=== PATIENT | male | born 1965 | race Caucasian/White ===

== ENCOUNTER 2023-01-31 15:10 | Emergency (ER) | payer OTHER ==
[2023-01-31 15:24] VITALS: BP 117/74; PULSE 98; RESP 20; TEMP 98.8
--- NOTE | 2023-01-31 15:45 | ED ---
General Adult HPI - General Chief complaint: Skin/Abscess/Foreign Body Stated complaint: R toe infection Time Seen by Provider: 01/31/23 15:31 Source: patient, RN notes reviewed, old records reviewed Mode of arrival: ambulatory - History of Present Illness Initial comments: 57-year-old male with history of diabetes presenting for evaluation of right second toe swelling and drainage. Patient reports this is been ongoing for approximately one month. He has had no fever, no chills. He does not check his blood glucose regularly. He states he still has feeling in the foot and has not had significant pain. His primary care provider had prescribed a topical or oral antibiotics but the patient states he did not start this. - Related Data Previous Rx's Medication Instructions Recorded Clindamycin [Cleocin] 450 mg PO TID 10 Days #90 cap 01/31/23 Allergies Allergy/AdvReac Type Severity Reaction Status Date / Time Penicillins Allergy Rash/Hives Verified 01/31/23 15:17 Sulfa (Sulfonamide Allergy Rash/Hives Verified 01/31/23 15:17 Antibiotics) Review of Systems ROS Statement: Those systems with pertinent positive or pertinent negative responses have been documented in the HPI. ROS Other: All systems not noted in ROS Statement are negative. Past Medical History Past Medical History: Diabetes Mellitus Additional Past Medical History / Comment(s): cataracts History of Any Multi-Drug Resistant Organisms: None Reported Past Surgical History: Adenoidectomy Past Psychological History: Depression Smoking Status: Vaper Past Alcohol Use History: Occasional Past Drug Use History: Marijuana General Exam General appearance: alert, in no apparent distress Head exam: Present: atraumatic, normocephalic Eye exam: Present: normal appearance ENT exam: Present: normal exam Respiratory exam: Absent: respiratory distress Cardiovascular Exam: Present: regular rate, normal rhythm GI/Abdominal exam: Absent: distended Extremities exam: Present: other (Erythema and drainage, swelling to the right second digit with minimal cellulitis at the base of the digit. There is normal cap refill, and 2+ pedal pulse.) Neurological exam: Present: alert, oriented X3, CN II-XII intact. Absent: motor sensory deficit Psychiatric exam: Present: normal affect, normal mood Course Vital Signs 01/31/23 15:10 Temperature 98.8 F Pulse Rate 98 Respiratory 20 Rate Blood Pressure 117/74 O2 Sat by Pulse 100 Oximetry Medical Decision Making - Medical Decision Making Was pt. sent in by a medical professional or institution (CHARANJIT Medina, CLINICAL PHARMACIST, urgent care, hospital, or longterm...) When possible be specific @ -No Did you speak to anyone other than the patient for history (EMS, parent, family, police, friend...)? What history was obtained from this source @ -No Did you review nursing and triage notes (agree or disagree)? Why? @ -I reviewed and agree with nursing and triage notes Were old charts reviewed (outside hosp., previous admission, EMS record, old EKG, old radiological studies, urgent care reports/EKG's, longterm records)? Report findings @ -No old charts were reviewed Differential Diagnosis (chest pain, altered mental status, abdominal pain women, abdominal pain men, vaginal bleeding, weakness, fever, dyspnea, syncope, headache, dizziness, GI bleed, back pain, seizure, CVA, palpatations, mental health, musculoskeletal)? @Cellulitis, diabetic foot ulcer, sepsis EKG interpreted by me (3pts min.). @ -As above X-rays interpreted by me (1pt min.). @ -None done CT interpreted by me (1pt min.). @ -None done U/S interpreted by me (1pt. min.). @ -None done What testing was considered but not performed or refused? (CT, X-rays, U/S, labs)? Why? @ -None What meds were considered but not given or refused? Why? @ -None Did you discuss the management of the patient with other professionals (professionals i.e. CHARANJIT Medina, CLINICAL PHARMACIST, lab, RT, psych nurse, social sciences department chair, director compensation, teacher, information assurance officer, case monitor)? Give summary @ -No Was smoking cessation discussed for >3mins.? @ -No Was critical care preformed (if so, how long)? @ -No Were there social determinants of health that impacted care today? How? (Homelessness, low income, unemployed, alcoholism, drug addiction, transportation, low edu. Level, literacy, decrease access to med. care, prison, rehab)? @ -No Was there de-escalation of care discussed even if they declined (Discuss DNR or withdrawal of care, Hospice)? DNR status @ -No What co-morbidities impacted this encounter? (DM, HTN, Smoking, COPD, CAD, Cancer, CVA, ARF, Chemo, Hep., AIDS, mental health diagnosis, sleep apnea, morbid obesity)? @ -[Diabetes Was patient admitted / discharged? Hospital course, mention meds given and route, prescriptions, significant lab abnormalities, going to OR and other pertinent info. @ 57-year-old male with diabetic foot ulcers to the right second toe with associated cellulitis. He has no systemic symptoms. This is been an ongoing issue for approximately one month. We'll trial oral antibiotics and follow-up with the wound center. He is given strict return parameters and instructed to return the emergency department with any systemic symptoms or worsening erythema despite being on oral antibiotics. He has a penicillin and sulfa ALLERGY and therefore he is started on clindamycin. He should also follow-up with his primary care provider. Undiagnosed new problem with uncertain prognosis? @ -No Drug Therapy requiring intensive monitoring for toxicity (Heparin, Nitro, Insulin, Cardizem)? @ -No Were any procedures done? @ -No Diagnosis/symptom? @ -Diabetic foot ulcer, cellulitis Acute, or Chronic, or Acute on Chronic? @ -Acute Uncomplicated (without systemic symptoms) or Complicated (systemic symptoms)? @ -default Side effects of treatment? @ -No Exacerbation, Progression, or Severe Exacerbation? @ -No Poses a threat to life or bodily function? How? (Chest pain, [place], [place], pneumonia, PE, COPD, DKA, ARF, appy, cholecystitis, CVA, Diverticulitis, Homicidal, Suicidal, threat to staff... and all critical care pts) @ -[Moderate risk, worsening infection, sepsis Disposition Clinical Impression: Diabetic toe ulcer, Cellulitis Disposition: HOME SELF-CARE Condition: Fair Instructions (If sedation given, give patient instructions): Cellulitis (ED), Diabetic Foot Ulcers (ED) Prescriptions: Clindamycin [Cleocin] 450 mg PO TID 10 Days #90 cap Is patient prescribed a controlled substance at d/c from ED?: No Referrals: Patricio Banuelos DO [Primary Care Provider] - 1-2 days [facility] [NON-STAFF] - 1-2 days Time of Disposition: 15:44
== END 2023-01-31 15:54 | disposition home or self-care (01) ==
LOC: EC 15:10
DX: L03.031 Cellulitis of right toe (principal); F12.90 Cannabis use, unspecified, uncomplicated; F17.290 Nicotine dependence, other tobacco product, uncomplicated; Z88.0 Allergy status to penicillin; Z88.2 Allergy status to sulfonamides; Z86.59 Personal history of other mental and behavioral disorders
CPT/HCPCS: 99283

== ENCOUNTER 2023-02-19 14:11 | Inpatient (IN) | payer OTHER ==
--- NOTE | 2023-02-19 15:22 | ED ---
Skin/Abscess/FB HPI - General Source: patient, RN notes reviewed Mode of arrival: ambulatory Limitations: no limitations <Li Lindsey - Last Filed: 02/19/23 15:21> <Cuong Enciso - Last Filed: 02/19/23 17:44> - General Chief complaint: Skin/Abscess/Foreign Body Stated complaint: Foot/Toe Infection Rt Time Seen by Provider: 02/19/23 15:20 - History of Present Illness Initial comments: This is a 57-year-old male who presents to the emergency department for concerns of a worsening diabetic foot infection. Patient was evaluated here on 01/31 and started on clindamycin. States that he feels like the wound is continuing to get worse. Denies any fevers or chills. I performed the QuickNote portion of this chart. Signed Li Lindsey PA-C. (Li Lindsey) 57-year-old diabetic male presenting to the ED with a chief complaint of right foot wound. Patient initially seen here on 01/31/23 and was discharged home with a prescription of clindamycin. He admits that due to his cataracts, is unsure if he is been taking his medications correctly. Rates that recently, wound has worsened. Patient states that it is spreading and has been draining purulent fluid. Denies fever. No other complaints. (Cuong Enciso) - Related Data Previous Rx's Medication Instructions Recorded Clindamycin [Cleocin] 450 mg PO TID 10 Days #90 cap 01/31/23 Allergies Allergy/AdvReac Type Severity Reaction Status Date / Time Penicillins Allergy Rash/Hives Verified 02/19/23 14:37 Sulfa (Sulfonamide Allergy Rash/Hives Verified 02/19/23 14:37 Antibiotics) Review of Systems ROS Other: All systems not noted in ROS Statement are negative. <Li Lindsey - Last Filed: 02/19/23 15:21> ROS Other: All systems not noted in ROS Statement are negative. <Cuong Enciso - Last Filed: 02/19/23 17:44> ROS Statement: Those systems with pertinent positive or pertinent negative responses have been documented in the HPI. Past Medical History Past Medical History: Diabetes Mellitus Additional Past Medical History / Comment(s): cataracts History of Any Multi-Drug Resistant Organisms: None Reported Past Surgical History: Adenoidectomy Past Psychological History: Depression Smoking Status: Vaper Past Alcohol Use History: Occasional Past Drug Use History: Marijuana <Li Lindsey - Last Filed: 02/19/23 15:21> General Exam Limitations: no limitations <Li Lindsey - Last Filed: 02/19/23 15:21> Limitations: no limitations General appearance: alert, in no apparent distress Respiratory exam: Present: normal lung sounds bilaterally Cardiovascular Exam: Present: regular rate, normal rhythm GI/Abdominal exam: Present: soft Extremities exam: Present: other (Right second toe at MTP approximately 2 x 2 cm of ulceration. At distal phalanx approximately 3 x 3 cm ulceration with surrounding warmth and erythema) Neurological exam: Present: alert, oriented X3 Psychiatric exam: Present: normal affect, normal mood <Cuong Enciso - Last Filed: 02/19/23 17:44> - General Exam Comments Initial Comments: Visual Physical Exam Vital signs reviewed General: Well-appearing, nontoxic, no acute distress. Head: Normocephalic, atraumatic Eyes: PERRLA, EOMI ENT: Airway patent Chest: Nonlabored breathing Skin: No visual rash, normal skin tone Neuro: Alert and oriented 3 Musculoskeletal: No gross abnormalities (Li Lindsey) Course Vital Signs 02/19/23 02/19/23 02/19/23 14:32 16:15 17:17 Temperature 98.6 F 99.4 F 98.6 F Pulse Rate 83 100 100 Respiratory 18 20 20 Rate Blood Pressure 88/56 104/65 104/65 O2 Sat by Pulse 99 99 97 Oximetry Medical Decision Making - Lab Data Result diagrams: 02/19/23 16:33 02/19/23 16:33 <Cuong Enciso - Last Filed: 02/19/23 17:44> - Medical Decision Making Was pt. sent in by a medical professional or institution (, PA, [facility], urgent care, hospital, or halfway...) When possible be specific @ -No Did you speak to anyone other than the patient for history (EMS, parent, family, police, friend...)? What history was obtained from this source @ -No Did you review nursing and triage notes (agree or disagree)? Why? @ -I reviewed and agree with nursing and triage notes Were old charts reviewed (outside hosp., previous admission, EMS record, old EKG, old radiological studies, urgent care reports/EKG's, halfway records)? Report findings @ -Prior chart reviewed on 01/31/23 showing prior visit here with prescription for clindamycin. Differential Diagnosis (chest pain, altered mental status, abdominal pain women, abdominal pain men, vaginal bleeding, weakness, fever, dyspnea, syncope, headache, dizziness, GI bleed, back pain, seizure, CVA, palpatations, mental health, musculoskeletal)? @ -MRSA, sepsis, osteomyelitis. This is not meant to be an all-inclusive list. EKG interpreted by me (3pts min.). @ -None X-rays interpreted by me (1pt min.). @ -X-ray shows bony destruction of the second phalanx consistent with osteomyelitis. CT interpreted by me (1pt min.). @ -None done U/S interpreted by me (1pt. min.). @ -None done What testing was considered but not performed or refused? (CT, X-rays, U/S, labs)? Why? @ -None What meds were considered but not given or refused? Why? @ -None Did you discuss the management of the patient with other professionals (professionals i.e. , CHARANJIT, [employer], lab, RT, psych nurse, social and political studies professor, photographic editor, teacher, staff mine warfare officer, onsite case manager)? Give summary @ -Spoke with Yajaira Umanzor NP, who accepted admission to [facility] Was smoking cessation discussed for >3mins.? @ -No Was critical care preformed (if so, how long)? @ -No Were there social determinants of health that impacted care today? How? (Homelessness, low income, unemployed, alcoholism, drug addiction, trans portation, low edu. Level, literacy, decrease access to med. care, intermediate, rehab)? @ -No Was there de-escalation of care discussed even if they declined (Discuss DNR or withdrawal of care, Hospice)? DNR status @ -No What co-morbidities impacted this encounter? (DM, HTN, Smoking, COPD, CAD, Cancer, CVA, ARF, Chemo, Hep., AIDS, mental health diagnosis, sleep apnea, morbid obesity)? @ -Diabetes Was patient admitted / discharged? Hospital course, mention meds given and route, prescriptions, significant lab abnormalities, going to OR and other pertinent info. @ -Admitted. Delia studies significant for a white count of 12.9, kidney injury with BUNs 25 and creatinine at 1.58, glucose 473, lactic acid 2.4, CRP 17.1. X-ray consistent with osteomyelitis. Patient will be admitted due to osteomyelitis, sepsis. Cultures and wound cultures obtained prior to starting IV antibiotics. Patient fluid resuscitation initiated here in the ED with 2 L bolus. Patient initially hypotensive with systolics 80s. Patient's systolic now 100s. Urgent tachycardic in the 100. Discussed plan of care with patient who is agreement. Undiagnosed new problem with uncertain prognosis? @ -No Drug Therapy requiring intensive monitoring for toxicity (Heparin, Nitro, Insulin, Cardizem)? @ -No Were any procedures done? @ -No Diagnosis/symptom? @ -Sepsis, osteomyelitis Acute, or Chronic, or Acute on Chronic? @ -Acute Uncomplicated (without systemic symptoms) or Complicated (systemic symptoms)? @ -Complicated, hypotension, tachycardia with acute kidney injury. Side effects of treatment? @ -No Exacerbation, Progression, or Severe Exacerbation? @ -No Poses a threat to life or bodily function? How? (Chest pain, [place], [place], pneumonia, PE, COPD, DKA, ARF, appy, cholecystitis, CVA, Diverticulitis, Homicidal, Suicidal, threat to staff... and all critical care pts) @ -Yes, Sepsis. (Cuong Enciso) - Lab Data Lab Results 02/19/23 02/19/23 02/19/23 Range/Units 16:33 16:33 16:33 WBC 12.9 H (3.8-10.6) k/uL RBC 3.97 L (4.30-5.90) m/uL Hgb 10.4 L (13.0-17.5) gm/dL Hct 33.6 L (39.0-53.0) % MCV 84.7 (80.0-100.0) fL MCH 26.2 (25.0-35.0) pg MCHC 30.9 L (31.0-37.0) g/dL RDW 12.8 (11.5-15.5) % Plt Count 356 (150-450) k/uL MPV 7.8 Neutrophils % 81 % Lymphocytes % 12 % Monocytes % 4 % Eosinophils % 1 % Basophils % 0 % Neutrophils # 10.4 H (1.3-7.7) k/uL Lymphocytes # 1.5 (1.0-4.8) k/uL Monocytes # 0.6 (0-1.0) k/uL Eosinophils # 0.1 (0-0.7) k/uL Basophils # 0.0 (0-0.2) k/uL Sodium 127 L (137-145) mmol/L Potassium 5.0 (3.5-5.1) mmol/L Chloride 96 L (98-107) mmol/L Carbon Dioxide 19 L (22-30) mmol/L Anion Gap 12 mmol/L BUN 25 H (9-20) mg/dL Creatinine 1.58 H (0.66-1.25) mg/dL Est GFR (CKD-EPI)AfAm 56 (>60 ml/min/1.73 sqM) Est GFR (CKD-EPI)NonAf 48 (>60 ml/min/1.73 sqM) Glucose 473 H (74-99) mg/dL Plasma Lactic Acid Kem 2.4 H* (0.7-2.0) mmol/L Calcium 9.0 (8.4-10.2) mg/dL Total Bilirubin 0.9 (0.2-1.3) mg/dL AST 35 (17-59) U/L ALT 26 (4-49) U/L Alkaline Phosphatase 124 (38-126) U/L C-Reactive Protein 17.1 H (<1.0) mg/dL Total Protein 7.1 (6.3-8.2) g/dL Albumin 3.4 L (3.5-5.0) g/dL Disposition <Li Lindsey - Last Filed: 02/19/23 15:21> Time of Disposition: 17:25 <Cuong Enciso - Last Filed: 02/19/23 17:44> Clinical Impression: Osteomyelitis Disposition: ADMITTED IP TO THIS HOSP Referrals: Patricio Banuelos DO [Primary Care Provider] - 1-2 days
--- NOTE | 2023-02-19 16:40 | XR ---
EXAMINATION TYPE: XR foot complete RT DATE OF EXAM: 02/19/2023 COMPARISON: NONE HISTORY: 57-year-old male diabetic ulcer right foot, infection, pain TECHNIQUE: 3 views FINDINGS: Soft tissue swelling of the second toe. There is osseous destruction of the second distal phalanx as well as the head and distal shaft of the middle phalanx. Some residual minimal bony debris remains di stally. There appears to be possible subacute fracture involving the base of the second proximal phal anx versus second site of infection. No soft tissue air. Tiny plantar spur. IMPRESSION: 1. Soft tissue swelling of the second toe with osseous destruction of the second distal phalanx and h jhonny of the middle phalanx. Findings in keeping with osteomyelitis. 2. A second area of lucency across the second proximal phalangeal base could represent a subacute fra cture or second site of infection.
[2023-02-19 16:44] LABS: Basophils % (A) 0 %; Eosinophils # (A) 0.1 k/uL (0-0.7); Eosinophils % (A) 1 %; HCT 33.6 % (39.0-53.0); HGB 10.4 gm/dL (13.0-17.5); Lymphocytes # (A) 1.5 k/uL (1.0-4.8); Lymphocytes % (A) 12 %; MCH 26.2 pg (25.0-35.0); MCHC 30.9 g/dL (31.0-37.0); MCV 84.7 fL (80.0-100.0); Mean Platelet Volume 7.8; Monocytes # (A) 0.6 k/uL (0-1.0); Monocytes % (A) 4 %; Neutrophils # (A) 10.4 k/uL (1.3-7.7); Neutrophils % (A) 81 %; Platelet Count 356 k/uL (150-450); RBC 3.97 m/uL (4.30-5.90); RDW 12.8 % (11.5-15.5); WBC 12.9 k/uL (3.8-10.6)
[2023-02-19 16:59] LABS: ALT 26 U/L (4-49); AST 35 U/L (17-59); African American GFR (CKD) 56 (>60 ml/min/1.73 sqM); Albumin 3.4 g/dL (3.5-5.0); Alkaline Phosphatase 124 U/L (38-126); Anion Gap 12 mmol/L; Blood Urea Nitrogen 25 mg/dL (9-20); Carbon Dioxide 19 mmol/L (22-30); Chloride 96 mmol/L (98-107); Glucose 473 mg/dL (74-99); Non-African American GFR(CKD) 48 (>60 ml/min/1.73 sqM); Sodium 127 mmol/L (137-145); Total Bilirubin 0.9 mg/dL (0.2-1.3); Total Protein 7.1 g/dL (6.3-8.2)
[2023-02-19] MEDS ORDERED: SODIUM CHLORIDE 0.9% 1,000 ML IV STA (17:04)
[2023-02-19 17:11] LABS: C Reactive Protein 17.1 mg/dL (<1.0)
[2023-02-19] MEDS ORDERED: SODIUM CHLORIDE 0.9% 2,000 ML IV STA (17:13)
[2023-02-19] MEDS ORDERED: VANCOMYCIN IV PER PHARMACY 1 EACH MISC MISCELLANE PRN (17:45)
[2023-02-19] MEDS ORDERED: ACETAMINOPHEN TAB 325 MG TAB PO PRN (17:49)
[2023-02-19] MEDS ORDERED: IBUPROFEN 400 MG TAB PO PRN (17:49)
[2023-02-19] MEDS ORDERED: NALOXONE 0.4 MG/ML 1 ML VIAL IV PRN (17:49)
[2023-02-19] MEDS ORDERED: VANCOMYCIN 1,500 MG in SODIUM CHLORIDE 0.9% 500 ML 500 ML IVPB ONE (18:00)
[2023-02-19] MEDS: SODIUM CHLORIDE 0.9% 1,000 ML IV SCH ×2 (18:28→23:37)
[2023-02-19 20:04] LABS: Glucose,Whole Blood 291 mg/dL (70-110)
[2023-02-19] MEDS: INSULIN ASPART (NovoLOG) 100 UNIT/ML VIAL SQ SCH (23:36)
[2023-02-20 06:00] LABS: Glucose,Whole Blood 122 mg/dL (70-110)
[2023-02-20] MEDS: INSULIN ASPART (NovoLOG) 100 UNIT/ML VIAL SQ SCH ×4 (06:24→23:05)
[2023-02-20 08:15] LABS: African American GFR (CKD) 79 (>60 ml/min/1.73 sqM); Anion Gap 7 mmol/L; Blood Urea Nitrogen 19 mg/dL (9-20); Calcium 8.4 mg/dL (8.4-10.2); Carbon Dioxide 23 mmol/L (22-30); Chloride 103 mmol/L (98-107); Glucose 115 mg/dL (74-99); Non-African American GFR(CKD) 69 (>60 ml/min/1.73 sqM); Potassium 4.6 mmol/L (3.5-5.1); Sodium 133 mmol/L (137-145)
[2023-02-20] MEDS: ATORVASTATIN 10 MG TAB PO SCH (08:17)
[2023-02-20] MEDS ORDERED: VANCOMYCIN 1,500 MG in SODIUM CHLORIDE 0.9% 500 ML 500 ML IVPB SCH (11:00)
[2023-02-20 11:31] LABS: Glucose,Whole Blood 159 mg/dL (70-110)
[2023-02-20] MEDS: SODIUM CHLORIDE 0.9% 1,000 ML IV SCH ×2 (11:55→18:15)
[2023-02-20 13:25] LABS: Basophils # (A) 0.07 X 10*3/uL (0.00-0.10); Basophils % (A) 0.6 %; Eosinophils # (A) 0.15 X 10*3/uL (0.04-0.35); Eosinophils % (A) 1.3 %; HCT 28.4 % (39.6-50.0); Lymphocytes % (A) 19.4 %; MCH 26.8 pg (27.0-32.0); MCHC 31.7 d/dL (32.0-37.0); MCV 84.5 FL (80.0-97.0); Mean Platelet Volume 9.4 FL (9.5-12.2); Monocytes # (A) 0.69 X 10*3/uL (0.20-1.00); Monocytes % (A) 5.8 %; NRBC Per 100 WBC 0 X 10*3/uL (0.00-0.01); Neutrophils # (A) 8.57 X 10*3/uL (1.80-7.70); Neutrophils % (A) 72.1 %; Platelet Count 290 X 10*3/uL (140-440); RBC 3.36 X 10*6/uL (4.40-5.60); RDW 12.7 % (11.5-14.5); WBC 11.87 X 10*3/uL (4.50-10.00)
[2023-02-20] MEDS ORDERED: INDOMETHACIN 25 MG CAP PO PRN (15:15)
--- NOTE | 2023-02-20 15:48 | P.GSCN ---
History of Present Illness History of present illness: 57-year-old white male patient has history of diabetes patient came on 23 history of right foot second toe swelling and some drainage and this was going on for approximately 1 month patient had no fever or chills and he does not check his blood sugar regularly. Patient was sent home on clindamycin didn't keep his follow-up in the wound clinic patient came today with marked drainage o f the right foot second toe and big toe there is a open wound of the second toe with some drainage of pus and also scab formation noted on the right foot is also or redness spreading to the Doppler dorsal aspect of the foot patient had a x-ray the right foot showed soft tissue swelling and dislocation of the mid and distal phalanx of the right foot second toe Medical history history of diabetes and also patient has history of depression Chest is clear good air air entry both lungs first and second sound normal Abdomen soft nontender vascular femorals are palpable bilateral dorsal pedis is palpable right foot second and big toe has a infected gangrene Plan is patient is an IV antibiotic under care of infectious disease we'll keep the patient and he'll midnight and patient will be scheduled tomorrow for ray amputation of the right foot big toe and second toe this can complication discu ssed patient understands Past Medical History Past Medical History: Diabetes Mellitus Additional Past Medical History / Comment(s): cataracts History of Any Multi-Drug Resistant Organisms: None Reported Past Surgical History: Adenoidectomy Past Psychological History: Depression Smoking Status: Vaper Past Alcohol Use History: Occasional Past Drug Use History: Marijuana Medications and Allergies Home Medications Medication Instructions Recorded Confirmed Type Clindamycin [Cleocin] 450 mg PO TID 10 Days #90 cap 01/31/23 02/19/23 Rx DULoxetine HCL [Cymbalta] 120 mg PO DAILY 02/19/23 02/19/23 History Dulaglutide [Trulicity] 1.5 mg SQ WE 02/19/23 02/19/23 History Indomethacin [Indocin] 50 mg PO Q8H PRN 02/19/23 02/19/23 History Simvastatin [Zocor] 20 mg PO DAILY 02/19/23 02/19/23 History lisinopriL [Zestril] 5 mg PO DAILY 02/19/23 02/19/23 History Allergies Allergy/AdvReac Type Severity Reaction Status Date / Time Penicillins Allergy Rash/Hives Verified 02/19/23 18:19 Sulfa (Sulfonamide Allergy Rash/Hives Verified 02/19/23 18:19 Antibiotics) Surgical - Exam Vital Signs Temp Pulse Resp BP Pulse Ox 98.6 F 83 18 88/56 99 02/19/23 14:32 02/19/23 14:32 02/19/23 14:32 02/19/23 14:32 02/19/23 14:32 Results - Labs 02/20/23 07:26 02/20/23 07:26 Abnormal Lab Results - Last 24 Hours (Table) 02/19/23 02/19/23 02/19/23 Range/Units 16:33 16:33 16:33 WBC 12.9 H (3.8-10.6) k/uL RBC 3.97 L (4.30-5.90) m/uL Hgb 10.4 L (13.0-17.5) gm/dL Hct 33.6 L (39.0-53.0) % MCH (27.0-32.0) pg MCHC 30.9 L (31.0-37.0) g/dL MPV (9.5-12.2) FL Neutrophils # 10.4 H (1.3-7.7) k/uL Sodium 127 L (137-145) mmol/L Chloride 96 L (98-107) mmol/L Carbon Dioxide 19 L (22-30) mmol/L BUN 25 H (9-20) mg/dL Creatinine 1.58 H (0.66-1.25) mg/dL Glucose 473 H (74-99) mg/dL POC Glucose (mg/dL) (70-110) mg/dL Plasma Lactic Acid Kem 2.4 H* (0.7-2.0) mmol/L C-Reactive Protein 17.1 H (<1.0) mg/dL Albumin 3.4 L (3.5-5.0) g/dL 02/19/23 02/20/23 02/20/23 Range/Units 20:03 05:59 07:26 WBC (3.8-10.6) k/uL RBC (4.30-5.90) m/uL Hgb (13.0-17.5) gm/dL Hct (39.0-53.0) % MCH (27.0-32.0) pg MCHC (31.0-37.0) g/dL MPV (9.5-12.2) FL Neutrophils # (1.3-7.7) k/uL Sodium 133 L (137-145) mmol/L Chloride (98-107) mmol/L Carbon Dioxide (22-30) mmol/L BUN (9-20) mg/dL Creatinine (0.66-1.25) mg/dL Glucose 115 H (74-99) mg/dL POC Glucose (mg/dL) 291 H 122 H (70-110) mg/dL Plasma Lactic Acid Kem (0.7-2.0) mmol/L C-Reactive Protein (<1.0) mg/dL Albumin (3.5-5.0) g/dL 02/20/23 02/20/23 Range/Units 07:26 11:30 WBC 11.87 H (3.8-10.6) k/uL RBC 3.36 L (4.30-5.90) m/uL Hgb 9.0 L (13.0-17.5) gm/dL Hct 28.4 L (39.0-53.0) % MCH 26.8 L (27.0-32.0) pg MCHC 31.7 L (31.0-37.0) g/dL MPV 9.4 L (9.5-12.2) FL Neutrophils # 8.57 H (1.3-7.7) k/uL Sodium (137-145) mmol/L Chloride (98-107) mmol/L Carbon Dioxide (22-30) mmol/L BUN (9-20) mg/dL Creatinine (0.66-1.25) mg/dL Glucose (74-99) mg/dL POC Glucose (mg/dL) 159 H (70-110) mg/dL Plasma Lactic Acid Kem (0.7-2.0) mmol/L C-Reactive Protein (<1.0) mg/dL Albumin (3.5-5.0) g/dL Diabetes panel 02/19/23 02/20/23 Range/Units 16:33 07:26 Sodium 127 L 133 L (137-145) mmol/L Potassium 5.0 4.6 (3.5-5.1) mmol/L Chloride 96 L 103 (98-107) mmol/L Carbon Dioxide 19 L 23 (22-30) mmol/L BUN 25 H 19 (9-20) mg/dL Creatinine 1.58 H 1.18 (0.66-1.25) mg/dL Glucose 473 H 115 H (74-99) mg/dL Calcium 9.0 8.4 (8.4-10.2) mg/dL AST 35 (17-59) U/L ALT 26 (4-49) U/L Alkaline Phosphatase 124 (38-126) U/L Total Protein 7.1 (6.3-8.2) g/dL Albumin 3.4 L (3.5-5.0) g/dL Calcium panel 02/19/23 02/20/23 Range/Units 16:33 07:26 Calcium 9.0 8.4 (8.4-10.2) mg/dL Albumin 3.4 L (3.5-5.0) g/dL Pituitary panel 02/19/23 02/20/23 Range/Units 16:33 07:26 Sodium 127 L 133 L (137-145) mmol/L Potassium 5.0 4.6 (3.5-5.1) mmol/L Chloride 96 L 103 (98-107) mmol/L Carbon Dioxide 19 L 23 (22-30) mmol/L BUN 25 H 19 (9-20) mg/dL Creatinine 1.58 H 1.18 (0.66-1.25) mg/dL Glucose 473 H 115 H (74-99) mg/dL Calcium 9.0 8.4 (8.4-10.2) mg/dL Adrenal panel 02/19/23 02/20/23 Range/Units 16:33 07:26 Sodium 127 L 133 L (137-145) mmol/L Potassium 5.0 4.6 (3.5-5.1) mmol/L Chloride 96 L 103 (98-107) mmol/L Carbon Dioxide 19 L 23 (22-30) mmol/L BUN 25 H 19 (9-20) mg/dL Creatinine 1.58 H 1.18 (0.66-1.25) mg/dL Glucose 473 H 115 H (74-99) mg/dL Calcium 9.0 8.4 (8.4-10.2) mg/dL Total Bilirubin 0.9 (0.2-1.3) mg/dL AST 35 (17-59) U/L ALT 26 (4-49) U/L Alkaline Phosphatase 124 (38-126) U/L Total Protein 7.1 (6.3-8.2) g/dL Albumin 3.4 L (3.5-5.0) g/dL
[2023-02-20] MEDS: DULoxetine HCL 60 MG CAPSULE.DR PO SCH (15:53)
[2023-02-20] MEDS: CEFEPIME 2 GM in SODIUM CHLORIDE 0.9% 100 ML IVPB SCH ×2 (15:54→23:52)
[2023-02-20] MEDS: lisinopriL 5 MG TAB PO SCH (15:54)
[2023-02-20] MEDS: metroNIDAZOLE 500 MG TAB PO SCH ×2 (15:54→23:52)
[2023-02-20 17:00] LABS: Glucose,Whole Blood 166 mg/dL (70-110)
--- NOTE | 2023-02-20 19:37 | P.CONS ---
History of Present Illness - Reason for Consult Consult date: 02/20/23 - History of Present Illness Patient is a 57-year-old male with a past medical history significant for diabetes mellitus recently started having a problem with the right second toe with a wound on the dorsal aspect for the patient was evaluated at [facility] on 01/31/2023 patient was discharged home on oral clindamycin and was advised to follow-up at the wound care center with the patient did not make any appointment he was discharged on clindamycin 150 mg 3 p.o. 3 times daily however he was just taking only 1 pill 3 times a day patient subsequently noticed to having increasing swelling redness and foul-smelling drainage especially from the right second toe and also involving the dorsum aspect of the right big toe with worsening swelling redness and foul-smelling drainage patient presented to hospital patient to have diabetic neuropathy denies significant pain he did have some pressure associated with it patient did have some chills denies high-grade fever on presentation to hospital he did have low-grade fever of 99.8 F patient did have white count of 12.9 with a left shift kidney func tion has been normal liver exams are normal lactic acid was elevated patient did have a x-ray of the foot soft tissue swelling of the second toe with a bony destruction of the second distal phalanx and half of the middle phalanx concerning for osteomyelitis patient was started on vancomycin infectious disease was consulted for further management of antibiotic therapy Past Medical History Past Medical History: Diabetes Mellitus Additional Past Medical History / Comment(s): cataracts History of Any Multi-Drug Resistant Organisms: None Reported Past Surgical History: Adenoidectomy Past Psychological History: Depression Smoking Status: Vaper Past Alcohol Use History: Occasional Past Drug Use History: Marijuana Medications and Allergies Home Medications Medication Instructions Recorded Confirmed Type Clindamycin [Cleocin] 450 mg PO TID 10 Days #90 cap 01/31/23 02/19/23 Rx DULoxetine HCL [Cymbalta] 120 mg PO DAILY 02/19/23 02/19/23 History Dulaglutide [Trulicity] 1.5 mg SQ WE 02/19/23 02/19/23 History Indomethacin [Indocin] 50 mg PO Q8H PRN 02/19/23 02/19/23 History Simvastatin [Zocor] 20 mg PO DAILY 02/19/23 02/19/23 History lisinopriL [Zestril] 5 mg PO DAILY 02/19/23 02/19/23 History Allergies Allergy/AdvReac Type Severity Reaction Status Date / Time Penicillins Allergy Rash/Hives Verified 02/19/23 18:19 Sulfa (Sulfonamide Allergy Rash/Hives Verified 02/19/23 18:19 Antibiotics) Physical Exam Vitals: Vital Signs Temp Pulse Pulse Resp BP BP Pulse Ox 02/20/23 06:56 98.7 F 87 18 92/53 99 02/20/23 01:15 96.7 F L 93 18 122/56 96 02/19/23 19:10 98.8 F 67 18 100/64 100 02/19/23 18:31 99.3 F 89 17 98/83 99 02/19/23 18:12 99.8 F H 71 20 100/79 94 L 02/19/23 17:17 98.6 F 100 20 104/65 97 02/19/23 16:15 99.4 F 100 20 104/65 99 02/19/23 14:32 98.6 F 83 18 88/56 99 Intake and Output 02/19/23 02/20/23 02/20/23 22:59 06:59 14:59 Other: # Voids 1 Weight 90.718 kg Results CBC & Chem 7: 02/20/23 07:26 02/20/23 07:26 Labs: Abnormal Lab Results - Last 24 Hours (Table) 02/19/23 02/19/23 02/19/23 Range/Units 16:33 16:33 16:33 WBC 12.9 H (3.8-10.6) k/uL RBC 3.97 L (4.30-5.90) m/uL Hgb 10.4 L (13.0-17.5) gm/dL Hct 33.6 L (39.0-53.0) % MCHC 30.9 L (31.0-37.0) g/dL Neutrophils # 10.4 H (1.3-7.7) k/uL Sodium 127 L (137-145) mmol/L Chloride 96 L (98-107) mmol/L Carbon Dioxide 19 L (22-30) mmol/L BUN 25 H (9-20) mg/dL Creatinine 1.58 H (0.66-1.25) mg/dL Glucose 473 H (74-99) mg/dL POC Glucose (mg/dL) (70-110) mg/dL Plasma Lactic Acid Kem 2.4 H* (0.7-2.0) mmol/L C-Reactive Protein 17.1 H (<1.0) mg/dL Albumin 3.4 L (3.5-5.0) g/dL 02/19/23 02/20/23 02/20/23 Range/Units 20:03 05:59 07:26 WBC (3.8-10.6) k/uL RBC (4.30-5.90) m/uL Hgb (13.0-17.5) gm/dL Hct (39.0-53.0) % MCHC (31.0-37.0) g/dL Neutrophils # (1.3-7.7) k/uL Sodium 133 L (137-145) mmol/L Chloride (98-107) mmol/L Carbon Dioxide (22-30) mmol/L BUN (9-20) mg/dL Creatinine (0.66-1.25) mg/dL Glucose 115 H (74-99) mg/dL POC Glucose (mg/dL) 291 H 122 H (70-110) mg/dL Plasma Lactic Acid Kem (0.7-2.0) mmol/L C-Reactive Protein (<1.0) mg/dL Albumin (3.5-5.0) g/dL 02/20/23 Range/Units 11:30 WBC (3.8-10.6) k/uL RBC (4.30-5.90) m/uL Hgb (13.0-17.5) gm/dL Hct (39.0-53.0) % MCHC (31.0-37.0) g/dL Neutrophils # (1.3-7.7) k/uL Sodium (137-145) mmol/L Chloride (98-107) mmol/L Carbon Dioxide (22-30) mmol/L BUN (9-20) mg/dL Creatinine (0.66-1.25) mg/dL Glucose (74-99) mg/dL POC Glucose (mg/dL) 159 H (70-110) mg/dL Plasma Lactic Acid Kem (0.7-2.0) mmol/L C-Reactive Protein (<1.0) mg/dL Albumin (3.5-5.0) g/dL Assessment and Plan Plan: 1patient was in the hospital with extensive right second and first toe diabetic foot infection concerning for wet gangrene and did have bony destruction on the x-ray concerning for osteomyelitis failing outpatient oral clindamycin therapy. 2patient with multiple antibiotic allergies that would limit the number of antibiotics safe to use. 3we will continue patient on vancomycin watching his kidney function closely however and cefepime and Flagyl to cover for the gram-negative and anaerobes 4we will consult vascular surgery for possible debridement versus amputation of the toe and deep culture We will follow on clinical condition and cultures to further adjust medication if needed Thank you for this consultation we will follow the patient along with you Dictation was produced using [employer] dictation software. please excuse any grammatical, word or spelling errors. Time with Patient: Greater than 30
[2023-02-20 20:18] LABS: Glucose,Whole Blood 150 mg/dL (70-110)
[2023-02-20] MEDS: VANCOMYCIN 1,500 MG in SODIUM CHLORIDE 0.9% 500 ML 500 ML IVPB SCH (23:52)
[2023-02-21] MEDS: SODIUM CHLORIDE 0.9% 1,000 ML IV SCH ×3 (00:11→16:27)
--- NOTE | 2023-02-21 01:49 | P.HPIM ---
History of Present Illness H&P Date: 02/20/23 Chief Complaint: foot infection Patient 57-year-old male with a known history of diabetes type 2 [id number], depression and history of vaping and marijuana use pres ents to ER with complaints of worsening right foot infection. Patient was seen in the ER on 01/31/2023 Menostar antibiotics clindamycin. Patient did take his medications with infectious getting worse which made him come to the ER. Patient is unsure he has been taking his medications correctly and states that he does have cataracts. Wound is draining purulent discharge. Otherwise denies any fever or chills. No cough or sputum problem. No chest pain. No leg swelling. X-ray of the foot showed soft tissue swelling of the second toe with osseous destruction of the second distal phalanx and half of the middle phalanx. Findings in keeping with osteomyelitis. A second area of lucency requesting second proximal phalangeal base could represent a subacute fracture second site of infection. Laboratory data WBC 12.9 hemoglobin 10.4 and platelets 356. Sodium 127 potassium 5.0 chloride 96 bicarb is 19 BUN 25 and creatinine 1.58 and blood sugar is 473. Lactic acid 2.4 CRP 17.1. Liver enzymes are not elevated. Review of Systems Constitutional: Patient denies any fever or chills . no Generalized weakness. Abdomen: Patient denied any nausea or vomiting or abd. pain Cardiovascular: Patient denies any chest pain or short of breath no palpitations. Respiratory: patient denied any cough . no sputum production. No shortness of breath Neurologic: Patient denied any numbness or tingling headache. Musculoskeletal: Patient denies any complaints of joint swelling or deformity. rt foot infection Skin: Negative Psychiatric: Negative Endocrine: No heat or cold intolerance. No recent weight gain. Genitourinary: No dysuria or hematuria. All other 14 point ROS negative except the above Past Medical History Past Medical History: Diabetes Mellitus Additional Past Medical History / Comment(s): cataracts History of Any Multi-Drug Resistant Organisms: None Reported Past Surgical History: Adenoidectomy Past Psychological History: Depression Smoking Status: Vaper Past Alcohol Use History: Occasional Past Drug Use History: Marijuana Medications and Allergies Home Medications Medication Instructions Recorded Confirmed Type Clindamycin [Cleocin] 450 mg PO TID 10 Days #90 cap 01/31/23 02/19/23 Rx DULoxetine HCL [Cymbalta] 120 mg PO DAILY 02/19/23 02/19/23 History Dulaglutide [Trulicity] 1.5 mg SQ WE 02/19/23 02/19/23 History Indomethacin [Indocin] 50 mg PO Q8H PRN 02/19/23 02/19/23 History Simvastatin [Zocor] 20 mg PO DAILY 02/19/23 02/19/23 History lisinopriL [Zestril] 5 mg PO DAILY 02/19/23 02/19/23 History Allergies Allergy/AdvReac Type Severity Reaction Status Date / Time Penicillins Allergy Rash/Hives Verified 02/19/23 18:19 Sulfa (Sulfonamide Allergy Rash/Hives Verified 02/19/23 18:19 Antibiotics) Physical Exam Vitals: Vital Signs Temp Pulse Pulse Resp BP BP Pulse Ox 02/20/23 06:56 98.7 F 87 18 92/53 99 02/20/23 01:15 96.7 F L 93 18 122/56 96 02/19/23 19:10 98.8 F 67 18 100/64 100 02/19/23 18:31 99.3 F 89 17 98/83 99 02/19/23 18:12 99.8 F H 71 20 100/79 94 L 02/19/23 17:17 98.6 F 100 20 104/65 97 02/19/23 16:15 99.4 F 100 20 104/65 99 02/19/23 14:32 98.6 F 83 18 88/56 99 Intake and Output 02/19/23 02/20/23 02/20/23 22:59 06:59 14:59 Other: # Voids 1 Weight 90.718 kg PHYSICAL EXAMINATION: Patient is lying in the bed comfortably, no acute distress, awake alert and oriented.. HEENT: Normocephalic. Neck is supple. Pupils reactive. Nostrils clear. Oral cavity is moist. Neck reveals no JVD, carotid bruits, or thyromegaly. CHEST EXAMINATION: Trachea is central. Symmetrical expansion. Lung meza clear to auscultation and percussion. CARDIAC: Normal S1, S2 with no gallops. No murmurs ABDOMEN: Soft. Bowel sounds present. Nontender. No organomegaly. No abdominal bruits. Extremities: reveal no edema. Right second toe with gangrene with serosanguineous and purulent drainage. No clubbing or cyanosis Neurologically awake, alert, oriented x3 with well-coordinated movements. No focal deficits noted Skin: No rash or skin lesions. Psychiatric: Coperative. Nonsuicidal, Musculoskeletal: No joint swelling or deformity. Normal range of motion. Results CBC & Chem 7: 02/20/23 07:26 02/20/23 07:26 Labs: Abnormal Lab Results - Last 24 Hours (Table) 02/19/23 02/19/23 02/19/23 Range/Units 16:33 16:33 16:33 WBC 12.9 H (3.8-10.6) k/uL RBC 3.97 L (4.30-5.90) m/uL Hgb 10.4 L (13.0-17.5) gm/dL Hct 33.6 L (39.0-53.0) % MCH (27.0-32.0) pg MCHC 30.9 L (31.0-37.0) g/dL MPV (9.5-12.2) FL Neutrophils # 10.4 H (1.3-7.7) k/uL Sodium 127 L (137-145) mmol/L Chloride 96 L (98-107) mmol/L Carbon Dioxide 19 L (22-30) mmol/L BUN 25 H (9-20) mg/dL Creatinine 1.58 H (0.66-1.25) mg/dL Glucose 473 H (74-99) mg/dL POC Glucose (mg/dL) (70-110) mg/dL Plasma Lactic Acid Kem 2.4 H* (0.7-2.0) mmol/L C-Reactive Protein 17.1 H (<1.0) mg/dL Albumin 3.4 L (3.5-5.0) g/dL 02/19/23 02/20/23 02/20/23 Range/Units 20:03 05:59 07:26 WBC (3.8-10.6) k/uL RBC (4.30-5.90) m/uL Hgb (13.0-17.5) gm/dL Hct (39.0-53.0) % MCH (27.0-32.0) pg MCHC (31.0-37.0) g/dL MPV (9.5-12.2) FL Neutrophils # (1.3-7.7) k/uL Sodium 133 L (137-145) mmol/L Chloride (98-107) mmol/L Carbon Dioxide (22-30) mmol/L BUN (9-20) mg/dL Creatinine (0.66-1.25) mg/dL Glucose 115 H (74-99) mg/dL POC Glucose (mg/dL) 291 H 122 H (70-110) mg/dL Plasma Lactic Acid Kem (0.7-2.0) mmol/L C-Reactive Protein (<1.0) mg/dL Albumin (3.5-5.0) g/dL 02/20/23 02/20/23 Range/Units 07:26 11:30 WBC 11.87 H (3.8-10.6) k/uL RBC 3.36 L (4.30-5.90) m/uL Hgb 9.0 L (13.0-17.5) gm/dL Hct 28.4 L (39.0-53.0) % MCH 26.8 L (27.0-32.0) pg MCHC 31.7 L (31.0-37.0) g/dL MPV 9.4 L (9.5-12.2) FL Neutrophils # 8.57 H (1.3-7.7) k/uL Sodium (137-145) mmol/L Chloride (98-107) mmol/L Carbon Dioxide (22-30) mmol/L BUN (9-20) mg/dL Creatinine (0.66-1.25) mg/dL Glucose (74-99) mg/dL POC Glucose (mg/dL) 159 H (70-110) mg/dL Plasma Lactic Acid Kem (0.7-2.0) mmol/L C-Reactive Protein (<1.0) mg/dL Albumin (3.5-5.0) g/dL Thrombosis Risk Factor Assmnt - DVT/VTE Prophylaxis DVT/VTE Prophylaxis: Pharmacologic Prophylaxis ordered - Choose All That Apply Each Factor Represents 1 point: Age 41-60 years Thrombosis Risk Factor Assessment Total Risk Factor Score: 1 Thrombosis Risk Factor Assessment Level: Low Risk Assessment and Plan Assessment: Acute right diabetic foot infection with second toe gangrenous changes and osteomyelitis.Failed outpatient antibiotic therapy. Sepsis secondary to above Hyperglycemia with uncontrolled diabetes type 2 Acute kidney injury likely prerenal Lactic acidosis Cataracts Depression History of vaping and marijuana use DVT prophylaxis with heparin subcu Plan: Patient will be continued on antibiotics in the form of vancomycin and cefepime. ID and vascular surgery was consulted. Continue with IV hydration and monitor renal function. DVT prophylaxis and GI prophylaxis. Follow-up blood cultures and wound cultures. Prognosis guarded at this point. Time with Patient: Greater than 30
[2023-02-21] MEDS: CEFEPIME 2 GM in SODIUM CHLORIDE 0.9% 100 ML IVPB SCH ×3 (04:12→21:24)
[2023-02-21 06:19] LABS: Glucose,Whole Blood 157 mg/dL (70-110)
[2023-02-21] MEDS: INSULIN ASPART (NovoLOG) 100 UNIT/ML VIAL SQ SCH ×4 (06:45→21:25)
[2023-02-21 06:48] LABS: African American GFR (CKD) 82 (>60 ml/min/1.73 sqM); Anion Gap 7 mmol/L; Blood Urea Nitrogen 20 mg/dL (9-20); Calcium 8.4 mg/dL (8.4-10.2); Carbon Dioxide 21 mmol/L (22-30); Chloride 105 mmol/L (98-107); Glucose 145 mg/dL (74-99); Non-African American GFR(CKD) 71 (>60 ml/min/1.73 sqM); Potassium 4.6 mmol/L (3.5-5.1); Sodium 133 mmol/L (137-145)
[2023-02-21] MEDS: ATORVASTATIN 10 MG TAB PO SCH (07:29)
[2023-02-21] MEDS: FAMOTIDINE 20 MG TAB PO SCH (07:29)
[2023-02-21] MEDS: HEPARIN SODIUM,PORCINE/PF 5,000 UNIT/0.5 ML SYRINGE SQ SCH ×2 (07:29→16:27)
[2023-02-21] MEDS: lisinopriL 5 MG TAB PO SCH (07:30)
[2023-02-21] MEDS: metroNIDAZOLE 500 MG TAB PO SCH ×3 (07:34→21:25)
[2023-02-21] MEDS: DULoxetine HCL 60 MG CAPSULE.DR PO SCH (07:34)
[2023-02-21 08:18] LABS: Basophils # (A) 0.05 X 10*3/uL (0.00-0.10); Basophils % (A) 0.5 %; Eosinophils # (A) 0.31 X 10*3/uL (0.04-0.35); Eosinophils % (A) 3.1 %; HCT 26.9 % (39.6-50.0); HGB 8.9 d/dL (12.0-15.0); Lymphocytes # (A) 1.84 X 10*3/uL (0.90-5.00); Lymphocytes % (A) 18.5 %; MCH 27.5 pg (27.0-32.0); MCHC 33.1 d/dL (32.0-37.0); Mean Platelet Volume 9.2 FL (9.5-12.2); Monocytes # (A) 0.57 X 10*3/uL (0.20-1.00); Monocytes % (A) 5.7 %; NRBC Per 100 WBC 0 X 10*3/uL (0.00-0.01); Neutrophils # (A) 7.13 X 10*3/uL (1.80-7.70); Neutrophils % (A) 71.6 %; Platelet Count 280 X 10*3/uL (140-440); RBC 3.24 X 10*6/uL (4.40-5.60); RDW 12.7 % (11.5-14.5); WBC 9.96 X 10*3/uL (4.50-10.00)
[2023-02-21] MEDS: VANCOMYCIN 1,500 MG in SODIUM CHLORIDE 0.9% 500 ML 500 ML IVPB SCH (11:40)
[2023-02-21 11:51] LABS: Glucose,Whole Blood 134 mg/dL (70-110)
--- NOTE | 2023-02-21 13:27 | P.PN ---
Subjective Patient 57-year-old male with a known history of diabetes type 2 [id number], depression and history of vaping and marijuana use presents to ER with complaints of worsening right foot infection. Patient was seen in the ER on 01/31/2023 Menostar antibiotics clindamycin. Patient did take his medications with infectious getting worse which made him come to the ER. Patient is unsure he has been taking his medications correctly and states that he does have cataracts. Wound is draining purulent discharge. Otherwise denies any fever or chills. No cough or sputum problem. No chest pain. No leg swelling. X-ray of the foot showed soft tissue swelling of the second toe with osseous destruction of the second distal phalanx and half of the middle phalanx. Findings in keeping with osteomyelitis. A second area of lucency requesting second proximal phalangeal base could represent a subacute fracture second site of infection. Laboratory data WBC 12.9 hemoglobin 10.4 and platelets 356. Sodium 127 potassium 5.0 chloride 96 bicarb is 19 BUN 25 and creatinine 1.58 and blood sugar is 473. Lactic acid 2.4 CRP 17.1. Liver enzymes are not elevated. 02/21/2023 patient with right foot infection with some gangrenous changes that failed outpatient therapy Patient planned to undergo debridement with vascular surgery to him, I talked to the patient this morning and he AGREEABLE to this plan and he is willing to undergo debridement. Remains on broad-spectrum antibiotics, IV vancomycin, cefepime and Flagyl and normal saline 75 mL/h Objective - Vital Signs Vital signs: Vital Signs Temp 97.5 F L 02/21/23 07:29 Pulse 89 02/21/23 07:29 Resp 20 02/21/23 07:29 BP 103/65 02/21/23 07:29 Pulse Ox 98 02/21/23 07:29 FiO2 Intake & Output 02/20/23 02/21/23 02/21/23 18:59 06:59 18:59 Other: Voiding Method Toilet # Voids 2 2 - Exam GENERAL: The patient is alert and oriented x3, not in any acute distress. Well developed, well nourished. HEENT: Pupils are round and equally reacting to light. EOMI. No scleral icterus. No conjunctival pallor. Normocephalic, atraumatic. No pharyngeal erythema. No thyromegaly. CARDIOVASCULAR: S1 and S2 present. No murmurs, rubs, or gallops. PULMONARY: Chest is clear to auscultation, no wheezing , no crackles. ABDOMEN: Soft, nontender, nondistended, normoactive bowel sounds. No palpable organomegaly. MUSCULOSKELETAL: No joint swelling or deformity. -EXTREMITIES: No cyanosis, clubbing, or pedal edema. Right diabetic foot infe ction of the big toe with dressing in place NEUROLOGICAL: Gross neurological examination did not reveal any focal deficits. SKIN: No rashes. no petechiae. - Labs CBC & Chem 7: 02/21/23 06:05 02/21/23 06:05 Labs: Abnormal Lab Results - Last 24 Hours (Table) 02/20/23 02/20/23 02/20/23 Range/Units 07:26 16:59 20:17 WBC 11.87 H (4.50-10.00) X 10*3/uL RBC 3.36 L (4.40-5.60) X 10*6/uL Hgb 9.0 L (12.0-15.0) d/dL Hct 28.4 L (39.6-50.0) % MCH 26.8 L (27.0-32.0) pg MCHC 31.7 L (32.0-37.0) d/dL MPV 9.4 L (9.5-12.2) FL Neutrophils # 8.57 H (1.80-7.70) X 10*3/uL Sodium (137-145) mmol/L Carbon Dioxide (22-30) mmol/L Glucose (74-99) mg/dL POC Glucose (mg/dL) 166 H 150 H (70-110) mg/dL Hemoglobin A1c (<=6.0) % 02/21/23 02/21/23 02/21/23 Range/Units 06:05 06:05 06:05 WBC (4.50-10.00) X 10*3/uL RBC 3.24 L (4.40-5.60) X 10*6/uL Hgb 8.9 L (12.0-15.0) d/dL Hct 26.9 L (39.6-50.0) % MCH (27.0-32.0) pg MCHC (32.0-37.0) d/dL MPV 9.2 L (9.5-12.2) FL Neutrophils # (1.80-7.70) X 10*3/uL Sodium 133 L (137-145) mmol/L Carbon Dioxide 21 L (22-30) mmol/L Glucose 145 H (74-99) mg/dL POC Glucose (mg/dL) (70-110) mg/dL Hemoglobin A1c 9.0 H (<=6.0) % 02/21/23 02/21/23 Range/Units 06:18 11:49 WBC (4.50-10.00) X 10*3/uL RBC (4.40-5.60) X 10*6/uL Hgb (12.0-15.0) d/dL Hct (39.6-50.0) % MCH (27.0-32.0) pg MCHC (32.0-37.0) d/dL MPV (9.5-12.2) FL Neutrophils # (1.80-7.70) X 10*3/uL Sodium (137-145) mmol/L Carbon Dioxide (22-30) mmol/L Glucose (74-99) mg/dL POC Glucose (mg/dL) 157 H 134 H (70-110) mg/dL Hemoglobin A1c (<=6.0) % Microbiology - Last 24 Hours (Table) 02/19/23 17:41 Gram Stain - Preliminary Toe - Right Second Wound Culture - Preliminary Gram Neg Bacilli Assessment and Plan Assessment: Acute right diabetic foot infection with second toe gangrenous changes and osteomyelitis.Failed outpatient antibiotic therapy. Sepsis secondary to above Hyperglycemia with uncontrolled diabetes type 2 Acute kidney injury likely prerenal Lactic acidosis Cataracts Depression History of vaping and marijuana use Plan: Continue with broad-spectrum antibiotic as per ID team Vascular surgery team on the case and planned for surgical debridement Labs and medication were reviewed.. Continue same treatment. Continue with symptomatic treatment. Resume home medication. Monitor labs and vitals. DVT and GI prophylaxis. Further recommendations as per clinical course of the patient DVT prophylaxis: Subcutaneous heparin GI Prophylaxis: Pepcid PT/OT: Pending Prognosis is guarded
[2023-02-21] MEDS: ONDANSETRON 4 MG/2 ML VIAL IVP PRN (15:17)
[2023-02-21 15:21] LABS: Glucose,Whole Blood 106 mg/dL (70-110)
[2023-02-21] MEDS ORDERED: IV FLUID CONTINUATION 1,000 ML IV ONE ×2 (15:21)
[2023-02-21] MEDS ORDERED: LACTATED RINGERS 1,000 ML IV ONE (15:59)
[2023-02-21] MEDS ORDERED: MIDAZOLAM 2 MG/2 ML VIAL ONE (16:07)
[2023-02-21] MEDS ORDERED: ePHEDrine 50 MG/ML 1 ML VIAL ONE (16:07)
[2023-02-21] MEDS ORDERED: LIDOCAINE 2% INJ 20 MG/ML (2 ML VIAL) ONE (16:07)
[2023-02-21] MEDS ORDERED: PROPOFOL 10 MG/ML 20 ML VIAL IV ONE (16:07)
[2023-02-21] MEDS ORDERED: fentaNYL (PF) 50 MCG/ML 2 ML AMP ONE (16:07)
--- NOTE | 2023-02-21 16:13 | P.PN ---
Subjective Progress Note Date: 02/21/23 Principal diagnosis: Diabetic foot infection Patient is a 57 year old male with a past medical history significant for diabetes mellitus, presented to hospital with worsening swelling redness drainage to the right second toe and also involvement of the right big toe has been diagnosed with possible Osteomyelitis with abnormal x-ray on admission to the hospital. On today's evaluation that is 02/21/2023, the patient denies having any fever or any chills, the patient is breathing comfortably, patient pain to the right foot is currently controlled no chest pain or shortness of breath or cough no abdominal pain or diarrhea Objective - Vital Signs Vital signs: Vital Signs Temp 97.5 F L 02/21/23 07:29 Pulse 89 02/21/23 07:29 Resp 20 02/21/23 07:29 BP 103/65 02/21/23 07:29 Pulse Ox 98 02/21/23 07:29 FiO2 Intake & Output 02/20/23 02/21/23 02/21/23 18:59 06:59 18:59 Other: Voiding Method Toilet # Voids 2 2 - Exam GENERAL DESCRIPTION: A middle-age male lying in bed in no distress RESPIRATORY SYSTEM: Unlabored breathing , decreased breath sounds at bases HEART: S1 S2 regular rate and rhythm , ABDOMEN: Soft , no tenderness EXTREMITIES: Right big toe necrotic dorsum with extensive swelling of the right second toe - Labs CBC & Chem 7: 02/21/23 06:05 02/21/23 06:05 Labs: Abnormal Lab Results - Last 24 Hours (Table) 02/20/23 02/20/23 02/20/23 Range/Units 07:26 16:59 20:17 WBC 11.87 H (4.50-10.00) X 10*3/uL RBC 3.36 L (4.40-5.60) X 10*6/uL Hgb 9.0 L (12.0-15.0) d/dL Hct 28.4 L (39.6-50.0) % MCH 26.8 L (27.0-32.0) pg MCHC 31.7 L (32.0-37.0) d/dL MPV 9.4 L (9.5-12.2) FL Neutrophils # 8.57 H (1.80-7.70) X 10*3/uL Sodium (137-145) mmol/L Carbon Dioxide (22-30) mmol/L Glucose (74-99) mg/dL POC Glucose (mg/dL) 166 H 150 H (70-110) mg/dL Hemoglobin A1c (<=6.0) % 02/21/23 02/21/23 02/21/23 Range/Units 06:05 06:05 06:05 WBC (4.50-10.00) X 10*3/uL RBC 3.24 L (4.40-5.60) X 10*6/uL Hgb 8.9 L (12.0-15.0) d/dL Hct 26.9 L (39.6-50.0) % MCH (27.0-32.0) pg MCHC (32.0-37.0) d/dL MPV 9.2 L (9.5-12.2) FL Neutrophils # (1.80-7.70) X 10*3/uL Sodium 133 L (137-145) mmol/L Carbon Dioxide 21 L (22-30) mmol/L Glucose 145 H (74-99) mg/dL POC Glucose (mg/dL) (70-110) mg/dL Hemoglobin A1c 9.0 H (<=6.0) % 02/21/23 02/21/23 Range/Units 06:18 11:49 WBC (4.50-10.00) X 10*3/uL RBC (4.40-5.60) X 10*6/uL Hgb (12.0-15.0) d/dL Hct (39.6-50.0) % MCH (27.0-32.0) pg MCHC (32.0-37.0) d/dL MPV (9.5-12.2) FL Neutrophils # (1.80-7.70) X 10*3/uL Sodium (137-145) mmol/L Carbon Dioxide (22-30) mmol/L Glucose (74-99) mg/dL POC Glucose (mg/dL) 157 H 134 H (70-110) mg/dL Hemoglobin A1c (<=6.0) % Microbiology - Last 24 Hours (Table) 02/19/23 17:41 Gram Stain - Preliminary Toe - Right Second Wound Culture - Preliminary Gram Neg Bacilli Assessment and Plan (1) Osteomyelitis Current Visit: Yes Status: Acute Code(s): M86.9 - OSTEOMYELITIS, UNSPECIFIED SNOMED Code(s): 37822116 (2) Cellulitis Current Visit: No Status: Acute Code(s): L03.90 - CELLULITIS, UNSPECIFIED SNOMED Code(s): 789233232 (3) Diabetic toe ulcer Current Visit: No Status: Acute Code(s): E11.621 - TYPE 2 DIABETES MELLITUS WITH FOOT ULCER; L97.509 - NON-PRESSURE CHRONIC ULCER OTH PRT UNSP FOOT W UNSP SEVERITY SNOMED Code(s): 538671229 Plan: 1patient was in the hospital with extensive right second and first toe diabetic foot infection concerning for wet gangrene and did have bony destruction on the x-ray concerning for osteomyelitis failing outpatient oral clindamycin therapy. 2patient with multiple antibiotic allergies that would limit the number of antibiotics safe to use. 3 patient to continue patient on vancomycin along with cefepime and Flagyl to cover for the gram-negative and anaerobes 4patient has been evaluated by vascular surgery and planning for amputation of the toe and deep culture Dictation was produced using [employer] dictation software. please excuse any grammatical, word or spelling errors. Time with Patient: Less than 30
[2023-02-21] MEDS: COLLAGENASE 250 UNIT/GM OINTMENT 30 GM TUBE TOPICAL SCH (16:27)
[2023-02-21 17:20] LABS: Glucose,Whole Blood 113 mg/dL (70-110)
--- NOTE | 2023-02-21 18:00 | OP ---
OPERATIVE REPORT DATE OF SERVICE : PREOPERATIVE DIAGNOSIS: Wet gangrene of the right foot involving the big toe and second toe with marked cellulitis in the dorsal aspect of the foot. POSTOPERATIVE DIAGNOSIS: Wet gangrene of the right foot involving the big toe and second toe with marked cellulitis in the dorsal aspect of the foot. PROCEDURE PERFORMED: Ray amputation of the right foot at metatarsophalangeal joint of the big toe and second toe. DESCRIPTION OF PROCEDURE: This patient was brought to the operating room. Under general anesthesia, right foot was prepped, and drapes were applied in a sterile manner. A transverse incision was made at the metatarsophalangeal joint on the dorsal aspect, deepened through skin and fat, and tendons were divided until we reached the fascia. The fascia was all necrotic, and a pocket of pus was drained. Then, the incision was extended up on the dorsal aspect of the foot, deepened through skin and fat, and tendons on the dorsal aspect of the big toe and second toe were divided until we reached the metatarsophalangeal joint. There was all necrotic tissue present at the metatarsophalangeal joint involving the fascia and the subcutaneous tissue. All was excised with a sharp knife. Big toe and second toe were removed, which were sent for deep culture. Hemostasis was well controlled using a hand electrocautery and suture ligated the digital vessels. Wound was copiously irrigated with hydrogen peroxide, saline, and Betadine. Santyl cream was used for the wound, and a pressure dressing was applied. Blood loss was about 40 mL. The patient was transferred to recovery room in satisfactory condition. The patient will be nonweightbearing. MMODL / IJN: [id number] /
[2023-02-21 20:55] LABS: Glucose,Whole Blood 183 mg/dL (70-110)
[2023-02-21] MEDS ORDERED: VANCOMYCIN TROUGH DUE 1 EACH MISC MISCELLANE ONE (22:00)
[2023-02-22] MEDS: HYDROmorphone 1 MG/ML 1 ML SYRINGE IVP PRN (00:50)
[2023-02-22] MEDS: HEPARIN SODIUM,PORCINE/PF 5,000 UNIT/0.5 ML SYRINGE SQ SCH ×4 (00:51→23:51)
[2023-02-22] MEDS: VANCOMYCIN 1,500 MG in SODIUM CHLORIDE 0.9% 500 ML 500 ML IVPB SCH ×2 (01:38→11:17)
[2023-02-22] MEDS: CEFEPIME 2 GM in SODIUM CHLORIDE 0.9% 100 ML IVPB SCH ×3 (05:28→21:29)
[2023-02-22] MEDS: SODIUM CHLORIDE 0.9% 1,000 ML IV SCH (05:33)
[2023-02-22 05:55] LABS: Glucose,Whole Blood 152 mg/dL (70-110)
[2023-02-22 06:40] LABS: African American GFR (CKD) 86 (>60 ml/min/1.73 sqM); Non-African American GFR(CKD) 75 (>60 ml/min/1.73 sqM)
[2023-02-22] MEDS: INSULIN ASPART (NovoLOG) 100 UNIT/ML VIAL SQ SCH ×4 (06:51→21:25)
[2023-02-22 07:13] LABS: Glucose,Whole Blood 138 mg/dL (70-110)
[2023-02-22] MEDS: DULoxetine HCL 60 MG CAPSULE.DR PO SCH (07:55)
[2023-02-22] MEDS: metroNIDAZOLE 500 MG TAB PO SCH ×3 (07:55→21:29)
[2023-02-22] MEDS: ATORVASTATIN 10 MG TAB PO SCH (07:55)
[2023-02-22] MEDS: FAMOTIDINE 20 MG TAB PO SCH (07:55)
[2023-02-22] MEDS: lisinopriL 5 MG TAB PO SCH (07:57)
[2023-02-22] MEDS: HYDROmorphone 0.5 MG/0.5 ML SYRINGE IVP PRN ×2 (09:14→21:30)
[2023-02-22] MEDS: ONDANSETRON 4 MG/2 ML VIAL IVP PRN (09:18)
--- NOTE | 2023-02-22 09:33 | PN ---
PROGRESS NOTE This is a 57-year-old diabetic male patient came with wet gangrene of the big toe and second toe. Yesterday, ray amputation of the right foot big toe and second toe. Base of the wound is clean. No discharge noted. We changed the dressing with Santyl cream. Next dressing will be changed on Friday nonweightbearing. The patient is under care of Infectious Disease IV antibiotic. MMODL / IJN: [id number] /
[2023-02-22 11:02] LABS: Glucose,Whole Blood 148 mg/dL (70-110)
[2023-02-22] MEDS: COLLAGENASE 250 UNIT/GM OINTMENT 30 GM TUBE TOPICAL SCH (11:18)
[2023-02-22 16:32] LABS: Glucose,Whole Blood 167 mg/dL (70-110)
--- NOTE | 2023-02-22 17:59 | P.PN ---
Subjective Patient 57-year-old male with a known history of diabetes type 2 [id number], depression and history of vaping and marijuana use presents to ER with complaints of worsening right foot infection. Patient was seen in the ER on 01/31/2023 Menostar antibiotics clindamycin. Patient did take his medications with infectious getting worse which made him come to the ER. Patient is unsure he has been taking his medications correctly and states that he does have cataracts. Wound is draining purulent discharge. Otherwise denies any fever or chills. No cough or sputum problem. No chest pain. No leg swelling. X-ray of the foot showed soft tissue swelling of the second toe with osseous destruction of the second distal phalanx and half of the middle phalanx. Findings in keeping with osteomyelitis. A second area of lucency requesting second proximal phalangeal base could represent a subacute fracture second site of infection. Laboratory data WBC 12.9 hemoglobin 10.4 and platelets 356. Sodium 127 potassium 5.0 chloride 96 bicarb is 19 BUN 25 and creatinine 1.58 and blood sugar is 473. Lactic acid 2.4 CRP 17.1. Liver enzymes are not elevated. 02/21/2023 patient with right foot infection with some gangrenous changes that failed outpatient therapy Patient planned to undergo debridement with vascular surgery to him, I talked to the patient this morning and he AGREEABLE to this plan and he is willing to undergo debridement. Remains on broad-spectrum antibiotics, IV vancomycin, cefepime and Flagyl and normal saline 75 mL/h 02/22/2023 Patient is status post amputation of his diabetic foot ulcer. Culture is growing Klebsiella oxytoca, this could not be covered with broad- spectrum antibiotic with IV vancomycin, cefepime and Flagyl ID team on the case. Continue with normal saline at 75 mL/h, he has stable borderline blood pressure with systolic 90s to 100 but patient was asymptomatic. Objective - Vital Signs Vital signs: Vital Signs Temp 98.3 F 02/22/23 13:20 Pulse 78 02/22/23 15:36 Resp 15 02/22/23 13:20 BP 95/60 02/22/23 15:36 Pulse Ox 97 02/22/23 15:36 FiO2 Intake & Output 02/21/23 02/22/23 02/22/23 18:59 06:59 18:59 Intake Total 800 Output Total 40 500 Balance 760 -500 Weight 90.718 kg Intake: IV 800 Output: Urine 500 Estimated Blood Loss 40 Other: Voiding Method Urinal # Voids 3 1 - Exam GENERAL: The patient is alert and oriented x3, not in any acute distress. Well developed, well nourished. HEENT: Pupils are round and equally reacting to light. EOMI. No scleral icterus. No conjunctival pallor. Normocephalic, atraumatic. No pharyngeal erythema. No thyromegaly. CARDIOVASCULAR: S1 and S2 present. No murmurs, rubs, or gallops. PULMONARY: Chest is clear to auscultation, no wheezing , no crackles. ABDOMEN: Soft, nontender, nondistended, normoactive bowel sounds. No palpable organomegaly. MUSCULOSKELETAL: No joint swelling or deformity. -EXTREMITIES: No cyanosis, clubbing, or pedal edema. Right diabetic foot infection of the big toe with dressing in place NEUROLOGICAL: Gross neurological examination did not reveal any focal deficits. SKIN: No rashes. no petechiae. - Labs CBC & Chem 7: 02/21/23 06:05 02/22/23 05:50 Labs: Abnormal Lab Results - Last 24 Hours (Table) 02/21/23 02/22/23 02/22/23 Range/Units 20:49 05:54 07:12 POC Glucose (mg/dL) 183 H 152 H 138 H (70-110) mg/dL 02/22/23 02/22/23 Range/Units 11:00 16:30 POC Glucose (mg/dL) 148 H 167 H (70-110) mg/dL Microbiology - Last 24 Hours (Table) 02/19/23 17:41 Gram Stain - Final Toe - Right Second Wound Culture - Final Klebsiella oxytoca 02/19/23 17:41 Blood Culture - Preliminary Blood 02/19/23 17:41 Blood Culture - Preliminary Blood Assessment and Plan Assessment: Acute right diabetic foot infection with second toe gangrenous changes and osteomyelitis.Failed outpatient antibiotic therapy. Sepsis secondary to above Hyperglycemia with uncontrolled diabetes type 2 Acute kidney injury likely prerenal Lactic acidosis Cataracts Depression History of vaping and marijuana use Plan: Continue with broad-spectrum antibiotic as per ID team Vascular surgery team on the case and planned for surgical debridement Labs and medication were reviewed.. Continue same treatment. Continue with symptomatic treatment. Resume home medication. Monitor labs and vitals. DVT and GI prophylaxis. Further recommendations as per clinical course of the patient DVT prophylaxis: Subcutaneous heparin GI Prophylaxis: Pepcid PT/OT: Pending Prognosis is guarded
[2023-02-22 20:03] LABS: Glucose,Whole Blood 151 mg/dL (70-110)
[2023-02-23] MEDS: SODIUM CHLORIDE 0.9% 1,000 ML IV SCH ×3 (00:31→21:45)
[2023-02-23] MEDS: VANCOMYCIN 1,500 MG in SODIUM CHLORIDE 0.9% 500 ML 500 ML IVPB SCH (00:31)
[2023-02-23] MEDS: CEFEPIME 2 GM in SODIUM CHLORIDE 0.9% 100 ML IVPB SCH ×3 (04:01→21:36)
[2023-02-23 06:17] LABS: Glucose,Whole Blood 163 mg/dL (70-110)
[2023-02-23] MEDS: INSULIN ASPART (NovoLOG) 100 UNIT/ML VIAL SQ SCH ×4 (06:53→21:39)
--- NOTE | 2023-02-23 08:16 | P.PN ---
Subjective Progress Note Date: 02/22/23 Principal diagnosis: Diabetic foot infection Patient is a 57 year old male with a past medical history significant for diabetes mellitus, presented to hospital with worsening swelling redness drainage to the right second toe and also involvement of the right big toe has been diagnosed with possible Osteomyelitis with abnormal x-ray on admission to the hospital.Patient is status post amputation of the right foot at metatarsophalangeal joint of the right big toe and second toe completed on 02/21/2023. On today's evaluation that is 02/22/2023 patient denies having any fever or any chills pain to the right foot is currently controlled patient denies having any chest pain or shortness of breath or cough no nausea vomiting no abdominal pain or diarrhea Objective - Vital Signs Vital signs: Vital Signs Temp 98.3 F 02/22/23 13:20 Pulse 78 02/22/23 13:20 Resp 15 02/22/23 13:20 BP 84/58 02/22/23 13:20 Pulse Ox 98 02/22/23 13:20 FiO2 Intake & Output 02/21/23 02/22/23 02/22/23 18:59 06:59 18:59 Intake Total 800 Output Total 40 500 Balance 760 -500 Weight 90.718 kg Intake: IV 800 Output: Urine 500 Estimated Blood Loss 40 Other: Voiding Method Urinal # Voids 3 1 - Exam GENERAL DESCRIPTION: A middle-age male lying in bed in no distress RESPIRATORY SYSTEM: Unlabored breathing , decreased breath sounds at bases HEART: S1 S2 regular rate and rhythm , ABDOMEN: Soft , no tenderness EXTREMITIES: Right big and second toe amputation site wound is currently dressed no drainage on the dressing - Labs CBC & Chem 7: 02/21/23 06:05 02/22/23 05:50 Labs: Abnormal Lab Results - Last 24 Hours (Table) 02/21/23 02/21/23 02/22/23 Range/Units 17:17 20:49 05:54 POC Glucose (mg/dL) 113 H 183 H 152 H (70-110) mg/dL 02/22/23 02/22/23 Range/Units 07:12 11:00 POC Glucose (mg/dL) 138 H 148 H (70-110) mg/dL Microbiology - Last 24 Hours (Table) 02/19/23 17:41 Gram Stain - Final Toe - Right Second Wound Culture - Final Klebsiella oxytoca 02/19/23 17:41 Blood Culture - Preliminary Blood 02/19/23 17:41 Blood Culture - Preliminary Blood Assessment and Plan (1) Osteomyelitis Current Visit: Yes Status: Acute Code(s): M86.9 - OSTEOMYELITIS, UNSPECIFIED SNOMED Code(s): 44665022 (2) Cellulitis Current Visit: No Status: Acute Code(s): L03.90 - CELLULITIS, UNSPECIFIED SNOMED Code(s): 288893991 (3) Diabetic toe ulcer Current Visit: No Status: Acute Code(s): E11.621 - TYPE 2 DIABETES MELLITUS WITH FOOT ULCER; L97.509 - NON-PRESSURE CHRONIC ULCER OTH PRT UNSP FOOT W UNSP SEVERITY SNOMED Code(s): 999501119 Plan: 1patient was in the hospital with extensive right second and first toe diabetic foot infection concerning for wet gangrene and did have bony destruction on the x-ray concerning for osteomyelitis failing outpatient oral clindamycin therapy. 2patient with multiple antibiotic allergies that would limit the number of antibiotics safe to use. 3 patient is status post amputation of the right first and second toe and deep culture which are currently pending 4- patient to continue patient on vancomycin along with cefepime and Flagyl while waiting for the cultures to finalize Dictation was produced using [employer] dictation software. please excuse any grammatical, word or spelling errors. Time with Patient: Less than 30
[2023-02-23] MEDS: lisinopriL 5 MG TAB PO SCH (08:46)
[2023-02-23] MEDS: metroNIDAZOLE 500 MG TAB PO SCH ×3 (08:49→21:38)
[2023-02-23] MEDS: HEPARIN SODIUM,PORCINE/PF 5,000 UNIT/0.5 ML SYRINGE SQ SCH ×2 (08:49→17:48)
[2023-02-23] MEDS: FAMOTIDINE 20 MG TAB PO SCH (08:49)
[2023-02-23] MEDS: DULoxetine HCL 60 MG CAPSULE.DR PO SCH (08:49)
[2023-02-23] MEDS: ATORVASTATIN 10 MG TAB PO SCH (08:49)
[2023-02-23] MEDS: COLLAGENASE 250 UNIT/GM OINTMENT 30 GM TUBE TOPICAL SCH (09:16)
[2023-02-23 10:09] LABS: African American GFR (CKD) 82 (>60 ml/min/1.73 sqM); Anion Gap 5 mmol/L; Blood Urea Nitrogen 17 mg/dL (9-20); Calcium 8.1 mg/dL (8.4-10.2); Carbon Dioxide 22 mmol/L (22-30); Chloride 105 mmol/L (98-107); Glucose 163 mg/dL (74-99); Non-African American GFR(CKD) 71 (>60 ml/min/1.73 sqM); Potassium 4.6 mmol/L (3.5-5.1); Sodium 132 mmol/L (137-145)
[2023-02-23 10:33] LABS: Basophils % (A) 0 %; Eosinophils # (A) 0.3 k/uL (0-0.7); Eosinophils % (A) 5 %; HCT 27.6 % (39.0-53.0); HGB 9.1 gm/dL (13.0-17.5); Hypochromasia Slight; Lymphocytes # (A) 1.4 k/uL (1.0-4.8); Lymphocytes % (A) 21 %; MCH 28.2 pg (25.0-35.0); MCHC 32.8 g/dL (31.0-37.0); Mean Platelet Volume 7.4; Monocytes # (A) 0.3 k/uL (0-1.0); Monocytes % (A) 5 %; Neutrophils # (A) 4.4 k/uL (1.3-7.7); Neutrophils % (A) 66 %; Platelet Count 265 k/uL (150-450); RBC 3.21 m/uL (4.30-5.90); RDW 12.9 % (11.5-15.5); WBC 6.7 k/uL (3.8-10.6)
[2023-02-23] MEDS ORDERED: LORazepam 2 MG/ML INJ ONE (11:57)
[2023-02-23] MEDS ORDERED: LORazepam 2 MG/ML INJ IV STA (11:57)
[2023-02-23] MEDS ORDERED: LORazepam 2 MG/ML INJ IV PRN (15:14)
--- NOTE | 2023-02-23 15:18 | P.PN ---
Subjective Patient 57-year-old male with a known history of diabetes type 2 [id number], depression and history of vaping and marijuana use presents to ER with complaints of worsening right foot infection. Patient was seen in the ER on 01/31/2023 Menostar antibiotics clindamycin. Patient did take his medications with infectious getting worse which made him come to the ER. Patient is unsure he has been taking his medications correctly and states that he does have cataracts. Wound is draining purulent discharge. Otherwise denies any fever or chills. No cough or sputum problem. No chest pain. No leg swelling. X-ray of the foot showed soft tissue swelling of the second toe with osseous destruction of the second distal phalanx and half of the middle phalanx. Findings in keeping with osteomyelitis. A second area of lucency requesting second proximal phalangeal base could represent a subacute fracture second site of infection. Laboratory data WBC 12.9 hemoglobin 10.4 and platelets 356. Sodium 127 potassium 5.0 chloride 96 bicarb is 19 BUN 25 and creatinine 1.58 and blood sugar is 473. Lactic acid 2.4 CRP 17.1. Liver enzymes are not elevated. 02/21/2023 patient with right foot infection with some gangrenous changes that failed outpatient therapy Patient planned to undergo debridement with vascular surgery to him, I talked to the patient this morning and he AGREEABLE to this plan and he is willing to undergo debridement. Remains on broad-spectrum antibiotics, IV vancomycin, cefepime and Flagyl and normal saline 75 mL/h 02/22/2023 Patient is status post amputation of his diabetic foot ulcer. Culture is growing Klebsiella oxytoca, this could not be covered with broad- spectrum antibiotic with IV vancomycin, cefepime and Flagyl ID team on the case. Continue with normal saline at 75 mL/h, he has stable borderline blood pressure with systolic 90s to 100 but patient was asymptomatic. 02/23/2023 Patient status post debridement of his right foot cellulitis and wound culture growing Klebsiella which is covered with antibiotic per ID team, currently on vancomycin and cefepime and Flagyl. Patient today got agitated with the staff and he was very aggressive maintenance risks to self and staff there for acute event 1 time dose of 1 mg help to come down, after that he told the staff he feels very depressed and he wants to commit suicide. Sitter was placed at bedside and suicidal precautions was initiated and with psych consult. Discussed with the staff and bedside as patient cannot leave AMA otherwise needs to be petitioned and she verbalized understanding and acceptance. Objective - Vital Signs Vital signs: Vital Signs Temp 97.8 F 02/23/23 06:49 Pulse 87 02/23/23 06:49 Resp 16 02/23/23 10:15 BP 100/67 02/23/23 06:49 Pulse Ox 98 02/23/23 06:49 FiO2 Intake & Output 02/22/23 02/23/23 02/23/23 18:59 06:59 18:59 Intake Total 200 Output Total 1300 400 Balance -1300 -200 Intake: Oral 200 Output: Urine 1300 400 Other: Voiding Method Urinal # Voids 3 - Exam GENERAL: The patient is alert and oriented x3, not in any acute distress. Well developed, well nourished. HEENT: Pupils are round and equally reacting to light. EOMI. No scleral icterus. No conjunctival pallor. Normocephalic, atraumatic. No pharyngeal erythema. No thyromegaly. CARDIOVASCULAR: S1 and S2 present. No murmurs, rubs, or gallops. PULMONARY: Chest is clear to auscultation, no wheezing , no crackles. ABDOMEN: Soft, nontender, nondistended, normoactive bowel sounds. No palpable organomegaly. MUSCULOSKELETAL: No joint swelling or deformity. -EXTREMITIES: No cyanosis, clubbing, or pedal edema. Right diabetic foot infection of the big toe with dressing in place NEUROLOGICAL: Gross neurological examination did not reveal any focal deficits. SKIN: No rashes. no petechiae. - Labs CBC & Chem 7: 02/23/23 09:30 02/23/23 09:30 Labs: Abnormal Lab Results - Last 24 Hours (Table) 02/22/23 02/22/23 02/23/23 Range/Units 16:30 19:56 06:15 RBC (4.30-5.90) m/uL Hgb (13.0-17.5) gm/dL Hct (39.0-53.0) % Sodium (137-145) mmol/L Glucose (74-99) mg/dL POC Glucose (mg/dL) 167 H 151 H 163 H (70-110) mg/dL Calcium (8.4-10.2) mg/dL 02/23/23 02/23/23 Range/Units 09:30 09:30 RBC 3.21 L (4.30-5.90) m/uL Hgb 9.1 L (13.0-17.5) gm/dL Hct 27.6 L (39.0-53.0) % Sodium 132 L (137-145) mmol/L Glucose 163 H (74-99) mg/dL POC Glucose (mg/dL) (70-110) mg/dL Calcium 8.1 L (8.4-10.2) mg/dL Microbiology - Last 24 Hours (Table) 02/19/23 17:41 Anaerobic Culture - Final Foot - Right 02/21/23 16:30 Tissue Culture - Preliminary Toe - Right First 02/19/23 17:41 Blood Culture - Preliminary Blood 02/19/23 17:41 Blood Culture - Preliminary Blood Assessment and Plan Assessment: Acute right diabetic foot infection with second toe gangrenous changes and osteomyelitis.Failed outpatient antibiotic therapy. Sepsis secondary to above Depression with suicidal ideation Hyperglycemia with uncontrolled diabetes type 2 Acute kidney injury likely prerenal Lactic acidosis Cataracts Depression History of vaping and marijuana use Plan: Continue with broad-spectrum antibiotic as per ID team Vascular surgery team on the case and planned for surgical debridement Suicidal precautions with psych consult Labs and medication were reviewed.. Continue same treatment. Continue with symptomatic treatment. Resume home medication. Monitor labs and vitals. DVT and GI prophylaxis. Further recommendations as per clinical course of the patient DVT prophylaxis: Subcutaneous heparin GI Prophylaxis: Pepcid PT/OT: Pending Prognosis is guarded
--- NOTE | 2023-02-23 16:35 | P.PN ---
Subjective Progress Note Date: 02/23/23 Principal diagnosis: Diabetic foot infection Patient is a 57 year old male with a past medical history significant for diabetes mellitus, presented to hospital with worsening swelling redness drainage to the right second toe and also involvement of the right big toe has been diagnosed with possible Osteomyelitis with abnormal x-ray on admission to the hospital.Patient is status post amputation of the right foot at metatarsophalangeal joint of the right big toe and second toe completed on 02/21/2023. On today's evaluation that is 02/23/2023 patient remains to be afebrile, the patient pain to the right foot is currently controlled, patient denies chest pain or shortness of breath or cough no nausea vomiting no abdominal pain or diarrhea Objective - Vital Signs Vital signs: Vital Signs Temp 97.8 F 02/23/23 06:49 Pulse 87 02/23/23 06:49 Resp 16 02/23/23 10:15 BP 100/67 02/23/23 06:49 Pulse Ox 98 02/23/23 06:49 FiO2 Intake & Output 02/22/23 02/23/23 02/23/23 18:59 06:59 18:59 Intake Total 200 Output Total 1300 400 Balance -1300 -200 Intake: Oral 200 Output: Urine 1300 400 Other: Voiding Method Urinal # Voids 3 - Exam GENERAL DESCRIPTION: A middle-age male lying in bed in no distress RESPIRATORY SYSTEM: Unlabored breathing , decreased breath sounds at bases HEART: S1 S2 regular rate and rhythm , ABDOMEN: Soft , no tenderness EXTREMITIES: Right big and second toe amputation site wound is currently dressed no drainage on the dressing - Labs CBC & Chem 7: 02/23/23 09:30 02/23/23 09:30 Labs: Abnormal Lab Results - Last 24 Hours (Table) 02/22/23 02/22/23 02/23/23 Range/Units 16:30 19:56 06:15 RBC (4.30-5.90) m/uL Hgb (13.0-17.5) gm/dL Hct (39.0-53.0) % Sodium (137-145) mmol/L Glucose (74-99) mg/dL POC Glucose (mg/dL) 167 H 151 H 163 H (70-110) mg/dL Calcium (8.4-10.2) mg/dL 02/23/23 02/23/23 Range/Units 09:30 09:30 RBC 3.21 L (4.30-5.90) m/uL Hgb 9.1 L (13.0-17.5) gm/dL Hct 27.6 L (39.0-53.0) % Sodium 132 L (137-145) mmol/L Glucose 163 H (74-99) mg/dL POC Glucose (mg/dL) (70-110) mg/dL Calcium 8.1 L (8.4-10.2) mg/dL Microbiology - Last 24 Hours (Table) 02/19/23 17:41 Anaerobic Culture - Final Foot - Right 02/21/23 16:30 Tissue Culture - Preliminary Toe - Right First 02/19/23 17:41 Blood Culture - Preliminary Blood 02/19/23 17:41 Blood Culture - Preliminary Blood Assessment and Plan (1) Osteomyelitis Current Visit: Yes Status: Acute Code(s): M86.9 - OSTEOMYELITIS, UNSPECIFIED SNOMED Code(s): 51855260 (2) Cellulitis Current Visit: No Status: Acute Code(s): L03.90 - CELLULITIS, UNSPECIFIED SNOMED Code(s): 895530991 (3) Diabetic toe ulcer Current Visit: No Status: Acute Code(s): E11.621 - TYPE 2 DIABETES MELLITUS WITH FOOT ULCER; L97.509 - NON-PRESSURE CHRONIC ULCER OTH PRT UNSP FOOT W UNSP SEVERITY SNOMED Code(s): 040491736 Plan: 1patient was in the hospital with extensive right second and first toe diabetic foot infection concerning for wet gangrene and did have bony destruction on the x-ray concerning for osteomyelitis failing outpatient oral clindamycin therapy. 2patient with multiple antibiotic allergies that would limit the number of antibiotics safe to use. 3 patient is status post amputation of the right first and second toe and deep culture which are currently pending, superficial culture did grew Klebsiella that is a sensitive pathogen 4- patient to continue with cefepime and Flagyl however vancomycin has been discontinued Dictation was produced using [employer] software. please excuse any grammatical, word or spelling errors. Time with Patient: Less than 30
[2023-02-23 16:41] LABS: Glucose,Whole Blood 164 mg/dL (70-110)
--- NOTE | 2023-02-23 16:50 | P.PN ---
Progress Note - Text Patient was seen today this patient came with the wet gangrene of the right foot big toe and second toe patient went for ray amputation today we have changed the dressing we been using Santyl cream base of the wound is clean no discharge noted we will continue with Santyl cream and patient is under care of infectious disease for IV antibiotic
[2023-02-23] MEDS: HYDROmorphone 1 MG/ML 1 ML SYRINGE IVP PRN ×2 (18:10→21:37)
[2023-02-23 20:19] LABS: Glucose,Whole Blood 115 mg/dL (70-110)
[2023-02-24] MEDS: CEFEPIME 2 GM in SODIUM CHLORIDE 0.9% 100 ML IVPB SCH (04:12)
[2023-02-24] MEDS: HEPARIN SODIUM,PORCINE/PF 5,000 UNIT/0.5 ML SYRINGE SQ SCH ×3 (04:15→15:19)
[2023-02-24 06:12] LABS: Glucose,Whole Blood 177 mg/dL (70-110)
[2023-02-24] MEDS: INSULIN ASPART (NovoLOG) 100 UNIT/ML VIAL SQ SCH ×4 (06:48→21:21)
[2023-02-24 07:02] LABS: African American GFR (CKD) >90 (>60 ml/min/1.73 sqM); Non-African American GFR(CKD) 78 (>60 ml/min/1.73 sqM)
[2023-02-24] MEDS: FAMOTIDINE 20 MG TAB PO SCH (08:04)
[2023-02-24] MEDS: DULoxetine HCL 60 MG CAPSULE.DR PO SCH (08:04)
[2023-02-24] MEDS: metroNIDAZOLE 500 MG TAB PO SCH ×3 (08:05→21:21)
[2023-02-24] MEDS: ATORVASTATIN 10 MG TAB PO SCH (08:05)
[2023-02-24] MEDS: lisinopriL 5 MG TAB PO SCH (08:05)
[2023-02-24] MEDS: COLLAGENASE 250 UNIT/GM OINTMENT 30 GM TUBE TOPICAL SCH (08:10)
[2023-02-24] MEDS: ONDANSETRON 4 MG/2 ML VIAL IVP PRN (10:58)
[2023-02-24 11:40] LABS: Glucose,Whole Blood 309 mg/dL (70-110)
[2023-02-24] MEDS ORDERED: VANCOMYCIN IV PER PHARMACY 1 EACH MISC MISCELLANE PRN (13:12)
--- NOTE | 2023-02-24 13:57 | P.PN ---
Subjective Patient 57-year-old male with a known history of diabetes type 2 [id number], depression and history of vaping and marijuana use presents to ER with complaints of worsening right foot infection. Patient was seen in the ER on 01/31/2023 Menostar antibiotics clindamycin. Patient did take his medications with infectious getting worse which made him come to the ER. Patient is unsure he has been taking his medications correctly and states that he does have cataracts. Wound is draining purulent discharge. Otherwise denies any fever or chills. No cough or sputum problem. No chest pain. No leg swelling. X-ray of the foot showed soft tissue swelling of the second toe with osseous destruction of the second distal phalanx and half of the middle phalanx. Findings in keeping with osteomyelitis. A second area of lucency requesting second proximal phalangeal base could represent a subacute fracture second site of infection. Laboratory data WBC 12.9 hemoglobin 10.4 and platelets 356. Sodium 127 potassium 5.0 chloride 96 bicarb is 19 BUN 25 and creatinine 1.58 and blood sugar is 473. Lactic acid 2.4 CRP 17.1. Liver enzymes are not elevated. 02/21/2023 patient with right foot infection with some gangrenous changes that failed outpatient therapy Patient planned to undergo debridement with vascular surgery to him, I talked to the patient this morning and he AGREEABLE to this plan and he is willing to undergo debridement. Remains on broad-spectrum antibiotics, IV vancomycin, cefepime and Flagyl and normal saline 75 mL/h 02/22/2023 Patient is status post amputation of his diabetic foot ulcer. Culture is growing Klebsiella oxytoca, this could not be covered with broad- spectrum antibiotic with IV vancomycin, cefepime and Flagyl ID team on the case. Continue with normal saline at 75 mL/h, he has stable borderline blood pressure with systolic 90s to 100 but patient was asymptomatic. 02/23/2023 Patient status post debridement of his right foot cellulitis and wound culture growing Klebsiella which is covered with antibiotic per ID team, currently on vancomycin and cefepime and Flagyl. Patient today got agitated with the staff and he was very aggressive maintenance risks to self and staff there for acute event 1 time dose of 1 mg help to come down, after that he told the staff he feels very depressed and he wants to commit suicide. Sitter was placed at bedside and suicidal precautions was initiated and with psych consult. Discussed with the staff and bedside as patient cannot leave AMA otherwise needs to be petitioned and she verbalized understanding and acceptance. 02/24/2023 Patient with diabetic foot ulcer and osteomyelitis, and culture is growing many bacteria, see report. Patient currently is covered with vancomycin and ceftriaxone and Flagyl. Also is getting gentle hydration Creatinine stabilizing within the reference range at 1.0. Less than patient got agitated and he was sent some placental comments therefore sitter was placed at bedside and suicidal precautions was placed and I discussed this with psychiatric team, and evaluated the patient This morning his wound looks better and he looks more calm descent he does not have active plantar cath himself but if it happens passively he will not resisted. He think that his best friend is his mom antecubitum his heart and that he has seen in THIS LIFE. Active Medications Generic Name Dose Route Start Last Admin Trade Name Freq PRN Reason Stop Dose Admin Acetaminophen 650 mg 02/19/23 17:49 Acetaminophen Tab 325 Mg Tab PO Q6HR PRN Mild Pain or Fever > 100.5 Atorvastatin Calcium 10 mg 02/20/23 09:00 02/24/23 08:05 Atorvastatin 10 Mg Tab PO 10 mg DAILY ROSE Administration Collagenase 1 applic 02/21/23 14:15 02/24/23 08:10 Collagenase 250 Unit/Gm Ointment 30 Gm Tube TOPICAL 1 applic DAILY ROSE Administration Protocol Duloxetine HCl 120 mg 02/20/23 15:30 02/24/23 08:04 Duloxetine Hcl 60 Mg Capsule.Dr PO 120 mg DAILY ROSE Administration Famotidine 20 mg 02/21/23 09:00 02/24/23 08:04 Famotidine 20 Mg Tab PO 20 mg DAILY ROSE Administration Heparin Sodium (Porcine) 5,000 unit 02/21/23 08:00 02/24/23 08:05 Heparin Sodium,Porcine/Pf 5,000 Unit/0.5 Ml Syringe SQ 5,000 unit Q8HR ROSE Administration Hydromorphone HCl 1 mg 02/19/23 17:49 02/23/23 21:37 Hydromorphone 1 Mg/Ml 1 Ml Syringe IVP 1 mg Q3HR PRN Administration Severe Pain (Scale 7 to 10) Hydromorphone HCl 0.5 mg 02/19/23 17:49 02/22/23 21:30 Hydromorphone 0.5 Mg/0.5 Ml Syringe IVP 0.5 mg Q3HR PRN Administration Moderate Pain (Scale 4 to 6) Sodium Chloride 1,000 mls @ 75 mls/hr 02/21/23 01:45 02/23/23 21:45 Saline 0.9% IV Not Given .[id number] [facility] Ceftriaxone Sodium 2 gm/ 50 mls @ 100 mls/hr 02/24/23 13:30 Sodium Chloride IVPB Q24HR [facility] Protocol Vancomycin HCl 1,500 mg/ 500 mls @ 167 mls/hr 02/24/23 13:30 Sodium Chloride IVPB Q12HR@0000,1200 [facility] Ibuprofen 400 mg 02/19/23 17:49 02/20/23 08:17 Ibuprofen 400 Mg Tab PO 400 mg Q6HR PRN Administration Mild Pain or Fever > 100.5 Indomethacin 50 mg 02/20/23 15:15 Indomethacin 25 Mg Cap PO Q8H PRN Pain Insulin Aspart 0 unit 02/19/23 22:37 02/24/23 11:45 Insulin Aspart (Novolog) 100 Unit/Ml Vial SQ 8 unit ACHS [facility] Administration Protocol Lisinopril 5 mg 02/20/23 15:30 02/24/23 08:05 Lisinopril 5 Mg Tab PO 5 mg DAILY [facility] Administration Lorazepam 1 mg 02/23/23 15:14 Lorazepam 2 Mg/Ml Inj IV BID PRN Agitation or Acute Anxiety Metronidazole 500 mg 02/20/23 16:00 02/24/23 08:05 Metronidazole 500 Mg Tab PO 500 mg TID [facility] Administration Protocol Naloxone HCl 0.2 mg 02/19/23 17:49 Naloxone 0.4 Mg/Ml 1 Ml Vial IV Q2M PRN Opioid Reversal Ondansetron HCl 4 mg 02/19/23 17:49 02/24/23 10:58 Ondansetron 4 Mg/2 Ml Vial IVP 4 mg Q8HR PRN Administration Nausea And Vomiting Objective - Vital Signs Vital signs: Vital Signs Temp 97.7 F 02/24/23 07:49 Pulse 78 02/24/23 08:00 Resp 18 02/24/23 08:00 BP 112/74 02/24/23 07:49 Pulse Ox 99 02/24/23 07:49 FiO2 Intake & Output 02/23/23 02/24/23 02/24/23 18:59 06:59 18:59 Intake Total 500 Output Total 1999 Balance -1500 -710 Intake: Oral 500 Output: Urine 1999 Other: Voiding Method Urinal Urinal # Voids 2 - Exam GENERAL: The patient is alert and oriented x3, not in any acute distress. Well developed, well nourished. HEENT: Pupils are round and equally reacting to light. EOMI. No scleral icterus. No conjunctival pallor. Normocephalic, atraumatic. No pharyngeal erythema. No thyromegaly. CARDIOVASCULAR: S1 and S2 present. No murmurs, rubs, or gallops. PULMONARY: Chest is clear to auscultation, no wheezing , no crackles. ABDOMEN: Soft, nontender, nondistended, normoactive bowel sounds. No palpable organomegaly. MUSCULOSKELETAL: No joint swelling or deformity. -EXTREMITIES: No cyanosis, clubbing, or pedal edema. Right diabetic foot infection of the big toe with dressing in place NEUROLOGICAL: Gross neurological examination did not reveal any focal deficits. SKIN: No rashes. no petechiae. - Labs CBC & Chem 7: 02/23/23 09:30 02/24/23 06:29 Labs: Abnormal Lab Results - Last 24 Hours (Table) 02/23/23 02/23/23 02/24/23 Range/Units 16:40 20:14 06:10 POC Glucose (mg/dL) 164 H 115 H 177 H (70-110) mg/dL 02/24/23 Range/Units 11:36 POC Glucose (mg/dL) 309 H (70-110) mg/dL Microbiology - Last 24 Hours (Table) 02/19/23 17:41 Blood Culture - Preliminary Blood 02/19/23 17:41 Blood Culture - Preliminary Blood 02/21/23 16:30 Gram Stain - Preliminary Toe - Right First Tissue Culture - Preliminary Klebsiella oxytoca Enterobacter cloacae Alpha Hemolytic Streptococcus Group D Enterococcus 02/19/23 17:41 Anaerobic Culture - Final Foot - Right Assessment and Plan Assessment: Acute right diabetic foot infection with second toe gangrenous changes and osteomyelitis.Failed outpatient antibiotic therapy. Sepsis secondary to above Depression with suicidal ideation Hyperglycemia with uncontrolled diabetes type 2 Acute kidney injury likely prerenal Lactic acidosis Cataracts Depression History of vaping and marijuana use Plan: Continue with broad-spectrum antibiotic as per ID team Vascular surgery consult to evaluate for possible debridement Vascular surgery team on the case and planned for surgical debridement Suicidal precautions with psych consult Labs and medication were reviewed.. Continue same treatment. Continue with symptomatic treatment. Resume home medication. Monitor labs and vitals. DVT and GI prophylaxis. Further recommendations as per clinical course of the p atient DVT prophylaxis: Subcutaneous heparin GI Prophylaxis: Pepcid PT/OT: Pending Prognosis is guarded
--- NOTE | 2023-02-24 14:09 | P.CN ---
Psychiatric Consult - . Consult date: 02/24/23 Consult:: 02/24/23 14:09 IDENTIFYING DATA: This patient is a single, unemployed, 57-year-old male significant history of diabetes type 2, depression, and cannabis use who presented to our hospital on 02/20/2023 for worsening foot infection. HISTORY OF PRESENT ILLNESS: The patient presented to the hospital on 02/20/2023 with a chief complaint of worsening infection on his right foot. The patient was also seen in the emergency Department on 01/31/2023 and started on antibiotics. Since then, the patient has been having worsening infection and was subsequently admitted to the medical floor. On 02/23/2023, the patient had an episode of agitation and endorsed suicidal ideation. Psychiatry was consulted for evaluation of the patient's agitation and suicidal ideation. Upon evaluation by this provider, the patient reports that he is remorseful for his actions. He is apologetic for saying vile comments toward staff. He does report significant symptoms of depression has been ongoing even prior to admission to this hospital. He reports symptoms of anhedonia, low mood, low motivation, and crying episodes. Furthermore, the patient does report that he has been "always suicidal." Despite this, the patient denies any prior attempts at suicide. He is currently not reporting any intention or plan. He reports no homicidal ideation, intention, and/or plan. Regresses general stressors, the patient identifies financial stressors as he expresses one of his biggest problems is his inability to maintain employment. The patient does not provide any significant history of bipolar disorder. He denies any previous manic episodes and reports no grandiosity, increased goal- directed activity, or periods of excessive energy. The patient reports that he has had a difficult operating. He reports that being dominguez he is always felt that he has been on misunderstood. The patient provides a significant history of cluster B personality traits including low self-esteem, trust issues, and episodic episodes of dysphoria. The patient reports no significant history of psychosis. He denies any auditory or visual hallucinations. He reports no paranoia or other delusions. PAST PSYCHIATRIC HISTORY: Patient has a history of depression. The patient recalls being previously prescribed Lexapro and is currently on a regimen of Cymbalta. Patient denies any previous psychiatric hospitalizations. Patient denies any psychiatric outpatient follow-up. Patient denies any history of suicide attempts in the past. PAST MEDICAL HISTORY: Past Medical History: Diabetes Mellitus Additional Past Medical History / Comment(s): cataracts History of Any Multi-Drug Resistant Organisms: None Reported Past Surgical History: Adenoidectomy Past Psychological History: Depression Smoking Status: Vaper Past Alcohol Use History: Occasional Past Drug Use History: Marijuana ALLERGIES: Allergies Allergy/AdvReac Type Severity Reaction Status Date / Time Penicillins Allergy Rash/Hives Verified 02/19/23 18:19 Sulfa (Sulfonamide Allergy Rash/Hives Verified 02/19/23 18:19 Antibiotics) CHEMICAL DEPENDENCY HISTORY: The patient does admit to daily and heavy marijuana use. He reports occasional alcohol use. He also uses a vape daily. No illicit drug use reported. FAMILY PSYCHIATRIC/SUBSTANCE USE HISTORY: Patient reports maternal grandmother had mental health issues. SOCIAL HISTORY: Patient was born and raised in [place], [place]. He is currently unemployed. He is single, never , and has no children. MENTAL STATUS EXAM: General Appearance: Patient appears to be stated age is alert, pleasant, and cooperative. Patient appears to have fair hygiene and grooming wearing hospital gown with fair eye contact. Behavior: Patient is calmly lying in bed without any agitated behavior. Speech: Patient's speech is fluent and nonpressured. Mood/Affect: Patient reports their mood is "depressed", affect is congruent and at times tearful. Suicidality/Homicidality: Patient reports chronic suicidal ideation however no intention or plan. Denies any current homicidal or suicidal ideation, intention,/. Perceptions: Patient denies any visual hallucinations and denies any auditory hallucinations Though content/process: There is no evidence of any delusional thought content and thought process is linear and goal-directed. Memory and concentration: AOX3, grossly intact for the purposes of this session. Can spell "WORLD" backwards Judgment and insight: Fair IMPRESSIONS: Major depressive disorder Cluster B personality disorder Cannabis use disorder Acute right diabetic foot infection with second toe gangrenous changes and osteomyelitis.Failed outpatient antibiotic therapy. Sepsis secondary to above Depression with suicidal ideation Hyperglycemia with uncontrolled diabetes type 2 Acute kidney injury likely prerenal Lactic acidosis Cataracts PLAN: -At this time patient DOES NOT meet criteria for inpatient psychiatric admission. The patient is not presenting with imminent risk of harm to self or others. -Approximately 25 minutes were spent providing the patient with reflective listening and supportive psychotherapy. -Patient was counseled at length on abstaining from marijuana -Would recommend the following medication changes/additions: We will decrease Cymbalta to 90 mg by mouth daily. Concerns for activation contributing to irritability. -Discontinue one-to-one sitter -Recommend patient is provided resources for outpatient psychotherapy/psychiatry appointments -Patient is cleared psychiatrically for discharge. We will loosely follow-up at this time. Please call us reconsult us if there are any questions or concerns. 02/24/23 14:09
[2023-02-24] MEDS: VANCOMYCIN 1,500 MG in SODIUM CHLORIDE 0.9% 500 ML 500 ML IVPB SCH (15:19)
[2023-02-24] MEDS ORDERED: CEFEPIME 2 GM in SODIUM CHLORIDE 0.9% 100 ML IVPB SCH (16:00)
[2023-02-24 16:46] LABS: Glucose,Whole Blood 161 mg/dL (70-110)
[2023-02-24 20:25] LABS: Glucose,Whole Blood 207 mg/dL (70-110)
--- NOTE | 2023-02-24 21:50 | PN ---
PROGRESS NOTE Mr. Rodríguez has history of wet gangrene of the right foot big toe and second toe. The patient with ray amputation. The patient is on IV antibiotic, under the care of Infectious Disease. Changed dressing with Santyl cream, which should be continued on a daily basis. MMODL / IJN: [id number] /
[2023-02-25] MEDS: VANCOMYCIN 1,500 MG in SODIUM CHLORIDE 0.9% 500 ML 500 ML IVPB SCH ×3 (00:51→23:30)
[2023-02-25] MEDS: HEPARIN SODIUM,PORCINE/PF 5,000 UNIT/0.5 ML SYRINGE SQ SCH ×4 (00:51→23:30)
[2023-02-25] MEDS: HYDROmorphone 1 MG/ML 1 ML SYRINGE IVP PRN (01:09)
[2023-02-25] MEDS: SODIUM CHLORIDE 0.9% 1,000 ML IV SCH ×3 (04:29→21:03)
[2023-02-25 05:19] LABS: Glucose,Whole Blood 173 mg/dL (70-110)
[2023-02-25 06:10] LABS: African American GFR (CKD) 86 (>60 ml/min/1.73 sqM); Non-African American GFR(CKD) 74 (>60 ml/min/1.73 sqM)
[2023-02-25] MEDS: INSULIN ASPART (NovoLOG) 100 UNIT/ML VIAL SQ SCH ×4 (06:42→21:10)
--- NOTE | 2023-02-25 08:25 | P.PN ---
Subjective Progress Note Date: 02/24/23 Principal diagnosis: Diabetic foot infection Patient is a 57 year old male with a past medical history significant for diabetes mellitus, presented to hospital with worsening swelling redness drainage to the right second toe and also involvement of the right big toe has been diagnosed with possible Osteomyelitis with abnormal x-ray on admission to the hospital.Patient is status post amputation of the right foot at metatarsophalangeal joint of the right big toe and second toe completed on 02/21/2023. On today's evaluation that is 02/24/2023 patient continues to be afebrile, the patient pain to the right foot is currently controlled, patient denies chest pain or shortness of breath or cough no nausea vomiting no abdominal pain or diarrhea Objective - Vital Signs Vital signs: Vital Signs Temp 97.7 F 02/24/23 07:49 Pulse 78 02/24/23 08:00 Resp 18 02/24/23 08:00 BP 112/74 02/24/23 07:49 Pulse Ox 99 02/24/23 07:49 FiO2 Intake & Output 02/23/23 02/24/23 02/24/23 18:59 06:59 18:59 Intake Total 500 Output Total 1999 710 Balance -1500 -710 Intake: Oral 500 Output: Urine 1999 710 Other: Voiding Method Urinal Urinal # Voids 2 - Exam GENERAL DESCRIPTION: A middle-age male lying in bed in no distress RESPIRATORY SYSTEM: Unlabored breathing , decreased breath sounds at bases HEART: S1 S2 regular rate and rhythm , ABDOMEN: Soft , no tenderness EXTREMITIES: Right big and second toe amputation site wound is currently dressed no drainage on the dressing - Labs CBC & Chem 7: 02/23/23 09:30 02/25/23 05:22 Labs: Abnormal Lab Results - Last 24 Hours (Table) 02/23/23 02/23/23 02/24/23 Range/Units 16:40 20:14 06:10 POC Glucose (mg/dL) 164 H 115 H 177 H (70-110) mg/dL 02/24/23 Range/Units 11:36 POC Glucose (mg/dL) 309 H (70-110) mg/dL Microbiology - Last 24 Hours (Table) 02/19/23 17:41 Blood Culture - Preliminary Blood 02/19/23 17:41 Blood Culture - Preliminary Blood 02/21/23 16:30 Gram Stain - Preliminary Toe - Right First Tissue Culture - Preliminary Klebsiella oxytoca Enterobacter cloacae Alpha Hemolytic Streptococcus Group D Enterococcus 02/19/23 17:41 Anaerobic Culture - Final Foot - Right Assessment and Plan (1) Osteomyelitis Current Visit: Yes Status: Acute Code(s): M86.9 - OSTEOMYELITIS, UNSPECIFIED SNOMED Code(s): 18811441 (2) Cellulitis Current Visit: No Status: Acute Code(s): L03.90 - CELLULITIS, UNSPECIFIED SNOMED Code(s): 424776888 (3) Diabetic toe ulcer Current Visit: No Status: Acute Code(s): E11.621 - TYPE 2 DIABETES MELLITUS WITH FOOT ULCER; L97.509 - NON-PRESSURE CHRONIC ULCER OTH PRT UNSP FOOT W UNSP SEVERITY SNOMED Code(s): 304915441 Plan: 1patient was in the hospital with extensive right second and first toe diabetic foot infection concerning for wet gangrene and did have bony destruction on the x-ray concerning for osteomyelitis failing outpatient oral clindamycin therapy. 2patient with multiple antibiotic allergies that would limit the number of antibiotics safe to use. 3 patient is status post amputation of the right first and second toe and deep culture did grew Klebsiella Enterobacter and enterococcus faecalis 4-we will discontinue cefepime start the patient on Rocephin and vancomycin to cover for enterococcus and continue the Flagyl Dictation was produced using [employer] dictation software. please excuse any grammatical, word or spelling errors.
[2023-02-25] MEDS: DULoxetine HCL 30 MG CAPSULE.DR PO SCH (09:38)
[2023-02-25] MEDS: lisinopriL 5 MG TAB PO SCH (09:38)
[2023-02-25] MEDS: FAMOTIDINE 20 MG TAB PO SCH (09:38)
[2023-02-25] MEDS: ATORVASTATIN 10 MG TAB PO SCH (09:38)
[2023-02-25] MEDS: metroNIDAZOLE 500 MG TAB PO SCH ×3 (09:39→21:50)
[2023-02-25] MEDS: COLLAGENASE 250 UNIT/GM OINTMENT 30 GM TUBE TOPICAL SCH (09:39)
[2023-02-25 11:21] LABS: Glucose,Whole Blood 149 mg/dL (70-110)
--- NOTE | 2023-02-25 14:38 | P.PN ---
Subjective Progress Note Date: 02/25/23 Principal diagnosis: Diabetic foot infection Patient is a 57 year old male with a past medical history significant for diabetes mellitus, presented to hospital with worsening swelling redness drainage to the right second toe and also involvement of the right big toe has been diagnosed with possible Osteomyelitis with abnormal x-ray on admission to the hospital.Patient is status post amputation of the right foot at metatarsophalangeal joint of the right big toe and second toe completed on 02/21/2023. On today's evaluation that is 02/25/2023 patient remains to be afebrile, the patient pain to the right foot has decreased in intensity, patient denies chest pain or shortness of breath or cough no nausea vomiting no abdominal pain or diarrhea Objective - Vital Signs Vital signs: Vital Signs Temp 98.2 F 02/25/23 07:40 Pulse 82 02/25/23 07:40 Resp 17 02/25/23 07:40 BP 108/66 02/25/23 07:40 Pulse Ox 100 02/25/23 07:40 FiO2 Intake & Output 02/24/23 02/25/23 02/25/23 18:59 06:59 18:59 Intake Total 1080 Output Total 600 300 Balance 480 -300 Intake: Oral 1080 Output: Urine 600 300 Other: Voiding Method Urinal Urinal - Exam GENERAL DESCRIPTION: A middle-age male lying in bed in no distress RESPIRATORY SYSTEM: Unlabored breathing , decreased breath sounds at bases HEART: S1 S2 regular rate and rhythm , ABDOMEN: Soft , no tenderness EXTREMITIES: Right big and second toe amputation site wound is deep surrounding swelling redness has decreased - Labs CBC & Chem 7: 02/23/23 09:30 02/25/23 05:22 Labs: Abnormal Lab Results - Last 24 Hours (Table) 02/24/23 02/24/23 02/25/23 Range/Units 16:45 20:24 05:17 POC Glucose (mg/dL) 161 H 207 H 173 H (70-110) mg/dL 02/25/23 Range/Units 11:20 POC Glucose (mg/dL) 149 H (70-110) mg/dL Microbiology - Last 24 Hours (Table) 02/21/23 16:30 Gram Stain - Final Toe - Right First Tissue Culture - Final Klebsiella oxytoca Enterobacter cloacae Alpha Hemolytic Streptococcus Enterococcus faecalis 02/21/23 16:30 Anaerobic Culture - Final Toe - Right First Anaerobic Gm Negative Bacilli Assessment and Plan (1) Osteomyelitis Current Visit: Yes Status: Acute Code(s): M86.9 - OSTEOMYELITIS, UNSPECIFIED SNOMED Code(s): 40585732 (2) Cellulitis Current Visit: No Status: Acute Code(s): L03.90 - CELLULITIS, UNSPECIFIED SNOMED Code(s): 220285880 (3) Diabetic toe ulcer Current Visit: No Status: Acute Code(s): E11.621 - TYPE 2 DIABETES MELLITUS WITH FOOT ULCER; L97.509 - NON-PRESSURE CHRONIC ULCER OTH PRT UNSP FOOT W UNSP SEVERITY SNOMED Code(s): 627999765 Plan: 1patient was in the hospital with extensive right second and first toe diabetic foot infection concerning for wet gangrene and did have bony destruction on the x-ray concerning for osteomyelitis failing outpatient oral clindamycin therapy. 2patient with multiple antibiotic allergies that would limit the number of antibiotics safe to use. 3 patient is status post amputation of the right first and second toe and deep culture did grew Klebsiella Enterobacter and enterococcus faecalis 4-patient is currently being treated Rocephin and vancomycin along with Flagyl, patient with a PICC line for outpatient IV antibiotic therapy which has been ordered Dictation was produced using [employer] dictation software. please excuse any grammatical, word or spelling errors. Time with Patient: Less than 30
[2023-02-25] MEDS ORDERED: LIDOCAINE 1% INJ 10MG/ML (5 ML VIAL-PF) SQ ONE (15:24)
[2023-02-25 16:20] LABS: Glucose,Whole Blood 194 mg/dL (70-110)
[2023-02-25] MEDS: HYDROmorphone 0.5 MG/0.5 ML SYRINGE IVP PRN (16:55)
--- NOTE | 2023-02-25 17:01 | P.PN ---
Progress Note - Text 57 old gentleman patient came with right foot big toe second toe wet gangrene patient went for ray amputation culture came back as a gram-negative bacilli capsular and enterococcus faecalis patient and care of infectious disease for long-term antibiotic patient had a PICC line placed today change the dressing base of the wound risk is clean. Using Santyl cream which will be continued
--- NOTE | 2023-02-25 17:53 | P.PN ---
Subjective Patient 57-year-old male with a known history of diabetes type 2 [id number], depression and history of vaping and marijuana use presents to ER with complaints of worsening right foot infection. Patient was seen in the ER on 01/31/2023 Menostar antibiotics clindamycin. Patient did take his medications with infectious getting worse which made him come to the ER. Patient is unsure he has been taking his medications correctly and states that he does have cataracts. Wound is draining purulent discharge. Otherwise denies any fever or chills. No cough or sputum problem. No chest pain. No leg swelling. X-ray of the foot showed soft tissue swelling of the second toe with osseous destruction of the second distal phalanx and half of the middle phalanx. Findings in keeping with osteomyelitis. A second area of lucency requesting second proximal phalangeal base could represent a subacute fracture second site of infection. Laboratory data WBC 12.9 hemoglobin 10.4 and platelets 356. Sodium 127 potassium 5.0 chloride 96 bicarb is 19 BUN 25 and creatinine 1.58 and blood sugar is 473. Lactic acid 2.4 CRP 17.1. Liver enzymes are not elevated. 02/21/2023 patient with right foot infection with some gangrenous changes that failed outpatient therapy Patient planned to undergo debridement with vascular surgery to him, I talked to the patient this morning and he AGREEABLE to this plan and he is willing to undergo debridement. Remains on broad-spectrum antibiotics, IV vancomycin, cefepime and Flagyl and normal saline 75 mL/h 02/22/2023 Patient is status post amputation of his diabetic foot ulcer. Culture is growing Klebsiella oxytoca, this could not be covered with broad- spectrum antibiotic with IV vancomycin, cefepime and Flagyl ID team on the case. Continue with normal saline at 75 mL/h, he has stable borderline blood pressure with systolic 90s to 100 but patient was asymptomatic. 02/23/2023 Patient status post debridement of his right foot cellulitis and wound culture growing Klebsiella which is covered with antibiotic per ID team, currently on vancomycin and cefepime and Flagyl. Patient today got agitated with the staff and he was very aggressive maintenance risks to self and staff there for acute event 1 time dose of 1 mg help to come down, after that he told the staff he feels very depressed and he wants to commit suicide. Sitter was placed at bedside and suicidal precautions was initiated and with psych consult. Discussed with the staff and bedside as patient cannot leave AMA otherwise needs to be petitioned and she verbalized understanding and acceptance. 02/24/2023 Patient with diabetic foot ulcer and osteomyelitis, and culture is growing many bacteria, see report. Patient currently is covered with vancomycin and ceftriaxone and Flagyl. Also is getting gentle hydration Creatinine stabilizing within the reference range at 1.0. Less than patient got agitated and he was sent some placental comments therefore sitter was placed at bedside and suicidal precautions was placed and I discussed this with psychiatric team, and evaluated the patient This morning his wound looks better and he looks more calm descent he does not have active plantar cath himself but if it happens passively he will not resisted. He think that his best friend is his mom antecubitum his heart and that he has seen in [facility]. 02/25/2023 Patient clinically is doing well clinically, he is relaxed calm and pleasant his right foot infection is improving slowly and gradually His wound culture is finalized showing multiple bacteria Patient remains on IV vancomycin and Flagyl with the plan is to continue with IV antibiotics upon discharge Later on today he will get a PICC line within the day with a plan for possible discharge in 24-48 hours if he keeps improving at The patient was cleared by psychiatry team, sitter discontinued. Objective - Vital Signs Vital signs: Vital Signs Temp 98.2 F 02/25/23 07:40 Pulse 82 02/25/23 07:40 Resp 17 02/25/23 07:40 BP 108/66 02/25/23 07:40 Pulse Ox 100 02/25/23 07:40 FiO2 Intake & Output 02/24/23 02/25/23 02/25/23 18:59 06:59 18:59 Intake Total 1080 Output Total 600 300 Balance 480 -300 Intake: Oral 1080 Output: Urine 600 300 Other: Voiding Method Urinal Urinal - Exam GENERAL: The patient is alert and oriented x3, not in any acute distress. Well developed, well nourished. HEENT: Pupils are round and equally reacting to light. EOMI. No scleral icterus. No conjunctival pallor. Normocephalic, atraumatic. No pharyngeal erythema. No thyromegaly. CARDIOVASCULAR: S1 and S2 present. No murmurs, rubs, or gallops. PULMONARY: Chest is clear to auscultation, no wheezing , no crackles. ABDOMEN: Soft, nontender, nondistended, normoactive bowel sounds. No palpable organomegaly. MUSCULOSKELETAL: No joint swelling or deformity. -EXTREMITIES: No cyanosis, clubbing, or pedal edema. Right diabetic foot infection of the big toe with dressing in place NEUROLOGICAL: Gross neurological examination did not reveal any focal deficits. SKIN: No rashes. no petechiae. - Labs CBC & Chem 7: 02/23/23 09:30 02/25/23 05:22 Labs: Abnormal Lab Results - Last 24 Hours (Table) 02/24/23 02/24/23 02/25/23 Range/Units 16:45 20:24 05:17 POC Glucose (mg/dL) 161 H 207 H 173 H (70-110) mg/dL 02/25/23 Range/Units 11:20 POC Glucose (mg/dL) 149 H (70-110) mg/dL Microbiology - Last 24 Hours (Table) 02/21/23 16:30 Gram Stain - Final Toe - Right First Tissue Culture - Final Klebsiella oxytoca Enterobacter cloacae Alpha Hemolytic Streptococcus Enterococcus faecalis 02/21/23 16:30 Anaerobic Culture - Final Toe - Right First Anaerobic Gm Negative Bacilli Assessment and Plan Assessment: Acute right diabetic foot infection with second toe gangrenous changes and osteomyelitis.Failed outpatient antibiotic therapy. Sepsis secondary to above Depression with suicidal ideation Hyperglycemia with uncontrolled diabetes type 2 Acute kidney injury likely prerenal Lactic acidosis Cataracts Depression History of vaping and marijuana use Plan: Continue with broad-spectrum antibiotic as per ID team Vascular surgery consult to evaluate for possible debridement Vascular surgery team on the case and planned for surgical debridement Suicidal precautions with psych consult Labs and medication were reviewed.. Continue same treatment. Continue with symptomatic treatment. Resume home medication. Monitor labs and vitals. DVT and GI prophylaxis. Further recommendations as per clinical course of the patient DVT prophylaxis: Subcutaneous heparin GI Prophylaxis: Pepcid PT/OT: Pending Prognosis is guarded
[2023-02-25 20:11] LABS: Glucose,Whole Blood 144 mg/dL (70-110)
[2023-02-25] MEDS: ONDANSETRON 4 MG/2 ML VIAL IVP PRN (21:50)
[2023-02-26] MEDS: SODIUM CHLORIDE 0.9% 1,000 ML IV SCH ×2 (01:11→15:52)
[2023-02-26] MEDS: INSULIN ASPART (NovoLOG) 100 UNIT/ML VIAL SQ SCH ×4 (06:25→21:01)
[2023-02-26] MEDS: ATORVASTATIN 10 MG TAB PO SCH (08:32)
[2023-02-26] MEDS: lisinopriL 5 MG TAB PO SCH (08:33)
[2023-02-26] MEDS: DULoxetine HCL 30 MG CAPSULE.DR PO SCH (08:33)
[2023-02-26] MEDS: FAMOTIDINE 20 MG TAB PO SCH (08:33)
[2023-02-26] MEDS: HEPARIN SODIUM,PORCINE/PF 5,000 UNIT/0.5 ML SYRINGE SQ SCH ×3 (08:34→21:02)
[2023-02-26] MEDS: metroNIDAZOLE 500 MG TAB PO SCH ×3 (08:34→21:02)
[2023-02-26] MEDS: COLLAGENASE 250 UNIT/GM OINTMENT 30 GM TUBE TOPICAL SCH (08:49)
[2023-02-26] MEDS ORDERED: VANCOMYCIN TROUGH DUE 1 EACH MISC MISCELLANE ONE (11:00)
[2023-02-26 11:05] LABS: Glucose,Whole Blood 126 mg/dL (70-110)
[2023-02-26 12:18] VITALS: BMI 30.4
[2023-02-26] MEDS: VANCOMYCIN 1,500 MG in SODIUM CHLORIDE 0.9% 500 ML 500 ML IVPB SCH (13:17)
[2023-02-26] MEDS ORDERED: NON FORMULARY DRUG (Dulaglutide [Trulicity] 1.5 MG/0.5 ML Each) SQ SCH (15:15)
[2023-02-26 16:04] LABS: Glucose,Whole Blood 143 mg/dL (70-110)
[2023-02-26] MEDS: HYDROmorphone 0.5 MG/0.5 ML SYRINGE IVP PRN (20:25)
[2023-02-26 20:45] LABS: Glucose,Whole Blood 167 mg/dL (70-110)
[2023-02-27 01:58] VITALS: TEMP 97.8
[2023-02-27] MEDS: SODIUM CHLORIDE 0.9% 1,000 ML IV SCH (04:07)
[2023-02-27] MEDS ORDERED: VANCOMYCIN 1,500 MG in SODIUM CHLORIDE 0.9% 500 ML 500 ML IVPB SCH (06:00)
[2023-02-27 06:07] LABS: Glucose,Whole Blood 178 mg/dL (70-110)
[2023-02-27] MEDS: INSULIN ASPART (NovoLOG) 100 UNIT/ML VIAL SQ SCH ×2 (06:45→11:51)
[2023-02-27 07:57] VITALS: BP 109/63; PULSE 80; RESP 17
[2023-02-27 08:37] LABS: African American GFR (CKD) 88 (>60 ml/min/1.73 sqM); Non-African American GFR(CKD) 76 (>60 ml/min/1.73 sqM)
[2023-02-27] MEDS: FAMOTIDINE 20 MG TAB PO SCH (08:44)
[2023-02-27] MEDS: ATORVASTATIN 10 MG TAB PO SCH (08:44)
[2023-02-27] MEDS: lisinopriL 5 MG TAB PO SCH (08:44)
[2023-02-27] MEDS: metroNIDAZOLE 500 MG TAB PO SCH (08:45)
[2023-02-27] MEDS: HEPARIN SODIUM,PORCINE/PF 5,000 UNIT/0.5 ML SYRINGE SQ SCH (08:45)
[2023-02-27] MEDS: DULoxetine HCL 30 MG CAPSULE.DR PO SCH (08:46)
[2023-02-27] MEDS: COLLAGENASE 250 UNIT/GM OINTMENT 30 GM TUBE TOPICAL SCH (08:47)
--- NOTE | 2023-02-27 10:34 | P.PN ---
Subjective Patient 57-year-old male with a known history of diabetes type 2 [id number], depression and history of vaping and marijuana use presents to ER with complaints of worsening right foot infection. Patient was seen in the ER on 01/31/2023 Menostar antibiotics clindamycin. Patient did take his medications with infectious getting worse which made him come to the ER. Patient is unsure he has been taking his medications correctly and states that he does have cataracts. Wound is draining purulent discharge. Otherwise denies any fever or chills. No cough or sputum problem. No chest pain. No leg swelling. X-ray of the foot showed soft tissue swelling of the second toe with osseous destruction of the second distal phalanx and half of the middle phalanx. Findings in keeping with osteomyelitis. A second area of lucency requesting second proximal phalangeal base could represent a subacute fracture second site of infection. Laboratory data WBC 12.9 hemoglobin 10.4 and platelets 356. Sodium 127 potassium 5.0 chloride 96 bicarb is 19 BUN 25 and creatinine 1.58 and blood sugar is 473. Lactic acid 2.4 CRP 17.1. Liver enzymes are not elevated. 02/21/2023 patient with right foot infection with some gangrenous changes that failed outpatient therapy Patient planned to undergo debridement with vascular surgery to him, I talked to the patient this morning and he AGREEABLE to this plan and he is willing to undergo debridement. Remains on broad-spectrum antibiotics, IV vancomycin, cefepime and Flagyl and normal saline 75 mL/h 02/22/2023 Patient is status post amputation of his diabetic foot ulcer. Culture is growing Klebsiella oxytoca, this could not be covered with broad- spectrum antibiotic with IV vancomycin, cefepime and Flagyl ID team on the case. Continue with normal saline at 75 mL/h, he has stable borderline blood pressure with systolic 90s to 100 but patient was asymptomatic. 02/23/2023 Patient status post debridement of his right foot cellulitis and wound culture growing Klebsiella which is covered with antibiotic per ID team, currently on vancomycin and cefepime and Flagyl. Patient today got agitated with the staff and he was very aggressive maintenance risks to self and staff there for acute event 1 time dose of 1 mg help to come down, after that he told the staff he feels very depressed and he wants to commit suicide. Sitter was placed at bedside and suicidal precautions was initiated and with psych consult. Discussed with the staff and bedside as patient cannot leave AMA otherwise needs to be petitioned and she verbalized understanding and acceptance. 02/24/2023 Patient with diabetic foot ulcer and osteomyelitis, and culture is growing many bacteria, see report. Patient currently is covered with vancomycin and ceftriaxone and Flagyl. Also is getting gentle hydration Creatinine stabilizing within the reference range at 1.0. Less than patient got agitated and he was sent some placental comments therefore sitter was placed at bedside and suicidal precautions was placed and I discussed this with psychiatric team, and evaluated the patient This morning his wound looks better and he looks more calm descent he does not have active plantar cath himself but if it happens passively he will not resisted. He think that his best friend is his mom antecubitum his heart and that he has seen in [facility]. 02/25/2023 Patient clinically is doing well clinically, he is relaxed calm and pleasant his right foot infection is improving slowly and gradually His wound culture is finalized showing multiple bacteria Patient remains on IV vancomycin and Flagyl with the plan is to continue with IV antibiotics upon discharge Later on today he will get a PICC line within the day with a plan for possible discharge in 24-48 hours if he keeps improving at The patient was cleared by psychiatry team, sitter discontinued. 02/26/2023 Patient clinically doing well and healing. He remains on broad-spectrum antibiotics and his wound is healing PICC line was placed for outpatient IV antibiotics psychiatrically he is stable Patient medically stable for discharge pending insurance authorization Objective - Vital Signs Vital signs: Vital Signs Temp 97.7 F 02/26/23 19:58 Pulse 81 02/26/23 19:58 Resp 17 02/26/23 19:58 BP 118/75 02/26/23 19:58 Pulse Ox 99 02/26/23 19:58 FiO2 Intake & Output 02/26/23 02/26/23 02/27/23 06:59 18:59 06:59 Weight 90.718 kg Other: # Voids 2 - Exam GENERAL: The patient is alert and oriented x3, not in any acute distress. Well developed, well nourished. HEENT: Pupils are round and equally reacting to light. EOMI. No scleral icterus. No conjunctival pallor. Normocephalic, atraumatic. No pharyngeal erythema. No thyromegaly. CARDIOVASCULAR: S1 and S2 present. No murmurs, rubs, or gallops. PULMONARY: Chest is clear to auscultation, no wheezing , no crackles. ABDOMEN: Soft, nontender, nondistended, normoactive bowel sounds. No palpable organomegaly. MUSCULOSKELETAL: No joint swelling or deformity. -EXTREMITIES: No cyanosis, clubbing, or pedal edema. Right diabetic foot infection of the big toe with dressing in place NEUROLOGICAL: Gross neurological examination did not reveal any focal deficits. SKIN: No rashes. no petechiae. - Labs CBC & Chem 7: 02/23/23 09:30 02/27/23 07:53 Labs: Abnormal Lab Results - Last 24 Hours (Table) 02/26/23 02/26/23 02/26/23 Range/Units 11:04 16:02 20:44 POC Glucose (mg/dL) 126 H 143 H 167 H (70-110) mg/dL Microbiology - Last 24 Hours (Table) 02/19/23 17:41 Blood Culture - Final Blood 02/19/23 17:41 Blood Culture - Final Blood Assessment and Plan Assessment: Acute right diabetic foot infection with second toe gangrenous changes and osteomyelitis.Failed outpatient antibiotic therapy. Sepsis secondary to above Depression with suicidal ideation Hyperglycemia with uncontrolled diabetes type 2 Acute kidney injury likely prerenal Lactic acidosis Cataracts Depression History of vaping and marijuana use Plan: Continue with broad-spectrum antibiotic as per ID team Vascular surgery consult to evaluate for possible debridement Vascular surgery team on the case and planned for surgical debridement Suicidal precautions with psych consult Labs and medication were reviewed.. Continue same treatment. Continue with symptomatic treatment. Resume home medication. Monitor labs and vitals. DVT and GI prophylaxis. Further recommendations as per clinical course of the patient DVT prophylaxis: Subcutaneous heparin GI Prophylaxis: Pepcid PT/OT: Pending Prognosis is guarded
[2023-02-27 11:50] LABS: Glucose,Whole Blood 147 mg/dL (70-110)
--- NOTE | 2023-02-27 12:42 | P.DS ---
Providers Date of admission: 02/19/23 17:08 Expected date of discharge: 02/27/23 Attending physician: Valencia Cook Consults: 02/19/23 17:49 Consult Physician Urgent Consulting Provider: Victoria Booth Consult Reason/Comments: Osteomyelitis Do you want consulting provider notified?: Yes 02/20/23 13:10 Consult Physician Routine Consulting Provider: Kennedy Oviedo Consult Reason/Comments: wet gangrene right 2nd toe Do you want consulting provider notified?: Yes 02/23/23 15:16 Consult Physician Routine Consulting Provider: Roberto Johnston Consult Reason/Comments: Depression with suicidal ideation Do you want consulting provider notified?: Yes Primary care physician: Patricio Banuelos [place] [facility] Course: Final diagnosis Acute right diabetic foot infection with second toe gangrenous changes and osteomyelitis. status post amputation of the right great and first toe, Failed outpatient antibiotic therapy. Sepsis secondary to above Depression with suicidal ideation Hyperglycemia with uncontrolled diabetes type 2 Acute kidney injury likely prerenal, improving Lactic acidosis Cataracts Depression History of vaping and marijuana use GI prophylaxis DVT prophylaxis Full code Discharge disposition Patient is being discharged in a stable condition with guarded prognosis to [facility] . Patient will follow-up with Dr. Banuelos in the outpatient setting upon discharge. Patient is to continue with IV and oral antibiotics per ID recommendations as mentioned below as scheduled. Patient to follow-up with infectious disease along with vascular surgery outpatient. Total time taken is greater than 35 minutes. Hospital course This is a 57-year-old male who was recently admitted with worsening right foot pain and infection being closely monitored. Patient with significant history of diabetes and was found to have some gangrenous changes and initially underwent debridement with culture showing Klebsiella and also suggestive of osteomyelitis. Patient was seen and evaluated by vascular surgery and has had right foot great and second toe wet gangrene with enterococcus growing in the finalized cultures. Patient had amputation of those toes with vascular surgery. Patient will continue with local wound care using Santyl and dressing changes as directed. Patient has received a PICC line and will continue on antibiotics minimum 6 weeks and close outpatient follow-up. Patient has been cleared by consultations for discharge. Please refer to other consultation notes for further HPI. Patient was seen and evaluated by psychiatry as patient made comments of increased depression with suicidal ideation. Patient was cleared by psychiatry to continue with outpatient CM. Patient denies any suicidal ideation or thoughts of wanting to harm himself or others. Currently no reports of chest pain, shortness of breath, or palpitations. Patient is afebrile. No reports of nausea or vomiting and patient is tolerating diet. Patient will be going to [facility] [place] today. Guarded prognosis. Physical exam: Gen: This is a 57-year-old male who is awake, alert and oriented 3, well- developed, well-nourished, obese HEENT: Head is atraumatic, normocephalic. Pupils equal, round. Sclerae is anicteric. NECK: Supple. No JVD. No lymphadenopathy. No thyromegaly. LUNGS: Clear to auscultation. No wheezes or rhonchi. No intercostal retraction s. HEART: Regular rate and rhythm. No murmur. ABDOMEN: Soft. Bowel sounds are present. No masses. No tenderness. EXTREMITIES: No pedal edema. No calf tenderness. Right lower extremity with dressing currently dry and intact NEUROLOGICAL: Patient is awake, alert and oriented x3. Cranial nerves 2 through 12 are grossly intact. Diffusely weak Please refer to medication reconciliation sheet for a list of medications. The impression and plan of care has been dictated by Yandy Martínez, Nurse Practitioner as directed. Dr. Demarco MD I have performed a history and examination and MDM of this patient, discussed the same with the dictator, and agree with the dictator's assessment and plan as written ,documented as a scribe. Based on total visit time, I have performed more than 50% of the visit. Patient Condition at Discharge: Stable Plan - Discharge Summary Discharge Rx Participant: No New Discharge Prescriptions: New metroNIDAZOLE [Flagyl] 500 mg PO TID #90 tab Vancomycin HCl in 5 % Dextrose [Vancomycin 1 Gram/250 ml-D5w] 1.5 gm IV Q12HR #84 dose INSULIN ASPART (NovoLOG) [NovoLOG (formulary)] 0 unit SQ ACHS each Famotidine [Pepcid] 20 mg PO DAILY tab cefTRIAXone [Rocephin] 2,000 mg IVP Q24HR #42 each Heparin Sodium,Porcine [Heparin Sodium] 5,000 unit SQ Q12HR #60 each Ibuprofen [Motrin] 400 mg PO Q6HR PRN tab PRN Reason: Mild Pain Or Fever > 100.5 Collagenase [Santyl Ointment] 1 applic TOPICAL DAILY each Acetaminophen Tab [Tylenol] 650 mg PO Q6HR PRN tab PRN Reason: Mild Pain Or Fever > 100.5 Continue Simvastatin [Zocor] 20 mg PO DAILY Indomethacin [Indocin] 50 mg PO Q8H PRN PRN Reason: Pain DULoxetine HCL [Cymbalta] 120 mg PO DAILY Dulaglutide [Trulicity] 1.5 mg SQ WE lisinopriL [Zestril] 5 mg PO DAILY Discontinued Clindamycin [Cleocin] 450 mg PO TID 10 Days #90 cap Discharge Medication List DULoxetine HCL [Cymbalta] 120 mg PO DAILY 02/19/23 [History] Dulaglutide [Trulicity] 1.5 mg SQ WE 02/19/23 [History] Indomethacin [Indocin] 50 mg PO Q8H PRN 02/19/23 [History] Simvastatin [Zocor] 20 mg PO DAILY 02/19/23 [History] lisinopriL [Zestril] 5 mg PO DAILY 02/19/23 [History] Vancomycin HCl in 5 % Dextrose [Vancomycin 1 Gram/250 ml-D5w] 1.5 gm IV Q12HR #84 dose 02/26/23 [Rx] cefTRIAXone [Rocephin] 2,000 mg IVP Q24HR #42 each 02/26/23 [Rx] metroNIDAZOLE [Flagyl] 500 mg PO TID #90 tab 02/26/23 [Rx] Acetaminophen Tab [Tylenol] 650 mg PO Q6HR PRN tab 02/27/23 [Rx] Collagenase [Santyl Ointment] 1 applic TOPICAL DAILY each 02/27/23 [Rx] Famotidine [Pepcid] 20 mg PO DAILY tab 02/27/23 [Rx] Heparin Sodium,Porcine [Heparin Sodium] 5,000 unit SQ Q12HR #60 each 02/27/23 [Rx] INSULIN ASPART (NovoLOG) [NovoLOG (formulary)] 0 unit SQ ACHS each 02/27/23 [Rx] Ibuprofen [Motrin] 400 mg PO Q6HR PRN tab 02/27/23 [Rx] Follow up Appointment(s)/Referral(s): Patricio Banuelos DO [Primary Care Provider] - 1-2 days [place], [NON-STAFF] - As Needed Victoria Booth MD [STAFF PHYSICIAN] - 2 Weeks Activity/Diet/Wound Care/Special Instructions: Patient is going to [facility] [place] Activity as tolerated Continue antibiotic therapy per ID recommendations Recommend follow-up with vascular surgery in 1-2 weeks Follow-up with infectious disease outpatient in 1-2 weeks Continue monitoring Accu-Cheks before meals and at bedtime and continue with diabetic diet NovoLog sliding scale 0-150 equals 0 units 151-200 equals 2 units 201-250 equals 4 units 251-300 equals 6 units 301-350 equals 8 units 351-400 equals 10 units Please notify provider if blood sugar is 400 or above Continue local wound care Discharge Disposition: TRANSFER TO SNF/ECF
[2023-02-28] MEDS ORDERED: VANCOMYCIN TROUGH DUE 1 EACH MISC MISCELLANE ONE (13:00)
--- NOTE | 2023-03-01 09:17 | IR ---
EXAMINATION TYPE: IR cvc insert >=5 years DATE OF EXAM: 02/25/2023 COMPARISON: NONE HISTORY: Antibiotics, 48 cm left basilic, fluoroscopy time 0.2 minutes, DAP 0.289 Gycm2 Fluoroscopy was provided to the referring clinician.
== END 2023-02-27 14:50 | DRG 710 ==
LOC: EC 14:11 → 4SSUR 17:07 → OBSVTOIN 17:08 → 4SSUR 18:18
PROVIDERS: ADMIT Internal Medicine; ATTEND Internal Medicine
PROC: 0Y6R0Z0 Detachment at Right 2nd Toe, Complete, Open Approach (ICD-10-PCS; 2023-02-21)
PROC: 0Y6P0Z0 Detachment at Right 1st Toe, Complete, Open Approach (ICD-10-PCS; principal; 2023-02-21 07:30)
PROC: 02HV33Z Insertion of Infusion Device into Superior Vena Cava, Percutaneous Approach (ICD-10-PCS; 2023-02-25)
PROC: B5181ZA Fluoroscopy of Superior Vena Cava using Low Osmolar Contrast, Guidance (ICD-10-PCS; 2023-02-25)
PROC: B548ZZA Ultrasonography of Superior Vena Cava, Guidance (ICD-10-PCS; 2023-02-25)
DX: A41.89 Other specified sepsis (principal); E11.36 Type 2 diabetes mellitus with diabetic cataract; E11.52 Type 2 diabetes mellitus with diabetic peripheral angiopathy with gangrene; E11.621 Type 2 diabetes mellitus with foot ulcer; F60.89 Other specific personality disorders; I96 Gangrene, not elsewhere classified; E11.628 Type 2 diabetes mellitus with other skin complications; M86.8X7 Other osteomyelitis, ankle and foot; L97.518 Non-pressure chronic ulcer of other part of right foot with other specified severity; E11.42 Type 2 diabetes mellitus with diabetic polyneuropathy; L03.031 Cellulitis of right toe; B95.2 Enterococcus as the cause of diseases classified elsewhere; R45.851 Suicidal ideations; E11.69 Type 2 diabetes mellitus with other specified complication; I10 Essential (primary) hypertension; F32.A Depression, unspecified; N17.9 Acute kidney failure, unspecified; F41.9 Anxiety disorder, unspecified; F32.9 Major depressive disorder, single episode, unspecified; Z88.2 Allergy status to sulfonamides; Z88.0 Allergy status to penicillin
CPT/HCPCS: 36415; 36573; 80048; 80053; 80202; 82565; 83036; 83605; 85025; 86140; 87040; 87070; 87075; 87077; 87186; 87205; 96361; 96365; 96367; 99285

== ENCOUNTER 2023-08-11 19:27 | Inpatient (IN) | payer OTHER ==
[2023-08-11 19:47] LABS: Glucose,Whole Blood 134 mg/dL (70-110)
--- NOTE | 2023-08-11 20:05 | ED ---
General Adult HPI - General Chief complaint: Urogenital Stated complaint: Scrotal swelling Time Seen by Provider: 08/11/23 19:37 Source: patient, EMS, RN notes reviewed Mode of arrival: EMS Limitations: no limitations - History of Present Illness Initial comments: Patient is a 57-year-old male presenting to the emergency department with several concerns. Patient states he has been smoking a lot of marijuana and drugs lately. Patient states the marijuana was confused with additional THC. Patient feels this was probably a bad idea looking back at it. Patient states he has been sleeping quite a bit. Patient does have some scrotal edema. Patient denies any scrotal pain. No trauma. No fever. No redness. Patient has not been taking his insulin lately because he forgot. Patient believes his blood sugar could be high. Patient has not been urinating or having bowel movements as much is normal. - Related Data Home Medications Medication Instructions Recorded Confirmed DULoxetine HCL [Cymbalta] 120 mg PO DAILY 02/19/23 02/19/23 Dulaglutide [Trulicity] 1.5 mg SQ WE 02/19/23 02/19/23 Indomethacin [Indocin] 50 mg PO Q8H PRN 02/19/23 02/19/23 Simvastatin [Zocor] 20 mg PO DAILY 02/19/23 02/19/23 lisinopriL [Zestril] 5 mg PO DAILY 02/19/23 02/19/23 Previous Rx's Medication Instructions Recorded Vancomycin HCl in 5 % Dextrose 1.5 gm IV Q12HR #84 dose 02/26/23 [Vancomycin 1 Gram/250 ml-D5w] cefTRIAXone [Rocephin] 2,000 mg IVP Q24HR #42 each 02/26/23 metroNIDAZOLE [Flagyl] 500 mg PO TID #90 tab 02/26/23 Acetaminophen Tab [Tylenol] 650 mg PO Q6HR PRN tab 02/27/23 Collagenase [Santyl Ointment] 1 applic TOPICAL DAILY each 02/27/23 Famotidine [Pepcid] 20 mg PO DAILY tab 02/27/23 Heparin Sodium,Porcine (1 ml) 5,000 unit SQ Q12HR #60 each 02/27/23 [Heparin Sodium] INSULIN ASPART (NovoLOG) [NovoLOG 0 unit SQ ACHS each 02/27/23 (formulary)] Ibuprofen [Motrin] 400 mg PO Q6HR PRN tab 02/27/23 Allergies Allergy/AdvReac Type Severity Reaction Status Date / Time Penicillins Allergy Rash/Hives Verified 08/11/23 19:40 Sulfa (Sulfonamide Allergy Rash/Hives Verified 08/11/23 19:40 Antibiotics) Review of Systems ROS Statement: Those systems with pertinent positive or pertinent negative responses have been documented in the HPI. ROS Other: All systems not noted in ROS Statement are negative. Constitutional: Denies: fever, chills Eyes: Denies: eye pain ENT: Denies: ear pain Respiratory: Denies: cough Cardiovascular: Denies: chest pain Endocrine: Denies: fatigue Gastrointestinal: Denies: abdominal pain Genitourinary: Reports: as per HPI Musculoskeletal: Denies: back pain Skin: Denies: rash Past Medical History Past Medical History: Diabetes Mellitus Additional Past Medical History / Comment(s): cataracts History of Any Multi-Drug Resistant Organisms: None Reported Past Surgical History: Adenoidectomy Past Psychological History: Depression Smoking Status: Vaper Past Alcohol Use History: Occasional Past Drug Use History: Marijuana General Exam Limitations: no limitations General appearance: alert, in no apparent distress Head exam: Present: normocephalic Eye exam: Present: normal appearance Neck exam: Present: normal inspection Respiratory exam: Present: normal lung sounds bilaterally Cardiovascular Exam: Present: regular rate, normal rhythm GI/Abdominal exam: Present: soft. Absent: tenderness exam: Present: other (Mild to moderate diffuse penile and scrotal swelling without erythema or warmth or tenderness) Extremities exam: Present: pedal edema (+1 bilateral). Absent: calf tenderness Neurological exam: Present: alert. Absent: motor sensory deficit Psychiatric exam: Present: normal affect, normal mood Skin exam: Present: normal color. Absent: erythema Course Vital Signs 08/11/23 08/11/23 19:34 20:44 Temperature 97.9 F Pulse Rate 94 98 Respiratory 18 18 Rate Blood Pressure 97/84 125/73 O2 Sat by Pulse 97 97 Oximetry EKG Findings - EKG Results: EKG: interpreted by ERMD (Left axis. Poor line. Q waves.), sinus rhythm, normal ST/T Medical Decision Making - Medical Decision Making Was pt. sent in by a medical professional or institution (, PA, BURRER MACHINE, urgent care, hospital, or halfway...) When possible be specific @ -No Did you speak to anyone other than the patient for history (EMS, parent, family, police, friend...)? What history was obtained from this source @ -No Did you review nursing and triage notes (agree or disagree)? Why? @ -I reviewed and agree with nursing and triage notes Were old charts reviewed (outside hosp., previous admission, EMS record, old EKG, old radiological studies, urgent care reports/EKG's, halfway records)? Report findings @ -Previous chest x-ray reviewed Differential Diagnosis (chest pain, altered mental status, abdominal pain women, abdominal pain men, vaginal bleeding, weakness, fever, dyspnea, syncope, headache, dizziness, GI bleed, back pain, seizure, CVA, palpatations, mental health, musculoskeletal)? @ -Differential Dyspnea: Coronary syndrome, arrhythmia, tamponade, asthma, COPD, pulmonary embolism, pneumonia, pneumothorax, pulmonary effusion, anaphylaxis, diabetic ketoacidosis, flailed chest, pulmonary contusion, diaphragmatic rupture, anemia, neuromuscular, this is not meant to be an all-inclusive list. EKG interpreted by me (3pts min.). @ -As above X-rays interpreted by me (1pt min.). @ -Chest x-ray shows on shaped opacity right mid lung CT interpreted by me (1pt min.). @ -None done U/S interpreted by me (1pt. min.). @ - What testing was considered but not performed or refused? (CT, X-rays, U/S, labs)? Why? @ -None What meds were considered but not given or refused? Why? @ -None Did you discuss the management of the patient with other professionals (professionals i.e. , PA, BURRER MACHINE, lab, RT, psych nurse, social service agency director, [place] di[place] physical therapist, teacher, surveillance sensor officer, case work aide)? Give summary @ -Case discussed with practitioner Yajaira who will admit covering Dr. Banuelos. Was smoking cessation discussed for >3mins.? @ -No Was critical care preformed (if so, how long)? @ -No Were there social determinants of health that impacted care today? How? (Homelessness, low income, unemployed, alcoholism, drug addiction, transportation, low edu. Level, literacy, decrease access to med. care, alf, rehab)? @ -No Was there de-escalation of care discussed even if they declined (Discuss DNR or withdrawal of care, Hospice)? DNR status @ -No What co-morbidities impacted this encounter? (DM, HTN, Smoking, COPD, CAD, Cancer, CVA, ARF, Chemo, Hep., AIDS, mental health diagnosis, sleep apnea, morbid obesity)? @ -None Was patient admitted / discharged? Hospital course, mention meds given and route, prescriptions, significant lab abnormalities, going to OR and other pertinent info. @ -Patient presents with lower body edema and urinary retention and acute kidney injury. Symptoms hopefully will improve with Reed catheter. Patient will be admitted and reevaluated. Patient also has probable pneumonia and will be treated Undiagnosed new problem with uncertain prognosis? @ -No Drug Therapy requiring intensive monitoring for toxicity (Heparin, Nitro, Insulin, Cardizem)? @ -No Were any procedures done? @ -No Diagnosis/symptom? @ -Urinary retention, acute kidney injury, pneumonia Acute, or Chronic, or Acute on Chronic? @ -Acute, acute, acute Uncomplicated (without systemic symptoms) or Complicated (systemic symptoms)? @ -Urinary retention is Acute with acute kidney injury Side effects of treatment? @ -No Exacerbation, Progression, or Severe Exacerbation? @ -No Poses a threat to life or bodily function? How? (Chest pain, [place], [place], pneumonia, PE, COPD, DKA, ARF, appy, cholecystitis, CVA, Diverticulitis, Homicidal, Suicidal, threat to staff... and all critical care pts) @ -No - Lab Data Result diagrams: 08/11/23 19:55 08/11/23 19:55 Lab Results 08/11/23 08/11/23 08/11/23 Range/Units 19:45 19:55 19:55 WBC 5.2 (3.8-10.6) k/uL RBC 4.19 L (4.30-5.90) m/uL Hgb 11.3 L (13.0-17.5) gm/dL Hct 36.2 L (39.0-53.0) % MCV 86.3 (80.0-100.0) fL MCH 26.9 (25.0-35.0) pg MCHC 31.2 (31.0-37.0) g/dL RDW 15.7 H (11.5-15.5) % Plt Count 162 (150-450) k/uL MPV 8.0 Neutrophils % 67 % Lymphocytes % 21 % Monocytes % 6 % Eosinophils % 2 % Basophils % 1 % Neutrophils # 3.5 (1.3-7.7) k/uL Lymphocytes # 1.1 (1.0-4.8) k/uL Monocytes # 0.3 (0-1.0) k/uL Eosinophils # 0.1 (0-0.7) k/uL Basophils # 0.0 (0-0.2) k/uL Hypochromasia Moderate PT 12.0 (10.0-12.5) sec INR 1.1 (<1.2) APTT 23.2 (22.0-30.0) sec Sodium (137-145) mmol/L Potassium (3.5-5.1) mmol/L Chloride (98-107) mmol/L Carbon Dioxide (22-30) mmol/L Anion Gap mmol/L BUN (9-20) mg/dL Creatinine (0.66-1.25) mg/dL Est GFR (CKD-EPI)AfAm (>60 ml/min/1.73 sqM) Est GFR (CKD-EPI)NonAf (>60 ml/min/1.73 sqM) Glucose (74-99) mg/dL POC Glucose (mg/dL) 134 H (70-110) mg/dL POC Glu Senior Design Engineering Specialist ID Yanique Floyd Plasma Lactic Acid Kem (0.7-2.0) mmol/L Calcium (8.4-10.2) mg/dL Magnesium (1.6-2.3) mg/dL Total Bilirubin (0.2-1.3) mg/dL AST (17-59) U/L ALT (4-49) U/L Alkaline Phosphatase (38-126) U/L Total Protein (6.3-8.2) g/dL Albumin (3.5-5.0) g/dL Urine Color Urine Appearance (Clear) Urine pH (5.0-8.0) Ur Specific [place] (1.001-1.035) Urine Protein (Negative) Urine Glucose (UA) (Negative) Urine Ketones (Negative) Urine Blood (Negative) Urine Nitrite (Negative) Urine Bilirubin (Negative) Urine Urobilinogen (<2.0) mg/dL Ur Leukocyte Esterase (Negative) Urine RBC (0-5) /hpf Urine WBC (0-5) /hpf Ur Squamous Epith Cells (0-4) /hpf Urine Bacteria (None) /hpf Hyaline Casts (0-2) /lpf Urine Mucus (None) /hpf Acetone, Qual (Negative) 08/11/23 08/11/23 08/11/23 Range/Units 19:55 19:55 19:55 WBC (3.8-10.6) k/uL RBC (4.30-5.90) m/uL Hgb (13.0-17.5) gm/dL Hct (39.0-53.0) % MCV (80.0-100.0) fL MCH (25.0-35.0) pg MCHC (31.0-37.0) g/dL RDW (11.5-15.5) % Plt Count (150-450) k/uL MPV Neutrophils % % Lymphocytes % % Monocytes % % Eosinophils % % Basophils % % Neutrophils # (1.3-7.7) k/uL Lymphocytes # (1.0-4.8) k/uL Monocytes # (0-1.0) k/uL Eosinophils # (0-0.7) k/uL Basophils # (0-0.2) k/uL Hypochromasia PT (10.0-12.5) sec INR (<1.2) APTT (22.0-30.0) sec Sodium 134 L (137-145) mmol/L Potassium 4.6 (3.5-5.1) mmol/L Chloride 102 (98-107) mmol/L Carbon Dioxide 17 L (22-30) mmol/L Anion Gap 15 mmol/L BUN 45 H (9-20) mg/dL Creatinine 2.48 H (0.66-1.25) mg/dL Est GFR (CKD-EPI)AfAm 32 (>60 ml/min/1.73 sqM) Est GFR (CKD-EPI)NonAf 28 (>60 ml/min/1.73 sqM) Glucose 124 H (74-99) mg/dL POC Glucose (mg/dL) (70-110) mg/dL POC Glu Senior Design Engineering Specialist ID Plasma Lactic Acid Kem 1.3 (0.7-2.0) mmol/L Calcium 9.2 (8.4-10.2) mg/dL Magnesium 2.1 (1.6-2.3) mg/dL Total Bilirubin 1.1 (0.2-1.3) mg/dL AST 29 (17-59) U/L ALT 17 (4-49) U/L Alkaline Phosphatase 85 (38-126) U/L Total Protein 7.2 (6.3-8.2) g/dL Albumin 4.0 (3.5-5.0) g/dL Urine Color Yellow Urine Appearance Clear (Clear) Urine pH 5.0 (5.0-8.0) Ur Specific [place] 1.024 (1.001-1.035) Urine Protein 1+ H (Negative) Urine Glucose (UA) Negative (Negative) Urine Ketones Negative (Negative) Urine Blood Negative (Negative) Urine Nitrite Negative (Negative) Urine Bilirubin Negative (Negative) Urine Urobilinogen 2.0 (<2.0) mg/dL Ur Leukocyte Esterase Negative (Negative) Urine RBC 3 (0-5) /hpf Urine WBC 8 H (0-5) /hpf Ur Squamous Epith Cells <1 (0-4) /hpf Urine Bacteria Rare H (None) /hpf Hyaline Casts 50 H (0-2) /lpf Urine Mucus Rare H (None) /hpf Acetone, Qual Negative (Negative) Disposition Clinical Impression: Urinary retention, Acute kidney injury, Pneumonia Disposition: ADMITTED IP TO THIS HOSP Is patient prescribed a controlled substance at d/c from ED?: No Referrals: Patricio Banuelos DO [Primary Care Provider] - 1-2 days Time of Disposition: 21:30
[2023-08-11 20:17] LABS: Basophils % (A) 1 %; Eosinophils # (A) 0.1 k/uL (0-0.7); Eosinophils % (A) 2 %; HCT 36.2 % (39.0-53.0); HGB 11.3 gm/dL (13.0-17.5); Hypochromasia Moderate; Lymphocytes # (A) 1.1 k/uL (1.0-4.8); Lymphocytes % (A) 21 %; MCH 26.9 pg (25.0-35.0); MCHC 31.2 g/dL (31.0-37.0); MCV 86.3 fL (80.0-100.0); Monocytes # (A) 0.3 k/uL (0-1.0); Monocytes % (A) 6 %; Neutrophils # (A) 3.5 k/uL (1.3-7.7); Neutrophils % (A) 67 %; Platelet Count 162 k/uL (150-450); RBC 4.19 m/uL (4.30-5.90); RDW 15.7 % (11.5-15.5); WBC 5.2 k/uL (3.8-10.6)
[2023-08-11 20:33] LABS: INR 1.1 (<1.2); Partial Thromboplastin Time 23.2 sec (22.0-30.0)
[2023-08-11 20:37] LABS: ALT 17 U/L (4-49); AST 29 U/L (17-59); African American GFR (CKD) 32 (>60 ml/min/1.73 sqM); Alkaline Phosphatase 85 U/L (38-126); Anion Gap 15 mmol/L; Blood Urea Nitrogen 45 mg/dL (9-20); Calcium 9.2 mg/dL (8.4-10.2); Carbon Dioxide 17 mmol/L (22-30); Chloride 102 mmol/L (98-107); Glucose 124 mg/dL (74-99); Magnesium 2.1 mg/dL (1.6-2.3); Non-African American GFR(CKD) 28 (>60 ml/min/1.73 sqM); Potassium 4.6 mmol/L (3.5-5.1); Sodium 134 mmol/L (137-145); Total Bilirubin 1.1 mg/dL (0.2-1.3); Total Protein 7.2 g/dL (6.3-8.2)
[2023-08-11 21:09] LABS: Appearance,Urine Clear (Clear); Bacteria,Urine Rare /hpf; Bilirubin,Urine Negative (Negative); Blood,Urine Negative (Negative); Color,Urine Yellow; Glucose,Urine (UA) Negative (Negative); Hyaline Casts,Urine 50 /lpf (0-2); Ketones,Urine Negative (Negative); Leukocyte Esterase,Urine Negative (Negative); Mucus,Urine Rare /hpf; Nitrite,Urine Negative (Negative); Protein,Urine 1+ (Negative); RBC,Urine 3 /hpf (0-5); Specific Gravity,Urine 1.024 (1.001-1.035); Squamous Epithelial Cell,Urine <1 /hpf (0-4); WBC,Urine 8 /hpf (0-5)
--- NOTE | 2023-08-11 21:19 | US ---
EXAMINATION TYPE: US scrotum with doppler. Grayscale and color Doppler Duplex imaging performed of latasha lanza scrotum. DATE OF EXAM: 08/11/2023 COMPARISON: NONE CLINICAL INDICATION: Male, 57 years old with history of swelling; Penile infection and swelling to sc rotum EXAM MEASUREMENTS: TESTICLES: Right Testicle: 3.5 x 2.5 x 2.7 cm Left Testicle: 3.3 x 2.4 x 2.3 cm EPIDIDYMIS HEAD: Right Epididymis: 0.9 cm Left Epididymis: 0.7 cm Doppler performed to assess for testicular vascularity; good bilateral color flow and waveforms are s een. There is no evidence of testicular torsion. Presence of hydroceles: No Presence of varicoceles: No Edema noted. No other discrete abnormality IMPRESSION: 1. No acute testicular abnormality by ultrasound. 2. Superficial edema and swelling is evident.
--- NOTE | 2023-08-11 21:20 | XR ---
EXAMINATION TYPE: XR chest 2V DATE OF EXAM: 08/11/2023 COMPARISON: None INDICATION: Weakness TECHNIQUE: Frontal and lateral views of the chest are obtained. FINDINGS: The heart size is normal. The pulmonary vasculature is normal. Right perihilar infiltrate is present. Small right pleural effusion may be present.. IMPRESSION: 1. Clinical correlation recommended for right mid lung pneumonia. Small right pleural effusion is lik pam present.
--- NOTE | 2023-08-11 21:21 | XR ---
EXAMINATION TYPE: XR abdomen 1V DATE OF EXAM: 08/11/2023 COMPARISON: None INDICATION: Constipation TECHNIQUE: Single view abdomen upright view FINDINGS: Colonic bowel gas is present. Multiple small air collections are within the colon. No suspicious air- fluid levels are evident. No dilated small bowel loops are identified. No mass effect is evident. Psoas margins are normal. No organomegaly is present. No calcifications are evident. IMPRESSION: 1. Nonspecific colonic bowel gas. Significant fecal retention is not identified. Consider gastroenter itis.
[2023-08-11] MEDS ORDERED: NALOXONE 0.4 MG/ML 1 ML VIAL IV PRN (21:33)
[2023-08-11] MEDS ORDERED: AZITHROMYCIN 500 MG in SODIUM CHLORIDE 0.9% 250 ML IVPB STA (21:33)
[2023-08-11] MEDS ORDERED: PNEUMONIA PROTOCOL UTILIZED 1 EACH MISC PO PRN (21:33)
[2023-08-11] MEDS ORDERED: SODIUM CHLORIDE 0.9% 1,000 ML IV SCH (21:45)
[2023-08-12 09:41] LABS: Basophils % (A) 1 %; Eosinophils # (A) 0.1 k/uL (0-0.7); Eosinophils % (A) 1 %; HCT 35.7 % (39.0-53.0); Hypochromasia Moderate; Lymphocytes # (A) 0.9 k/uL (1.0-4.8); Lymphocytes % (A) 16 %; MCH 26.6 pg (25.0-35.0); MCHC 30.8 g/dL (31.0-37.0); MCV 86.2 fL (80.0-100.0); Mean Platelet Volume 8.1; Monocytes # (A) 0.3 k/uL (0-1.0); Monocytes % (A) 5 %; Neutrophils # (A) 4.1 k/uL (1.3-7.7); Neutrophils % (A) 74 %; Platelet Count 146 k/uL (150-450); RBC 4.14 m/uL (4.30-5.90); RDW 15.6 % (11.5-15.5); WBC 5.6 k/uL (3.8-10.6)
[2023-08-12 09:57] LABS: ALT 17 U/L (4-49); AST 26 U/L (17-59); African American GFR (CKD) 34 (>60 ml/min/1.73 sqM); Albumin 3.7 g/dL (3.5-5.0); Alkaline Phosphatase 84 U/L (38-126); Anion Gap 12 mmol/L; Blood Urea Nitrogen 46 mg/dL (9-20); Carbon Dioxide 18 mmol/L (22-30); Chloride 105 mmol/L (98-107); Glucose 112 mg/dL (74-99); Non-African American GFR(CKD) 30 (>60 ml/min/1.73 sqM); Sodium 135 mmol/L (137-145); Total Bilirubin 1.2 mg/dL (0.2-1.3); Total Protein 6.9 g/dL (6.3-8.2)
--- NOTE | 2023-08-12 10:26 | US ---
EXAMINATION TYPE: US renals and bladder DATE OF EXAM: 08/11/2023 COMPARISON: NONE CLINICAL INDICATION: Male, 57 years old with history of DONELL; DONELL EXAM MEASUREMENTS: Right Kidney: 10.4 x 5.0 x 5.4 cm Left Kidney: 11.6 x 5.2 x 5.7 cm Right Kidney: No hydronephrosis or masses seen Left Kidney: No hydronephrosis or masses seen Bladder: Not seen due to guzman Pleural effusion seen on right side. Ascites seen in RLQ and LLQ There is no evidence for hydronephrosis at this point in time. No nephrolithiasis is seen. No emiliano s are identified. The urinary bladder is anechoic. Bilateral ureteral jets are seen. IMPRESSION: 1. Right pleural effusion. 2. Ascites. 3. Renal ultrasound appears unremarkable.
--- NOTE | 2023-08-12 10:28 | XR ---
EXAMINATION TYPE: XR chest 2V DATE OF EXAM: 08/12/2023 COMPARISON: 08/11/2023 INDICATION: Pneumonia TECHNIQUE: Frontal and lateral views of the chest are obtained. FINDINGS: The heart size is normal. The pulmonary vasculature is normal. Right mid lung infiltrate remains present. Posterior pleural effusion is present likely at the right base. IMPRESSION: 1. Right midlung pneumonia. 2. Small right pleural effusion
--- NOTE | 2023-08-12 12:01 | P.CNPUL ---
History of Present Illness Consult date: 08/12/23 Requesting physician: Zay Pal Reason for consult: other Chief complaint: Lower extremity edema, scrotal edema. History of present illness: Pulmonary consult dated 08/12/2023. 57-year-old male who presents to the emergency department, on August 11. He was brought in by EMS. The patient essentially presented with lower extremity edema, and scrotal edema. The patient denied any respiratory issues including shortness of breath, cough, wheezing, chest tightness, or phlegm production. Th e patient apparently is been smoking a lot of marijuana recently, and has not been taking his insulin recently. He seems rather strange to me, and that his history was a bit disoriented. Nonetheless, he did have scrotal edema, and lower extremity edema. He apparently has a history of asthma, which is mild, diabetes, hyperlipidemia, hypertension, and BPH. White count 5.6, hemoglobin 11, hematocrit 35.7, and platelet count 146,000. Coagulation studies were normal. Sodium 135, potassium 5, chlorides 105, CO2 18, anion gap 12, BUN 46, creatinine 2.36. Glucose 112. BNP was 7080. Pro-calcitonin level was 0.07. The patient will need an echocardiogram. The patient's renal ultrasound appea red normal. In our opinion, the chest x-ray was most consistent with fluid overload, and not pneumonia. The normal pro-calcitonin level and elevated N- terminal proBNP, supports that notion. Review of Systems REVIEW OF SYSTEMS: CONSTITUTIONAL: [Negative.] NEUROLOGIC: [ Negative.] HEENT: [ Negative.] CARDIAC: Lower extremity edema. PULMONARY: [Negative.] GI: [Negative.] : Scrotal edema. RHEUMATOLOGIC: [ Negative.] IMMUNOLOGIC: [ Negative.] ENDOCRINE: [Negative. ] DERMATOLOGIC: [Negative.] Past Medical History Past Medical History: Diabetes Mellitus Additional Past Medical History / Comment(s): cataracts History of Any Multi-Drug Resistant Organisms: None Reported Past Surgical History: Adenoidectomy Past Psychological History: Depression Smoking Status: Vaper Past Alcohol Use History: Occasional Past Drug Use History: Marijuana Medications and Allergies Home Medications Medication Instructions Recorded Confirmed Type Dulaglutide [Trulicity] 1.5 mg SQ FR 02/19/23 08/11/23 History Simvastatin [Zocor] 20 mg PO DAILY 02/19/23 08/11/23 History Albuterol Sulfate [Albuterol 2 puff PO RT-Q6H PRN 08/11/23 08/11/23 History Sulfate Hfa] Insulin Lispro [Admelog Solostar] 5 units SQ TID-W/MEALS 08/11/23 08/11/23 History Lamictal Starter Pack 1 dose PO DIRECTED 08/11/23 08/11/23 History Tamsulosin HCl [Flomax] 0.4 mg PO DAILY 08/11/23 08/11/23 History lamoTRIgine [LaMICtal] 100 mg PO DIRECTED 08/11/23 08/11/23 History Allergies Allergy/AdvReac Type Severity Reaction Status Date / Time Penicillins Allergy Rash/Hives Verified 08/11/23 21:38 Sulfa (Sulfonamide Allergy Rash/Hives Verified 08/11/23 21:38 Antibiotics) Physical Exam Osteopathic Statement: *. No significant issues noted on an osteopathic structural exam other than those noted in the History and Physical/Consult. Vitals: Vital Signs Temp Pulse Resp BP Pulse Ox 08/12/23 10:59 97.5 F L 92 18 94/65 98 08/12/23 08:56 97.6 F 91 16 104/66 98 08/12/23 01:43 84 16 95/79 97 08/11/23 23:35 89 16 111/79 97 08/11/23 21:29 92 16 116/88 97 08/11/23 20:44 98 18 125/73 97 08/11/23 19:34 97.9 F 94 18 97/84 97 Intake and Output 08/11/23 08/12/23 08/12/23 22:59 06:59 14:59 Output Total 800 150 Balance -800 -150 Output: Urine 800 150 Uretheral (Reed) 800 150 Other: Weight 108.862 kg No acute distress, oriented 3. Currently on room air. HEENT examination is grossly unremarkable. Neck supple. Full range of motion. No adenopathy thyromegaly or neck vein distention. Cardiovascular examination reveals regular rhythm rate. S1-S2 normal. No S3 or S4. No discernible murmur noted. Heart sounds are distant. Heart rate 92 bpm. Lungs reveal minimal basilar crackles. Breath sounds equal. No rhonchi or wheezes. Saturations are excellent on room air. Abdomen soft, with bowel sounds. No masses or tenderness. There is scrotal edema. Extremities are intact. No cyanosis or clubbing. 1+ to 2+ pitting edema noted. Skin is without rash or lesion. Neurologic examination is brief but nonfocal. Results - Laboratory Findings CBC and BMP: 08/12/23 09:01 08/12/23 09:01 PT/INR, D-dimer PT 12.0 sec (10.0-12.5) 08/11/23 19:55 INR 1.1 (<1.2) 08/11/23 19:55 Abnormal lab findings: Abnormal Labs 08/11/23 08/11/23 08/11/23 19:45 19:55 19:55 RBC 4.19 L Hgb 11.3 L Hct 36.2 L MCHC RDW 15.7 H Plt Count Lymphocytes # Sodium 134 L Carbon Dioxide 17 L BUN 45 H Creatinine 2.48 H Glucose 124 H POC Glucose (mg/dL) 134 H Urine Protein Urine WBC Urine Bacteria Hyaline Casts Urine Mucus 08/11/23 08/12/23 08/12/23 19:55 09:01 09:01 RBC 4.14 L Hgb 11.0 L Hct 35.7 L MCHC 30.8 L RDW 15.6 H Plt Count 146 L Lymphocytes # 0.9 L Sodium 135 L Carbon Dioxide 18 L BUN 46 H Creatinine 2.36 H Glucose 112 H POC Glucose (mg/dL) Urine Protein 1+ H Urine WBC 8 H Urine Bacteria Rare H Hyaline Casts 50 H Urine Mucus Rare H - Diagnostic Findings Chest x-ray: image reviewed Assessment and Plan Assessment: Fluid overload state, with scrotal edema, lower extremity edema, and CHF on chest x-ray. Doubt pneumonia. Probable acute kidney injury. History of diabetes mellitus. History of hyperlipidemia. History of hypertension. History of BPH. History of mild chronic bronchial asthma. Plan: Plan dated 08/12/2023. The patient's antibiotics will be discontinued. I don't believe the patient has pneumonia. He's not having any symptoms of pneumonia. He looks to have acute kidney injury, and a fluid overload state. He has scrotal edema, and significant lower extremity edema. The patient will need an echocardiogram to evaluate cardiac function. Additional recommendations and suggestions are forthcoming. Prognosis is guarded. Time with Patient: Greater than 30
[2023-08-12] MEDS ORDERED: ALBUTEROL NEBULIZED 2.5 MG/3 ML INHALATION PRN (12:14)
[2023-08-12] MEDS ORDERED: DEXTROSE 50% SYRINGE 50 ML IVP PRN ×2 (12:15)
[2023-08-12 13:35] LABS: Glucose,Whole Blood 134 mg/dL (70-110)
[2023-08-12] MEDS: INSULIN ASPART (NovoLOG) 100 UNIT/ML VIAL SQ SCH ×4 (13:38→21:19)
[2023-08-12] MEDS: HEPARIN SODIUM,PORCINE 5,000 UNIT/ML 1 ML VIAL SQ SCH ×2 (13:41→20:44)
[2023-08-12] MEDS: TAMSULOSIN 0.4 MG CAP.ER.24H PO SCH (13:42)
[2023-08-12] MEDS: FUROSEMIDE 10 MG/ML 2 ML VIAL IV SCH (13:42)
--- NOTE | 2023-08-12 16:33 | CA ---
Transthoracic Echo Report Name: Isiah Rodríguez Age: 57 Gender: M : 1965 Exam Date: 08/12/2023 13:21 Exam Location: [facility] Ht (in): 68 Wt (lb): 240 Ordering Physician: Shira Feliz Attending/Referring Phys: Supervisor [employer] Lucas Zepeda Procedure CPT: Indications: chf Cardiac Hx: Technical Quality: Fair Contrast 1: Total Dose (mL): Contrast 2: Total Dose (mL): MEASUREMENTS (Male / Female) Normal Values 2D ECHO LV Diastolic Diameter PLAX 5.5 cm 4.2 - 5.9 / 3.9 - 5.3 cm LV Systolic Diameter PLAX 5.2 cm IVS Diastolic Thickness 1.2 cm 0.6 - 1.0 / 0.6 - 0.9 cm LVPW Diastolic Thickness 1.2 cm 0.6 - 1.0 / 0.6 - 0.9 cm LV Relative Wall Thickness 0.4 RV Internal Dim ED PLAX 4.2 cm LVOT Diameter 2.0 cm Aortic Root Diameter 3.4 cm LA Systolic Diameter LX 3.1 cm 3.0 - 4.0 / 2.7 - 3.8 cm LV Diastolic Volume MOD BP 104.9 cm??? 67 - 155 / 56 - 104 cm??? LV Systolic Volume MOD BP 84.9 cm??? 22 - 58 / 19 - 49 cm??? LV Ejection Fraction MOD BP 19.1 % >= 55 % LV Cardiac Index MOD BP 790.1 cm???/min???m??? LV Diastolic Volume MOD 4C 108.5 cm??? LV Systolic Volume MOD 4C 79.7 cm??? LV Ejection Fraction MOD 4C 26.5 % LV Cardiac Index MOD 4C 1135.4 cm???/min???m??? LV Diastolic Length 4C 7.9 cm LV Systolic Length 4C 7.5 cm LV Diastolic Volume MOD 2C 89.1 cm??? LV Systolic Volume MOD 2C 97.0 cm??? LV Ejection Fraction MOD 2C -8.8 % LV Cardiac Index MOD 2C -311.2 cm???/min???m??? LV Diastolic Length 2C 6.5 cm LV Systolic Length 2C 7.1 cm Ascending Aorta Diameter 3.1 cm DOPPLER AV Peak Velocity 76.7 cm/s AV Peak Gradient 2.4 mmHg LVOT Peak Velocity 72.4 cm/s LVOT Peak Gradient 2.1 mmHg LVOT Velocity Time Integral 11.2 cm LVOT Stroke Volume 35.2 cm??? LVOT Stroke Volume Index 16.0 ml/m??? LVOT Cardiac Index 1391.7 cm???/min???m??? AV Area Cont Eq pk 3.0 cm??? MV Peak Velocity 130.4 cm/s MV Peak Gradient 6.8 mmHg MV Mean Velocity 61.8 cm/s MV Mean Gradient 1.9 mmHg MV Velocity Time Integral 36.3 cm MR Peak Velocity 342.9 cm/s MR Peak Gradient 47.0 mmHg TR Peak Velocity 188.1 cm/s TR Peak Gradient 14.2 mmHg PV Peak Velocity 48.2 cm/s PV Peak Gradient 0.9 mmHg FINDINGS Left Ventricle Normal LV size and wall thickness. Left ventricular ejection fraction is estimated at 15-20 %. Right Ventricle Severe right ventricular dilatation. Tapse= 1.1cm. RVSP= 33mmHg. Right Atrium Normal right atrial size. Left Atrium Mild left atrial dilatation. Mitral Valve Structurally normal mitral valve. Moderate MR. Aortic Valve Trileaflet aortic valve. Mild AV sclerosis. No aortic stenosis. No aortic regurgitation. Tricuspid Valve Structurally normal tricuspid valve. Moderate TR. Pulmonic Valve Structurally normal pulmonic valve. No pulmonic regurgitation. Pericardium Normal pericardium. Aorta Normal size aortic root. CONCLUSIONS Diffuse global hypokinesis with severe LV systolic dysfunction Moderate mitral regurgitation Moderate tricuspid regurgitation Previewed by: Dr. Darinel Cheung MD (Electronically Signed) Final Date: 12 August 2023 16:32
[2023-08-12 18:02] LABS: Glucose,Whole Blood 217 mg/dL (70-110)
[2023-08-12] MEDS ORDERED: AZITHROMYCIN 500 MG TAB PO SCH (21:00)
[2023-08-12 21:13] LABS: Glucose,Whole Blood 100 mg/dL (70-110)
[2023-08-12] MEDS ORDERED: ACETAMINOPHEN TAB 325 MG TAB PO PRN (21:23)
--- NOTE | 2023-08-12 23:14 | HP ---
HISTORY AND PHYSICAL CHIEF COMPLAINT: Scrotal swelling, generalized edema, pneumonia. HISTORY OF PRESENT ILLNESS: This is a 57-year-old gentleman with a past medical history of multiple medical problems, suspected to be noncompliant. The patient presented to [facility] with bilateral leg edema, generalized edema and as well as scrotal edema. Evaluation showed some fluid overload and renal failure, some CHF. The possibility of right-sided pneumonia is also elicited and the patient is admitted for further evaluation and treatment. The creatinine is found to be 2.3 and this is definitely showing a recent worsening and hemoglobin is found to be 11. There is no history of any fever, rigors, or chills at this time. PAST MEDICAL HISTORY: Reviewed include history of diabetes mellitus type 2, history of cataracts, depression, vaping. HOME MEDICATIONS: Reviewed include Trulicity. Dose and rest of medications reviewed. ALLERGIES: Penicillin. FAMILY HISTORY: No history of heart disease or strokes in the family. SOCIAL HISTORY: Vaping, THC. REVIEW OF SYSTEMS: A 14-point review of systems negative except as mentioned earlier. PHYSICAL EXAMINATION: VITAL SIGNS: Pulse 92, blood pressure 94/62, respirations 18. HEENT: Conjunctivae normal. NECK: No jugular venous distention. CARDIOVASCULAR: S1, S2. RESPIRATIONS: Breath sounds diminished at the bases. A few scattered rhonchi and crackles. ABDOMEN: Soft. LEGS: Bilateral leg edema. Scrotal edema present. NERVOUS SYSTEM: Diffusely weak. SKIN: No ulcer, rash, bleeding. JOINTS: No active deforming arthropathy. LABORATORY DATA: Hemoglobin 11. Otherwise, labs are as detailed above, reviewed completely. Chest x- ray reviewed personally. Repeat chest x-ray as well. Renal ultrasound noted. Scrotum ultrasound noted. ASSESSMENT: 1. Generalized edema as well as scrotal edema and ascites with possible fluid overload. 2. Acute renal failure, multifactorial, possibly. 3. Congestive heart failure acute exacerbation possibly. 4. Right pleural effusion. 5. Ascites. 6. Possible pneumonia. 7. Diabetes mellitus, type 2. 8. History of cataracts. 9. Depression. 10.Multiple medical issues. RECOMMENDATIONS AND DISCUSSION: This 57-year-old gentleman presented with multiple complex medical issues, we will monitor the patient closely. I would recommend gentle diuresis. Monitor creatinine closely. Closely follow with multiple consultants including Pulmonary, Cardiology, and as well as Nephrology. 2D echo with Doppler and check serum procalcitonin and I would also recommend empiric antibiotics as well if the ProCal is positive. Prognosis guarded. Further recommendations to follow. See orders for further details. MMODL / IJN: [id number] /
[2023-08-13] MEDS: FUROSEMIDE 10 MG/ML 2 ML VIAL IV SCH ×2 (00:17→08:44)
[2023-08-13 06:29] LABS: Glucose,Whole Blood 150 mg/dL (70-110)
[2023-08-13] MEDS: INSULIN ASPART (NovoLOG) 100 UNIT/ML VIAL SQ SCH ×7 (06:31→21:35)
[2023-08-13] MEDS: ATORVASTATIN 10 MG TAB PO SCH (08:43)
[2023-08-13] MEDS: TAMSULOSIN 0.4 MG CAP.ER.24H PO SCH (08:44)
[2023-08-13] MEDS: lamoTRIgine 100 MG TAB PO SCH (08:44)
[2023-08-13] MEDS: HEPARIN SODIUM,PORCINE 5,000 UNIT/ML 1 ML VIAL SQ SCH ×2 (08:44→21:37)
[2023-08-13 08:48] LABS: Basophils # (A) 0.03 X 10*3/uL (0.00-0.10); Basophils % (A) 0.6 %; Eosinophils # (A) 0.11 X 10*3/uL (0.04-0.35); Eosinophils % (A) 2.2 %; HCT 32.9 % (39.6-50.0); HGB 10.2 g/dL (13.0-17.0); Lymphocytes # (A) 0.75 X 10*3/uL (0.90-5.00); Lymphocytes % (A) 15.2 %; MCH 26.1 pg (27.0-32.0); MCV 84.1 FL (80.0-97.0); Mean Platelet Volume 9.9 FL (9.5-12.2); Monocytes # (A) 0.41 X 10*3/uL (0.20-1.00); Monocytes % (A) 8.3 %; NRBC Per 100 WBC 0 X 10*3/uL (0.00-0.01); Neutrophils # (A) 3.63 X 10*3/uL (1.80-7.70); Neutrophils % (A) 73.3 %; Platelet Count 125 X 10*3/uL (140-440); RBC 3.91 X 10*6/uL (4.40-5.60); RDW 16.7 % (11.5-14.5); WBC 4.95 X 10*3/uL (4.50-10.00)
[2023-08-13 08:49] LABS: BUN/Creat Ratio 17.85 Ratio (12.00-20.00); Blood Urea Nitrogen 48.2 mg/dL (9.0-27.0); Calcium 9.1 mg/dL (8.7-10.3); Carbon Dioxide 19.4 mmol/L (21.6-31.8); Chloride 104 mmol/L (96-109); Glucose 134 mg/dL (70-110); Potassium 4.7 mmol/L (3.5-5.5); Sodium 135 mmol/L (135-145)
--- NOTE | 2023-08-13 08:51 | P.CONS ---
History of Present Illness - Reason for Consult Consult date: 08/12/23 Pneumonia Requesting physician: Yandy Martínez - Chief Complaint Increasing swelling to the scrotal and lower extremity x days - History of Present Illness Patient is a 57-year-old male with a past medical history significant for diabetes mellitus depression, apparently the patient has been smoking a lot of marijuana lately, presenting to the hospital for confusion and sleeping a lot at the patient developed increasing swelling to the lower extremity and scrotal area and mention has not been taking his insulin as advised patient denies having any fever or any chills and no fever was recorded on presentation to the hospital patient denies having any URI symptoms no chest pain no shortness of breath occasional dry cough no nausea no vomiting no abdominal pain or any diarrhea, patient on presentation to the hospital was afebrile he was not tachycardic hypotensive or hypoxic patient did have white count of 5.2 did have elevated BUN and creatinine liver enzymes are normal procalcitonin normal urine has been negative serum acetone was negative blood culture negative patient did have a scrotal ultrasound no acute testicular abnormality per ultrasound chest x-ray concerning for right midlung pneumonia as reported by the radiologist patient was started on Rocephin and Zithromax subsequent discontinued by pulmonary infectious disease was consulted for further management of antibiotic therapy Review of Systems Positive point and negatives has been mentioned in the HPI, complete review of systems was performed and all other systems are negative Past Medical History Past Medical History: Diabetes Mellitus Additional Past Medical History / Comment(s): cataracts History of Any Multi-Drug Resistant Organisms: None Reported Past Surgical History: Adenoidectomy Past Psychological History: Depression Smoking Status: Vaper Past Alcohol Use History: Occasional Past Drug Use History: Marijuana Medications and Allergies Home Medications Medication Instructions Recorded Confirmed Type Dulaglutide [Trulicity] 1.5 mg SQ FR 02/19/23 08/11/23 History Simvastatin [Zocor] 20 mg PO DAILY 02/19/23 08/11/23 History Albuterol Sulfate [Albuterol 2 puff PO RT-Q6H PRN 08/11/23 08/11/23 History Sulfate Hfa] Insulin Lispro [Admelog Solostar] 5 units SQ TID-W/MEALS 08/11/23 08/11/23 History Lamictal Starter Pack 1 dose PO DIRECTED 08/11/23 08/11/23 History Tamsulosin HCl [Flomax] 0.4 mg PO DAILY 08/11/23 08/11/23 History ALPRAZolam [Xanax] 0.25 mg PO TID PRN #6 tab 08/21/23 Rx Acetaminophen Tab [Tylenol] 650 mg PO Q6HR PRN tab 08/21/23 Rx Bumetanide [BUMEX] 1 mg PO BID@0900,1600 #60 tab 08/21/23 Rx Midodrine [ProAmatine] 5 mg PO AC-TID PRN #60 tab 08/21/23 Rx Nystatin 100,000 Unit/gm Powd 1 applic TOPICAL BID #1 each 08/21/23 Rx [Mycostatin Powder] Potassium Chloride [K-Tab ER] 20 meq PO DAILY 30 Days #30 tab 08/21/23 Rx carvediloL [Coreg] 3.125 mg PO BID-W/MEALS 30 Days 08/21/23 Rx #60 tab lamoTRIgine [LaMICtal] 100 mg PO DAILY 30 Days #30 each 08/21/23 08/11/23 Rx polyethylene glycoL 3350 [Miralax] 17 gm PO DAILY PRN packet 08/21/23 Rx Allergies Allergy/AdvReac Type Severity Reaction Status Date / Time Penicillins Allergy Rash/Hives Verified 08/11/23 21:38 Sulfa (Sulfonamide Allergy Rash/Hives Verified 08/11/23 21:38 Antibiotics) Physical Exam Vitals: Vital Signs Temp Pulse Resp BP Pulse Ox 08/12/23 10:59 97.5 F L 92 18 94/65 98 08/12/23 08:56 97.6 F 91 16 104/66 98 08/12/23 01:43 84 16 95/79 97 08/11/23 23:35 89 16 111/79 97 08/11/23 21:29 92 16 116/88 97 08/11/23 20:44 98 18 125/73 97 08/11/23 19:34 97.9 F 94 18 97/84 97 Intake and Output 08/11/23 08/12/23 08/12/23 22:59 06:59 14:59 Output Total 800 150 Balance -800 -150 Output: Urine 800 150 Uretheral (Reed) 800 150 Other: Weight 108.862 kg GENERAL DESCRIPTION: Middle-aged male lying in bed, no distress. No tachypnea or accessory muscle of respiration use. HEENT: Shows Pallor , no scleral icterus. Oral mucous membrane is dry. No pharyngeal erythema or thrush NECK: Trachea central, no thyromegaly. LUNGS: Unlabored breathing. Decreased breath sound the base HEART: S1, S2, regular rate and rhythm. No loud murmur ABDOMEN: Soft, no tenderness , guarding or rigidity, no organomegaly EXTREMITIES: Diffuse swelling to bilateral lower extremity SKIN: No rash, no masses palpable. NEUROLOGICAL: The patient is awake, alert, oriented x3, mood and affect normal. Results CBC & Chem 7: 08/19/23 08:39 08/21/23 07:50 Labs: Abnormal Lab Results - Last 24 Hours (Table) 08/11/23 08/11/23 08/11/23 Range/Units 19:45 19:55 19:55 RBC 4.19 L (4.30-5.90) m/uL Hgb 11.3 L (13.0-17.5) gm/dL Hct 36.2 L (39.0-53.0) % MCHC (31.0-37.0) g/dL RDW 15.7 H (11.5-15.5) % Plt Count (150-450) k/uL Lymphocytes # (1.0-4.8) k/uL Sodium 134 L (137-145) mmol/L Carbon Dioxide 17 L (22-30) mmol/L BUN 45 H (9-20) mg/dL Creatinine 2.48 H (0.66-1.25) mg/dL Glucose 124 H (74-99) mg/dL POC Glucose (mg/dL) 134 H (70-110) mg/dL Urine Protein (Negative) Urine WBC (0-5) /hpf Urine Bacteria (None) /hpf Hyaline Casts (0-2) /lpf Urine Mucus (None) /hpf 08/11/23 08/12/23 08/12/23 Range/Units 19:55 09:01 09:01 RBC 4.14 L (4.30-5.90) m/uL Hgb 11.0 L (13.0-17.5) gm/dL Hct 35.7 L (39.0-53.0) % MCHC 30.8 L (31.0-37.0) g/dL RDW 15.6 H (11.5-15.5) % Plt Count 146 L (150-450) k/uL Lymphocytes # 0.9 L (1.0-4.8) k/uL Sodium 135 L (137-145) mmol/L Carbon Dioxide 18 L (22-30) mmol/L BUN 46 H (9-20) mg/dL Creatinine 2.36 H (0.66-1.25) mg/dL Glucose 112 H (74-99) mg/dL POC Glucose (mg/dL) (70-110) mg/dL Urine Protein 1+ H (Negative) Urine WBC 8 H (0-5) /hpf Urine Bacteria Rare H (None) /hpf Hyaline Casts 50 H (0-2) /lpf Urine Mucus Rare H (None) /hpf Assessment and Plan (1) Abnormal chest x-ray Status: Acute Code(s): R93.89 - ABNORMAL FINDINGS ON DX IMAGING OF OTH BODY STRUCTURES SNOMED Code(s): 263147479 Plan: 1patient presented to hospital with confusion weakness sleeping a lot and apparently has been smoking a lot of marijuana recently patient also having increasing swelling to the scrotum and the lower extremity possibly component of fluid overload and did have abnormal chest x-ray concerning for pneumonia more likely fluid overload as the patient is clinically not behaving as pneumonia with no fever elevated white count and did have normal procalcitonin 2patient with multiple antibiotic ALLERGIES that would limit the number of antibiotic safe to use 3agree with discontinuation of antibiotic and the patient will be monitored closely off antibiotic therapy We will follow on clinical condition and cultures to further adjust medication if needed Thank you for this consultation we will follow the patient along with you Dictation was produced using [employer] dictation software. please excuse any grammatical, word or spelling errors. Time with Patient: Greater than 30
--- NOTE | 2023-08-13 12:15 | P.NPCON ---
History of Present Illness - Reason for Consult acute renal failure - History of Present Illness Patient is a 57-year-old male with history of type 2 diabetes, CHF, cardiomyopathy with EF of 15-20%. Admitted to the hospital with complaints of increased shortness of breath. Patient has also noticed decreased urine output and increased lower extremity swelling for the past 1 month or so. Serum creatinine was 2.4 on admission and increased to 2.7 today. Previous creatinine 1.59 on 04/07/2023 and 1.3 on 03/31/2023. Blood pressure is low with systolic in the 90s Chest x-ray shows right mid lung infiltrate with right pleural effusion. No history of fever or cough. Reed catheter was placed yesterday. It is unclear as to how much urine was obtained on initial Reed catheter placement.\ No obstruction noted on renal ultrasound. Review of Systems As per HPI 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 Past Anesthesia/Blood Transfusion Reactions: No Reported Reaction Past Psychological History: Depression Smoking Status: Vaper Past Alcohol Use History: Occasional Past Drug Use History: Marijuana Medications and Allergies Home Medications Medication Instructions Recorded Confirmed Type Dulaglutide [Trulicity] 1.5 mg SQ FR 02/19/23 08/11/23 History Simvastatin [Zocor] 20 mg PO DAILY 02/19/23 08/11/23 History Albuterol Sulfate [Albuterol 2 puff PO RT-Q6H PRN 08/11/23 08/11/23 History Sulfate Hfa] Insulin Lispro [Admelog Solostar] 5 units SQ TID-W/MEALS 08/11/23 08/11/23 History Lamictal Starter Pack 1 dose PO DIRECTED 08/11/23 08/11/23 History Tamsulosin HCl [Flomax] 0.4 mg PO DAILY 08/11/23 08/11/23 History lamoTRIgine [LaMICtal] 100 mg PO DIRECTED 08/11/23 08/11/23 History Allergies Allergy/AdvReac Type Severity Reaction Status Date / Time Penicillins Allergy Rash/Hives Verified 08/11/23 21:38 Sulfa (Sulfonamide Allergy Rash/Hives Verified 08/11/23 21:38 Antibiotics) Physical Exam Vitals: Vital Signs Temp Pulse Pulse Resp BP BP Pulse Ox 08/13/23 08:00 96 16 08/13/23 07:00 97.8 F 96 16 112/77 97 08/13/23 02:00 97.5 F L 94 16 101/66 97 08/12/23 23:15 99/75 08/12/23 19:12 97.7 F 92 18 94/68 99 08/12/23 15:08 97.9 F 93 16 101/69 99 08/12/23 13:40 97 18 104/75 99 Intake and Output 08/12/23 08/13/23 08/13/23 22:59 06:59 14:59 Output Total 480 500 Balance -480 -500 Output: Urine 480 500 Other: Voiding Method Indwelling Catheter Indwelling Catheter Indwelling Catheter # Bowel Movements 1 Weight 108.862 kg Patient is awake, comfortable, no acute distress Examination of the heart S1 and S2 Examination of the lungs decreased breath sounds at the bases Abdomen is soft distended nontender, obese Examination lower extremities shows edema 2+ bilaterally [employer] exam grossly intact Results - Lab Results Most recent lab results Calcium 9.1 mg/dL (8.7-10.3) 08/13/23 06:09 Magnesium 2.1 mg/dL (1.6-2.3) 08/11/23 19:55 08/13/23 06:09 08/13/23 06:09 Assessment and Plan Assessment: 1. Acute kidney injury ATN, nonoliguric and component of cardiorenal syndrome. Blood pressure remains low with worsening renal function. Patient will benefit from inotropic agent given his low ejection fraction. No evidence of obstruction on ultrasound. UA is quite benign with 1+ protein. 2. Previous episodes of acute kidney injury in March 2023. 3. Volume overload with severe scrotal edema 4. Acute on chronic systolic CHF with EF of 15-20%. Plan: Increase dose of Lasix I will discuss with cardiology regarding adding dobutamine. Repeat labs in a.m. Continue with Reed catheter Accurate I's and O's Thank you for the consultation. We will continue to follow the patient with you during his hospitalization.
--- NOTE | 2023-08-13 12:30 | PN ---
PROGRESS NOTE DATE OF SERVICE: 08/13/2023 SUBJECTIVE: This is a 57-year-old gentleman, who was admitted with generalized edema as well as ascites and possible fluid overload, also acute renal failure, multifactorial. The patient also had history of CHF also. Creatinine is 2.7 today. The patient is on low dose of diuretics. Multiple consultants including Nephrology and Cardiology are following the patient closely. No chest pain. No palpitation. Infectious Disease had seen the patient, recommended discontinue the antibiotic and continued monitoring. 2D echo with Doppler showed diffuse global hypokinesia. No chest pain. No palpitation. PAST MEDICAL HISTORY: Reviewed. REVIEW OF SYSTEMS: 14-point review is negative except as mentioned earlier. CURRENT MEDICATIONS: Reviewed include IV Lasix, rest of the medications noted. PHYSICAL EXAMINATION: VITAL SIGNS: Pulse is 94, blood pressure 101/66, respirations 16. HEENT: Conjunctivae normal. NECK: No jugular venous distention. CARDIOVASCULAR: S1, S2. RESPIRATIONS: Breath sounds diminished at the bases. A few scattered rhonchi. ABDOMEN: Soft. LEGS: Bilateral leg edema. NERVOUS SYSTEM: Diffusely weak. LABORATORY DATA: Reviewed. ASSESSMENT: 1. Generalized edema as well as scrotal edema and ascites with possible fluid overload. 2. Congestive heart failure acute exacerbation, acute on chronic systolic dysfunction. 3. Acute renal failure, multifactorial, possibly. 4. Possible cardiomyopathy. 5. Right pleural effusion. 6. Ascites. 7. Pneumonia, unlikely per ID. 8. Diabetes mellitus, type 2. 9. History of cataracts. 10.Depression. 11.Multiple medical issues. RECOMMENDATIONS: Recommended to continue current medications. Continue symptomatic treatment, otherwise we will continue to monitor. The patient's overall prognosis extremely guarded because of the combination of CHF as well as renal failure also. I would also recommend a chest x-ray and continue to monitor. Further recommendations to follow. MMODL / IJN: [id number] /
[2023-08-13 12:32] LABS: Glucose,Whole Blood 271 mg/dL (70-110)
[2023-08-13] MEDS: carvediloL 3.125 MG TAB PO SCH ×2 (12:57→17:49)
--- NOTE | 2023-08-13 13:58 | P.PN ---
Subjective Progress Note Date: 08/13/23 57-year-old male who presents to the emergency department, on August 11. He was brought in by EMS. The patient essentially presented with lower extremity edema, and scrotal edema. The patient denied any respiratory issues including shortness of breath, cough, wheezing, chest tightness, or phlegm production. The patient apparently is been smoking a lot of marijuana recently, and has not been taking his insulin recently. He seems rather strange to me, and that his history was a bit disoriented. Nonetheless, he did have scrotal edema, and lower extremity edema. He apparently has a history of asthma, which is mild, diabetes, hyperlipidemia, hypertension, and BPH. White count 5.6, hemoglobin 11 , hematocrit 35.7, and platelet count 146,000. Coagulation studies were normal. Sodium 135, potassium 5, chlorides 105, CO2 18, anion gap 12, BUN 46, creatinine 2.36. Glucose 112. BNP was 7080. Pro-calcitonin level was 0.07. The patient will need an echocardiogram. The patient's renal ultrasound appeared normal. In our opinion, the chest x-ray was most consistent with fluid overload, and not pneumonia. The normal pro-calcitonin level and elevated N- terminal proBNP, supports that notion. The patient is seen today 08/13/2023 in follow-up on the regular medical floor. He is currently resting comfortably in bed. Awake and alert in no acute distress. He is maintaining good O2 saturations in the mid 90s on room air. He is afebrile. Hemodynamically stable. Continues with scrotal, abdominal and lower extremity edema. Echocardiogram revealed diffuse global hypokinesis with severe left ventricular systolic function and an ejection fraction of 15-20%. Blood cultures revealed no growth. White count 4.9. Hemoccult and 10.2. Platelets 125. Sodium 135. Potassium 4.7. Bicarb 19. BUN 48. Creatinine 2.7. Glucose 134. Hemoglobin A1c 6.8. Procalcitonin was negative at 0.08. Antibiotics will be discontinued. He is continued on IV diuretics. Objective - Vital Signs Vital signs: Vital Signs Temp 97.8 F 08/13/23 07:00 Pulse 96 08/13/23 08:00 Resp 16 08/13/23 08:00 BP 112/77 08/13/23 07:00 Pulse Ox 97 08/13/23 12:31 FiO2 21 08/13/23 12:31 Intake & Output 08/12/23 08/13/23 08/13/23 18:59 06:59 18:59 Output Total 480 500 Balance -480 -500 Weight 108.862 kg Output: Urine 480 500 Other: Voiding Method Indwelling Catheter Indwelling Catheter Indwelling Catheter # Bowel Movements 1 - Exam GENERAL EXAM: Alert, pleasant 57-year-old male, on room air, fairly comfortable in no apparent distress. HEAD: Normocephalic. EYES: Normal reaction of pupils, equal size. NOSE: Clear with pink turbinates. THROAT: No erythema or exudates. NECK: No masses, no JVD. CHEST: No chest wall deformity. LUNGS: Equal air entry with basilar crackles right greater than left. CVS: S1 and S2 normal with no audible murmur, regular rhythm. ABDOMEN: No hepatosplenomegaly, normal bowel sounds, no guarding or rigidity. SPINE: No scoliosis or deformity SKIN: No rashes CENTRAL NERVOUS SYSTEM: No focal deficits, tone is normal in all 4 extremities. EXTREMITIES: There is scrotal, lower extremity edema. No clubbing, no cyanosis. Peripheral pulses are intact. - Labs CBC & Chem 7: 08/13/23 06:09 08/13/23 06:09 Labs: Abnormal Lab Results - Last 24 Hours (Table) 08/12/23 08/13/23 08/13/23 Range/Units 17:46 06:09 06:09 RBC 3.91 L (4.40-5.60) X 10*6/uL Hgb 10.2 L (13.0-17.0) g/dL Hct 32.9 L (39.6-50.0) % MCH 26.1 L (27.0-32.0) pg MCHC 31.0 L (32.0-37.0) g/dL RDW 16.7 H (11.5-14.5) % Plt Count 125 L (140-440) X 10*3/uL Lymphocytes # 0.75 L (0.90-5.00) X 10*3/uL Carbon Dioxide (21.6-31.8) mmol/L BUN (9.0-27.0) mg/dL Creatinine (0.6-1.5) mg/dL Est GFR (CKD-EPI) (>=60) Glucose (70-110) mg/dL POC Glucose (mg/dL) 217 H (70-110) mg/dL Hemoglobin A1c 6.8 H (<=6.0) % 08/13/23 08/13/23 08/13/23 Range/Units 06:09 06:25 12:31 RBC (4.40-5.60) X 10*6/uL Hgb (13.0-17.0) g/dL Hct (39.6-50.0) % MCH (27.0-32.0) pg MCHC (32.0-37.0) g/dL RDW (11.5-14.5) % Plt Count (140-440) X 10*3/uL Lymphocytes # (0.90-5.00) X 10*3/uL Carbon Dioxide 19.4 L (21.6-31.8) mmol/L BUN 48.2 H (9.0-27.0) mg/dL Creatinine 2.7 H (0.6-1.5) mg/dL Est GFR (CKD-EPI) 27 L (>=60) Glucose 134 H (70-110) mg/dL POC Glucose (mg/dL) 150 H 271 H (70-110) mg/dL Hemoglobin A1c (<=6.0) % Microbiology - Last 24 Hours (Table) 08/11/23 21:41 Blood Culture - Preliminary Blood 08/11/23 21:33 Blood Culture - Preliminary Blood Assessment and Plan Assessment: Acute exacerbation of systolic congestive heart failure in a patient found to have an ejection fraction of 15-20% with severe global hypokinesia Fluid overload state, with scrotal edema, lower extremity edema, and CHF s econdary to above Doubt pneumonia. Pro-calcitonin negative. Antibiotics discontinued Acute kidney injury History of diabetes mellitus History of hyperlipidemia History of hypertension History of BPH History of mild chronic bronchial asthma History of vaping and marijuana use Plan: The patient was seen and evaluated Echocardiogram, labs and medications reviewed Nephrology consult Nephrology following Discontinue antibiotics Currently stable and on room air This patient was seen independently by the pulmonary nurse practitioner addressing pulmonary issues I have personally seen and examined the patient, performed the documentation and the assessment and plan as written. Number of minutes spent on the visit: 24.
--- NOTE | 2023-08-13 14:34 | P.CRDCN ---
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 He has a past medical history of smoking marijuana, diabetes. We have been asked to evaluate the patient for cardiomyopathy. Patient's main concern is that he states he has been vaping Reema a lot lately. He has developed shortness of breath for at least the last month. He is not sure when his breathing was normal but maybe a couple months ago. He states he has filed for disability. Regarding alcohol, he states he stopped drinking 6 months ago. Patient is not clear how much he was drinking at home other than a couple 12 cans a couple times a week. Patient was admitted to the hospital for lower extremity edema, scrotal edema, acute kidney injury and seen by pulmonary medicine and nephrology. He has been started on IV Lasix by nephrology of 40 mg every 12 hours. EKG sinus rhythm, incomplete right bundle branch block Chest x-ray: 08/12 right midlung pneumonia, small right pleural effusion. WBC 4.9, hemoglobin 10.2, platelet count 125. Sodium 135, potassium 4.7, BUN 40 creatinine 2.7. Magnesium 2.1. Hemoglobin A1c 6.8. Liver function tests are normal. ProBNP 7080. Pro-calcitonin 0.08. Home cardiac medications: Zocor 20 mg daily. Echocardiogram performed 08/12/2023 reveals severe LV systolic dysfunction with EF of 15-20%, moderate mitral regurgitation, moderate tricuspid regurgitation. Review Of Systems: At the time of my exam: CONSTITUTIONAL: Denies fever or chills. CARDIOVASCULAR: Denies chest pain, Denies shortness of breath, no orthopnea, PND or palpitations. RESPIRATORY: Denies cough. GASTROINTESTINAL: Denies abdominal pain, diarrhea, constipation, nausea or vomiting. MUSCULOSKELETAL: Denies myalgias. NEUROLOGIC: Denies numbness, tingling or weakness. ENDOCRINE: Denies fatigue, weight change, polydipsia or polyurina. GENITOURINARY: Denies burning, hematuria or urgency with micturation. HEMATOLOGIC: Denies history of anemia or bleeding. Physical examination: Gen: This is a 57-year-old male in no acute distress. VS: reviewed HEENT: Head is atraumatic, normocephalic. Pupils equal, round. Sclerae is anicteric. NECK: Supple. No JVD. LUNGS: Few basilar crackles. No intercostal retractions. HEART: Regular rate and rhythm. No murmur. ABDOMEN: Soft No tenderness. EXTREMITIES: + pedal edema. No calf tenderness. NEUROLOGICAL: Patient is awake, alert and oriented x3. Assessment: Acute systolic heart failure Cardiomyopathy of unclear etiology Bicytopenia with anemia and thrombocytopenia Acute kidney injury Hyperlipidemia Hypertension Diabetes Vaping/marijuana Plan: Continue patient's home cardiac medication Start patient on Coreg 3.125 mg twice daily May start nitroglycerin tomorrow if blood pressure is stable Lasix per nephrology currently at 40 mg every 12 hours Once kidney function is improved, patient will need to undergo cardiac catheterization or stress testing Patient may require AICD Plan for LifeVest prior to discharge. Further recommendations to follow based upon clinical course Thank you kindly for this consultation. Nurse practitioner note has been reviewed, I agree with documented findings and plan of care. Patient was seen and examined. 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 Past Anesthesia/Blood Transfusion Reactions: No Reported Reaction Past Psychological History: Depression Smoking Status: Vaper Past Alcohol Use History: Occasional Past Drug Use History: Marijuana Medications and Allergies Home Medications Medication Instructions Recorded Confirmed Type Dulaglutide [Trulicity] 1.5 mg SQ FR 02/19/23 08/11/23 History Simvastatin [Zocor] 20 mg PO DAILY 02/19/23 08/11/23 History Albuterol Sulfate [Albuterol 2 puff PO RT-Q6H PRN 08/11/23 08/11/23 History Sulfate Hfa] Insulin Lispro [Admelog Solostar] 5 units SQ TID-W/MEALS 08/11/23 08/11/23 History Lamictal Starter Pack 1 dose PO DIRECTED 08/11/23 08/11/23 History Tamsulosin HCl [Flomax] 0.4 mg PO DAILY 08/11/23 08/11/23 History lamoTRIgine [LaMICtal] 100 mg PO DIRECTED 08/11/23 08/11/23 History Allergies Allergy/AdvReac Type Severity Reaction Status Date / Time Penicillins Allergy Rash/Hives Verified 08/11/23 21:38 Sulfa (Sulfonamide Allergy Rash/Hives Verified 08/11/23 21:38 Antibiotics) Physical Exam Vitals: Vital Signs Temp Pulse Pulse Resp BP BP Pulse Ox 08/13/23 07:00 97.8 F 96 16 112/77 97 08/13/23 02:00 97.5 F L 94 16 101/66 97 08/12/23 23:15 99/75 08/12/23 19:12 97.7 F 92 18 94/68 99 08/12/23 15:08 97.9 F 93 16 101/69 99 08/12/23 13:40 97 18 104/75 99 Intake and Output 08/12/23 08/13/23 08/13/23 22:59 06:59 14:59 Output Total 480 500 Balance -480 -500 Output: Urine 480 500 Other: Voiding Method Indwelling Catheter Indwelling Catheter # Bowel Movements 1 Weight 108.862 kg Results 08/13/23 06:09 08/13/23 06:09 CBC 08/13/23 Range/Units 06:09 WBC 4.95 (4.50-10.00) X 10*3/uL RBC 3.91 L (4.40-5.60) X 10*6/uL Hgb 10.2 L (13.0-17.0) g/dL Hct 32.9 L (39.6-50.0) % Plt Count 125 L (140-440) X 10*3/uL Comprehensive Metabolic Panel 08/13/23 Range/Units 06:09 Sodium 135 (135-145) mmol/L Potassium 4.7 (3.5-5.5) mmol/L Chloride 104 (96-109) mmol/L Carbon Dioxide 19.4 L (21.6-31.8) mmol/L BUN 48.2 H (9.0-27.0) mg/dL Creatinine 2.7 H (0.6-1.5) mg/dL Glucose 134 H (70-110) mg/dL Calcium 9.1 (8.7-10.3) mg/dL Current Medications Generic Name Dose Route Start Last Admin Trade Name Freq PRN Reason Stop Dose Admin Acetaminophen 650 mg 08/12/23 21:23 08/12/23 21:41 Acetaminophen Tab 325 Mg Tab PO 650 mg Q6HR PRN Administration Fever and/ or Pain Albuterol Sulfate 2.5 mg 08/12/23 12:14 Albuterol Nebulized 2.5 Mg/3 Ml INHALATION RT-Q6H PRN Shortness Of Breath Atorvastatin Calcium 10 mg 08/13/23 09:00 08/13/23 08:43 Atorvastatin 10 Mg Tab PO 10 mg DAILY ROSE Administration Dextrose/Water 25 ml 08/12/23 12:15 Dextrose 50% Syringe 50 Ml IVP PER PROTOCOL PRN Hypoglycemia Protocol Dextrose/Water 50 ml 08/12/23 12:15 Dextrose 50% Syringe 50 Ml IVP PER PROTOCOL PRN Hypoglycemia Protocol Furosemide 20 mg 08/12/23 12:15 08/13/23 08:44 Furosemide 10 Mg/Ml 2 Ml Vial IV 20 mg Q12HR ROSE Administration Heparin Sodium (Porcine) 5,000 unit 08/12/23 13:15 08/13/23 08:44 Heparin Sodium,Porcine 5,000 Unit/Ml 1 Ml Vial SQ 5,000 unit Q12HR ROSE Administration Insulin Aspart 0 unit 08/12/23 12:30 08/13/23 06:31 Insulin Aspart (Novolog) 100 Unit/Ml Vial SQ Not Given ACHS ROSE Protocol Insulin Aspart 5 unit 08/12/23 17:30 08/12/23 20:44 Insulin Aspart (Novolog) 100 Unit/Ml Vial SQ Not Given TID-W/MEALS [facility] Lamotrigine 100 mg 08/13/23 09:00 08/13/23 08:44 Lamotrigine 100 Mg Tab PO 100 mg DAILY ROSE Administration Miscellaneous Information 1 each 08/11/23 21:33 Pneumonia Protocol Utilized 1 Each Misc PO ONCE PRN Per Protocol Naloxone HCl 0.2 mg 08/11/23 21:33 Naloxone 0.4 Mg/Ml 1 Ml Vial IV Q2M PRN Opioid Reversal Non-Formulary Medication 1.5 mg 08/15/23 09:00 Dulaglutide [Trulicity] SQ FR ROSE Tamsulosin HCl 0.4 mg 08/12/23 12:45 08/13/23 08:44 Tamsulosin 0.4 Mg Cap.Er.24h PO 0.4 mg DAILY ROSE Administration Intake and Output 08/12/23 08/13/23 08/13/23 22:59 06:59 14:59 Output Total 480 500 Balance -480 -500 Output: Urine 480 500 Other: Voiding Method Indwelling Catheter Indwelling Catheter # Bowel Movements 1 Weight 108.862 kg 08/13/23 06:09 08/13/23 06:09
[2023-08-13 17:32] LABS: Glucose,Whole Blood 95 mg/dL (70-110)
[2023-08-13] MEDS ORDERED: polyethylene glycoL 3350 17 GM POWD.PACK PO PRN (17:53)
--- NOTE | 2023-08-13 17:57 | P.PN ---
Subjective Progress Note Date: 08/13/23 Principal diagnosis: Reason for follow-up is abnormal chest x-ray and question of pneumonia Patient is a 57-year-old male with a past medical history significant for diabetes mellitus depression, apparently the patient has been smoking a lot of marijuana lately, presenting to the hospital for confusion and sleeping a lot, patient noticed to have increasing swelling to the scrotal area and lower extremity and also have a chest x-ray concerning for possible right midlung pneumonia patient did have a normal white count and normal procalcitonin. On today's evaluation that is 08/13/2023, the patient denies having any fever or any chills, the patient is breathing comfortably on room air without need for supplemental oxygen denies any chest pain or shortness of breath no cough no nausea vomiting no abdominal pain no diarrhea still complaining of swelling to the scrotal and lower extremity . Patient did have white count of 4.95, creatinine is 2.7 procalcitonin was 0.08 blood cultures so far pending Objective - Vital Signs Vital signs: Vital Signs Temp 97.8 F 08/13/23 07:00 Pulse 96 08/13/23 08:00 Resp 16 08/13/23 08:00 BP 112/77 08/13/23 07:00 Pulse Ox 97 08/13/23 12:31 FiO2 21 08/13/23 12:31 Intake & Output 08/12/23 08/13/23 08/13/23 18:59 06:59 18:59 Output Total 480 500 Balance -480 -500 Weight 108.862 kg Output: Urine 480 500 Other: Voiding Method Indwelling Catheter Indwelling Catheter Indwelling Catheter # Bowel Movements 1 - Exam GENERAL DESCRIPTION: Middle-age male lying in bed in no distress RESPIRATORY SYSTEM: Unlabored breathing , decreased breath sounds at bases HEART: S1 S2 regular rate and rhythm , ABDOMEN: Soft , no tenderness EXTREMITIES: 2+ edema feet - Labs CBC & Chem 7: 08/13/23 06:09 08/13/23 06:09 Labs: Abnormal Lab Results - Last 24 Hours (Table) 08/12/23 08/12/23 08/13/23 Range/Units 13:34 17:46 06:09 RBC (4.40-5.60) X 10*6/uL Hgb (13.0-17.0) g/dL Hct (39.6-50.0) % MCH (27.0-32.0) pg MCHC (32.0-37.0) g/dL RDW (11.5-14.5) % Plt Count (140-440) X 10*3/uL Lymphocytes # (0.90-5.00) X 10*3/uL Carbon Dioxide (21.6-31.8) mmol/L BUN (9.0-27.0) mg/dL Creatinine (0.6-1.5) mg/dL Est GFR (CKD-EPI) (>=60) Glucose (70-110) mg/dL POC Glucose (mg/dL) 134 H 217 H (70-110) mg/dL Hemoglobin A1c 6.8 H (<=6.0) % 08/13/23 08/13/23 08/13/23 Range/Units 06:09 06:09 06:25 RBC 3.91 L (4.40-5.60) X 10*6/uL Hgb 10.2 L (13.0-17.0) g/dL Hct 32.9 L (39.6-50.0) % MCH 26.1 L (27.0-32.0) pg MCHC 31.0 L (32.0-37.0) g/dL RDW 16.7 H (11.5-14.5) % Plt Count 125 L (140-440) X 10*3/uL Lymphocytes # 0.75 L (0.90-5.00) X 10*3/uL Carbon Dioxide 19.4 L (21.6-31.8) mmol/L BUN 48.2 H (9.0-27.0) mg/dL Creatinine 2.7 H (0.6-1.5) mg/dL Est GFR (CKD-EPI) 27 L (>=60) Glucose 134 H (70-110) mg/dL POC Glucose (mg/dL) 150 H (70-110) mg/dL Hemoglobin A1c (<=6.0) % 08/13/23 Range/Units 12:31 RBC (4.40-5.60) X 10*6/uL Hgb (13.0-17.0) g/dL Hct (39.6-50.0) % MCH (27.0-32.0) pg MCHC (32.0-37.0) g/dL RDW (11.5-14.5) % Plt Count (140-440) X 10*3/uL Lymphocytes # (0.90-5.00) X 10*3/uL Carbon Dioxide (21.6-31.8) mmol/L BUN (9.0-27.0) mg/dL Creatinine (0.6-1.5) mg/dL Est GFR (CKD-EPI) (>=60) Glucose (70-110) mg/dL POC Glucose (mg/dL) 271 H (70-110) mg/dL Hemoglobin A1c (<=6.0) % Microbiology - Last 24 Hours (Table) 08/11/23 21:41 Blood Culture - Preliminary Blood 08/11/23 21:33 Blood Culture - Preliminary Blood Assessment and Plan (1) Abnormal chest x-ray Current Visit: Yes Status: Acute Code(s): R93.89 - ABNORMAL FINDINGS ON DX IMAGING OF OTH BODY STRUCTURES SNOMED Code(s): 319310987 Plan: 1patient presented to hospital with confusion weakness sleeping a lot and apparently has been smoking a lot of marijuana recently patient also having increasing swelling to the scrotum and the lower extremity possibly component of fluid overload and did have abnormal chest x-ray concerning for pneumonia more likely fluid overload as the patient is clinically not behaving as pneumonia with no fever elevated white count and did have normal procalcitonin 2patient with multiple antibiotic ALLERGIES that would limit the number of antibiotic safe to use 3patient seem to be doing better today and will monitor the patient closely off antibiotic at this point Dictation was produced using [employer] dictation software. please excuse any grammatical, word or spelling errors. Time with Patient: Less than 30
[2023-08-13 20:12] LABS: Glucose,Whole Blood 90 mg/dL (70-110)
[2023-08-13] MEDS: FUROSEMIDE 10 MG/ML 4 ML VIAL IV SCH (21:37)
[2023-08-14] MEDS: INSULIN ASPART (NovoLOG) 100 UNIT/ML VIAL SQ SCH ×8 (05:32→20:00)
[2023-08-14 05:33] LABS: Glucose,Whole Blood 118 mg/dL (70-110)
[2023-08-14] MEDS: carvediloL 3.125 MG TAB PO SCH ×2 (05:53→18:33)
[2023-08-14] MEDS: HEPARIN SODIUM,PORCINE 5,000 UNIT/ML 1 ML VIAL SQ SCH ×2 (08:57→20:05)
[2023-08-14] MEDS: TAMSULOSIN 0.4 MG CAP.ER.24H PO SCH (08:57)
[2023-08-14] MEDS: ATORVASTATIN 10 MG TAB PO SCH (08:57)
[2023-08-14] MEDS: lamoTRIgine 100 MG TAB PO SCH (08:57)
[2023-08-14 11:42] LABS: African American GFR (CKD) 30 (>60 ml/min/1.73 sqM); Anion Gap 13 mmol/L; Blood Urea Nitrogen 59 mg/dL (9-20); Calcium 8.8 mg/dL (8.4-10.2); Carbon Dioxide 20 mmol/L (22-30); Chloride 103 mmol/L (98-107); Glucose 138 mg/dL (74-99); Non-African American GFR(CKD) 26 (>60 ml/min/1.73 sqM); Potassium 4.7 mmol/L (3.5-5.1); Sodium 136 mmol/L (137-145)
[2023-08-14] MEDS: FUROSEMIDE 10 MG/ML 4 ML VIAL IV SCH ×2 (11:44→20:05)
[2023-08-14] MEDS ORDERED: MIDODRINE 5 MG TAB PO SCH (12:30)
[2023-08-14 12:31] LABS: Glucose,Whole Blood 146 mg/dL (70-110)
--- NOTE | 2023-08-14 13:03 | P.PN ---
Subjective Progress Note Date: 08/14/23 57-year-old male who presents to the emergency department, on August 11. He was brought in by EMS. The patient essentially presented with lower extremity edema, and scrotal edema. The patient denied any respiratory issues including shortness of breath, cough, wheezing, chest tightness, or phlegm production. The patient apparently is been smoking a lot of marijuana recently, and has not been taking his insulin recently. He seems rather strange to me, and that his history was a bit disoriented. Nonetheless, he did have scrotal edema, and lower extremity edema. He apparently has a history of asthma, which is mild, diabetes, hyperlipidemia, hypertension, and BPH. White count 5.6, hemoglobin 11 , hematocrit 35.7, and platelet count 146,000. Coagulation studies were normal. Sodium 135, potassium 5, chlorides 105, CO2 18, anion gap 12, BUN 46, creatinine 2.36. Glucose 112. BNP was 7080. Pro-calcitonin level was 0.07. The patient will need an echocardiogram. The patient's renal ultrasound appeared normal. In our opinion, the chest x-ray was most consistent with fluid overload, and not pneumonia. The normal pro-calcitonin level and elevated N- terminal proBNP, supports that notion. The patient is seen today 08/13/2023 in follow-up on the regular medical floor. He is currently resting comfortably in bed. Awake and alert in no acute distress. He is maintaining good O2 saturations in the mid 90s on room air. He is afebrile. Hemodynamically stable. Continues with scrotal, abdominal and lower extremity edema. Echocardiogram revealed diffuse global hypokinesis with severe left ventricular systolic function and an ejection fraction of 15-20%. Blood cultures revealed no growth. White count 4.9. Hemoccult and 10.2. Platelets 125. Sodium 135. Potassium 4.7. Bicarb 19. BUN 48. Creatinine 2.7. Glucose 134. Hemoglobin A1c 6.8. Procalcitonin was negative at 0.08. Antibiotics will be discontinued. He is continued on IV diuretics. The patient is seen today 08/14/2023 in follow-up on the regular medical floor. He is awake and alert in no acute distress. Resting comfortably in bed. He is maintaining O2 saturations in the 90s on room air. He's been afebrile. Hemodynamically stable. Sodium 136. Potassium 4.7. Bicarb 20. BUN 59. Creatinine 2.63. Glucose 138. He is continued on bronchodilators. Heparin for DVT prophylaxis. Remains on IV diuretics. -1.2 L balance. Objective - Vital Signs Vital signs: Vital Signs Temp 98.6 F 08/14/23 07:00 Pulse 92 08/14/23 07:00 Resp 16 08/14/23 09:00 BP 95/66 08/14/23 07:00 Pulse Ox 97 08/14/23 07:00 FiO2 21 08/13/23 12:31 Intake & Output 08/13/23 08/14/23 08/14/23 18:59 06:59 18:59 Intake Total 480 236 Output Total 600 1100 Balance -120 -1100 236 Intake: Oral 480 236 Output: Urine 600 1100 Other: Voiding Method Indwelling Catheter Indwelling Catheter Indwelling Catheter # Bowel Movements 0 - Exam GENERAL EXAM: Alert, pleasant 57-year-old male, on room air, in no apparent distress. HEAD: Normocephalic. EYES: Normal reaction of pupils, equal size. NOSE: Clear with pink turbinates. THROAT: No erythema or exudates. NECK: No masses, no JVD. CHEST: No chest wall deformity. LUNGS: Equal air entry with basilar crackles right greater than left. CVS: S1 and S2 normal with no audible murmur, regular rhythm. ABDOMEN: No hepatosplenomegaly, normal bowel sounds, no guarding or rigidity. SPINE: No scoliosis or deformity SKIN: No rashes CENTRAL NERVOUS SYSTEM: No focal deficits, tone is normal in all 4 extremities. EXTREMITIES: There is scrotal, lower extremity edema. No clubbing, no cyanosis. Peripheral pulses are intact. - Labs CBC & Chem 7: 08/13/23 06:09 08/14/23 11:14 Labs: Abnormal Lab Results - Last 24 Hours (Table) 08/14/23 08/14/23 08/14/23 Range/Units 05:31 11:14 12:26 Sodium 136 L (137-145) mmol/L Carbon Dioxide 20 L (22-30) mmol/L BUN 59 H (9-20) mg/dL Creatinine 2.67 H (0.66-1.25) mg/dL Glucose 138 H (74-99) mg/dL POC Glucose (mg/dL) 118 H 146 H (70-110) mg/dL Microbiology - Last 24 Hours (Table) 08/11/23 21:41 Blood Culture - Preliminary Blood 08/11/23 21:33 Blood Culture - Preliminary Blood Assessment and Plan Assessment: Acute exacerbation of systolic congestive heart failure in a patient found to have an ejection fraction of 15-20% with severe global hypokinesia Fluid overload state, with scrotal edema, lower extremity edema, and CHF secondary to above Doubt pneumonia. Pro-calcitonin negative. Antibiotics discontinued Acute kidney injury SPECT secondary to cardiorenal syndrome History of diabetes mellitus History of hyperlipidemia History of hypertension History of BPH History of mild chronic bronchial asthma History of vaping and marijuana use Plan: The patient was seen and evaluated Labs and medications reviewed Nephrology and cardiology following Plan is for a LifeVest and eventual AICD Currently stable and on room air This patient was seen independently by the pulmonary nurse practitioner addressing pulmonary issues I have personally seen and examined the patient, performed the documentation and the assessment and plan as written. Number of minutes spent on the visit: 22.
--- NOTE | 2023-08-14 13:13 | P.PN ---
Subjective Patient is seen for follow-up for acute kidney injury and volume overload. Blood pressure has been low. Started on midodrine. Currently being diuresed. Lasix is at 40 mg every 12 hours. Serum creatinine staying at 2.7-2.6 mg/dL. Previous creatinine 1.3-1.5 mg/dL on 04/07/2023 24 hour urine output at 1.7 L Objective - Vital Signs Vital signs: Vital Signs Temp 98.6 F 08/14/23 07:00 Pulse 92 08/14/23 07:00 Resp 16 08/14/23 09:00 BP 95/66 08/14/23 07:00 Pulse Ox 97 08/14/23 07:00 FiO2 21 08/13/23 12:31 Intake & Output 08/13/23 08/14/23 08/14/23 18:59 06:59 18:59 Intake Total 480 236 Output Total 600 1100 Balance -120 -1100 236 Intake: Oral 480 236 Output: Urine 600 1100 Other: Voiding Method Indwelling Catheter Indwelling Catheter Indwelling Catheter # Bowel Movements 0 - Exam Patient is awake, comfortable, no acute distress Examination of the heart S1 and S2 Examination of the lungs decreased breath sounds at the bases Abdomen is soft distended nontender, obese Examination lower extremities shows edema 2+ bilaterally TOBACCO DIPPER exam grossly intact - Labs CBC & Chem 7: 08/13/23 06:09 08/14/23 11:14 Labs: Abnormal Lab Results - Last 24 Hours (Table) 08/14/23 08/14/23 08/14/23 Range/Units 05:31 11:14 12:26 Sodium 136 L (137-145) mmol/L Carbon Dioxide 20 L (22-30) mmol/L BUN 59 H (9-20) mg/dL Creatinine 2.67 H (0.66-1.25) mg/dL Glucose 138 H (74-99) mg/dL POC Glucose (mg/dL) 118 H 146 H (70-110) mg/dL Microbiology - Last 24 Hours (Table) 08/11/23 21:41 Blood Culture - Preliminary Blood 08/11/23 21:33 Blood Culture - Preliminary Blood Assessment and Plan Assessment: 1. Acute kidney injury ATN, nonoliguric and component of cardiorenal syndrome. Blood pressure remains low with worsening renal function. Patient will benefit from inotropic agent given his low ejection fraction. No evidence of obstruction on ultrasound. UA is quite benign with 1+ protein. 2. Previous episodes of acute kidney injury in March 2023. 3. Volume overload with severe scrotal edema 4. Acute on chronic systolic CHF with EF of 15-20%. Plan: Continue with Lasix Increase midodrine I will discuss with cardiology regarding adding dobutamine. Repeat labs in a.m. Continue with Reed catheter Accurate I's and O's
--- NOTE | 2023-08-14 13:32 | P.PN ---
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 He has a past medical history of smoking marijuana, diabetes. We have been asked to evaluate the patient for cardiomyopathy. Patient's main concern is that he states he has been vaping Reema a lot lately. He has developed shortness of breath for at least the last month. He is not sure when his breathing was normal but maybe a couple months ago. He states he has filed for disability. Regarding alcohol, he states he stopped drinking 6 months ago. Patient is not clear how much he was drinking at home other than a couple 12 cans a couple times a week. Patient was admitted to the hospital for lower extremity edema, scrotal edema, acute kidney injury and seen by pulmonary medicine and nephrology. He has been started on IV Lasix by nephrology of 40 mg every 12 hours. EKG sinus rhythm, incomplete right bundle branch block Chest x-ray: 08/12 right midlung pneumonia, small right pleural effusion. WBC 4.9, hemoglobin 10.2, platelet count 125. Sodium 135, potassium 4.7, BUN 40 creatinine 2.7. Magnesium 2.1. Hemoglobin A1c 6.8. Liver function tests are normal. ProBNP 7080. Pro-calcitonin 0.08. Home cardiac medications: Zocor 20 mg daily. Echocardiogram performed 08/12/2023 reveals severe LV systolic dysfunction with EF of 15-20%, moderate mitral regurgitation, moderate tricuspid regurgitation. 08/14 Patient had episode of chest pain this morning. He feels that it was related to a panic attack. He states that shortness of breath is improving he is able to lay flat. Lower extremity edema is improving but he states he still has scrotal edema. Blood pressure is lower today 90/60. Physical examination: Gen: This is a 57-year-old male in no acute distress. VS: reviewed HEENT: Head is atraumatic, normocephalic. Pupils equal, round. Sclerae is anicteric. NECK: Supple. No JVD. LUNGS: Few basilar crackles. No intercostal retractions. HEART: Regular rate and rhythm. No murmur. ABDOMEN: Soft No tenderness. EXTREMITIES: + pedal edema. No calf tenderness. NEUROLOGICAL: Patient is awake, alert and oriented x3. Assessment: Acute systolic heart failure Cardiomyopathy of unclear etiology Bicytopenia with anemia and thrombocytopenia Acute kidney injury Hyperlipidemia Hypertension Diabetes Vaping/marijuana Plan: Continue patient's home cardiac medication Continue patient on Coreg 3.125 mg twice daily Start patient on midodrine 2.5 mg 3 times daily Lasix per nephrology currently at 40 mg every 12 hours Once kidney function is improved, patient will need to undergo cardiac catheterization or stress testing as an outpatient Patient may require AICD Plan for LifeVest prior to discharge. Further recommendations to follow based upon clinical course Nurse practitioner note has been reviewed, I agree with documented findings and plan of care. Patient was seen and examined. Objective - Vital Signs Vital signs: Vital Signs Temp 98.6 F 08/14/23 07:00 Pulse 92 08/14/23 07:00 Resp 16 08/14/23 09:00 BP 95/66 08/14/23 07:00 Pulse Ox 97 08/14/23 07:00 FiO2 21 08/13/23 12:31 Intake & Output 08/13/23 08/14/23 08/14/23 18:59 06:59 18:59 Intake Total 480 Output Total 600 1100 Balance -120 -1100 Intake: Oral 480 Output: Urine 600 1100 Other: Voiding Method Indwelling Catheter Indwelling Catheter Indwelling Catheter # Bowel Movements 0 - Labs CBC & Chem 7: 08/13/23 06:09 08/14/23 11:14 Labs: Abnormal Lab Results - Last 24 Hours (Table) 08/13/23 08/14/23 Range/Units 12:31 05:31 POC Glucose (mg/dL) 271 H 118 H (70-110) mg/dL Microbiology - Last 24 Hours (Table) 08/11/23 21:41 Blood Culture - Preliminary Blood 08/11/23 21:33 Blood Culture - Preliminary Blood
[2023-08-14] MEDS: IOPAMIDOL CONTRAST (ORAL USE) VIAL PO PRN ×2 (14:05→15:26)
--- NOTE | 2023-08-14 16:06 | XR ---
EXAMINATION TYPE: XR chest 1V portable DATE OF EXAM: 08/14/2023 COMPARISON: 08/12/2023 INDICATION: CHF TECHNIQUE: Single frontal view of the chest is obtained. FINDINGS: The heart size is normal. The pulmonary vasculature is normal. Right lower lobe infiltrate is present. Small right pleural effusion is likely present. Findings are worse interval IMPRESSION: 1. Worsening right lower lobe infiltrate and pleural effusion.
[2023-08-14 16:10] LABS: Glucose,Whole Blood 140 mg/dL (70-110)
[2023-08-14] MEDS: MIDODRINE 5 MG TAB PO SCH (18:33)
--- NOTE | 2023-08-14 19:07 | CT ---
EXAMINATION TYPE: CT abdomen pelvis wo con CT DLP: 1698.4 mGycm, Automated exposure control for dose reduction was used. DATE OF EXAM: 08/14/2023 3:56 PM COMPARISON: Same day chest x-ray CLINICAL INDICATION:Male, 57 years old with history of ascites??; Possible ascites, swollen scrotum. Oral contrast only. TECHNIQUE: Axial CT of the abdomen and pelvis. Sagittal and coronal reformats were created on a [employer] workstation. Contrast used: mL of , (none if empty) Oral contrast used: with Oral Contrast (none if empty) FINDINGS: Exam is limited without contrast. LOWER CHEST: Large right and moderate left pleural effusion. Bibasilar atelectasis, greater on the ri ght. Heart is mildly enlarged with partially seen moderate coronary artery calcifications. Trace dale cardial fluid. Small nodular density likely lymph node in the right anterior pericardial fat. ABDOMEN LIVER: Cirrhotic morphology. GALLBLADDER AND BILE DUCTS: Gallbladder appears present and most contracted. No biliary dilatation se en. PANCREAS: Unremarkable. SPLEEN: Unremarkable. ADRENAL GLANDS: Mildly thickened, may be seen with hyperplasia.. KIDNEYS AND URETERS: Punctate bilateral renal calculi appear present. No evidence of larger renal deyanira culi or contour deformity. No hydronephrosis. Kidneys appear mildly atrophic. PELVIS BLADDER: Nondistended with Reed catheter in place. Small amount gas the bladder lumen likely from th e catheter. REPRODUCTIVE: Unremarkable. ABDOMEN & PELVIS STOMACH AND BOWEL: Contrast traverses the stomach and duodenum, scattered in the distal duodenum and some jejunal loops, with contrast seen in multiple more distal loops without significant distention s een. Little if any contrast has reached the colon. There is nonvisualization of the appendix but no p ericecal inflammatory changes suggested. Moderate stool is present throughout the colon with several diverticula but no focal inflammation seen. PERITONEUM/RETROPERITONEUM: No evidence of pneumoperitoneum. Moderate amount of abdominal pelvic as cites. Stranding throughout the mesentery likely reflects mesenteric edema. No intraperitoneal mass i s appreciated. VASCULATURE: Aorta and major branches are grossly unremarkable. No AAA. LYMPH NODES: There are numerous retroperitoneal lymph nodes seen, which are not individually enlarged but conspicuous in number. These are most likely reactive. Similarly, there are multiple mildly prom inent pelvic nodes. No bulky inguinal adenopathy. SOFT TISSUE/ABDOMINAL WALL: There is moderately severe diffuse scrotal wall edema as well has moderat e diffuse edema throughout the body wall consistent with anasarca. Subcutaneous small foci of gas in the anterior abdominal wall compatible with medication injections. MUSCULOSKELETAL: No acute osseous abnormalities. Mild/moderate disc degeneration changes are present throughout the thoracolumbar spine. IMPRESSION: 1. Cirrhotic hepatic morphology. 2. Moderate abdominal pelvic ascites. Diffuse mesenteric edema. 3. Moderate diffuse body wall edema and moderately severe scrotal wall edema, suggestive of anasarca . 4. Punctate nonobstructing renal calculi. 5. Large right and moderate left pleural effusions with adjacent opacities, likely atelectasis. 6. Mild cardiomegaly. Moderate coronary artery calcifications.
[2023-08-14 19:56] LABS: Glucose,Whole Blood 126 mg/dL (70-110)
--- NOTE | 2023-08-14 22:36 | PN ---
PROGRESS NOTE DATE OF SERVICE: 08/14/2023 SUBJECTIVE: This is a 57-year-old gentleman who was admitted with multiple medical issues, having significant edema. The patient had renal failure, creatinine is around 2.7. Nephrology following the patient closely. The patient also had a low ejection fraction with possible cardiomyopathy also. Cardiology has seen the patient, recommended Coreg, LifeVest is also being planned. PAST MEDICAL HISTORY: Reviewed. REVIEW OF SYSTEMS: A 14-point review is negative except as mentioned earlier. CURRENT MEDICATIONS: Reviewed include Lipitor. PHYSICAL EXAMINATION: VITAL SIGNS: Pulse is 92, blood pressure 91/57, respirations 15. HEENT: Conjunctivae normal. NECK: No jugular venous distention. CARDIOVASCULAR: S1, S2. RESPIRATIONS: Breath sounds diminished at the bases. ABDOMEN: Soft. LEGS: No edema, no swelling. NERVOUS SYSTEM: Nonfocal. LABORATORY DATA: Creatinine 2.67, rest of the labs are noted. ASSESSMENT: 1. Generalized edema as well as scrotal edema and ascites with possible CHF acute exacerbation and acute on chronic systolic dysfunction. 2. Possible cardiomyopathy. 3. Acute renal failure, multifactorial. 4. Ascites and scrotal edema. 5. Possible cardiomyopathy. 6. Right pleural effusion. 7. Pneumonia unlikely per ID. 8. Diabetes mellitus type 2. 9. History of cataracts. 10.Depression. 11.Multiple medical issues. 12.Bicytopenia. RECOMMENDATIONS: Recommended to continue current management, continue symptomatic treatment. Continue with cautious diuresis. Continue with rest of medications per Cardiology and possible inotropes and transfer to telemetry. The patient also has mild bicytopenia. The exact etiology of cardiac abnormalities are unknown at this time. Overall prognosis extremely guarded. Further recommendations to follow. MMODL / IJN: [id number] /
[2023-08-15 06:16] LABS: Glucose,Whole Blood 106 mg/dL (70-110)
[2023-08-15] MEDS: INSULIN ASPART (NovoLOG) 100 UNIT/ML VIAL SQ SCH ×7 (06:18→21:50)
[2023-08-15] MEDS: carvediloL 3.125 MG TAB PO SCH ×2 (06:25→17:04)
[2023-08-15] MEDS: MIDODRINE 5 MG TAB PO SCH ×3 (06:25→17:04)
[2023-08-15] MEDS: DOBUTamine DRIP 500 MG in DEXTROSE/WATER 1 250ML.BAG IV SCH (07:52)
[2023-08-15] MEDS: ATORVASTATIN 10 MG TAB PO SCH (07:53)
[2023-08-15] MEDS: FUROSEMIDE 10 MG/ML 4 ML VIAL IV SCH ×2 (07:53→15:19)
[2023-08-15] MEDS: TAMSULOSIN 0.4 MG CAP.ER.24H PO SCH (07:53)
[2023-08-15] MEDS: lamoTRIgine 100 MG TAB PO SCH (07:53)
[2023-08-15] MEDS: HEPARIN SODIUM,PORCINE 5,000 UNIT/ML 1 ML VIAL SQ SCH ×2 (07:53→21:50)
--- NOTE | 2023-08-15 08:19 | US ---
EXAMINATION TYPE: US abdomen limited DATE OF EXAM: 08/15/2023 COMPARISON: CT CLINICAL INDICATION: Male, 57 years old with history of abdominal ascites for poss paracentesis; ABD distention Mild amount of ascites only visualized right flank/RLQ IMPRESSION: 1. Small amount of right flank ascites present.
[2023-08-15] MEDS ORDERED: NON FORMULARY DRUG (Dulaglutide [Trulicity] 1.5 MG/0.5 ML Each) SQ SCH (09:00)
[2023-08-15 09:43] LABS: ALT 19 U/L (4-49); AST 33 U/L (17-59); African American GFR (CKD) 32 (>60 ml/min/1.73 sqM); Albumin 3.5 g/dL (3.5-5.0); Alkaline Phosphatase 102 U/L (38-126); Anion Gap 14 mmol/L; Blood Urea Nitrogen 60 mg/dL (9-20); Calcium 8.8 mg/dL (8.4-10.2); Carbon Dioxide 19 mmol/L (22-30); Chloride 100 mmol/L (98-107); Glucose 201 mg/dL (74-99); Non-African American GFR(CKD) 28 (>60 ml/min/1.73 sqM); Potassium 4.2 mmol/L (3.5-5.1); Sodium 133 mmol/L (137-145); Total Protein 6.6 g/dL (6.3-8.2)
[2023-08-15 09:50] LABS: Basophils # (A) 0.1 k/uL (0-0.2); Basophils % (A) 1 %; Eosinophils # (A) 0.2 k/uL (0-0.7); Eosinophils % (A) 4 %; HCT 35.9 % (39.0-53.0); Hypochromasia Moderate; Lymphocytes # (A) 0.8 k/uL (1.0-4.8); Lymphocytes % (A) 19 %; MCH 26.7 pg (25.0-35.0); MCHC 30.8 g/dL (31.0-37.0); MCV 86.6 fL (80.0-100.0); Mean Platelet Volume 8.2; Monocytes # (A) 0.2 k/uL (0-1.0); Monocytes % (A) 5 %; Neutrophils # (A) 2.9 k/uL (1.3-7.7); Neutrophils % (A) 68 %; Platelet Count 128 k/uL (150-450); RBC 4.14 m/uL (4.30-5.90); RDW 15.7 % (11.5-15.5); WBC 4.4 k/uL (3.8-10.6)
[2023-08-15 11:36] LABS: Glucose,Whole Blood 125 mg/dL (70-110)
[2023-08-15] MEDS: ALPRAZolam 0.25 MG TAB PO PRN (12:07)
--- NOTE | 2023-08-15 12:19 | P.PN ---
Subjective Patient is seen for follow-up for acute kidney injury and volume overload. EF 15-20% Blood pressure has been low. Started on midodrine. Patient was moved to telemetry floor to start dobutamine. Serum creatinine at 2.4 today. Maintained on Lasix 40 mg IV every 12 hours Objective - Vital Signs Vital signs: Vital Signs Temp 97.5 F L 08/15/23 07:45 Pulse 88 08/15/23 11:39 Resp 20 08/15/23 11:39 BP 92/54 08/15/23 11:39 Pulse Ox 100 08/15/23 11:39 FiO2 21 08/13/23 12:31 Intake & Output 08/14/23 08/15/23 08/15/23 18:59 06:59 18:59 Intake Total 336 358 Output Total 600 800 Balance -264 -800 358 Intake: Oral 336 358 Output: Urine 600 800 Other: Voiding Method Indwelling Catheter Indwelling Catheter Indwelling Catheter # Voids 2 # Bowel Movements 1 - Exam Patient is awake, comfortable, no acute distress Examination of the heart S1 and S2 Examination of the lungs decreased breath sounds at the bases Abdomen is soft distended nontender, obese, scrotal edema Examination lower extremities shows edema 2+ bilaterally [employer] exam grossly intact - Labs CBC & Chem 7: 08/15/23 08:36 08/15/23 08:36 Labs: Abnormal Lab Results - Last 24 Hours (Table) 08/14/23 08/14/23 08/14/23 Range/Units 12:26 16:09 19:55 RBC (4.30-5.90) m/uL Hgb (13.0-17.5) gm/dL Hct (39.0-53.0) % MCHC (31.0-37.0) g/dL RDW (11.5-15.5) % Plt Count (150-450) k/uL Lymphocytes # (1.0-4.8) k/uL Sodium (137-145) mmol/L Carbon Dioxide (22-30) mmol/L BUN (9-20) mg/dL Creatinine (0.66-1.25) mg/dL Glucose (74-99) mg/dL POC Glucose (mg/dL) 146 H 140 H 126 H (70-110) mg/dL 08/15/23 08/15/23 08/15/23 Range/Units 08:36 08:36 11:29 RBC 4.14 L (4.30-5.90) m/uL Hgb 11.0 L (13.0-17.5) gm/dL Hct 35.9 L (39.0-53.0) % MCHC 30.8 L (31.0-37.0) g/dL RDW 15.7 H (11.5-15.5) % Plt Count 128 L (150-450) k/uL Lymphocytes # 0.8 L (1.0-4.8) k/uL Sodium 133 L (137-145) mmol/L Carbon Dioxide 19 L (22-30) mmol/L BUN 60 H (9-20) mg/dL Creatinine 2.49 H (0.66-1.25) mg/dL Glucose 201 H (74-99) mg/dL POC Glucose (mg/dL) 125 H (70-110) mg/dL Microbiology - Last 24 Hours (Table) 08/11/23 21:41 Blood Culture - Preliminary Blood 08/11/23 21:33 Blood Culture - Preliminary Blood Assessment and Plan Assessment: 1. Acute kidney injury ATN, nonoliguric and component of cardiorenal syndrome. Blood pressure remains low with worsening renal function. Started on dobutamine.. No evidence of obstruction on ultrasound. UA is quite benign with 1+ protein. 2. Previous episodes of acute kidney injury in March 2023. 3. Volume overload with severe scrotal edema 4. Acute on chronic systolic CHF with EF of 15-20%. Plan: Increase Lasix to 40 mg every 8 hours Increase dose of midodrine Continue dobutamine Repeat labs in a.m.
--- NOTE | 2023-08-15 13:16 | P.PN ---
Subjective Progress Note Date: 08/14/23 Principal diagnosis: Reason for follow-up is abnormal chest x-ray and question of pneumonia Patient is a 57-year-old male with a past medical history significant for diabetes mellitus depression, apparently the patient has been smoking a lot of marijuana lately, presenting to the hospital for confusion and sleeping a lot, patient noticed to have increasing swelling to the scrotal area and lower extremity and also have a chest x-ray concerning for possible right midlung pneumonia patient did have a normal white count and normal procalcitonin. On today's evaluation that is 08/14/2023, the patient remains to be afebrile, the patient is breathing comfortably on room air, the patient denies any chest pain or shortness of breath no cough no nausea vomiting no abdominal pain no diarrhea still complaining of swelling to the scrotal and lower extremity . Patient did have white count of 4.95 as of yesterday, creatinine is 2.67 procalcitonin was 0.08 blood cultures so far pending Objective - Vital Signs Vital signs: Vital Signs Temp 98.2 F 08/14/23 15:00 Pulse 91 08/14/23 15:00 Resp 16 08/14/23 15:00 BP 106/77 08/14/23 15:00 Pulse Ox 100 08/14/23 15:00 FiO2 21 08/13/23 12:31 Intake & Output 08/13/23 08/14/23 08/14/23 18:59 06:59 18:59 Intake Total 480 336 Output Total 600 1100 600 Balance -120 -1100 -264 Intake: Oral 480 336 Output: Urine 600 1100 600 Other: Voiding Method Indwelling Catheter Indwelling Catheter Indwelling Catheter # Bowel Movements 0 - Exam GENERAL DESCRIPTION: Middle-age male lying in bed in no distress RESPIRATORY SYSTEM: Unlabored breathing , decreased breath sounds at bases HEART: S1 S2 regular rate and rhythm , ABDOMEN: Soft , no tenderness EXTREMITIES: 2+ edema feet - Labs CBC & Chem 7: 08/15/23 08:36 08/15/23 08:36 Labs: Abnormal Lab Results - Last 24 Hours (Table) 08/14/23 08/14/23 08/14/23 Range/Units 05:31 11:14 12:26 Sodium 136 L (137-145) mmol/L Carbon Dioxide 20 L (22-30) mmol/L BUN 59 H (9-20) mg/dL Creatinine 2.67 H (0.66-1.25) mg/dL Glucose 138 H (74-99) mg/dL POC Glucose (mg/dL) 118 H 146 H (70-110) mg/dL 08/14/23 Range/Units 16:09 Sodium (137-145) mmol/L Carbon Dioxide (22-30) mmol/L BUN (9-20) mg/dL Creatinine (0.66-1.25) mg/dL Glucose (74-99) mg/dL POC Glucose (mg/dL) 140 H (70-110) mg/dL Microbiology - Last 24 Hours (Table) 08/11/23 21:41 Blood Culture - Preliminary Blood 08/11/23 21:33 Blood Culture - Preliminary Blood Assessment and Plan (1) Abnormal chest x-ray Current Visit: Yes Status: Acute Code(s): R93.89 - ABNORMAL FINDINGS ON DX IMAGING OF OTH BODY STRUCTURES SNOMED Code(s): 189331153 Plan: 1patient presented to hospital with confusion weakness sleeping a lot and apparently has been smoking a lot of marijuana recently patient also having increasing swelling to the scrotum and the lower extremity possibly component of fluid overload and did have abnormal chest x-ray concerning for pneumonia more likely fluid overload as the patient is clinically not behaving as pneumonia with no fever elevated white count and did have normal procalcitonin 2patient with multiple antibiotic ALLERGIES that would limit the number of antibiotic safe to use 3patient seem to be doing better without antibiotic therapy and will monitor closely, waiting for the blood culture to finalize Dictation was produced using [employer] dictation software. please excuse any grammatical, word or spelling errors. Time with Patient: Less than 30
--- NOTE | 2023-08-15 13:17 | P.PN ---
Subjective Progress Note Date: 08/15/23 Principal diagnosis: Reason for follow-up is abnormal chest x-ray and question of pneumonia Patient is a 57-year-old male with a past medical history significant for diabetes mellitus depression, apparently the patient has been smoking a lot of marijuana lately, presenting to the hospital for confusion and sleeping a lot, patient noticed to have increasing swelling to the scrotal area and lower extremity and also have a chest x-ray concerning for possible right midlung pneumonia patient did have a normal white count and normal procalcitonin. On today's evaluation that is 08/15/2023, the patient continues to be afebrile, the patient is breathing comfortably on room air, the patient denies any chest pain or shortness of breath, did have occasional dry cough, the patient denies nausea vomiting no abdominal pain no diarrhea still complaining of swelling to the scrotal and lower extremity no new symptoms . Patient did have white count of 4.4, creatinine is 2.49 procalcitonin was 0.08 blood cultures so far negative Objective - Vital Signs Vital signs: Vital Signs Temp 97.5 F L 08/15/23 07:45 Pulse 88 08/15/23 13:10 Resp 20 08/15/23 11:39 BP 92/54 08/15/23 11:39 Pulse Ox 100 08/15/23 11:39 FiO2 21 08/13/23 12:31 Intake & Output 08/14/23 08/15/23 08/15/23 18:59 06:59 18:59 Intake Total 336 358 Output Total 600 800 700 Balance -264 -800 -342 Intake: Oral 336 358 Output: Urine 600 800 700 Other: Voiding Method Indwelling Catheter Indwelling Catheter Indwelling Catheter # Voids 2 # Bowel Movements 1 - Exam GENERAL DESCRIPTION: Middle-age male lying in bed in no distress RESPIRATORY SYSTEM: Unlabored breathing , decreased breath sounds at bases HEART: S1 S2 regular rate and rhythm , ABDOMEN: Soft , no tenderness EXTREMITIES: 2+ edema feet - Labs CBC & Chem 7: 08/15/23 08:36 08/15/23 08:36 Labs: Abnormal Lab Results - Last 24 Hours (Table) 08/14/23 08/14/23 08/15/23 Range/Units 16:09 19:55 08:36 RBC 4.14 L (4.30-5.90) m/uL Hgb 11.0 L (13.0-17.5) gm/dL Hct 35.9 L (39.0-53.0) % MCHC 30.8 L (31.0-37.0) g/dL RDW 15.7 H (11.5-15.5) % Plt Count 128 L (150-450) k/uL Lymphocytes # 0.8 L (1.0-4.8) k/uL Sodium (137-145) mmol/L Carbon Dioxide (22-30) mmol/L BUN (9-20) mg/dL Creatinine (0.66-1.25) mg/dL Glucose (74-99) mg/dL POC Glucose (mg/dL) 140 H 126 H (70-110) mg/dL 08/15/23 08/15/23 Range/Units 08:36 11:29 RBC (4.30-5.90) m/uL Hgb (13.0-17.5) gm/dL Hct (39.0-53.0) % MCHC (31.0-37.0) g/dL RDW (11.5-15.5) % Plt Count (150-450) k/uL Lymphocytes # (1.0-4.8) k/uL Sodium 133 L (137-145) mmol/L Carbon Dioxide 19 L (22-30) mmol/L BUN 60 H (9-20) mg/dL Creatinine 2.49 H (0.66-1.25) mg/dL Glucose 201 H (74-99) mg/dL POC Glucose (mg/dL) 125 H (70-110) mg/dL Microbiology - Last 24 Hours (Table) 08/11/23 21:41 Blood Culture - Preliminary Blood 08/11/23 21:33 Blood Culture - Preliminary Blood Assessment and Plan (1) Abnormal chest x-ray Current Visit: Yes Status: Acute Code(s): R93.89 - ABNORMAL FINDINGS ON DX IMAGING OF OTH BODY STRUCTURES SNOMED Code(s): 996241819 Plan: 1patient presented to hospital with confusion weakness sleeping a lot and apparently has been smoking a lot of marijuana recently patient also having increasing swelling to the scrotum and the lower extremity possibly component of fluid overload and did have abnormal chest x-ray concerning for pneumonia more likely fluid overload as the patient is clinically not behaving as pneumonia with no fever elevated white count and did have normal procalcitonin 2patient with multiple antibiotic ALLERGIES that would limit the number of antibiotic safe to use 3patient remains to be afebrile patient white count is normal culture has been negative currently off antibiotics ID will sign off please call back if any question regarding his infectious disease care Dictation was produced using [employer] dictation software. please excuse any grammatical, word or spelling errors. Time with Patient: Less than 30
--- NOTE | 2023-08-15 13:47 | P.PN ---
Subjective Progress Note Date: 08/15/23 Principal diagnosis: Shortness of breath, scrotal edema, lower extremity edema. 57-year-old male who presents to the emergency department, on August 11. He was brought in by EMS. The patient essentially presented with lower extremity edema, and scrotal edema. The patient denied any respiratory issues including shortness of breath, cough, wheezing, chest tightness, or phlegm production. The patient apparently is been smoking a lot of marijuana recently, and has not been taking his insulin recently. He seems rather strange to me, and that his history was a bit disoriented. Nonetheless, he did have scrotal edema, and lower extremity edema. He apparently has a history of asthma, which is mild, diabetes, hyperlipidemia, hypertension, and BPH. White count 5.6, hemoglobin 11, hematocrit 35.7, and platelet count 146,000. Coagulation studies were normal. Sodium 135, potassium 5, chlorides 105, CO2 18, anion gap 12, BUN 46, creatinine 2.36. Glucose 112. BNP was 7080. Pro-calcitonin level was 0.07. The patient will need an echocardiogram. The patient's renal ultrasound appeared normal. In our opinion, the chest x-ray was most consistent with fluid overload, and not pneumonia. The normal pro-calcitonin level and elevated N- terminal proBNP, supports that notion. The patient is seen today 08/13/2023 in follow-up on the regular medical floor. He is currently resting comfortably in bed. Awake and alert in no acute distress. He is maintaining good O2 saturations in the mid 90s on room air. He is afebrile. Hemodynamically stable. Continues with scrotal, abdominal and lower extremity edema. Echocardiogram revealed diffuse global hypokinesis with severe left ventricular systolic function and an ejection fraction of 15-20%. Blood cultures revealed no growth. White count 4.9. Hemoccult and 10.2. Platelets 125. Sodium 135. Potassium 4.7. Bicarb 19. BUN 48. Creatinine 2.7. Glucose 134. Hemoglobin A1c 6.8. Procalcitonin was negative at 0.08. Antibiotics will be discontinued. He is continued on IV diuretics. The patient is seen today 08/14/2023 in follow-up on the regular medical floor. He is awake and alert in no acute distress. Resting comfortably in bed. He is maintaining O2 saturations in the 90s on room air. He's been afebrile. Hemodynamically stable. Sodium 136. Potassium 4.7. Bicarb 20. BUN 59. Creatinine 2.63. Glucose 138. He is continued on bronchodilators. Heparin for DVT prophylaxis. Remains on IV diuretics. -1.2 L balance. Progress note dated 08/15/2023. The patient is seen today in room 368. He's currently on room air. He's on dobutamine at 2.5 mcg/kg/m, ordered by nephrology. Patient has bilateral effusions, right greater than left. An ultrasound was ordered. White count 4.4, hemoglobin 11, hematocrit 35.9, platelet count 128,000. Sodium 133, potassium 4.2, chlorides 100, CO2 19, anion gap 14, BUN 60, creatinine 2.49. Objective - Vital Signs Vital signs: Vital Signs Temp 97.5 F L 08/15/23 07:45 Pulse 88 08/15/23 13:10 Resp 20 08/15/23 11:39 BP 92/54 08/15/23 11:39 Pulse Ox 100 08/15/23 11:39 FiO2 21 08/13/23 12:31 Intake & Output 08/14/23 08/15/23 08/15/23 18:59 06:59 18:59 Intake Total 336 358 Output Total 600 800 700 Balance -688 -800 -342 Intake: Oral 336 358 Output: Urine 600 800 700 Other: Voiding Method Indwelling Catheter Indwelling Catheter Indwelling Catheter # Voids 2 # Bowel Movements 1 - Exam No acute distress, oriented 3. Currently on room air. HEENT examination is grossly unremarkable. Mucous membranes are moist. No oral lesions. Neck supple. Full range of motion. No adenopathy thyromegaly or neck vein distention. Cardiovascular examination reveals regular rhythm rate. S1-S2 normal. No S3 or S4. No discernible murmur noted. Heart sounds are distant. Heart rate 80 bpm. Lungs reveal basilar crackles. No wheezes or rhonchi. Saturations are excellent on room air. Abdomen soft bowel sounds are heard. No masses or tenderness. Scrotal edema present. Extremities are intact. No cyanosis or clubbing. 1+ pitting edema. Skin is without rash or lesion. Neurologic examination is brief but nonfocal. - Labs CBC & Chem 7: 08/15/23 08:36 08/15/23 08:36 Labs: Abnormal Lab Results - Last 24 Hours (Table) 08/14/23 08/14/23 08/15/23 Range/Units 16:09 19:55 08:36 RBC 4.14 L (4.30-5.90) m/uL Hgb 11.0 L (13.0-17.5) gm/dL Hct 35.9 L (39.0-53.0) % MCHC 30.8 L (31.0-37.0) g/dL RDW 15.7 H (11.5-15.5) % Plt Count 128 L (150-450) k/uL Lymphocytes # 0.8 L (1.0-4.8) k/uL Sodium (137-145) mmol/L Carbon Dioxide (22-30) mmol/L BUN (9-20) mg/dL Creatinine (0.66-1.25) mg/dL Glucose (74-99) mg/dL POC Glucose (mg/dL) 140 H 126 H (70-110) mg/dL 08/15/23 08/15/23 Range/Units 08:36 11:29 RBC (4.30-5.90) m/uL Hgb (13.0-17.5) gm/dL Hct (39.0-53.0) % MCHC (31.0-37.0) g/dL RDW (11.5-15.5) % Plt Count (150-450) k/uL Lymphocytes # (1.0-4.8) k/uL Sodium 133 L (137-145) mmol/L Carbon Dioxide 19 L (22-30) mmol/L BUN 60 H (9-20) mg/dL Creatinine 2.49 H (0.66-1.25) mg/dL Glucose 201 H (74-99) mg/dL POC Glucose (mg/dL) 125 H (70-110) mg/dL Microbiology - Last 24 Hours (Table) 08/11/23 21:41 Blood Culture - Preliminary Blood 08/11/23 21:33 Blood Culture - Preliminary Blood Assessment and Plan Assessment: Fluid overload state, with scrotal edema, lower extremity edema, and CHF on chest x-ray. Severe cardiomyopathy, of unclear etiology. Probable acute kidney injury. History of diabetes mellitus. History of hyperlipidemia. History of hypertension. History of BPH. History of mild chronic bronchial asthma. Plan: Plan dated 08/12/2023. The patient's antibiotics will be discontinued. I don't believe the patient has pneumonia. He's not having any symptoms of pneumonia. He looks to have acute kidney injury, and a fluid overload state. He has scrotal edema, and significant lower extremity edema. The patient will need an echocardiogram to evaluate cardiac function. Additional recommendations and suggestions are forthcoming. Prognosis is guarded. Plan dated 08/15/2023. The patient is evaluated. He seen today in room 368. Cardiology has been consulted. The patient was started on dobutamine, at 2.5 mcg/kg/m by nephrology. Labs, x-rays, medications are reviewed. The patient is receiving Lasix 40 mg every 8 hours, as per nephrology. His respiratory status seems recently stable. We did order an ultrasound of the chest, to see if he would benefit from thoracentesis. He has a history of bilateral pleural effusions, right greater than left. Additional recommendations and suggestions are forthcoming. Time with Patient: Less than 30
--- NOTE | 2023-08-15 14:07 | P.PN ---
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 He has a past medical history of smoking marijuana, diabetes. We have been asked to evaluate the patient for cardiomyopathy. Patient's main concern is that he states he has been vaping Reema a lot lately. He has developed shortness of breath for at least the last month. He is not sure when his breathing was normal but maybe a couple months ago. He states he has filed for disability. Regarding alcohol, he states he stopped drinking 6 months ago. Patient is not clear how much he was drinking at home other than a couple 12 cans a couple times a week. Patient was admitted to the hospital for lower extremity edema, scrotal edema, acute kidney injury and seen by pulmonary medicine and nephrology. He has been started on IV Lasix by nephrology of 40 mg every 12 hours. EKG sinus rhythm, incomplete right bundle branch block Chest x-ray: 08/12 right midlung pneumonia, small right pleural effusion. WBC 4.9, hemoglobin 10.2, platelet count 125. Sodium 135, potassium 4.7, BUN 40 creatinine 2.7. Magnesium 2.1. Hemoglobin A1c 6.8. Liver function tests are normal. ProBNP 7080. Pro-calcitonin 0.08. Home cardiac medications: Zocor 20 mg daily. Echocardiogram performed 08/12/2023 reveals severe LV systolic dysfunction with EF of 15-20%, moderate mitral regurgitation, moderate tricuspid regurgitation. 08/14 Patient had episode of chest pain this morning. He feels that it was related to a panic attack. He states that shortness of breath is improving he is able to lay flat. Lower extremity edema is improving but he states he still has scrotal edema. Blood pressure is lower today 90/60. 08/15/2023 Patient examined this morning at the bedside. Patient denies chest pain or pressure. He reports shortness of breath. He continues on IV Lasix 40 mg every 8 hours. Patient is also on a dobutamine infusion at the time of examination. Vital signs are stable. Blood pressure stable with a systolic in the 90s. Creatinine today 2.49. PHYSICAL EXAM: VITAL SIGNS: Reviewed. GENERAL: Well-developed in no acute distress. NECK: Supple. No JVD or thyromegaly LUNGS: Respirations even and unlabored. Lungs diminished with bibasilar crackles HEART: Regular rate and rhythm. S1 and S2 heard. EXTREMITIES: Normal range of motion. No clubbing or cyanosis. Peripheral pulses intact. 1+ bilateral lower extremity edema ASSESSMENT: Acute systolic heart failure Cardiomyopathy of unclear etiology Bicytopenia with anemia and thrombocytopenia Acute kidney injury Hyperlipidemia Hypertension Diabetes Vaping/marijuana PLAN: Continue current cardiac medications Continue IV Lasix per nephrology Continue IV dobutamine Continue to monitor kidney function Patient has been fitted with a LifeVest When patient's kidney function normalizes, he will require cardiac catheterization due to cardiomyopathy Further recommendations pending patient's course Nurse practitioner note has been reviewed by physician. Signing provider agrees with the documented findings, assessment, and plan of care. Objective - Vital Signs Vital signs: Vital Signs Temp 97.5 F L 08/15/23 07:45 Pulse 88 08/15/23 13:10 Resp 20 08/15/23 11:39 BP 92/54 08/15/23 11:39 Pulse Ox 100 08/15/23 11:39 FiO2 21 08/13/23 12:31 Intake & Output 08/14/23 08/15/23 08/15/23 18:59 06:59 18:59 Intake Total 336 358 Output Total 600 800 700 Balance -264 -800 -342 Intake: Oral 336 358 Output: Urine 600 800 700 Other: Voiding Method Indwelling Catheter Indwelling Catheter Indwelling Catheter # Voids 2 # Bowel Movements 1 - Labs CBC & Chem 7: 08/15/23 08:36 08/15/23 08:36 Labs: Abnormal Lab Results - Last 24 Hours (Table) 08/14/23 08/14/23 08/15/23 Range/Units 16:09 19:55 08:36 RBC 4.14 L (4.30-5.90) m/uL Hgb 11.0 L (13.0-17.5) gm/dL Hct 35.9 L (39.0-53.0) % MCHC 30.8 L (31.0-37.0) g/dL RDW 15.7 H (11.5-15.5) % Plt Count 128 L (150-450) k/uL Lymphocytes # 0.8 L (1.0-4.8) k/uL Sodium (137-145) mmol/L Carbon Dioxide (22-30) mmol/L BUN (9-20) mg/dL Creatinine (0.66-1.25) mg/dL Glucose (74-99) mg/dL POC Glucose (mg/dL) 140 H 126 H (70-110) mg/dL 08/15/23 08/15/23 Range/Units 08:36 11:29 RBC (4.30-5.90) m/uL Hgb (13.0-17.5) gm/dL Hct (39.0-53.0) % MCHC (31.0-37.0) g/dL RDW (11.5-15.5) % Plt Count (150-450) k/uL Lymphocytes # (1.0-4.8) k/uL Sodium 133 L (137-145) mmol/L Carbon Dioxide 19 L (22-30) mmol/L BUN 60 H (9-20) mg/dL Creatinine 2.49 H (0.66-1.25) mg/dL Glucose 201 H (74-99) mg/dL POC Glucose (mg/dL) 125 H (70-110) mg/dL Microbiology - Last 24 Hours (Table) 08/11/23 21:41 Blood Culture - Preliminary Blood 08/11/23 21:33 Blood Culture - Preliminary Blood
[2023-08-15 16:56] LABS: Glucose,Whole Blood 196 mg/dL (70-110)
--- NOTE | 2023-08-15 17:23 | US ---
EXAMINATION TYPE: US chest DATE OF EXAM: 08/15/2023 COMPARISON: NONE CLINICAL INDICATION: Male, 57 years old with history of Bilateral effusions; TECHNIQUE: Targeted ultrasound of the posterior lower bilateral hemithoraces EXAM MEASUREMENTS: Right Pleural Effusion pocket size: 6.8 cm Right skin surface to fluid distance: 1.6 cm Left Pleural Effusion pocket size: 2.3 cm Left skin surface to fluid distance: 4.0 cm Right side marked for possible thoracentesis outside the dept. Appendage seen posterior to the skin surface within the left pleural space Pulmonologists are able to review the images in the patient?s EMR. IMPRESSIONS: 1. Bilateral pleural effusions
[2023-08-15 19:26] LABS: Glucose,Whole Blood 184 mg/dL (70-110)
[2023-08-16] MEDS: FUROSEMIDE 10 MG/ML 4 ML VIAL IV SCH ×4 (00:39→23:35)
--- NOTE | 2023-08-16 01:28 | PN ---
PROGRESS NOTE DATE OF SERVICE: 08/15/2023 SUBJECTIVE: This is a 57-year-old gentleman who was admitted with generalized edema and also CHF acute exacerbation, has possible cardiomyopathy. The patient also had renal failure also. The patient is being closely monitored. The patient is transferred to telemetry for dobutamine drip at this time. Cardiology and Nephrology following the patient closely. A CT scan showed possibly hepatic cirrhosis and ascites also, large pleural effusions also noted. PAST MEDICAL HISTORY: Reviewed. REVIEW OF SYSTEMS: A 14-point review is negative except as mentioned earlier. CURRENT MEDICATIONS: Reviewed include Tylenol, Ventolin, Xanax, dose and rest of medications noted. PHYSICAL EXAMINATION: VITAL SIGNS: Pulse is 88, blood pressure 92/52, respirations 20. HEENT: Conjunctivae normal. NECK: No jugular venous distention. CARDIOVASCULAR: S1, S2 muffled. RESPIRATIONS: Breath sounds diminished at the bases. ABDOMEN: Soft, ascites. LEGS: Bilateral leg edema. NERVOUS SYSTEM: No focal deficits. : Scrotal edema present. LABORATORY DATA: Creatinine 2.5, rest of the labs and x-rays, CAT scan reviewed personally. ASSESSMENT: 1. Generalized edema as well as scrotal edema and ascites, possibly CHF acute exacerbation with acute on chronic systolic dysfunction with possible cardiomyopathy. 2. Possible cirrhosis of liver with ascites. 3. Acute renal failure, multifactorial. 4. Right pleural effusion. 5. Pneumonia, unlikely per ID. 6. Diabetes mellitus, type 2. 7. History of cataracts. 8. Depression. 9. Multiple medical issues. 10.Bicytopenia. RECOMMENDATIONS: Recommended to continue current medications, continue symptomatic treatment. Continue with dobutamine drip. Otherwise, repeat labs. Also recommended Intervention Radiology consultation, possible ascitic aspiration also. Closely follow with multiple consultants. Prognosis guarded. Further recommendations to follow. MMODL / IJN: [id number] /
[2023-08-16 06:15] LABS: Glucose,Whole Blood 113 mg/dL (70-110)
[2023-08-16] MEDS: INSULIN ASPART (NovoLOG) 100 UNIT/ML VIAL SQ SCH ×7 (06:18→21:01)
[2023-08-16] MEDS: carvediloL 3.125 MG TAB PO SCH ×2 (06:51→17:02)
[2023-08-16] MEDS: MIDODRINE 5 MG TAB PO SCH ×3 (06:51→17:02)
[2023-08-16] MEDS: ATORVASTATIN 10 MG TAB PO SCH (07:38)
[2023-08-16] MEDS: lamoTRIgine 100 MG TAB PO SCH (07:38)
[2023-08-16] MEDS: HEPARIN SODIUM,PORCINE 5,000 UNIT/ML 1 ML VIAL SQ SCH ×2 (07:39→21:59)
[2023-08-16] MEDS: TAMSULOSIN 0.4 MG CAP.ER.24H PO SCH (07:39)
[2023-08-16] MEDS: DOBUTamine DRIP 500 MG in DEXTROSE/WATER 1 250ML.BAG IV SCH (08:07)
--- NOTE | 2023-08-16 09:27 | XR ---
EXAMINATION TYPE: XR chest 1V portable DATE OF EXAM: 08/16/2023 COMPARISON: 1124 INDICATION: CHF TECHNIQUE: Single frontal view of the chest is obtained. FINDINGS: The heart size is borderline prominent. The pulmonary vasculature is normal. Minimal left moderate right pleural effusions are present. Right lower lobe infiltrate appears stable. IMPRESSION: 1. Stable appearing bilateral pleural effusions. 2. Right lower lobe infiltrate appears stable.
[2023-08-16 11:35] LABS: Glucose,Whole Blood 173 mg/dL (70-110)
--- NOTE | 2023-08-16 11:52 | P.PN ---
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 He has a past medical history of smoking marijuana, diabetes. We have been asked to evaluate the patient for cardiomyopathy. Patient's main concern is that he states he has been vaping Reema a lot lately. He has developed shortness of breath for at least the last month. He is not sure when his breathing was normal but maybe a couple months ago. He states he has filed for disability. Regarding alcohol, he states he stopped drinking 6 months ago. Patient is not clear how much he was drinking at home other than a couple 12 cans a couple times a week. Patient was admitted to the hospital for lower extremity edema, scrotal edema, acute kidney injury and seen by pulmonary medicine and nephrology. He has been started on IV Lasix by nephrology of 40 mg every 12 hours. EKG sinus rhythm, incomplete right bundle branch block Chest x-ray: 08/12 right midlung pneumonia, small right pleural effusion. WBC 4.9, hemoglobin 10.2, platelet count 125. Sodium 135, potassium 4.7, BUN 40 creatinine 2.7. Magnesium 2.1. Hemoglobin A1c 6.8. Liver function tests are normal. ProBNP 7080. Pro-calcitonin 0.08. Home cardiac medications: Zocor 20 mg daily. Echocardiogram performed 08/12/2023 reveals severe LV systolic dysfunction with EF of 15-20%, moderate mitral regurgitation, moderate tricuspid regurgitation. 08/14 Patient had episode of chest pain this morning. He feels that it was related to a panic attack. He states that shortness of breath is improving he is able to lay flat. Lower extremity edema is improving but he states he still has scrotal edema. Blood pressure is lower today 90/60. 08/15/2023 Patient examined this morning at the bedside. Patient denies chest pain or pressure. He reports shortness of breath. He continues on IV Lasix 40 mg every 8 hours. Patient is also on a dobutamine infusion at the time of examination. Vital signs are stable. Blood pressure stable with a systolic in the 90s. Creatinine today 2.49. 08/16/2023 Patient examined this morning at the bedside. Patient denies chest pain or pressure. He currently denies shortness of breath but reports mild shortness of breath overnight. He continues on IV Lasix 40 mg every 8 hours. Patient is also on a dobutamine infusion at the time of examination. Kidney function from this morning is currently pending. Vital signs are stable. PHYSICAL EXAM: VITAL SIGNS: Reviewed. GENERAL: Well-developed in no acute distress. NECK: Supple. No JVD or thyromegaly LUNGS: Respirations even and unlabored. Lungs diminished with bibasilar crackles HEART: Regular rate and rhythm. S1 and S2 heard. EXTREMITIES: Normal range of motion. No clubbing or cyanosis. Peripheral pulses intact. 1+ bilateral lower extremity edema ASSESSMENT: Acute systolic heart failure Cardiomyopathy of unclear etiology Bicytopenia with anemia and thrombocytopenia Acute kidney injury Hyperlipidemia Hypertension Diabetes Vaping/marijuana PLAN: Continue current cardiac medications Continue IV Lasix per nephrology Continue IV dobutamine Continue to monitor kidney function. Awaiting labs from this morning. Patient has been fitted with a LifeVest When patient's kidney function normalizes, he will require cardiac catheteri zation due to cardiomyopathy Further recommendations pending patient's course Nurse practitioner note has been reviewed by physician. Signing provider agrees with the documented findings, assessment, and plan of care. Objective - Vital Signs Vital signs: Vital Signs Temp 97.8 F 08/16/23 07:35 Pulse 72 08/16/23 11:09 Resp 20 08/16/23 11:09 BP 100/71 08/16/23 11:09 Pulse Ox 98 08/16/23 11:09 FiO2 21 08/13/23 12:31 Intake & Output 08/15/23 08/16/23 08/16/23 18:59 06:59 18:59 Intake Total 1196 198.001 Output Total 700 1600 600 Balance 496 -1600 -401.999 Weight 110 kg Intake: Intake, IV Titration 198.001 Amount DOBUTamine DRIP 500 mg In 198.001 Dextrose/Water 1 250ml. bag @ 2.5 MCG/KG/MIN 8. 165 mls/hr IV .Q24H [facility] Rx#:[id number] Oral 1196 Output: Urine 700 1600 600 Other: Voiding Method Indwelling Catheter Indwelling Catheter Indwelling Catheter # Bowel Movements 1 - Labs CBC & Chem 7: 08/15/23 08:36 08/15/23 08:36 Labs: Abnormal Lab Results - Last 24 Hours (Table) 08/15/23 08/15/23 08/16/23 Range/Units 16:48 19:22 06:11 POC Glucose (mg/dL) 196 H 184 H 113 H (70-110) mg/dL 08/16/23 Range/Units 11:34 POC Glucose (mg/dL) 173 H (70-110) mg/dL
--- NOTE | 2023-08-16 13:05 | P.PN ---
Subjective Progress Note Date: 08/16/23 Principal diagnosis: Shortness of breath, scrotal edema, lower extremity edema. 57-year-old male who presents to the emergency department, on August 11. He was brought in by EMS. The patient essentially presented with lower extremity edema, and scrotal edema. The patient denied any respiratory issues including shortness of breath, cough, wheezing, chest tightness, or phlegm production. The patient apparently is been smoking a lot of marijuana recently, and has not been taking his insulin recently. He seems rather strange to me, and that his history was a bit disoriented. Nonetheless, he did have scrotal edema, and lower extremity edema. He apparently has a history of asthma, which is mild, diabetes, hyperlipidemia, hypertension, and BPH. White count 5.6, hemoglobin 11, hematocrit 35.7, and platelet count 146,000. Coagulation studies were normal. Sodium 135, potassium 5, chlorides 105, CO2 18, anion gap 12, BUN 46, creatinine 2.36. Glucose 112. BNP was 7080. Pro-calcitonin level was 0.07. The patient will need an echocardiogram. The patient's renal ultrasound appeared normal. In our opinion, the chest x-ray was most consistent with fluid overload, and not pneumonia. The normal pro-calcitonin level and elevated N- terminal proBNP, supports that notion. The patient is seen today 08/13/2023 in follow-up on the regular medical floor. He is currently resting comfortably in bed. Awake and alert in no acute distress. He is maintaining good O2 saturations in the mid 90s on room air. He is afebrile. Hemodynamically stable. Continues with scrotal, abdominal and lower extremity edema. Echocardiogram revealed diffuse global hypokinesis with severe left ventricular systolic function and an ejection fraction of 15-20%. Blood cultures revealed no growth. White count 4.9. Hemoccult and 10.2. Platelets 125. Sodium 135. Potassium 4.7. Bicarb 19. BUN 48. Creatinine 2.7. Glucose 134. Hemoglobin A1c 6.8. Procalcitonin was negative at 0.08. Antibiotics will be discontinued. He is continued on IV diuretics. The patient is seen today 08/14/2023 in follow-up on the regular medical floor. He is awake and alert in no acute distress. Resting comfortably in bed. He is maintaining O2 saturations in the 90s on room air. He's been afebrile. Hemodynamically stable. Sodium 136. Potassium 4.7. Bicarb 20. BUN 59. Creatinine 2.63. Glucose 138. He is continued on bronchodilators. Heparin for DVT prophylaxis. Remains on IV diuretics. -1.2 L balance. Progress note dated 08/15/2023. The patient is seen today in room 368. He's currently on room air. He's on dobutamine at 2.5 mcg/kg/m, ordered by nephrology. Patient has bilateral effusions, right greater than left. An ultrasound was ordered. White count 4.4, hemoglobin 11, hematocrit 35.9, platelet count 128,000. Sodium 133, potassium 4.2, chlorides 100, CO2 19, anion gap 14, BUN 60, creatinine 2.49. Progress note dated 08/16/2023. 57-year-old male, seen today in room 368. Currently, the patient's on room air. Is not receiving any IV fluids. The patient continues on dobutamine, at 2.5 mcg/kg/m. He has been fitted for a life vest. The patient was shown to have small bilateral effusions, 6.8 cm on the right, 2.3 cm on the left. Thoracentesis is not currently necessary as the patient is not having any distress, and is currently on room air. No current labs from August 16. All the labs from August 15 are reviewed. Blood cultures are negative. Chest x- ray from August 16, as compared to the prior x-ray, and is, unchanged. Objective - Vital Signs Vital signs: Vital Signs Temp 97.8 F 08/16/23 07:35 Pulse 72 08/16/23 11:09 Resp 20 08/16/23 11:09 BP 100/71 08/16/23 11:09 Pulse Ox 98 08/16/23 11:09 FiO2 21 08/13/23 12:31 Intake & Output 08/15/23 08/16/23 08/16/23 18:59 06:59 18:59 Intake Total 1196 198.001 Output Total 700 1600 600 Balance 496 -1600 -401.999 Weight 110 kg Intake: Intake, IV Titration 198.001 Amount DOBUTamine DRIP 500 mg In 198.001 Dextrose/Water 1 250ml. bag @ 2.5 MCG/KG/MIN 8. 165 mls/hr IV .Q24H [facility] Rx#:[id number] Oral 1196 Output: Urine 700 1600 600 Other: Voiding Method Indwelling Catheter Indwelling Catheter Indwelling Catheter # Bowel Movements 1 - Exam No acute distress, oriented 3. Currently on room air. HEENT examination is grossly unremarkable. Mucous membranes are moist. No oral lesions. Neck supple. Full range of motion. No adenopathy thyromegaly or neck vein distention. Cardiovascular examination reveals regular rhythm rate. S1-S2 normal. No S3 or S4. No discernible murmur noted. Heart sounds are distant. Heart rate 72 bpm. Lungs reveal basilar crackles. No wheezes or rhonchi. Saturations are excellent on room air. Room air saturation is 98%. Abdomen soft bowel sounds are heard. No masses or tenderness. Scrotal edema present. Extremities are intact. No cyanosis or clubbing. 1+ pitting edema. Skin is without rash or lesion. Neurologic examination is brief but nonfocal. - Labs CBC & Chem 7: 08/15/23 08:36 08/15/23 08:36 Labs: Abnormal Lab Results - Last 24 Hours (Table) 08/15/23 08/15/23 08/16/23 Range/Units 16:48 19:22 06:11 POC Glucose (mg/dL) 196 H 184 H 113 H (70-110) mg/dL 08/16/23 Range/Units 11:34 POC Glucose (mg/dL) 173 H (70-110) mg/dL Assessment and Plan Assessment: Fluid overload state, with scrotal edema, lower extremity edema, and CHF on chest x-ray. Severe cardiomyopathy, of unclear etiology. Probable acute kidney injury. History of diabetes mellitus. History of hyperlipidemia. History of hypertension. History of BPH. History of mild chronic bronchial asthma. Plan: Plan dated 08/12/2023. The patient's antibiotics will be discontinued. I don't believe the patient has pneumonia. He's not having any symptoms of pneumonia. He looks to have acute kidney injury, and a fluid overload state. He has scrotal edema, and significant lower extremity edema. The patient will need an echocardiogram to evaluate cardiac function. Additional recommendations and suggestions are forthcoming. Prognosis is guarded. Plan dated 08/15/2023. The patient is evaluated. He seen today in room 368. Cardiology has been consulted. The patient was started on dobutamine, at 2.5 mcg/kg/m by nephrolo gy. Labs, x-rays, medications are reviewed. The patient is receiving Lasix 40 mg every 8 hours, as per nephrology. His respiratory status seems recently stable. We did order an ultrasound of the chest, to see if he would benefit from thoracentesis. He has a history of bilateral pleural effusions, right greater than left. Additional recommendations and suggestions are forthcoming. Plan dated 08/16/2023. The patient is seen today in room 368. The patient continues on the dobutamine drip at 2.5 mcg/kg/m. The patient's on room air. Effusions are rather small. The patient is not receiving any IV fluids. Labs, x-rays, and medications are reviewed. The patient has been fitted for Lifevest. We will continue to follow the patient, make recommendations along the way. The patient's overall prognosis remains very guarded. The patient has a severe cardiomyopathy. Time with Patient: Less than 30
[2023-08-16 14:15] LABS: HCT 34.4 % (39.0-53.0); HGB 10.8 gm/dL (13.0-17.5); Hypochromasia Slight; MCH 26.7 pg (25.0-35.0); MCHC 31.5 g/dL (31.0-37.0); MCV 84.9 fL (80.0-100.0); Mean Platelet Volume 8.5; Platelet Count 124 k/uL (150-450); RBC 4.05 m/uL (4.30-5.90); RDW 15.7 % (11.5-15.5); WBC 3.3 k/uL (3.8-10.6)
[2023-08-16 14:24] LABS: African American GFR (CKD) 36 (>60 ml/min/1.73 sqM); Anion Gap 14 mmol/L; Blood Urea Nitrogen 63 mg/dL (9-20); Calcium 8.9 mg/dL (8.4-10.2); Carbon Dioxide 21 mmol/L (22-30); Chloride 101 mmol/L (98-107); Glucose 137 mg/dL (74-99); Non-African American GFR(CKD) 31 (>60 ml/min/1.73 sqM); Potassium 3.6 mmol/L (3.5-5.1); Sodium 136 mmol/L (137-145)
[2023-08-16 14:25] LABS: African American GFR (CKD) 36 (>60 ml/min/1.73 sqM); Anion Gap 14 mmol/L; Blood Urea Nitrogen 61 mg/dL (9-20); Calcium 8.9 mg/dL (8.4-10.2); Carbon Dioxide 20 mmol/L (22-30); Chloride 101 mmol/L (98-107); Glucose 139 mg/dL (74-99); Non-African American GFR(CKD) 31 (>60 ml/min/1.73 sqM); Potassium 3.6 mmol/L (3.5-5.1); Sodium 135 mmol/L (137-145)
[2023-08-16 14:38] LABS: Lymphocytes # (M) 0.79 k/uL (1.0-4.8); Monocytes # (M) 0.23 k/uL (0-1.0); Neutrophils # (M) 2.08 k/uL (1.3-7.7); Neutrophils % (M) 63 %; Nucleated Red Blood Cells 0 /100 WBC (0-0); Total Cells Counted 100
[2023-08-16 16:24] LABS: Glucose,Whole Blood 146 mg/dL (70-110)
[2023-08-16 20:48] LABS: Glucose,Whole Blood 92 mg/dL (70-110)
--- NOTE | 2023-08-16 22:31 | PN ---
PROGRESS NOTE DATE OF SERVICE: 08/16/2023 SUBJECTIVE: This is a 57-year-old gentleman, who was admitted with generalized edema and also CHF acute exacerbation, has possibly cardiomyopathy. The patient is on dobutamine drip at this time. The patient still has some swelling, but ascites is not much, but significant right pleural effusion has been noted, which is being followed by Pulmonary, which might require thoracocentesis. PAST MEDICAL HISTORY: Reviewed. REVIEW OF SYSTEMS: A 14-point review is negative except as mentioned earlier. CURRENT MEDICATIONS: Reviewed include Ventolin and dose and rest of medications noted. PHYSICAL EXAMINATION: VITAL SIGNS: Pulse 72, blood pressure 100/70, respirations 20. HEENT: Conjunctivae normal. NECK: No jugular venous distention. CARDIOVASCULAR: S1, S2. RESPIRATIONS: Breath sounds diminished at the bases. Scattered rhonchi. ABDOMEN: Soft. NERVOUS SYSTEM: Nonfocal. LABORATORY DATA: Hemoglobin 11. Otherwise, sodium 133, creatinine is 2.49. ASSESSMENT: 1. Generalized edema as well as scrotal edema and ascites, possibly congestive heart failure acute exacerbation and acute on chronic systolic dysfunction with possible cardiomyopathy. 2. Possible cirrhosis of liver with ascites. 3. Right pleural effusion. 4. Acute renal failure, multifactorial. 5. Pneumonia unlikely per ID. 6. Diabetes mellitus, type 2. 7. History of cataracts. 8. Depression. 9. Multiple medical issues. 10.History of bicytopenia. RECOMMENDATIONS: Recommended to continue current management, continue symptomatic treatment. Continue with dobutamine drip and continue with Lasix. The patient appears to be diuresing, but we will continue to monitor. Further recommendations to follow. MMODL / IJN: [id number] /
[2023-08-17 06:05] LABS: Glucose,Whole Blood 195 mg/dL (70-110)
[2023-08-17] MEDS: MIDODRINE 5 MG TAB PO SCH ×3 (06:12→16:52)
[2023-08-17] MEDS: ALPRAZolam 0.25 MG TAB PO PRN ×2 (06:12→20:09)
[2023-08-17] MEDS: carvediloL 3.125 MG TAB PO SCH ×2 (06:12→16:53)
[2023-08-17] MEDS: INSULIN ASPART (NovoLOG) 100 UNIT/ML VIAL SQ SCH ×7 (06:45→20:16)
[2023-08-17] MEDS: FUROSEMIDE 10 MG/ML 4 ML VIAL IV SCH ×3 (07:34→22:37)
[2023-08-17] MEDS: HEPARIN SODIUM,PORCINE 5,000 UNIT/ML 1 ML VIAL SQ SCH ×2 (07:34→20:09)
[2023-08-17] MEDS: TAMSULOSIN 0.4 MG CAP.ER.24H PO SCH (07:34)
[2023-08-17] MEDS: lamoTRIgine 100 MG TAB PO SCH (07:34)
[2023-08-17] MEDS: ATORVASTATIN 10 MG TAB PO SCH (07:34)
[2023-08-17] MEDS: DOBUTamine DRIP 500 MG in DEXTROSE/WATER 1 250ML.BAG IV SCH (08:46)
[2023-08-17] MEDS: NYSTATIN 100,000 UNIT/GM POWD 15 GM TOPICAL SCH ×2 (08:46→20:16)
--- NOTE | 2023-08-17 09:25 | P.PN ---
Subjective Progress Note Date: 08/17/23 Principal diagnosis: Cardiomyopathy The patient is a pleasant 57-year-old gentleman with history of alcohol use before and history of marijuana use as well as multiple comorbid conditions was admitted to the hospital with heart failure was diagnosed with severe cardiomyopathy. Also he was in renal failure. He was seen and evaluated this morning. He is feeling better. He continues to have bilateral lower extremity edema. Creatinine remains elevated. Nephrology is on the case. I informed the patient that heart catheterization at certain point need to be done but with conduit in the light of the renal failure at this point. No pain in the chest. The pressure remains soft. The examination is remarkable for severe bilateral lower extremity edema otherwise he has a regular rhythm was. Breathing sounds bilaterally. Assessment Severe cardiomyopathy Heart failure secondary to systolic dysfunction Renal failure History of smoking History of drug abuse Plan Continue the current medical regimen Continue beta lee Consider maximize medical treatment for cardiomyopathy once the pressure permits and the kidney function improved Consider ruling out severe CAD down the line Objective - Vital Signs Vital signs: Vital Signs Temp 98.1 F 08/17/23 07:25 Pulse 81 08/17/23 07:25 Resp 16 08/17/23 07:25 BP 99/67 08/17/23 07:25 Pulse Ox 98 08/17/23 08:20 FiO2 21 08/13/23 12:31 Intake & Output 08/16/23 08/17/23 08/17/23 18:59 06:59 18:59 Intake Total 438.001 329.267 Output Total 9865 285 7086 Balance -736.999 -850 -970.733 Intake: IV 10 Invasive Line 3 10 Intake, IV Titration 198.001 201.267 Amount DOBUTamine DRIP 500 mg In 198.001 201.267 Dextrose/Water 1 250ml. bag @ 2.5 MCG/KG/MIN 8. 165 mls/hr IV .Q24H [facility] Rx#:[id number] Oral 240 118 Output: Urine [id number] [id number] Other: Voiding Method Indwelling Catheter Indwelling Catheter Indwelling Catheter - Labs CBC & Chem 7: 08/16/23 13:04 08/16/23 13:04 Labs: Abnormal Lab Results - Last 24 Hours (Table) 08/16/23 08/16/23 08/16/23 Range/Units 11:34 13:04 13:04 WBC 3.3 L (3.8-10.6) k/uL RBC 4.05 L (4.30-5.90) m/uL Hgb 10.8 L (13.0-17.5) gm/dL Hct 34.4 L (39.0-53.0) % RDW 15.7 H (11.5-15.5) % Plt Count 124 L (150-450) k/uL Lymphocytes # (Manual) 0.79 L (1.0-4.8) k/uL Sodium 135 L (137-145) mmol/L Carbon Dioxide 20 L (22-30) mmol/L BUN 61 H (9-20) mg/dL Creatinine 2.25 H (0.66-1.25) mg/dL Glucose 139 H (74-99) mg/dL POC Glucose (mg/dL) 173 H (70-110) mg/dL 08/16/23 08/16/23 08/17/23 Range/Units 13:04 16:18 06:04 WBC (3.8-10.6) k/uL RBC (4.30-5.90) m/uL Hgb (13.0-17.5) gm/dL Hct (39.0-53.0) % RDW (11.5-15.5) % Plt Count (150-450) k/uL Lymphocytes # (Manual) (1.0-4.8) k/uL Sodium 136 L (137-145) mmol/L Carbon Dioxide 21 L (22-30) mmol/L BUN 63 H (9-20) mg/dL Creatinine 2.25 H (0.66-1.25) mg/dL Glucose 137 H (74-99) mg/dL POC Glucose (mg/dL) 146 H 195 H (70-110) mg/dL Microbiology - Last 24 Hours (Table) 08/11/23 21:41 Blood Culture - Final Blood 08/11/23 21:33 Blood Culture - Final Blood
--- NOTE | 2023-08-17 11:11 | P.PN ---
Subjective Patient is seen for follow-up for acute kidney injury and volume overload. EF 15-20% Blood pressure has been low. Started on midodrine. Maintained on dobutamine at 2.5 mcg/kg Urine output at 2 L for 24 hours. Serum creatinine slightly lower at 2.2 yesterday.. Maintained on Lasix 40 mg IV every 12 hours Scrotal swelling slightly improved. Objective - Vital Signs Vital signs: Vital Signs Temp 98.1 F 08/17/23 07:25 Pulse 81 08/17/23 07:25 Resp 16 08/17/23 07:25 BP 99/67 08/17/23 07:25 Pulse Ox 98 08/17/23 08:20 FiO2 21 08/13/23 12:31 Intake & Output 08/16/23 08/17/23 08/17/23 18:59 06:59 18:59 Intake Total 438.001 329.267 Output Total 9778 553 8486 Balance -736.999 -850 -970.733 Intake: IV 10 Invasive Line 3 10 Intake, IV Titration 198.001 201.267 Amount DOBUTamine DRIP 500 mg In 198.001 201.267 Dextrose/Water 1 250ml. bag @ 2.5 MCG/KG/MIN 8. 165 mls/hr IV .Q24H [facility] Rx#:[id number] Oral 240 118 Output: Urine 0556 [id number] Other: Voiding Method Indwelling Catheter Indwelling Catheter Indwelling Catheter - Exam Patient is awake, comfortable, no acute distress Examination of the heart S1 and S2 Examination of the lungs decreased breath sounds at the bases Abdomen is soft distended nontender, obese, scrotal edema Examination lower extremities shows edema 2+ bilaterally [employer]PING[employer]RECEIVING [employer] exam grossly intact - Labs CBC & Chem 7: 08/16/23 13:04 08/16/23 13:04 Labs: Abnormal Lab Results - Last 24 Hours (Table) 08/16/23 08/16/23 08/16/23 Range/Units 11:34 13:04 13:04 WBC 3.3 L (3.8-10.6) k/uL RBC 4.05 L (4.30-5.90) m/uL Hgb 10.8 L (13.0-17.5) gm/dL Hct 34.4 L (39.0-53.0) % RDW 15.7 H (11.5-15.5) % Plt Count 124 L (150-450) k/uL Lymphocytes # (Manual) 0.79 L (1.0-4.8) k/uL Sodium 135 L (137-145) mmol/L Carbon Dioxide 20 L (22-30) mmol/L BUN 61 H (9-20) mg/dL Creatinine 2.25 H (0.66-1.25) mg/dL Glucose 139 H (74-99) mg/dL POC Glucose (mg/dL) 173 H (70-110) mg/dL 08/16/23 08/16/23 08/17/23 Range/Units 13:04 16:18 06:04 WBC (3.8-10.6) k/uL RBC (4.30-5.90) m/uL Hgb (13.0-17.5) gm/dL Hct (39.0-53.0) % RDW (11.5-15.5) % Plt Count (150-450) k/uL Lymphocytes # (Manual) (1.0-4.8) k/uL Sodium 136 L (137-145) mmol/L Carbon Dioxide 21 L (22-30) mmol/L BUN 63 H (9-20) mg/dL Creatinine 2.25 H (0.66-1.25) mg/dL Glucose 137 H (74-99) mg/dL POC Glucose (mg/dL) 146 H 195 H (70-110) mg/dL Microbiology - Last 24 Hours (Table) 08/11/23 21:41 Blood Culture - Final Blood 08/11/23 21:33 Blood Culture - Final Blood Assessment and Plan Assessment: 1. Acute kidney injury ATN, nonoliguric and component of cardiorenal syndrome. Blood pressure remains low with worsening renal function. Started on dobutamine.. No evidence of obstruction on ultrasound. UA is quite benign with 1+ protein. 2. Previous episodes of acute kidney injury in March 2023. 3. Volume overload with severe scrotal edema 4. Acute on chronic systolic CHF with EF of 15-20%. Plan: Increase dobutamine to 5 mcg/kg Repeat labs in a.m. Accurate I's and O's Continue current dose of IV Lasix
[2023-08-17 11:46] LABS: Glucose,Whole Blood 98 mg/dL (70-110)
--- NOTE | 2023-08-17 14:38 | P.PN ---
Subjective Progress Note Date: 08/17/23 Principal diagnosis: Shortness of breath, scrotal edema, lower extremity edema. 57-year-old male who presents to the emergency department, on August 11. He was brought in by EMS. The patient essentially presented with lower extremity edema, and scrotal edema. The patient denied any respiratory issues including shortness of breath, cough, wheezing, chest tightness, or phlegm production. The patient apparently is been smoking a lot of marijuana recently, and has not been taking his insulin recently. He seems rather strange to me, and that his history was a bit disoriented. Nonetheless, he did have scrotal edema, and lower extremity edema. He apparently has a history of asthma, which is mild, diabetes, hyperlipidemia, hypertension, and BPH. White count 5.6, hemoglobin 11, hematocrit 35.7, and platelet count 146,000. Coagulation studies were normal. Sodium 135, potassium 5, chlorides 105, CO2 18, anion gap 12, BUN 46, creatinine 2.36. Glucose 112. BNP was 7080. Pro-calcitonin level was 0.07. The patient will need an echocardiogram. The patient's renal ultrasound appeared normal. In our opinion, the chest x-ray was most consistent with fluid overload, and not pneumonia. The normal pro-calcitonin level and elevated N- terminal proBNP, supports that notion. The patient is seen today 08/13/2023 in follow-up on the regular medical floor. He is currently resting comfortably in bed. Awake and alert in no acute distress. He is maintaining good O2 saturations in the mid 90s on room air. He is afebrile. Hemodynamically stable. Continues with scrotal, abdominal and lower extremity edema. Echocardiogram revealed diffuse global hypokinesis with severe left ventricular systolic function and an ejection fraction of 15-20%. Blood cultures revealed no growth. White count 4.9. Hemoccult and 10.2. Platelets 125. Sodium 135. Potassium 4.7. Bicarb 19. BUN 48. Creatinine 2.7. Glucose 134. Hemoglobin A1c 6.8. Procalcitonin was negative at 0.08. Antibiotics will be discontinued. He is continued on IV diuretics. The patient is seen today 08/14/2023 in follow-up on the regular medical floor. He is awake and alert in no acute distress. Resting comfortably in bed. He is maintaining O2 saturations in the 90s on room air. He's been afebrile. Hemodynamically stable. Sodium 136. Potassium 4.7. Bicarb 20. BUN 59. Creatinine 2.63. Glucose 138. He is continued on bronchodilators. Heparin for DVT prophylaxis. Remains on IV diuretics. -1.2 L balance. Progress note dated 08/15/2023. The patient is seen today in room 368. He's currently on room air. He's on dobutamine at 2.5 mcg/kg/m, ordered by nephrology. Patient has bilateral effusions, right greater than left. An ultrasound was ordered. White count 4.4, hemoglobin 11, hematocrit 35.9, platelet count 128,000. Sodium 133, potassium 4.2, chlorides 100, CO2 19, anion gap 14, BUN 60, creatinine 2.49. Progress note dated 08/16/2023. 57-year-old male, seen today in room 368. Currently, the patient's on room air. Is not receiving any IV fluids. The patient continues on dobutamine, at 2.5 mcg/kg/m. He has been fitted for a life vest. The patient was shown to have small bilateral effusions, 6.8 cm on the right, 2.3 cm on the left. Thoracentesis is not currently necessary as the patient is not having any distress, and is currently on room air. No current labs from August 16. All the labs from August 15 are reviewed. Blood cultures are negative. Chest x- ray from August 16, as compared to the prior x-ray, and is, unchanged. Progress note dated 08/17/2023. 57-year-old male, seen today in room 368. The patient's currently on room air. He is not receiving any IV fluids. He does continue on dobutamine, ordered by nephrology, at 2.5 mcg/kg/m. The patient was found to have a very poor ejection fraction on echocardiogram. He has been fitted for a Lifevest. No current labs today other than a glucose of 98. Chest x-rays have remained relatively stable. Objective - Vital Signs Vital signs: Vital Signs Temp 97.1 F L 08/17/23 11:55 Pulse 86 08/17/23 11:55 Resp 20 08/17/23 11:55 BP 90/66 08/17/23 11:55 Pulse Ox 98 08/17/23 11:55 FiO2 21 08/13/23 12:31 Intake & Output 08/16/23 08/17/23 08/17/23 18:59 06:59 18:59 Intake Total 438.001 329.267 Output Total 9610 319 8053 Balance -736.999 -850 -1470.733 Intake: IV 10 Invasive Line 3 10 Intake, IV Titration 198.001 201.267 Amount DOBUTamine DRIP 500 mg In 198.001 201.267 Dextrose/Water 1 250ml. bag @ 5 MCG/KG/MIN 16.329 mls/hr IV .[id number] [facility] Rx#:[id number] Oral 240 118 Output: Urine [id number] [id number] Other: Voiding Method Indwelling Catheter Indwelling Catheter Indwelling Catheter - Exam No acute distress, oriented 3. Currently on room air. HEENT examination is grossly unremarkable. Mucous membranes are moist. No oral lesions. Neck supple. Full range of motion. No adenopathy thyromegaly or neck vein distention. Cardiovascular examination reveals regular rhythm rate. S1-S2 normal. No S3 or S4. No discernible murmur noted. Heart sounds are distant. Heart rate 66 bpm. Lungs reveal basilar crackles. No wheezes or rhonchi. Saturations are excellent on room air. Room air saturation is 97 %. Abdomen soft bowel sounds are heard. No masses or tenderness. Scrotal edema present. Extremities are intact. No cyanosis or clubbing. 1+ pitting edema. Skin is without rash or lesion. Neurologic examination is brief but nonfocal. - Labs CBC & Chem 7: 08/16/23 13:04 08/16/23 13:04 Labs: Abnormal Lab Results - Last 24 Hours (Table) 08/16/23 08/16/23 08/17/23 Range/Units 13:04 16:18 06:04 Lymphocytes # (Manual) 0.79 L (1.0-4.8) k/uL POC Glucose (mg/dL) 146 H 195 H (70-110) mg/dL Microbiology - Last 24 Hours (Table) 08/11/23 21:41 Blood Culture - Final Blood 08/11/23 21:33 Blood Culture - Final Blood Assessment and Plan Assessment: Fluid overload state, with scrotal edema, lower extremity edema, and CHF on chest x-ray. Severe cardiomyopathy, of unclear etiology. Probable acute kidney injury. History of diabetes mellitus. History of hyperlipidemia. History of hypertension. History of BPH. History of mild chronic bronchial asthma. Plan: Plan dated 08/12/2023. The patient's antibiotics will be discontinued. I don't believe the patient has pneumonia. He's not having any symptoms of pneumonia. He looks to have acute kidney injury, and a fluid overload state. He has scrotal edema, and significant lower extremity edema. The patient will need an echocardiogram to evaluate cardiac function. Additional recommendations and suggestions are forthcoming. Prognosis is guarded. Plan dated 08/15/2023. The patient is evaluated. He seen today in room 368. Cardiology has been consulted. The patient was started on dobutamine, at 2.5 mcg/kg/m by nephrology. Labs, x-rays, medications are reviewed. The patient is receiving Lasix 40 mg every 8 hours, as per nephrology. His respiratory status seems recently stable. We did order an ultrasound of the chest, to see if he would benefit from thoracentesis. He has a history of bilateral pleural effusions, right greater than left. Additional recommendations and suggestions are forthcoming. Plan dated 08/16/2023. The patient is seen today in room 368. The patient continues on the dobutamine drip at 2.5 mcg/kg/m. The patient's on room air. Effusions are rather small. The patient is not receiving any IV fluids. Labs, x-rays, and medications are reviewed. The patient has been fitted for Lifevest. We will continue to follow the patient, make recommendations along the way. The patient's overall prognos is remains very guarded. The patient has a severe cardiomyopathy. Plan dated 08/17/2023. The patient continues on dobutamine at 2.5 mcg/kg/m. Clinically, the patient is stable to slightly improved. He still has lower extremity edema, and some scrotal edema. Labs, x-rays, and medications are reviewed. He is on room air. Saturations are 98%. We will continue to follow make recommendations along the way. The patient's overall prognosis remains guarded. The patient does need to get out of bed a bit more, sit up in chair, and do some exercise in the room. Time with Patient: Less than 30
[2023-08-17 16:39] LABS: Glucose,Whole Blood 156 mg/dL (70-110)
[2023-08-17 20:01] LABS: Glucose,Whole Blood 108 mg/dL (70-110)
[2023-08-18] MEDS: DOBUTamine DRIP 500 MG in DEXTROSE/WATER 1 250ML.BAG IV SCH ×2 (00:39→15:11)
--- NOTE | 2023-08-18 05:40 | PN ---
PROGRESS NOTE DATE OF SERVICE: 08/17/2023 SUBJECTIVE: This 57-year-old gentleman was admitted with generalized edema and CHF, also had cardiomyopathy, renal failure, also the patient is on dobutamine drip at this time. The patient appears to be diuresing well. The patient is also on diuretics. Multiple consultants are following the patient closely. The creatinine is 2.25. The most recent chest x-ray, which was done yesterday and reviewed personally by me showed significant pleural effusion on the left side. Ascites is minimal according to the investigations. PAST MEDICAL HISTORY: Reviewed. REVIEW OF SYSTEMS: 14-point review is negative except as mentioned above. CURRENT MEDICATIONS: Reviewed include dobutamine drip and rest of medication doses reviewed. PHYSICAL EXAMINATION: VITAL SIGNS: Pulse 86, blood pressure 90/62, respirations 20. HEENT: Conjunctivae normal. NECK: No jugular venous distention. CARDIOVASCULAR: S1, S2. RESPIRATIONS: Breath sounds diminished at the bases. ABDOMEN: Soft. Obese. Ascites. LEGS: Minimal bilateral leg edema. NERVOUS SYSTEM: Nonfocal. LABS: Platelets are 124 and WBC 3.3 and creatinine is 2.25. ASSESSMENT: 1. Generalized edema as well as scrotal edema, ascites, possible CHF acute exacerbation with acute on chronic systolic dysfunction, possible cardiomyopathy. 2. Mild pancytopenia of undetermined etiology. 3. Possible cirrhosis of liver with ascites. 4. Right pleural effusion. 5. Acute renal failure, multifactorial. 6. Pneumonia, unlikely per ID. 7. Diabetes mellitus, type 2. 8. History of cataracts. 9. Depression. 10.History of bicytopenia. 11.Multiple medical issues. RECOMMENDATIONS: Recommended to continue current management, continue symptomatic treatment, otherwise, continue with dopamine. Monitor fluid electrolyte balance closely. Repeat chest x- ray. Continue with Lasix. Follow closely with multiple consultants. Monitor blood sugars closely. DVT prophylaxis. Guarded prognosis. Further recommendations to follow. See orders for details. MMODL / IJN: [id number] /
[2023-08-18 06:20] LABS: Glucose,Whole Blood 111 mg/dL (70-110)
[2023-08-18] MEDS: INSULIN ASPART (NovoLOG) 100 UNIT/ML VIAL SQ SCH ×7 (06:21→21:40)
[2023-08-18] MEDS: MIDODRINE 5 MG TAB PO SCH ×3 (06:26→16:52)
[2023-08-18] MEDS: carvediloL 3.125 MG TAB PO SCH ×2 (06:26→16:52)
[2023-08-18 07:55] LABS: Basophils % (A) 1 %; Eosinophils # (A) 0.1 k/uL (0-0.7); Eosinophils % (A) 3 %; HCT 32.1 % (39.0-53.0); HGB 10.2 gm/dL (13.0-17.5); Hypochromasia Slight; Lymphocytes % (A) 23 %; MCH 26.9 pg (25.0-35.0); MCHC 31.9 g/dL (31.0-37.0); MCV 84.5 fL (80.0-100.0); Monocytes # (A) 0.3 k/uL (0-1.0); Monocytes % (A) 6 %; Neutrophils # (A) 2.6 k/uL (1.3-7.7); Neutrophils % (A) 63 %; Platelet Count 137 k/uL (150-450); RDW 15.7 % (11.5-15.5); WBC 4.2 k/uL (3.8-10.6)
[2023-08-18 08:24] VITALS: BMI 38.8
[2023-08-18] MEDS: TAMSULOSIN 0.4 MG CAP.ER.24H PO SCH (09:04)
[2023-08-18] MEDS: ATORVASTATIN 10 MG TAB PO SCH (09:04)
[2023-08-18] MEDS: FUROSEMIDE 10 MG/ML 4 ML VIAL IV SCH ×3 (09:04→23:39)
[2023-08-18] MEDS: lamoTRIgine 100 MG TAB PO SCH (09:06)
[2023-08-18] MEDS: NYSTATIN 100,000 UNIT/GM POWD 15 GM TOPICAL SCH ×2 (09:06→21:42)
[2023-08-18] MEDS: HEPARIN SODIUM,PORCINE 5,000 UNIT/ML 1 ML VIAL SQ SCH ×2 (09:06→21:41)
[2023-08-18 09:26] LABS: ALT 21 U/L (4-49); AST 32 U/L (17-59); African American GFR (CKD) 39 (>60 ml/min/1.73 sqM); Albumin 3.4 g/dL (3.5-5.0); Alkaline Phosphatase 107 U/L (38-126); Anion Gap 9 mmol/L; Blood Urea Nitrogen 58 mg/dL (9-20); Calcium 8.7 mg/dL (8.4-10.2); Carbon Dioxide 24 mmol/L (22-30); Chloride 102 mmol/L (98-107); Glucose 96 mg/dL (74-99); Non-African American GFR(CKD) 34 (>60 ml/min/1.73 sqM); Potassium 3.5 mmol/L (3.5-5.1); Sodium 135 mmol/L (137-145); Total Bilirubin 0.9 mg/dL (0.2-1.3); Total Protein 6.4 g/dL (6.3-8.2)
[2023-08-18 11:31] LABS: Glucose,Whole Blood 115 mg/dL (70-110)
--- NOTE | 2023-08-18 13:05 | PN ---
PROGRESS NOTE DATE OF SERVICE: 08/18/2023 SUBJECTIVE: This is a 57-year-old gentleman who was admitted with generalized edema and scrotal edema as well as CHF exacerbation and closely monitored. The patient is on dobutamine drip. The patient is diuresing. OBJECTIVE: VITAL SIGNS: Pulse 83, blood pressure 98/60, respirations 16. CHEST: Few scattered rhonchi. ABDOMEN: Soft, ascites, hydroceles present. LABORATORY DATA: Creatinine 2.14. ASSESSMENT: 1. Generalized edema as well as scrotal edema, ascites, pleural effusion, possibly CHF acute exacerbation, acute on chronic systolic dysfunction, possible cardiomyopathy. 2. Mild pancytopenia of undetermined etiology. 3. Possible cirrhosis of the liver with ascites. 4. Right pleural effusion. 5. Acute renal failure, multifactorial. 6. Pneumonia, unlikely per ID. 7. Diabetes mellitus, type 2. 8. History of cataracts. 9. History of depression. 10.History of bicytopenia. 11.Multiple medical issues. RECOMMENDATIONS: Recommended to continue current management, continue symptomatic treatment, otherwise at this time I would recommend continue to monitor. Repeat chest x-ray. Continue with dobutamine. Prognosis is guarded because of multiple complex medical issues. Further recommendations to follow. See orders for details. MMODL / IJN: [id number] /
[2023-08-18] MEDS ORDERED: POTASSIUM CHLORIDE ER 20 MEQ TAB.ER PO STA (13:08)
--- NOTE | 2023-08-18 13:09 | P.PN ---
Subjective Patient is seen in follow-up for acute kidney injury on chronic kidney disease. Patient's on dobutamine and IV Lasix. Nonoliguric. Denies chest pain or shortness of breath. On room air. Vital signs are stable. General: No acute distress. HEENT: Head exam is unremarkable. LUNGS: Notable rhonchi or wheezes. HEART: Rate and Rhythm are regular. ABDOMEN: Nontender, obese. EXTREMITITES: 2+ edema. Objective - Vital Signs Vital signs: Vital Signs Temp 97.8 F 08/18/23 09:03 Pulse 86 08/18/23 12:02 Resp 16 08/18/23 12:02 BP 92/64 08/18/23 12:02 Pulse Ox 98 08/18/23 12:02 FiO2 21 08/13/23 12:31 Intake & Output 08/17/23 08/18/23 08/18/23 18:59 06:59 18:59 Intake Total 329.267 369.687 180 Output Total 1975 1550 600 Balance -1645.733 -1180.313 -420 Weight 115.8 kg 115.8 kg Intake: IV 10 Invasive Line 3 10 Intake, IV Titration 201.267 129.687 Amount DOBUTamine DRIP 500 mg In 201.267 129.687 Dextrose/Water 1 250ml. bag @ 5 MCG/KG/MIN 16.329 mls/hr IV .[id number] [facility] Rx#:[id number] Oral 118 240 180 Output: Urine 1974 1550 600 Other: Voiding Method Indwelling Catheter Indwelling Catheter Indwelling Catheter # Bowel Movements 1 - Labs CBC & Chem 7: 08/18/23 07:40 08/18/23 07:40 Labs: Abnormal Lab Results - Last 24 Hours (Table) 08/17/23 08/18/23 08/18/23 Range/Units 16:37 06:19 07:40 RBC 3.80 L (4.30-5.90) m/uL Hgb 10.2 L (13.0-17.5) gm/dL Hct 32.1 L (39.0-53.0) % RDW 15.7 H (11.5-15.5) % Plt Count 137 L (150-450) k/uL Sodium (137-145) mmol/L BUN (9-20) mg/dL Creatinine (0.66-1.25) mg/dL POC Glucose (mg/dL) 156 H 111 H (70-110) mg/dL Albumin (3.5-5.0) g/dL 08/18/23 08/18/23 Range/Units 07:40 11:18 RBC (4.30-5.90) m/uL Hgb (13.0-17.5) gm/dL Hct (39.0-53.0) % RDW (11.5-15.5) % Plt Count (150-450) k/uL Sodium 135 L (137-145) mmol/L BUN 58 H (9-20) mg/dL Creatinine 2.14 H (0.66-1.25) mg/dL POC Glucose (mg/dL) 115 H (70-110) mg/dL Albumin 3.4 L (3.5-5.0) g/dL Assessment and Plan Plan: Assessment: 1. Acute kidney injury secondary to ATN secondary to cardiorenal syndrome. Renal function stable. Creatinine 2.14 today. No hydronephrosis noted on CT. 2. Chronic kidney disease stage III with baseline creatinine 1.3-1.5 in March 2023. Suspect diabetic kidney disease. 3. Acute on chronic systolic CHF with ejection fraction of 15-20% with moderate mitral and tricuspid regurgitation. 4. Volume overload. 5. Anemia of chronic kidney disease. Rule out iron deficiency. 6. Mild hypokalemia from diuresis. Plan: Maintain dobutamine and IV Lasix. Low-salt diet and 1500 mL fluid restriction. Replace potassium. Continue to monitor renal function and urine output. Maintain midodrine.
--- NOTE | 2023-08-18 14:20 | P.PN ---
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 He has a past medical history of smoking marijuana, diabetes. We have been asked to evaluate the patient for cardiomyopathy. Patient's main concern is that he states he has been vaping Reema a lot lately. He has developed shortness of breath for at least the last month. He is not sure when his breathing was normal but maybe a couple months ago. He states he has filed for disability. Regarding alcohol, he states he stopped drinking 6 months ago. Patient is not clear how much he was drinking at home other than a couple 12 cans a couple times a week. Patient was admitted to the hospital for lower extremity edema, scrotal edema, acute kidney injury and seen by pulmonary medicine and nephrology. He has been started on IV Lasix by nephrology of 40 mg every 12 hours. EKG sinus rhythm, incomplete right bundle branch block Chest x-ray: 08/12 right midlung pneumonia, small right pleural effusion. WBC 4.9, hemoglobin 10.2, platelet count 125. Sodium 135, potassium 4.7, BUN 40 creatinine 2.7. Magnesium 2.1. Hemoglobin A1c 6.8. Liver function tests are normal. ProBNP 7080. Pro-calcitonin 0.08. Home cardiac medications: Zocor 20 mg daily. Echocardiogram performed 08/12/2023 reveals severe LV systolic dysfunction with EF of 15-20%, moderate mitral regurgitation, moderate tricuspid regurgitation. 08/14 Patient had episode of chest pain this morning. He feels that it was related to a panic attack. He states that shortness of breath is improving he is able to lay flat. Lower extremity edema is improving but he states he still has scrotal edema. Blood pressure is lower today 90/60. 08/18 Patient denies having any chest pain or shortness of breath. He is not requiring oxygen. Patient remains on dobutamine drip per nephrology and also on IV Lasix 40 mg every 8 hours per nephrology. Blood pressure 98/66, heart rate in the 80s. Creatinine 2.14 and BUN 58, potassium 3.5. Hemoglobin 10.2. Patient have a LifeVest in place. Physical examination: Gen: This is a 57-year-old male in no acute distress. VS: reviewed HEENT: Head is atraumatic, normocephalic. Pupils equal, round. Sclerae is anicteric. LUNGS: Few basilar crackles. No intercostal retractions. HEART: Regular rate and rhythm. No murmur. EXTREMITIES: +2 pedal edema. No calf tenderness. NEUROLOGICAL: Patient is awake, alert and oriented x3. Assessment: Acute systolic heart failure Cardiomyopathy of unclear etiology Bicytopenia with anemia and thrombocytopenia Acute kidney injury Hyperlipidemia Hypertension Diabetes Vaping/marijuana Plan: Continue patient's home cardiac medication Continue patient on Coreg 3.125 mg twice daily Continue patient on dobutamine, IV Lasix and midodrine per nephrology Once kidney function is improved, patient will need to undergo cardiac catheterization or stress testing as an outpatient Patient may require AICD Patient has LifeVest Further recommendations to follow based upon clinical course Nurse practitioner note has been reviewed, I agree with documented findings and plan of care. Patient was seen and examined. Objective - Vital Signs Vital signs: Vital Signs Temp 97.8 F 08/18/23 09:03 Pulse 86 08/18/23 12:02 Resp 16 08/18/23 12:02 BP 92/64 08/18/23 12:02 Pulse Ox 98 08/18/23 12:02 FiO2 21 08/13/23 12:31 Intake & Output 08/17/23 08/18/23 08/18/23 18:59 06:59 18:59 Intake Total 329.267 369.687 180 Output Total 1974 1550 600 Balance -1645.733 -1180.313 -420 Weight 115.8 kg 115.8 kg Intake: IV 10 Invasive Line 3 10 Intake, IV Titration 201.267 129.687 Amount DOBUTamine DRIP 500 mg In 201.267 129.687 Dextrose/Water 1 250ml. bag @ 5 MCG/KG/MIN 16.329 mls/hr IV .[id number] [facility] Rx#:[id number] Oral 118 240 180 Output: Urine 1974 1550 600 Other: Voiding Method Indwelling Catheter Indwelling Catheter Indwelling Catheter # Bowel Movements 1 - Labs CBC & Chem 7: 08/18/23 07:40 08/18/23 07:40 Labs: Abnormal Lab Results - Last 24 Hours (Table) 08/17/23 08/18/23 08/18/23 Range/Units 16:37 06:19 07:40 RBC 3.80 L (4.30-5.90) m/uL Hgb 10.2 L (13.0-17.5) gm/dL Hct 32.1 L (39.0-53.0) % RDW 15.7 H (11.5-15.5) % Plt Count 137 L (150-450) k/uL Sodium (137-145) mmol/L BUN (9-20) mg/dL Creatinine (0.66-1.25) mg/dL POC Glucose (mg/dL) 156 H 111 H (70-110) mg/dL Albumin (3.5-5.0) g/dL 08/18/23 08/18/23 Range/Units 07:40 11:18 RBC (4.30-5.90) m/uL Hgb (13.0-17.5) gm/dL Hct (39.0-53.0) % RDW (11.5-15.5) % Plt Count (150-450) k/uL Sodium 135 L (137-145) mmol/L BUN 58 H (9-20) mg/dL Creatinine 2.14 H (0.66-1.25) mg/dL POC Glucose (mg/dL) 115 H (70-110) mg/dL Albumin 3.4 L (3.5-5.0) g/dL
[2023-08-18 16:08] LABS: Glucose,Whole Blood 163 mg/dL (70-110)
[2023-08-18 16:45] LABS: % Iron Saturation 6.52 (15.00-50.00)
--- NOTE | 2023-08-18 16:50 | P.PN ---
Subjective Progress Note Date: 08/18/23 on 08/18/2023, I am seeing the patient for a follow-up regarding CHF and volume overload. The patient was hospitalized for worsening shortness of breath. He is established to have a severe cardiomyopathy of unknown cause and his ejection fraction is around 50 to 20% and the patient presented with scrotal edema and lower extremity edema and he was also experiencing shortness of breath cough chest tightness and wheezing. proBNP level was elevated. The patient also had developed an acute kidney injury secondary to acute cardiorenal factors. Unable to do cardiac catheterization because of his renal failure at this point. Does not have an AICD. The patient is currently on dobutamine running at 5 mcg/kg/min. He is also on IV Lasix. He is nonoliguric. His acute kidney injury is attributed to acute cardiorenal factors. Nephrology on the case. Cardiology on the case. The patient is currently on dobutamine running at 5 mcg/kg/min. Chest x-ray findings have remained stable and the patient is currently on room air oxygen with a pulse ox of 98%. Objective - Vital Signs Vital signs: Vital Signs Temp 97.8 F 08/18/23 09:03 Pulse 89 08/18/23 15:10 Resp 16 08/18/23 15:10 BP 99/62 08/18/23 15:10 Pulse Ox 97 08/18/23 15:10 FiO2 21 08/13/23 12:31 Intake & Output 08/17/23 08/18/23 08/18/23 18:59 06:59 18:59 Intake Total 329.267 369.687 298.665 Output Total 1974 1550 1200 Balance -1645.733 -1180.313 -901.335 Weight 115.8 kg 115.8 kg Intake: IV 10 Invasive Line 3 10 Intake, IV Titration 201.267 129.687 118.665 Amount DOBUTamine DRIP 500 mg In 201.267 129.687 118.665 Dextrose/Water 1 250ml. bag @ 5 MCG/KG/MIN 16.329 mls/hr IV .[id number] [facility] Rx#:[id number] Oral 118 240 180 Output: Urine 1974 1550 1200 Other: Voiding Method Indwelling Catheter Indwelling Catheter Indwelling Catheter # Bowel Movements 1 - Exam No acute distress, oriented 3. Currently on room air. HEENT examination is grossly unremarkable. Mucous membranes are moist. No oral lesions. Neck supple. Full range of motion. No adenopathy thyromegaly or neck vein distention. Cardiovascular examination reveals regular rhythm rate. S1-S2 normal. No S3 or S4. No discernible murmur noted. Heart sounds are distant. Heart rate 66 bpm. Lungs reveal basilar crackles. No wheezes or rhonchi. Saturations are excellent on room air. Room air saturation is 97 %. Abdomen soft bowel sounds are heard. No masses or tenderness. Scrotal edema present. Extremities are intact. No cyanosis or clubbing. 1+ pitting edema. Skin is without rash or lesion. Neurologic examination is brief but nonfocal. - Labs CBC & Chem 7: 08/18/23 07:40 08/18/23 07:40 Labs: Abnormal Lab Results - Last 24 Hours (Table) 08/18/23 08/18/23 08/18/23 Range/Units 06:19 07:40 07:40 RBC 3.80 L (4.30-5.90) m/uL Hgb 10.2 L (13.0-17.5) gm/dL Hct 32.1 L (39.0-53.0) % RDW 15.7 H (11.5-15.5) % Plt Count 137 L (150-450) k/uL Sodium 135 L (137-145) mmol/L BUN 58 H (9-20) mg/dL Creatinine 2.14 H (0.66-1.25) mg/dL POC Glucose (mg/dL) 111 H (70-110) mg/dL Iron (65-175) UG/DL % Saturation (15.00-50.00) Transferrin (204.0-354.0) mg/dL Albumin 3.4 L (3.5-5.0) g/dL 08/18/23 08/18/23 08/18/23 Range/Units 07:40 11:18 16:06 RBC (4.30-5.90) m/uL Hgb (13.0-17.5) gm/dL Hct (39.0-53.0) % RDW (11.5-15.5) % Plt Count (150-450) k/uL Sodium (137-145) mmol/L BUN (9-20) mg/dL Creatinine (0.66-1.25) mg/dL POC Glucose (mg/dL) 115 H 163 H (70-110) mg/dL Iron 18 L (65-175) UG/DL % Saturation 6.52 L (15.00-50.00) Transferrin 197.0 L (204.0-354.0) mg/dL Albumin (3.5-5.0) g/dL Assessment and Plan Plan: Acute decompensated heart failure with ejection fraction of systolic heart failure 15 to 20%. The patient has systolic heart failure. Exact cause is not clear. Cardiac catheterization is not possible due to his underlying renal dysfunction Shortness of breath secondary to above, improving and the patient is currently on room air oxygen Acute kidney injury/ATN secondary to cardiorenal factors, nonoliguric and nephrology on the case, Creatinine improved compared to yesterday Diabetes mellitus type 2 Hypertension Hyperlipidemia Mild intermittent bronchial asthma Obesity with a BMI of 36.9 Volume overload and scrotal/lower extremity edema. Plan Continue Coreg Continue dobutamine Continue Lasix Monitor fluid balance Monitor urine output The patient will be further optimized and the patient will need an AICD versus LifeVest at the time of discharge.
[2023-08-18 20:15] LABS: Glucose,Whole Blood 96 mg/dL (70-110)
[2023-08-18] MEDS: ALPRAZolam 0.25 MG TAB PO PRN (21:44)
[2023-08-19 05:50] LABS: Glucose,Whole Blood 99 mg/dL (70-110)
[2023-08-19] MEDS: INSULIN ASPART (NovoLOG) 100 UNIT/ML VIAL SQ SCH ×7 (05:54→20:28)
[2023-08-19] MEDS: MIDODRINE 5 MG TAB PO SCH ×3 (06:31→17:23)
[2023-08-19] MEDS: carvediloL 3.125 MG TAB PO SCH ×2 (06:32→17:23)
[2023-08-19] MEDS: DOBUTamine DRIP 500 MG in DEXTROSE/WATER 1 250ML.BAG IV SCH ×2 (06:33→20:27)
[2023-08-19] MEDS: ALPRAZolam 0.25 MG TAB PO PRN ×2 (08:13→23:31)
[2023-08-19] MEDS: FUROSEMIDE 10 MG/ML 4 ML VIAL IV SCH ×3 (08:13→23:31)
[2023-08-19] MEDS: TAMSULOSIN 0.4 MG CAP.ER.24H PO SCH (08:13)
[2023-08-19] MEDS: ATORVASTATIN 10 MG TAB PO SCH (08:13)
[2023-08-19] MEDS: HEPARIN SODIUM,PORCINE 5,000 UNIT/ML 1 ML VIAL SQ SCH ×2 (08:13→20:27)
[2023-08-19] MEDS: NYSTATIN 100,000 UNIT/GM POWD 15 GM TOPICAL SCH ×2 (08:13→20:28)
[2023-08-19] MEDS: lamoTRIgine 100 MG TAB PO SCH (08:13)
--- NOTE | 2023-08-19 08:27 | XR ---
EXAMINATION TYPE: XR chest 1V portable DATE OF EXAM: 08/19/2023 6:57 AM CLINICAL INDICATION:Male, 57 years old with history of rt pleural effusion; [facility] COMPARISON: Chest radiographs from 08/16/2023. TECHNIQUE: XR chest 1V portable Frontal view of the chest. FINDINGS: Lungs/Pleura: small right pleural effusion. No left pleural effusion There is no evidence of focal c onsolidation, or pneumothorax. Pulmonary vascularity: Unremarkable. Heart/mediastinum: Cardiomediastinal silhouette is unremarkable. Musculoskeletal: No acute osseous pathology. Other findings: Multiple electronic devices project over the heart. IMPRESSION: No acute cardiopulmonary disease/process.
[2023-08-19 09:52] LABS: African American GFR (CKD) 39 (>60 ml/min/1.73 sqM); Anion Gap 9 mmol/L; Blood Urea Nitrogen 57 mg/dL (9-20); Calcium 8.9 mg/dL (8.4-10.2); Carbon Dioxide 24 mmol/L (22-30); Chloride 103 mmol/L (98-107); Glucose 120 mg/dL (74-99); Non-African American GFR(CKD) 34 (>60 ml/min/1.73 sqM); Potassium 3.8 mmol/L (3.5-5.1); Sodium 136 mmol/L (137-145)
[2023-08-19 09:53] LABS: Basophils % (A) 1 %; Eosinophils # (A) 0.1 k/uL (0-0.7); Eosinophils % (A) 3 %; HCT 32.6 % (39.0-53.0); HGB 10.4 gm/dL (13.0-17.5); Hypochromasia Slight; Lymphocytes # (A) 0.9 k/uL (1.0-4.8); Lymphocytes % (A) 24 %; MCH 27.1 pg (25.0-35.0); MCHC 31.9 g/dL (31.0-37.0); Mean Platelet Volume 8.4; Monocytes # (A) 0.2 k/uL (0-1.0); Monocytes % (A) 6 %; Neutrophils # (A) 2.3 k/uL (1.3-7.7); Neutrophils % (A) 63 %; Platelet Count 119 k/uL (150-450); RBC 3.83 m/uL (4.30-5.90); RDW 15.8 % (11.5-15.5); WBC 3.7 k/uL (3.8-10.6)
[2023-08-19 11:32] LABS: Glucose,Whole Blood 121 mg/dL (70-110)
[2023-08-19] MEDS ORDERED: POTASSIUM CHLORIDE ER 20 MEQ TAB.ER PO STA (11:45)
--- NOTE | 2023-08-19 11:46 | P.PN ---
Subjective Patient is seen in follow-up for acute kidney injury on chronic kidney disease. Patient's on dobutamine and IV Lasix. Nonoliguric. Denies chest pain or shortness of breath. On room air. Renal function stable. Vital signs are stable. General: No acute distress. HEENT: Head exam is unremarkable. LUNGS: Notable rhonchi or wheezes. HEART: Rate and Rhythm are regular. ABDOMEN: Nontender, obese. EXTREMITITES: 2+ edema. Objective - Vital Signs Vital signs: Vital Signs Temp 97.9 F 08/19/23 08:10 Pulse 81 08/19/23 08:10 Resp 16 08/19/23 08:10 BP 98/55 08/19/23 08:10 Pulse Ox 98 08/19/23 08:10 FiO2 21 08/13/23 12:31 Intake & Output 08/18/23 08/19/23 08/19/23 18:59 06:59 18:59 Intake Total 408.665 125.469 236 Output Total 1600 1000 Balance -1191.335 -874.531 236 Weight 115.8 kg 114.7 kg Intake: Intake, IV Titration 118.665 125.469 Amount DOBUTamine DRIP 500 mg In 118.665 125.469 Dextrose/Water 1 250ml. bag @ 5 MCG/KG/MIN 16.329 mls/hr IV .[id number] [facility] Rx#:[id number] Oral 290 236 Output: Urine 1600 1000 Other: Voiding Method Indwelling Catheter Indwelling Catheter Indwelling Catheter # Bowel Movements 1 1 - Labs CBC & Chem 7: 08/19/23 08:39 08/19/23 08:39 Labs: Abnormal Lab Results - Last 24 Hours (Table) 08/18/23 08/18/23 08/19/23 Range/Units 07:40 16:06 08:39 WBC 3.7 L (3.8-10.6) k/uL RBC 3.83 L (4.30-5.90) m/uL Hgb 10.4 L (13.0-17.5) gm/dL Hct 32.6 L (39.0-53.0) % RDW 15.8 H (11.5-15.5) % Plt Count 119 L (150-450) k/uL Lymphocytes # 0.9 L (1.0-4.8) k/uL Sodium (137-145) mmol/L BUN (9-20) mg/dL Creatinine (0.66-1.25) mg/dL Glucose (74-99) mg/dL POC Glucose (mg/dL) 163 H (70-110) mg/dL Iron 18 L (65-175) UG/DL % Saturation 6.52 L (15.00-50.00) Transferrin 197.0 L (204.0-354.0) mg/dL 08/19/23 08/19/23 Range/Units 08:39 11:30 WBC (3.8-10.6) k/uL RBC (4.30-5.90) m/uL Hgb (13.0-17.5) gm/dL Hct (39.0-53.0) % RDW (11.5-15.5) % Plt Count (150-450) k/uL Lymphocytes # (1.0-4.8) k/uL Sodium 136 L (137-145) mmol/L BUN 57 H (9-20) mg/dL Creatinine 2.14 H (0.66-1.25) mg/dL Glucose 120 H (74-99) mg/dL POC Glucose (mg/dL) 121 H (70-110) mg/dL Iron (65-175) UG/DL % Saturation (15.00-50.00) Transferrin (204.0-354.0) mg/dL Assessment and Plan Plan: Assessment: 1. Acute kidney injury secondary to ATN secondary to cardiorenal syndrome. Renal function stable. Creatinine 2.14 today. No hydronephrosis noted on CT. 2. Chronic kidney disease stage III with baseline creatinine 1.3-1.5 in March 2023. Suspect diabetic kidney disease. 3. Acute on chronic systolic CHF with ejection fraction of 15-20% with moderate mitral and tricuspid regurgitation. 4. Volume overload. 5. Anemia of chronic kidney disease. Iron deficiency noted. 6. Mild hypokalemia from diuresis. Better. Plan: Maintain IV Lasix. Ok to decrease dobutamine dose - defer to cardiology. Low-salt diet and 1500 mL fluid restriction. Continue to monitor renal function and urine output. Maintain midodrine. Add IV iron.
--- NOTE | 2023-08-19 12:25 | P.PN ---
Subjective Progress Note Date: 08/19/23 on 08/18/2023, I am seeing the patient for a follow-up regarding CHF and volume overload. The patient was hospitalized for worsening shortness of breath. He is established to have a severe cardiomyopathy of unknown cause and his ejection fraction is around 50 to 20% and the patient presented with scrotal edema and lower extremity edema and he was also experiencing shortness of breath cough chest tightness and wheezing. proBNP level was elevated. The patient also had developed an acute kidney injury secondary to acute cardiorenal factors. Unable to do cardiac catheterization because of his renal failure at this point. Does not have an AICD. The patient is currently on dobutamine running at 5 mcg/kg/min. He is also on IV Lasix. He is nonoliguric. His acute kidney injury is attributed to acute cardiorenal factors. Nephrology on the case. Cardiology on the case. The patient is currently on dobutamine running at 5 mcg/kg/min. Chest x-ray findings have remained stable and the patient is currently on room air oxygen with a pulse ox of 98%. On today's evaluation 08/19/2023, the patient is being seen for a follow-up. Patient is doing well on dobutamine and the patient is producing excellent urine output. Patient is also on Lasix 40 mg every 8 hours. No significant tachycardia. No hypotension. His fluid balance is negative and the patient is established in -2 L over the past 24 hours. He reports improvement in his lower extremity edema. Is also being monitored in terms of his blood work and electrolytes and the patient's renal function remains stable with a creatinine of 2.1 and a BUN of 57. Sodium level is at 136. The viscosity 0.7 with a hemoglobin of 10.4. The chest x-ray is still showing no acute abnormalities. Patient is currently on room air oxygen. Objective - Vital Signs Vital signs: Vital Signs Temp 97.9 F 08/19/23 08:10 Pulse 81 08/19/23 08:10 Resp 16 08/19/23 08:10 BP 98/55 08/19/23 08:10 Pulse Ox 98 08/19/23 08:10 FiO2 21 08/13/23 12:31 Intake & Output 08/18/23 08/19/23 08/19/23 18:59 06:59 18:59 Intake Total 408.665 125.469 236 Output Total 1600 1000 Balance -1191.335 -874.531 236 Weight 115.8 kg 114.7 kg Intake: Intake, IV Titration 118.665 125.469 Amount DOBUTamine DRIP 500 mg In 118.665 125.469 Dextrose/Water 1 250ml. bag @ 5 MCG/KG/MIN 16.329 mls/hr IV .[id number] [facility] Rx#:[id number] Oral 290 236 Output: Urine 1600 1000 Other: Voiding Method Indwelling Catheter Indwelling Catheter Indwelling Catheter # Bowel Movements 1 1 - Exam No acute distress, oriented 3. Currently on room air. HEENT examination is grossly unremarkable. Mucous membranes are moist. No oral lesions. Neck supple. Full range of motion. No adenopathy thyromegaly or neck vein distention. Cardiovascular examination reveals regular rhythm rate. S1-S2 normal. No S3 or S4. No discernible murmur noted. Heart sounds are distant. Lungs reveal basilar crackles. No wheezes or rhonchi. Abdomen soft bowel sounds are heard. No masses or tenderness. Scrotal edema present. Extremities are intact. No cyanosis or clubbing. 1+ pitting edema. Skin is without rash or lesion. Neurologic examination is brief but nonfocal. - Labs CBC & Chem 7: 08/19/23 08:39 08/19/23 08:39 Labs: Abnormal Lab Results - Last 24 Hours (Table) 08/18/23 08/18/23 08/18/23 Range/Units 07:40 11:18 16:06 WBC (3.8-10.6) k/uL RBC (4.30-5.90) m/uL Hgb (13.0-17.5) gm/dL Hct (39.0-53.0) % RDW (11.5-15.5) % Plt Count (150-450) k/uL Lymphocytes # (1.0-4.8) k/uL Sodium (137-145) mmol/L BUN (9-20) mg/dL Creatinine (0.66-1.25) mg/dL Glucose (74-99) mg/dL POC Glucose (mg/dL) 115 H 163 H (70-110) mg/dL Iron 18 L (65-175) UG/DL % Saturation 6.52 L (15.00-50.00) Transferrin 197.0 L (204.0-354.0) mg/dL 08/19/23 08/19/23 Range/Units 08:39 08:39 WBC 3.7 L (3.8-10.6) k/uL RBC 3.83 L (4.30-5.90) m/uL Hgb 10.4 L (13.0-17.5) gm/dL Hct 32.6 L (39.0-53.0) % RDW 15.8 H (11.5-15.5) % Plt Count 119 L (150-450) k/uL Lymphocytes # 0.9 L (1.0-4.8) k/uL Sodium 136 L (137-145) mmol/L BUN 57 H (9-20) mg/dL Creatinine 2.14 H (0.66-1.25) mg/dL Glucose 120 H (74-99) mg/dL POC Glucose (mg/dL) (70-110) mg/dL Iron (65-175) UG/DL % Saturation (15.00-50.00) Transferrin (204.0-354.0) mg/dL Assessment and Plan Plan: Acute decompensated heart failure with ejection fraction of systolic heart failure 15 to 20%. The patient has systolic heart failure. Exact cause is not clear. Cardiac catheterization is not possible due to his underlying renal dysfunction. The patient is responding to dobutamine and diuretics and the pat ient is mobilizing excess fluid and the patient is producing excellent urine output. Shortness of breath secondary to above, improving and the patient is currently on room air oxygen Acute kidney injury/ATN secondary to cardiorenal factors, nonoliguric and nephrology on the case, Creatinine improved compared to yesterday Diabetes mellitus type 2 Hypertension Hyperlipidemia Mild intermittent bronchial asthma Obesity with a BMI of 36.9 Volume overload and scrotal/lower extremity edema. Plan Continue Coreg Continue dobutamine at 5 microvascular kilogram per minute Continue Lasix at 40 mg IV every 8 hours Monitor fluid balance, produced a total of 2 L negative fluid balance over the past 24 hours Monitor urine output Chest x-ray shows no acute cardiac pulmonary abnormalities Patient is on room air oxygen The patient will be further optimized and the patient will need an AICD versus LifeVest at the time of discharge.
[2023-08-19] MEDS: SODIUM FERRIC GLUCONAT-SUCROSE 125 MG in SODIUM CHLORIDE 0.9% 100 ML IVPB SCH (12:33)
--- NOTE | 2023-08-19 15:09 | P.PN ---
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 He has a past medical history of smoking marijuana, diabetes. We have been asked to evaluate the patient for cardiomyopathy. Patient's main concern is that he states he has been vaping Reema a lot lately. He has developed shortness of breath for at least the last month. He is not sure when his breathing was normal but maybe a couple months ago. He states he has filed for disability. Regarding alcohol, he states he stopped drinking 6 months ago. Patient is not clear how much he was drinking at home other than a couple 12 cans a couple times a week. Patient was admitted to the hospital for lower extremity edema, scrotal edema, acute kidney injury and seen by pulmonary medicine and nephrology. He has been started on IV Lasix by nephrology of 40 mg every 12 hours. EKG sinus rhythm, incomplete right bundle branch block Chest x-ray: 08/12 right midlung pneumonia, small right pleural effusion. WBC 4.9, hemoglobin 10.2, platelet count 125. Sodium 135, potassium 4.7, BUN 40 creatinine 2.7. Magnesium 2.1. Hemoglobin A1c 6.8. Liver function tests are normal. ProBNP 7080. Pro-calcitonin 0.08. Home cardiac medications: Zocor 20 mg daily. Echocardiogram performed 08/12/2023 reveals severe LV systolic dysfunction with EF of 15-20%, moderate mitral regurgitation, moderate tricuspid regurgitation. 08/14 Patient had episode of chest pain this morning. He feels that it was related to a panic attack. He states that shortness of breath is improving he is able to lay flat. Lower extremity edema is improving but he states he still has scrotal edema. Blood pressure is lower today 90/60. 08/18 Patient denies having any chest pain or shortness of breath. He is not requiring oxygen. Patient remains on dobutamine drip per nephrology and also on IV Lasix 40 mg every 8 hours per nephrology. Blood pressure 98/66, heart rate in the 80s. Creatinine 2.14 and BUN 58, potassium 3.5. Hemoglobin 10.2. Patient have a LifeVest in place. 08/19 Patient denies having chest pain or shortness of breath. He has LifeVest in place and not requiring oxygen. He remains on dobutamine drip and IV Lasix per nephrology. Chest x-ray shows no acute cardiopulmonary process. Repeat blood work reveals hemoglobin 10.4, BUN 57 and creatinine 2.14. Blood pressure 105/70, heart rate in the 80s. Telemetry sinus rhythm. Case discussed with nephrology regarding weaning patient off dobutamine and preparing for discharge. Physical examination: Gen: This is a 57-year-old male in no acute distress. VS: reviewed HEENT: Head is atraumatic, normocephalic. Pupils equal, round. Sclerae is anicteric. LUNGS: Few basilar crackles. No intercostal retractions. HEART: Regular rate and rhythm. No murmur. EXTREMITIES: +2 pedal edema. No calf tenderness. NEUROLOGICAL: Patient is awake, alert and oriented x3. Assessment: Acute systolic heart failure Cardiomyopathy of unclear etiology Bicytopenia with anemia and thrombocytopenia Acute kidney injury Hyperlipidemia Hypertension Diabetes Vaping/marijuana Plan: Continue patient's home cardiac medication Continue patient on Coreg 3.125 mg twice daily Continue patient on dobutamine, IV Lasix and midodrine per nephrology Once kidney function is improved, patient will need to undergo cardiac catheterization or stress testing as an outpatient Patient may require AICD Patient has LifeVest Further recommendations to follow based upon clinical course Nurse practitioner note has been reviewed, I agree with documented findings and plan of care. Patient was seen and examined. Objective - Vital Signs Vital signs: Vital Signs Temp 97.9 F 08/19/23 08:10 Pulse 81 08/19/23 08:10 Resp 16 08/19/23 08:10 BP 98/55 08/19/23 08:10 Pulse Ox 98 08/19/23 08:10 FiO2 21 08/13/23 12:31 Intake & Output 08/18/23 08/19/23 08/19/23 18:59 06:59 18:59 Intake Total 408.665 125.469 236 Output Total 1600 1000 Balance -1191.335 -874.531 236 Weight 115.8 kg 114.7 kg Intake: Intake, IV Titration 118.665 125.469 Amount DOBUTamine DRIP 500 mg In 118.665 125.469 Dextrose/Water 1 250ml. bag @ 5 MCG/KG/MIN 16.329 mls/hr IV .[id number] [facility] Rx#:[id number] Oral 290 236 Output: Urine 1600 1000 Other: Voiding Method Indwelling Catheter Indwelling Catheter Indwelling Catheter # Bowel Movements 1 1 - Labs CBC & Chem 7: 08/19/23 08:39 08/19/23 08:39 Labs: Abnormal Lab Results - Last 24 Hours (Table) 08/18/23 08/18/23 08/18/23 Range/Units 07:40 11:18 16:06 WBC (3.8-10.6) k/uL RBC (4.30-5.90) m/uL Hgb (13.0-17.5) gm/dL Hct (39.0-53.0) % RDW (11.5-15.5) % Plt Count (150-450) k/uL Lymphocytes # (1.0-4.8) k/uL Sodium (137-145) mmol/L BUN (9-20) mg/dL Creatinine (0.66-1.25) mg/dL Glucose (74-99) mg/dL POC Glucose (mg/dL) 115 H 163 H (70-110) mg/dL Iron 18 L (65-175) UG/DL % Saturation 6.52 L (15.00-50.00) Transferrin 197.0 L (204.0-354.0) mg/dL 08/19/23 08/19/23 Range/Units 08:39 08:39 WBC 3.7 L (3.8-10.6) k/uL RBC 3.83 L (4.30-5.90) m/uL Hgb 10.4 L (13.0-17.5) gm/dL Hct 32.6 L (39.0-53.0) % RDW 15.8 H (11.5-15.5) % Plt Count 119 L (150-450) k/uL Lymphocytes # 0.9 L (1.0-4.8) k/uL Sodium 136 L (137-145) mmol/L BUN 57 H (9-20) mg/dL Creatinine 2.14 H (0.66-1.25) mg/dL Glucose 120 H (74-99) mg/dL POC Glucose (mg/dL) (70-110) mg/dL Iron (65-175) UG/DL % Saturation (15.00-50.00) Transferrin (204.0-354.0) mg/dL
[2023-08-19 16:47] LABS: Glucose,Whole Blood 107 mg/dL (70-110)
[2023-08-19 20:00] LABS: Glucose,Whole Blood 124 mg/dL (70-110)
--- NOTE | 2023-08-19 20:55 | P.PN ---
Subjective Progress Note Date: 08/19/23 This is a 57-year-old male who was recently admitted with increased shortness of breath and generalized weakness with significant swelling noted to the lower extremities as well as scrotum. Patient was admitted for CHF exacerbation with multiple medical consultations including nephrology and cardiology following. Patient is continued on IV Lasix along with IV dobutamine drip. Patient has received a LifeVest and reports will be returning home on discharge. Patient with significant weakness reports has been getting up and working with physical therapy and refusing to go to any form of rehab. Patient is currently afebrile with no reported chest pain or shortness of breath. Patient is maintained on room air and diuresing well. Kidney functions are improving and will follow-up on repeat labs. Encouraged increased activity as tolerated. Continue fluid restrictions and renal diet. Review of systems: Constitutional: No reports of fatigue, fever, or chills Cardiovascular: No reports of chest pain or palpitations Respiratory: No reports of shortness of breath or cough GI: No reports of nausea, no reports of vomiting, no diarrhea : No reports of dysuria or retention Neurovascular: reports of generalized weakness, and continued lower extremity and scrotal swelling All medications have been reviewed PHYSICAL EXAMINATION: GENERAL: The patient is alert and oriented x4, Well developed, well nourished. Obese HEENT: Pupils are round and equally reacting to light. EOMI. no scleral icterus. No conjunctival pallor. Normocephalic, atraumatic. No pharyngeal erythema. No thyromegaly. CARDIOVASCULAR: S1 and S2 muffled PULMONARY: diminished breath sounds bilaterally otherwise clear to auscultation with no wheezing or rhonchi noted. ABDOMEN: soft. Nontender on exam. obese. non-distended, normoactive bowel sounds. No palpable organomegaly. MUSCULOSKELETAL: No joint swelling or deformity. EXTREMITIES: No cyanosis, clubbing, or pedal edema. Generalized edema noted of bilateral lower extremities as well as scrotal swelling noted NEUROLOGICAL: Gross neurological examination did not reveal any focal deficits. Diffuse weakness SKIN: No rashes. Pale Assessment: Generalized edema as well as scrotal edema with ascites, pleural effusion with CHF exacerbation and volume overload Congestive heart failure acute on chronic with systolic dysfunction with cardiomyopathy of unknown etiology, EF is 15-20% status post LifeVest Mild pancytopenia of undetermined etiology Possible cirrhosis of liver with ascites Right pleural effusion acute renal failure secondary to acute tubular necrosis due to cardiorenal syndrome History of chronic kidney disease stage III likely secondary to diabetic kidney disease Anemia of chronic disease, iron deficiency anemia Diabetes mellitus, type II History of cataracts History of depression History of bicytopenia Obesity with a BMI of 38.4 GI prophylaxis DVT prophylaxis Full code Plan: Recommend to continue with current medications and management with pulmonary/cardiology/nephrology following. Patient is maintained on dobutamine drip along with IV Lasix and diuresing well. Patient continues to have lower extremity edema and scrotal swelling noted and has been encouraged to elevate lower extremity swelling rest as well as e levating scrotum Patient with significant weakness not really getting up out of the bed per nursing staff and patient has been instructed to increase activity as tolerated and sit up in the chair more often as patient reports he plans on returning home on discharge. Cardiology following and patient has received a LifeVest Repeat labs ordered and pending for a.m. Continue fluid restrictions of 1500 mL's as well as low-salt diet Will discuss further with consultations in discharge planning once patients dobutamine drip has been discontinued The impression and plan of care has been dictated by Yandy Martínez, nurse practitioner as directed. Dr. Tl MD I have performed a history and examination and MDM of this patient, discussed the same with the dictator, and agree with the dictator's assessment and plan as written ,documented as a scribe. Based on total visit time, I have performed more than 50% of the visit. Any additional findings or plans will be noted. Objective - Vital Signs Vital signs: Vital Signs Temp 98.0 F 08/19/23 19:45 Pulse 89 08/19/23 19:45 Resp 18 08/19/23 19:45 BP 105/78 08/19/23 19:45 Pulse Ox 96 08/19/23 19:45 FiO2 21 08/13/23 12:31 Intake & Output 08/19/23 08/19/23 08/20/23 06:59 18:59 06:59 Intake Total 426.152 1066 113.494 Output Total 1000 1000 Balance -874.531 20 113.494 Weight 114.7 kg Intake: Intake, IV Titration 125.469 100 113.494 Amount DOBUTamine DRIP 500 mg In 125.469 113.494 Dextrose/Water 1 250ml. bag @ 5 MCG/KG/MIN 16.329 mls/hr IV .[id number] [facility] Rx#:[id number] Sodium Ferric Gluconat- 100 Sucrose 125 mg In Sodium Chloride 0.9% 100 ml @ 100 mls/hr IVPB DAILY [facility] Rx#:[id number] Oral 920 Output: Urine 1000 1000 Other: Voiding Method Indwelling Catheter Indwelling Catheter # Bowel Movements 1 - Labs CBC & Chem 7: 08/19/23 08:39 08/19/23 08:39 Labs: Abnormal Lab Results - Last 24 Hours (Table) 08/19/23 08/19/23 08/19/23 Range/Units 08:39 08:39 11:30 WBC 3.7 L (3.8-10.6) k/uL RBC 3.83 L (4.30-5.90) m/uL Hgb 10.4 L (13.0-17.5) gm/dL Hct 32.6 L (39.0-53.0) % RDW 15.8 H (11.5-15.5) % Plt Count 119 L (150-450) k/uL Lymphocytes # 0.9 L (1.0-4.8) k/uL Sodium 136 L (137-145) mmol/L BUN 57 H (9-20) mg/dL Creatinine 2.14 H (0.66-1.25) mg/dL Glucose 120 H (74-99) mg/dL POC Glucose (mg/dL) 121 H (70-110) mg/dL 08/19/23 Range/Units 19:59 WBC (3.8-10.6) k/uL RBC (4.30-5.90) m/uL Hgb (13.0-17.5) gm/dL Hct (39.0-53.0) % RDW (11.5-15.5) % Plt Count (150-450) k/uL Lymphocytes # (1.0-4.8) k/uL Sodium (137-145) mmol/L BUN (9-20) mg/dL Creatinine (0.66-1.25) mg/dL Glucose (74-99) mg/dL POC Glucose (mg/dL) 124 H (70-110) mg/dL
[2023-08-20 05:56] LABS: Glucose,Whole Blood 89 mg/dL (70-110)
[2023-08-20] MEDS: INSULIN ASPART (NovoLOG) 100 UNIT/ML VIAL SQ SCH ×7 (05:58→21:07)
[2023-08-20] MEDS: MIDODRINE 5 MG TAB PO SCH (06:34)
[2023-08-20] MEDS: carvediloL 3.125 MG TAB PO SCH ×2 (06:34→17:11)
[2023-08-20 09:44] LABS: African American GFR (CKD) 39 (>60 ml/min/1.73 sqM); Anion Gap 10 mmol/L; Blood Urea Nitrogen 57 mg/dL (9-20); Calcium 8.8 mg/dL (8.4-10.2); Carbon Dioxide 26 mmol/L (22-30); Chloride 101 mmol/L (98-107); Glucose 127 mg/dL (74-99); Magnesium 2.1 mg/dL (1.6-2.3); Non-African American GFR(CKD) 34 (>60 ml/min/1.73 sqM); Potassium 3.4 mmol/L (3.5-5.1); Sodium 137 mmol/L (137-145)
[2023-08-20] MEDS: NYSTATIN 100,000 UNIT/GM POWD 15 GM TOPICAL SCH ×2 (10:33→21:11)
[2023-08-20] MEDS: FUROSEMIDE 10 MG/ML 4 ML VIAL IV SCH ×2 (10:33→17:11)
[2023-08-20] MEDS: lamoTRIgine 100 MG TAB PO SCH (10:33)
[2023-08-20] MEDS: TAMSULOSIN 0.4 MG CAP.ER.24H PO SCH (10:33)
[2023-08-20] MEDS: HEPARIN SODIUM,PORCINE 5,000 UNIT/ML 1 ML VIAL SQ SCH ×2 (10:33→21:11)
[2023-08-20] MEDS: ATORVASTATIN 10 MG TAB PO SCH (10:33)
[2023-08-20] MEDS ORDERED: POTASSIUM CHLORIDE ER 20 MEQ TAB.ER PO STA (11:12)
--- NOTE | 2023-08-20 11:13 | P.PN ---
Subjective Patient is seen in follow-up for acute kidney injury on chronic kidney disease. Patient's on dobutamine and IV Lasix. Nonoliguric. Denies chest pain or shortness of breath. On room air. Renal function stable. Vital signs are stable. General: No acute distress. HEENT: Head exam is unremarkable. LUNGS: Notable rhonchi or wheezes. HEART: Rate and Rhythm are regular. ABDOMEN: Nontender, obese. EXTREMITITES: 1+ edema. Objective - Vital Signs Vital signs: Vital Signs Temp 97.4 F L 08/20/23 04:22 Pulse 85 08/20/23 04:22 Resp 18 08/20/23 04:22 BP 111/70 08/20/23 04:22 Pulse Ox 97 08/20/23 08:51 FiO2 21 08/13/23 12:31 Intake & Output 08/19/23 08/20/23 08/20/23 18:59 06:59 18:59 Intake Total 1020 334.494 240 Output Total 1000 1050 Balance 20 -715.506 240 Weight 115.7 kg Intake: Intake, IV Titration 100 113.494 Amount DOBUTamine DRIP 500 mg In 113.494 Dextrose/Water 1 250ml. bag @ 5 MCG/KG/MIN 16.329 mls/hr IV .[id number] [facility] Rx#:[id number] Sodium Ferric Gluconat- 100 Sucrose 125 mg In Sodium Chloride 0.9% 100 ml @ 100 mls/hr IVPB DAILY [facility] Rx#:[id number] Oral 920 221 240 Output: Urine 1000 1050 Other: Voiding Method Indwelling Catheter Indwelling Catheter # Bowel Movements 1 - Labs CBC & Chem 7: 08/19/23 08:39 08/20/23 08:06 Labs: Abnormal Lab Results - Last 24 Hours (Table) 08/19/23 08/19/23 08/20/23 Range/Units 11:30 19:59 08:06 Potassium 3.4 L (3.5-5.1) mmol/L BUN 57 H (9-20) mg/dL Creatinine 2.11 H (0.66-1.25) mg/dL Glucose 127 H (74-99) mg/dL POC Glucose (mg/dL) 121 H 124 H (70-110) mg/dL Assessment and Plan Plan: Assessment: 1. Acute kidney injury secondary to ATN secondary to cardiorenal syndrome. Renal function stable. Creatinine 2.11 today. No hydronephrosis noted on CT. 2. Chronic kidney disease stage III with baseline creatinine 1.3-1.5 in March 2023. Suspect diabetic kidney disease. 3. Acute on chronic systolic CHF with ejection fraction of 15-20% with moderate mitral and tricuspid regurgitation. 4. Volume overload. 5. Anemia of chronic kidney disease. Iron deficiency noted. 6. Hypokalemia from diuresis. Plan: Maintain IV Lasix for now. Transition to torsemide 40 mg once today upon disch arge. Deferred dobutamine management to cardiology. Low-salt diet and 1500 mL fluid restriction. Continue to monitor renal function and urine output. Maintain midodrine. Maintain IV iron. Replace potassium.
[2023-08-20] MEDS ORDERED: MIDODRINE 5 MG TAB PO PRN ×2 (11:44→11:46)
[2023-08-20 11:53] LABS: Glucose,Whole Blood 128 mg/dL (70-110)
--- NOTE | 2023-08-20 12:08 | P.PN ---
Subjective Progress Note Date: 08/20/23 on 08/18/2023, I am seeing the patient for a follow-up regarding CHF and volume overload. The patient was hospitalized for worsening shortness of breath. He is established to have a severe cardiomyopathy of unknown cause and his ejection fraction is around 50 to 20% and the patient presented with scrotal edema and lower extremity edema and he was also experiencing shortness of breath cough chest tightness and wheezing. proBNP level was elevated. The patient also had developed an acute kidney injury secondary to acute cardiorenal factors. Unable to do cardiac catheterization because of his renal failure at this point. Does not have an AICD. The patient is currently on dobutamine running at 5 mcg/kg/min. He is also on IV Lasix. He is nonoliguric. His acute kidney injury is attributed to acute cardiorenal factors. Nephrology on the case. Cardiology on the case. The patient is currently on dobutamine running at 5 mcg/kg/min. Chest x-ray findings have remained stable and the patient is currently on room air oxygen with a pulse ox of 98%. On today's evaluation 08/19/2023, the patient is being seen for a follow-up. Patient is doing well on dobutamine and the patient is producing excellent urine output. Patient is also on Lasix 40 mg every 8 hours. No significant tachycardia. No hypotension. His fluid balance is negative and the patient is established in -2 L over the past 24 hours. He reports improvement in his lower extremity edema. Is also being monitored in terms of his blood work and electrolytes and the patient's renal function remains stable with a creatinine of 2.1 and a BUN of 57. Sodium level is at 136. The viscosity 0.7 with a hemoglobin of 10.4. The chest x-ray is still showing no acute abnormalities. Patient is currently on room air oxygen. 08/20/2023, patient is being seen for a follow-up. Patient remains on dobutamine. The patient remains on Lasix 40 mg IV every 8 hours. Fluid balance is negative. No specific complaints. Rest of the cardiac medications are essentially unchanged. Remains on Coreg 3.125 mg twice a day. The BUN is at 57 with a creatinine of 2.11 which is essentially stable compared to yesterday. Sodium levels is 137 and a potassium levels at 3.4. He is currently on room air oxygen with a pulse ox of 97%. No exertional dyspnea. No cough. No sputum production. No chest tightness. No wheezing. He does have an underlying iron deficiency anemia and the patient is receiving IV iron replacement. Objective - Vital Signs Vital signs: Vital Signs Temp 97.4 F L 08/20/23 04:22 Pulse 85 08/20/23 04:22 Resp 18 08/20/23 04:22 BP 111/70 08/20/23 04:22 Pulse Ox 97 08/20/23 08:51 FiO2 21 08/13/23 12:31 Intake & Output 08/19/23 08/20/23 08/20/23 18:59 06:59 18:59 Intake Total 1020 334.494 240 Output Total 1000 1050 Balance 20 -715.506 240 Weight 115.7 kg Intake: Intake, IV Titration 100 113.494 Amount DOBUTamine DRIP 500 mg In 113.494 Dextrose/Water 1 250ml. bag @ 5 MCG/KG/MIN 16.329 mls/hr IV .[id number] [facility] Rx#:[id number] Sodium Ferric Gluconat- 100 Sucrose 125 mg In Sodium Chloride 0.9% 100 ml @ 100 mls/hr IVPB DAILY [facility] Rx#:[id number] Oral 920 221 240 Output: Urine 1000 1050 Other: Voiding Method Indwelling Catheter Indwelling Catheter # Bowel Movements 1 - Exam No acute distress, oriented 3. Currently on room air. HEENT examination is grossly unremarkable. Mucous membranes are moist. No oral lesions. Neck supple. Full range of motion. No adenopathy thyromegaly or neck vein distention. Cardiovascular examination reveals regular rhythm rate. S1-S2 normal. No S3 or S4. No discernible murmur noted. Heart sounds are distant. Lungs reveal basilar crackles. No wheezes or rhonchi. Abdomen soft bowel sounds are heard. No masses or tenderness. Scrotal edema present. Extremities are intact. No cyanosis or clubbing. 1+ pitting edema. Skin is without rash or lesion. Neurologic examination is brief but nonfocal. - Labs CBC & Chem 7: 08/19/23 08:39 08/20/23 08:06 Labs: Abnormal Lab Results - Last 24 Hours (Table) 08/19/23 08/19/23 08/20/23 Range/Units 11:30 19:59 08:06 Potassium 3.4 L (3.5-5.1) mmol/L BUN 57 H (9-20) mg/dL Creatinine 2.11 H (0.66-1.25) mg/dL Glucose 127 H (74-99) mg/dL POC Glucose (mg/dL) 121 H 124 H (70-110) mg/dL Assessment and Plan Plan: Acute decompensated heart failure with ejection fraction of systolic heart failure 15 to 20%. The patient has systolic heart failure. Exact cause is not clear. Cardiac catheterization is not possible due to his underlying renal dysfunction. The patient is responding to dobutamine and diuretics and the patient is mobilizing excess fluid and the patient is producing excellent urine output. Shortness of breath secondary to above, improving and the patient is currently on room air oxygen Acute kidney injury/ATN secondary to cardiorenal factors, nonoliguric and nephro logy on the case, Creatinine is stable compared to yesterday Diabetes mellitus type 2 Hypertension Hyperlipidemia Mild intermittent bronchial asthma Obesity with a BMI of 36.9 Volume overload and scrotal/lower extremity edema. Plan We'll continue optimizing the patient's CHF. The patient is currently on dobutamine and diuretics with IV Lasix. Continue Coreg Continue dobutamine at 5 microvascular kilogram per minute Continue Lasix at 40 mg IV every 8 hours Monitor fluid balance, produced a total of 600 mL negative fluid balance over the past 24 hours Monitor urine output Chest x-ray shows no acute cardiac pulmonary abnormalities Patient is on room air oxygen The patient will be further optimized and the patient will need an AICD versus LifeVest at the time of discharge.
[2023-08-20] MEDS: SODIUM FERRIC GLUCONAT-SUCROSE 125 MG in SODIUM CHLORIDE 0.9% 100 ML IVPB SCH (12:16)
--- NOTE | 2023-08-20 13:49 | P.PN ---
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 He has a past medical history of smoking marijuana, diabetes. We have been asked to evaluate the patient for cardiomyopathy. Patient's main concern is that he states he has been vaping Reema a lot lately. He has developed shortness of breath for at least the last month. He is not sure when his breathing was normal but maybe a couple months ago. He states he has filed for disability. Regarding alcohol, he states he stopped drinking 6 months ago. Patient is not clear how much he was drinking at home other than a couple 12 cans a couple times a week. Patient was admitted to the hospital for lower extremity edema, scrotal edema, acute kidney injury and seen by pulmonary medicine and nephrology. He has been started on IV Lasix by nephrology of 40 mg every 12 hours. EKG sinus rhythm, incomplete right bundle branch block Chest x-ray: 08/12 right midlung pneumonia, small right pleural effusion. WBC 4.9, hemoglobin 10.2, platelet count 125. Sodium 135, potassium 4.7, BUN 40 creatinine 2.7. Magnesium 2.1. Hemoglobin A1c 6.8. Liver function tests are normal. ProBNP 7080. Pro-calcitonin 0.08. Home cardiac medications: Zocor 20 mg daily. Echocardiogram performed 08/12/2023 reveals severe LV systolic dysfunction with EF of 15-20%, moderate mitral regurgitation, moderate tricuspid regurgitation. 08/14 Patient had episode of chest pain this morning. He feels that it was related to a panic attack. He states that shortness of breath is improving he is able to lay flat. Lower extremity edema is improving but he states he still has scrotal edema. Blood pressure is lower today 90/60. 08/18 Patient denies having any chest pain or shortness of breath. He is not requiring oxygen. Patient remains on dobutamine drip per nephrology and also on IV Lasix 40 mg every 8 hours per nephrology. Blood pressure 98/66, heart rate in the 80s. Creatinine 2.14 and BUN 58, potassium 3.5. Hemoglobin 10.2. Patient have a LifeVest in place. 08/19 Patient denies having chest pain or shortness of breath. He has LifeVest in place and not requiring oxygen. He remains on dobutamine drip and IV Lasix per nephrology. Chest x-ray shows no acute cardiopulmonary process. Repeat blood work reveals hemoglobin 10.4, BUN 57 and creatinine 2.14. Blood pressure 105/70, heart rate in the 80s. Telemetry sinus rhythm. Case discussed with nephrology regarding weaning patient off dobutamine and preparing for discharge. 08/20 Patient remains on dobutamine drip, creatinine stable and slightly improved. Repeat blood work today reveals BUN 57 creatinine 2.11, potassium 3.4. Patient has had good urine output. Physical examination: Gen: This is Patient denies having any shortness of breath, no chest pain. a 57-year-old male in no acute distress. VS: reviewed HEENT: Head is atraumatic, normocephalic. Pupils equal, round. Sclerae is anicteric. LUNGS: Few basilar crackles. No intercostal retractions. HEART: Regular rate and rhythm. No murmur. EXTREMITIES: +2 pedal edema. No calf tenderness. NEUROLOGICAL: Patient is awake, alert and oriented x3. Assessment: Acute systolic heart failure Cardiomyopathy of unclear etiology Bicytopenia with anemia and thrombocytopenia Acute kidney injury Hyperlipidemia Hypertension Diabetes Vaping/marijuana Plan: Continue patient's home cardiac medication Continue patient on Coreg 3.125 mg twice daily Discontinue dobutamine drip Change midodrine to as needed for systolic blood pressure less than 90 Once kidney function is improved, patient will need to undergo cardiac catheterization or stress testing as an outpatient Patient may require AICD Patient has LifeVest Discontinue Reed catheter Nurse practitioner note has been reviewed, I agree with documented findings and plan of care. Patient was seen and examined. Objective - Vital Signs Vital signs: Vital Signs Temp 97.4 F L 08/20/23 04:22 Pulse 85 08/20/23 04:22 Resp 18 08/20/23 04:22 BP 111/70 08/20/23 04:22 Pulse Ox 97 08/20/23 08:51 FiO2 21 08/13/23 12:31 Intake & Output 08/19/23 08/20/23 08/20/23 18:59 06:59 18:59 Intake Total 1020 334.494 240 Output Total 1000 1050 Balance 20 -715.506 240 Weight 115.7 kg Intake: Intake, IV Titration 100 113.494 Amount DOBUTamine DRIP 500 mg In 113.494 Dextrose/Water 1 250ml. bag @ 5 MCG/KG/MIN 16.329 mls/hr IV .[id number] [facility] Rx#:[id number] Sodium Ferric Gluconat- 100 Sucrose 125 mg In Sodium Chloride 0.9% 100 ml @ 100 mls/hr IVPB DAILY [facility] Rx#:[id number] Oral 920 221 240 Output: Urine 1000 1050 Other: Voiding Method Indwelling Catheter Indwelling Catheter # Bowel Movements 1 - Labs CBC & Chem 7: 08/19/23 08:39 08/20/23 08:06 Labs: Abnormal Lab Results - Last 24 Hours (Table) 08/19/23 08/20/23 Range/Units 19:59 08:06 Potassium 3.4 L (3.5-5.1) mmol/L BUN 57 H (9-20) mg/dL Creatinine 2.11 H (0.66-1.25) mg/dL Glucose 127 H (74-99) mg/dL POC Glucose (mg/dL) 124 H (70-110) mg/dL
[2023-08-20 16:32] LABS: Glucose,Whole Blood 112 mg/dL (70-110)
[2023-08-20 20:09] LABS: Glucose,Whole Blood 119 mg/dL (70-110)
[2023-08-21] MEDS: FUROSEMIDE 10 MG/ML 4 ML VIAL IV SCH ×2 (00:35→09:47)
[2023-08-21] MEDS: ALPRAZolam 0.25 MG TAB PO PRN (01:48)
[2023-08-21 06:02] LABS: Glucose,Whole Blood 113 mg/dL (70-110)
[2023-08-21] MEDS: INSULIN ASPART (NovoLOG) 100 UNIT/ML VIAL SQ SCH ×4 (06:04→13:41)
[2023-08-21] MEDS: carvediloL 3.125 MG TAB PO SCH (07:01)
--- NOTE | 2023-08-21 07:10 | P.PN ---
Subjective Progress Note Date: 08/20/23 This is a 57-year-old male who was recently admitted with increased shortness of breath and generalized weakness with significant swelling noted to the lower extremities as well as scrotum. Patient was admitted for CHF exacerbation with multiple medical consultations including nephrology and cardiology following. Patient is continued on IV Lasix along with IV dobutamine drip. Patient has received a LifeVest and reports will be returning home on discharge. Patient with significant weakness reports has been getting up and working with physical therapy and refusing to go to any form of rehab. Patient is currently afebrile with no reported chest pain or shortness of breath. Patient is maintained on room air and diuresing well. Kidney functions are improving and will follow-up on repeat labs. Encouraged increased activity as tolerated. Continue fluid restrictions and renal diet. 08/20/2023 Patient is seen in follow-up this morning currently sitting up in the bed. Patient continues to report significant swelling of the scrotum and lower extremities and is attempting to elevate while at rest. Patient was on dobutamine all this is being discontinued today and continues on Lasix with nephrology and cardiology following. Patient has received a LifeVest and is currently wearing an denies any chest pain or shortness of breath. Patient with generalized weakness recommend working with physical therapy daily per strength and mobility as patient plans on returning home on discharge. Discussed with consultations and will consider discharge planning in the next 24 hours. Review of systems: Constitutional: No reports of fatigue, fever, or chills Cardiovascular: No reports of chest pain or palpitations Respiratory: No reports of shortness of breath or cough GI: No reports of nausea, no reports of vomiting, no diarrhea : No reports of dysuria or retention Neurovascular: reports of generalized weakness, and continued lower extremity and scrotal swelling All medications have been reviewed PHYSICAL EXAMINATION: GENERAL: The patient is alert and oriented x4, Well developed, well nourished. Obese HEENT: Pupils are round and equally reacting to light. EOMI. no scleral icterus. No conjunctival pallor. Normocephalic, atraumatic. No pharyngeal erythema. No thyromegaly. CARDIOVASCULAR: S1 and S2 muffled PULMONARY: diminished breath sounds bilaterally otherwise clear to auscultation with no wheezing or rhonchi noted. ABDOMEN: soft. Nontender on exam. obese. non-distended, normoactive bowel sounds. No palpable organomegaly. MUSCULOSKELETAL: No joint swelling or deformity. EXTREMITIES: No cyanosis, clubbing, or pedal edema. Generalized edema noted of bilateral lower extremities as well as scrotal swelling noted NEUROLOGICAL: Gross neurological examination did not reveal any focal deficits. Diffuse weakness SKIN: No rashes. Pale Assessment: Generalized edema as well as scrotal edema with ascites, pleural effusion with CHF exacerbation and volume overload Congestive heart failure acute on chronic with systolic dysfunction with cardiomyopathy of unknown etiology, EF is 15-20% status post LifeVest Mild pancytopenia of undetermined etiology Possible cirrhosis of liver with ascites Right pleural effusion acute renal failure secondary to acute tubular necrosis due to cardiorenal syndrome History of chronic kidney disease stage III likely secondary to diabetic kidney disease Anemia of chronic disease, iron deficiency anemia Diabetes mellitus, type II History of cataracts History of depression History of bicytopenia Obesity with a BMI of 38.4 GI prophylaxis DVT prophylaxis Full code Plan: Recommend to continue with current medications and management with pulmonary/cardiology/nephrology following. Patient is maintained on dobutamine drip along with IV Lasix and diuresing well. Dobutamine being discontinued and we'll transition to oral Lasix on discharge Patient continues to have lower extremity edema and scrotal swelling noted and has been encouraged to elevate lower extremity swelling rest as well as elevating scrotum Patient with significant weakness not really getting up out of the bed per nursing staff and patient has been instructed to increase activity as tolerated and sit up in the chair more often as patient reports he plans on returning home on discharge. Cardiology following and patient has received a LifeVest Repeat labs ordered for a.m. Replace electrolytes per protocol Continue fluid restrictions of 1500 mL's as well as low-salt diet Case management/social work following and will discuss further about arranging for discharge planning needs with possible discharge in the next 24-48 hours The impression and plan of care has been dictated by Yandy Martínez, nurse practitioner as directed. Dr. Tl MD I have performed a history and examination and MDM of this patient, discussed the same with the dictator, and agree with the dictator's assessment and plan as written ,documented as a scribe. Based on total visit time, I have performed more than 50% of the visit. Any additional findings or plans will be noted. Objective - Vital Signs Vital signs: Vital Signs Temp 97.6 F 08/20/23 20:00 Pulse 90 08/21/23 04:00 Resp 20 08/21/23 04:00 BP 109/70 08/21/23 04:00 Pulse Ox 96 08/21/23 04:00 FiO2 21 08/13/23 12:31 Intake & Output 08/20/23 08/21/23 08/21/23 18:59 06:59 18:59 Intake Total 722 540 Output Total 950 750 Balance -228 -210 Weight 111.5 kg Intake: Oral 722 540 Output: Urine 950 750 Other: Voiding Method Indwelling Catheter Urinal - Labs CBC & Chem 7: 08/19/23 08:39 08/20/23 08:06 Labs: Abnormal Lab Results - Last 24 Hours (Table) 08/20/23 08/20/23 08/20/23 Range/Units 08:06 11:49 16:30 Potassium 3.4 L (3.5-5.1) mmol/L BUN 57 H (9-20) mg/dL Creatinine 2.11 H (0.66-1.25) mg/dL Glucose 127 H (74-99) mg/dL POC Glucose (mg/dL) 128 H 112 H (70-110) mg/dL 08/20/23 08/21/23 Range/Units 20:07 06:01 Potassium (3.5-5.1) mmol/L BUN (9-20) mg/dL Creatinine (0.66-1.25) mg/dL Glucose (74-99) mg/dL POC Glucose (mg/dL) 119 H 113 H (70-110) mg/dL
[2023-08-21 08:27] LABS: African American GFR (CKD) 38 (>60 ml/min/1.73 sqM); Anion Gap 9 mmol/L; Blood Urea Nitrogen 60 mg/dL (9-20); Carbon Dioxide 23 mmol/L (22-30); Chloride 103 mmol/L (98-107); Glucose 110 mg/dL (74-99); Magnesium 2.1 mg/dL (1.6-2.3); Non-African American GFR(CKD) 33 (>60 ml/min/1.73 sqM); Potassium 4.1 mmol/L (3.5-5.1); Sodium 135 mmol/L (137-145)
[2023-08-21] MEDS: ATORVASTATIN 10 MG TAB PO SCH (09:47)
[2023-08-21] MEDS: SODIUM FERRIC GLUCONAT-SUCROSE 125 MG in SODIUM CHLORIDE 0.9% 100 ML IVPB SCH (09:47)
[2023-08-21] MEDS: HEPARIN SODIUM,PORCINE 5,000 UNIT/ML 1 ML VIAL SQ SCH (09:47)
[2023-08-21] MEDS: lamoTRIgine 100 MG TAB PO SCH (09:47)
[2023-08-21] MEDS: TAMSULOSIN 0.4 MG CAP.ER.24H PO SCH (09:47)
[2023-08-21] MEDS: NYSTATIN 100,000 UNIT/GM POWD 15 GM TOPICAL SCH (09:48)
[2023-08-21 10:58] VITALS: RESP 16; TEMP 97.9
[2023-08-21 11:36] LABS: Glucose,Whole Blood 119 mg/dL (70-110)
--- NOTE | 2023-08-21 12:29 | P.PN ---
Subjective Patient is seen in follow-up for acute kidney injury on chronic kidney disease. Patient's on IV Lasix. Off dobutamine. Nonoliguric. Denies chest pain or shortness of breath. On room air. Renal function stable. Vital signs are stable. General: No acute distress. HEENT: Head exam is unremarkable. LUNGS: Notable rhonchi or wheezes. HEART: Rate and Rhythm are regular. ABDOMEN: Nontender, obese. EXTREMITITES: 1+ edema. Objective - Vital Signs Vital signs: Vital Signs Temp 97.9 F 08/21/23 08:35 Pulse 82 08/21/23 08:35 Resp 16 08/21/23 08:35 BP 92/66 08/21/23 08:35 Pulse Ox 98 08/21/23 08:35 FiO2 21 08/13/23 12:31 Intake & Output 08/20/23 08/21/23 08/21/23 18:59 06:59 18:59 Intake Total 722 540 0 Output Total 950 750 Balance -228 -210 0 Weight 111.5 kg Intake: Oral 722 540 0 Output: Urine 950 750 Other: Voiding Method Indwelling Catheter Urinal Urinal - Labs CBC & Chem 7: 08/19/23 08:39 08/21/23 07:50 Labs: Abnormal Lab Results - Last 24 Hours (Table) 08/20/23 08/20/23 08/21/23 Range/Units 16:30 20:07 06:01 Sodium (137-145) mmol/L BUN (9-20) mg/dL Creatinine (0.66-1.25) mg/dL Glucose (74-99) mg/dL POC Glucose (mg/dL) 112 H 119 H 113 H (70-110) mg/dL 08/21/23 08/21/23 Range/Units 07:50 11:34 Sodium 135 L (137-145) mmol/L BUN 60 H (9-20) mg/dL Creatinine 2.16 H (0.66-1.25) mg/dL Glucose 110 H (74-99) mg/dL POC Glucose (mg/dL) 119 H (70-110) mg/dL Assessment and Plan Plan: Assessment: 1. Acute kidney injury secondary to ATN secondary to cardiorenal syndrome. Renal function stable. Creatinine 2.16 today. No hydronephrosis noted on CT. 2. Chronic kidney disease stage III with baseline creatinine 1.3-1.5 in March 2023. Suspect diabetic kidney disease. 3. Acute on chronic systolic CHF with ejection fraction of 15-20% with moderate mitral and tricuspid regurgitation. 4. Volume overload. Improved with diuresis. 5. Anemia of chronic kidney disease. Iron deficiency noted. 6. Hypokalemia from diuresis. Replaced. Better. Plan: Maintain IV Lasix for now. Will be transitioned to oral Bumex upon discharge. Low-salt diet and 1500 mL fluid restriction. Continue to monitor renal function and urine output. Maintain midodrine. Maintain IV iron. Add maintenance potassium supplementation. Advised patient to monitor his weight closely at home and to notify physician if develops edema or gains more than 3 pounds in 1 week duration. Repeat BMP and magnesium level to 3 days postdischarge. Follow up outpatient in 1 week.
[2023-08-21 14:39] VITALS: BP 115/63; PULSE 84
--- NOTE | 2023-08-21 14:42 | P.PN ---
Subjective Progress Note Date: 08/21/23 on 08/18/2023, I am seeing the patient for a follow-up regarding CHF and volume overload. The patient was hospitalized for worsening shortness of breath. He is established to have a severe cardiomyopathy of unknown cause and his ejection fraction is around 50 to 20% and the patient presented with scrotal edema and lower extremity edema and he was also experiencing shortness of breath cough chest tightness and wheezing. proBNP level was elevated. The patient also had developed an acute kidney injury secondary to acute cardiorenal factors. Unable to do cardiac catheterization because of his renal failure at this point. Does not have an AICD. The patient is currently on dobutamine running at 5 mcg/kg/min. He is also on IV Lasix. He is nonoliguric. His acute kidney injury is attributed to acute cardiorenal factors. Nephrology on the case. Cardiology on the case. The patient is currently on dobutamine running at 5 mcg/kg/min. Chest x-ray findings have remained stable and the patient is currently on room air oxygen with a pulse ox of 98%. On today's evaluation 08/19/2023, the patient is being seen for a follow-up. Patient is doing well on dobutamine and the patient is producing excellent urine output. Patient is also on Lasix 40 mg every 8 hours. No significant tachycardia. No hypotension. His fluid balance is negative and the patient is established in -2 L over the past 24 hours. He reports improvement in his lower extremity edema. Is also being monitored in terms of his blood work and electrolytes and the patient's renal function remains stable with a creatinine of 2.1 and a BUN of 57. Sodium level is at 136. The viscosity 0.7 with a hemoglobin of 10.4. The chest x-ray is still showing no acute abnormalities. Patient is currently on room air oxygen. 08/20/2023, patient is being seen for a follow-up. Patient remains on dobutamine. The patient remains on Lasix 40 mg IV every 8 hours. Fluid balance is negative. No specific complaints. Rest of the cardiac medications are essentially unchanged. Remains on Coreg 3.125 mg twice a day. The BUN is at 57 with a creatinine of 2.11 which is essentially stable compared to yesterday. Sodium levels is 137 and a potassium levels at 3.4. He is currently on room air oxygen with a pulse ox of 97%. No exertional dyspnea. No cough. No sputum production. No chest tightness. No wheezing. He does have an underlying iron deficiency anemia and the patient is receiving IV iron replacement. On 08/21/2023, the patient is stable. The patient is on diuretics and the patient is currently on Bumex 1 mg by mouth twice daily. IV Lasix has been discontinued. Dobutamine has also been discontinued. His blood pressure is stable and is also on midodrine. No chest pain. No significant shortness of breath. His creatinine remained stable at 2.4 with a BUN of 60 and a sodium level is at 135. The fluid balance has been persistently negative although the patient is less negative over the past 24 hours. The patient remains on room air oxygen. Is being considered to ECF discharge. Objective - Vital Signs Vital signs: Vital Signs Temp 97.9 F 08/21/23 08:35 Pulse 82 08/21/23 08:35 Resp 16 08/21/23 08:35 BP 92/66 08/21/23 08:35 Pulse Ox 98 08/21/23 08:35 FiO2 21 08/13/23 12:31 Intake & Output 08/20/23 08/21/23 08/21/23 18:59 06:59 18:59 Intake Total 722 540 0 Output Total 950 750 Balance -228 -210 0 Weight 111.5 kg Intake: Oral 722 540 0 Output: Urine 950 750 Other: Voiding Method Indwelling Catheter Urinal Urinal - Exam No acute distress, oriented 3. Currently on room air. HEENT examination is grossly unremarkable. Mucous membranes are moist. No oral lesions. Neck supple. Full range of motion. No adenopathy thyromegaly or neck vein distention. Cardiovascular examination reveals regular rhythm rate. S1-S2 normal. No S3 or S4. No discernible murmur noted. Heart sounds are distant. Lungs reveal basilar crackles. No wheezes or rhonchi. Abdomen soft bowel sounds are heard. No masses or tenderness. Scrotal edema present. Extremities are intact. No cyanosis or clubbing. 1+ pitting edema. Skin is without rash or lesion. Neurologic examination is brief but nonfocal. - Labs CBC & Chem 7: 08/19/23 08:39 08/21/23 07:50 Labs: Abnormal Lab Results - Last 24 Hours (Table) 08/20/23 08/20/23 08/20/23 Range/Units 11:49 16:30 20:07 Sodium (137-145) mmol/L BUN (9-20) mg/dL Creatinine (0.66-1.25) mg/dL Glucose (74-99) mg/dL POC Glucose (mg/dL) 128 H 112 H 119 H (70-110) mg/dL 08/21/23 08/21/23 Range/Units 06:01 07:50 Sodium 135 L (137-145) mmol/L BUN 60 H (9-20) mg/dL Creatinine 2.16 H (0.66-1.25) mg/dL Glucose 110 H (74-99) mg/dL POC Glucose (mg/dL) 113 H (70-110) mg/dL Assessment and Plan Plan: Acute decompensated heart failure with ejection fraction of systolic heart failure 15 to 20%. The patient has systolic heart failure. Exact cause is not clear. Cardiac catheterization is not possible due to his underlying renal dysfunction. The patient is responded to dobutamine and diuretics and the patient is currently on oral Bumex 1 mg twice a day. Negative fluid balance. Shortness of breath secondary to above, improving and the patient is currently on room air oxygen Acute kidney injury/ATN secondary to cardiorenal factors, nonoliguric and nephrology on the case, Creatinine is stable compared to yesterday Diabetes mellitus type 2 Hypertension Hyperlipidemia Mild intermittent bronchial asthma Obesity with a BMI of 36.9 Volume overload and scrotal/lower extremity edema. Plan We'll continue optimizing the patient's CHF. The patient is on Bumex 4 mg twice a day Continue Coreg Dobutamine has been discontinued Continue rest or status is stable and the patient is currently on room air oxygen Monitor fluid balance, produced a total of 600 mL negative fluid balance over the past 24 hours Monitor urine output Chest x-ray shows no acute cardiac pulmonary abnormalities Patient is on room air oxygen The patient will be further optimized and the patient will need an AICD versus LifeVest at the time of discharge. Considering ECF discharge
--- NOTE | 2023-08-21 15:24 | P.PN ---
Subjective Progress Note Date: 08/21/23 Cardiomyopathy History of present illness: History of present illness: This is a 57 year old man does not follow with a performance improvement director and has not had any previous cardiac workup. He has a past medical history of smoking marijuana, diabetes. We have been asked to evaluate the patient for cardiomyopathy. Patient's main concern is that he states he has been vaping Reema a lot lately. He has developed shortness of breath for at least the last month. He is not sure when his breathing was normal but maybe a couple months ago. He states he has filed for disability. Regarding alcohol, he states he stopped drinking 6 months ago. Patient is not clear how much he was drinking at home other than a couple 12 cans a couple times a week. Patient was admitted to the hospital for lower extremity edema, scrotal edema, acute kidney injury and seen by pulmonary medicine and nephrology. He has been started on IV Lasix by nephrology of 40 mg every 12 hours. EKG sinus rhythm, incomplete right bundle branch block Chest x-ray: 08/12 right midlung pneumonia, small right pleural effusion. WBC 4.9, hemoglobin 10.2, platelet count 125. Sodium 135, potassium 4.7, BUN 40 creatinine 2.7. Magnesium 2.1. Hemoglobin A1c 6.8. Liver function tests are normal. ProBNP 7080. Pro-calcitonin 0.08. Home cardiac medications: Zocor 20 mg daily. Echocardiogram performed 08/12/2023 reveals severe LV systolic dysfunction with EF of 15-20%, moderate mitral regurgitation, moderate tricuspid regurgitation. 08/14 Patient had episode of chest pain this morning. He feels that it was related to a panic attack. He states that shortness of breath is improving he is able to lay flat. Lower extremity edema is improving but he states he still has scrotal edema. Blood pressure is lower today 90/60. 08/18 Patient denies having any chest pain or shortness of breath. He is not requiring oxygen. Patient remains on dobutamine drip per nephrology and also on IV Lasix 40 mg every 8 hours per nephrology. Blood pressure 98/66, heart rate in the 80s. Creatinine 2.14 and BUN 58, potassium 3.5. Hemoglobin 10.2. Patient have a LifeVest in place. 08/19 Patient denies having chest pain or shortness of breath. He has LifeVest in place and not requiring oxygen. He remains on dobutamine drip and IV Lasix per nephrology. Chest x-ray shows no acute cardiopulmonary process. Repeat blood work reveals hemoglobin 10.4, BUN 57 and creatinine 2.14. Blood pressure 105/70, heart rate in the 80s. Telemetry sinus rhythm. Case discussed with nephrology regarding weaning patient off dobutamine and preparing for discharge. 08/20 Patient remains on dobutamine drip, creatinine stable and slightly improved. Repeat blood work today reveals BUN 57 creatinine 2.11, potassium 3.4. Patient has had good urine output. 08/21 Patient denies any chest pain, no shortness of breath. He has LifeVest in p lace. He has been continued on IV Lasix 40 mg twice daily. Dobutamine drip was discontinued yesterday. Blood pressure 115/63, heart rate is in the 80s. Repeat blood work reveals sodium 135, potassium 4.1, BUN 60 creatinine 2.16. Physical examination: Gen: This is Patient denies having any shortness of breath, no chest pain. a 57-year-old male in no acute distress. VS: reviewed HEENT: Head is atraumatic, normocephalic. Pupils equal, round. Sclerae is anicteric. LUNGS: Few basilar crackles. No intercostal retractions. HEART: Regular rate and rhythm. No murmur. EXTREMITIES: +2 pedal edema. No calf tenderness. NEUROLOGICAL: Patient is awake, alert and oriented x3. Assessment: Acute systolic heart failure Cardiomyopathy of unclear etiology Bicytopenia with anemia and thrombocytopenia Acute kidney injury Hyperlipidemia Hypertension Diabetes Vaping/marijuana Plan: Transition IV Lasix to Bumex 1 mg oral daily Continue patient on current cardiac medications Patient may require AICD Patient has LifeVest Patient is cleared from cardiology for discharge and may follow-up in the office with Dr. Pardeep Cheung in 1 to 2 weeks. Nurse practitioner note has been reviewed, I agree with documented findings and plan of care. Patient was seen and examined. Objective - Vital Signs Vital signs: Vital Signs Temp 97.9 F 08/21/23 08:35 Pulse 84 08/21/23 11:30 Resp 16 08/21/23 11:30 BP 115/63 08/21/23 11:30 Pulse Ox 98 08/21/23 11:30 FiO2 21 08/13/23 12:31 Intake & Output 08/20/23 08/21/23 08/21/23 18:59 06:59 18:59 Intake Total 722 540 0 Output Total 950 750 Balance -228 -210 0 Weight 111.5 kg Intake: Oral 722 540 0 Output: Urine 950 750 Other: Voiding Method Indwelling Catheter Urinal Urinal # Voids 1 # Bowel Movements 1 - Labs CBC & Chem 7: 08/19/23 08:39 08/21/23 07:50 Labs: Abnormal Lab Results - Last 24 Hours (Table) 08/20/23 08/20/23 08/21/23 Range/Units 16:30 20:07 06:01 Sodium (137-145) mmol/L BUN (9-20) mg/dL Creatinine (0.66-1.25) mg/dL Glucose (74-99) mg/dL POC Glucose (mg/dL) 112 H 119 H 113 H (70-110) mg/dL 08/21/23 08/21/23 Range/Units 07:50 11:34 Sodium 135 L (137-145) mmol/L BUN 60 H (9-20) mg/dL Creatinine 2.16 H (0.66-1.25) mg/dL Glucose 110 H (74-99) mg/dL POC Glucose (mg/dL) 119 H (70-110) mg/dL
[2023-08-21] MEDS ORDERED: BUMETANIDE 1 MG TAB PO SCH (16:00)
[2023-08-22] MEDS ORDERED: POTASSIUM CHLORIDE ER 20 MEQ TAB.ER PO SCH (09:00)
--- NOTE | 2023-08-24 14:30 | P.DS ---
Providers Date of admission: 08/11/23 21:36 Expected date of discharge: 08/21/23 Attending physician: Zay Pal Consults: 08/11/23 21:33 Consult Physician Routine Consulting Provider: Adrianna Mera Consult Reason/Comments: pneumonia, review cxr Do you want consulting provider notified?: Yes 08/12/23 10:21 Consult Physician Routine Consulting Provider: Victoria Booth Consult Reason/Comments: pna Do you want consulting provider notified?: Yes Consult Physician Urgent Consulting Provider: María Gomez Consult Reason/Comments: john Do you want consulting provider notified?: Yes 08/13/23 08:09 Consult Physician Routine Consulting Provider: Suresh Warren Consult Reason/Comments: Cardiomyopathy Do you want consulting provider notified?: Yes Primary care physician: Patricio Banuelos Hospital Course: Final diagnosis Generalized edema as well as scrotal edema with ascites, pleural effusion with CHF exacerbation and volume overload Congestive heart failure acute on chronic with systolic dysfunction with cardiomyopathy of unknown etiology, EF is 15-20% status post LifeVest Mild pancytopenia of undetermined etiology Possible cirrhosis of liver with ascites Right pleural effusion acute renal failure secondary to acute tubular necrosis due to cardiorenal syndrome History of chronic kidney disease stage III likely secondary to diabetic kidney disease Anemia of chronic disease, iron deficiency anemia Diabetes mellitus, type II uncontrolled with hyperglycemia History of cataracts History of depression History of bicytopenia Obesity with a BMI of 38.4 GI prophylaxis DVT prophylaxis Full code Discharge disposition Patient is being discharged in a stable condition with guarded prognosis to home . Patient will follow-up with Dr. Banuelos in the outpatient setting upon discharge. Patient is to continue with current medications and outpatient follow-up with nephrology and cardiology as scheduled. Repeat labs ordered and patient also to follow-up with primary care provider on discharge. Total time taken is greater than 35 minutes. Hospital course This is a 58-year-old male who was recently admitted with significant volume overload with significant scrotal edema concerns of CHF exacerbation. Multiple medical consultations following and patient was maintained on dobutamine drip along Lasix. Nephrology following along with cardiology for continued acute renal failure most likely secondary to cardiorenal syndrome. EF was found to be 15-20% and is status post LifeVest. Patient having continued scrotal swelling have instructed to elevate and continue diuretics and increased activity as tolerated. Patient with weakness although refusing to go to rehab. Please refer to consultation notes for further HPI. Patient has been cleared by cons ultations for discharge home today. Currently no reports of chest pain, shortness of breath, or palpitations. Patient is afebrile. No reports of nausea or vomiting and patient is tolerating diet. Patient will be discharged home today. High risk for readmissions given patient's significant noncompliance as well as significant comorbidities. Physical exam: Gen: This is a 58-year-old male who is awake, alert and oriented 3, well- developed, well-nourished obese HEENT: Head is atraumatic, normocephalic. Pupils equal, round. Sclerae is anicteric. NECK: Supple. No JVD. No lymphadenopathy. No thyromegaly. LUNGS: Clear to auscultation. No wheezes or rhonchi. No intercostal retractions. HEART: Regular rate and rhythm. No murmur. ABDOMEN: Soft. Obese. Bowel sounds are present. No masses. No tenderness. Continued scrotal swelling but no redness noted EXTREMITIES: No pedal edema. No calf tenderness. Mild lower extremity edema, nonpitting NEUROLOGICAL: Patient is awake, alert and oriented x3. Cranial nerves 2 through 12 are grossly intact. diffusely weak Please refer to medication reconciliation sheet for a list of medications. The impression and plan of care has been dictated by Yandy Martínez, Nurse Practitioner as directed. Dr. Tl MD I have performed a history and examination and MDM of this patient, discussed the same with the dictator, and agree with the dictator's assessment and plan as written ,documented as a scribe. Based on total visit time, I have performed more than 50% of the visit. Patient Condition at Discharge: Fair Plan - Discharge Summary New Discharge Prescriptions: New Bumetanide [BUMEX] 1 mg PO BID@0900,1600 #60 tab Potassium Chloride [K-Tab ER] 20 meq PO DAILY 30 Days #30 tab Midodrine [ProAmatine] 5 mg PO AC-TID PRN #60 tab PRN Reason: SBP < 90 Acetaminophen Tab [Tylenol] 650 mg PO Q6HR PRN tab PRN Reason: Fever And/ Or Pain carvediloL [Coreg] 3.125 mg PO BID-W/MEALS 30 Days #60 tab polyethylene glycoL 3350 [Miralax] 17 gm PO DAILY PRN packet PRN Reason: Constipation Nystatin 100,000 Unit/gm Powd [Mycostatin Powder] 1 applic TOPICAL BID #1 each ALPRAZolam [Xanax] 0.25 mg PO TID PRN #6 tab PRN Reason: Anxiety Continue Simvastatin [Zocor] 20 mg PO DAILY Dulaglutide [Trulicity] 1.5 mg SQ FR Tamsulosin HCl [Flomax] 0.4 mg PO DAILY Lamictal Starter Pack 1 dose PO DIRECTED Albuterol Sulfate [Albuterol Sulfate Hfa] 2 puff PO RT-Q6H PRN PRN Reason: Shortness Of Breath Insulin Lispro [Admelog Solostar] 5 units SQ TID-W/MEALS Changed lamoTRIgine [LaMICtal] 100 mg PO DAILY 30 Days #30 each Discharge Medication List Dulaglutide [Trulicity] 1.5 mg SQ FR 02/19/23 [History] Simvastatin [Zocor] 20 mg PO DAILY 02/19/23 [History] Albuterol Sulfate [Albuterol Sulfate Hfa] 2 puff PO RT-Q6H PRN 08/11/23 [History] Insulin Lispro [Admelog Solostar] 5 units SQ TID-W/MEALS 08/11/23 [History] Lamictal Starter Pack 1 dose PO DIRECTED 08/11/23 [History] Tamsulosin HCl [Flomax] 0.4 mg PO DAILY 08/11/23 [History] ALPRAZolam [Xanax] 0.25 mg PO TID PRN #6 tab 08/21/23 [Rx] Acetaminophen Tab [Tylenol] 650 mg PO Q6HR PRN tab 08/21/23 [Rx] Bumetanide [BUMEX] 1 mg PO BID@0900,1600 #60 tab 08/21/23 [Rx] Midodrine [ProAmatine] 5 mg PO AC-TID PRN #60 tab 08/21/23 [Rx] Nystatin 100,000 Unit/gm Powd [Mycostatin Powder] 1 applic TOPICAL BID #1 each 08/21/23 [Rx] Potassium Chloride [K-Tab ER] 20 meq PO DAILY 30 Days #30 tab 08/21/23 [Rx] carvediloL [Coreg] 3.125 mg PO BID-W/MEALS 30 Days #60 tab 08/21/23 [Rx] lamoTRIgine [LaMICtal] 100 mg PO DAILY 30 Days #30 each 08/21/23 [Rx] polyethylene glycoL 3350 [Miralax] 17 gm PO DAILY PRN packet 08/21/23 [Rx] Follow up Appointment(s)/Referral(s): [facility], [NON-STAFF] - 1 Week (Home care will call you to schedule visit. ) Patricio Banuelos DO [Primary Care Provider] - 1-2 days (Please call to schedule follow up. ) Sami Coleman DO [STAFF PHYSICIAN] - 1 Week (Please call to schedule follow up. ) Darinel Cheung MD [STAFF PHYSICIAN] - 1 Week (Please call to schedule follow up. ) Ambulatory/Diagnostic Orders: Basic Metabolic Panel [LAB.AMB] Time Frame: 3 Days, Location: None Selected Activity/Diet/Wound Care/Special Instructions: [facility] Cleaning your home can be quite the task, especially if you have a large family or many social and work obligations youre trying to juggle to fit your hectic schedule. [employer] can help ease your stress by providing dependable residential cleaning services in [facility]. From rug and carpet cleaning to leather upholstery cleaning, exterior pressure washing, window washing and tile and grout cleaning and resealing, we can clean your home inside and out, so you can focus your time and attention on what really matters. Address [address] [place] [address] Hours of Operation Friday: 8:00 AM 4:00 PM Friday: 8:00 AM 4:00 PM Friday: 8:00 AM 4:00 PM : 8:00 AM 4:00 PM Friday: 8:00 AM 4:00 PM [employer] Standard residential cleaning services offered for all rooms! We do not expect you to clean your home, thats what we do. All we ask is that you please remove clutter so we can clean all surfaces. If you have animals please find a good spot to keep them comfortable while we are cleaning. [employer] give us a call at [phone] [facility] Open ? Closes 5?PM [email or web address] Services: Cleaning Experience, Cleaning Request, Commercial Event Lighting Specialist, Commercial Office Cleaning, Commercial Window Cleaning, Disinfection Services, Floor Scrubbing, Hard Floor Care, Office Cleaning, Post Construction Cleaning, Residential Window Cleaning Services, Stripping And Waxing, Tile And Grout Cleaning, Window Event Lighting Specialist, Window Cleaning, [employer] Cleaning Company, Window Washing Serves [facility] and nearby areas Activity Limited until follow-up follow-up with primary care provider on discharge follow-up with nephrology outpatient in 1-2 weeks follow-up with cardiology in one week Continue with LifeVest and contact [facility] with any questions or concerns Continue monitoring blood sugars Continue with consistent carb heart healthy diet and fluid restrictions of 40 ounces throughout the whole day including all fluid intake Elevate lower extremities and scrotum while at rest labs in 2-3 days Discharge/Stand Alone Forms: Who Do I Call?, Community Resources, Help In The Home Discharge Disposition: HOME SELF-CARE
== END 2023-08-21 16:18 | disposition home or self-care (01) | DRG 194 ==
LOC: EC 19:27 → 6NMEDSUR 21:35 → OBSVTOIN 21:36 → 6NMEDSUR 08-12 06:34 → 3SCARD 08-14 15:06
PROVIDERS: ADMIT Hospitalist; ATTEND Hospitalist
PROC: 05HF33Z Insertion of Infusion Device into Left Cephalic Vein, Percutaneous Approach (ICD-10-PCS; principal; 2023-08-15 11:15)
DX: I13.0 Hypertensive heart and chronic kidney disease with heart failure and stage 1 through stage 4 chronic kidney disease, or unspecified chronic kidney disease (principal); I42.9 Cardiomyopathy, unspecified; I45.10 Unspecified right bundle-branch block; I50.23 Acute on chronic systolic (congestive) heart failure; J44.0 Chronic obstructive pulmonary disease with (acute) lower respiratory infection; J18.9 Pneumonia, unspecified organism; N17.0 Acute kidney failure with tubular necrosis; N18.30 Chronic kidney disease, stage 3 unspecified; N40.1 Benign prostatic hyperplasia with lower urinary tract symptoms; E11.22 Type 2 diabetes mellitus with diabetic chronic kidney disease; D61.818 Other pancytopenia; N50.89 Other specified disorders of the male genital organs; K74.69 Other cirrhosis of liver; R33.8 Other retention of urine; D50.9 Iron deficiency anemia, unspecified; D63.1 Anemia in chronic kidney disease; E11.65 Type 2 diabetes mellitus with hyperglycemia; F32.A Depression, unspecified; E66.9 Obesity, unspecified; R18.8 Other ascites; I08.1 Rheumatic disorders of both mitral and tricuspid valves; Z79.4 Long term (current) use of insulin; Z91.199 Patient's noncompliance with other medical treatment and regimen due to unspecified reason; Z68.38 Body mass index [BMI] 38.0-38.9, adult; Z79.899 Other long term (current) drug therapy; Z28.21 Immunization not carried out because of patient refusal; Z89.411 Acquired absence of right great toe; Z89.421 Acquired absence of other right toe(s); E87.6 Hypokalemia; T50.2X5A Adverse effect of carbonic-anhydrase inhibitors, benzothiadiazides and other diuretics, initial encounter; E78.5 Hyperlipidemia, unspecified; F41.0 Panic disorder [episodic paroxysmal anxiety]; Z88.0 Allergy status to penicillin; Z88.2 Allergy status to sulfonamides
CPT/HCPCS: 36410; 36415; 71045; 71046; 74018; 74176; 76604; 76705; 76770; 76870; 76937; 80048; 80053; 81001; 82009; 82550; 82728; 83036; 83540; 83550; 83605; 83735; 83880; 84145; 85025; 85610; 85730; 87040; 87449; 93005; 93306; 93975; 94760; 96361; 96365; 96366; 96367; 96372; 96375; 99285

== ENCOUNTER 2023-09-05 16:33 | Inpatient (IN) | payer OTHER ==
--- NOTE | 2023-09-05 17:57 | ED ---
Recheck HPI - General Chief Complaint: Recheck/Abnormal Lab/Rx Stated Complaint: infection Time Seen by Provider: 09/05/23 17:56 Source: patient, EMS, RN notes reviewed Mode of arrival: EMS Limitations: no limitations - History of Present Illness Initial Comments: This is a 58-year-old male who presents to the emergency department for scrotal swelling. Patient was discharged from this facility on 08/21 for scrotal edema secondary to CHF. He is on Bumex for management of this. He has minor discomfort to this area. - Related Data Home Medications Medication Instructions Recorded Confirmed Dulaglutide [Trulicity] 1.5 mg SQ FR 02/19/23 09/06/23 Simvastatin [Zocor] 20 mg PO DAILY 02/19/23 09/06/23 Albuterol Sulfate [Albuterol 2 puff PO RT-Q6H PRN 08/11/23 09/06/23 Sulfate Hfa] Tamsulosin HCl [Flomax] 0.4 mg PO DAILY 08/11/23 09/06/23 Previous Rx's Medication Instructions Recorded ALPRAZolam [Xanax] 0.25 mg PO TID PRN #6 tab 08/21/23 Midodrine [ProAmatine] 5 mg PO AC-TID PRN #60 tab 08/21/23 Nystatin 100,000 Unit/gm Powd 1 applic TOPICAL BID #1 each 08/21/23 [Mycostatin Powder] carvediloL [Coreg] 3.125 mg PO BID-W/MEALS 30 Days 08/21/23 #60 tab polyethylene glycoL 3350 [Miralax] 17 gm PO DAILY PRN packet 08/21/23 Aspirin 81 mg PO DAILY 30 Days #30 tab 09/18/23 DULoxetine HCL [Cymbalta] 60 mg PO DAILY 30 Days #30 cap 09/18/23 Dapagliflozin Propanediol [Farxiga] 5 mg PO DAILY 30 Days #30 tab 09/18/23 Potassium Chloride ER [K-Dur 20] 20 meq PO DAILY 30 Days #30 tab 09/18/23 Furosemide [Lasix] 40 mg PO BID #60 tablet 09/19/23 Allergies Allergy/AdvReac Type Severity Reaction Status Date / Time Penicillins Allergy Rash/Hives Verified 09/06/23 12:51 Sulfa (Sulfonamide Allergy Rash/Hives Verified 09/06/23 12:51 Antibiotics) indomethacin AdvReac Unknown Verified 09/06/23 12:51 potassium chloride AdvReac Unknown Verified 09/06/23 12:51 Review of Systems ROS Statement: Those systems with pertinent positive or pertinent negative responses have been documented in the HPI. ROS Other: All systems not noted in ROS Statement are negative. 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 Head: Normocephalic, atraumatic Eyes: PERRLA, EOMI ENT: Airway patent Chest: Nonlabored breathing Skin: No visual rash, normal skin tone Neuro: Alert and oriented 3 Musculoskeletal: No gross abnormalities Limitations: no limitations Course Vital Signs 09/05/23 09/06/23 09/06/23 17:07 01:47 03:35 Temperature 98.7 F Pulse Rate 100 90 88 Pulse Rate [ Bilateral] Respiratory 18 18 16 Rate Blood Pressure 110/76 148/59 109/87 Blood Pressure [Left Arm] O2 Sat by Pulse 99 95 99 Oximetry 09/06/23 09/06/23 09/06/23 05:09 06:32 07:00 Temperature 96.6 F L Pulse Rate 87 90 Pulse Rate [ 83 Bilateral] Respiratory 16 16 16 Rate Blood Pressure 112/75 117/79 Blood Pressure 116/75 [Left Arm] O2 Sat by Pulse 96 98 98 Oximetry 09/06/23 09/06/23 14:00 17:25 Temperature 98.2 F Pulse Rate Pulse Rate [ 83 95 Bilateral] Respiratory 16 18 Rate Blood Pressure Blood Pressure 107/51 [Left Arm] O2 Sat by Pulse 99 Oximetry Medical Decision Making - Medical Decision Making I performed the QuickNote portion of this chart. Signed Li Lindsey PA-C. - Lab Data Result diagrams: 09/16/23 08:31 09/18/23 09:14 Lab Results 09/05/23 09/05/23 09/05/23 Range/Units 18:19 18:19 18:19 WBC 3.3 L (3.8-10.6) k/uL RBC 4.15 L (4.30-5.90) m/uL Hgb 11.3 L (13.0-17.5) gm/dL Hct 35.4 L (39.0-53.0) % MCV 85.3 (80.0-100.0) fL MCH 27.2 (25.0-35.0) pg MCHC 31.9 (31.0-37.0) g/dL RDW 16.7 H (11.5-15.5) % Plt Count 145 L (150-450) k/uL MPV 8.0 Neutrophils % (Manual) 61 % Band Neuts % (Manual) 12 % Lymphocytes % (Manual) 17 % Monocytes % (Manual) 9 % Eosinophils % (Manual) 1 % Neutrophils # (Manual) 2.40 (1.3-7.7) k/uL Lymphocytes # (Manual) 0.56 L (1.0-4.8) k/uL Monocytes # (Manual) 0.30 (0-1.0) k/uL Eosinophils # (Manual) 0.03 (0-0.7) k/uL Nucleated RBCs 0 (0-0) /100 WBC Manual Slide Review Performed Hypochromasia Moderate Poikilocytosis (manual Present Anisocytosis Slight Anisocytosis (manual) Present Ovalocytes Present Sodium 138 (137-145) mmol/L Potassium 4.4 (3.5-5.1) mmol/L Chloride 107 (98-107) mmol/L Carbon Dioxide 24 (22-30) mmol/L Anion Gap 7 mmol/L BUN 34 H (9-20) mg/dL Creatinine 2.26 H (0.66-1.25) mg/dL Est GFR (CKD-EPI)AfAm 36 (>60 ml/min/1.73 sqM) Est GFR (CKD-EPI)NonAf 31 (>60 ml/min/1.73 sqM) Glucose 85 (74-99) mg/dL Calcium 9.0 (8.4-10.2) mg/dL Phosphorus 4.0 (2.5-4.5) mg/dL Magnesium 2.0 (1.6-2.3) mg/dL Total Bilirubin 1.1 (0.2-1.3) mg/dL AST 30 (17-59) U/L ALT 16 (4-49) U/L Alkaline Phosphatase 101 (38-126) U/L NT-Pro-B Natriuret Pep 93597 pg/mL Total Protein 6.9 (6.3-8.2) g/dL Albumin 3.7 (3.5-5.0) g/dL Urine Color Yellow Urine Appearance Clear (Clear) Urine pH 5.0 (5.0-8.0) Ur Specific [place] 1.021 (1.001-1.035) Urine Protein 1+ H (Negative) Urine Glucose (UA) Negative (Negative) Urine Ketones Negative (Negative) Urine Blood Negative (Negative) Urine Nitrite Negative (Negative) Urine Bilirubin Negative (Negative) Urine Urobilinogen <2.0 (<2.0) mg/dL Ur Leukocyte Esterase Negative (Negative) Urine RBC 1 (0-5) /hpf Urine WBC 3 (0-5) /hpf Urine Mucus Rare H (None) /hpf Disposition Clinical Impression: CHF exacerbation Disposition: ADMITTED IP TO THIS HOSP Condition: Fair
[2023-09-05 18:36] LABS: Appearance,Urine Clear (Clear); Bilirubin,Urine Negative (Negative); Blood,Urine Negative (Negative); Color,Urine Yellow; Glucose,Urine (UA) Negative (Negative); Ketones,Urine Negative (Negative); Leukocyte Esterase,Urine Negative (Negative); Mucus,Urine Rare /hpf; Nitrite,Urine Negative (Negative); Protein,Urine 1+ (Negative); RBC,Urine 1 /hpf (0-5); Specific Gravity,Urine 1.021 (1.001-1.035); Urobilinogen,Urine <2.0 mg/dL (<2.0); WBC,Urine 3 /hpf (0-5)
[2023-09-05] MEDS: FUROSEMIDE 10 MG/ML 10 ML VIAL IV STA (19:48)
[2023-09-05 20:05] LABS: Anisocytosis Slight; HCT 35.4 % (39.0-53.0); HGB 11.3 gm/dL (13.0-17.5); Hypochromasia Moderate; MCH 27.2 pg (25.0-35.0); MCHC 31.9 g/dL (31.0-37.0); MCV 85.3 fL (80.0-100.0); Platelet Count 145 k/uL (150-450); RBC 4.15 m/uL (4.30-5.90); RDW 16.7 % (11.5-15.5); WBC 3.3 k/uL (3.8-10.6)
[2023-09-05 20:20] LABS: ALT 16 U/L (4-49); AST 30 U/L (17-59); African American GFR (CKD) 36 (>60 ml/min/1.73 sqM); Albumin 3.7 g/dL (3.5-5.0); Alkaline Phosphatase 101 U/L (38-126); Anion Gap 7 mmol/L; Blood Urea Nitrogen 34 mg/dL (9-20); Carbon Dioxide 24 mmol/L (22-30); Chloride 107 mmol/L (98-107); Glucose 85 mg/dL (74-99); Non-African American GFR(CKD) 31 (>60 ml/min/1.73 sqM); Potassium 4.4 mmol/L (3.5-5.1); Sodium 138 mmol/L (137-145); Total Bilirubin 1.1 mg/dL (0.2-1.3); Total Protein 6.9 g/dL (6.3-8.2)
[2023-09-05 20:28] LABS: NT-Pro-B-Type Natriuretic Pept 12700 pg/mL
--- NOTE | 2023-09-05 21:05 | XR ---
EXAM: XR chest 1V portable CLINICAL INDICATION:Male, 58 years old with history of sob; [facility] COMPARISON: 08/19/2023 TECHNIQUE: Chest single view. FINDINGS: EKG leads and other extrinsic structures overlie the chest. No indwelling lines are seen. Cardiomediastinal silhouette appears grossly unchanged but partially obscured. At least mild cardiome stanislav is suggested. Mild pulmonary vascular congestion. Mildly increased interstitial markings bilater ally could reflect edema and/or chronic changes. Mild left basilar opacity likely atelectasis or infiltrate with possible trace pleural effusion. Righ t basilar opacity likely moderate right pleural effusion with associated infiltrate or atelectasis; t his appears increased from prior. No visualized pneumothorax. Osseous structures appear grossly unchanged. IMPRESSION: Overall findings suggest most likely mild/moderate CHF, with enlarging moderate-sized right pleural e ffusion relative to the prior study.
[2023-09-05 21:51] LABS: Band Neutrophils % 12 %; Eosinophils # (M) 0.03 k/uL (0-0.7); Lymphocytes # (M) 0.56 k/uL (1.0-4.8); Neutrophils % (M) 61 %; Nucleated Red Blood Cells 0 /100 WBC (0-0); Total Cells Counted 100
[2023-09-05 21:52] LABS: Anisocytosis (M) Present; Ovalocytes Present; Poikilocytosis (M) Present
[2023-09-06] MEDS: FUROSEMIDE 10 MG/ML 4 ML VIAL IV SCH (03:59)
--- NOTE | 2023-09-06 14:23 | P.CRDCN ---
History of Present Illness Consult date: 09/06/23 Consult reason: congestive heart failure, shortness of breath Chief complaint: swelling in scrotum History of present illness: History of present illness: Patient is a pleasant 58-year-old male with significant past medical history diabetes type 2 since age 45, asthma, hypertension, hyperlipidemia and more recently acute systolic heart failure who presents for worsening edema and shortness of breath. He has previously seen Dr. Mccartney. He was recently admitted a few weeks ago and found to have severe LV systolic dysfunction with EF of 15- 20%. Denies any prior history of heart failure. He reports that he has been having issues with swelling in his lower extremities for the past couple months. He does currently have his LifeVest on. He does report having a significant family history of heart disease however is unable to recall who had what. He is trying to cut back on smoking marijuana. His main complaint is scrotal swelling and constipation. This is very uncomfortable and is he is unable to perform his normal activities at home. Chest x-ray shows mild/moderate CHF, with enlarging moderate sized right pleural effusion. Labs reviewed: Hemoglobin 11.3, creatinine 2.26, potassium 4.4, BNP 29331. Echocardiogram 08/12/2023 with a EF 15-20%, moderate mitral regurgitation and tricuspid regurgitation. REVIEW OF SYSTEMS: No fever or chills. No cough or expectoration. No diaphoresis. Patient denies headache, dizziness, blurred vision, double vision. Patient denies any stomach discomfort. No nausea, vomiting. No hematochezia. No hematemesis. Denies any black stools or blood in his stools. Denies dysuria or hematuria. No muscle weakness or numbness. No chest pain or pressure. Reports scrotal swelling and shortness of breath. PHYSICAL EXAMINATION: This is a 58-year-old male in no apparent distress at the time of my examination. HEENT: Head is atraumatic, normocephalic. Pupils are equal, round. Sclerae anicteric. Conjunctivae are clear. Mucous membranes of the mouth are moist. Neck is supple. There is no jugular venous distention. No carotid bruit is heard. CHEST EXAMINATION: Lungs are clear to auscultation. No chest wall tenderness is noted on palpation or with deep breathing. HEART EXAMINATION: Heart regular rate and rhythm. S1, S2 heard. No murmurs, gallops or rub. ABDOMEN: Soft, nontender. Bowel sounds are heard. EXTREMITIES: 2+ peripheral pulses with +1 BLE edema and no calf tenderness noted. NEUROLOGIC EXAMINATION: Patient is awake, alert and oriented x3. IMPRESSION AND PLAN: Acute systolic heart failure Cardiomyopathy of unclear etiology Acute kidney injury Diabetes type 2 Hyperlipidemia Hypertension Marijuana use Moderate right pleural effusion Moderate mitral regurgitation PLAN: We will increase Lasix to 80 mg 3 times daily. Continue with LifeVest. Will check lambda and kappa light chains. Will check limited echo to reevaluate EF. Will consider right heart cath on Friday to measure pressures. We will follow. I am dictating on behalf of Dr. Gerson Gates's history/physical and assessment/plan. 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 Past Anesthesia/Blood Transfusion Reactions: No Reported Reaction Past Psychological History: Depression Smoking Status: Vaper Past Alcohol Use History: None Reported, Occasional Past Drug Use History: Marijuana Medications and Allergies Home Medications Medication Instructions Recorded Confirmed Type Dulaglutide [Trulicity] 1.5 mg SQ FR 02/19/23 09/06/23 History Simvastatin [Zocor] 20 mg PO DAILY 02/19/23 09/06/23 History Albuterol Sulfate [Albuterol 2 puff PO RT-Q6H PRN 08/11/23 09/06/23 History Sulfate Hfa] Tamsulosin HCl [Flomax] 0.4 mg PO DAILY 08/11/23 09/06/23 History ALPRAZolam [Xanax] 0.25 mg PO TID PRN #6 tab 08/21/23 09/06/23 Rx Midodrine [ProAmatine] 5 mg PO AC-TID PRN #60 tab 08/21/23 09/06/23 Rx Nystatin 100,000 Unit/gm Powd 1 applic TOPICAL BID #1 each 08/21/23 09/06/23 Rx [Mycostatin Powder] carvediloL [Coreg] 3.125 mg PO BID-W/MEALS 30 Days 08/21/23 09/06/23 Rx #60 tab polyethylene glycoL 3350 [Miralax] 17 gm PO DAILY PRN packet 08/21/23 09/06/23 Rx Bumetanide [BUMEX] 1 mg PO DIRECTED 09/06/23 09/06/23 History Allergies Allergy/AdvReac Type Severity Reaction Status Date / Time Penicillins Allergy Rash/Hives Verified 09/06/23 12:51 Sulfa (Sulfonamide Allergy Rash/Hives Verified 09/06/23 12:51 Antibiotics) indomethacin AdvReac Unknown Verified 09/06/23 12:51 potassium chloride AdvReac Unknown Verified 09/06/23 12:51 Physical Exam Vitals: Vital Signs Temp Pulse Pulse Resp BP BP Pulse Ox 09/06/23 07:00 96.6 F L 83 16 116/75 98 09/06/23 06:32 90 16 117/79 98 09/06/23 05:09 87 16 112/75 96 09/06/23 03:35 88 16 109/87 99 09/06/23 01:47 90 18 148/59 95 09/05/23 17:07 98.7 F 100 18 110/76 99 Intake and Output 09/05/23 09/06/23 09/06/23 22:59 06:59 14:59 Intake Total 240 Output Total 900 Balance -900 240 Intake: Oral 240 Output: Gastric Drainage 0 Urine 900 Stool 0 Urine/Stool Mix 0 Emesis 0 Oral Regurgitation 0 Other 0 Other: Voiding Method Urinal # Voids 0 2 # Bowel Movements 0 Weight 113.398 kg Results 09/05/23 18:19 09/05/23 18:19 Cardiac Enzymes 09/05/23 Range/Units 18:19 AST 30 (17-59) U/L CBC 09/05/23 Range/Units 18:19 WBC 3.3 L (3.8-10.6) k/uL RBC 4.15 L (4.30-5.90) m/uL Hgb 11.3 L (13.0-17.5) gm/dL Hct 35.4 L (39.0-53.0) % Plt Count 145 L (150-450) k/uL Comprehensive Metabolic Panel 09/05/23 Range/Units 18:19 Sodium 138 (137-145) mmol/L Potassium 4.4 (3.5-5.1) mmol/L Chloride 107 (98-107) mmol/L Carbon Dioxide 24 (22-30) mmol/L BUN 34 H (9-20) mg/dL Creatinine 2.26 H (0.66-1.25) mg/dL Glucose 85 (74-99) mg/dL Calcium 9.0 (8.4-10.2) mg/dL AST 30 (17-59) U/L ALT 16 (4-49) U/L Alkaline Phosphatase 101 (38-126) U/L Total Protein 6.9 (6.3-8.2) g/dL Albumin 3.7 (3.5-5.0) g/dL Current Medications Generic Name Dose Route Start Last Admin Trade Name Freq PRN Reason Stop Dose Admin Furosemide 40 mg 09/06/23 04:00 09/06/23 11:56 Furosemide 10 Mg/Ml 4 Ml Vial IV 40 mg Q8H ROSE Administration Intake and Output 09/05/23 09/06/23 09/06/23 22:59 06:59 14:59 Intake Total 240 Output Total 900 Balance -900 240 Intake: Oral 240 Output: Gastric Drainage 0 Urine 900 Stool 0 Urine/Stool Mix 0 Emesis 0 Oral Regurgitation 0 Other 0 Other: Voiding Method Urinal # Voids 0 2 # Bowel Movements 0 Weight 113.398 kg 09/05/23 18:19 09/05/23 18:19
[2023-09-06] MEDS ORDERED: MIDODRINE 5 MG TAB PO PRN (15:14)
[2023-09-06] MEDS: FUROSEMIDE 10 MG/ML 10 ML VIAL IV SCH (16:29)
[2023-09-06] MEDS: ATORVASTATIN 10 MG TAB PO SCH (16:29)
[2023-09-06] MEDS: TAMSULOSIN 0.4 MG CAP.ER.24H PO SCH (16:29)
[2023-09-06] MEDS: carvediloL 3.125 MG TAB PO SCH (16:29)
[2023-09-07] MEDS: ALBUTEROL NEBULIZED 2.5 MG/3 ML INHALATION PRN (00:48)
[2023-09-07 07:58] LABS: Glucose,Whole Blood 89 mg/dL (70-110)
[2023-09-07 08:18] LABS: Anisocytosis Slight; HCT 35.4 % (39.0-53.0); HGB 11.1 gm/dL (13.0-17.5); Hypochromasia Marked; MCH 27.2 pg (25.0-35.0); MCHC 31.4 g/dL (31.0-37.0); MCV 86.6 fL (80.0-100.0); Mean Platelet Volume 8.6; Platelet Count 127 k/uL (150-450); RBC 4.08 m/uL (4.30-5.90); RDW 16.7 % (11.5-15.5); WBC 3.1 k/uL (3.8-10.6)
[2023-09-07 08:35] LABS: African American GFR (CKD) 36 (>60 ml/min/1.73 sqM); Anion Gap 10 mmol/L; Blood Urea Nitrogen 36 mg/dL (9-20); Calcium 9.1 mg/dL (8.4-10.2); Carbon Dioxide 24 mmol/L (22-30); Chloride 104 mmol/L (98-107); Glucose 90 mg/dL (74-99); Non-African American GFR(CKD) 31 (>60 ml/min/1.73 sqM); Sodium 138 mmol/L (137-145)
--- NOTE | 2023-09-07 08:50 | CA ---
Transthoracic Echo Report Name: Isiah Rodríguez Age: 58 Gender: M : 1965 Exam Date: 09/06/2023 15:37 Exam Location: [facility] Ht (in): 68 Wt (lb): 250 Ordering Physician: Yoselyn Banegas Attending/Referring Phys: Orthopedic Specialist Jasmin Laird RDCS Procedure CPT: Indications: chf Cardiac Hx: Technical Quality: Fair Contrast 1: Total Dose (mL): Contrast 2: Total Dose (mL): MEASUREMENTS (Male / Female) Normal Values 2D ECHO LV Diastolic Diameter PLAX 6.4 cm 4.2 - 5.9 / 3.9 - 5.3 cm LV Systolic Diameter PLAX 6.0 cm IVS Diastolic Thickness 1.0 cm 0.6 - 1.0 / 0.6 - 0.9 cm LVPW Diastolic Thickness 1.0 cm 0.6 - 1.0 / 0.6 - 0.9 cm LV Relative Wall Thickness 0.3 FINDINGS Left Ventricle Left ventricular wall thickness normal. Left ventricular dilatation. Severely reduced global left ventricular systolic function. Left ventricular ejection fraction is estimated at 20-25 %. Right Ventricle Right Atrium Left Atrium Mitral Valve [id number] mitral regurgitation. Aortic Valve Tricuspid Valve Pulmonic Valve Pericardium No pericardial effusion. Pleural effusion. Aorta CONCLUSIONS Left ventricular ejection fraction 20-25% Moderate to severe mitral regurgitation Previewed by: Dr. Gerson Gates DO (Electronically Signed) Final Date: 07 September 2023 08:49
[2023-09-07 09:01] LABS: Anisocytosis (M) Present; Band Neutrophils % 2 %; Eosinophils # (M) 0.16 k/uL (0-0.7); Hypochromasia (M) Present; Lymphocytes # (M) 0.74 k/uL (1.0-4.8); Monocytes # (M) 0.34 k/uL (0-1.0); Neutrophils % (M) 58 %; Nucleated Red Blood Cells 0 /100 WBC (0-0); Total Cells Counted 100
[2023-09-07 12:30] LABS: Glucose,Whole Blood 137 mg/dL (70-110)
[2023-09-07] MEDS: ALPRAZolam 0.25 MG TAB PO PRN (12:43)
--- NOTE | 2023-09-07 13:18 | P.HPIM ---
History of Present Illness H&P Date: 09/06/23 Chief Complaint: Shortness of breath 58-year-old male with significant past medical history diabetes type 2 since age 45, asthma, hypertension, hyperlipidemia and more recently acute systolic heart failure who presents for worsening edema and shortness of breath. He has pre viously seen Dr. Mccartney. He was recently admitted a few weeks ago and found to have severe LV systolic dysfunction with EF of 15-20%. Denies any prior history of heart failure. He reports that he has been having issues with swelling in his lower extremities for the past couple months. He does currently have his LifeVest on. He does report having a significant family history of heart disease however is unable to recall who had what. He is trying to cut back on smoking marijuana. His main complaint is scrotal swelling and constipation. This is very uncomfortable and is he is unable to perform his normal activities at home. --Chest x-ray shows mild/moderate CHF, with enlarging moderate sized right pleural effusion. --Labs reviewed: WBC of 3.3, hemoglobin 11.3, platelet count of 145, sodium 138, potassium 4.4, BUN of 34, creatinine 2.26, BNP 36063. -- Last echocardiogram 08/12/2023 with a EF 15-20%, moderate mitral regurgitation and tricuspid regurgitation. Review of Systems REVIEW OF SYSTEMS: CONSTITUTIONAL: No fever, no malaise, no fatigue. HEENT: No recent visual problems or hearing problems. Denied any sore throat. CARDIOVASCULAR: No chest pain, orthopnea, PND, no palpitations, no syncope. PULMONARY: No shortness of breath, no cough, no hemoptysis. GASTROINTESTINAL: No diarrhea, no nausea, no vomiting, no abdominal pain. NEUROLOGICAL: No headaches, no weakness, no numbness. HEMATOLOGICAL: Denies any bleeding or petechiae. GENITOURINARY: Denies any burning micturition, frequency, or urgency. MUSCULOSKELETAL/RHEUMATOLOGICAL: Denies any joint pain, swelling, or any muscle pain. ENDOCRINE: Denies any polyuria or polydipsia. The rest of the 14-point review of systems is negative. 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 Past Anesthesia/Blood Transfusion Reactions: No Reported Reaction Past Psychological History: Depression Smoking Status: Vaper Past Alcohol Use History: None Reported, Occasional Past Drug Use History: Marijuana Medications and Allergies Home Medications Medication Instructions Recorded Confirmed Type Dulaglutide [Trulicity] 1.5 mg SQ FR 02/19/23 09/06/23 History Simvastatin [Zocor] 20 mg PO DAILY 02/19/23 09/06/23 History Albuterol Sulfate [Albuterol 2 puff PO RT-Q6H PRN 08/11/23 09/06/23 History Sulfate Hfa] Tamsulosin HCl [Flomax] 0.4 mg PO DAILY 08/11/23 09/06/23 History ALPRAZolam [Xanax] 0.25 mg PO TID PRN #6 tab 08/21/23 09/06/23 Rx Midodrine [ProAmatine] 5 mg PO AC-TID PRN #60 tab 08/21/23 09/06/23 Rx Nystatin 100,000 Unit/gm Powd 1 applic TOPICAL BID #1 each 08/21/23 09/06/23 Rx [Mycostatin Powder] carvediloL [Coreg] 3.125 mg PO BID-W/MEALS 30 Days 08/21/23 09/06/23 Rx #60 tab polyethylene glycoL 3350 [Miralax] 17 gm PO DAILY PRN packet 08/21/23 09/06/23 Rx Bumetanide [BUMEX] 1 mg PO DIRECTED 09/06/23 09/06/23 History Allergies Allergy/AdvReac Type Severity Reaction Status Date / Time Penicillins Allergy Rash/Hives Verified 09/06/23 12:51 Sulfa (Sulfonamide Allergy Rash/Hives Verified 09/06/23 12:51 Antibiotics) indomethacin AdvReac Unknown Verified 09/06/23 12:51 potassium chloride AdvReac Unknown Verified 09/06/23 12:51 Physical Exam Vitals: Vital Signs Temp Pulse Pulse Resp BP BP Pulse Ox 09/06/23 07:00 96.6 F L 83 16 116/75 98 09/06/23 06:32 90 16 117/79 98 09/06/23 05:09 87 16 112/75 96 09/06/23 03:35 88 16 109/87 99 02/03/24 01:47 90 18 148/59 95 09/05/23 17:07 98.7 F 100 18 110/76 99 Intake and Output 09/05/23 09/06/23 09/06/23 22:59 06:59 14:59 Intake Total 240 Output Total 900 Balance -900 240 Intake: Oral 240 Output: Gastric Drainage 0 Urine 900 Stool 0 Urine/Stool Mix 0 Emesis 0 Oral Regurgitation 0 Other 0 Other: Voiding Method Urinal # Voids 0 2 # Bowel Movements 0 Weight 113.398 kg General: Well-appearing, nontoxic, no acute distress. Head: Normocephalic, atraumatic Eyes: PERRLA, EOMI ENT: Airway patent Chest: Nonlabored breathing Skin: No visual rash, normal skin tone Neuro: Alert and oriented 3 Musculoskeletal: No gross abnormalities Results CBC & Chem 7: 09/07/23 07:37 09/07/23 07:37 Labs: Abnormal Lab Results - Last 24 Hours (Table) 09/05/23 09/05/23 09/05/23 Range/Units 18:19 18:19 18:19 WBC 3.3 L (3.8-10.6) k/uL RBC 4.15 L (4.30-5.90) m/uL Hgb 11.3 L (13.0-17.5) gm/dL Hct 35.4 L (39.0-53.0) % RDW 16.7 H (11.5-15.5) % Plt Count 145 L (150-450) k/uL Lymphocytes # (Manual) 0.56 L (1.0-4.8) k/uL BUN 34 H (9-20) mg/dL Creatinine 2.26 H (0.66-1.25) mg/dL Urine Protein 1+ H (Negative) Urine Mucus Rare H (None) /hpf Assessment and Plan Assessment: 1. Acute exacerbation [place] [address] Patient received IV Lasix in ED; patient has been evaluated by cardiology and recommending to increase his Lasix to 80 mg 3 times daily -We will monitor strict SHARRON's, daily weights, low-salt and fluid restricted diet -- Further recommendations pending clinical course 2. Severe cardiomyopathy; etiology unclear; patient has LifeVest on 3. Acute renal injury; patient has history of CKD with baseline creatinine of 1.3-1.5 -- Creatinine up to 2.26 upon admission -We will consult nephrology; appreciate recommendations -- Monitor strict SHARRON's, daily weights, renal function and electrolytes; avoid nephrotoxins and hypotension 4. Hypertension; Coreg 3.125 mg twice daily 5. Hyperlipidemia; Zocor 20 mg daily 6. Diabetes mellitus type 2; currently managed on Trulicity; we will monitor Accu-Cheks before every meal and at bedtime with insulin sliding scale 7. BPH; Flomax 0.4 mg daily DVT prophylaxis; SCDs/subcu heparin CODE STATUS; full code
--- NOTE | 2023-09-07 17:18 | P.PN ---
Subjective Progress Note Date: 09/07/23 History of present illness: Patient is a pleasant 58-year-old male with significant past medical history diabetes type 2 since age 45, asthma, hypertension, hyperlipidemia and more recently acute systolic heart failure who presents for worsening edema and shortness of breath. He has previously seen Dr. Mccartney. He was recently admitted a few weeks ago and found to have severe LV systolic dysfunction with EF of 15- 20%. Denies any prior history of heart failure. He reports that he has been having issues with swelling in his lower extremities for the past couple months. He does currently have his LifeVest on. He does report having a significant family history of heart disease however is unable to recall who had what. He is trying to cut back on smoking marijuana. His main complaint is scrotal swelling and constipation. This is very uncomfortable and is he is unable to perform his normal activities at home. Chest x-ray shows mild/moderate CHF, with enlarging moderate sized right pleural effusion. Labs reviewed: Hemoglobin 11.3, creatinine 2.26, potassium 4.4, BNP 86741. Echocardiogram 08/12/2023 with a EF 15-20%, moderate mitral regurgitation and tricuspid regurgitation. 09/07/23 ECHO with slight improvement of EF to 20-25%, moderate to severe mitral regurgitation. Creat stable at 2.27. He reports having increased stress from family issues and needed a xanax today. Otherwise he is doing ok. No chest pain. Shortness of breath stable. Slight improvement in edema. PHYSICAL EXAMINATION: This is a 58-year-old male in no apparent distress at the time of my examination. HEENT: Head is atraumatic, normocephalic. Pupils are equal, round. Sclerae anicteric. Conjunctivae are clear. Mucous membranes of the mouth are moist. Neck is supple. There is no jugular venous distention. No carotid bruit is heard. CHEST EXAMINATION: Lungs are clear to auscultation. No chest wall tenderness is noted on palpation or with deep breathing. HEART EXAMINATION: Heart regular rate and rhythm. S1, S2 heard. No murmurs, gallops or rub. ABDOMEN: Soft, nontender. Bowel sounds are heard. EXTREMITIES: 2+ peripheral pulses with +1 BLE edema and no calf tenderness noted. NEUROLOGIC EXAMINATION: Patient is awake, alert and oriented x3. IMPRESSION AND PLAN: Acute systolic heart failure Cardiomyopathy of unclear etiology Acute kidney injury Diabetes type 2 Hyperlipidemia Hypertension Marijuana use Moderate right pleural effusion Moderate mitral regurgitation PLAN: Continue Lasix to 80 mg 3 times daily. Monitor kidney function. Continue with LifeVest. Lambda and kappa light chains- PENDING. Will consider right heart cath on Friday to measure pressures, concern for possible end stage heart failure. We will follow. NPO after midnight. I am dictating on behalf of Dr. Gerson Gates's history/physical and assessment/plan. Objective - Vital Signs Vital signs: Vital Signs Temp 97.8 F 09/07/23 12:22 Pulse 89 09/07/23 12:22 Resp 19 09/07/23 12:22 BP 112/81 09/07/23 12:22 Pulse Ox 100 09/07/23 12:22 FiO2 Intake & Output 09/06/23 09/07/23 09/07/23 18:59 06:59 18:59 Intake Total 240 Output Total 0 800 Balance 240 -800 Weight 113.398 kg 118 kg Intake: Oral 240 Output: Urine 800 Stool 0 Other: Voiding Method Urinal Urinal Urinal # Voids 2 1 - Labs CBC & Chem 7: 09/07/23 07:37 09/07/23 07:37 Labs: Abnormal Lab Results - Last 24 Hours (Table) 09/07/23 09/07/23 09/07/23 Range/Units 07:37 07:37 12:29 WBC 3.1 L (3.8-10.6) k/uL RBC 4.08 L (4.30-5.90) m/uL Hgb 11.1 L (13.0-17.5) gm/dL Hct 35.4 L (39.0-53.0) % RDW 16.7 H (11.5-15.5) % Plt Count 127 L (150-450) k/uL Lymphocytes # (Manual) 0.74 L (1.0-4.8) k/uL BUN 36 H (9-20) mg/dL Creatinine 2.27 H (0.66-1.25) mg/dL POC Glucose (mg/dL) 137 H (70-110) mg/dL
[2023-09-07 17:48] LABS: Glucose,Whole Blood 100 mg/dL (70-110)
--- NOTE | 2023-09-07 18:50 | P.PN ---
Subjective Progress Note Date: 09/07/23 58-year-old male with significant past medical history diabetes type 2 since age 45, asthma, hypertension, hyperlipidemia and more recently acute systolic heart failure who presents for worsening edema and shortness of breath. He has previously seen Dr. Mccartney. He was recently admitted a few weeks ago and found to have severe LV systolic dysfunction with EF of 15-20%. Denies any prior history of heart failure. He reports that he has been having issues with swelling in his lower extremities for the past couple months. He does currently have his LifeVest on. He does report having a significant family history of heart disease however is unable to recall who had what. He is trying to cut back on smoking marijuana. His main complaint is scrotal swelling and constipation. This is very uncomfortable and is he is unable to perform his normal activities at home. --Chest x-ray shows mild/moderate CHF, with enlarging moderate sized right pleural effusion. --Labs reviewed: WBC of 3.3, hemoglobin 11.3, platelet count of 145, sodium 138, potassium 4.4, BUN of 34, creatinine 2.26, BNP 95384. -- Last echocardiogram 08/12/2023 with a EF 15-20%, moderate mitral regurgitation and tricuspid regurgitation. -- Cardiology recommending to continue Lasix to 80 mg 3 times daily. Monitor kidney function. Continue with LifeVest. Lambda and kappa light chains- PENDING. Will consider right heart cath on Friday to measure pressures, concern for possible end stage heart failure. We will follow. NPO after midnight. Objective - Vital Signs Vital signs: Vital Signs Temp 97.5 F L 09/07/23 07:48 Pulse 68 09/07/23 09:17 Resp 18 09/07/23 07:48 BP 108/74 09/07/23 07:48 Pulse Ox 99 09/07/23 07:48 FiO2 Intake & Output 09/06/23 09/07/23 09/07/23 18:59 06:59 18:59 Intake Total 240 Output Total 0 800 Balance 240 -800 Weight 113.398 kg 118 kg Intake: Oral 240 Output: Urine 800 Stool 0 Other: Voiding Method Urinal Urinal Urinal # Voids 2 1 - Exam General: Well-appearing, nontoxic, no acute distress. Head: Normocephalic, atraumatic Eyes: PERRLA, EOMI ENT: Airway patent Chest: Nonlabored breathing Skin: No visual rash, normal skin tone Neuro: Alert and oriented 3 Musculoskeletal: No gross abnormalities - Labs CBC & Chem 7: 09/07/23 07:37 09/07/23 07:37 Labs: Abnormal Lab Results - Last 24 Hours (Table) 09/07/23 09/07/23 09/07/23 Range/Units 07:37 07:37 12:29 WBC 3.1 L (3.8-10.6) k/uL RBC 4.08 L (4.30-5.90) m/uL Hgb 11.1 L (13.0-17.5) gm/dL Hct 35.4 L (39.0-53.0) % RDW 16.7 H (11.5-15.5) % Plt Count 127 L (150-450) k/uL Lymphocytes # (Manual) 0.74 L (1.0-4.8) k/uL BUN 36 H (9-20) mg/dL Creatinine 2.27 H (0.66-1.25) mg/dL POC Glucose (mg/dL) 137 H (70-110) mg/dL Assessment and Plan Assessment: 1. Acute exacerbation [place] [address] Patient received IV Lasix in ED; patient has been evaluated by cardiology and recommending to increase his Lasix to 80 mg 3 times daily -We will monitor strict SHARRON's, daily weights, low-salt and fluid restricted diet -- Further recommendations pending clinical course 2. Severe cardiomyopathy; etiology unclear; patient has LifeVest on 3. Acute renal injury; patient has history of CKD with baseline creatinine of 1.3-1.5 -- Creatinine up to 2.26 upon admission -We will consult nephrology; appreciate recommendations -- Monitor strict SHARRON's, daily weights, renal function and electrolytes; avoid nephrotoxins and hypotension 4. Hypertension; Coreg 3.125 mg twice daily 5. Hyperlipidemia; Zocor 20 mg daily 6. Diabetes mellitus type 2; currently managed on Trulicity; we will monitor Accu-Cheks before every meal and at bedtime with insulin sliding scale 7. BPH; Flomax 0.4 mg daily DVT prophylaxis; SCDs/subcu heparin CODE STATUS; full code
[2023-09-08] MEDS: FAMOTIDINE 20 MG/2 ML VIAL IV SCH (09:17)
[2023-09-08] MEDS: HEPARIN SODIUM,PORCINE 5,000 UNIT/ML 1 ML VIAL SQ SCH (09:18)
[2023-09-08] MEDS ORDERED: NITROGLYCERIN SL TABS 0.4 MG TAB SUBLINGUAL PRN (09:40)
--- NOTE | 2023-09-08 09:44 | P.PN ---
Subjective Progress Note Date: 09/08/23 History of present illness: Patient is a pleasant 58-year-old male with significant past medical history diabetes type 2 since age 45, asthma, hypertension, hyperlipidemia and more recently acute systolic heart failure who presents for worsening edema and shortness of breath. He has previously seen Dr. Mccartney. He was recently admitted a few weeks ago and found to have severe LV systolic dysfunction with EF of 15- 20%. Denies any prior history of heart failure. He reports that he has been having issues with swelling in his lower extremities for the past couple months. He does currently have his LifeVest on. He does report having a significant family history of heart disease however is unable to recall who had what. He is trying to cut back on smoking marijuana. His main complaint is scrotal swelling and constipation. This is very uncomfortable and is he is unable to perform his normal activities at home. Chest x-ray shows mild/moderate CHF, with enlarging moderate sized right pleural effusion. Labs reviewed: Hemoglobin 11.3, creatinine 2.26, potassium 4.4, BNP 10332. Echocardiogram 08/12/2023 with a EF 15-20%, moderate mitral regurgitation and tricuspid regurgitation. 09/07/23 ECHO with slight improvement of EF to 20-25%, moderate to severe mitral regurgitation. Creat stable at 2.27. He reports having increased stress from family issues and needed a xanax today. Otherwise he is doing ok. No chest pain. Shortness of breath stable. Slight improvement in edema. 09/08 No complaints of chest pain, shortness of breath is stable. Blood pressure 100/66, heart rate in the 80s, pulse ox 90% on room air. Patient is maintained on IV Lasix 80 mg every 8 hours. Weights do not appear to be accurate. Patient had a negative fluid balance yesterday of 560 mL. No repeat blood work for today. BMP ordered for tomorrow PHYSICAL EXAMINATION: This is a 58-year-old male in no apparent distress at the time of my examination. HEENT: Head is atraumatic, normocephalic. Pupils are equal, round. Sclerae anicteric. Conjunctivae are clear. Mucous membranes of the mouth are moist. Neck is supple. There is no jugular venous distention. No carotid bruit is heard. CHEST EXAMINATION: Lungs are clear to auscultation. No chest wall tenderness is noted on palpation or with deep breathing. HEART EXAMINATION: Heart regular rate and rhythm. S1, S2 heard. No murmurs, gallops or rub. ABDOMEN: Soft, nontender. Bowel sounds are heard. EXTREMITIES: 2+ peripheral pulses with +1 BLE edema and no calf tenderness noted. NEUROLOGIC EXAMINATION: Patient is awake, alert and oriented x3. IMPRESSION AND PLAN: Acute systolic heart failure Cardiomyopathy of unclear etiology Acute kidney injury Diabetes type 2 Hyperlipidemia Hypertension Marijuana use Moderate right pleural effusion Moderate mitral regurgitation PLAN: Continue IV Lasix 80 mg and decrease frequency to twice daily Monitor SHARRON, daily weights, electrolytes and renal function Patient will be scheduled for left heart cath and right heart cath tomorrow with Dr. Pardeep Cheung N.p.oAbdirahman after midnight BMP in the morning to be run stat prior to heart cath Further recommendations as patient progresses Nurse practitioner note has been reviewed, I agree with documented findings and plan of care. Patient was seen and examined. Objective - Vital Signs Vital signs: Vital Signs Temp 97.4 F L 09/08/23 01:47 Pulse 82 09/08/23 09:25 Resp 17 09/08/23 01:47 BP 100/66 09/08/23 01:47 Pulse Ox 98 09/08/23 01:47 FiO2 Intake & Output 09/07/23 09/08/23 09/08/23 18:59 06:59 18:59 Intake Total 1200 Output Total 600 Balance 1200 -600 Weight 74 kg Intake: Oral 1200 Output: Urine 600 Other: Voiding Method Urinal Urinal # Voids 2 - Labs CBC & Chem 7: 09/07/23 07:37 09/07/23 07:37 Labs: Abnormal Lab Results - Last 24 Hours (Table) 09/07/23 Range/Units 12:29 POC Glucose (mg/dL) 137 H (70-110) mg/dL
[2023-09-08 11:39] LABS: BUN/Creat Ratio 14.43 Ratio (12.00-20.00); Blood Urea Nitrogen 33.2 mg/dL (9.0-27.0); Calcium 9.1 mg/dL (8.7-10.3); Carbon Dioxide 26.1 mmol/L (21.6-31.8); Chloride 101 mmol/L (96-109); Glucose 89 mg/dL (70-110); Potassium 4.1 mmol/L (3.5-5.5); Sodium 139 mmol/L (135-145)
--- NOTE | 2023-09-08 12:10 | P.NPCON ---
History of Present Illness - Reason for Consult acute renal failure - History of Present Illness Patient is a 58-year-old male with history of type 2 diabetes, hypertension, CHF with ejection fraction of 15 to 20%. Patient is admitted to the hospital with complaints of increased lower extremity swelling and scrotal swelling. He has also been short of breath. Currently maintained on IV diuretics. Patient was seen in consultation during his hospitalization in August 2023. Mostly cardiorenal syndrome with serum creatinine peaked at 2.6 and subsequently stable around 2.1 to 2.2 mg/dL since 08/16/2023. Shortness of breath has improved. Patient is voiding. Serum creatinine at 2.3 mg/dL. Blood pressure is on the lower side. Maintained on midodrine Review of Systems As per HPI 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 Past Anesthesia/Blood Transfusion Reactions: No Reported Reaction Past Psychological History: Depression Smoking Status: Vaper Past Alcohol Use History: None Reported, Occasional Past Drug Use History: Marijuana Medications and Allergies Home Medications Medication Instructions Recorded Confirmed Type Dulaglutide [Trulicity] 1.5 mg SQ FR 02/19/23 09/06/23 History Simvastatin [Zocor] 20 mg PO DAILY 02/19/23 09/06/23 History Albuterol Sulfate [Albuterol 2 puff PO RT-Q6H PRN 08/11/23 09/06/23 History Sulfate Hfa] Tamsulosin HCl [Flomax] 0.4 mg PO DAILY 08/11/23 09/06/23 History ALPRAZolam [Xanax] 0.25 mg PO TID PRN #6 tab 08/21/23 09/06/23 Rx Midodrine [ProAmatine] 5 mg PO AC-TID PRN #60 tab 08/21/23 09/06/23 Rx Nystatin 100,000 Unit/gm Powd 1 applic TOPICAL BID #1 each 08/21/23 09/06/23 Rx [Mycostatin Powder] carvediloL [Coreg] 3.125 mg PO BID-W/MEALS 30 Days 08/21/23 09/06/23 Rx #60 tab polyethylene glycoL 3350 [Miralax] 17 gm PO DAILY PRN packet 08/21/23 09/06/23 Rx Bumetanide [BUMEX] 1 mg PO DIRECTED 09/06/23 09/06/23 History Allergies Allergy/AdvReac Type Severity Reaction Status Date / Time Penicillins Allergy Rash/Hives Verified 09/06/23 12:51 Sulfa (Sulfonamide Allergy Rash/Hives Verified 09/06/23 12:51 Antibiotics) indomethacin AdvReac Unknown Verified 09/06/23 12:51 potassium chloride AdvReac Unknown Verified 09/06/23 12:51 Physical Exam Vitals: Vital Signs Temp Pulse Pulse Resp BP BP Pulse Ox 09/08/23 09:35 82 09/08/23 09:25 82 09/08/23 08:12 97.4 F L 85 16 100/67 100 09/08/23 01:47 97.4 F L 83 17 100/66 98 09/07/23 20:26 84 09/07/23 20:19 84 09/07/23 19:19 97.7 F 80 16 106/77 97 09/07/23 12:22 97.8 F 89 19 112/81 100 Intake and Output 09/07/23 09/08/23 09/08/23 22:59 06:59 14:59 Output Total 300 300 475 Balance -300 -300 -475 Output: Urine 300 300 475 Other: Voiding Method Urinal Weight 74 kg Patient is awake, comfortable, no acute distress Alert oriented x 3 Examination of the heart S1 and S2 Examination of the lungs bilateral breath sounds are heard Abdomen is soft distended nontender obese Examination of lower extremities shows edema 3+ bilaterally with significant scrotal edema CMV DRIVER exam grossly intact Results - Lab Results Most recent lab results Calcium 9.1 mg/dL (8.7-10.3) 09/08/23 06:52 Phosphorus 4.0 mg/dL (2.5-4.5) 09/05/23 18:19 Magnesium 2.0 mg/dL (1.6-2.3) 09/05/23 18:19 09/07/23 07:37 09/08/23 06:52 Assessment and Plan Assessment: 1. Acute kidney injury, cardiorenal syndrome with stable renal function with serum creatinine staying around 2.2 mg/dL. No evidence of obstruction on ultrasound on 08/15/2023. UA shows 1+ protein otherwise benign 2. Volume overload 3. Acute on chronic systolic CHF 4. Cardiomyopathy with a EF of 15 to 20% 5. Type 2 diabetes maintained on Trulicity 6. BPH maintained on Flomax. 7. Chronic kidney disease stage 2 to 3 AM with serum creatinine fluctuating between 1.3 and 1.5 mg/dL since fall 2022. Multiple episodes of acute kidney injury noted Plan: Accurate I's and O's Continue with current dose of Lasix Repeat labs in a.m. Continue midodrine Continue Flomax Discussed salt restriction. Thank you for the consultation. We will continue to follow the patient with you during his hospitalization.
[2023-09-08 13:12] VITALS: BMI 24.7
[2023-09-08 16:06] LABS: Glucose,Whole Blood 128 mg/dL (70-110)
[2023-09-08] MEDS: FUROSEMIDE 10 MG/ML 10 ML VIAL IV SCH (20:26)
--- NOTE | 2023-09-08 23:44 | P.PN ---
Subjective 58-year-old male with significant past medical history diabetes type 2 since age 45, asthma, hypertension, hyperlipidemia and more recently acute systolic heart failure who presents for worsening edema and shortness of breath. He has previously seen Dr. Mccartney. He was recently admitted a few weeks ago and found to have severe LV systolic dysfunction with EF of 15-20%. Denies any prior history of heart failure. He reports that he has been having issues with swelling in his lower extremities for the past couple months. He does currently have his LifeVest on. He does report having a significant family history of heart disease however is unable to recall who had what. He is trying to cut back on smoking marijuana. His main complaint is scrotal swelling and constipation. This is very uncomfortable and is he is unable to perform his normal activities at home. --Chest x-ray shows mild/moderate CHF, with enlarging moderate sized right pleural effusion. --Labs reviewed: WBC of 3.3, hemoglobin 11.3, platelet count of 145, sodium 138, potassium 4.4, BUN of 34, creatinine 2.26, BNP 35942. -- Last echocardiogram 08/12/2023 with a EF 15-20%, moderate mitral regurgitation and tricuspid regurgitation. -- Cardiology recommending to continue Lasix to 80 mg 3 times daily. Monitor kidney function. Continue with LifeVest. Lambda and kappa light chains- PENDING. Will consider right heart cath on Friday to measure pressures, concern for possible end stage heart failure. We will follow. NPO after midnight. 09/08/2023 Patient sitting up in bed. Awake and oriented and breathing quietly on room air He has 2+ bilateral patellar like edema Compression from exertional dyspnea Remains on IV Solu-Medrol 80 mg twice daily today. Ejection fraction 20-25% with moderate to severe mitral regurgitation Plan for cardiac cath tomorrow morning. Creatinine is stable about 2.3 He has mild pancytopenia with B12 and folate level acceptable Objective - Vital Signs Vital signs: Vital Signs Temp 97.4 F L 09/08/23 08:12 Pulse 82 09/08/23 09:35 Resp 16 09/08/23 08:12 BP 100/67 09/08/23 08:12 Pulse Ox 100 09/08/23 08:12 FiO2 Intake & Output 02/04/24 02/05/24 02/05/24 18:59 06:59 18:59 Intake Total 1200 Output Total 600 475 Balance 1200 -600 -475 Weight 74 kg 74 kg Intake: Oral 1200 Output: Urine 600 475 Other: Voiding Method Urinal Urinal # Voids 2 - Exam GENERAL: The patient is alert and oriented x3, not in any acute distress. Well developed, well nourished. HEENT: Pupils are round and equally reacting to light. EOMI. No scleral icterus. No conjunctival pallor. Normocephalic, atraumatic. No pharyngeal erythema. No thyromegaly. CARDIOVASCULAR: S1 and S2 present. No murmurs, rubs, or gallops. PULMONARY: Chest is clear to auscultation, no wheezing , no crackles. ABDOMEN: Soft, nontender, nondistended, normoactive bowel sounds. No palpable organomegaly. MUSCULOSKELETAL: No joint swelling or deformity. -EXTREMITIES: No cyanosis, clubbing, bilateral pitting leg ma. NEUROLOGICAL: Gross neurological examination did not reveal any focal deficits. SKIN: No rashes. no petechiae. - Labs CBC & Chem 7: 09/07/23 07:37 09/08/23 06:52 Labs: Abnormal Lab Results - Last 24 Hours (Table) 09/08/23 Range/Units 06:52 BUN 33.2 H (9.0-27.0) mg/dL Creatinine 2.3 H (0.6-1.5) mg/dL Est GFR (CKD-EPI) 32 L (>=60) Assessment and Plan Assessment: Acute and chronic systolic congestive heart failure with ejection fraction 20- 25%, status post LifeVest Chronic kidney disease stage III with acute kidney injury secondary to cardiorenal syndrome Mild pancytopenia Hypertension Hyperlipidemia Diabetes mellitus BPH Plan: Continue with IV Lasix Director Of Marketing Analytics plan for cardiac cath Approach team consult Labs and medication were reviewed.. Continue same treatment. Continue with symptomatic treatment. Resume home medication. Monitor labs and vitals. DVT and GI prophylaxis. Further recommendations as per clinical course of the patient DVT prophylaxis: Subcutaneous heparin GI Prophylaxis: Pepcid PT/OT: Pending Prognosis is guarded
[2023-09-09] MEDS: ATORVASTATIN 80 MG TAB PO ONE (06:18)
[2023-09-09] MEDS: ASPIRIN 325 MG TAB PO ONE (06:18)
[2023-09-09] MEDS ORDERED: HEPARIN SODIUM,PORCINE (1 ML) 2,500 UNIT in SODIUM CHLORIDE 0.9% 250 ML IRRIGATION PRN (07:00)
[2023-09-09] MEDS ORDERED: HEPARIN SODIUM,PORCINE 10,000 UNIT in SODIUM CHLORIDE 0.9% 1,000 ML IRRIGATION PRN (07:00)
[2023-09-09 08:32] LABS: African American GFR (CKD) 36 (>60 ml/min/1.73 sqM); Anion Gap 11 mmol/L; Blood Urea Nitrogen 39 mg/dL (9-20); Calcium 8.9 mg/dL (8.4-10.2); Carbon Dioxide 25 mmol/L (22-30); Chloride 102 mmol/L (98-107); Glucose 111 mg/dL (74-99); Non-African American GFR(CKD) 31 (>60 ml/min/1.73 sqM); Potassium 3.9 mmol/L (3.5-5.1); Sodium 138 mmol/L (137-145)
[2023-09-09] MEDS: SODIUM CHLORIDE 0.9% 1,000 ML IV SCH (08:59)
--- NOTE | 2023-09-09 10:19 | P.PN ---
Subjective Progress Note Date: 09/09/23 History of present illness: Patient is a pleasant 58-year-old male with significant past medical history diabetes type 2 since age 45, asthma, hypertension, hyperlipidemia and more recently acute systolic heart failure who presents for worsening edema and shortness of breath. He has previously seen Dr. Mccartney. He was recently admitted a few weeks ago and found to have severe LV systolic dysfunction with EF of 15- 20%. Denies any prior history of heart failure. He reports that he has been having issues with swelling in his lower extremities for the past couple months. He does currently have his LifeVest on. He does report having a significant family history of heart disease however is unable to recall who had what. He is trying to cut back on smoking marijuana. His main complaint is scrotal swelling and constipation. This is very uncomfortable and is he is unable to perform his normal activities at home. Chest x-ray shows mild/moderate CHF, with enlarging moderate sized right pleural effusion. Labs reviewed: Hemoglobin 11.3, creatinine 2.26, potassium 4.4, BNP 37501. Echocardiogram 08/12/2023 with a EF 15-20%, moderate mitral regurgitation and tricuspid regurgitation. 09/07/23 ECHO with slight improvement of EF to 20-25%, moderate to severe mitral regurgitation. Creat stable at 2.27. He reports having increased stress from family issues and needed a xanax today. Otherwise he is doing ok. No chest pain. Shortness of breath stable. Slight improvement in edema. 09/08 No complaints of chest pain, shortness of breath is stable. Blood pressure 100/66, heart rate in the 80s, pulse ox 90% on room air. Patient is maintained on IV Lasix 80 mg every 8 hours. Weights do not appear to be accurate. Patient had a negative fluid balance yesterday of 560 mL. No repeat blood work for today. BMP ordered for tomorrow 09/09 Patient denies having any chest pain. No shortness of breath. Patient was tentatively scheduled for cardiac catheterization. Lab work this morning reveals BUN 39 creatinine 2.26 which appears to be patient's baseline, potassium 3.9. Heart rate 82, blood pressure 93/52, pulse ox 99% on room air. Yesterday, IV Lasix frequency was decreased to twice daily. PHYSICAL EXAMINATION: This is a 58-year-old male in no apparent distress at the time of my examination. HEENT: Head is atraumatic, normocephalic. Pupils are equal, round. Sclerae anicteric. Conjunctivae are clear. Mucous membranes of the mouth are moist. Neck is supple. There is no jugular venous distention. No carotid bruit is heard. CHEST EXAMINATION: Lungs are clear to auscultation. No chest wall tenderness is noted on palpation or with deep breathing. HEART EXAMINATION: Heart regular rate and rhythm. S1, S2 heard. No murmurs, gallops or rub. ABDOMEN: Soft, nontender. Bowel sounds are heard. EXTREMITIES: 2+ peripheral pulses with +1 BLE edema and no calf tenderness noted. NEUROLOGIC EXAMINATION: Patient is awake, alert and oriented x3. IMPRESSION AND PLAN: Acute systolic heart failure Cardiomyopathy of unclear etiology Acute kidney injury Diabetes type 2 Hyperlipidemia Hypertension Marijuana use Moderate right pleural effusion Moderate mitral regurgitation PLAN: Continue IV Lasix 80 mg twice daily Monitor SHARRON, daily weights, electrolytes and renal function Patient will be scheduled for left heart cath and right heart cath today with Dr. Pardeep Cheung N.p.o. Further recommendations as patient progresses Nurse practitioner note has been reviewed, I agree with documented findings and plan of care. Patient was seen and examined. Objective - Vital Signs Vital signs: Vital Signs Temp 98.5 F 09/09/23 07:50 Pulse 82 09/09/23 07:50 Resp 14 09/09/23 07:50 BP 93/52 09/09/23 07:50 Pulse Ox 99 09/09/23 07:50 FiO2 Intake & Output 09/08/23 09/09/23 09/09/23 18:59 06:59 18:59 Intake Total 60 Output Total 850 450 Balance -850 -390 Weight 74 kg 68 kg Intake: Oral 60 Output: Urine 850 450 Other: Voiding Method Urinal - Labs CBC & Chem 7: 09/07/23 07:37 09/09/23 06:12 Labs: Abnormal Lab Results - Last 24 Hours (Table) 09/08/23 09/08/23 09/09/23 Range/Units 06:52 16:04 06:12 BUN 33.2 H 39 H (9.0-27.0) mg/dL Creatinine 2.3 H 2.26 H (0.6-1.5) mg/dL Est GFR (CKD-EPI) 32 L (>=60) Glucose 111 H (74-99) mg/dL POC Glucose (mg/dL) 128 H (70-110) mg/dL
--- NOTE | 2023-09-09 11:48 | P.PN ---
Subjective 58-year-old male with significant past medical history diabetes type 2 since age 45, asthma, hypertension, hyperlipidemia and more recently acute systolic heart failure who presents for worsening edema and shortness of breath. He has previously seen Dr. Mccartney. He was recently admitted a few weeks ago and found to have severe LV systolic dysfunction with EF of 15-20%. Denies any prior history of heart failure. He reports that he has been having issues with swelling in his lower extremities for the past couple months. He does currently have his LifeVest on. He does report having a significant family history of heart disease however is unable to recall who had what. He is trying to cut back on smoking marijuana. His main complaint is scrotal swelling and constipation. This is very uncomfortable and is he is unable to perform his normal activities at home. --Chest x-ray shows mild/moderate CHF, with enlarging moderate sized right pleural effusion. --Labs reviewed: WBC of 3.3, hemoglobin 11.3, platelet count of 145, sodium 138, potassium 4.4, BUN of 34, creatinine 2.26, BNP 88123. -- Last echocardiogram 08/12/2023 with a EF 15-20%, moderate mitral regurgitation and tricuspid regurgitation. -- Cardiology recommending to continue Lasix to 80 mg 3 times daily. Monitor kidney function. Continue with LifeVest. Lambda and kappa light chains- PENDING. Will consider right heart cath on Friday to measure pressures, concern for possible end stage heart failure. We will follow. NPO after midnight. 09/08/2023 Patient sitting up in bed. Awake and oriented and breathing quietly on room air He has 2+ bilateral patellar like edema Compression from exertional dyspnea Remains on IV Solu-Medrol 80 mg twice daily today. Ejection fraction 20-25% with moderate to severe mitral regurgitation Plan for cardiac cath tomorrow morning. Creatinine is stable about 2.3 He has mild pancytopenia with B12 and folate level acceptable 09/09/2023 Patient breathing is stable. He is on room air. His with no shortness of breath at rest, no orthopnea Has minimal leg edema and minimal basilar crepitation He is on IV Lasix 80 mg twice daily with good urine output He is getting normal saline 50 mL/h per day because he is going for cardiac cath with cartilage team. This mild pancytopenia is stable Objective - Vital Signs Vital signs: Vital Signs Temp 98.5 F 09/09/23 07:50 Pulse 82 09/09/23 08:30 Resp 14 09/09/23 08:30 BP 93/52 09/09/23 07:50 Pulse Ox 99 09/09/23 07:50 FiO2 Intake & Output 09/08/23 09/09/23 09/09/23 18:59 06:59 18:59 Intake Total 60 Output Total 850 450 0 Balance -850 -390 0 Weight 74 kg 68 kg Intake: Oral 60 Output: Urine 850 450 Stool 0 Other: Voiding Method Urinal Urinal - Exam GENERAL: The patient is alert and oriented x3, not in any acute distress. Well developed, well nourished. HEENT: Pupils are round and equally reacting to light. EOMI. No scleral icterus. No conjunctival pallor. Normocephalic, atraumatic. No pharyngeal erythema. No thyromegaly. CARDIOVASCULAR: S1 and S2 present. No murmurs, rubs, or gallops. PULMONARY: Chest is clear to auscultation, no wheezing , no crackles. ABDOMEN: Soft, nontender, nondistended, normoactive bowel sounds. No palpable organomegaly. MUSCULOSKELETAL: No joint swelling or deformity. -EXTREMITIES: No cyanosis, clubbing, bilateral pitting leg ma. NEUROLOGICAL: Gross neurological examination did not reveal any focal deficits. SKIN: No rashes. no petechiae. - Labs CBC & Chem 7: 09/07/23 07:37 09/09/23 06:12 Labs: Abnormal Lab Results - Last 24 Hours (Table) 09/08/23 09/09/23 Range/Units 16:04 06:12 BUN 39 H (9-20) mg/dL Creatinine 2.26 H (0.66-1.25) mg/dL Glucose 111 H (74-99) mg/dL POC Glucose (mg/dL) 128 H (70-110) mg/dL Assessment and Plan Assessment: Acute and chronic systolic congestive heart failure with ejection fraction 20- 25%, status post LifeVest Chronic kidney disease stage III with acute kidney injury secondary to cardiorenal syndrome Mild pancytopenia Hypertension Hyperlipidemia Diabetes mellitus BPH Plan: Continue with IV Lasix Hvac Service Technician plan for cardiac cath Cardiology and nephrology team consult Labs and medication were reviewed.. Continue same treatment. Continue with symptomatic treatment. Resume home medication. Monitor labs and vitals. DVT and GI prophylaxis. Further recommendations as per clinical course of the pa tient DVT prophylaxis: Subcutaneous heparin GI Prophylaxis: Pepcid PT/OT: Pending Prognosis is guarded
--- NOTE | 2023-09-09 11:52 | P.PN ---
Subjective Patient is seen for follow-up for acute kidney injury. Admitted for fluid overload and CHF exacerbation. Ejection fraction 15 to 20%. Currently maintained on IV Lasix 80 mg every 12 hours. Patient remains short of breath. Urine output charted at 1300 mL for 24 hours. Weight is significantly lower than on admission. Renal function stable with serum creatinine staying at about 2.2 mg/dL. Objective - Vital Signs Vital signs: Vital Signs Temp 98.5 F 09/09/23 07:50 Pulse 82 09/09/23 08:30 Resp 14 09/09/23 08:30 BP 93/52 09/09/23 07:50 Pulse Ox 99 09/09/23 07:50 FiO2 Intake & Output 09/08/23 09/09/23 09/09/23 18:59 06:59 18:59 Intake Total 60 Output Total 850 450 0 Balance -850 -390 0 Weight 74 kg 68 kg Intake: Oral 60 Output: Urine 850 450 Stool 0 Other: Voiding Method Urinal Urinal - Exam Patient is awake, comfortable, no acute distress Alert oriented x 3 Examination of the heart S1 and S2 Examination of the lungs bilateral breath sounds are heard Abdomen is soft distended nontender obese Examination of lower extremities shows edema 3+ bilaterally with significant scrotal edema 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 Acute kidney injury, cardiorenal syndrome with stable renal function with serum creatinine staying around 2.2 mg/dL. No evidence of obstruction on ultrasound on 08/15/2023. UA shows 1+ protein otherwise benign. Scheduled for cardiac catheterization today. 2. Volume overload 3. Acute on chronic systolic CHF 4. Cardiomyopathy with a EF of 15 to 20% 5. Type 2 diabetes maintained on Trulicity 6. BPH maintained on Flomax. 7. Chronic kidney disease stage 2 to 3 AM with serum creatinine fluctuating between 1.3 and 1.5 mg/dL since fall 2022. Multiple episodes of acute kidney inj ury noted Plan: Accurate I's and O's Monitor for ATN post cardiac catheterization. At this time renal function is stable therefore we can proceed with catheterization. Continue with current dose of Lasix Repeat labs in a.m. Continue midodrine Continue Flomax Discussed salt restriction.
[2023-09-09 15:02] LABS: Free Kappa Lt Chain Qnt, Serum 5.86 mg/dL (0.33-1.94); Free Lambda Lt Chain Qnt, Seru 1.51 mg/dL (0.57-2.63)
[2023-09-10 07:49] LABS: African American GFR (CKD) 38 (>60 ml/min/1.73 sqM); Anion Gap 9 mmol/L; Blood Urea Nitrogen 41 mg/dL (9-20); Carbon Dioxide 25 mmol/L (22-30); Chloride 104 mmol/L (98-107); Glucose 116 mg/dL (74-99); Non-African American GFR(CKD) 33 (>60 ml/min/1.73 sqM); Potassium 4.1 mmol/L (3.5-5.1); Sodium 138 mmol/L (137-145)
--- NOTE | 2023-09-10 11:40 | P.PN ---
Subjective Patient is seen for follow-up for acute kidney injury. Admitted for fluid overload and CHF exacerbation. Ejection fraction 15 to 20%. Currently maintained on IV Lasix 80 mg every 12 hours. Patient remains short of breath. Urine output charted at 500 mL for 24 hours. Scheduled for cardiac cath today. Objective - Vital Signs Vital signs: Vital Signs Temp 98.1 F 09/10/23 07:55 Pulse 52 L 09/10/23 07:55 Resp 16 09/10/23 08:00 BP 113/77 09/10/23 07:55 Pulse Ox 99 09/10/23 07:55 FiO2 Intake & Output 09/09/23 09/10/23 09/10/23 18:59 06:59 18:59 Intake Total 100 Output Total 100 400 250 Balance -100 -300 -250 Weight 113.4 kg Intake: Oral 100 Output: Urine 100 400 250 Stool 0 Other: Voiding Method Urinal Toilet Toilet Urinal # Voids 1 - Exam Patient is awake, comfortable, no acute distress Alert oriented x 3 Examination of the heart S1 and S2 Examination of the lungs bilateral breath sounds are heard Abdomen is soft distended nontender obese Examination of lower extremities shows edema 3+ bilaterally with significant scrotal edema 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 Acute kidney injury, cardiorenal syndrome with stable renal function with serum creatinine staying around 2.2 mg/dL. No evidence of obstruction on ultrasound on 08/15/2023. UA shows 1+ protein otherwise benign. Scheduled for cardiac catheterization today. 2. Volume overload 3. Acute on chronic systolic CHF 4. Cardiomyopathy with a EF of 15 to 20% 5. Type 2 diabetes maintained on Trulicity 6. BPH maintained on Flomax. 7. Chronic kidney disease stage 2 to 3 A with serum creatinine fluctuating between 1.3 and 1.5 mg/dL since fall 2022. Multiple episodes of acute kidney injury noted Plan: DC IV fluids Resume Lasix Repeat labs in a.m. May need to consider Lasix drip.
[2023-09-10] MEDS: SODIUM CHLORIDE 0.9% 1,000 ML IV ONE (12:11)
[2023-09-10] MEDS: MIDAZOLAM 2 MG/2 ML VIAL IVP ONE ×2 (12:28)
[2023-09-10] MEDS: LIDOCAINE 1% INJ 10MG/ML (20 ML MDV) SQ ONE (12:30)
[2023-09-10] MEDS: VERAPAMIL SYRINGE (5 MG/10 ML) INTRAARTER ONE (12:34)
--- NOTE | 2023-09-10 12:39 | P.PN ---
Subjective Progress Note Date: 09/10/23 History of present illness: Patient is a pleasant 58-year-old male with significant past medical history diabetes type 2 since age 45, asthma, hypertension, hyperlipidemia and more recently acute systolic heart failure who presents for worsening edema and shortness of breath. He has previously seen Dr. Mccartney. He was recently admitted a few weeks ago and found to have severe LV systolic dysfunction with EF of 15- 20%. Denies any prior history of heart failure. He reports that he has been having issues with swelling in his lower extremities for the past couple months. He does currently have his LifeVest on. He does report having a significant family history of heart disease however is unable to recall who had what. He is trying to cut back on smoking marijuana. His main complaint is scrotal swelling and constipation. This is very uncomfortable and is he is unable to perform his normal activities at home. Chest x-ray shows mild/moderate CHF, with enlarging moderate sized right pleural effusion. Labs reviewed: Hemoglobin 11.3, creatinine 2.26, potassium 4.4, BNP 52301. Echocardiogram 08/12/2023 with a EF 15-20%, moderate mitral regurgitation and tricuspid regurgitation. 09/07/23 ECHO with slight improvement of EF to 20-25%, moderate to severe mitral regurgitation. Creat stable at 2.27. He reports having increased stress from family issues and needed a xanax today. Otherwise he is doing ok. No chest pain. Shortness of breath stable. Slight improvement in edema. 09/08 No complaints of chest pain, shortness of breath is stable. Blood pressure 100/66, heart rate in the 80s, pulse ox 90% on room air. Patient is maintained on IV Lasix 80 mg every 8 hours. Weights do not appear to be accurate. Patient had a negative fluid balance yesterday of 560 mL. No repeat blood work for today. BMP ordered for tomorrow 09/09 Patient denies having any chest pain. No shortness of breath. Patient was tentatively scheduled for cardiac catheterization. Lab work this morning reveals BUN 39 creatinine 2.26 which appears to be patient's baseline, potassium 3.9. Heart rate 82, blood pressure 93/52, pulse ox 99% on room air. Yesterday, IV Lasix frequency was decreased to twice daily. 09/10 Patient's cardiac catheterization was delayed until today. Repeat lab work reveals BUN 41 creatinine 2.16. Patient denies any chest pain or short of breath. He has been continued on IV Lasix and the morning dose was held. PHYSICAL EXAMINATION: This is a 58-year-old male in no apparent distress at the time of my examination. HEENT: Head is atraumatic, normocephalic. Pupils are equal, round. Sclerae anicteric. Conjunctivae are clear. Mucous membranes of the mouth are moist. Neck is supple. There is no jugular venous distention. No carotid bruit is heard. CHEST EXAMINATION: Lungs are clear to auscultation. No chest wall tenderness is noted on palpation or with deep breathing. HEART EXAMINATION: Heart regular rate and rhythm. S1, S2 heard. No murmurs, gallops or rub. ABDOMEN: Soft, nontender. Bowel sounds are heard. EXTREMITIES: 2+ peripheral pulses with +1 BLE edema and no calf tenderness noted. NEUROLOGIC EXAMINATION: Patient is awake, alert and oriented x3. IMPRESSION AND PLAN: Acute systolic heart failure Cardiomyopathy of unclear etiology Acute kidney injury Diabetes type 2 Hyperlipidemia Hypertension Marijuana use Moderate right pleural effusion Moderate mitral regurgitation PLAN: Continue IV Lasix 80 mg twice daily to be resumed this evening Monitor SHARRON, daily weights, electrolytes and renal function Patient is scheduled for left heart cath and right heart cath today with Dr. Pardeep Cheung N.p.o. Further recommendations as patient progresses Nurse practitioner note has been reviewed, I agree with documented findings and plan of care. Patient was seen and examined. Objective - Vital Signs Vital signs: Vital Signs Temp 98.1 F 09/10/23 07:55 Pulse 52 L 09/10/23 07:55 Resp 15 09/10/23 07:55 BP 113/77 09/10/23 07:55 Pulse Ox 99 09/10/23 07:55 FiO2 Intake & Output 09/09/23 09/10/23 09/10/23 18:59 06:59 18:59 Intake Total 100 Output Total 100 400 250 Balance -100 -300 -250 Weight 113.4 kg Intake: Oral 100 Output: Urine 100 400 250 Stool 0 Other: Voiding Method Urinal Toilet Urinal # Voids 1 - Labs CBC & Chem 7: 09/07/23 07:37 09/10/23 07:08 Labs: Abnormal Lab Results - Last 24 Hours (Table) 09/07/23 09/10/23 Range/Units 07:37 07:08 BUN 41 H (9-20) mg/dL Creatinine 2.16 H (0.66-1.25) mg/dL Glucose 116 H (74-99) mg/dL Free [place] LC, Quant 5.86 H (0.33-1.94) mg/dL
[2023-09-10] MEDS: HEPARIN SODIUM 1,000 UN/ML (10ML VL) IV ONE (12:40)
[2023-09-10] MEDS: IOPAMIDOL-370 100ML BTL INJ ONE (13:02)
[2023-09-10] MEDS ORDERED: RX INFO: IV CONTRAST WAS GIVEN 1 EACH MISC MISCELLANE PRN (13:19)
[2023-09-10] MEDS: ISOSORBIDE MONONITRATE ER 30 MG TAB.ER.24H PO SCH (16:25)
[2023-09-10] MEDS: FUROSEMIDE 10 MG/ML 4 ML VIAL IV STA (16:25)
[2023-09-10] MEDS: SODIUM CHLORIDE 0.9% 500 ML 500 ML IV SCH (16:26)
[2023-09-10 16:30] LABS: Glucose,Whole Blood 126 mg/dL (70-110)
--- NOTE | 2023-09-10 18:50 | P.PN ---
Subjective 58-year-old male with significant past medical history diabetes type 2 since age 45, asthma, hypertension, hyperlipidemia and more recently acute systolic heart failure who presents for worsening edema and shortness of breath. He has previously seen Dr. Mccartney. He was recently admitted a few weeks ago and found to have severe LV systolic dysfunction with EF of 15-20%. Denies any prior history of heart failure. He reports that he has been having issues with swelling in his lower extremities for the past couple months. He does currently have his LifeVest on. He does report having a significant family history of heart disease however is unable to recall who had what. He is trying to cut back on smoking marijuana. His main complaint is scrotal swelling and constipation. This is very uncomfortable and is he is unable to perform his normal activities at home. --Chest x-ray shows mild/moderate CHF, with enlarging moderate sized right pleural effusion. --Labs reviewed: WBC of 3.3, hemoglobin 11.3, platelet count of 145, sodium 138, potassium 4.4, BUN of 34, creatinine 2.26, BNP 14987. -- Last echocardiogram 08/12/2023 with a EF 15-20%, moderate mitral regurgitation and tricuspid regurgitation. -- Cardiology recommending to continue Lasix to 80 mg 3 times daily. Monitor kidney function. Continue with LifeVest. Lambda and kappa light chains- PENDING. Will consider right heart cath on Friday to measure pressures, concern for possible end stage heart failure. We will follow. NPO after midnight. 09/08/2023 Patient sitting up in bed. Awake and oriented and breathing quietly on room air He has 2+ bilateral patellar like edema Compression from exertional dyspnea Remains on IV Solu-Medrol 80 mg twice daily today. Ejection fraction 20-25% with moderate to severe mitral regurgitation Plan for cardiac cath tomorrow morning. Creatinine is stable about 2.3 He has mild pancytopenia with B12 and folate level acceptable 09/09/2023 Patient breathing is stable. He is on room air. His with no shortness of breath at rest, no orthopnea Has minimal leg edema and minimal basilar crepitation He is on IV Lasix 80 mg twice daily with good urine output He is getting normal saline 50 mL/h per day because he is going for cardiac cath with cartilage team. This mild pancytopenia is stable 09/10/2023 Patient awake at baseline, no dyspnea Has significant bilateral leg swelling and anasarca Blood pressure is borderline but patient is as symptomatic as average urine output Normal saline 50 mL was used up today and resume his IV Lasix 80 mg twice daily Creatinine 2.1 Patient also underwent cardiac cath today He is placed on Coreg 3.125, Imdur 30 mg, aspirin 81 mg Also patient has mildly elevated I light chain with level more than 4 times the reference range before going to consult hematology team Objective - Vital Signs Vital signs: Vital Signs Temp 98.1 F 09/10/23 07:55 Pulse 88 09/10/23 11:54 Resp 16 09/10/23 08:00 BP 113/77 09/10/23 07:55 Pulse Ox 99 09/10/23 07:55 FiO2 Intake & Output 09/09/23 09/10/23 09/10/23 18:59 06:59 18:59 Intake Total 100 Output Total 100 400 500 Balance -100 -300 -500 Weight 113.4 kg Intake: Oral 100 Output: Urine 100 400 500 Uretheral (Reed) 250 Stool 0 Other: Voiding Method Urinal Toilet Toilet Urinal # Voids 1 - Exam GENERAL: The patient is alert and oriented x3, not in any acute distress. Well developed, well nourished. HEENT: Pupils are round and equally reacting to light. EOMI. No scleral icterus. No conjunctival pallor. Normocephalic, atraumatic. No pharyngeal erythema. No thyromegaly. CARDIOVASCULAR: S1 and S2 present. No murmurs, rubs, or gallops. PULMONARY: Chest is clear to auscultation, no wheezing , no crackles. ABDOMEN: Soft, nontender, nondistended, normoactive bowel sounds. No palpable organomegaly. MUSCULOSKELETAL: No joint swelling or deformity. -EXTREMITIES: No cyanosis, clubbing, bilateral pitting leg ma. NEUROLOGICAL: Gross neurological examination did not reveal any focal deficits. SKIN: No rashes. no petechiae. - Labs CBC & Chem 7: 09/07/23 07:37 09/10/23 07:08 Labs: Abnormal Lab Results - Last 24 Hours (Table) 09/07/23 09/10/23 Range/Units 07:37 07:08 BUN 41 H (9-20) mg/dL Creatinine 2.16 H (0.66-1.25) mg/dL Glucose 116 H (74-99) mg/dL Free [place] LC, Quant 5.86 H (0.33-1.94) mg/dL Assessment and Plan Assessment: Acute and chronic systolic congestive heart failure with ejection fraction 20- 25%, status post LifeVest Chronic kidney disease stage III with acute kidney injury secondary to cardiorenal syndrome Mild pancytopenia Elevated light kappa chain Hypertension Hyperlipidemia Diabetes mellitus BPH Plan: Continue with IV Lasix [place] plan for cardiac cath Cardiology and nephrology team consult consult hematology service for abnormal FO, high Labs and medication were reviewed.. Continue same treatment. Continue with symptomatic treatment. Resume home medication. Monitor labs and vitals. DVT and GI prophylaxis. Further recommendations as per clinical course of the patient DVT prophylaxis: Subcutaneous heparin GI Prophylaxis: Pepcid PT/OT: Pending Prognosis is guarded
[2023-09-10 20:07] LABS: Glucose,Whole Blood 96 mg/dL (70-110)
--- NOTE | 2023-09-10 23:43 | CC ---
CARDIAC CATHETERIZATION REPORT PROCEDURE: Right and left heart catheterization. INDICATIONS: Cardiomyopathy with systolic heart failure. PROCEDURE NOTE: After obtaining informed consent, left heart catheterization, coronary angiogram, and right heart catheterization were performed using right radial artery and right femoral vein. The patient tolerated the procedure well without any obvious immediate complications. He received moderate conscious sedation. Total sedation time was 40 minutes. The right radial artery access was obtained using Seldinger technique, 6- [place] sheath was placed. Catheters and wires were floated into the ascending aorta under fluoroscopic guidance. The patient received verapamil and heparin per protocol. Femoral venous access was obtained using modified Seldinger technique. A 6-[place] sheath was placed and right heart catheter was floated into the right ventricle under fluoroscopic guidance. The patient tolerated the procedure well without any obvious immediate complications. FINDINGS: 1. Hemodynamics: Left ventricular end-diastolic pressure is 25 mm, there is no gradient across the aortic valve. 2. Left Ventriculogram: Left ventriculogram is not performed. 3. Angiographic Data: a.Right Coronary Artery: Right coronary artery is totally occluded in the proximal portion with extensive collaterals from the left to the distal right. Left main coronary artery is calcified, but is free of significant stenosis. Divides into left anterior descending coronary artery and circumflex coronary artery. Circumflex coronary artery is diffusely diseased, shows a 70% to 80% stenosis involving the OM branch. There are collaterals to the distal RCA. LAD is diffusely diseased in the proximal mid and distal portions. CONCLUSIONS: Three-vessel coronary artery disease as described above with chronic total occlusion of the right coronary artery and 80% to 90% stenosis involving the circumflex coronary artery and diffuse disease involving LAD. PLAN: I am going to consider a Lexiscan on him down the road and has ischemia in the circumflex coronary artery distribution, consider angioplasty. Right heart catheterization. We could not bridge the catheter and could not obtain pulmonary capillary wedge pressure, however, the mean right atrial pressure is elevated at 28 mm, mean RV pressure is 34 mm with an RV systolic pressure of 56, end-diastolic pressure of 24 mm. CONCLUSIONS: 1. Three-vessel coronary artery disease with chronic occlusion of the right coronary artery and significant disease involving circumflex coronary artery and diffuse disease involving the LAD. 2. Evidence of elevated filling pressures with mean right atrial pressure of 28 mm and evidence of elevated RV systolic pressure. PLAN: Aggressive medical therapy for underlying CAD. Once the patient is clinically stable, a Lexiscan and if he has ischemia in the circumflex coronary artery, consider revascularization and continued diuretic therapy and INR draws if hemodynamically tolerated. The patient has chronic renal failure and understands the risk of contrast- induced nephropathy. MMODL / IJN: [id number] /
[2023-09-11 06:03] LABS: Glucose,Whole Blood 137 mg/dL (70-110)
[2023-09-11 09:56] LABS: African American GFR (CKD) 39 (>60 ml/min/1.73 sqM); Anion Gap 9 mmol/L; Blood Urea Nitrogen 41 mg/dL (9-20); Calcium 8.9 mg/dL (8.4-10.2); Carbon Dioxide 26 mmol/L (22-30); Chloride 102 mmol/L (98-107); Glucose 120 mg/dL (74-99); Non-African American GFR(CKD) 34 (>60 ml/min/1.73 sqM); Potassium 4.1 mmol/L (3.5-5.1); Sodium 137 mmol/L (137-145)
[2023-09-11] MEDS: ATORVASTATIN 40 MG TAB PO SCH (09:56)
[2023-09-11] MEDS: ASPIRIN 81 MG PO SCH (09:56)
[2023-09-11] MEDS: FUROSEMIDE 10 MG/ML 10 ML VIAL IV SCH (09:56)
--- NOTE | 2023-09-11 10:51 | P.PN ---
Subjective Patient is seen for follow-up for acute kidney injury. Admitted for fluid overload and CHF exacerbation. Ejection fraction 15 to 20%. Currently maintained on IV Lasix 80 mg every 12 hours. Status postcardiac catheterization on 09/10/2023 which showed three-vessel coronary artery disease with chronic occlusion and diffuse disease. Urine output charted at 1500 mL for 24 hours. Objective - Vital Signs Vital signs: Vital Signs Temp 97.5 F L 09/11/23 08:24 Pulse 85 09/11/23 09:42 Resp 18 09/11/23 09:42 BP 104/63 09/11/23 08:24 Pulse Ox 97 09/11/23 08:24 FiO2 Intake & Output 09/10/23 09/11/23 09/11/23 18:59 06:59 18:59 Intake Total 340 240 240 Output Total 950 500 Balance -610 -260 240 Weight 113 kg Intake: IV 100 Oral 240 240 240 Output: Urine 950 500 Uretheral (Reed) 250 Other: Voiding Method Toilet Indwelling Catheter Indwelling Catheter # Voids 1 - Exam Patient is awake, comfortable, no acute distress Alert oriented x 3 Examination of the heart S1 and S2 Examination of the lungs bilateral breath sounds are heard Abdomen is soft distended nontender obese Examination of lower extremities shows edema 3+ bilaterally with significant s crotal edema ELECTRICIAN YARD exam grossly intact - Labs CBC & Chem 7: 09/07/23 07:37 09/11/23 09:03 Labs: Abnormal Lab Results - Last 24 Hours (Table) 09/10/23 09/11/23 09/11/23 Range/Units 16:27 06:01 09:03 BUN 41 H (9-20) mg/dL Creatinine 2.11 H (0.66-1.25) mg/dL Glucose 120 H (74-99) mg/dL POC Glucose (mg/dL) 126 H 137 H (70-110) mg/dL Assessment and Plan Assessment: 1. Acute kidney injury, cardiorenal syndrome with stable renal function with serum creatinine staying around 2.2 mg/dL. No evidence of obstruction on ultrasound on 08/15/2023. UA shows 1+ protein otherwise benign. Status post cardiac catheterization on 09/10/2023 2. Volume overload 3. Acute on chronic systolic CHF 4. Cardiomyopathy with a EF of 15 to 20% 5. Type 2 diabetes maintained on Trulicity 6. BPH maintained on Flomax. 7. Chronic kidney disease stage 2 to 3 A with serum creatinine fluctuating between 1.3 and 1.5 mg/dL since fall 2022. Multiple episodes of acute kidney injury noted 8. Mildly elevated free kappa light chains, being followed by hematology Plan: Continue current dose of Lasix Add dobutamine. Discussed with cardiology. Repeat labs in a.m.
[2023-09-11 11:42] LABS: Glucose,Whole Blood 109 mg/dL (70-110)
--- NOTE | 2023-09-11 12:46 | P.PN ---
Subjective HISTORY OF PRESENT ILLNESS: Patient is a pleasant 58-year-old male with significant past medical history diabetes type 2 since age 45, asthma, hypertension, hyperlipidemia and more recently acute systolic heart failure who presents for worsening edema and shortness of breath. He has previously seen Dr. Mccartney. He was recently admitted a few weeks ago and found to have severe LV systolic dysfunction with EF of 15- 20%. Denies any prior history of heart failure. He reports that he has been having issues with swelling in his lower extremities for the past couple months. He does currently have his LifeVest on. He does report having a significant family history of heart disease however is unable to recall who had what. He is trying to cut back on smoking marijuana. His main complaint is scrotal swelling and constipation. This is very uncomfortable and is he is unable to perform his normal activities at home. Chest x-ray shows mild/moderate CHF, with enlarging moderate sized right pleural effusion. Labs reviewed: Hemoglobin 11.3, creatinine 2.26, potassium 4.4, BNP 01216. Echocardiogram 08/12/2023 with a EF 15-20%, moderate mitral regurgitation and tricuspid regurgitation. 09/07/23 ECHO with slight improvement of EF to 20-25%, moderate to severe mitral regurgitation. Creat stable at 2.27. He reports having increased stress from family issues and needed a xanax today. Otherwise he is doing ok. No chest pain. Shortness of breath stable. Slight improvement in edema. 09/08 No complaints of chest pain, shortness of breath is stable. Blood pressure 100/66, heart rate in the 80s, pulse ox 90% on room air. Patient is maintained on IV Lasix 80 mg every 8 hours. Weights do not appear to be accurate. Patient had a negative fluid balance yesterday of 560 mL. No repeat blood work for today. BMP ordered for tomorrow 09/09 Patient denies having any chest pain. No shortness of breath. Patient was tentatively scheduled for cardiac catheterization. Lab work this morning reveals BUN 39 creatinine 2.26 which appears to be patient's baseline, potassium 3.9. Heart rate 82, blood pressure 93/52, pulse ox 99% on room air. Yesterday, IV Lasix frequency was decreased to twice daily. 09/10 Patient's cardiac catheterization was delayed until today. Repeat lab work reveals BUN 41 creatinine 2.16. Patient denies any chest pain or short of breath. He has been continued on IV Lasix and the morning dose was held. 09/11/2023 Patient is s/p cardiac catherization with Dr. Cheung. Cath revealed three-vessel coronary artery disease with chronic occlusion of the right coronary artery and significant disease involving circumflex coronary arteries and diffuse disease involving the LAD. Patient denies chest pain or pressure. He reports mild SOB. He remains on IV lasix. Vital signs stable. PHYSICAL EXAM: VITAL SIGNS: Reviewed. GENERAL: Well-developed in no acute distress. NECK: Supple. No JVD or thyromegaly LUNGS: Respirations even and unlabored. Lungs diminished bilaterally. HEART: Regular rate and rhythm. S1 and S2 heard. + systolic murmur EXTREMITIES: Normal range of motion. No clubbing or cyanosis. Peripheral p ulses intact. 2+ bilateral lower extremity edema ASSESSMENT: Acute on chronic heart failure with reduced EF, 15-20% Ischemic cardiomyopathy Triple vessel coronary artery disease Chronic occlusion of RCA Acute kidney injury Diabetes type 2 Hyperlipidemia Hypertension Marijuana use Moderate right pleural effusion Moderate mitral regurgitation PLAN: Continue current cardiac medications Continue IV lasix 80mg q12 hours Add Dobutamine infusion at 5mcg/kg/min Daily weights, accurate I&O, and daily weights Will consider Lexiscan in the future when patient is clinically stable. If ischemia in circumflex region, would consider revascularization Further recommendations pending patient course Nurse practitioner note has been reviewed by physician. Signing provider agrees with the documented findings, assessment, and plan of care documented by [employer] as a scribe. Objective - Vital Signs Vital signs: Vital Signs Temp 97.5 F L 09/11/23 12:07 Pulse 87 09/11/23 12:07 Resp 18 09/11/23 12:07 BP 106/67 09/11/23 12:07 Pulse Ox 100 09/11/23 12:07 FiO2 Intake & Output 09/10/23 09/11/23 09/11/23 18:59 06:59 18:59 Intake Total 340 240 240 Output Total 950 500 Balance -610 -260 240 Weight 113 kg Intake: IV 100 Oral 240 240 240 Output: Urine 950 500 Uretheral (Reed) 250 Other: Voiding Method Toilet Indwelling Catheter Indwelling Catheter # Voids 1 - Labs CBC & Chem 7: 09/07/23 07:37 09/11/23 09:03 Labs: Abnormal Lab Results - Last 24 Hours (Table) 09/10/23 09/11/23 09/11/23 Range/Units 16:27 06:01 09:03 BUN 41 H (9-20) mg/dL Creatinine 2.11 H (0.66-1.25) mg/dL Glucose 120 H (74-99) mg/dL POC Glucose (mg/dL) 126 H 137 H (70-110) mg/dL
--- NOTE | 2023-09-11 13:40 | P.PN ---
Subjective 58-year-old male with significant past medical history diabetes type 2 since age 45, asthma, hypertension, hyperlipidemia and more recently acute systolic heart failure who presents for worsening edema and shortness of breath. He has previously seen Dr. Mccartney. He was recently admitted a few weeks ago and found to have severe LV systolic dysfunction with EF of 15-20%. Denies any prior history of heart failure. He reports that he has been having issues with swelling in his lower extremities for the past couple months. He does currently have his LifeVest on. He does report having a significant family history of heart disease however is unable to recall who had what. He is trying to cut back on smoking marijuana. His main complaint is scrotal swelling and constipation. This is very uncomfortable and is he is unable to perform his normal activities at home. --Chest x-ray shows mild/moderate CHF, with enlarging moderate sized right pleural effusion. --Labs reviewed: WBC of 3.3, hemoglobin 11.3, platelet count of 145, sodium 138, potassium 4.4, BUN of 34, creatinine 2.26, BNP 07372. -- Last echocardiogram 08/12/2023 with a EF 15-20%, moderate mitral regurgitation and tricuspid regurgitation. -- Cardiology recommending to continue Lasix to 80 mg 3 times daily. Monitor kidney function. Continue with LifeVest. Lambda and kappa light chains- PENDING. Will consider right heart cath on Friday to measure pressures, concern for possible end stage heart failure. We will follow. NPO after midnight. 09/08/2023 Patient sitting up in bed. Awake and oriented and breathing quietly on room air He has 2+ bilateral patellar like edema Compression from exertional dyspnea Remains on IV Solu-Medrol 80 mg twice daily today. Ejection fraction 20-25% with moderate to severe mitral regurgitation Plan for cardiac cath tomorrow morning. Creatinine is stable about 2.3 He has mild pancytopenia with B12 and folate level acceptable 09/09/2023 Patient breathing is stable. He is on room air. His with no shortness of breath at rest, no orthopnea Has minimal leg edema and minimal basilar crepitation He is on IV Lasix 80 mg twice daily with good urine output He is getting normal saline 50 mL/h per day because he is going for cardiac cath with cartilage team. This mild pancytopenia is stable 09/10/2023 Patient awake at baseline, no dyspnea Has significant bilateral leg swelling and anasarca Blood pressure is borderline but patient is as symptomatic as average urine output Normal saline 50 mL was used up today and resume his IV Lasix 80 mg twice daily Creatinine 2.1 Patient also underwent cardiac cath today He is placed on Coreg 3.125, Imdur 30 mg, aspirin 81 mg Also patient has mildly elevated I light chain with level more than 4 times the reference range before going to consult hematology team 09/11/2023 Patient awake alert, still with significant anasarca with no specific complaints He status post cardiac cath yesterday showing severe triple vessel coronary artery disease with chronically occluded right coronary arteries and significant disease involving the left circumflex and extensive disease of the LAD. Patient placed on aspirin 81 mg and Lipitor by cattle knocker and was started on dobutamine drip while he remains on IV Lasix 80 mg twice daily, creatinine 2.1 which is stable. Plan to repeat a Lexiscan stress test to see if he will require stents to left circumflex artery. Motility team also following the patient closely for mild pancytopenia and elevated light chain, bone survey and serology workup is ordered by hematology were R following closely Patient feels a little depressed and he says he was on Cymbalta 60 mg daily and he wanted back. No suicidal ideation Review of systems CONSTITUTIONAL: No fever, no malaise, no fatigue. HEENT: No recent visual problems or hearing problems. Denied any sore throat. CARDIOVASCULAR: No orthopnea, PND, no palpitations, no syncope. PULMONARY: No shortness of breath, no cough, no hemoptysis. GASTROINTESTINAL: No diarrhea, no nausea, no vomiting, no abdominal pain. Normoactive bowel sounds. Active Medications Generic Name Dose Route Start Last Admin Trade Name Freq PRN Reason Stop Dose Admin Albuterol Sulfate 2.5 mg 09/06/23 15:14 09/10/23 11:35 Albuterol Nebulized 2.5 Mg/3 Ml INHALATION 2.5 mg RT-Q6H PRN Administration Shortness Of Breath Alprazolam 0.25 mg 09/06/23 15:14 09/09/23 12:27 Alprazolam 0.25 Mg Tab PO 0.25 mg TID PRN Administration Anxiety Aspirin 81 mg 09/11/23 09:00 02/08/24 09:56 Aspirin 81 Mg PO 81 mg DAILY ROSE Administration Atorvastatin Calcium 40 mg 09/11/23 09:00 09/11/23 09:56 Atorvastatin 40 Mg Tab PO 40 mg DAILY ROSE Administration Carvedilol 3.125 mg 09/06/23 17:30 09/11/23 06:27 Carvedilol 3.125 Mg Tab PO 3.125 mg BID-W/MEALS ROSE Administration Duloxetine HCl 60 mg 09/11/23 13:45 Duloxetine Hcl 60 Mg Capsule.Dr PO DAILY ROSE Famotidine 20 mg 09/08/23 09:00 09/11/23 09:56 Famotidine 20 Mg/2 Ml Vial IV 20 mg DAILY ROSE Administration Furosemide 80 mg 09/11/23 08:00 09/11/23 09:56 Furosemide 10 Mg/Ml 10 Ml Vial IV 80 mg Q12H ROSE Administration Heparin Sodium (Porcine) 5,000 unit 09/08/23 09:00 09/11/23 09:56 Heparin Sodium,Porcine 5,000 Unit/Ml 1 Ml Vial SQ 5,000 unit Q12HR ROSE Administration Dobutamine HCl/Dextrose 500 mg 250 mls @ 16.95 mls/hr 09/11/23 11:15 / IV Solution IV .[id number] ROSE 5 MCG/KG/MIN Isosorbide Mononitrate 30 mg 09/10/23 13:30 09/11/23 09:56 Isosorbide Mononitrate Er 30 Mg Tab.Er.24h PO 30 mg DAILY ROSE Administration Midodrine 5 mg 09/06/23 15:14 Midodrine 5 Mg Tab PO AC-TID PRN SBP < 90 Miscellaneous Information 1 each 09/10/23 13:19 Rx Info: Iv Contrast Was Given 1 Each Misc MISCELLANE 09/12/23 13:20 DAILY PRN Per Protocol Nitroglycerin 0.4 mg 09/08/23 09:40 Nitroglycerin Sl Tabs 0.4 Mg Tab SUBLINGUAL Q5M PRN Chest Pain Polyethylene Glycol 17 gm 09/06/23 15:14 Polyethylene Glycol 3350 17 Gm Powd.Pack PO DAILY PRN Constipation Tamsulosin HCl 0.4 mg 09/06/23 15:15 09/11/23 09:56 Tamsulosin 0.4 Mg Cap.Er.24h PO 0.4 mg DAILY ROSE Administration Objective - Vital Signs Vital signs: Vital Signs Temp 97.5 F L 09/11/23 12:07 Pulse 87 09/11/23 12:07 Resp 18 09/11/23 12:07 BP 106/67 09/11/23 12:07 Pulse Ox 100 09/11/23 12:07 FiO2 Intake & Output 09/10/23 09/11/23 09/11/23 18:59 06:59 18:59 Intake Total 340 240 240 Output Total 950 500 Balance -610 -260 240 Weight 113 kg Intake: IV 100 Oral 240 240 240 Output: Urine 950 500 Uretheral (Reed) 250 Other: Voiding Method Toilet Indwelling Catheter Indwelling Catheter # Voids 1 - Exam GENERAL: The patient is alert and oriented x3, not in any acute distress. Well developed, well nourished. HEENT: Pupils are round and equally reacting to light. EOMI. No scleral icterus. No conjunctival pallor. Normocephalic, atraumatic. No pharyngeal erythema. No thyromegaly. CARDIOVASCULAR: S1 and S2 present. No murmurs, rubs, or gallops. PULMONARY: Chest is clear to auscultation, no wheezing , no crackles. ABDOMEN: Soft, nontender, nondistended, normoactive bowel sounds. No palpable organomegaly. MUSCULOSKELETAL: No joint swelling or deformity. -EXTREMITIES: No cyanosis, clubbing, bilateral pitting leg ma. NEUROLOGICAL: Gross neurological examination did not reveal any focal deficits. SKIN: No rashes. no petechiae. - Labs CBC & Chem 7: 09/07/23 07:37 09/11/23 09:03 Labs: Abnormal Lab Results - Last 24 Hours (Table) 09/10/23 09/11/23 09/11/23 Range/Units 16:27 06:01 09:03 BUN 41 H (9-20) mg/dL Creatinine 2.11 H (0.66-1.25) mg/dL Glucose 120 H (74-99) mg/dL POC Glucose (mg/dL) 126 H 137 H (70-110) mg/dL Assessment and Plan Assessment: Acute and chronic systolic congestive heart failure with ejection fraction 20- 25%, status post LifeVest ischemic cardiomyopathy with cardiac cath showed severe triple-vessel coronary artery disease Chronic kidney disease stage III with acute kidney injury secondary to cardiorenal syndrome Mild pancytopenia, Elevated light kappa chain Hypertension Hyperlipidemia Diabetes mellitus BPH Plan: Continue with IV Lasix 80 mg twice daily Started on dobutamine drip by cattle knocker with plan for Lexiscan stress test in the future to assess for need for PCI to left circumflex artery Cardiology and nephrology team consult Monitor creatinine consult hematology service for abnormal kappa chain Labs and medication were reviewed.. Continue same treatment. Continue with symptomatic treatment. Resume home medication. Monitor labs and vitals. DVT and GI prophylaxis. Further recommendations as per clinical course of the patient DVT prophylaxis: Subcutaneous heparin GI Prophylaxis: Pepcid PT/OT: Pending Prognosis is guarded
[2023-09-11] MEDS: DOBUTamine DRIP 500 MG in DEXTROSE/WATER 1 250ML.BAG IV SCH (14:02)
[2023-09-11 16:51] LABS: Albumin 3.7 g/dL (3.8-4.9); Protein, Total 6.4 g/dL (6.2-8.2)
[2023-09-11 16:53] LABS: Glucose,Whole Blood 120 mg/dL (70-110)
[2023-09-11 17:18] LABS: Immunoglobulin A <65.0 mg/dL (60.0-350.0)
[2023-09-11] MEDS: DULoxetine HCL 60 MG CAPSULE.DR PO SCH (17:38)
[2023-09-11 21:01] LABS: Glucose,Whole Blood 108 mg/dL (70-110)
[2023-09-11] MEDS: ONDANSETRON 4 MG/2 ML VIAL IVP PRN (21:43)
[2023-09-12 06:12] LABS: Glucose,Whole Blood 92 mg/dL (70-110)
--- NOTE | 2023-09-12 07:53 | P.PN ---
Subjective 58-year-old male with significant past medical history diabetes type 2 since age 45, asthma, hypertension, hyperlipidemia and more recently acute systolic heart failure who presents for worsening edema and shortness of breath. He has previously seen Dr. Mccartney. He was recently admitted a few weeks ago and found to have severe LV systolic dysfunction with EF of 15-20%. Denies any prior history of heart failure. He reports that he has been having issues with swelling in his lower extremities for the past couple months. He does currently have his LifeVest on. He does report having a significant family history of heart disease however is unable to recall who had what. He is trying to cut back on smoking marijuana. His main complaint is scrotal swelling and constipation. This is very uncomfortable and is he is unable to perform his normal activities at home. --Chest x-ray shows mild/moderate CHF, with enlarging moderate sized right pleural effusion. --Labs reviewed: WBC of 3.3, hemoglobin 11.3, platelet count of 145, sodium 138, potassium 4.4, BUN of 34, creatinine 2.26, BNP 99524. -- Last echocardiogram 08/12/2023 with a EF 15-20%, moderate mitral regurgitation and tricuspid regurgitation. -- Cardiology recommending to continue Lasix to 80 mg 3 times daily. Monitor kidney function. Continue with LifeVest. Lambda and kappa light chains- PENDING. Will consider right heart cath on Friday to measure pressures, concern for possible end stage heart failure. We will follow. NPO after midnight. 09/08/2023 Patient sitting up in bed. Awake and oriented and breathing quietly on room air He has 2+ bilateral patellar like edema Compression from exertional dyspnea Remains on IV Solu-Medrol 80 mg twice daily today. Ejection fraction 20-25% with moderate to severe mitral regurgitation Plan for cardiac cath tomorrow morning. Creatinine is stable about 2.3 He has mild pancytopenia with B12 and folate level acceptable 09/09/2023 Patient breathing is stable. He is on room air. His with no shortness of breath at rest, no orthopnea Has minimal leg edema and minimal basilar crepitation He is on IV Lasix 80 mg twice daily with good urine output He is getting normal saline 50 mL/h per day because he is going for cardiac cath with cartilage team. This mild pancytopenia is stable 09/10/2023 Patient awake at baseline, no dyspnea Has significant bilateral leg swelling and anasarca Blood pressure is borderline but patient is as symptomatic as average urine output Normal saline 50 mL was used up today and resume his IV Lasix 80 mg twice daily Creatinine 2.1 Patient also underwent cardiac cath today He is placed on Coreg 3.125, Imdur 30 mg, aspirin 81 mg Also patient has mildly elevated I light chain with level more than 4 times the reference range before going to consult hematology team 09/11/2023 Patient awake alert, still with significant anasarca with no specific complaints He status post cardiac cath yesterday showing severe triple vessel coronary artery disease with chronically occluded right coronary arteries and significant disease involving the left circumflex and extensive disease of the LAD. Patient placed on aspirin 81 mg and Lipitor by optical coating technician and was started on dobutamine drip while he remains on IV Lasix 80 mg twice daily, creatinine 2.1 which is stable. Plan to repeat a Lexiscan stress test to see if he will require stents to left circumflex artery. Motility team also following the patient closely for mild pancytopenia and elevated light chain, bone survey and serology workup is ordered by hematology were R following closely Patient feels a little depressed and he says he was on Cymbalta 60 mg daily and he wanted back. No suicidal ideation 09/12/2023 No chest pain, no dyspnea Awake and alert at baseline Reed catheter and the place. Currently he is receiving dobutamine drip at 5 g per KG per minutes Also has an IV Lasix 80 mg twice daily He is on aspirin 81 mg Lipitor and Coreg Cardiac cath done yesterday showing severe triple vessel coronary artery disease and he might require Lexiscan stress test to check for reversible ischemia and need for stents or no. [employer] team on the case with workup undergoing for hyperproteinemia with elevated I light chain. X-ray bone survey is pending as well as serologic workup Objective - Vital Signs Vital signs: Vital Signs Temp 97.5 F L 09/12/23 07:27 Pulse 81 09/12/23 07:27 Resp 19 09/12/23 07:27 BP 96/65 09/12/23 07:27 Pulse Ox 97 09/12/23 07:27 FiO2 Intake & Output 09/11/23 09/12/23 09/12/23 18:59 06:59 18:59 Intake Total 240 222.328 Output Total 800 1125 Balance -535 -976.789 Weight 70 kg 113 kg Intake: Intake, IV Titration 222.328 Amount DOBUTamine DRIP 500 mg In 222.328 Dextrose/Water 1 250ml. bag @ 5 MCG/KG/MIN 16.95 mls/hr IV .[id number] ROSE Rx #:[id number] Oral 240 Output: Urine 800 1125 Other: Voiding Method Indwelling Catheter Indwelling Catheter - Exam GENERAL: The patient is alert and oriented x3, not in any acute distress. Well developed, well nourished. HEENT: Pupils are round and equally reacting to light. EOMI. No scleral icterus. No conjunctival pallor. Normocephalic, atraumatic. No pharyngeal erythema. No thyromegaly. CARDIOVASCULAR: S1 and S2 present. No murmurs, rubs, or gallops. PULMONARY: Chest is clear to auscultation, no wheezing , no crackles. ABDOMEN: Soft, nontender, nondistended, normoactive bowel sounds. No palpable organomegaly. MUSCULOSKELETAL: No joint swelling or deformity. -EXTREMITIES: No cyanosis, clubbing, bilateral pitting leg ma. NEUROLOGICAL: Gross neurological examination did not reveal any focal deficits. SKIN: No rashes. no petechiae. - Labs CBC & Chem 7: 09/07/23 07:37 09/11/23 09:03 Labs: Abnormal Lab Results - Last 24 Hours (Table) 09/11/23 09/11/23 09/11/23 Range/Units 09:03 09:03 16:51 BUN 41 H (9-20) mg/dL Creatinine 2.11 H (0.66-1.25) mg/dL Glucose 120 H (74-99) mg/dL POC Glucose (mg/dL) 120 H (70-110) mg/dL Albumin (PEP) 3.7 L (3.8-4.9) g/dL [id number] 7.00 H (0.61-2.37) mg/L IgA <65.0 L (60.0-350.0) mg/dL Assessment and Plan Assessment: Acute and chronic systolic congestive heart failure with ejection fraction 20- 25%, status post LifeVest ischemic cardiomyopathy with cardiac cath showed severe triple-vessel coronary artery disease Chronic kidney disease stage III with acute kidney injury secondary to cardiorenal syndrome Mild pancytopenia, Elevated light kappa chain Hypertension Hyperlipidemia Diabetes mellitus BPH Plan: Continue with IV Lasix 80 mg twice daily Started on dobutamine drip by optical coating technician with plan for Lexiscan stress test in the future to assess for need for PCI to left circumflex artery Cardiology and nephrology team consult Monitor creatinine consult hematology service for abnormal kappa chain, pending further workup Labs and medication were reviewed.. Continue same treatment. Continue with symptomatic treatment. Resume home medication. Monitor labs and vitals. DVT and GI prophylaxis. Further recommendations as per clinical course of the patient DVT prophylaxis: Subcutaneous heparin GI Prophylaxis: Pepcid PT/OT: Pending Prognosis is guarded
[2023-09-12 08:48] LABS: African American GFR (CKD) 39 (>60 ml/min/1.73 sqM); Anion Gap 7 mmol/L; Blood Urea Nitrogen 40 mg/dL (9-20); Calcium 8.7 mg/dL (8.4-10.2); Carbon Dioxide 27 mmol/L (22-30); Chloride 102 mmol/L (98-107); Glucose 84 mg/dL (74-99); Non-African American GFR(CKD) 34 (>60 ml/min/1.73 sqM); Potassium 3.8 mmol/L (3.5-5.1); Sodium 136 mmol/L (137-145)
--- NOTE | 2023-09-12 09:00 | P.CONS ---
History of Present Illness - Reason for Consult Consult date: 09/11/23 elevated kappa LC Requesting physician: Jovani E Sheet - Chief Complaint SOB - History of Present Illness Patient is a 58-year-old male with significant medical history of diabetes, asthma, hypertension, hyperlipidemia, and heart failure. Consult was placed for evaluation of elevated lyndsay light chain. He presented to the hospital for worsening edema and shortness of breath. He was recently admitted and found to have severe LV systolic dysfunction with EF of 15-20%. Denies any known bloods disorders. Denies rectal bleeding and melena. Reports last colonoscopy was gr eater than 5 years ago. Upon trending labs there has been anemia noted since 02/2023, but no prior labs for comparison. CBC reviewed, with mild pancytopenia present, hemoglobin 11.1, WBC 3.1, and plts 127,000, differential showing only midl lymphopenia. Creatinine 2.26, GFR 33. BNP 60272. [place] LC 5.86, lambda LC 1.51, with ratio at 3.88. Iron studies from 08/18/22 showed, iron saturation 6.5%, ferritin 91. Vitamin b12 760, folate 9.0. 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 Past Anesthesia/Blood Transfusion Reactions: No Reported Reaction Past Psychological History: Depression Smoking Status: Vaper Past Alcohol Use History: None Reported, Occasional Past Drug Use History: Marijuana Medications and Allergies Home Medications Medication Instructions Recorded Confirmed Type Dulaglutide [Trulicity] 1.5 mg SQ FR 02/19/23 09/06/23 History Simvastatin [Zocor] 20 mg PO DAILY 02/19/23 09/06/23 History Albuterol Sulfate [Albuterol 2 puff PO RT-Q6H PRN 08/11/23 09/06/23 History Sulfate Hfa] Tamsulosin HCl [Flomax] 0.4 mg PO DAILY 08/11/23 09/06/23 History ALPRAZolam [Xanax] 0.25 mg PO TID PRN #6 tab 08/21/23 09/06/23 Rx Midodrine [ProAmatine] 5 mg PO AC-TID PRN #60 tab 08/21/23 09/06/23 Rx Nystatin 100,000 Unit/gm Powd 1 applic TOPICAL BID #1 each 08/21/23 09/06/23 Rx [Mycostatin Powder] carvediloL [Coreg] 3.125 mg PO BID-W/MEALS 30 Days 08/21/23 09/06/23 Rx #60 tab polyethylene glycoL 3350 [Miralax] 17 gm PO DAILY PRN packet 08/21/23 09/06/23 Rx Bumetanide [BUMEX] 1 mg PO DIRECTED 09/06/23 09/06/23 History Allergies Allergy/AdvReac Type Severity Reaction Status Date / Time Penicillins Allergy Rash/Hives Verified 09/06/23 12:51 Sulfa (Sulfonamide Allergy Rash/Hives Verified 09/06/23 12:51 Antibiotics) indomethacin AdvReac Unknown Verified 09/06/23 12:51 potassium chloride AdvReac Unknown Verified 09/06/23 12:51 Physical Exam Vitals: Vital Signs Temp Pulse Resp BP BP Pulse Ox 09/11/23 09:42 85 18 09/11/23 08:24 97.5 F L 85 18 104/63 97 09/11/23 04:00 92 18 111/80 96 09/11/23 00:00 85 18 96/67 99 09/10/23 20:17 98.0 F 85 18 104/69 99 09/10/23 19:00 83 09/10/23 17:05 85 17 101/71 97 09/10/23 16:30 97.9 F 83 16 98/69 09/10/23 16:05 88 17 102/65 98 09/10/23 15:05 98.2 F 85 17 99/63 09/10/23 14:35 67 16 113/78 97 09/10/23 14:05 81 16 111/72 98 09/10/23 13:50 83 16 113/78 98 09/10/23 13:35 86 16 117/58 98 09/10/23 13:31 81 16 119/56 98 Intake and Output 09/10/23 09/11/23 09/11/23 22:59 06:59 14:59 Intake Total 240 240 Output Total 200 500 Balance 40 -500 240 Intake: Oral 240 240 Output: Urine 200 500 Other: Voiding Method Indwelling Catheter Indwelling Catheter Indwelling Catheter Weight 113 kg - Constitutional General appearance: average body habitus, no acute distress - EENT Eyes: anicteric sclerae, EOMI ENT: hearing grossly normal - Neck Neck: no lymphadenopathy - Respiratory Respiratory: bilateral: CTA - Cardiovascular Rhythm: regular Heart sounds: normal: S1, S2 - Gastrointestinal General gastrointestinal: no soft, no tenderness - Integumentary Integumentary: no cyanotic, no jaundiced - Neurologic grossly intact - Musculoskeletal Musculoskeletal: strength equal bilaterally - Psychiatric Psychiatric: A&O x's 3 Results CBC & Chem 7: 09/07/23 07:37 09/12/23 07:23 Labs: Abnormal Lab Results - Last 24 Hours (Table) 09/10/23 09/11/23 09/11/23 Range/Units 16:27 06:01 09:03 BUN 41 H (9-20) mg/dL Creatinine 2.11 H (0.66-1.25) mg/dL Glucose 120 H (74-99) mg/dL POC Glucose (mg/dL) 126 H 137 H (70-110) mg/dL Chest x-ray: report reviewed Assessment and Plan (1) Pancytopenia Current Visit: Yes Status: Acute Priority: Medium Code(s): D61.818 - OTHER PANCYTOPENIA SNOMED Code(s): 406867952 (2) CHF (congestive heart failure) Current Visit: Yes Status: Acute Priority: High Code(s): I50.9 - HEART FAILURE, UNSPECIFIED SNOMED Code(s): 76522655 (3) Acute kidney injury Current Visit: Yes Status: Acute Priority: High Code(s): N17.9 - ACUTE KID KRISTIN FAILURE, UNSPECIFIED SNOMED Code(s): 05825751 Plan: CHF: -Recently diagnosed heart failur. CXR showing vascular congestion, BNP 40394 -Defer to cardiology for management DONELL: -Creatinine 2.26, GFR 33. -Thought to be r/t cardiorenal syndrome. Nephrology following Pancytopenia, elevated [place] LC: - Upon trending labs there has been anemia noted since 02/2023, but no prior labs for comparison. CBC reviewed, with mild pancytopenia present, hemoglobin 11.1, WBC 3.1, and plts 127,000, differential showing only mild lymphopenia. [place] LC 5.86, lambda LC 1.51, with ratio at 3.88. Iron studies from 08/18/22 showed, iron saturation 6.5%, ferritin 91. Vitamin b12 760, folate 9.0. Denies rectal bleeding and melena. Reports last colonoscopy was greater than 5 years ago. -Panctopenia likely reactive and r/t liver and splenic congestion r/t CHF. Likely, incidental finding of elevated kappa LC, will order pancytopenia workup to r/o underlying bone marrow etiology. Will also obtain beta 2 microglobulin, ESR, and bone survey -Recommend outpt GI f/u for endoscopic evaluation -Will provide further recommendations pending workup attests: I have seen and examined patient, performed H&P, developed impression and plan of care. Discussed with dictator. Agree with documentation, dictated as a scrib
--- NOTE | 2023-09-12 10:56 | P.PN ---
Subjective Patient is seen for follow-up for acute kidney injury. Admitted for fluid overload and CHF exacerbation. Ejection fraction 15 to 20%. Currently maintained on IV Lasix 80 mg every 12 hours. Status postcardiac catheterization on 09/10/2023 which showed three-vessel coronary artery disease with chronic occlusion and diffuse disease. Urine output charted at 1925 mL for 24 hours. Started on dobutamine yesterday. Objective - Vital Signs Vital signs: Vital Signs Temp 97.5 F L 09/12/23 07:27 Pulse 81 09/12/23 09:53 Resp 19 09/12/23 09:53 BP 96/65 09/12/23 07:27 Pulse Ox 97 09/12/23 07:27 FiO2 Intake & Output 09/11/23 09/12/23 09/12/23 18:59 06:59 18:59 Intake Total 240 222.328 Output Total 800 1125 0 Balance -560 -902.672 0 Weight 70 kg 113 kg Intake: Intake, IV Titration 222.328 Amount DOBUTamine DRIP 500 mg In 222.328 Dextrose/Water 1 250ml. 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 Acute kidney injury, cardiorenal syndrome with stable renal function with serum creatinine staying around 2.2 mg/dL. No evidence of obstruction on ultrasound on 08/15/2023. UA shows 1+ protein otherwise benign. Status post cardiac catheterization on 09/10/2023. Started dobutamine on 09/11/2023 2. Volume overload, slowly improving 3. Acute on chronic systolic CHF 4. Cardiomyopathy with a EF of 15 to 20% 5. Type 2 diabetes maintained on Trulicity 6. BPH maintained on Flomax. 7. Chronic kidney disease stage 2 to 3 A with serum creatinine fluctuating between 1.3 and 1.5 mg/dL since fall 2022. Multiple episodes of acute kidney injury noted 8. Mildly elevated free kappa light chains, being followed by hematology Plan: Continue current dose of Lasix Continue dobutamine Add Zaroxolyn Repeat labs in a.m.
[2023-09-12 11:35] LABS: Glucose,Whole Blood 90 mg/dL (70-110)
[2023-09-12] MEDS: metOLazone 5 MG TAB PO SCH (11:43)
--- NOTE | 2023-09-12 12:16 | P.PN ---
Subjective HISTORY OF PRESENT ILLNESS: Patient is a pleasant 58-year-old male with significant past medical history diabetes type 2 since age 45, asthma, hypertension, hyperlipidemia and more recently acute systolic heart failure who presents for worsening edema and shortness of breath. He has previously seen Dr. Mccartney. He was recently admitted a few weeks ago and found to have severe LV systolic dysfunction with EF of 15- 20%. Denies any prior history of heart failure. He reports that he has been having issues with swelling in his lower extremities for the past couple months. He does currently have his LifeVest on. He does report having a significant family history of heart disease however is unable to recall who had what. He is trying to cut back on smoking marijuana. His main complaint is scrotal swelling and constipation. This is very uncomfortable and is he is unable to perform his normal activities at home. Chest x-ray shows mild/moderate CHF, with enlarging moderate sized right pleural effusion. Labs reviewed: Hemoglobin 11.3, creatinine 2.26, potassium 4.4, BNP 67863. Echocardiogram 08/12/2023 with a EF 15-20%, moderate mitral regurgitation and tricuspid regurgitation. 09/07/23 ECHO with slight improvement of EF to 20-25%, moderate to severe mitral regurgitation. Creat stable at 2.27. He reports having increased stress from family issues and needed a xanax today. Otherwise he is doing ok. No chest pain. Shortness of breath stable. Slight improvement in edema. 09/08 No complaints of chest pain, shortness of breath is stable. Blood pressure 100/66, heart rate in the 80s, pulse ox 90% on room air. Patient is maintained on IV Lasix 80 mg every 8 hours. Weights do not appear to be accurate. Patient had a negative fluid balance yesterday of 560 mL. No repeat blood work for today. BMP ordered for tomorrow 09/09 Patient denies having any chest pain. No shortness of breath. Patient was tentatively scheduled for cardiac catheterization. Lab work this morning reveals BUN 39 creatinine 2.26 which appears to be patient's baseline, potassium 3.9. Heart rate 82, blood pressure 93/52, pulse ox 99% on room air. Yesterday, IV Lasix frequency was decreased to twice daily. 09/10 Patient's cardiac catheterization was delayed until today. Repeat lab work reveals BUN 41 creatinine 2.16. Patient denies any chest pain or short of breath. He has been continued on IV Lasix and the morning dose was held. 09/11/2023 Patient is s/p cardiac catherization with Dr. Cheung. Cath revealed three-vessel coronary artery disease with chronic occlusion of the right coronary artery and significant disease involving circumflex coronary arteries and diffuse disease involving the LAD. Patient denies chest pain or pressure. He reports mild SOB. He remains on IV lasix. Vital signs stable. 09/12/2023 Patient examined this morning at the bedside. Patient denies chest pain or pressure. He currently denies shortness of breath. He is laying flat in bed and appears comfortable. He remains on IV diuresis. Patient was also started on dobutamine yesterday. Urine output for the last 24 hours is 1925 cc. PHYSICAL EXAM: VITAL SIGNS: Reviewed. GENERAL: Well-developed in no acute distress. NECK: Supple. No JVD or thyromegaly LUNGS: Respirations even and unlabored. Lungs diminished bilaterally. HEART: Regular rate and rhythm. S1 and S2 heard. + systolic murmur EXTREMITIES: Normal range of motion. No clubbing or cyanosis. Peripheral pulses intact. 2+ bilateral lower extremity edema ASSESSMENT: Acute on chronic heart failure with reduced EF, 15-20% Ischemic cardiomyopathy Triple vessel coronary artery disease Chronic occlusion of RCA Acute kidney injury Diabetes type 2 Hyperlipidemia Hypertension Marijuana use Moderate right pleural effusion Moderate mitral regurgitation PLAN: Continue current cardiac medications Continue IV lasix 80mg q12 hours Add Dobutamine infusion at 5mcg/kg/min Daily weights, accurate I&O, and daily weights Will consider Lexiscan in the future when patient is clinically stable. If ischemia in circumflex region, would consider revascularization Further recommendations pending patient course Nurse practitioner note has been reviewed by physician. Signing provider agrees with the documented findings, assessment, and plan of care documented by HI LIFT OPERATOR as a scribe. Objective - Vital Signs Vital signs: Vital Signs Temp 96.8 F L 09/12/23 11:23 Pulse 78 09/12/23 11:23 Resp 16 09/12/23 11:23 BP 98/55 09/12/23 11:23 Pulse Ox 100 09/12/23 11:23 FiO2 Intake & Output 09/11/23 09/12/23 09/12/23 18:59 06:59 18:59 Intake Total 240 222.328 Output Total 800 1125 0 Balance -560 -902.672 0 Weight 70 kg 113 kg Intake: Intake, IV Titration 222.328 Amount DOBUTamine DRIP 500 mg In 222.328 Dextrose/Water 1 250ml. bag @ 5 MCG/KG/MIN 16.95 mls/hr IV .[id number] [facility] Rx #:[id number] Oral 240 Output: Urine 800 1125 Stool 0 Other: Voiding Method Indwelling Catheter Indwelling Catheter Indwelling Catheter - Labs CBC & Chem 7: 09/07/23 07:37 09/12/23 07:23 Labs: Abnormal Lab Results - Last 24 Hours (Table) 09/11/23 09/11/23 09/12/23 Range/Units 09:03 16:51 07:23 Sodium 136 L (137-145) mmol/L BUN 40 H (9-20) mg/dL Creatinine 2.10 H (0.66-1.25) mg/dL POC Glucose (mg/dL) 120 H (70-110) mg/dL Albumin (PEP) 3.7 L (3.8-4.9) g/dL Lhqq-0-Qzhofsxatgeir 7.00 H (0.61-2.37) mg/L IgA <65.0 L (60.0-350.0) mg/dL
[2023-09-12 16:38] LABS: Glucose,Whole Blood 83 mg/dL (70-110)
[2023-09-12] MEDS: POTASSIUM CHLORIDE ER 20 MEQ TAB.ER PO STA (17:28)
[2023-09-12 20:15] LABS: Glucose,Whole Blood 102 mg/dL (70-110)
[2023-09-12 20:48] LABS: Gamma Globulin 1.29 g/dL (0.70-1.50)
[2023-09-13 06:25] LABS: Glucose,Whole Blood 113 mg/dL (70-110)
--- NOTE | 2023-09-13 11:00 | P.PN ---
Subjective Patient is seen for follow-up for acute kidney injury. Admitted for fluid overload and CHF exacerbation. Ejection fraction 15 to 20%. Currently maintained on IV Lasix 80 mg every 12 hours. Status postcardiac catheterization on 09/10/2023 which showed three-vessel coronary artery disease with chronic occlusion and diffuse disease. Urine output charted at 1925 mL for 24 hours. 24 hour urine output only at 2.1 L. Weight has decreased by about 2 kg Started on dobutamine on 09/11/2023 Objective - Vital Signs Vital signs: Vital Signs Temp 98.1 F 09/13/23 08:32 Pulse 87 09/13/23 08:32 Resp 18 09/13/23 08:32 BP 90/58 09/13/23 08:32 Pulse Ox 95 09/13/23 08:32 FiO2 Intake & Output 09/12/23 09/13/23 09/13/23 18:59 06:59 18:59 Intake Total 242.668 227.695 130 Output Total 800 1350 Balance -557.332 -1122.305 130 Weight 111.1 kg Intake: IV 10 Invasive Line 2 10 Intake, IV Titration 242.668 227.695 Amount DOBUTamine DRIP 500 mg In 242.668 227.695 Dextrose/Water 1 250ml. 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 Acute kidney injury, cardiorenal syndrome with stable renal function with serum creatinine staying around 2.2 mg/dL. No evidence of obstruction on ultrasound on 08/15/2023. UA shows 1+ protein otherwise benign. Status post cardiac catheterization on 09/10/2023. Started dobutamine on 09/11/2023 2. Volume overload, slowly improving 3. Acute on chronic systolic CHF 4. Cardiomyopathy with a EF of 15 to 20% 5. Type 2 diabetes maintained on Trulicity 6. BPH maintained on Flomax. 7. Chronic kidney disease stage 2 to 3 A with serum creatinine fluctuating between 1.3 and 1.5 mg/dL since fall 2022. Multiple episodes of acute kidney injury noted 8. Mildly elevated free kappa light chains, being followed by hematology Plan: Continue current dose of Lasix Continue dobutamine Continue Zaroxolyn Change midodrine to scheduled dose Repeat labs in a.m.
[2023-09-13 11:09] LABS: African American GFR (CKD) 39 (>60 ml/min/1.73 sqM); Anion Gap 5 mmol/L; Blood Urea Nitrogen 39 mg/dL (9-20); Calcium 8.8 mg/dL (8.4-10.2); Carbon Dioxide 32 mmol/L (22-30); Chloride 98 mmol/L (98-107); Glucose 122 mg/dL (74-99); Non-African American GFR(CKD) 34 (>60 ml/min/1.73 sqM); Potassium 3.3 mmol/L (3.5-5.1); Sodium 135 mmol/L (137-145)
[2023-09-13 11:11] LABS: Anisocytosis Slight; Basophils % (A) 0 %; Eosinophils # (A) 0.1 k/uL (0-0.7); Eosinophils % (A) 3 %; HCT 32.2 % (39.0-53.0); HGB 10.1 gm/dL (13.0-17.5); Hypochromasia Slight; Lymphocytes # (A) 0.5 k/uL (1.0-4.8); Lymphocytes % (A) 17 %; MCH 26.7 pg (25.0-35.0); MCHC 31.3 g/dL (31.0-37.0); MCV 85.3 fL (80.0-100.0); Mean Platelet Volume 8.1; Monocytes # (A) 0.2 k/uL (0-1.0); Monocytes % (A) 6 %; Neutrophils # (A) 2.2 k/uL (1.3-7.7); Neutrophils % (A) 70 %; Platelet Count 104 k/uL (150-450); RBC 3.78 m/uL (4.30-5.90); RDW 16.3 % (11.5-15.5); WBC 3.1 k/uL (3.8-10.6)
[2023-09-13] MEDS ORDERED: Potassium Replacement Protocol 1 EACH MISC MISCELLANE PRN (11:32)
[2023-09-13 11:52] LABS: Glucose,Whole Blood 108 mg/dL (70-110)
[2023-09-13] MEDS: POTASSIUM CHLORIDE ER 20 MEQ TAB.ER PO SCH (12:03)
[2023-09-13] MEDS: MIDODRINE 5 MG TAB PO SCH (12:03)
[2023-09-13] MEDS: polyethylene glycoL 3350 17 GM POWD.PACK PO PRN (12:04)
--- NOTE | 2023-09-13 14:33 | P.PN ---
Subjective HISTORY OF PRESENT ILLNESS: Patient is a pleasant 58-year-old male with significant past medical history diabetes type 2 since age 45, asthma, hypertension, hyperlipidemia and more recently acute systolic heart failure who presents for worsening edema and shortness of breath. He has previously seen Dr. Mccartney. He was recently admitted a few weeks ago and found to have severe LV systolic dysfunction with EF of 15- 20%. Denies any prior history of heart failure. He reports that he has been having issues with swelling in his lower extremities for the past couple months. He does currently have his LifeVest on. He does report having a significant family history of heart disease however is unable to recall who had what. He is trying to cut back on smoking marijuana. His main complaint is scrotal swelling and constipation. This is very uncomfortable and is he is unable to perform his normal activities at home. Chest x-ray shows mild/moderate CHF, with enlarging moderate sized right pleural effusion. Labs reviewed: Hemoglobin 11.3, creatinine 2.26, potassium 4.4, BNP 92276. Echocardiogram 08/12/2023 with a EF 15-20%, moderate mitral regurgitation and tricuspid regurgitation. 09/07/23 ECHO with slight improvement of EF to 20-25%, moderate to severe mitral regurgitation. Creat stable at 2.27. He reports having increased stress from family issues and needed a xanax today. Otherwise he is doing ok. No chest pain. Shortness of breath stable. Slight improvement in edema. 09/08 No complaints of chest pain, shortness of breath is stable. Blood pressure 100/66, heart rate in the 80s, pulse ox 90% on room air. Patient is maintained on IV Lasix 80 mg every 8 hours. Weights do not appear to be accurate. Patient had a negative fluid balance yesterday of 560 mL. No repeat blood work for today. BMP ordered for tomorrow 09/09 Patient denies having any chest pain. No shortness of breath. Patient was tentatively scheduled for cardiac catheterization. Lab work this morning reveals BUN 39 creatinine 2.26 which appears to be patient's baseline, potassium 3.9. Heart rate 82, blood pressure 93/52, pulse ox 99% on room air. Yesterday, IV Lasix frequency was decreased to twice daily. 09/10 Patient's cardiac catheterization was delayed until today. Repeat lab work reveals BUN 41 creatinine 2.16. Patient denies any chest pain or short of breath. He has been continued on IV Lasix and the morning dose was held. 09/11/2023 Patient is s/p cardiac catherization with Dr. Cheung. Cath revealed three-vessel coronary artery disease with chronic occlusion of the right coronary artery and significant disease involving circumflex coronary arteries and diffuse disease involving the LAD. Patient denies chest pain or pressure. He reports mild SOB. He remains on IV lasix. Vital signs stable. 09/12/2023 Patient examined this morning at the bedside. Patient denies chest pain or pressure. He currently denies shortness of breath. He is laying flat in bed and appears comfortable. He remains on IV diuresis. Patient was also started on dobutamine yesterday. Urine output for the last 24 hours is 1925 cc. 09/13/2023 Patient seen and examined sitting up in bed. Maintained on dobutamine infusion and IV Lasix. Laboratory data reviewed, hemoglobin 10.1, platelets 104, potassium 3.3, creatinine 2.1 and magnesium 1.8. He is maintaining a negative fluid balance for the previous 24 hours and weight is down 2 kg. Blood pressure 108/70 heart rate 85. PHYSICAL EXAM: VITAL SIGNS: Reviewed. GENERAL: Well-developed in no acute distress. NECK: Supple. No JVD or thyromegaly LUNGS: Respirations even and unlabored. Lungs diminished bilaterally. HEART: Regular rate and rhythm. S1 and S2 heard. + systolic murmur EXTREMITIES: Normal range of motion. No clubbing or cyanosis. Peripheral pulses intact. 2+ bilateral lower extremity edema ASSESSMENT: Acute on chronic heart failure with reduced EF, 15-20% Ischemic cardiomyopathy Triple vessel coronary artery disease Chronic occlusion of RCA Acute kidney injury Diabetes type 2 Hyperlipidemia Hypertension Marijuana use Moderate right pleural effusion Moderate mitral regurgitation PLAN: Continue current cardiac medications BMP in the morning. Daily weights, accurate I&O, and daily weights Will consider Lexiscan in the future when patient is clinically stable. If isch emia in circumflex region, would consider revascularization. May benefit from evaluation at a tertiary care center, can be initiated as an outpatient Further recommendations pending patient course Nurse practitioner note has been reviewed by physician. Signing provider agrees with the documented findings, assessment, and plan of care documented by LEGAL BILLING COORDINATOR as a scribe. Objective - Vital Signs Vital signs: Vital Signs Temp 98.1 F 09/13/23 08:32 Pulse 87 09/13/23 08:32 Resp 18 09/13/23 08:32 BP 90/58 09/13/23 08:32 Pulse Ox 95 09/13/23 08:32 FiO2 Intake & Output 09/12/23 09/13/23 09/13/23 18:59 06:59 18:59 Intake Total 242.668 227.695 130 Output Total 800 1350 Balance -557.332 -1122.305 130 Weight 111.1 kg Intake: IV 10 Invasive Line 2 10 Intake, IV Titration 242.668 227.695 Amount DOBUTamine DRIP 500 mg In 242.668 227.695 Dextrose/Water 1 250ml. bag @ 5 MCG/KG/MIN 16.95 mls/hr IV .[id number] [facility] Rx #:[id number] Oral 120 Output: Urine 800 1350 Stool 0 Other: Voiding Method Indwelling Catheter Indwelling Catheter - Labs CBC & Chem 7: 09/13/23 10:14 09/13/23 10:14 Labs: Abnormal Lab Results - Last 24 Hours (Table) 09/11/23 09/13/23 Range/Units 09:03 06:24 POC Glucose (mg/dL) 113 H (70-110) mg/dL Yaadl-7-Whilltpuf 0.42 H (0.10-0.40) g/dL Beta Globulins 0.46 L (0.60-1.30) g/dL
[2023-09-13 16:43] LABS: Glucose,Whole Blood 99 mg/dL (70-110)
--- NOTE | 2023-09-13 17:46 | P.PN ---
Subjective 58-year-old male with significant past medical history diabetes type 2 since age 45, asthma, hypertension, hyperlipidemia and more recently acute systolic heart failure who presents for worsening edema and shortness of breath. He has previously seen Dr. Mccartney. He was recently admitted a few weeks ago and found to have severe LV systolic dysfunction with EF of 15-20%. Denies any prior history of heart failure. He reports that he has been having issues with swelling in his lower extremities for the past couple months. He does currently have his LifeVest on. He does report having a significant family history of heart disease however is unable to recall who had what. He is trying to cut back on smoking marijuana. His main complaint is scrotal swelling and constipation. This is very uncomfortable and is he is unable to perform his normal activities at home. --Chest x-ray shows mild/moderate CHF, with enlarging moderate sized right pleural effusion. --Labs reviewed: WBC of 3.3, hemoglobin 11.3, platelet count of 145, sodium 138, potassium 4.4, BUN of 34, creatinine 2.26, BNP 83469. -- Last echocardiogram 08/12/2023 with a EF 15-20%, moderate mitral regurgitation and tricuspid regurgitation. -- Cardiology recommending to continue Lasix to 80 mg 3 times daily. Monitor kidney function. Continue with LifeVest. Lambda and kappa light chains- PENDING. Will consider right heart cath on Friday to measure pressures, concern for possible end stage heart failure. We will follow. NPO after midnight. 09/08/2023 Patient sitting up in bed. Awake and oriented and breathing quietly on room air He has 2+ bilateral patellar like edema Compression from exertional dyspnea Remains on IV Solu-Medrol 80 mg twice daily today. Ejection fraction 20-25% with moderate to severe mitral regurgitation Plan for cardiac cath tomorrow morning. Creatinine is stable about 2.3 He has mild pancytopenia with B12 and folate level acceptable 09/09/2023 Patient breathing is stable. He is on room air. His with no shortness of breath at rest, no orthopnea Has minimal leg edema and minimal basilar crepitation He is on IV Lasix 80 mg twice daily with good urine output He is getting normal saline 50 mL/h per day because he is going for cardiac cath with cartilage team. This mild pancytopenia is stable 09/10/2023 Patient awake at baseline, no dyspnea Has significant bilateral leg swelling and anasarca Blood pressure is borderline but patient is as symptomatic as average urine output Normal saline 50 mL was used up today and resume his IV Lasix 80 mg twice daily Creatinine 2.1 Patient also underwent cardiac cath today He is placed on Coreg 3.125, Imdur 30 mg, aspirin 81 mg Also patient has mildly elevated I light chain with level more than 4 times the reference range before going to consult hematology team 09/11/2023 Patient awake alert, still with significant anasarca with no specific complaints He status post cardiac cath yesterday showing severe triple vessel coronary artery disease with chronically occluded right coronary arteries and significant disease involving the left circumflex and extensive disease of the LAD. Patient placed on aspirin 81 mg and Lipitor by elementary principal and was started on dobutamine drip while he remains on IV Lasix 80 mg twice daily, creatinine 2.1 which is stable. Plan to repeat a Lexiscan stress test to see if he will require stents to left circumflex artery. Motility team also following the patient closely for mild pancytopenia and elevated light chain, bone survey and serology workup is ordered by hematology were R following closely Patient feels a little depressed and he says he was on Cymbalta 60 mg daily and he wanted back. No suicidal ideation 09/12/2023 No chest pain, no dyspnea Awake and alert at baseline Reed catheter and the place. Currently he is receiving dobutamine drip at 5 g per KG per minutes Also has an IV Lasix 80 mg twice daily He is on aspirin 81 mg Lipitor and Coreg Cardiac cath done yesterday showing severe triple vessel coronary artery disease and he might require Lexiscan stress test to check for reversible ischemia and need for stents or no. [employer] team on the case with workup undergoing for hyperproteinemia with elevated I light chain. X-ray bone survey is pending as well as serologic workup 09/13/2023 Patient is a stain in bed, mild tachypnea but severe anasarca He remains on dobutamine drip, IV diuretics Lasix and metolazone Also he is on midodrine scheduled dose starting today Low potassium replaced. Creatinine stable at 2.1 Objective - Vital Signs Vital signs: Vital Signs Temp 98.0 F 09/13/23 11:49 Pulse 85 02/10/24 11:49 Resp 18 09/13/23 11:49 BP 108/70 09/13/23 11:49 Pulse Ox 96 09/13/23 11:49 FiO2 Intake & Output 09/12/23 09/13/23 09/13/23 18:59 06:59 18:59 Intake Total 242.668 227.695 130 Output Total 800 1350 Balance -557.332 -1122.305 130 Weight 111.1 kg Intake: IV 10 Invasive Line 2 10 Intake, IV Titration 242.668 227.695 Amount DOBUTamine DRIP 500 mg In 242.668 227.695 Dextrose/Water 1 250ml. bag @ 5 MCG/KG/MIN 16.95 mls/hr IV .[id number] [facility] Rx #:[id number] Oral 120 Output: Urine 800 1350 Stool 0 Other: Voiding Method Indwelling Catheter Indwelling Catheter Indwelling Catheter - Exam GENERAL: The patient is alert and oriented x3, not in any acute distress. Well developed, well nourished. HEENT: Pupils are round and equally reacting to light. EOMI. No scleral icterus. No conjunctival pallor. Normocephalic, atraumatic. No pharyngeal erythema. No thyromegaly. CARDIOVASCULAR: S1 and S2 present. No murmurs, rubs, or gallops. PULMONARY: Chest is clear to auscultation, no wheezing , no crackles. ABDOMEN: Soft, nontender, nondistended, normoactive bowel sounds. No palpable organomegaly. MUSCULOSKELETAL: No joint swelling or deformity. -EXTREMITIES: No cyanosis, clubbing, bilateral pitting leg ma. NEUROLOGICAL: Gross neurological examination did not reveal any focal deficits. SKIN: No rashes. no petechiae. - Labs CBC & Chem 7: 09/13/23 10:14 09/13/23 10:14 Labs: Abnormal Lab Results - Last 24 Hours (Table) 09/11/23 09/13/23 09/13/23 Range/Units 09:03 06:24 10:14 WBC 3.1 L (3.8-10.6) k/uL RBC 3.78 L (4.30-5.90) m/uL Hgb 10.1 L (13.0-17.5) gm/dL Hct 32.2 L (39.0-53.0) % RDW 16.3 H (11.5-15.5) % Plt Count 104 L (150-450) k/uL Lymphocytes # 0.5 L (1.0-4.8) k/uL Sodium (137-145) mmol/L Potassium (3.5-5.1) mmol/L Carbon Dioxide (22-30) mmol/L BUN (9-20) mg/dL Creatinine (0.66-1.25) mg/dL Glucose (74-99) mg/dL POC Glucose (mg/dL) 113 H (70-110) mg/dL Iotce-6-Cnxagqglm 0.42 H (0.10-0.40) g/dL Beta Globulins 0.46 L (0.60-1.30) g/dL 09/13/23 Range/Units 10:14 WBC (3.8-10.6) k/uL RBC (4.30-5.90) m/uL Hgb (13.0-17.5) gm/dL Hct (39.0-53.0) % RDW (11.5-15.5) % Plt Count (150-450) k/uL Lymphocytes # (1.0-4.8) k/uL Sodium 135 L (137-145) mmol/L Potassium 3.3 L (3.5-5.1) mmol/L Carbon Dioxide 32 H (22-30) mmol/L BUN 39 H (9-20) mg/dL Creatinine 2.12 H (0.66-1.25) mg/dL Glucose 122 H (74-99) mg/dL POC Glucose (mg/dL) (70-110) mg/dL Umuvl-6-Xsyzbrbsv (0.10-0.40) g/dL Beta Globulins (0.60-1.30) g/dL Assessment and Plan Assessment: Acute and chronic systolic congestive heart failure with ejection fraction 20- 25%, status post LifeVest ischemic cardiomyopathy with cardiac cath showed severe triple-vessel coronary artery disease Chronic kidney disease stage III with acute kidney injury secondary to cardiorenal syndrome Mild pancytopenia, Elevated light kappa chain Hypertension Hyperlipidemia Diabetes mellitus BPH Plan: Continue with IV Lasix 80 mg twice daily Started on dobutamine drip by elementary principal with plan for Lexiscan stress test in the future to assess for need for PCI to left circumflex artery Cardiology and nephrology team consult Monitor creatinine consult hematology service for abnormal kappa chain, pending further workup Labs and medication were reviewed.. Continue same treatment. Continue with symptomatic treatment. Resume home medication. Monitor labs and vitals. DVT and GI prophylaxis. Further recommendations as per clinical course of the patient DVT prophylaxis: Subcutaneous heparin GI Prophylaxis: Pepcid PT/OT: Pending Prognosis is guarded
[2023-09-13 20:11] LABS: Glucose,Whole Blood 117 mg/dL (70-110)
[2023-09-14 06:08] LABS: Glucose,Whole Blood 106 mg/dL (70-110)
[2023-09-14 09:31] LABS: African American GFR (CKD) 41 (>60 ml/min/1.73 sqM); Anion Gap 7 mmol/L; Blood Urea Nitrogen 41 mg/dL (9-20); Calcium 9.1 mg/dL (8.4-10.2); Carbon Dioxide 31 mmol/L (22-30); Chloride 96 mmol/L (98-107); Glucose 92 mg/dL (74-99); Non-African American GFR(CKD) 35 (>60 ml/min/1.73 sqM); Potassium 3.3 mmol/L (3.5-5.1); Sodium 134 mmol/L (137-145)
[2023-09-14] MEDS: POTASSIUM CHLORIDE ER 20 MEQ TAB.ER PO STA (11:21)
--- NOTE | 2023-09-14 11:31 | P.PN ---
Subjective Patient is seen for follow-up for acute kidney injury. Admitted for fluid overload and CHF exacerbation. Ejection fraction 15 to 20%. Currently maintained on IV Lasix 80 mg every 12 hours. Status postcardiac catheterization on 09/10/2023 which showed three-vessel coronary artery disease with chronic occlusion and diffuse disease. Urine output increased to 3.2 L for 24 hours. Started on dobutamine on 09/11/2023. Added Zaroxolyn on 09/13/2023 Objective - Vital Signs Vital signs: Vital Signs Temp 97.8 F 09/14/23 11:25 Pulse 82 09/14/23 11:25 Resp 18 09/14/23 11:25 BP 104/68 09/14/23 11:25 Pulse Ox 96 09/14/23 11:25 FiO2 Intake & Output 09/13/23 09/14/23 09/14/23 18:59 06:59 18:59 Intake Total 488 241.82 358.407 Output Total 1300 1900 Balance -812 -1658.18 358.407 Weight 108.9 kg Intake: IV 10 Invasive Line 2 10 Intake, IV Titration 241.82 240.407 Amount DOBUTamine DRIP 500 mg In 241.82 240.407 Dextrose/Water 1 250ml. bag @ 5 MCG/KG/MIN 16.95 mls/hr IV .[id number] [facility] Rx #:[id number] Oral 478 118 Output: Urine 1300 1900 Other: Voiding Method Indwelling Catheter Indwelling Catheter Indwelling Catheter - Exam Patient is awake, comfortable, no acute distress Alert oriented x 3 Examination of the heart S1 and S2 Examination of the lungs bilateral breath sounds are heard Abdomen is soft distended nontender obese Examination of lower extremities shows edema 3+ bilaterally with significant s crotal edema [employer] exam grossly intact - Labs CBC & Chem 7: 09/13/23 10:14 09/14/23 08:46 Labs: Abnormal Lab Results - Last 24 Hours (Table) 09/13/23 09/14/23 Range/Units 20:09 08:46 Sodium 134 L (137-145) mmol/L Potassium 3.3 L (3.5-5.1) mmol/L Chloride 96 L (98-107) mmol/L Carbon Dioxide 31 H (22-30) mmol/L BUN 41 H (9-20) mg/dL Creatinine 2.04 H (0.66-1.25) mg/dL POC Glucose (mg/dL) 117 H (70-110) mg/dL Assessment and Plan Assessment: 1. Acute kidney injury, cardiorenal syndrome with stable renal function with serum creatinine staying around 2.2 mg/dL. No evidence of obstruction on ultrasound on 08/15/2023. UA shows 1+ protein otherwise benign. Status post cardiac catheterization on 09/10/2023. Started dobutamine on 09/11/2023 2. Volume overload, slowly improving 3. Acute on chronic systolic CHF 4. Cardiomyopathy with a EF of 15 to 20% 5. Type 2 diabetes maintained on Trulicity 6. BPH maintained on Flomax. 7. Chronic kidney disease stage 2 to 3 A with serum creatinine fluctuating between 1.3 and 1.5 mg/dL since fall 2022. Multiple episodes of acute kidney injury noted 8. Mildly elevated free kappa light chains, being followed by hematology 9. Hypokalemia secondary to diuresis Plan: Increase Lasix to every 8 hours Replace potassium Continue dobutamine Continue Zaroxolyn Change midodrine to scheduled dose Repeat labs in a.m.
[2023-09-14 11:50] LABS: Glucose,Whole Blood 94 mg/dL (70-110)
--- NOTE | 2023-09-14 13:10 | P.PN ---
Subjective HISTORY OF PRESENT ILLNESS: Patient is a pleasant 58-year-old male with significant past medical history diabetes type 2 since age 45, asthma, hypertension, hyperlipidemia and more recently acute systolic heart failure who presents for worsening edema and shortness of breath. He has previously seen Dr. Mccartney. He was recently admitted a few weeks ago and found to have severe LV systolic dysfunction with EF of 15- 20%. Denies any prior history of heart failure. He reports that he has been having issues with swelling in his lower extremities for the past couple months. He does currently have his LifeVest on. He does report having a significant family history of heart disease however is unable to recall who had what. He is trying to cut back on smoking marijuana. His main complaint is scrotal swelling and constipation. This is very uncomfortable and is he is unable to perform his normal activities at home. Chest x-ray shows mild/moderate CHF, with enlarging moderate sized right pleural effusion. Labs reviewed: Hemoglobin 11.3, creatinine 2.26, potassium 4.4, BNP 88972. Echocardiogram 08/12/2023 with a EF 15-20%, moderate mitral regurgitation and tricuspid regurgitation. 09/07/23 ECHO with slight improvement of EF to 20-25%, moderate to severe mitral regurgitation. Creat stable at 2.27. He reports having increased stress from family issues and needed a xanax today. Otherwise he is doing ok. No chest pain. Shortness of breath stable. Slight improvement in edema. 09/08 No complaints of chest pain, shortness of breath is stable. Blood pressure 100/66, heart rate in the 80s, pulse ox 90% on room air. Patient is maintained on IV Lasix 80 mg every 8 hours. Weights do not appear to be accurate. Patient had a negative fluid balance yesterday of 560 mL. No repeat blood work for today. BMP ordered for tomorrow 09/09 Patient denies having any chest pain. No shortness of breath. Patient was tentatively scheduled for cardiac catheterization. Lab work this morning reveals BUN 39 creatinine 2.26 which appears to be patient's baseline, potassium 3.9. Heart rate 82, blood pressure 93/52, pulse ox 99% on room air. Yesterday, IV Lasix frequency was decreased to twice daily. 09/10 Patient's cardiac catheterization was delayed until today. Repeat lab work reveals BUN 41 creatinine 2.16. Patient denies any chest pain or short of breath. He has been continued on IV Lasix and the morning dose was held. 09/11/2023 Patient is s/p cardiac catherization with Dr. Cheung. Cath revealed three-vessel coronary artery disease with chronic occlusion of the right coronary artery and significant disease involving circumflex coronary arteries and diffuse disease involving the LAD. Patient denies chest pain or pressure. He reports mild SOB. He remains on IV lasix. Vital signs stable. 09/12/2023 Patient examined this morning at the bedside. Patient denies chest pain or pressure. He currently denies shortness of breath. He is laying flat in bed and appears comfortable. He remains on IV diuresis. Patient was also started on dobutamine yesterday. Urine output for the last 24 hours is 1925 cc. 09/13/2023 Patient seen and examined sitting up in bed. Maintained on dobutamine infusion and IV Lasix. Laboratory data reviewed, hemoglobin 10.1, platelets 104, potassium 3.3, creatinine 2.1 and magnesium 1.8. He is maintaining a negative fluid balance for the previous 24 hours and weight is down 2 kg. Blood pressure 108/70 heart rate 85. 09/14/2023 Seen laying flat in bed. He ate breakfast. He is diuresing well on current regimen with 3.2 L out in 24 hours and weight down 3 kg. Blood pressure stable. Potassium low today, will replace and creatinine stable at 2.04. PHYSICAL EXAM: VITAL SIGNS: Reviewed. GENERAL: Well-developed in no acute distress. NECK: Supple. No JVD or thyromegaly LUNGS: Respirations even and unlabored. Lungs diminished bilaterally. HEART: Regular rate and rhythm. S1 and S2 heard. + systolic murmur EXTREMITIES: Normal range of motion. No clubbing or cyanosis. Peripheral pulse s intact. 2+ bilateral lower extremity edema ASSESSMENT: Acute on chronic heart failure with reduced EF, 15-20% Ischemic cardiomyopathy Triple vessel coronary artery disease Chronic occlusion of RCA Acute kidney injury Diabetes type 2 Hyperlipidemia Hypertension Marijuana use Moderate right pleural effusion Moderate mitral regurgitation PLAN: Continue current cardiac medications BMP in the morning. Daily weights, accurate I&O, and daily weights Will consider Lexiscan in the future when patient is clinically stable. If ischemia in circumflex region, would consider revascularization. May benefit from evaluation at a tertiary care center, can be initiated as an outpatient Further recommendations pending patient course Nurse practitioner note has been reviewed by physician. Signing provider agrees with the documented findings, assessment, and plan of care documented by [employer] as a scribe. Objective - Vital Signs Vital signs: Vital Signs Temp 97.8 F 09/14/23 09:34 Pulse 87 09/14/23 09:34 Resp 18 09/14/23 09:34 BP 115/75 09/14/23 09:34 Pulse Ox 97 09/14/23 09:34 FiO2 Intake & Output 09/13/23 09/14/23 09/14/23 18:59 06:59 18:59 Intake Total 488 241.82 118 Output Total 1300 1900 Balance -812 -1658.18 118 Weight 108.9 kg Intake: IV 10 Invasive Line 2 10 Intake, IV Titration 241.82 Amount DOBUTamine DRIP 500 mg In 241.82 Dextrose/Water 1 250ml. bag @ 5 MCG/KG/MIN 16.95 mls/hr IV .[id number] [facility] Rx #:[id number] Oral 478 118 Output: Urine 1300 1900 Other: Voiding Method Indwelling Catheter Indwelling Catheter Indwelling Catheter - Labs CBC & Chem 7: 09/13/23 10:14 09/14/23 08:46 Labs: Abnormal Lab Results - Last 24 Hours (Table) 09/13/23 09/13/23 09/13/23 Range/Units 10:14 10:14 20:09 WBC 3.1 L (3.8-10.6) k/uL RBC 3.78 L (4.30-5.90) m/uL Hgb 10.1 L (13.0-17.5) gm/dL Hct 32.2 L (39.0-53.0) % RDW 16.3 H (11.5-15.5) % Plt Count 104 L (150-450) k/uL Lymphocytes # 0.5 L (1.0-4.8) k/uL Sodium 135 L (137-145) mmol/L Potassium 3.3 L (3.5-5.1) mmol/L Chloride (98-107) mmol/L Carbon Dioxide 32 H (22-30) mmol/L BUN 39 H (9-20) mg/dL Creatinine 2.12 H (0.66-1.25) mg/dL Glucose 122 H (74-99) mg/dL POC Glucose (mg/dL) 117 H (70-110) mg/dL 09/14/23 Range/Units 08:46 WBC (3.8-10.6) k/uL RBC (4.30-5.90) m/uL Hgb (13.0-17.5) gm/dL Hct (39.0-53.0) % RDW (11.5-15.5) % Plt Count (150-450) k/uL Lymphocytes # (1.0-4.8) k/uL Sodium 134 L (137-145) mmol/L Potassium 3.3 L (3.5-5.1) mmol/L Chloride 96 L (98-107) mmol/L Carbon Dioxide 31 H (22-30) mmol/L BUN 41 H (9-20) mg/dL Creatinine 2.04 H (0.66-1.25) mg/dL Glucose (74-99) mg/dL POC Glucose (mg/dL) (70-110) mg/dL
--- NOTE | 2023-09-14 15:11 | P.PN ---
Subjective 58-year-old male with significant past medical history diabetes type 2 since age 45, asthma, hypertension, hyperlipidemia and more recently acute systolic heart failure who presents for worsening edema and shortness of breath. He has previously seen Dr. Mccartney. He was recently admitted a few weeks ago and found to have severe LV systolic dysfunction with EF of 15-20%. Denies any prior history of heart failure. He reports that he has been having issues with swelling in his lower extremities for the past couple months. He does currently have his LifeVest on. He does report having a significant family history of heart disease however is unable to recall who had what. He is trying to cut back on smoking marijuana. His main complaint is scrotal swelling and constipation. This is very uncomfortable and is he is unable to perform his normal activities at home. --Chest x-ray shows mild/moderate CHF, with enlarging moderate sized right pleural effusion. --Labs reviewed: WBC of 3.3, hemoglobin 11.3, platelet count of 145, sodium 138, potassium 4.4, BUN of 34, creatinine 2.26, BNP 96812. -- Last echocardiogram 08/12/2023 with a EF 15-20%, moderate mitral regurgitation and tricuspid regurgitation. -- Cardiology recommending to continue Lasix to 80 mg 3 times daily. Monitor kidney function. Continue with LifeVest. Lambda and kappa light chains- PENDING. Will consider right heart cath on Friday to measure pressures, concern for possible end stage heart failure. We will follow. NPO after midnight. 09/08/2023 Patient sitting up in bed. Awake and oriented and breathing quietly on room air He has 2+ bilateral patellar like edema Compression from exertional dyspnea Remains on IV Solu-Medrol 80 mg twice daily today. Ejection fraction 20-25% with moderate to severe mitral regurgitation Plan for cardiac cath tomorrow morning. Creatinine is stable about 2.3 He has mild pancytopenia with B12 and folate level acceptable 09/09/2023 Patient breathing is stable. He is on room air. His with no shortness of breath at rest, no orthopnea Has minimal leg edema and minimal basilar crepitation He is on IV Lasix 80 mg twice daily with good urine output He is getting normal saline 50 mL/h per day because he is going for cardiac cath with cartilage team. This mild pancytopenia is stable 09/10/2023 Patient awake at baseline, no dyspnea Has significant bilateral leg swelling and anasarca Blood pressure is borderline but patient is as symptomatic as average urine output Normal saline 50 mL was used up today and resume his IV Lasix 80 mg twice daily Creatinine 2.1 Patient also underwent cardiac cath today He is placed on Coreg 3.125, Imdur 30 mg, aspirin 81 mg Also patient has mildly elevated I light chain with level more than 4 times the reference range before going to consult hematology team 09/11/2023 Patient awake alert, still with significant anasarca with no specific complaints He status post cardiac cath yesterday showing severe triple vessel coronary artery disease with chronically occluded right coronary arteries and significant disease involving the left circumflex and extensive disease of the LAD. Patient placed on aspirin 81 mg and Lipitor by restaurant hourly manager and was started on dobutamine drip while he remains on IV Lasix 80 mg twice daily, creatinine 2.1 which is stable. Plan to repeat a Lexiscan stress test to see if he will require stents to left circumflex artery. Motility team also following the patient closely for mild pancytopenia and elevated light chain, bone survey and serology workup is ordered by hematology were R following closely Patient feels a little depressed and he says he was on Cymbalta 60 mg daily and he wanted back. No suicidal ideation 09/12/2023 No chest pain, no dyspnea Awake and alert at baseline Reed catheter and the place. Currently he is receiving dobutamine drip at 5 g per KG per minutes Also has an IV Lasix 80 mg twice daily He is on aspirin 81 mg Lipitor and Coreg Cardiac cath done yesterday showing severe triple vessel coronary artery disease and he might require Lexiscan stress test to check for reversible ischemia and need for stents or no. Professor [employer] team on the case with workup undergoing for hyperproteinemia with elevated I light chain. X-ray bone survey is pending as well as serologic workup 09/13/2023 Patient is a stain in bed, mild tachypnea but severe anasarca He remains on dobutamine drip, IV diuretics Lasix and metolazone Also he is on midodrine scheduled dose starting today Low potassium replaced. Creatinine stable at 2.1 09/14/2023 Patient is making good urine outpatient and he looks like he lost some weight Patient continued on IV Lasix and dose increased to 80 mg 3 times a day He remains on dobutamine Patient was counseled about fluid restriction and he agrees He still has constipation and lactulose 30 mg twice daily was added today Objective - Vital Signs Vital signs: Vital Signs Temp 97.8 F 09/14/23 11:25 Pulse 82 09/14/23 11:25 Resp 18 09/14/23 11:25 BP 104/68 09/14/23 11:25 Pulse Ox 96 09/14/23 11:25 FiO2 Intake & Output 09/13/23 09/14/23 09/14/23 18:59 06:59 18:59 Intake Total 488 241.82 358.407 Output Total 1300 1900 1250 Balance -812 -1658.18 -891.593 Weight 108.9 kg Intake: IV 10 Invasive Line 2 10 Intake, IV Titration 241.82 240.407 Amount DOBUTamine DRIP 500 mg In 241.82 240.407 Dextrose/Water 1 250ml. bag @ 5 MCG/KG/MIN 16.95 mls/hr IV .[id number] [facility] Rx #:[id number] Oral 478 118 Output: Urine 1300 1900 1250 Other: Voiding Method Indwelling Catheter Indwelling Catheter Indwelling Catheter - Exam GENERAL: The patient is alert and oriented x3, not in any acute distress. Well developed, well nourished. HEENT: Pupils are round and equally reacting to light. EOMI. No scleral icterus. No conjunctival pallor. Normocephalic, atraumatic. No pharyngeal erythema. No thyromegaly. CARDIOVASCULAR: S1 and S2 present. No murmurs, rubs, or gallops. PULMONARY: Chest is clear to auscultation, no wheezing , no crackles. ABDOMEN: Soft, nontender, nondistended, normoactive bowel sounds. No palpable organomegaly. MUSCULOSKELETAL: No joint swelling or deformity. -EXTREMITIES: No cyanosis, clubbing, bilateral pitting leg ma. NEUROLOGICAL: Gross neurological examination did not reveal any focal deficits. SKIN: No rashes. no petechiae. - Labs CBC & Chem 7: 09/13/23 10:14 09/14/23 08:46 Labs: Abnormal Lab Results - Last 24 Hours (Table) 09/13/23 09/14/23 Range/Units 20:09 08:46 Sodium 134 L (137-145) mmol/L Potassium 3.3 L (3.5-5.1) mmol/L Chloride 96 L (98-107) mmol/L Carbon Dioxide 31 H (22-30) mmol/L BUN 41 H (9-20) mg/dL Creatinine 2.04 H (0.66-1.25) mg/dL POC Glucose (mg/dL) 117 H (70-110) mg/dL Assessment and Plan Assessment: Acute and chronic systolic congestive heart failure with ejection fraction 20- 25%, status post LifeVest ischemic cardiomyopathy with cardiac cath showed severe triple-vessel coronary artery disease Chronic kidney disease stage III with acute kidney injury secondary to cardiorenal syndrome Mild pancytopenia, Elevated light kappa chain Hypertension Hyperlipidemia Diabetes mellitus BPH Plan: Continue with IV Lasix 80 mg twice daily Started on dobutamine drip by restaurant hourly manager with plan for Lexiscan stress test in the future to assess for need for PCI to left circumflex artery Cardiology and nephrology team consult Monitor creatinine consult hematology service for abnormal kappa chain, pending further workup Labs and medication were reviewed.. Continue same treatment. Continue with symptomatic treatment. Resume home medication. Monitor labs and vitals. DVT and GI prophylaxis. Further recommendations as per clinical course of the patient DVT prophylaxis: Subcutaneous heparin GI Prophylaxis: Pepcid PT/OT: Pending Prognosis is guarded
[2023-09-14] MEDS: FUROSEMIDE 10 MG/ML 10 ML VIAL IV SCH (16:11)
[2023-09-14 16:28] LABS: Glucose,Whole Blood 127 mg/dL (70-110)
[2023-09-14 20:43] LABS: Glucose,Whole Blood 122 mg/dL (70-110)
[2023-09-14] MEDS: LACTULOSE 20 GM/30 ML CUP PO SCH (20:50)
[2023-09-15 06:39] LABS: Glucose,Whole Blood 97 mg/dL (70-110)
[2023-09-15 07:17] LABS: Anisocytosis Slight; Basophils % (A) 0 %; Eosinophils # (A) 0.1 k/uL (0-0.7); Eosinophils % (A) 3 %; HCT 32.2 % (39.0-53.0); HGB 9.9 gm/dL (13.0-17.5); Lymphocytes # (A) 0.7 k/uL (1.0-4.8); Lymphocytes % (A) 19 %; MCH 25.7 pg (25.0-35.0); MCHC 30.7 g/dL (31.0-37.0); MCV 83.7 fL (80.0-100.0); Mean Platelet Volume 7.8; Monocytes # (A) 0.3 k/uL (0-1.0); Monocytes % (A) 8 %; Neutrophils # (A) 2.3 k/uL (1.3-7.7); Neutrophils % (A) 66 %; Platelet Count 126 k/uL (150-450); RBC 3.84 m/uL (4.30-5.90); RDW 16.3 % (11.5-15.5); WBC 3.5 k/uL (3.8-10.6)
[2023-09-15 07:45] LABS: African American GFR (CKD) 41 (>60 ml/min/1.73 sqM); Anion Gap 8 mmol/L; Blood Urea Nitrogen 39 mg/dL (9-20); Calcium 9.3 mg/dL (8.4-10.2); Carbon Dioxide 34 mmol/L (22-30); Chloride 92 mmol/L (98-107); Glucose 88 mg/dL (74-99); Non-African American GFR(CKD) 36 (>60 ml/min/1.73 sqM); Potassium 3.5 mmol/L (3.5-5.1); Sodium 134 mmol/L (137-145)
[2023-09-15] MEDS: FAMOTIDINE 20 MG TAB PO SCH (09:40)
--- NOTE | 2023-09-15 10:45 | P.PN ---
Subjective Patient is seen in follow-up for acute kidney injury on chronic kidney disease. Renal function stable. Currently on dobutamine and IV Lasix. Non-oliguric. Weight trending down. Denies chest pain or shortness of breath. Vital signs are stable. General: No acute distress. HEENT: Head exam is unremarkable. LUNGS: No audible rhonchi or wheezes. HEART: Rate and Rhythm are regular. ABDOMEN: Nontender. EXTREMITITES: 2+ edema. Objective - Vital Signs Vital signs: Vital Signs Temp 97.9 F 09/14/23 20:00 Pulse 85 09/15/23 08:00 Resp 16 09/15/23 08:00 BP 104/62 09/15/23 08:00 Pulse Ox 95 09/15/23 08:00 FiO2 Intake & Output 09/14/23 09/15/23 09/15/23 18:59 06:59 18:59 Intake Total 608.407 211.875 Output Total 3200 2580 Balance -2591.593 -2368.125 Weight 103.6 kg Intake: IV 10 Invasive Line 3 10 Intake, IV Titration 240.407 211.875 Amount DOBUTamine DRIP 500 mg In 240.407 211.875 Dextrose/Water 1 250ml. bag @ 5 MCG/KG/MIN 16.95 mls/hr IV .[id number] [facility] Rx #:[id number] Oral 358 Output: Urine 3200 2580 Other: Voiding Method Indwelling Catheter Indwelling Catheter # Bowel Movements 1 - Labs CBC & Chem 7: 09/15/23 06:40 09/15/23 06:40 Labs: Abnormal Lab Results - Last 24 Hours (Table) 09/14/23 09/14/23 09/15/23 Range/Units 16:25 20:40 06:40 WBC (3.8-10.6) k/uL RBC (4.30-5.90) m/uL Hgb (13.0-17.5) gm/dL Hct (39.0-53.0) % MCHC (31.0-37.0) g/dL RDW (11.5-15.5) % Plt Count (150-450) k/uL Lymphocytes # (1.0-4.8) k/uL Sodium 134 L (137-145) mmol/L Chloride 92 L (98-107) mmol/L Carbon Dioxide 34 H (22-30) mmol/L BUN 39 H (9-20) mg/dL Creatinine 2.01 H (0.66-1.25) mg/dL POC Glucose (mg/dL) 127 H 122 H (70-110) mg/dL 09/15/23 Range/Units 06:40 WBC 3.5 L (3.8-10.6) k/uL RBC 3.84 L (4.30-5.90) m/uL Hgb 9.9 L (13.0-17.5) gm/dL Hct 32.2 L (39.0-53.0) % MCHC 30.7 L (31.0-37.0) g/dL RDW 16.3 H (11.5-15.5) % Plt Count 126 L (150-450) k/uL Lymphocytes # 0.7 L (1.0-4.8) k/uL Sodium (137-145) mmol/L Chloride (98-107) mmol/L Carbon Dioxide (22-30) mmol/L BUN (9-20) mg/dL Creatinine (0.66-1.25) mg/dL POC Glucose (mg/dL) (70-110) mg/dL Assessment and Plan Plan: Assessment: 1. Acute kidney injury secondary to ATN secondary to cardiorenal syndrome. Creatinine stable at 2.01 today. 2. Acute on chronic systolic CHF with ejection fraction of 15 to 20%. 3. Volume overload. 4. Hypokalemia from diuresis. 5. Chronic kidney disease stage IIIa with baseline creatinine 1.3-1.5. 6. Elevated free kappa light chains being followed by hematology. 7. Diabetes mellitus. Plan: Maintain IV Lasix and dobutamine. Stop metolazone. Add Farxiga. Replace potassium. Maintain low-salt diet. Add 1500 cc fluid restriction.
--- NOTE | 2023-09-15 10:53 | P.PN ---
Subjective Progress Note Date: 09/15/23 HISTORY OF PRESENT ILLNESS: Patient is a pleasant 58-year-old male with significant past medical history diabetes type 2 since age 45, asthma, hypertension, hyperlipidemia and more recently acute systolic heart failure who presents for worsening edema and shortness of breath. He has previously seen Dr. Mccartney. He was recently admitted a few weeks ago and found to have severe LV systolic dysfunction with EF of 15- 20%. Denies any prior history of heart failure. He reports that he has been having issues with swelling in his lower extremities for the past couple months. He does currently have his LifeVest on. He does report having a significant family history of heart disease however is unable to recall who had what. He is trying to cut back on smoking marijuana. His main complaint is scrotal swelling and constipation. This is very uncomfortable and is he is unable to perform his normal activities at home. Chest x-ray shows mild/moderate CHF, with enlarging moderate sized right pleural effusion. Labs reviewed: Hemoglobin 11.3, creatinine 2.26, potassium 4.4, BNP 25651. Echocardiogram 08/12/2023 with a EF 15-20%, moderate mitral regurgitation and tricuspid regurgitation. 09/07/23 ECHO with slight improvement of EF to 20-25%, moderate to severe mitral regurgitation. Creat stable at 2.27. He reports having increased stress from family issues and needed a xanax today. Otherwise he is doing ok. No chest pain. Shortness of breath stable. Slight improvement in edema. 09/08 No complaints of chest pain, shortness of breath is stable. Blood pressure 100/66, heart rate in the 80s, pulse ox 90% on room air. Patient is maintained on IV Lasix 80 mg every 8 hours. Weights do not appear to be accurate. Patient had a negative fluid balance yesterday of 560 mL. No repeat blood work for today. BMP ordered for tomorrow 09/09 Patient denies having any chest pain. No shortness of breath. Patient was tentatively scheduled for cardiac catheterization. Lab work this morning reveals BUN 39 creatinine 2.26 which appears to be patient's baseline, potassium 3.9. Heart rate 82, blood pressure 93/52, pulse ox 99% on room air. Yesterday, IV Lasix frequency was decreased to twice daily. 09/10 Patient's cardiac catheterization was delayed until today. Repeat lab work reveals BUN 41 creatinine 2.16. Patient denies any chest pain or short of breath. He has been continued on IV Lasix and the morning dose was held. 09/11/2023 Patient is s/p cardiac catherization with Dr. Cheung. Cath revealed three-vessel coronary artery disease with chronic occlusion of the right coronary artery and significant disease involving circumflex coronary arteries and diffuse disease involving the LAD. Patient denies chest pain or pressure. He reports mild SOB. He remains on IV lasix. Vital signs stable. 09/12/2023 Patient examined this morning at the bedside. Patient denies chest pain or pressure. He currently denies shortness of breath. He is laying flat in bed and appears comfortable. He remains on IV diuresis. Patient was also started on dobutamine yesterday. Urine output for the last 24 hours is 1925 cc. 09/13/2023 Patient seen and examined sitting up in bed. Maintained on dobutamine infusion and IV Lasix. Laboratory data reviewed, hemoglobin 10.1, platelets 104, potassium 3.3, creatinine 2.1 and magnesium 1.8. He is maintaining a negative fluid balance for the previous 24 hours and weight is down 2 kg. Blood pressure 108/70 heart rate 85. 09/14/2023 Seen laying flat in bed. He ate breakfast. He is diuresing well on current regimen with 3.2 L out in 24 hours and weight down 3 kg. Blood pressure stable. Potassium low today, will replace and creatinine stable at 2.04. 09/15 Patient has been up to the bathroom and complains of shortness of breath with minimal ambulation. He is however able to lay flat in bed. Patient denies having any chest pain. He is on dobutamine at 5 mics. He is also on Lasix 80 mg IV every 8 hours, metolazone 5 mg daily and midodrine as needed. Repeat blood work reveals BUN of 39 creatinine 2.01. Patient continues to have good urine output with yesterday at a -2470. Weight appears to be down 5 kg from yesterday. Nephrology has continue patient on IV Lasix and dobutamine and stop metolazone, added Farxiga. PHYSICAL EXAM: VITAL SIGNS: Reviewed. GENERAL: Well-developed in no acute distress. NECK: Supple. No JVD or thyromegaly LUNGS: Respirations even and unlabored. Lungs diminished bilaterally. HEART: Regular rate and rhythm. S1 and S2 heard. + systolic murmur EXTREMITIES: No clubbing or cyanosis. Peripheral pulses intact. 2+ bilateral lower extremity edema ASSESSMENT: Acute on chronic heart failure with reduced EF, 15-20% Ischemic cardiomyopathy Triple vessel coronary artery disease with chronic occlusion of the right coronary artery and significant disease involving the circumflex and diffuse disease involving the LAD status post cardiac catheterization 2/ Chronic occlusion of RCA Acute kidney injury Diabetes type 2 Hyperlipidemia Hypertension Marijuana use Moderate right pleural effusion Moderate mitral regurgitation PLAN: Continue current cardiac medications BMP in the morning. Daily weights, accurate I&O, and daily weights Will consider Lexiscan in the future when patient is clinically stable. If ischemia in circumflex region, would consider revascularization. May benefit from evaluation at a tertiary care center, can be initiated as an outpatient Further recommendations pending patient course Nurse practitioner note has been reviewed by physician. Signing provider agrees with the documented findings, assessment, and plan of care documented by CHIEF WRITER as a scribe. Objective - Vital Signs Vital signs: Vital Signs Temp 97.9 F 09/14/23 20:00 Pulse 71 09/15/23 04:00 Resp 18 09/15/23 04:00 BP 109/68 09/15/23 04:00 Pulse Ox 94 L 09/15/23 04:00 FiO2 Intake & Output 09/14/23 09/15/23 09/15/23 18:59 06:59 18:59 Intake Total 608.407 211.875 Output Total 3200 2580 Balance -2591.593 -2368.125 Weight 103.6 kg Intake: IV 10 Invasive Line 3 10 Intake, IV Titration 240.407 211.875 Amount DOBUTamine DRIP 500 mg In 240.407 211.875 Dextrose/Water 1 250ml. bag @ 5 MCG/KG/MIN 16.95 mls/hr IV .[id number] [facility] Rx #:[id number] Oral 358 Output: Urine 3200 2580 Other: Voiding Method Indwelling Catheter Indwelling Catheter # Bowel Movements 1 - Labs CBC & Chem 7: 09/15/23 06:40 09/15/23 06:40 Labs: Abnormal Lab Results - Last 24 Hours (Table) 09/14/23 09/14/23 09/14/23 Range/Units 08:46 16:25 20:40 WBC (3.8-10.6) k/uL RBC (4.30-5.90) m/uL Hgb (13.0-17.5) gm/dL Hct (39.0-53.0) % MCHC (31.0-37.0) g/dL RDW (11.5-15.5) % Plt Count (150-450) k/uL Lymphocytes # (1.0-4.8) k/uL Sodium 134 L (137-145) mmol/L Potassium 3.3 L (3.5-5.1) mmol/L Chloride 96 L (98-107) mmol/L Carbon Dioxide 31 H (22-30) mmol/L BUN 41 H (9-20) mg/dL Creatinine 2.04 H (0.66-1.25) mg/dL POC Glucose (mg/dL) 127 H 122 H (70-110) mg/dL 09/15/23 09/15/23 Range/Units 06:40 06:40 WBC 3.5 L (3.8-10.6) k/uL RBC 3.84 L (4.30-5.90) m/uL Hgb 9.9 L (13.0-17.5) gm/dL Hct 32.2 L (39.0-53.0) % MCHC 30.7 L (31.0-37.0) g/dL RDW 16.3 H (11.5-15.5) % Plt Count 126 L (150-450) k/uL Lymphocytes # 0.7 L (1.0-4.8) k/uL Sodium 134 L (137-145) mmol/L Potassium (3.5-5.1) mmol/L Chloride 92 L (98-107) mmol/L Carbon Dioxide 34 H (22-30) mmol/L BUN 39 H (9-20) mg/dL Creatinine 2.01 H (0.66-1.25) mg/dL POC Glucose (mg/dL) (70-110) mg/dL
--- NOTE | 2023-09-15 11:34 | P.PN ---
Subjective Progress Note Date: 09/15/23 58-year-old male with significant past medical history diabetes type 2 since age 45, asthma, hypertension, hyperlipidemia and more recently acute systolic heart failure who presents for worsening edema and shortness of breath. He has previously seen Dr. Mccartney. He was recently admitted a few weeks ago and found to have severe LV systolic dysfunction with EF of 15-20%. Denies any prior history of heart failure. He reports that he has been having issues with swelling in his lower extremities for the past couple months. He does currently have his LifeVest on. He does report having a significant family history of heart disease however is unable to recall who had what. He is trying to cut back on smoking marijuana. His main complaint is scrotal swelling and constipation. This is very uncomfortable and is he is unable to perform his normal activities at home. Chest x-ray shows mild/moderate CHF, with enlarging moderate sized right pleural effusion. Labs reviewed: WBC of 3.3, hemoglobin 11.3, platelet count of 145, sodium 138, potassium 4.4, BUN of 34, creatinine 2.26, BNP 37318. Last echocardiogram 08/12/2023 with a EF 15-20%, moderate mitral regurgitation and tricuspid regurgitation.Cardiology recommending to continue Lasix to 80 mg 3 times daily. Monitor kidney function. Continue with LifeVest. Lambda and kappa light chains- PENDING. Will consider right heart cath on Friday to measure pressures, concern for possible end stage heart failure. We will follow. NPO after midnight. 09/08/2023 Patient sitting up in bed. Awake and oriented and breathing quietly on room air He has 2+ bilateral patellar like edema Compression from exertional dyspnea Remains on IV Solu-Medrol 80 mg twice daily today. Ejection fraction 20-25% with moderate to severe mitral regurgitation Plan for cardiac cath tomorrow morning. Creatinine is stable about 2.3 He has mild pancytopenia with B12 and folate level acceptable 09/09/2023 Patient breathing is stable. He is on room air. His with no shortness of breath at rest, no orthopnea Has minimal leg edema and minimal basilar crepitation He is on IV Lasix 80 mg twice daily with good urine output He is getting normal saline 50 mL/h per day because he is going for cardiac cath with cartilage team. This mild pancytopenia is stable 09/10/2023 Patient awake at baseline, no dyspnea Has significant bilateral leg swelling and anasarca Blood pressure is borderline but patient is as symptomatic as average urine output Normal saline 50 mL was used up today and resume his IV Lasix 80 mg twice daily Creatinine 2.1 Patient also underwent cardiac cath today He is placed on Coreg 3.125, Imdur 30 mg, aspirin 81 mg Also patient has mildly elevated I light chain with level more than 4 times the reference range before going to consult hematology team 09/11/2023 Patient awake alert, still with significant anasarca with no specific complaints He status post cardiac cath yesterday showing severe triple vessel coronary artery disease with chronically occluded right coronary arteries and significant disease involving the left circumflex and extensive disease of the LAD. Patient placed on aspirin 81 mg and Lipitor by agile project manager and was started on dobutamine drip while he remains on IV Lasix 80 mg twice daily, creatinine 2.1 which is stable. Plan to repeat a Lexiscan stress test to see if he will require stents to left circumflex artery. Motility team also following the patient closely for mild pancytopenia and elevated light chain, bone survey and serology workup is ordered by hematology were R following closely Patient feels a little depressed and he says he was on Cymbalta 60 mg daily and he wanted back. No suicidal ideation 09/12/2023 No chest pain, no dyspnea Awake and alert at baseline Reed catheter and the place. Currently he is receiving dobutamine drip at 5 g per KG per minutes Also has an IV Lasix 80 mg twice daily He is on aspirin 81 mg Lipitor and Coreg Cardiac cath done yesterday showing severe triple vessel coronary artery disease and he might require Lexiscan stress test to check for reversible ischemia and need for stents or no. Inventory Control Coordinator team on the case with workup undergoing for hyperproteinemia with elevated I light chain. X-ray bone survey is pending as well as serologic workup 09/13/2023 Patient is a stain in bed, mild tachypnea but severe anasarca He remains on dobutamine drip, IV diuretics Lasix and metolazone Also he is on midodrine scheduled dose starting today Low potassium replaced. Creatinine stable at 2.1 09/14/2023 Patient is making good urine outpatient and he looks like he lost some weight Patient continued on IV Lasix and dose increased to 80 mg 3 times a day He remains on dobutamine Patient was counseled about fluid restriction and he agrees He still has constipation and lactulose 30 mg twice daily was added today 09/15/23: Dr Erickson resumed care And seen and evaluated bedside, patient complaining of loose stool, encourage use of yogurt, patient had bowel movement was initially constipated and was given lactulose, will discontinue lactulose Blood work reviewed WBC 3.5 hemoglobin 9.9 platelet count 126. Serum chemistry sodium 134 potassium 3.5 carbon dioxide 34 BUN 39 creatinine 2.01 GENERAL: The patient is alert and oriented x3, ill appearance, pale appearance HEENT: Pupils are round and equally reacting to light. EOMI. CARDIOVASCULAR: S1 and S2 present. No murmurs, rubs, or gallops. PULMONARY: Chest is clear to auscultation, no wheezing , no crackles. ABDOMEN: Soft, nontender, nondistended, normoactive bowel sounds. MUSCULOSKELETAL: No joint swelling or deformity. EXTREMITIES: No cyanosis, clubbing, bilateral pitting leg NEUROLOGICAL: Gross neurological examination did not reveal any focal deficits. SKIN: No rashes. no petechiae. Objective - Vital Signs Vital signs: Vital Signs Temp 97.9 F 09/14/23 20:00 Pulse 85 09/15/23 08:00 Resp 16 09/15/23 08:00 BP 104/62 09/15/23 08:00 Pulse Ox 95 09/15/23 08:00 FiO2 Intake & Output 09/14/23 09/15/23 09/15/23 18:59 06:59 18:59 Intake Total 608.407 211.875 Output Total 3200 2580 Balance -2591.593 -2368.125 Weight 103.6 kg Intake: IV 10 Invasive Line 3 10 Intake, IV Titration 240.407 211.875 Amount DOBUTamine DRIP 500 mg In 240.407 211.875 Dextrose/Water 1 250ml. bag @ 5 MCG/KG/MIN 16.95 mls/hr IV .[id number] [facility] Rx #:[id number] Oral 358 Output: Urine 3200 2580 Other: Voiding Method Indwelling Catheter Indwelling Catheter # Bowel Movements 1 - Labs CBC & Chem 7: 09/15/23 06:40 09/15/23 06:40 Labs: Abnormal Lab Results - Last 24 Hours (Table) 09/14/23 09/14/23 09/15/23 Range/Units 16:25 20:40 06:40 WBC (3.8-10.6) k/uL RBC (4.30-5.90) m/uL Hgb (13.0-17.5) gm/dL Hct (39.0-53.0) % MCHC (31.0-37.0) g/dL RDW (11.5-15.5) % Plt Count (150-450) k/uL Lymphocytes # (1.0-4.8) k/uL Sodium 134 L (137-145) mmol/L Chloride 92 L (98-107) mmol/L Carbon Dioxide 34 H (22-30) mmol/L BUN 39 H (9-20) mg/dL Creatinine 2.01 H (0.66-1.25) mg/dL POC Glucose (mg/dL) 127 H 122 H (70-110) mg/dL 09/15/23 Range/Units 06:40 WBC 3.5 L (3.8-10.6) k/uL RBC 3.84 L (4.30-5.90) m/uL Hgb 9.9 L (13.0-17.5) gm/dL Hct 32.2 L (39.0-53.0) % MCHC 30.7 L (31.0-37.0) g/dL RDW 16.3 H (11.5-15.5) % Plt Count 126 L (150-450) k/uL Lymphocytes # 0.7 L (1.0-4.8) k/uL Sodium (137-145) mmol/L Chloride (98-107) mmol/L Carbon Dioxide (22-30) mmol/L BUN (9-20) mg/dL Creatinine (0.66-1.25) mg/dL POC Glucose (mg/dL) (70-110) mg/dL Assessment and Plan Assessment: Assessment and plan * Acute and chronic systolic congestive heart failure with ejection fraction 20- 25%, status post LifeVest * ischemic cardiomyopathy with cardiac cath showed severe triple-vessel coronary artery disease * Chronic kidney disease stage III with acute kidney injury secondary to cardiorenal syndrome * Mild pancytopenia, Elevated light kappa chain * Hypertension * Hyperlipidemia * Diabetes mellitus * BPH * Pancytopenia * In regards to congestive heart failure, continue patient on diuresis, receiving dobutamine, Lasix daily, continue to monitor intake and output * In regards to cardiomyopathy, continue patient on dobutamine, continue Lasix, continue blood pressure support with midodrine continue Imdur * Guards to multivessel coronary artery disease continue aspirin, Lipitor, Coreg * In regards to hypertension continue patient on Coreg * In regards to pancytopenia, patient seen by hematology oncology, recommend outpatient follow-up continue to follow-up on CBC likely secondary to underlying medical comorbidities Time with Patient: Greater than 30
[2023-09-15 11:46] LABS: Glucose,Whole Blood 121 mg/dL (70-110)
[2023-09-15 12:33] LABS: Free Kappa Lt Chain Qnt, Urine 0.36 mg/dL (0.00-3.29)
[2023-09-15] MEDS: POTASSIUM CHLORIDE ER 20 MEQ TAB.ER PO STA (13:05)
[2023-09-15 14:29] LABS: Free Lambda Lt Chain Qt, Urine <0.08 mg/dL (0.00-0.38)
[2023-09-15 16:52] LABS: Glucose,Whole Blood 101 mg/dL (70-110)
--- NOTE | 2023-09-15 20:10 | P.PN ---
Subjective Progress Note Date: 09/15/23 Principal diagnosis: Increased KLC In follow-up today patient has no specific complaints. The swelling in his legs is improved, he is not as short of breath. Denies fevers, nausea, vomiting, acute changes in bowel or bladder, no new pain to report. Objective - Vital Signs Vital signs: Vital Signs Temp 97.9 F 09/14/23 20:00 Pulse 85 09/15/23 12:00 Resp 16 09/15/23 12:00 BP 102/65 09/15/23 12:00 Pulse Ox 93 L 09/15/23 12:00 FiO2 Intake & Output 09/14/23 09/15/23 09/15/23 18:59 06:59 18:59 Intake Total 608.407 211.875 480 Output Total 3200 2580 0 Balance -2591.593 -2368.125 480 Weight 103.6 kg Intake: IV 10 Invasive Line 3 10 Intake, IV Titration 240.407 211.875 Amount DOBUTamine DRIP 500 mg In 240.407 211.875 Dextrose/Water 1 250ml. bag @ 5 MCG/KG/MIN 16.95 mls/hr IV .[id number] [facility] Rx #:[id number] Oral 358 480 Output: Urine 3200 2580 Stool 0 Other: Voiding Method Indwelling Catheter Indwelling Catheter Indwelling Catheter # Bowel Movements 1 - Constitutional General appearance: Present: average body habitus, cooperative, no acute distress - EENT Eyes: Present: anicteric sclerae, EOMI ENT: Present: hearing grossly normal, normal oropharynx - Respiratory Respiratory: bilateral: CTA - Cardiovascular Rhythm: regular Heart sounds: normal: S1, S2 Abnormal Heart Sounds: Absent: systolic murmur, diastolic murmur, rub, S3 Gallop, S4 Gallop, click, other - Peripheral edema leg Peripheral Edema: bilateral: Trace - Gastrointestinal General gastrointestinal: Present: normal bowel sounds, soft. Absent: absent bowel sounds, decreased bowel sounds, distended, hepatomegaly, hyperactive bowel sounds, organomegaly, rigid, scaphoid, splenomegaly, tenderness, umbilical hernia, ventral hernia - Neurologic Neurologic: Present: CNII-XII intact - Musculoskeletal Musculoskeletal: Present: strength equal bilaterally - Psychiatric Psychiatric: Present: A&O x's 3, appropriate affect - Labs CBC & Chem 7: 09/15/23 06:40 09/15/23 06:40 Labs: Abnormal Lab Results - Last 24 Hours (Table) 09/14/23 09/14/23 09/15/23 Range/Units 16:25 20:40 06:40 WBC (3.8-10.6) k/uL RBC (4.30-5.90) m/uL Hgb (13.0-17.5) gm/dL Hct (39.0-53.0) % MCHC (31.0-37.0) g/dL RDW (11.5-15.5) % Plt Count (150-450) k/uL Lymphocytes # (1.0-4.8) k/uL Sodium 134 L (137-145) mmol/L Chloride 92 L (98-107) mmol/L Carbon Dioxide 34 H (22-30) mmol/L BUN 39 H (9-20) mg/dL Creatinine 2.01 H (0.66-1.25) mg/dL POC Glucose (mg/dL) 127 H 122 H (70-110) mg/dL 09/15/23 09/15/23 Range/Units 06:40 11:45 WBC 3.5 L (3.8-10.6) k/uL RBC 3.84 L (4.30-5.90) m/uL Hgb 9.9 L (13.0-17.5) gm/dL Hct 32.2 L (39.0-53.0) % MCHC 30.7 L (31.0-37.0) g/dL RDW 16.3 H (11.5-15.5) % Plt Count 126 L (150-450) k/uL Lymphocytes # 0.7 L (1.0-4.8) k/uL Sodium (137-145) mmol/L Chloride (98-107) mmol/L Carbon Dioxide (22-30) mmol/L BUN (9-20) mg/dL Creatinine (0.66-1.25) mg/dL POC Glucose (mg/dL) 121 H (70-110) mg/dL Assessment and Plan (1) Pancytopenia Current Visit: Yes Status: Acute Priority: Medium Code(s): D61.818 - OTHER PANCYTOPENIA SNOMED Code(s): 104744725 Plan: Pancytopenia, elevated Mullen light chain -Pancytopenia stable. No need for transfusions or G-CSF at this time. Possibly secondary to liver and splenic congestion from CHF -Immunofixation and protein electrophoresis are both negative. IgA is low, normal IgG. Beta-2 microglobulin elevated at 7. So far nonspecific findings. -Bone survey pending. -Iron studies from August 2023 showed iron saturation 6.5%, ferritin 91, most consistent with iron deficiency. Will plan for parenteral iron. -Recommendation for follow-up with GI for iron deficient anemia as last colonoscopy was greater than 5 years ago. -Panctopenia likely 2/2 liver and splenic congestion from CHF. -Will continue to follow up, few tests and labs still pending.
[2023-09-15 20:43] LABS: Glucose,Whole Blood 118 mg/dL (70-110)
[2023-09-16 05:29] LABS: Glucose,Whole Blood 97 mg/dL (70-110)
[2023-09-16 08:58] LABS: Anisocytosis Slight; HCT 33.2 % (39.0-53.0); HGB 10.7 gm/dL (13.0-17.5); Hypochromasia Slight; MCH 26.7 pg (25.0-35.0); MCHC 32.1 g/dL (31.0-37.0); MCV 83.2 fL (80.0-100.0); Mean Platelet Volume 7.5; Platelet Count 131 k/uL (150-450); RBC 3.99 m/uL (4.30-5.90); RDW 16.1 % (11.5-15.5); WBC 4.2 k/uL (3.8-10.6)
[2023-09-16] MEDS: DAPAGLIFLOZIN PROPANEDIOL 5 MG TABLET PO SCH (09:09)
[2023-09-16 09:53] LABS: African American GFR (CKD) 42 (>60 ml/min/1.73 sqM); Anion Gap 9 mmol/L; Blood Urea Nitrogen 39 mg/dL (9-20); Calcium 9.7 mg/dL (8.4-10.2); Carbon Dioxide 39 mmol/L (22-30); Chloride 87 mmol/L (98-107); Glucose 99 mg/dL (74-99); Non-African American GFR(CKD) 36 (>60 ml/min/1.73 sqM); Potassium 3.2 mmol/L (3.5-5.1); Sodium 135 mmol/L (137-145)
--- NOTE | 2023-09-16 11:04 | P.PN ---
Subjective Patient is seen in follow-up for acute kidney injury on chronic kidney disease. Renal function stable. Currently on dobutamine and IV Lasix. Non-oliguric. Weight trending down. Denies chest pain or shortness of breath. Vital signs are stable. General: No acute distress. HEENT: Head exam is unremarkable. LUNGS: No audible rhonchi or wheezes. HEART: Rate and Rhythm are regular. ABDOMEN: Nontender. EXTREMITITES: Trace edema. Objective - Vital Signs Vital signs: Vital Signs Temp 96.7 F L 09/16/23 08:07 Pulse 88 09/16/23 08:07 Resp 16 09/16/23 08:07 BP 124/90 09/16/23 08:07 Pulse Ox 96 09/16/23 08:07 FiO2 Intake & Output 09/15/23 09/16/23 09/16/23 18:59 06:59 18:59 Intake Total 730 233.063 Output Total 1750 3400 Balance -1020 -3166.937 Weight 97.6 kg Intake: Intake, IV Titration 250 233.063 Amount DOBUTamine DRIP 500 mg In 250 233.063 Dextrose/Water 1 250ml. bag @ 5 MCG/KG/MIN 16.95 mls/hr IV .[id number] [facility] Rx #:[id number] Oral 480 Output: Urine 1750 3400 Stool 0 Other: Voiding Method Indwelling Catheter Indwelling Catheter Indwelling Catheter - Labs CBC & Chem 7: 09/16/23 08:31 09/16/23 08:31 Labs: Abnormal Lab Results - Last 24 Hours (Table) 09/15/23 09/15/23 09/16/23 Range/Units 11:45 20:42 08:31 RBC 3.99 L (4.30-5.90) m/uL Hgb 10.7 L (13.0-17.5) gm/dL Hct 33.2 L (39.0-53.0) % RDW 16.1 H (11.5-15.5) % Plt Count 131 L (150-450) k/uL Sodium (137-145) mmol/L Potassium (3.5-5.1) mmol/L Chloride (98-107) mmol/L Carbon Dioxide (22-30) mmol/L BUN (9-20) mg/dL Creatinine (0.66-1.25) mg/dL POC Glucose (mg/dL) 121 H 118 H (70-110) mg/dL 09/16/23 Range/Units 08:31 RBC (4.30-5.90) m/uL Hgb (13.0-17.5) gm/dL Hct (39.0-53.0) % RDW (11.5-15.5) % Plt Count (150-450) k/uL Sodium 135 L (137-145) mmol/L Potassium 3.2 L (3.5-5.1) mmol/L Chloride 87 L (98-107) mmol/L Carbon Dioxide 39 H (22-30) mmol/L BUN 39 H (9-20) mg/dL Creatinine 2.00 H (0.66-1.25) mg/dL POC Glucose (mg/dL) (70-110) mg/dL Assessment and Plan Plan: Assessment: 1. Acute kidney injury secondary to ATN secondary to cardiorenal syndrome. Creatinine stable at 2.0 today. 2. Acute on chronic systolic CHF with ejection fraction of 15 to 20%. 3. Volume overload. Improved with diuresis. 4. Hypokalemia from diuresis. 5. Chronic kidney disease stage IIIa with baseline creatinine 1.3-1.5. 6. Elevated free kappa light chains being followed by hematology. 7. Diabetes mellitus. Plan: Dobutamine per cardiology. Stop IV Lasix. Add oral Bumex 2 mg twice daily. Maintain Farxiga. Replace potassium. Maintain low-salt diet. Maintain 1500 cc fluid restriction. Advised patient to maintain low-salt diet and fluid restriction of less than 50 ounces per day upon discharge. He was also advised to monitor his weight closely at home and to notify physician if develops edema or gains more than 3 pounds in 1 week duration. Follow-up outpatient 1 week postdischarge.
--- NOTE | 2023-09-16 11:46 | P.PN ---
Subjective Progress Note Date: 09/16/23 58-year-old male with significant past medical history diabetes type 2 since age 45, asthma, hypertension, hyperlipidemia and more recently acute systolic heart failure who presents for worsening edema and shortness of breath. He has previously seen Dr. Mccartney. He was recently admitted a few weeks ago and found to have severe LV systolic dysfunction with EF of 15-20%. Denies any prior history of heart failure. He reports that he has been having issues with swelling in his lower extremities for the past couple months. He does currently have his LifeVest on. He does report having a significant family history of heart disease however is unable to recall who had what. He is trying to cut back on smoking marijuana. His main complaint is scrotal swelling and constipation. This is very uncomfortable and is he is unable to perform his normal activities at home. Chest x-ray shows mild/moderate CHF, with enlarging moderate sized right pleural effusion. Labs reviewed: WBC of 3.3, hemoglobin 11.3, platelet count of 145, sodium 138, potassium 4.4, BUN of 34, creatinine 2.26, BNP 34769. Last echocardiogram 08/12/2023 with a EF 15-20%, moderate mitral regurgitation and tricuspid regurgitation.Cardiology recommending to continue Lasix to 80 mg 3 times daily. Monitor kidney function. Continue with LifeVest. Lambda and kappa light chains- PENDING. Will consider right heart cath on Friday to measure pressures, concern for possible end stage heart failure. We will follow. NPO after midnight. 09/08/2023 Patient sitting up in bed. Awake and oriented and breathing quietly on room air He has 2+ bilateral patellar like edema Compression from exertional dyspnea Remains on IV Solu-Medrol 80 mg twice daily today. Ejection fraction 20-25% with moderate to severe mitral regurgitation Plan for cardiac cath tomorrow morning. Creatinine is stable about 2.3 He has mild pancytopenia with B12 and folate level acceptable 09/09/2023 Patient breathing is stable. He is on room air. His with no shortness of breath at rest, no orthopnea Has minimal leg edema and minimal basilar crepitation He is on IV Lasix 80 mg twice daily with good urine output He is getting normal saline 50 mL/h per day because he is going for cardiac cath with cartilage team. This mild pancytopenia is stable 09/10/2023 Patient awake at baseline, no dyspnea Has significant bilateral leg swelling and anasarca Blood pressure is borderline but patient is as symptomatic as average urine output Normal saline 50 mL was used up today and resume his IV Lasix 80 mg twice daily Creatinine 2.1 Patient also underwent cardiac cath today He is placed on Coreg 3.125, Imdur 30 mg, aspirin 81 mg Also patient has mildly elevated I light chain with level more than 4 times the reference range before going to consult hematology team 09/11/2023 Patient awake alert, still with significant anasarca with no specific complaints He status post cardiac cath yesterday showing severe triple vessel coronary artery disease with chronically occluded right coronary arteries and significant disease involving the left circumflex and extensive disease of the LAD. Patient placed on aspirin 81 mg and Lipitor by metal spray operator and was started on dobutamine drip while he remains on IV Lasix 80 mg twice daily, creatinine 2.1 which is stable. Plan to repeat a Lexiscan stress test to see if he will require stents to left circumflex artery. Motility team also following the patient closely for mild pancytopenia and elevated light chain, bone survey and serology workup is ordered by hematology were R following closely Patient feels a little depressed and he says he was on Cymbalta 60 mg daily and he wanted back. No suicidal ideation 09/12/2023 No chest pain, no dyspnea Awake and alert at baseline Reed catheter and the place. Currently he is receiving dobutamine drip at 5 g per KG per minutes Also has an IV Lasix 80 mg twice daily He is on aspirin 81 mg Lipitor and Coreg Cardiac cath done yesterday showing severe triple vessel coronary artery disease and he might require Lexiscan stress test to check for reversible ischemia and need for stents or no. Qualified Craft Worker Electrician team on the case with workup undergoing for hyperproteinemia with elevated I light chain. X-ray bone survey is pending as well as serologic workup 09/13/2023 Patient is a stain in bed, mild tachypnea but severe anasarca He remains on dobutamine drip, IV diuretics Lasix and metolazone Also he is on midodrine scheduled dose starting today Low potassium replaced. Creatinine stable at 2.1 09/14/2023 Patient is making good urine outpatient and he looks like he lost some weight Patient continued on IV Lasix and dose increased to 80 mg 3 times a day He remains on dobutamine Patient was counseled about fluid restriction and he agrees He still has constipation and lactulose 30 mg twice daily was added today 09/15/23: Dr Erickson resumed care And seen and evaluated bedside, patient complaining of loose stool, encourage use of yogurt, patient had bowel movement was initially constipated and was given lactulose, will discontinue lactulose Blood work reviewed WBC 3.5 hemoglobin 9.9 platelet count 126. Serum chemistry sodium 134 potassium 3.5 carbon dioxide 34 BUN 39 creatinine 2.01 09/16/2023: Patient seen and evaluated bedside, potassium replaced, renal function noted, creatinine trending down around 2 now, potassium 3.2. Appreciate input from hematology. Etiology for pancytopenia likely secondary to underlying comorbidities. [place] and lambda proteins reviewed. Nephrology following continue patient on dobutamine drip GENERAL: The patient is alert and oriented x3, ill appearance, pale appearance HEENT: Pupils are round and equally reacting to light. EOMI. CARDIOVASCULAR: S1 and S2 present. No murmurs, rubs, or gallops. PULMONARY: Chest is clear to auscultation, no wheezing , no crackles. ABDOMEN: Soft, nontender, nondistended, normoactive bowel sounds. MUSCULOSKELETAL: No joint swelling or deformity. EXTREMITIES: No cyanosis, clubbing, bilateral pitting leg NEUROLOGICAL: Gross neurological examination did not reveal any focal deficits. SKIN: No rashes. no petechiae. Objective - Vital Signs Vital signs: Vital Signs Temp 96.2 F L 09/16/23 11:31 Pulse 87 09/16/23 11:31 Resp 18 09/16/23 11:31 BP 103/65 09/16/23 11:31 Pulse Ox 97 09/16/23 11:31 FiO2 Intake & Output 09/15/23 09/16/23 09/16/23 18:59 06:59 18:59 Intake Total 730 233.063 Output Total 1750 3400 Balance -1020 -3166.937 Weight 97.6 kg Intake: Intake, IV Titration 250 233.063 Amount DOBUTamine DRIP 500 mg In 250 233.063 Dextrose/Water 1 250ml. bag @ 5 MCG/KG/MIN 16.95 mls/hr IV .[id number] [facility] Rx #:[id number] Oral 480 Output: Urine 1750 3400 Stool 0 Other: Voiding Method Indwelling Catheter Indwelling Catheter Indwelling Catheter - Labs CBC & Chem 7: 09/16/23 08:31 09/16/23 08:31 Labs: Abnormal Lab Results - Last 24 Hours (Table) 09/15/23 09/15/23 09/16/23 Range/Units 11:45 20:42 08:31 RBC 3.99 L (4.30-5.90) m/uL Hgb 10.7 L (13.0-17.5) gm/dL Hct 33.2 L (39.0-53.0) % RDW 16.1 H (11.5-15.5) % Plt Count 131 L (150-450) k/uL Sodium (137-145) mmol/L Potassium (3.5-5.1) mmol/L Chloride (98-107) mmol/L Carbon Dioxide (22-30) mmol/L BUN (9-20) mg/dL Creatinine (0.66-1.25) mg/dL POC Glucose (mg/dL) 121 H 118 H (70-110) mg/dL 09/16/23 Range/Units 08:31 RBC (4.30-5.90) m/uL Hgb (13.0-17.5) gm/dL Hct (39.0-53.0) % RDW (11.5-15.5) % Plt Count (150-450) k/uL Sodium 135 L (137-145) mmol/L Potassium 3.2 L (3.5-5.1) mmol/L Chloride 87 L (98-107) mmol/L Carbon Dioxide 39 H (22-30) mmol/L BUN 39 H (9-20) mg/dL Creatinine 2.00 H (0.66-1.25) mg/dL POC Glucose (mg/dL) (70-110) mg/dL Assessment and Plan Assessment: Assessment and plan * Acute and chronic systolic congestive heart failure with ejection fraction 20- 25%, status post LifeVest * ischemic cardiomyopathy with cardiac cath showed severe triple-vessel coronary artery disease * Chronic kidney disease stage III with acute kidney injury secondary to cardiorenal syndrome * Mild pancytopenia, Elevated light kappa chain * Hypertension * Hyperlipidemia * Diabetes mellitus * BPH * Pancytopenia * In regards to congestive heart failure, continue patient on diuresis, receiving dobutamine, Lasix daily, continue to monitor intake and output * In regards to cardiomyopathy, continue patient on dobutamine, continue Lasix, continue blood pressure support with midodrine continue Imdur * Guards to multivessel coronary artery disease continue aspirin, Lipitor, Coreg * In regards to hypertension continue patient on Coreg * In regards to pancytopenia, patient seen by hematology oncology, recommend outpatient follow-up continue to follow-up on CBC likely secondary to underlying medical comorbidities
[2023-09-16 11:58] LABS: Glucose,Whole Blood 107 mg/dL (70-110)
[2023-09-16] MEDS: POTASSIUM CHLORIDE ER 20 MEQ TAB.ER PO STA (12:05)
--- NOTE | 2023-09-16 14:43 | P.PN ---
Subjective Progress Note Date: 09/16/23 HISTORY OF PRESENT ILLNESS: Patient is a pleasant 58-year-old male with significant past medical history diabetes type 2 since age 45, asthma, hypertension, hyperlipidemia and more recently acute systolic heart failure who presents for worsening edema and shortness of breath. He has previously seen Dr. Mccartney. He was recently admitted a few weeks ago and found to have severe LV systolic dysfunction with EF of 15- 20%. Denies any prior history of heart failure. He reports that he has been having issues with swelling in his lower extremities for the past couple months. He does currently have his LifeVest on. He does report having a significant family history of heart disease however is unable to recall who had what. He is trying to cut back on smoking marijuana. His main complaint is scrotal swelling and constipation. This is very uncomfortable and is he is unable to perform his normal activities at home. Chest x-ray shows mild/moderate CHF, with enlarging moderate sized right pleural effusion. Labs reviewed: Hemoglobin 11.3, creatinine 2.26, potassium 4.4, BNP 13394. Echocardiogram 08/12/2023 with a EF 15-20%, moderate mitral regurgitation and tricuspid regurgitation. 09/07/23 ECHO with slight improvement of EF to 20-25%, moderate to severe mitral regurgitation. Creat stable at 2.27. He reports having increased stress from family issues and needed a xanax today. Otherwise he is doing ok. No chest pain. Shortness of breath stable. Slight improvement in edema. 09/08 No complaints of chest pain, shortness of breath is stable. Blood pressure 100/66, heart rate in the 80s, pulse ox 90% on room air. Patient is maintained on IV Lasix 80 mg every 8 hours. Weights do not appear to be accurate. Patient had a negative fluid balance yesterday of 560 mL. No repeat blood work for today. BMP ordered for tomorrow 09/09 Patient denies having any chest pain. No shortness of breath. Patient was tentatively scheduled for cardiac catheterization. Lab work this morning reveals BUN 39 creatinine 2.26 which appears to be patient's baseline, potassium 3.9. Heart rate 82, blood pressure 93/52, pulse ox 99% on room air. Yesterday, IV Lasix frequency was decreased to twice daily. 09/10 Patient's cardiac catheterization was delayed until today. Repeat lab work reveals BUN 41 creatinine 2.16. Patient denies any chest pain or short of breath. He has been continued on IV Lasix and the morning dose was held. 09/11/2023 Patient is s/p cardiac catherization with Dr. Cheung. Cath revealed three-vessel coronary artery disease with chronic occlusion of the right coronary artery and significant disease involving circumflex coronary arteries and diffuse disease involving the LAD. Patient denies chest pain or pressure. He reports mild SOB. He remains on IV lasix. Vital signs stable. 09/12/2023 Patient examined this morning at the bedside. Patient denies chest pain or pressure. He currently denies shortness of breath. He is laying flat in bed and appears comfortable. He remains on IV diuresis. Patient was also started on dobutamine yesterday. Urine output for the last 24 hours is 1925 cc. 09/13/2023 Patient seen and examined sitting up in bed. Maintained on dobutamine infusion and IV Lasix. Laboratory data reviewed, hemoglobin 10.1, platelets 104, potassium 3.3, creatinine 2.1 and magnesium 1.8. He is maintaining a negative fluid balance for the previous 24 hours and weight is down 2 kg. Blood pressure 108/70 heart rate 85. 09/14/2023 Seen laying flat in bed. He ate breakfast. He is diuresing well on current regimen with 3.2 L out in 24 hours and weight down 3 kg. Blood pressure stable. Potassium low today, will replace and creatinine stable at 2.04. 09/15 Patient has been up to the bathroom and complains of shortness of breath with minimal ambulation. He is however able to lay flat in bed. Patient denies having any chest pain. He is on dobutamine at 5 mics. He is also on Lasix 80 mg IV every 8 hours, metolazone 5 mg daily and midodrine as needed. Repeat blood work reveals BUN of 39 creatinine 2.01. Patient continues to have good urine output with yesterday at a -2470. Weight appears to be down 5 kg from yesterday. Nephrology has continue patient on IV Lasix and dobutamine and stop metolazone, added Farxiga. 09/16 Patient remains on dobutamine drip at 5 mics. He is also on Lasix 80 mg IV every 8 hours. Patient denies having any chest pain, lightheadedness or dizziness. He states he did fine getting up to the bathroom today. Note the metolazone was discontinued by nephrology yesterday. Repeat blood work reveals hemoglobin 10.7, sodium 135, potassium 3.2, BUN 39 creatinine 2. Heart rate is in the 80s, blood pressure 103/65. Pulse ox 97% on room air. Patient has a negative fluid balance yesterday of 4959. Weight is trending down. Patient is continued on a 1500 cc fluid restriction PHYSICAL EXAM: VITAL SIGNS: Reviewed. GENERAL: Well-developed in no acute distress. NECK: Supple. No JVD or thyromegaly LUNGS: Respirations even and unlabored. Lungs diminished bilaterally. HEART: Regular rate and rhythm. S1 and S2 heard. + systolic murmur EXTREMITIES: No clubbing or cyanosis. Peripheral pulses intact. 2+ bilateral lower extremity edema ASSESSMENT: Acute on chronic heart failure with reduced EF, 15-20% Ischemic cardiomyopathy Triple vessel coronary artery disease with chronic occlusion of the right co ronary artery and significant disease involving the circumflex and diffuse disease involving the LAD status post cardiac catheterization 2/ Chronic occlusion of RCA Acute kidney injury Diabetes type 2 Hyperlipidemia Hypertension Marijuana use Moderate right pleural effusion Moderate mitral regurgitation PLAN: Continue current cardiac medications IV Lasix transition to Bumex 2 mg oral twice daily by nephrology and Farxiga 5 mg daily was added BMP in the morning. Daily weights, accurate I&O, and daily weights Will consider Lexiscan in the future when patient is clinically stable. If ischemia in circumflex region, would consider revascularization. May benefit from evaluation at a tertiary care center, can be initiated as an outpatient Further recommendations pending patient course Nurse practitioner note has been reviewed by physician. Signing provider agrees with the documented findings, assessment, and plan of care documented by LIVESTOCK JUDGING COACH as a scribe. Objective - Vital Signs Vital signs: Vital Signs Temp 96.7 F L 09/16/23 08:07 Pulse 88 09/16/23 08:07 Resp 16 09/16/23 08:07 BP 124/90 09/16/23 08:07 Pulse Ox 96 09/16/23 08:07 FiO2 Intake & Output 09/15/23 09/16/23 09/16/23 18:59 06:59 18:59 Intake Total 730 233.063 Output Total 1750 3400 Balance -1020 -3166.937 Weight 97.6 kg Intake: Intake, IV Titration 250 233.063 Amount DOBUTamine DRIP 500 mg In 250 233.063 Dextrose/Water 1 250ml. bag @ 5 MCG/KG/MIN 16.95 mls/hr IV .[id number] [facility] Rx #:[id number] Oral 480 Output: Urine 1750 3400 Stool 0 Other: Voiding Method Indwelling Catheter Indwelling Catheter - Labs CBC & Chem 7: 09/16/23 08:31 09/16/23 08:31 Labs: Abnormal Lab Results - Last 24 Hours (Table) 09/15/23 09/15/23 09/16/23 Range/Units 11:45 20:42 08:31 RBC 3.99 L (4.30-5.90) m/uL Hgb 10.7 L (13.0-17.5) gm/dL Hct 33.2 L (39.0-53.0) % RDW 16.1 H (11.5-15.5) % Plt Count 131 L (150-450) k/uL POC Glucose (mg/dL) 121 H 118 H (70-110) mg/dL
[2023-09-16 16:39] LABS: Glucose,Whole Blood 83 mg/dL (70-110)
[2023-09-16] MEDS: BUMETANIDE 1 MG TAB PO SCH (17:08)
[2023-09-16 19:38] LABS: Glucose,Whole Blood 105 mg/dL (70-110)
[2023-09-17 06:08] LABS: Glucose,Whole Blood 92 mg/dL (70-110)
[2023-09-17 09:33] LABS: African American GFR (CKD) 41 (>60 ml/min/1.73 sqM); Blood Urea Nitrogen 37 mg/dL (9-20); Calcium 9.7 mg/dL (8.4-10.2); Chloride 82 mmol/L (98-107); Glucose 83 mg/dL (74-99); Magnesium 1.9 mg/dL (1.6-2.3); Non-African American GFR(CKD) 36 (>60 ml/min/1.73 sqM); Potassium 3.1 mmol/L (3.5-5.1); Sodium 133 mmol/L (137-145)
[2023-09-17 09:40] LABS: Anion Gap 12 mmol/L; Carbon Dioxide 39 mmol/L (22-30)
[2023-09-17] MEDS: POTASSIUM CHLORIDE ER 20 MEQ TAB.ER PO SCH (11:20)
[2023-09-17 11:56] LABS: Glucose,Whole Blood 133 mg/dL (70-110)
--- NOTE | 2023-09-17 12:08 | P.PN ---
Subjective Progress Note Date: 09/17/23 58-year-old male with significant past medical history diabetes type 2 since age 45, asthma, hypertension, hyperlipidemia and more recently acute systolic heart failure who presents for worsening edema and shortness of breath. He has previously seen Dr. Mccartney. He was recently admitted a few weeks ago and found to have severe LV systolic dysfunction with EF of 15-20%. Denies any prior history of heart failure. He reports that he has been having issues with swelling in his lower extremities for the past couple months. He does currently have his LifeVest on. He does report having a significant family history of heart disease however is unable to recall who had what. He is trying to cut back on smoking marijuana. His main complaint is scrotal swelling and constipation. This is very uncomfortable and is he is unable to perform his normal activities at home. Chest x-ray shows mild/moderate CHF, with enlarging moderate sized right pleural effusion. Labs reviewed: WBC of 3.3, hemoglobin 11.3, platelet count of 145, sodium 138, potassium 4.4, BUN of 34, creatinine 2.26, BNP 15293. Last echocardiogram 08/12/2023 with a EF 15-20%, moderate mitral regurgitation and tricuspid regurgitation.Cardiology recommending to continue Lasix to 80 mg 3 times daily. Monitor kidney function. Continue with LifeVest. Lambda and kappa light chains- PENDING. Will consider right heart cath on Friday to measure pressures, concern for possible end stage heart failure. We will follow. NPO after midnight. 09/08/2023 Patient sitting up in bed. Awake and oriented and breathing quietly on room air He has 2+ bilateral patellar like edema Compression from exertional dyspnea Remains on IV Solu-Medrol 80 mg twice daily today. Ejection fraction 20-25% with moderate to severe mitral regurgitation Plan for cardiac cath tomorrow morning. Creatinine is stable about 2.3 He has mild pancytopenia with B12 and folate level acceptable 09/09/2023 Patient breathing is stable. He is on room air. His with no shortness of breath at rest, no orthopnea Has minimal leg edema and minimal basilar crepitation He is on IV Lasix 80 mg twice daily with good urine output He is getting normal saline 50 mL/h per day because he is going for cardiac cath with cartilage team. This mild pancytopenia is stable 09/10/2023 Patient awake at baseline, no dyspnea Has significant bilateral leg swelling and anasarca Blood pressure is borderline but patient is as symptomatic as average urine output Normal saline 50 mL was used up today and resume his IV Lasix 80 mg twice daily Creatinine 2.1 Patient also underwent cardiac cath today He is placed on Coreg 3.125, Imdur 30 mg, aspirin 81 mg Also patient has mildly elevated I light chain with level more than 4 times the reference range before going to consult hematology team 09/11/2023 Patient awake alert, still with significant anasarca with no specific complaints He status post cardiac cath yesterday showing severe triple vessel coronary artery disease with chronically occluded right coronary arteries and significant disease involving the left circumflex and extensive disease of the LAD. Patient placed on aspirin 81 mg and Lipitor by lobby porter and was started on dobutamine drip while he remains on IV Lasix 80 mg twice daily, creatinine 2.1 which is stable. Plan to repeat a Lexiscan stress test to see if he will require stents to left circumflex artery. Motility team also following the patient closely for mild pancytopenia and elevated light chain, bone survey and serology workup is ordered by hematology were R following closely Patient feels a little depressed and he says he was on Cymbalta 60 mg daily and he wanted back. No suicidal ideation 09/12/2023 No chest pain, no dyspnea Awake and alert at baseline Reed catheter and the place. Currently he is receiving dobutamine drip at 5 g per KG per minutes Also has an IV Lasix 80 mg twice daily He is on aspirin 81 mg Lipitor and Coreg Cardiac cath done yesterday showing severe triple vessel coronary artery disease and he might require Lexiscan stress test to check for reversible ischemia and need for stents or no. Side Framer team on the case with workup undergoing for hyperproteinemia with elevated I light chain. X-ray bone survey is pending as well as serologic workup 09/13/2023 Patient is a stain in bed, mild tachypnea but severe anasarca He remains on dobutamine drip, IV diuretics Lasix and metolazone Also he is on midodrine scheduled dose starting today Low potassium replaced. Creatinine stable at 2.1 09/14/2023 Patient is making good urine outpatient and he looks like he lost some weight Patient continued on IV Lasix and dose increased to 80 mg 3 times a day He remains on dobutamine Patient was counseled about fluid restriction and he agrees He still has constipation and lactulose 30 mg twice daily was added today 09/15/23: Dr Erickson resumed care And seen and evaluated bedside, patient complaining of loose stool, encourage use of yogurt, patient had bowel movement was initially constipated and was given lactulose, will discontinue lactulose Blood work reviewed WBC 3.5 hemoglobin 9.9 platelet count 126. Serum chemistry sodium 134 potassium 3.5 carbon dioxide 34 BUN 39 creatinine 2.01 09/16/2023: Patient seen and evaluated bedside, potassium replaced, renal function noted, creatinine trending down around 2 now, potassium 3.2. Appreciate input from hematology. Etiology for pancytopenia likely secondary to underlying comorbidities. [place] and lambda proteins reviewed. Nephrology following continue patient on dobutamine drip 09/17/2023: Patient seen and evaluated bedside, patient weaned off dobutamine drip, continue patient on oral diuretic receiving Bumex. Plan to discharge home in next 24 hours potassium replacement given follow-up on renal profile GENERAL: The patient is alert and oriented x3, ill appearance, pale appearance HEENT: Pupils are round and equally reacting to light. EOMI. CARDIOVASCULAR: S1 and S2 present. No murmurs, rubs, or gallops. PULMONARY: Chest is clear to auscultation, no wheezing , no crackles. ABDOMEN: Soft, nontender, nondistended, normoactive bowel sounds. MUSCULOSKELETAL: No joint swelling or deformity. EXTREMITIES: No cyanosis, clubbing, bilateral pitting leg NEUROLOGICAL: Gross neurological examination did not reveal any focal deficits. SKIN: No rashes. no petechiae. Objective - Vital Signs Vital signs: Vital Signs Temp 98.4 F 09/17/23 11:23 Pulse 81 09/17/23 11:23 Resp 16 09/17/23 11:23 BP 97/65 09/17/23 11:23 Pulse Ox 94 L 09/17/23 11:23 FiO2 Intake & Output 09/16/23 09/17/23 09/17/23 18:59 06:59 18:59 Intake Total 600 350 180 Output Total 2200 4100 Balance -1600 -3750 180 Weight 56 kg 95 kg Intake: Intake, IV Titration 250 Amount DOBUTamine DRIP 500 mg In 250 Dextrose/Water 1 250ml. bag @ 2.5 MCG/KG/MIN 8. 475 mls/hr IV .Q24H [facility] Rx#:[id number] Oral 600 100 180 Output: Urine 2200 4100 Other: Voiding Method Indwelling Catheter Indwelling Catheter Indwelling Catheter - Labs CBC & Chem 7: 09/16/23 08:31 09/17/23 07:44 Labs: Abnormal Lab Results - Last 24 Hours (Table) 09/17/23 09/17/23 Range/Units 07:44 11:55 Sodium 133 L (137-145) mmol/L Potassium 3.1 L (3.5-5.1) mmol/L Chloride 82 L (98-107) mmol/L Carbon Dioxide 39 H (22-30) mmol/L BUN 37 H (9-20) mg/dL Creatinine 2.02 H (0.66-1.25) mg/dL POC Glucose (mg/dL) 133 H (70-110) mg/dL Assessment and Plan Assessment: Assessment and plan * Acute and chronic systolic congestive heart failure with ejection fraction 20- 25%, status post LifeVest * ischemic cardiomyopathy with cardiac cath showed severe triple-vessel coronary artery disease * Chronic kidney disease stage III with acute kidney injury secondary to cardiorenal syndrome * Mild pancytopenia, Elevated light kappa chain * Hypertension * Hyperlipidemia * Diabetes mellitus * BPH * Pancytopenia * In regards to congestive heart failure, continue patient on diuresis, discontinue dobutamine, transition from IV Lasix to oral Bumex * In regards to cardiomyopathy, dobutamine drip weaned off, continue Bumex, continue blood pressure support with midodrine continue Imdur * Guards to multivessel coronary artery disease continue aspirin, Lipitor, Coreg * In regards to hypertension continue patient on Coreg * In regards to pancytopenia, patient seen by hematology oncology, recommend outpatient follow-up continue to follow-up on CBC likely secondary to underlying medical comorbidities
--- NOTE | 2023-09-17 12:51 | P.PN ---
Subjective Patient is seen in follow-up for acute kidney injury on chronic kidney disease. Renal function stable. On oral diuretics. Non-oliguric. Denies chest pain or shortness of breath. Vital signs are stable. General: No acute distress. HEENT: Head exam is unremarkable. LUNGS: No audible rhonchi or wheezes. HEART: Rate and Rhythm are regular. ABDOMEN: Nontender. EXTREMITITES: Trace edema. Objective - Vital Signs Vital signs: Vital Signs Temp 98.4 F 09/17/23 11:23 Pulse 81 09/17/23 11:23 Resp 16 09/17/23 11:23 BP 97/65 09/17/23 11:23 Pulse Ox 94 L 09/17/23 11:23 FiO2 Intake & Output 09/16/23 09/17/23 09/17/23 18:59 06:59 18:59 Intake Total 600 350 180 Output Total 2200 4100 Balance -1600 -3750 180 Weight 56 kg 95 kg Intake: Intake, IV Titration 250 Amount DOBUTamine DRIP 500 mg In 250 Dextrose/Water 1 250ml. bag @ 2.5 MCG/KG/MIN 8. 475 mls/hr IV .Q24H [facility] Rx#:[id number] Oral 600 100 180 Output: Urine 2200 4100 Other: Voiding Method Indwelling Catheter Indwelling Catheter Indwelling Catheter - Labs CBC & Chem 7: 09/16/23 08:31 09/17/23 07:44 Labs: Abnormal Lab Results - Last 24 Hours (Table) 09/17/23 09/17/23 Range/Units 07:44 11:55 Sodium 133 L (137-145) mmol/L Potassium 3.1 L (3.5-5.1) mmol/L Chloride 82 L (98-107) mmol/L Carbon Dioxide 39 H (22-30) mmol/L BUN 37 H (9-20) mg/dL Creatinine 2.02 H (0.66-1.25) mg/dL POC Glucose (mg/dL) 133 H (70-110) mg/dL Assessment and Plan Plan: Assessment: 1. Acute kidney injury secondary to ATN secondary to cardiorenal syndrome. Creatinine stable at 2.02 today. 2. Acute on chronic systolic CHF with ejection fraction of 15 to 20%. 3. Volume overload. Improved with diuresis. 4. Hypokalemia from diuresis. 5. Chronic kidney disease stage IIIa with baseline creatinine 1.3-1.5. 6. Elevated free kappa light chains being followed by hematology. 7. Diabetes mellitus. Plan: Maintain oral Bumex 2 mg twice daily. Maintain Farxiga. Replace potassium. Patient refused potassium supplementation earlier but agreeable to take now. Maintain low-salt diet. Maintain 1500 cc fluid restriction. Advised patient to maintain low-salt diet and fluid restriction of less than 50 ounces per day upon discharge. He was also advised to monitor his weight closely at home and to notify physician if develops edema or gains more than 3 pounds in 1 week duration. Follow-up outpatient 1 week postdischarge.
--- NOTE | 2023-09-17 13:26 | P.PN ---
Subjective Progress Note Date: 09/17/23 HISTORY OF PRESENT ILLNESS: Patient is a pleasant 58-year-old male with significant past medical history diabetes type 2 since age 45, asthma, hypertension, hyperlipidemia and more recently acute systolic heart failure who presents for worsening edema and shortness of breath. He has previously seen Dr. Mccartney. He was recently admitted a few weeks ago and found to have severe LV systolic dysfunction with EF of 15- 20%. Denies any prior history of heart failure. He reports that he has been having issues with swelling in his lower extremities for the past couple months. He does currently have his LifeVest on. He does report having a significant family history of heart disease however is unable to recall who had what. He is trying to cut back on smoking marijuana. His main complaint is scrotal swelling and constipation. This is very uncomfortable and is he is unable to perform his normal activities at home. Chest x-ray shows mild/moderate CHF, with enlarging moderate sized right pleural effusion. Labs reviewed: Hemoglobin 11.3, creatinine 2.26, potassium 4.4, BNP 55078. Echocardiogram 08/12/2023 with a EF 15-20%, moderate mitral regurgitation and tricuspid regurgitation. 09/07/23 ECHO with slight improvement of EF to 20-25%, moderate to severe mitral regurgitation. Creat stable at 2.27. He reports having increased stress from family issues and needed a xanax today. Otherwise he is doing ok. No chest pain. Shortness of breath stable. Slight improvement in edema. 09/08 No complaints of chest pain, shortness of breath is stable. Blood pressure 100/66, heart rate in the 80s, pulse ox 90% on room air. Patient is maintained on IV Lasix 80 mg every 8 hours. Weights do not appear to be accurate. Patient had a negative fluid balance yesterday of 560 mL. No repeat blood work for today. BMP ordered for tomorrow 09/09 Patient denies having any chest pain. No shortness of breath. Patient was tentatively scheduled for cardiac catheterization. Lab work this morning reveals BUN 39 creatinine 2.26 which appears to be patient's baseline, potassium 3.9. Heart rate 82, blood pressure 93/52, pulse ox 99% on room air. Yesterday, IV Lasix frequency was decreased to twice daily. 09/10 Patient's cardiac catheterization was delayed until today. Repeat lab work reveals BUN 41 creatinine 2.16. Patient denies any chest pain or short of breath. He has been continued on IV Lasix and the morning dose was held. 09/11/2023 Patient is s/p cardiac catherization with Dr. Cheung. Cath revealed three-vessel coronary artery disease with chronic occlusion of the right coronary artery and significant disease involving circumflex coronary arteries and diffuse disease involving the LAD. Patient denies chest pain or pressure. He reports mild SOB. He remains on IV lasix. Vital signs stable. 09/12/2023 Patient examined this morning at the bedside. Patient denies chest pain or pressure. He currently denies shortness of breath. He is laying flat in bed and appears comfortable. He remains on IV diuresis. Patient was also started on dobutamine yesterday. Urine output for the last 24 hours is 1925 cc. 09/13/2023 Patient seen and examined sitting up in bed. Maintained on dobutamine infusion and IV Lasix. Laboratory data reviewed, hemoglobin 10.1, platelets 104, potassium 3.3, creatinine 2.1 and magnesium 1.8. He is maintaining a negative fluid balance for the previous 24 hours and weight is down 2 kg. Blood pressure 108/70 heart rate 85. 09/14/2023 Seen laying flat in bed. He ate breakfast. He is diuresing well on current regimen with 3.2 L out in 24 hours and weight down 3 kg. Blood pressure stable. Potassium low today, will replace and creatinine stable at 2.04. 09/15 Patient has been up to the bathroom and complains of shortness of breath with minimal ambulation. He is however able to lay flat in bed. Patient denies having any chest pain. He is on dobutamine at 5 mics. He is also on Lasix 80 mg IV every 8 hours, metolazone 5 mg daily and midodrine as needed. Repeat blood work reveals BUN of 39 creatinine 2.01. Patient continues to have good urine output with yesterday at a -2470. Weight appears to be down 5 kg from yesterday. Nephrology has continue patient on IV Lasix and dobutamine and stop metolazone, added Farxiga. 09/16 Patient remains on dobutamine drip at 5 mics. He is also on Lasix 80 mg IV every 8 hours. Patient denies having any chest pain, lightheadedness or dizziness. He states he did fine getting up to the bathroom today. Note the metolazone was discontinued by nephrology yesterday. Repeat blood work reveals hemoglobin 10.7, sodium 135, potassium 3.2, BUN 39 creatinine 2. Heart rate is in the 80s, blood pressure 103/65. Pulse ox 97% on room air. Patient has a negative fluid balance yesterday of 4959. Weight is trending down. Patient is continued on a 1500 cc fluid restriction 09/17 Patient denies any new complaints today. Breathing status seems to be stable. He has LifeVest in place. He has been maintained on dobutamine drip which will be discontinued today. Yesterday IV Lasix was changed to oral Bumex by nephrology. Blood pressure 97/65, heart rate in the 80s, pulse ox 94% on room air. Repeat blood work reveals sodium 133, potassium 3.1, chloride 82, CO2 39, BUN 27 creatinine 2.02. Potassium has been replaced. PHYSICAL EXAM: VITAL SIGNS: Reviewed. GENERAL: Well-developed in no acute distress. NECK: Supple. No JVD or thyromegaly LUNGS: Respirations even and unlabored. Lungs diminished bilaterally. HEART: Regular rate and rhythm. S1 and S2 heard. + systolic murmur EXTREMITIES: No clubbing or cyanosis. Peripheral pulses intact. 2+ bilateral lower extremity edema ASSESSMENT: Acute on chronic heart failure with reduced EF, 15-20% Ischemic cardiomyopathy Triple vessel coronary artery disease with chronic occlusion of the right coronary artery and significant disease involving the circumflex and diffuse disease involving the LAD status post cardiac catheterization 09/10 Chronic occlusion of RCA Acute kidney injury Diabetes type 2 Hyperlipidemia Hypertension Marijuana use Moderate right pleural effusion Moderate mitral regurgitation PLAN: Continue current cardiac medications Patient is cleared for discharge from cardiology and may follow-up in the office in 1 to 2 weeks. Nurse practitioner note has been reviewed by physician. Signing provider agrees with the documented findings, assessment, and plan of care documented by CUTTER MACHINE as a scribe. Objective - Vital Signs Vital signs: Vital Signs Temp 98.2 F 09/17/23 07:42 Pulse 85 09/17/23 07:42 Resp 18 09/17/23 07:42 BP 104/65 09/17/23 07:42 Pulse Ox 93 L 09/17/23 07:42 FiO2 Intake & Output 09/16/23 09/17/23 09/17/23 18:59 06:59 18:59 Intake Total 600 350 180 Output Total 2200 4100 Balance -1600 -3750 180 Weight 56 kg 95 kg Intake: Intake, IV Titration 250 Amount DOBUTamine DRIP 500 mg In 250 Dextrose/Water 1 250ml. bag @ 2.5 MCG/KG/MIN 8. 475 mls/hr IV .Q24H [facility] Rx#:[id number] Oral 600 100 180 Output: Urine 2200 4100 Other: Voiding Method Indwelling Catheter Indwelling Catheter Indwelling Catheter - Labs CBC & Chem 7: 09/16/23 08:31 09/17/23 07:44 Labs: Abnormal Lab Results - Last 24 Hours (Table) 09/16/23 Range/Units 08:31 Sodium 135 L (137-145) mmol/L Potassium 3.2 L (3.5-5.1) mmol/L Chloride 87 L (98-107) mmol/L Carbon Dioxide 39 H (22-30) mmol/L BUN 39 H (9-20) mg/dL Creatinine 2.00 H (0.66-1.25) mg/dL
[2023-09-17 16:30] LABS: Glucose,Whole Blood 133 mg/dL (70-110)
[2023-09-17 20:19] LABS: Glucose,Whole Blood 136 mg/dL (70-110)
[2023-09-18 06:14] LABS: Glucose,Whole Blood 96 mg/dL (70-110)
--- NOTE | 2023-09-18 10:31 | P.PN ---
Subjective Patient is seen in follow-up for acute kidney injury on chronic kidney disease. Renal function stable. On oral diuretics. Nonoliguric. Denies chest pain or shortness of breath. Vital signs are stable. General: No acute distress. HEENT: Head exam is unremarkable. LUNGS: No audible rhonchi or wheezes. HEART: Rate and Rhythm are regular. ABDOMEN: Nontender. EXTREMITITES: Trace edema. Objective - Vital Signs Vital signs: Vital Signs Temp 98.2 F 09/18/23 07:22 Pulse 83 09/18/23 07:22 Resp 18 09/18/23 07:22 BP 100/63 09/18/23 10:07 Pulse Ox 94 L 09/18/23 07:22 FiO2 Intake & Output 09/17/23 09/18/23 09/18/23 18:59 06:59 18:59 Intake Total 180 0 Output Total 1000 400 300 Balance -820 -400 -300 Weight 95 kg 90 kg Intake: Oral 180 0 Output: Urine 1000 400 300 Uretheral (Reed) 300 Stool 0 0 Other: Voiding Method Indwelling Catheter Indwelling Catheter Indwelling Catheter - Labs CBC & Chem 7: 09/16/23 08:31 09/17/23 07:44 Labs: Abnormal Lab Results - Last 24 Hours (Table) 09/17/23 09/17/23 09/17/23 Range/Units 11:55 16:28 20:17 POC Glucose (mg/dL) 133 H 133 H 136 H (70-110) mg/dL Assessment and Plan Plan: Assessment: 1. Acute kidney injury secondary to ATN secondary to cardiorenal syndrome. Creatinine stable at 2.02 yesterday. 2. Acute on chronic systolic CHF with ejection fraction of 15 to 20%. 3. Volume overload. Improved with diuresis. 4. Hypokalemia from diuresis. Replaced. 5. Chronic kidney disease stage IIIa with baseline creatinine 1.3-1.5. 6. Elevated free kappa light chains being followed by hematology. 7. Diabetes mellitus. Plan: Maintain oral Bumex 2 mg twice daily. Maintain Farxiga. Maintain low-salt diet. Maintain 1500 cc fluid restriction. Advised patient to maintain low-salt diet and fluid restriction of less than 50 ounces per day upon discharge. He was also advised to monitor his weight closely at home and to notify physician if develops edema or gains more than 3 pounds in 1 week duration. Follow-up outpatient 1 week postdischarge. Repeat BMP and magnesium level 2 to 3 days postdischarge.
[2023-09-18 11:05] LABS: African American GFR (CKD) 36 (>60 ml/min/1.73 sqM); Blood Urea Nitrogen 41 mg/dL (9-20); Calcium 9.6 mg/dL (8.4-10.2); Chloride 82 mmol/L (98-107); Glucose 127 mg/dL (74-99); Magnesium 2.1 mg/dL (1.6-2.3); Non-African American GFR(CKD) 32 (>60 ml/min/1.73 sqM); Potassium 3.5 mmol/L (3.5-5.1); Sodium 133 mmol/L (137-145)
[2023-09-18 11:12] LABS: Anion Gap 13 mmol/L
[2023-09-18 11:23] LABS: Carbon Dioxide 38 mmol/L (22-30)
[2023-09-18 11:40] LABS: Glucose,Whole Blood 135 mg/dL (70-110)
--- NOTE | 2023-09-18 11:53 | P.DS ---
Providers Date of admission: 09/05/23 21:18 Expected date of discharge: 09/18/23 Attending physician: Valencia Cook Consults: 09/05/23 21:15 Consult Physician Routine Consulting Provider: Dayne Rios Consult Reason/Comments: chf Do you want consulting provider notified?: Yes 09/07/23 13:18 Consult Physician Routine Consulting Provider: Sami Coleman Consult Reason/Comments: DONELL Do you want consulting provider notified?: Yes 09/10/23 18:46 Consult Physician Routine Consulting Provider: Servando Turpin Consult Reason/Comments: high kappa chain Do you want consulting provider notified?: Yes, Notify in am Primary care physician: [facility] Course: 58-year-old male with significant past medical history diabetes type 2 since age 45, asthma, hypertension, hyperlipidemia and more recently acute systolic heart failure who presents for worsening edema and shortness of breath. He has previously seen Dr. Mccartney. He was recently admitted a few weeks ago and found to have severe LV systolic dysfunction with EF of 15-20%. Denies any prior history of heart failure. He reports that he has been having issues with swelling in his lower extremities for the past couple months. He does currently have his LifeVest on. He does report having a significant family history of heart disease however is unable to recall who had what. He is trying to cut back on smoking marijuana. His main complaint is scrotal swelling and constipation. This is very uncomfortable and is he is unable to perform his normal activities at home. Chest x-ray shows mild/moderate CHF, with enlarging moderate sized right pleural effusion. Labs reviewed: WBC of 3.3, hemoglobin 11.3, platelet count of 145, sodium 138, potassium 4.4, BUN of 34, creatinine 2.26, BNP 16431. Last echocardiogram 08/12/2023 with a EF 15-20%, moderate mitral regurgitation and tricuspid regurgitation.Cardiology recommending to continue Lasix to 80 mg 3 times daily. Monitor kidney function. Continue with LifeVest. Lambda and kappa light chains- PENDING. Will consider right heart cath on Friday to measure pressures, concern for possible end stage heart failure. We will follow. NPO after midnight. 09/08/2023 Patient sitting up in bed. Awake and oriented and breathing quietly on room air He has 2+ bilateral patellar like edema Compression from exertional dyspnea Remains on IV Solu-Medrol 80 mg twice daily today. Ejection fraction 20-25% with moderate to severe mitral regurgitation Plan for cardiac cath tomorrow morning. Creatinine is stable about 2.3 He has mild pancytopenia with B12 and folate level acceptable 09/09/2023 Patient breathing is stable. He is on room air. His with no shortness of breath at rest, no orthopnea Has minimal leg edema and minimal basilar crepitation He is on IV Lasix 80 mg twice daily with good urine output He is getting normal saline 50 mL/h per day because he is going for cardiac cath with cartilage team. This mild pancytopenia is stable 09/10/2023 Patient awake at baseline, no dyspnea Has significant bilateral leg swelling and anasarca Blood pressure is borderline but patient is as symptomatic as average urine output Normal saline 50 mL was used up today and resume his IV Lasix 80 mg twice daily Creatinine 2.1 Patient also underwent cardiac cath today He is placed on Coreg 3.125, Imdur 30 mg, aspirin 81 mg Also patient has mildly elevated I light chain with level more than 4 times the reference range before going to consult hematology team 09/11/2023 Patient awake alert, still with significant anasarca with no specific complaints He status post cardiac cath yesterday showing severe triple vessel coronary artery disease with chronically occluded right coronary arteries and significant disease involving the left circumflex and extensive disease of the LAD. Patient placed on aspirin 81 mg and Lipitor by visual merchandising coordinator and was started on dobutamine drip while he remains on IV Lasix 80 mg twice daily, creatinine 2.1 which is stable. Plan to repeat a Lexiscan stress test to see if he will require stents to left circumflex artery. Motility team also following the patient closely for mild pancytopenia and elevated light chain, bone survey and serology workup is ordered by hematology were R following closely Patient feels a little depressed and he says he was on Cymbalta 60 mg daily and he wanted back. No suicidal ideation 09/12/2023 No chest pain, no dyspnea Awake and alert at baseline Reed catheter and the place. Currently he is receiving dobutamine drip at 5 g per KG per minutes Also has an IV Lasix 80 mg twice daily He is on aspirin 81 mg Lipitor and Coreg Cardiac cath done yesterday showing severe triple vessel coronary artery disease and he might require Lexiscan stress test to check for reversible ischemia and need for stents or no. Occupational Safety And Health Manager team on the case with workup undergoing for hyperproteinemia with elevated I light chain. X-ray bone survey is pending as well as serologic workup 09/13/2023 Patient is a stain in bed, mild tachypnea but severe anasarca He remains on dobutamine drip, IV diuretics Lasix and metolazone Also he is on midodrine scheduled dose starting today Low potassium replaced. Creatinine stable at 2.1 09/14/2023 Patient is making good urine outpatient and he looks like he lost some weight Patient continued on IV Lasix and dose increased to 80 mg 3 times a day He remains on dobutamine Patient was counseled about fluid restriction and he agrees He still has constipation and lactulose 30 mg twice daily was added today 09/15/23: Dr Erickson resumed care And seen and evaluated bedside, patient complaining of loose stool, encourage use of yogurt, patient had bowel movement was initially constipated and was given lactulose, will discontinue lactulose Blood work reviewed WBC 3.5 hemoglobin 9.9 platelet count 126. Serum chemistry sodium 134 potassium 3.5 carbon dioxide 34 BUN 39 creatinine 2.01 09/16/2023: Patient seen and evaluated bedside, potassium replaced, renal function noted, creatinine trending down around 2 now, potassium 3.2. Appreciate input from hematology. Etiology for pancytopenia likely secondary to underlying comorbidities. [place] and lambda proteins reviewed. Nephrology following continue patient on dobutamine drip 09/17/2023: Patient seen and evaluated bedside, patient weaned off dobutamine drip, continue patient on oral diuretic receiving Bumex. Plan to discharge home in next 24 hours potassium replacement given follow-up on renal profile 09/18/2023: Patient seen and evaluated bedside, patient has been weaned off dobutamine drip, transition to oral Bumex, Reed catheter has been removed, plan to discharge home, outpatient follow-up with cardiology and primary care physician recommended instructions provided prescription sent to [facility] pharmacy. Bumex along with potassium supplementation given patient already has home medications which would include Coreg and midodrine which were home medications. GENERAL: The patient is alert and oriented x3, chronically ill appearance, pale appearance HEENT: Pupils are round and equally reacting to light. EOMI. CARDIOVASCULAR: S1 and S2 present. No murmurs, rubs, or gallops. PULMONARY: Chest is clear to auscultation, no wheezing , no crackles. ABDOMEN: Soft, nontender, nondistended, normoactive bowel sounds. MUSCULOSKELETAL: No joint swelling or deformity. EXTREMITIES: No cyanosis, clubbing, bilateral pitting leg NEUROLOGICAL: Gross neurological examination did not reveal any focal deficits. SKIN: No rashes. no petechiae. Assessment and plan * Acute and chronic systolic congestive heart failure with ejection fraction 20- 25%, status post LifeVest * ischemic cardiomyopathy with cardiac cath showed severe triple-vessel coronary artery disease * Chronic kidney disease stage III with acute kidney injury secondary to cardiorenal syndrome * Mild pancytopenia, Elevated light kappa chain IMPROVED * Hypertension * Hyperlipidemia * Diabetes mellitus * BPH * Pancytopenia IMPROVED * In regards to congestive heart failure, continue patient on diuresis, di scontinue dobutamine, transition from IV Lasix to oral Bumex, continue midodrine and Coreg * In regards to cardiomyopathy, dobutamine drip weaned off, continue Bumex, continue blood pressure support with midodrine continue Imdur * Guards to multivessel coronary artery disease continue aspirin, Lipitor, Coreg * In regards to hypertension continue patient on Coreg * In regards to pancytopenia, patient seen by hematology oncology, recommend outpatient follow-up continue to follow-up on CBC likely secondary to underlying medical comorbidities * Patient follow-up with PCP Patient Condition at Discharge: Fair Plan - Discharge Summary New Discharge Prescriptions: New Aspirin 81 mg PO DAILY 30 Days #30 tab Potassium Chloride ER [K-Dur 20] 20 meq PO DAILY 30 Days #30 tab Bumetanide [BUMEX] 2 mg PO BID@0900,1600 30 Days #60 tab DULoxetine HCL [Cymbalta] 60 mg PO DAILY 30 Days #30 cap Dapagliflozin Propanediol [Farxiga] 5 mg PO DAILY 30 Days #30 tab Continue Simvastatin [Zocor] 20 mg PO DAILY Dulaglutide [Trulicity] 1.5 mg SQ FR Tamsulosin HCl [Flomax] 0.4 mg PO DAILY Albuterol Sulfate [Albuterol Sulfate Hfa] 2 puff PO RT-Q6H PRN PRN Reason: Shortness Of Breath Midodrine [ProAmatine] 5 mg PO AC-TID PRN #60 tab PRN Reason: SBP < 90 carvediloL [Coreg] 3.125 mg PO BID-W/MEALS 30 Days #60 tab polyethylene glycoL 3350 [Miralax] 17 gm PO DAILY PRN packet PRN Reason: Constipation Nystatin 100,000 Unit/gm Powd [Mycostatin Powder] 1 applic TOPICAL BID #1 each ALPRAZolam [Xanax] 0.25 mg PO TID PRN #6 tab PRN Reason: Anxiety Discontinued Bumetanide [BUMEX] 1 mg PO DIRECTED Discharge Medication List Dulaglutide [Trulicity] 1.5 mg SQ FR 02/19/23 [History] Simvastatin [Zocor] 20 mg PO DAILY 02/19/23 [History] Albuterol Sulfate [Albuterol Sulfate Hfa] 2 puff PO RT-Q6H PRN 08/11/23 [Histo ry] Tamsulosin HCl [Flomax] 0.4 mg PO DAILY 08/11/23 [History] ALPRAZolam [Xanax] 0.25 mg PO TID PRN #6 tab 08/21/23 [Rx] Midodrine [ProAmatine] 5 mg PO AC-TID PRN #60 tab 08/21/23 [Rx] Nystatin 100,000 Unit/gm Powd [Mycostatin Powder] 1 applic TOPICAL BID #1 each 08/21/23 [Rx] carvediloL [Coreg] 3.125 mg PO BID-W/MEALS 30 Days #60 tab 08/21/23 [Rx] polyethylene glycoL 3350 [Miralax] 17 gm PO DAILY PRN packet 08/21/23 [Rx] Aspirin 81 mg PO DAILY 30 Days #30 tab 09/18/23 [Rx] Bumetanide [BUMEX] 2 mg PO BID@0900,1600 30 Days #60 tab 09/18/23 [Rx] DULoxetine HCL [Cymbalta] 60 mg PO DAILY 30 Days #30 cap 09/18/23 [Rx] Dapagliflozin Propanediol [Farxiga] 5 mg PO DAILY 30 Days #30 tab 09/18/23 [Rx] Potassium Chloride ER [K-Dur 20] 20 meq PO DAILY 30 Days #30 tab 09/18/23 [Rx] Follow up Appointment(s)/Referral(s): [facility] [Provider Group] - 1 Week [facility], [NON-STAFF] - 1 Week Patricio Banuelos DO [Primary Care Provider] - 1-2 days (Get your basic metabolic panel and magnesium levels checked in 2 to 3 days) Activity/Diet/Wound Care/Special Instructions: Maintain low-salt diet Maintain 1500 mL fluid restriction Follow-up with PCP and get a CBC and basic metabolic panel and magnesium levels in 3 days Follow-up with cardiology postdischarge Monitor your weight at home if more than 3 pound weight gain noted notify your primary care provider or visual merchandising coordinator Discharge Disposition: HOME WITH HOME HEALTH SERVICES
[2023-09-18] MEDS: MIDODRINE 5 MG TAB PO PRN (12:20)
--- NOTE | 2023-09-18 13:24 | P.PN ---
Subjective Progress Note Date: 09/18/23 HISTORY OF PRESENT ILLNESS: Patient is a pleasant 58-year-old male with significant past medical history diabetes type 2 since age 45, asthma, hypertension, hyperlipidemia and more recently acute systolic heart failure who presents for worsening edema and shortness of breath. He has previously seen Dr. Cheung. He was recently admitted a few weeks ago and found to have severe LV systolic dysfunction with EF of 15-20%. Denies any prior history of heart failure. He reports that he has been having issues with swelling in his lower extremities for the past couple months. He does currently have his LifeVest on. He does report having a significant family history of heart disease however is unable to recall who had what. He is trying to cut back on smoking marijuana. His main complaint is scrotal swelling and constipation. This is very uncomfortable and is he is unable to perform his normal activities at home. Chest x-ray shows mild/moderate CHF, with enlarging moderate sized right pleural effusion. Labs reviewed: Hemoglobin 11.3, creatinine 2.26, potassium 4.4, BNP 92671. Echocardiogram 08/12/2023 with a EF 15-20%, moderate mitral regurgitation and tricuspid regurgitation. 09/07/23 ECHO with slight improvement of EF to 20-25%, moderate to severe mitral regurgitation. Creat stable at 2.27. He reports having increased stress from family issues and needed a xanax today. Otherwise he is doing ok. No chest pain. Shortness of breath stable. Slight improvement in edema. 09/08 No complaints of chest pain, shortness of breath is stable. Blood pressure 100/66, heart rate in the 80s, pulse ox 90% on room air. Patient is maintained on IV Lasix 80 mg every 8 hours. Weights do not appear to be accurate. Patient had a negative fluid balance yesterday of 560 mL. No repeat blood work for today. BMP ordered for tomorrow 09/09 Patient denies having any chest pain. No shortness of breath. Patient was tentatively scheduled for cardiac catheterization. Lab work this morning reveals BUN 39 creatinine 2.26 which appears to be patient's baseline, potassium 3.9. Heart rate 82, blood pressure 93/52, pulse ox 99% on room air. Yesterday, IV Lasix frequency was decreased to twice daily. 09/10 Patient's cardiac catheterization was delayed until today. Repeat lab work reveals BUN 41 creatinine 2.16. Patient denies any chest pain or short of breath. He has been continued on IV Lasix and the morning dose was held. 09/11/2023 Patient is s/p cardiac catherization with Dr. Cheung. Cath revealed three-vessel coronary artery disease with chronic occlusion of the right coronary artery and significant disease involving circumflex coronary arteries and diffuse disease involving the LAD. Patient denies chest pain or pressure. He reports mild SOB. He remains on IV lasix. Vital signs stable. 09/12/2023 Patient examined this morning at the bedside. Patient denies chest pain or pressure. He currently denies shortness of breath. He is laying flat in bed and appears comfortable. He remains on IV diuresis. Patient was also started on dobutamine yesterday. Urine output for the last 24 hours is 1925 cc. 09/13/2023 Patient seen and examined sitting up in bed. Maintained on dobutamine infusion and IV Lasix. Laboratory data reviewed, hemoglobin 10.1, platelets 104, potassium 3.3, creatinine 2.1 and magnesium 1.8. He is maintaining a negative fluid balance for the previous 24 hours and weight is down 2 kg. Blood pressure 108/70 heart rate 85. 09/14/2023 Seen laying flat in bed. He ate breakfast. He is diuresing well on current regimen with 3.2 L out in 24 hours and weight down 3 kg. Blood pressure stable. Potassium low today, will replace and creatinine stable at 2.04. 09/15 Patient has been up to the bathroom and complains of shortness of breath with minimal ambulation. He is however able to lay flat in bed. Patient denies having any chest pain. He is on dobutamine at 5 mics. He is also on Lasix 80 mg IV every 8 hours, metolazone 5 mg daily and midodrine as needed. Repeat blood work reveals BUN of 39 creatinine 2.01. Patient continues to have good urine output with yesterday at a -2470. Weight appears to be down 5 kg from yesterday. Nephrology has continue patient on IV Lasix and dobutamine and stop metolazone, added Farxiga. 09/16 Patient remains on dobutamine drip at 5 mics. He is also on Lasix 80 mg IV every 8 hours. Patient denies having any chest pain, lightheadedness or dizziness. He states he did fine getting up to the bathroom today. Note the metolazone was discontinued by nephrology yesterday. Repeat blood work reveals hemoglobin 10.7, sodium 135, potassium 3.2, BUN 39 creatinine 2. Heart rate is in the 80s, blood pressure 103/65. Pulse ox 97% on room air. Patient has a negative fluid balance yesterday of 4959. Weight is trending down. Patient is continued on a 1500 cc fluid restriction 09/17 Patient denies any new complaints today. Breathing status seems to be stable. He has LifeVest in place. He has been maintained on dobutamine drip which will be discontinued today. Yesterday IV Lasix was changed to oral Bumex by nephrology. Blood pressure 97/65, heart rate in the 80s, pulse ox 94% on room air. Repeat blood work reveals sodium 133, potassium 3.1, chloride 82, CO2 39, BUN 27 creatinine 2.02. Potassium has been replaced. 09/18 Patient was prepared for discharge yesterday but there is no difficulty with his discharge planning as he apparently has no running water at home. Reed catheter was removed this morning. Blood pressures are on the soft side and Imdur will be discontinued. Patient has no new concerns. Breathing status seems to be stable. Blood pressure 89/53, heart rate 79, pulse ox 94% on room air. Repeat blood work reveals sodium 133, potassium 3.5, BUN 41 creatinine 2.24. PHYSICAL EXAM: VITAL SIGNS: Reviewed. GENERAL: Well-developed in no acute distress. NECK: Supple. No JVD or thyromegaly LUNGS: Respirations even and unlabored. Lungs diminished bilaterally. HEART: Regular rate and rhythm. S1 and S2 heard. + systolic murmur EXTREMITIES: No clubbing or cyanosis. Peripheral pulses intact. 2+ bilateral lower extremity edema ASSESSMENT: Acute on chronic heart failure with reduced EF, 15-20% Ischemic cardiomyopathy Triple vessel coronary artery disease with chronic occlusion of the right coronary artery and significant disease involving the circumflex and diffuse disease involving the LAD status post cardiac catheterization 09/10 Chronic occlusion of RCA Acute kidney injury Diabetes type 2 Hyperlipidemia Hypertension Marijuana use Moderate right pleural effusion Moderate mitral regurgitation PLAN: Continue current cardiac medications Discontinue Imdur Patient is cleared for discharge from cardiology and may follow-up in the office in 1 to 2 weeks. Nurse practitioner note has been reviewed by physician. Signing provider agrees with the documented findings, assessment, and plan of care documented by SALES DATA ANALYST as a scribe. Objective - Vital Signs Vital signs: Vital Signs Temp 98.2 F 09/18/23 07:22 Pulse 83 09/18/23 07:22 Resp 18 09/18/23 07:22 BP 100/63 09/18/23 10:07 Pulse Ox 94 L 09/18/23 07:22 FiO2 Intake & Output 09/17/23 09/18/23 09/18/23 18:59 06:59 18:59 Intake Total 180 0 Output Total 1000 400 300 Balance -820 -400 -300 Weight 95 kg 90 kg Intake: Oral 180 0 Output: Urine 1000 400 300 Uretheral (Reed) 300 Stool 0 0 Other: Voiding Method Indwelling Catheter Indwelling Catheter Indwelling Catheter - Labs CBC & Chem 7: 09/16/23 08:31 09/18/23 09:14 Labs: Abnormal Lab Results - Last 24 Hours (Table) 09/17/23 09/17/23 09/17/23 Range/Units 11:55 16:28 20:17 POC Glucose (mg/dL) 133 H 133 H 136 H (70-110) mg/dL
[2023-09-18] MEDS: POTASSIUM CHLORIDE ER 20 MEQ TAB.ER PO STA (16:42)
[2023-09-18 16:56] LABS: Glucose,Whole Blood 114 mg/dL (70-110)
--- NOTE | 2023-09-18 17:43 | P.PN ---
Subjective Progress Note Date: 09/18/23 Principal diagnosis: Increased KLC In follow-up today patient has no specific complaints. Denies fevers, SOB, nausea, vomiting, acute changes in bowel or bladder, no new pain to report. Objective - Vital Signs Vital signs: Vital Signs Temp 98.0 F 09/18/23 16:00 Pulse 77 09/18/23 16:00 Resp 18 09/18/23 16:00 BP 100/64 09/18/23 16:00 Pulse Ox 95 09/18/23 16:00 FiO2 Intake & Output 09/17/23 09/18/23 09/18/23 18:59 06:59 18:59 Intake Total 180 0 Output Total 7150 533 7086 Balance -820 -400 -1120 Weight 95 kg 90 kg Intake: Oral 180 0 Output: Urine 1000 400 600 Uretheral (Reed) 300 Post Void Residual 520 Stool 0 0 Other: Voiding Method Indwelling Catheter Indwelling Catheter Urinal - Constitutional General appearance: Present: average body habitus, cooperative, no acute distress - EENT Eyes: Present: anicteric sclerae, EOMI ENT: Present: hearing grossly normal - Respiratory Details: Respirations even and unlabored at rest - Cardiovascular Details: Skin warm and dry to the touch - Integumentary Integumentary: Present: pale - Neurologic Neurologic: Present: CNII-XII intact (Grossly) - Psychiatric Psychiatric Comment(s): A & O x 2 - Labs CBC & Chem 7: 09/16/23 08:31 09/18/23 09:14 Labs: Abnormal Lab Results - Last 24 Hours (Table) 09/17/23 09/18/23 09/18/23 Range/Units 20:17 09:14 11:39 Sodium 133 L (137-145) mmol/L Chloride 82 L (98-107) mmol/L Carbon Dioxide 38 H (22-30) mmol/L BUN 41 H (9-20) mg/dL Creatinine 2.24 H (0.66-1.25) mg/dL Glucose 127 H (74-99) mg/dL POC Glucose (mg/dL) 136 H 135 H (70-110) mg/dL 09/18/23 Range/Units 16:54 Sodium (137-145) mmol/L Chloride (98-107) mmol/L Carbon Dioxide (22-30) mmol/L BUN (9-20) mg/dL Creatinine (0.66-1.25) mg/dL Glucose (74-99) mg/dL POC Glucose (mg/dL) 114 H (70-110) mg/dL Assessment and Plan (1) Pancytopenia Current Visit: Yes Status: Acute Priority: Medium Code(s): D61.818 - OTHER PANCYTOPENIA SNOMED Code(s): 727494593 Plan: Pancytopenia, elevated [place] light chain -Pancytopenia stable. No need for transfusions or G-CSF at this time. Possibly secondary to liver and splenic congestion from CHF -Serum Immunofixation and protein electrophoresis are both negative, urine SPEP is neg, no monoclonal paraproteinemia. IgA is low, normal IgG. Beta-2 microglobulin elevated at 7. Nonspecific findings. -Bone survey not completed, it was cancelled several times, never discussed with Hem/Onc -Iron studies from August 2023 showed iron saturation 6.5%, ferritin 91, most consistent with iron deficiency. Will plan for parenteral iron outpt. -Recommendation for follow-up with GI for iron deficient anemia as last colonoscopy was greater than 5 years ago. -Panctopenia likely 2/2 liver and splenic congestion from CHF. -Will continue to follow up, few tests and labs still pending. Not certain exactly how much patient understood what I was explaining to him. We will contact him and his family for follow-up regarding iron deficiency at a later time.
[2023-09-18 19:58] LABS: Glucose,Whole Blood 168 mg/dL (70-110)
[2023-09-19 02:22] VITALS: RESP 18
[2023-09-19 05:59] LABS: Glucose,Whole Blood 131 mg/dL (70-110)
--- NOTE | 2023-09-19 07:37 | P.GSCN ---
History of Present Illness Consult date: 09/19/23 History of present illness: 58 yo male in the hospital for the last two weeks for chf, cad. He has multiple medical illnesses. He has had angiography and stent placement during this hospitalization. He was to be discharged yesterday but when the guzman catheter was removed he was unable to urinate. We were asked to see the patient. He was on tamsulosin prior to admission and remains on this medication. His history is not real reliable. He is somewhat sleepy this morning. He sees Dr. Aceves his primary care. He states the tamsulosin was placed by the hospital. He had retention yesterday but has voided reasonably well overnight. His residual this morning is 300 mL. He is not complaining. Review of Systems All systems: negative - Constitutional Denies fever, Denies weight loss - EENT Eyes: denies blurred vision Ears, nose, mouth and throat: Denies dysphagia - Cardiovascular Denies chest pain, Denies shortness of breath - Respiratory Denies cough, Denies 7 - Gastrointestinal Reports as per HPI - Genitourinary Denies dysuria, Denies hematuria - Integumentary Denies rash, Denies unusual bruising - Neurological Denies headaches, Denies syncope - Hematologic/Lymphatic Denies easy bleeding, Denies easy bruising Past Medical History Past Medical History: Diabetes Mellitus Additional Past Medical History / Comment(s): cataracts History of Any Multi-Drug Resistant Organisms: None Reported Past Surgical History: Adenoidectomy Additional Past Surgical History / Comment(s): right great and 2nd toe a mputation Past Anesthesia/Blood Transfusion Reactions: No Reported Reaction Past Psychological History: Depression Smoking Status: Vaper Past Alcohol Use History: None Reported, Occasional Past Drug Use History: Marijuana Medications and Allergies Home Medications Medication Instructions Recorded Confirmed Type Dulaglutide [Trulicity] 1.5 mg SQ FR 02/19/23 09/06/23 History Simvastatin [Zocor] 20 mg PO DAILY 02/19/23 09/06/23 History Albuterol Sulfate [Albuterol 2 puff PO RT-Q6H PRN 08/11/23 09/06/23 History Sulfate Hfa] Tamsulosin HCl [Flomax] 0.4 mg PO DAILY 08/11/23 09/06/23 History ALPRAZolam [Xanax] 0.25 mg PO TID PRN #6 tab 08/21/23 09/06/23 Rx Midodrine [ProAmatine] 5 mg PO AC-TID PRN #60 tab 08/21/23 09/06/23 Rx Nystatin 100,000 Unit/gm Powd 1 applic TOPICAL BID #1 each 08/21/23 09/06/23 Rx [Mycostatin Powder] carvediloL [Coreg] 3.125 mg PO BID-W/MEALS 30 Days 08/21/23 09/06/23 Rx #60 tab polyethylene glycoL 3350 [Miralax] 17 gm PO DAILY PRN packet 08/21/23 09/06/23 Rx Aspirin 81 mg PO DAILY 30 Days #30 tab 09/18/23 Rx DULoxetine HCL [Cymbalta] 60 mg PO DAILY 30 Days #30 cap 09/18/23 Rx Dapagliflozin Propanediol [Farxiga] 5 mg PO DAILY 30 Days #30 tab 09/18/23 Rx Furosemide [Lasix] 80 mg PO BID #180 tablet 09/18/23 Rx Potassium Chloride ER [K-Dur 20] 20 meq PO DAILY 30 Days #30 tab 09/18/23 Rx Allergies Allergy/AdvReac Type Severity Reaction Status Date / Time Penicillins Allergy Rash/Hives Verified 09/06/23 12:51 Sulfa (Sulfonamide Allergy Rash/Hives Verified 09/06/23 12:51 Antibiotics) indomethacin AdvReac Unknown Verified 09/06/23 12:51 potassium chloride AdvReac Unknown Verified 09/06/23 12:51 Surgical - Exam Vital Signs Temp Pulse Resp BP Pulse Ox 98.7 F 100 18 110/76 99 09/05/23 17:07 09/05/23 17:07 09/05/23 17:07 09/05/23 17:07 09/05/23 17:07 - General well developed, well nourished - ENT no hearing loss - Neck trachea midline - Respiratory normal expansion - Cardiovascular Rhythm: regular - Abdomen Abdomen: soft, non tender - Genitourinary normal penis with no external lesions, testicles present - Neurologic normal sensation - Musculoskeletal normal posture - Psychiatric oriented to time, oriented to person, oriented to place, speech is normal Results - Labs 09/16/23 08:31 09/18/23 09:14 Abnormal Lab Results - Last 24 Hours (Table) 09/18/23 09/18/23 09/18/23 Range/Units 09:14 11:39 16:54 Sodium 133 L (137-145) mmol/L Chloride 82 L (98-107) mmol/L Carbon Dioxide 38 H (22-30) mmol/L BUN 41 H (9-20) mg/dL Creatinine 2.24 H (0.66-1.25) mg/dL Glucose 127 H (74-99) mg/dL POC Glucose (mg/dL) 135 H 114 H (70-110) mg/dL 09/18/23 09/19/23 Range/Units 19:57 05:57 Sodium (137-145) mmol/L Chloride (98-107) mmol/L Carbon Dioxide (22-30) mmol/L BUN (9-20) mg/dL Creatinine (0.66-1.25) mg/dL Glucose (74-99) mg/dL POC Glucose (mg/dL) 168 H 131 H (70-110) mg/dL Diabetes panel 09/18/23 Range/Units 09:14 Sodium 133 L (137-145) mmol/L Potassium 3.5 (3.5-5.1) mmol/L Chloride 82 L (98-107) mmol/L Carbon Dioxide 38 H (22-30) mmol/L BUN 41 H (9-20) mg/dL Creatinine 2.24 H (0.66-1.25) mg/dL Glucose 127 H (74-99) mg/dL Calcium 9.6 (8.4-10.2) mg/dL Calcium panel 09/18/23 Range/Units 09:14 Calcium 9.6 (8.4-10.2) mg/dL Pituitary panel 09/18/23 Range/Units 09:14 Sodium 133 L (137-145) mmol/L Potassium 3.5 (3.5-5.1) mmol/L Chloride 82 L (98-107) mmol/L Carbon Dioxide 38 H (22-30) mmol/L BUN 41 H (9-20) mg/dL Creatinine 2.24 H (0.66-1.25) mg/dL Glucose 127 H (74-99) mg/dL Calcium 9.6 (8.4-10.2) mg/dL Adrenal panel 09/18/23 Range/Units 09:14 Sodium 133 L (137-145) mmol/L Potassium 3.5 (3.5-5.1) mmol/L Chloride 82 L (98-107) mmol/L Carbon Dioxide 38 H (22-30) mmol/L BUN 41 H (9-20) mg/dL Creatinine 2.24 H (0.66-1.25) mg/dL Glucose 127 H (74-99) mg/dL Calcium 9.6 (8.4-10.2) mg/dL Assessment and Plan Assessment: Impression: Postoperative urinary retention. Preoperative BPH. Multiple medical and cardiac illnesses. Recommendations: The patient is voiding adequately. I would recommend that as long as his residuals remain less than 300 mL he can go home today and he should follow-up in our office in one week. He should continue with the tamsulosin.
[2023-09-19] MEDS: POTASSIUM CHLORIDE ER 20 MEQ TAB.ER PO SCH (09:00)
[2023-09-19 11:55] LABS: Glucose,Whole Blood 101 mg/dL (70-110)
--- NOTE | 2023-09-19 11:59 | P.PN ---
Subjective Patient is seen in follow-up for acute kidney injury on chronic kidney disease. Renal function stable as of yesterday. On oral diuretics. Nonoliguric. Denies chest pain or shortness of breath. Vital signs are stable. General: No acute distress. HEENT: Head exam is unremarkable. LUNGS: No audible rhonchi or wheezes. HEART: Rate and Rhythm are regular. ABDOMEN: Nontender. EXTREMITITES: Trace edema. Objective - Vital Signs Vital signs: Vital Signs Temp 98 F 09/19/23 08:53 Pulse 74 09/19/23 08:53 Resp 18 09/19/23 08:53 BP 89/62 09/19/23 08:53 Pulse Ox 95 09/19/23 08:53 FiO2 Intake & Output 09/18/23 09/19/23 09/19/23 18:59 06:59 18:59 Output Total 1653 775 Balance -1653 -775 Output: Urine 1000 775 Uretheral (Reed) 300 Post Void Residual 653 Stool 0 Other: Voiding Method Urinal Urinal Urinal # Voids 1 - Labs CBC & Chem 7: 09/16/23 08:31 09/18/23 09:14 Labs: Abnormal Lab Results - Last 24 Hours (Table) 09/18/23 09/18/23 09/19/23 Range/Units 16:54 19:57 05:57 POC Glucose (mg/dL) 114 H 168 H 131 H (70-110) mg/dL Assessment and Plan Plan: Assessment: 1. Acute kidney injury secondary to ATN secondary to cardiorenal syndrome. Creatinine stable at 2. 2 4 yesterday. Reed catheter removed September 18, 2023. Has been voiding on his own. 2. Acute on chronic systolic CHF with ejection fraction of 15 to 20%. 3. Volume overload. Improved with diuresis. 4. Hypokalemia from diuresis. Replaced. 5. Chronic kidney disease stage IIIa with baseline creatinine 1.3-1.5. 6. Elevated free kappa light chains being followed by hematology. 7. Diabetes mellitus. Plan: Maintain oral Bumex 2 mg twice daily. Maintain Farxiga. Maintain low-salt diet. Maintain 1500 cc fluid restriction. Advised patient to maintain low-salt diet and fluid restriction of less than 50 ounces per day upon discharge. He was also advised to monitor his weight closely at home and to notify physician if develops edema or gains more than 3 pounds in 1 week duration. Follow-up outpatient 1 week postdischarge. Repeat BMP and magnesium level 2 to 3 days postdischarge.
[2023-09-19 12:31] VITALS: BP 87/52; PULSE 82; TEMP 98.1
--- NOTE | 2023-09-19 12:56 | P.PN ---
Subjective Progress Note Date: 09/19/23 HISTORY OF PRESENT ILLNESS: Patient is a pleasant 58-year-old male with significant past medical history diabetes type 2 since age 45, asthma, hypertension, hyperlipidemia and more recently acute systolic heart failure who presents for worsening edema and shortness of breath. He has previously seen Dr. Cheung. He was recently admitted a few weeks ago and found to have severe LV systolic dysfunction with EF of 15-20%. Denies any prior history of heart failure. He reports that he has been having issues with swelling in his lower extremities for the past couple months. He does currently have his LifeVest on. He does report having a significant family history of heart disease however is unable to recall who had what. He is trying to cut back on smoking marijuana. His main complaint is scrotal swelling and constipation. This is very uncomfortable and is he is unable to perform his normal activities at home. Chest x-ray shows mild/moderate CHF, with enlarging moderate sized right pleural effusion. Labs reviewed: Hemoglobin 11.3, creatinine 2.26, potassium 4.4, BNP 08727. Echocardiogram 08/12/2023 with a EF 15-20%, moderate mitral regurgitation and tricuspid regurgitation. 09/07/23 ECHO with slight improvement of EF to 20-25%, moderate to severe mitral regurgitation. Creat stable at 2.27. He reports having increased stress from family issues and needed a xanax today. Otherwise he is doing ok. No chest pain. Shortness of breath stable. Slight improvement in edema. 09/08 No complaints of chest pain, shortness of breath is stable. Blood pressure 100/66, heart rate in the 80s, pulse ox 90% on room air. Patient is maintained on IV Lasix 80 mg every 8 hours. Weights do not appear to be accurate. Patient had a negative fluid balance yesterday of 560 mL. No repeat blood work for today. BMP ordered for tomorrow 09/09 Patient denies having any chest pain. No shortness of breath. Patient was tentatively scheduled for cardiac catheterization. Lab work this morning reveals BUN 39 creatinine 2.26 which appears to be patient's baseline, potassium 3.9. Heart rate 82, blood pressure 93/52, pulse ox 99% on room air. Yesterday, IV Lasix frequency was decreased to twice daily. 09/10 Patient's cardiac catheterization was delayed until today. Repeat lab work reveals BUN 41 creatinine 2.16. Patient denies any chest pain or short of breath. He has been continued on IV Lasix and the morning dose was held. 09/11/2023 Patient is s/p cardiac catherization with Dr. Cheung. Cath revealed three-vessel coronary artery disease with chronic occlusion of the right coronary artery and significant disease involving circumflex coronary arteries and diffuse disease involving the LAD. Patient denies chest pain or pressure. He reports mild SOB. He remains on IV lasix. Vital signs stable. 09/12/2023 Patient examined this morning at the bedside. Patient denies chest pain or pressure. He currently denies shortness of breath. He is laying flat in bed and appears comfortable. He remains on IV diuresis. Patient was also started on dobutamine yesterday. Urine output for the last 24 hours is 1925 cc. 09/13/2023 Patient seen and examined sitting up in bed. Maintained on dobutamine infusion and IV Lasix. Laboratory data reviewed, hemoglobin 10.1, platelets 104, potassium 3.3, creatinine 2.1 and magnesium 1.8. He is maintaining a negative fluid balance for the previous 24 hours and weight is down 2 kg. Blood pressure 108/70 heart rate 85. 09/14/2023 Seen laying flat in bed. He ate breakfast. He is diuresing well on current regimen with 3.2 L out in 24 hours and weight down 3 kg. Blood pressure stable. Potassium low today, will replace and creatinine stable at 2.04. 09/15 Patient has been up to the bathroom and complains of shortness of breath with minimal ambulation. He is however able to lay flat in bed. Patient denies having any chest pain. He is on dobutamine at 5 mics. He is also on Lasix 80 mg IV every 8 hours, metolazone 5 mg daily and midodrine as needed. Repeat blood work reveals BUN of 39 creatinine 2.01. Patient continues to have good urine output with yesterday at a -2470. Weight appears to be down 5 kg from yesterday. Nephrology has continue patient on IV Lasix and dobutamine and stop metolazone, added Farxiga. 09/16 Patient remains on dobutamine drip at 5 mics. He is also on Lasix 80 mg IV every 8 hours. Patient denies having any chest pain, lightheadedness or dizziness. He states he did fine getting up to the bathroom today. Note the metolazone was discontinued by nephrology yesterday. Repeat blood work reveals hemoglobin 10.7, sodium 135, potassium 3.2, BUN 39 creatinine 2. Heart rate is in the 80s, blood pressure 103/65. Pulse ox 97% on room air. Patient has a negative fluid balance yesterday of 4959. Weight is trending down. Patient is continued on a 1500 cc fluid restriction 09/17 Patient denies any new complaints today. Breathing status seems to be stable. He has LifeVest in place. He has been maintained on dobutamine drip which will be discontinued today. Yesterday IV Lasix was changed to oral Bumex by nephrology. Blood pressure 97/65, heart rate in the 80s, pulse ox 94% on room air. Repeat blood work reveals sodium 133, potassium 3.1, chloride 82, CO2 39, BUN 27 creatinine 2.02. Potassium has been replaced. 09/18 Patient was prepared for discharge yesterday but there is no difficulty with his discharge planning as he apparently has no running water at home. Reed catheter was removed this morning. Blood pressures are on the soft side and Imdur will be discontinued. Patient has no new concerns. Breathing status seems to be stable. Blood pressure 89/53, heart rate 79, pulse ox 94% on room air. Repeat blood work reveals sodium 133, potassium 3.5, BUN 41 creatinine 2.24. 09/19 Patient's discharge was delayed yesterday due to urinary retention issues which seem to have resolved. Patient has no new concerns today. Patient does have continued borderline blood pressure readings he does have midodrine at home. Lasix decreased to 40 mg twice daily for home. PHYSICAL EXAM: VITAL SIGNS: Reviewed. GENERAL: Well-developed in no acute distress. NECK: Supple. No JVD or thyromegaly LUNGS: Respirations even and unlabored. Lungs diminished bilaterally. HEART: Regular rate and rhythm. S1 and S2 heard. + systolic murmur EXTREMITIES: No clubbing or cyanosis. Peripheral pulses intact. 2+ bilateral lower extremity edema ASSESSMENT: Acute on chronic heart failure with reduced EF, 15-20% Ischemic cardiomyopathy Triple vessel coronary artery disease with chronic occlusion of the right coronary artery and significant disease involving the circumflex and diffuse disease involving the LAD status post cardiac catheterization 09/10 Chronic occlusion of RCA Acute kidney injury Diabetes type 2 Hyperlipidemia Hypertension Marijuana use Moderate right pleural effusion Moderate mitral regurgitation PLAN: Continue current cardiac medications Discontinue Imdur, decrease Lasix to 40 mg twice daily for home Patient is cleared for discharge from cardiology and may follow-up in the office in 1 to 2 weeks. Nurse practitioner note has been reviewed by physician. Signing provider agrees with the documented findings, assessment, and plan of care documented by [employer] as a scribe. Objective - Vital Signs Vital signs: Vital Signs Temp 98 F 09/19/23 08:53 Pulse 74 09/19/23 08:53 Resp 18 09/19/23 08:53 BP 89/62 09/19/23 08:53 Pulse Ox 95 09/19/23 08:53 FiO2 Intake & Output 09/18/23 09/19/23 09/19/23 18:59 06:59 18:59 Output Total 1653 775 Balance -1653 -775 Output: Urine 1000 775 Uretheral (Reed) 300 Post Void Residual 653 Stool 0 Other: Voiding Method Urinal Urinal Urinal # Voids 1 - Labs CBC & Chem 7: 09/16/23 08:31 09/18/23 09:14 Labs: Abnormal Lab Results - Last 24 Hours (Table) 09/18/23 09/18/23 09/18/23 Range/Units 09:14 11:39 16:54 Sodium 133 L (137-145) mmol/L Chloride 82 L (98-107) mmol/L Carbon Dioxide 38 H (22-30) mmol/L BUN 41 H (9-20) mg/dL Creatinine 2.24 H (0.66-1.25) mg/dL Glucose 127 H (74-99) mg/dL POC Glucose (mg/dL) 135 H 114 H (70-110) mg/dL 09/18/23 09/19/23 Range/Units 19:57 05:57 Sodium (137-145) mmol/L Chloride (98-107) mmol/L Carbon Dioxide (22-30) mmol/L BUN (9-20) mg/dL Creatinine (0.66-1.25) mg/dL Glucose (74-99) mg/dL POC Glucose (mg/dL) 168 H 131 H (70-110) mg/dL
== END 2023-09-19 14:07 | disposition home health service (06) | DRG 192 ==
LOC: EC 16:33 → 6NMEDSUR 21:18 → OBSVTOIN 21:18 → 6NMEDSUR 09-06 02:12 → 4SSUR 09-06 12:33 → 5NMEDONC 09-06 13:03 → 3SCARD 09-10 14:08
PROVIDERS: ADMIT Internal Medicine; ATTEND Internal Medicine
PROC: B2111ZZ Fluoroscopy of Multiple Coronary Arteries using Low Osmolar Contrast (ICD-10-PCS; 2023-09-10)
PROC: B2151ZZ Fluoroscopy of Left Heart using Low Osmolar Contrast (ICD-10-PCS; 2023-09-10)
PROC: 4A023N8 Measurement of Cardiac Sampling and Pressure, Bilateral, Percutaneous Approach (ICD-10-PCS; principal; 2023-09-10 12:00)
DX: I13.0 Hypertensive heart and chronic kidney disease with heart failure and stage 1 through stage 4 chronic kidney disease, or unspecified chronic kidney disease (principal); I08.1 Rheumatic disorders of both mitral and tricuspid valves; I25.10 Atherosclerotic heart disease of native coronary artery without angina pectoris; I25.5 Ischemic cardiomyopathy; I50.23 Acute on chronic systolic (congestive) heart failure; J45.909 Unspecified asthma, uncomplicated; K59.00 Constipation, unspecified; N17.0 Acute kidney failure with tubular necrosis; N18.31 Chronic kidney disease, stage 3a; D61.818 Other pancytopenia; E11.22 Type 2 diabetes mellitus with diabetic chronic kidney disease; E78.5 Hyperlipidemia, unspecified; E87.6 Hypokalemia; T50.2X5A Adverse effect of carbonic-anhydrase inhibitors, benzothiadiazides and other diuretics, initial encounter; N40.1 Benign prostatic hyperplasia with lower urinary tract symptoms; E88.09 Other disorders of plasma-protein metabolism, not elsewhere classified; F32.A Depression, unspecified; N50.89 Other specified disorders of the male genital organs; R33.8 Other retention of urine; Z59.12 Inadequate housing utilities; Z79.82 Long term (current) use of aspirin; Z79.84 Long term (current) use of oral hypoglycemic drugs; Z79.899 Other long term (current) drug therapy; Z82.49 Family history of ischemic heart disease and other diseases of the circulatory system; F17.290 Nicotine dependence, other tobacco product, uncomplicated; Z71.89 Other specified counseling; Z89.411 Acquired absence of right great toe; Z89.421 Acquired absence of other right toe(s); Z79.85 Long-term (current) use of injectable non-insulin antidiabetic drugs; Z88.1 Allergy status to other antibiotic agents; Z88.0 Allergy status to penicillin; Z88.2 Allergy status to sulfonamides
CPT/HCPCS: 36415; 71045; 80048; 80053; 81001; 82232; 82607; 82746; 82784; 83735; 83880; 83883; 84100; 84165; 84166; 85025; 85027; 85652; 86334; 86335; 93308; 93458; 94640; 96374; 96376; 99285

== ENCOUNTER 2023-09-25 10:21 | Emergency (ER) | payer OTHER ==
[2023-09-25 10:36] VITALS: TEMP 97.9
[2023-09-25] MEDS: SODIUM CHLORIDE 0.9% 1,000 ML IV STA (10:46)
[2023-09-25 10:59] LABS: Basophils % (A) 1 %; Eosinophils # (A) 0.2 k/uL (0-0.7); Eosinophils % (A) 5 %; HCT 34.3 % (39.0-53.0); HGB 11.4 gm/dL (13.0-17.5); Lymphocytes % (A) 21 %; MCH 27.2 pg (25.0-35.0); MCHC 33.2 g/dL (31.0-37.0); MCV 81.8 fL (80.0-100.0); Mean Platelet Volume 7.7; Monocytes # (A) 0.4 k/uL (0-1.0); Monocytes % (A) 8 %; Neutrophils % (A) 62 %; Platelet Count 213 k/uL (150-450); RBC 4.19 m/uL (4.30-5.90); WBC 4.9 k/uL (3.8-10.6)
[2023-09-25 11:02] LABS: ALT 25 U/L (4-49); AST 44 U/L (17-59); African American GFR (CKD) 42 (>60 ml/min/1.73 sqM); Albumin 4.1 g/dL (3.5-5.0); Alkaline Phosphatase 180 U/L (38-126); Anion Gap 10 mmol/L; Blood Urea Nitrogen 83 mg/dL (9-20); Calcium 9.5 mg/dL (8.4-10.2); Carbon Dioxide 34 mmol/L (22-30); Chloride 90 mmol/L (98-107); Glucose 110 mg/dL (74-99); Magnesium 2.4 mg/dL (1.6-2.3); Non-African American GFR(CKD) 36 (>60 ml/min/1.73 sqM); Sodium 134 mmol/L (137-145); Total Bilirubin 1.7 mg/dL (0.2-1.3); Total Protein 7.5 g/dL (6.3-8.2)
[2023-09-25 11:05] LABS: Partial Thromboplastin Time 23.6 sec (22.0-30.0); Prothrombin Time 10.8 sec (10.0-12.5)
[2023-09-25] MEDS: MIDODRINE 5 MG TAB PO STA (11:21)
--- NOTE | 2023-09-25 11:31 | XR ---
EXAMINATION TYPE: XR chest 2V DATE OF EXAM: 09/25/2023 COMPARISON: 09/05/2023 HISTORY: 58-year-old male shortness of breath, syncope TECHNIQUE: AP and lateral views FINDINGS: Multiple electronic devices projecting over the chest. Heart remains borderline to mildly enlarged. U ncoiling moderate right pleural effusion. Left lung and pleural space are relatively clear. IMPRESSION: Ongoing moderate right pleural effusion with adjacent atelectasis and/or consolidation.
[2023-09-25 11:39] VITALS: RESP 16
[2023-09-25 12:48] LABS: Appearance,Urine Clear (Clear); Bilirubin,Urine Negative (Negative); Blood,Urine Negative (Negative); Color,Urine Light Yellow; Glucose,Urine (UA) Trace (Negative); Ketones,Urine Negative (Negative); Leukocyte Esterase,Urine Negative (Negative); Nitrite,Urine Negative (Negative); Protein,Urine Negative (Negative); Specific Gravity,Urine 1.011 (1.001-1.035)
--- NOTE | 2023-09-25 13:25 | ED ---
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 Was in the waiting room when he states he suffered a syncopal episode. Unknown if it was a near-syncope or syncope event but thinks it was complete syncope. Has a history of this. Has a history of diabetes, hypertension, renal disease. Also a history of CHF. Is on midodrine but has not been taking it. States symptoms have completely resolved at this time. Has no other acute complaints at this time. Presents for further evaluation at this time. - Related Data Home Medications Medication Instructions Recorded Confirmed Dulaglutide [Trulicity] 1.5 mg SQ FR 02/19/23 09/25/23 Simvastatin [Zocor] 20 mg PO DAILY 02/19/23 09/25/23 Albuterol Sulfate [Albuterol 2 puff INHALATION RT-Q6H PRN 08/11/23 09/25/23 Sulfate Hfa] Tamsulosin HCl [Flomax] 0.4 mg PO DAILY 08/11/23 09/25/23 Furosemide [Lasix] 80 mg PO BID 09/25/23 09/25/23 Nystatin 100,000 Unit/gm Powd 1 applic TOPICAL BID 09/25/23 09/25/23 [Mycostatin Powder] Previous Rx's Medication Instructions Recorded ALPRAZolam [Xanax] 0.25 mg PO TID PRN #6 tab 08/21/23 Midodrine [ProAmatine] 5 mg PO AC-TID PRN #60 tab 08/21/23 carvediloL [Coreg] 3.125 mg PO BID-W/MEALS 30 Days 08/21/23 #60 tab polyethylene glycoL 3350 [Miralax] 17 gm PO DAILY PRN packet 08/21/23 Aspirin 81 mg PO DAILY 30 Days #30 tab 09/18/23 DULoxetine HCL [Cymbalta] 60 mg PO DAILY 30 Days #30 cap 09/18/23 Dapagliflozin Propanediol [Farxiga] 5 mg PO DAILY 30 Days #30 tab 09/18/23 Potassium Chloride ER [K-Dur 20] 20 meq PO DAILY 30 Days #30 tab 09/18/23 Allergies Allergy/AdvReac Type Severity Reaction Status Date / Time Penicillins Allergy Rash/Hives Verified 09/25/23 12:12 Sulfa (Sulfonamide Allergy Rash/Hives Verified 09/25/23 12:12 Antibiotics) indomethacin AdvReac Unknown Verified 09/06/23 12:51 Review of Systems ROS Statement: Those systems with pertinent positive or pertinent negative responses have been documented in the HPI. Review of Systems: CONST: Denies fever EYES: Denies blurry vision ENT: Denies nasal congestion C/V: Denies Chest pain RESP: Denies shortness of breath GI: Denies abdominal pain : Denies dysuria SKIN: Denies rash. MSK: Denies joint pain. NEURO: Denies headache ROS Other: All systems not noted in ROS Statement are negative. 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 HEAD: Normal with no signs of head trauma. EYES: PERRLA, EOMI, conjunctiva normal, no discharge. ENT: Hearing grossly intact, normal oropharynx. RESPIRATORY: Clear breath sounds bilaterally. No wheezes, rales, or rhonchi. C/V: Regular rate and rhythm. S1 and S2 auscultated, no edema, peripheral pulses 2+ and intact throughout ABD: Abd is soft, nontender, nondistended EXT: Normal range of motion, no obvious deformity SKIN: No rashes or lesions observed on exposed skin. NEURO: Alert and oriented x 4. Cranial nerves II-XII intact. No focal sensory or strength deficits. GCS of 15. Limitations: no limitations Course Vital Signs 09/25/23 09/25/23 09/25/23 10:26 10:41 10:52 Temperature 97.9 F Pulse Rate 75 74 Pulse Rate [ 78 Senior Product Engineer ] Pulse Rate [ Standing Senior Product Engineer ] Pulse Rate [ Supine Senior Product Engineer] Respiratory 16 20 Rate Blood Pressure 98/74 95/70 Blood Pressure [Sitting] Blood Pressure [Standing] Blood Pressure [Supine] O2 Sat by Pulse 95 95 Oximetry 09/25/23 09/25/23 09/25/23 11:22 12:14 12:15 Temperature Pulse Rate 75 Pulse Rate [ 71 Senior Product Engineer ] Pulse Rate [ Standing Senior Product Engineer ] Pulse Rate [ 75 Supine Senior Product Engineer] Respiratory 16 16 16 Rate Blood Pressure 92/70 Blood Pressure 94/67 [Sitting] Blood Pressure [Standing] Blood Pressure 99/74 [Supine] O2 Sat by Pulse 98 Oximetry 09/25/23 12:17 Temperature Pulse Rate Pulse Rate [ Senior Product Engineer ] Pulse Rate [ 78 Standing Senior Product Engineer ] Pulse Rate [ Supine Senior Product Engineer] Respiratory Rate Blood Pressure Blood Pressure [Sitting] Blood Pressure 95/65 [Standing] Blood Pressure [Supine] O2 Sat by Pulse Oximetry Medical Decision Making - Medical Decision Making Was pt. sent in by a medical professional or institution (, PA, [employer] [facility], urgent care, hospital, or senior care...) When possible be specific @ -No Did you speak to anyone other than the patient for history (EMS, parent, family, police, friend...)? What history was obtained from this source @ -No Did you review nursing and triage notes (agree or disagree)? Why? @ -I reviewed and agree with nursing and triage notes Were old charts reviewed (outside hosp., previous admission, EMS record, old EKG, old radiological studies, urgent care reports/EKG's, senior care records)? Report findings @ -Old charts reviewed Differential Diagnosis (chest pain, altered mental status, abdominal pain women, abdominal pain men, vaginal bleeding, weakness, fever, dyspnea, syncope, headache, dizziness, GI bleed, back pain, seizure, CVA, palpatations, mental health, musculoskeletal)? @ -Differential Syncope: Valvular disease, hypertrophic cardiomyopathy, pulmonary embolism, tamponade, tachycardia, bradycardia, [place], hypovolemia, hemorrhage, dissection, anemia, intracranial hemorrhage, seizure, hypoglycemia, carbon monoxide poisoning, this is not meant to be an all-inclusive list. EKG interpreted by me (3pts min.). @ -As above X-rays interpreted by me (1pt min.). @ -Chest x-ray reveals no obvious acute cardiopulmonary process. Chronic right pleural effusion present CT interpreted by me (1pt min.). @ -None done U/S interpreted by me (1pt. min.). @ -None done What testing was considered but not performed or refused? (CT, X-rays, U/S, labs)? Why? @ -None What meds were considered but not given or refused? Why? @ -None Did you discuss the management of the patient with other professionals (professionals i.e. Dr., PA, [employer], lab, RT, psych nurse, social service director, graphics edit technician, teacher, bsa/aml compliance officer, case mgr)? Give summary @ -No Was smoking cessation discussed for >3mins.? @ -No Was critical care preformed (if so, how long)? @ -No Were there social determinants of health that impacted care today? How? (Homel essness, low income, unemployed, alcoholism, drug addiction, transportation, low edu. Level, literacy, decrease access to med. care, usp, rehab)? @ -No Was there de-escalation of care discussed even if they declined (Discuss DNR or withdrawal of care, Hospice)? DNR status @ -No What co-morbidities impacted this encounter? (DM, HTN, Smoking, COPD, CAD, Cancer, CVA, ARF, Chemo, Hep., AIDS, mental health diagnosis, sleep apnea, morbid obesity)? @ -CHF, CKD Was patient admitted / discharged? Hospital course, mention meds given and route, prescriptions, significant lab abnormalities, going to OR and other pertinent info. @ -Based on the patient's presentation and physical exam, presents emergency department complaining of a syncope versus near syncope episode at his doctor's office. He has no acute complaints at this time. Has a history of chronic low blood pressure on midodrine which she is not compliant with. Presents for further evaluation. Vital signs currently within acceptable limits. EKG showed no signs of acute ischemia. Laboratory studies are remarkable for chronic anemia, CKD, as well as chronically elevated BNP of 9900. Remainder of the labs are unremarkable. Chest x-ray shows no signs of acute pulmonary process. On reevaluation, patient is feeling improved. I did offer admission at this time which he declines as he feels at his normal baseline. Orthostatics negative. He will follow-up with his PCP and cardiology. Patient is wearing a ZOLL monitor however we were unable to obtain any results if there were any events. Recommended follow-up with cardiology for results. I instructed the patient to follow up with their PCP in the next 1-3 days. I ex plained that the patient should return to the emergency department if they experience any worsening symptoms. Strict return precautions were discussed with the patient. The patient expressed understanding of these instructions. I answered all questions that the patient had. The patient was discharged home in good condition with their prescriptions and follow up information. Undiagnosed new problem with uncertain prognosis? @ -No Drug Therapy requiring intensive monitoring for toxicity (Heparin, Nitro, Insulin, Cardizem)? @ -No Were any procedures done? @ -No Diagnosis/symptom? @ -Syncope Acute, or Chronic, or Acute on Chronic? @ -Acute Uncomplicated (without systemic symptoms) or Complicated (systemic symptoms)? @ -Complicated Side effects of treatment? @ -No Exacerbation, Progression, or Severe Exacerbation? @ -No Poses a threat to life or bodily function? How? (Chest pain, [place], [place], pneumonia, PE, COPD, DKA, ARF, appy, cholecystitis, CVA, Diverticulitis, Homicidal, Suicidal, threat to staff... and all critical care pts) @ -Unlikely - Lab Data Result diagrams: 09/25/23 10:34 09/25/23 10:34 Lab Results 09/25/23 09/25/23 09/25/23 Range/Units 10:34 10:34 10:34 WBC 4.9 (3.8-10.6) k/uL RBC 4.19 L (4.30-5.90) m/uL Hgb 11.4 L (13.0-17.5) gm/dL Hct 34.3 L (39.0-53.0) % MCV 81.8 (80.0-100.0) fL MCH 27.2 (25.0-35.0) pg MCHC 33.2 (31.0-37.0) g/dL RDW 16.0 H (11.5-15.5) % Plt Count 213 (150-450) k/uL MPV 7.7 Neutrophils % 62 % Lymphocytes % 21 % Monocytes % 8 % Eosinophils % 5 % Basophils % 1 % Neutrophils # 3.0 (1.3-7.7) k/uL Lymphocytes # 1.0 (1.0-4.8) k/uL Monocytes # 0.4 (0-1.0) k/uL Eosinophils # 0.2 (0-0.7) k/uL Basophils # 0.0 (0-0.2) k/uL PT 10.8 (10.0-12.5) sec INR 1.0 (<1.2) APTT 23.6 (22.0-30.0) sec Sodium 134 L (137-145) mmol/L Potassium 4.0 (3.5-5.1) mmol/L Chloride 90 L (98-107) mmol/L Carbon Dioxide 34 H (22-30) mmol/L Anion Gap 10 mmol/L BUN 83 H (9-20) mg/dL Creatinine 2.00 H (0.66-1.25) mg/dL Est GFR (CKD-EPI)AfAm 42 (>60 ml/min/1.73 sqM) Est GFR (CKD-EPI)NonAf 36 (>60 ml/min/1.73 sqM) Glucose 110 H (74-99) mg/dL Calcium 9.5 (8.4-10.2) mg/dL Magnesium 2.4 H (1.6-2.3) mg/dL Total Bilirubin 1.7 H (0.2-1.3) mg/dL AST 44 (17-59) U/L ALT 25 (4-49) U/L Alkaline Phosphatase 180 H (38-126) U/L Troponin I (0.000-0.034) ng/mL NT-Pro-B Natriuret Pep pg/mL Total Protein 7.5 (6.3-8.2) g/dL Albumin 4.1 (3.5-5.0) g/dL Urine Color Urine Appearance (Clear) Urine pH (5.0-8.0) Ur Specific [place] (1.001-1.035) Urine Protein (Negative) Urine Glucose (UA) (Negative) Urine Ketones (Negative) Urine Blood (Negative) Urine Nitrite (Negative) Urine Bilirubin (Negative) Urine Urobilinogen (<2.0) mg/dL Ur Leukocyte Esterase (Negative) Influenza Type A (PCR) (Not Detectd) Influenza Type B (PCR) (Not Detectd) RSV (PCR) (Not Detectd) SARS-CoV-2 (PCR) (Not Detectd) 09/25/23 09/25/23 09/25/23 Range/Units 10:34 10:37 10:40 WBC (3.8-10.6) k/uL RBC (4.30-5.90) m/uL Hgb (13.0-17.5) gm/dL Hct (39.0-53.0) % MCV (80.0-100.0) fL MCH (25.0-35.0) pg MCHC (31.0-37.0) g/dL RDW (11.5-15.5) % Plt Count (150-450) k/uL MPV Neutrophils % % Lymphocytes % % Monocytes % % Eosinophils % % Basophils % % Neutrophils # (1.3-7.7) k/uL Lymphocytes # (1.0-4.8) k/uL Monocytes # (0-1.0) k/uL Eosinophils # (0-0.7) k/uL Basophils # (0-0.2) k/uL PT (10.0-12.5) sec INR (<1.2) APTT (22.0-30.0) sec Sodium (137-145) mmol/L Potassium (3.5-5.1) mmol/L Chloride (98-107) mmol/L Carbon Dioxide (22-30) mmol/L Anion Gap mmol/L BUN (9-20) mg/dL Creatinine (0.66-1.25) mg/dL Est GFR (CKD-EPI)AfAm (>60 ml/min/1.73 sqM) Est GFR (CKD-EPI)NonAf (>60 ml/min/1.73 sqM) Glucose (74-99) mg/dL Calcium (8.4-10.2) mg/dL Magnesium (1.6-2.3) mg/dL Total Bilirubin (0.2-1.3) mg/dL AST (17-59) U/L ALT (4-49) U/L Alkaline Phosphatase (38-126) U/L Troponin I 0.022 (0.000-0.034) ng/mL NT-Pro-B Natriuret Pep pg/mL Total Protein (6.3-8.2) g/dL Albumin (3.5-5.0) g/dL Urine Color Light Yellow Urine Appearance Clear (Clear) Urine pH 7.0 (5.0-8.0) Ur Specific [place] 1.011 (1.001-1.035) Urine Protein Negative (Negative) Urine Glucose (UA) Trace H (Negative) Urine Ketones Negative (Negative) Urine Blood Negative (Negative) Urine Nitrite Negative (Negative) Urine Bilirubin Negative (Negative) Urine Urobilinogen 2.0 (<2.0) mg/dL Ur Leukocyte Esterase Negative (Negative) Influenza Type A (PCR) Not Detected (Not Detectd) Influenza Type B (PCR) Not Detected (Not Detectd) RSV (PCR) Not Detected (Not Detectd) SARS-CoV-2 (PCR) Not Detected (Not Detectd) 09/25/23 Range/Units 10:55 WBC (3.8-10.6) k/uL RBC (4.30-5.90) m/uL Hgb (13.0-17.5) gm/dL Hct (39.0-53.0) % MCV (80.0-100.0) fL MCH (25.0-35.0) pg MCHC (31.0-37.0) g/dL RDW (11.5-15.5) % Plt Count (150-450) k/uL MPV Neutrophils % % Lymphocytes % % Monocytes % % Eosinophils % % Basophils % % Neutrophils # (1.3-7.7) k/uL Lymphocytes # (1.0-4.8) k/uL Monocytes # (0-1.0) k/uL Eosinophils # (0-0.7) k/uL Basophils # (0-0.2) k/uL PT (10.0-12.5) sec INR (<1.2) APTT (22.0-30.0) sec Sodium (137-145) mmol/L Potassium (3.5-5.1) mmol/L Chloride (98-107) mmol/L Carbon Dioxide (22-30) mmol/L Anion Gap mmol/L BUN (9-20) mg/dL Creatinine (0.66-1.25) mg/dL Est GFR (CKD-EPI)AfAm (>60 ml/min/1.73 sqM) Est GFR (CKD-EPI)NonAf (>60 ml/min/1.73 sqM) Glucose (74-99) mg/dL Calcium (8.4-10.2) mg/dL Magnesium (1.6-2.3) mg/dL Total Bilirubin (0.2-1.3) mg/dL AST (17-59) U/L ALT (4-49) U/L Alkaline Phosphatase (38-126) U/L Troponin I (0.000-0.034) ng/mL NT-Pro-B Natriuret Pep 9960 pg/mL Total Protein (6.3-8.2) g/dL Albumin (3.5-5.0) g/dL Urine Color Urine Appearance (Clear) Urine pH (5.0-8.0) Ur Specific [place] (1.001-1.035) Urine Protein (Negative) Urine Glucose (UA) (Negative) Urine Ketones (Negative) Urine Blood (Negative) Urine Nitrite (Negative) Urine Bilirubin (Negative) Urine Urobilinogen (<2.0) mg/dL Ur Leukocyte Esterase (Negative) Influenza Type A (PCR) (Not Detectd) Influenza Type B (PCR) (Not Detectd) RSV (PCR) (Not Detectd) SARS-CoV-2 (PCR) (Not Detectd) - EKG Data -: EKG Interpreted by Me EKG Comments: 12-lead Electrocardiogram Interpretation Note EKG was reviewed and interpreted by myself. 12-lead ECG performed at 1025 is interpreted by me as revealing normal sinus rhythm with first-degree AV block. At a rate of 75 beats per minute. [place] is normal. [place] interval is 234 ms, QRS duration is 121 ms, QTc is 453 ms. Intermittent PVC present. There were no ST or T wave abnormalities to suggest myocardial ischemia or injury. R wave progression across the precordium was satisfactory. By my interpretation this EKG is non-diagnostic for acute ischemia. Disposition Clinical Impression: Syncope Disposition: HOME SELF-CARE Condition: Good Instructions (If sedation given, give patient instructions): Syncope (ED) Is patient prescribed a controlled substance at d/c from ED?: No Referrals: Patricio Banuelos DO [Primary Care Provider] - 1-2 days Time of Disposition: 13:25
[2023-09-25 13:47] VITALS: BP 106/85; PULSE 68
== END 2023-09-25 13:45 | disposition home or self-care (01) ==
LOC: EC 10:21
DX: I45.10 Unspecified right bundle-branch block (principal); J90 Pleural effusion, not elsewhere classified; E11.9 Type 2 diabetes mellitus without complications; I10 Essential (primary) hypertension; F17.290 Nicotine dependence, other tobacco product, uncomplicated; F12.90 Cannabis use, unspecified, uncomplicated; Z86.59 Personal history of other mental and behavioral disorders; Z79.899 Other long term (current) drug therapy; Z79.84 Long term (current) use of oral hypoglycemic drugs; Z88.0 Allergy status to penicillin; Z88.2 Allergy status to sulfonamides; Z88.1 Allergy status to other antibiotic agents; Z20.822 Contact with and (suspected) exposure to COVID-19
CPT/HCPCS: 36415; 71046; 80053; 81003; 83735; 83880; 84484; 85025; 85610; 85730; 87636; 93005; 96360; 96361; 99285

== ENCOUNTER 2024-01-28 17:05 | Inpatient (IN) | payer OTHER ==
--- NOTE | 2024-01-28 17:47 | ED ---
General Adult HPI - General Chief complaint: Extremity Problem,Nontraumatic Stated complaint: Syncope Time Seen by Provider: 01/28/24 17:18 Source: patient, RN notes reviewed, old records reviewed Mode of arrival: ambulatory Limitations: no limitations - History of Present Illness Initial comments: 58-year-old male history of CHF, CAD, diabetes presents with lower extremity swelling. He admits that he is not compliant with his medications stating that he just forgets to take them. He denies central chest pain. He denies significant dyspnea. He is at increased swelling of the bilateral lower extremities over the past several days. - Related Data Home Medications Medication Instructions Recorded Confirmed Aspirin 162 mg PO Q8H PRN 01/28/24 01/28/24 Allergies Allergy/AdvReac Type Severity Reaction Status Date / Time Penicillins Allergy Rash/Hives Verified 01/28/24 19:27 Sulfa (Sulfonamide Allergy Rash/Hives Verified 01/28/24 19:27 Antibiotics) indomethacin AdvReac Unknown Verified 01/28/24 17:12 Review of Systems ROS Statement: Those systems with pertinent positive or pertinent negative responses have been documented in the HPI. ROS Other: All systems not noted in ROS Statement are negative. 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 Absent: tenderness, meningismus Respiratory exam: Present: rales. Absent: respiratory distress Cardiovascular Exam: Present: regular rate, normal rhythm GI/Abdominal exam: Present: soft. Absent: distended, tenderness, guarding Extremities exam: Present: pedal edema Course Vital Signs 01/28/24 01/28/24 01/28/24 17:06 18:00 18:30 Temperature 97.5 F L Pulse Rate 89 86 85 Respiratory 20 18 18 Rate Blood Pressure 118/81 114/91 128/97 O2 Sat by Pulse 94 L 95 94 L Oximetry 01/28/24 19:21 Temperature Pulse Rate 83 Respiratory 14 Rate Blood Pressure 116/87 O2 Sat by Pulse 97 Oximetry Medical Decision Making - Medical Decision Making Was pt. sent in by a medical professional or institution (CHARANJIT Medina, COSMETIC SALES ASSISTANT, urgent care, hospital, or [facility]...) When possible be specific @ -No Did you speak to anyone other than the patient for history (EMS, parent, family, police, friend...)? What history was obtained from this source @ -No Did you review nursing and triage notes (agree or disagree)? Why? @ -I reviewed and agree with nursing and triage notes Were old charts reviewed (outside hosp., previous admission, EMS record, old EKG, old radiological studies, urgent care reports/EKG's, [facility] records)? Report findings @ -No old charts were reviewed Differential Dyspnea: Coronary syndrome, arrhythmia, tamponade, asthma, COPD, pulmonary embolism, pneumonia, pneumothorax, pulmonary effusion, anaphylaxis, diabetic ketoacidosis, flailed chest, pulmonary contusion, diaphragmatic rupture, anemia, neuromuscular, this is not meant to be an all-inclusive list. EKG interpreted by me (3pts min.). @Sinus rhythm with a first-degree AV block, low voltage rate of 84, FL interval 222, QRS duration 114, QTc [address] segment elevation. X-rays interpreted by me (1pt min.). @Chest x-ray showing pulmonary edema consistent with CHF. CT interpreted by me (1pt min.). @ -None done U/S interpreted by me (1pt. min.). @ -None done What testing was considered but not performed or refused? (CT, X-rays, U/S, labs)? Why? @ -None What meds were considered but not given or refused? Why? @ -None Did you discuss the management of the patient with other professionals (dennys singh i.e. CHARANJIT Medina, COSMETIC SALES ASSISTANT, lab, RT, psych nurse, social worker clinical, pluck separator, teacher, consumer safety officer, test case developer)? Give summary @ -No Was smoking cessation discussed for >3mins.? @ -No Was critical care preformed (if so, how long)? @ -yes 35 min Were there social determinants of health that impacted care today? How? (Homelessness, low income, unemployed, alcoholism, drug addiction, transportation, low edu. Level, literacy, decrease access to med. care, mcc, rehab)? @ -No Was there de-escalation of care discussed even if they declined (Discuss DNR or withdrawal of care, Hospice)? DNR status @ -No What co-morbidities impacted this encounter? (DM, HTN, Smoking, COPD, CAD, Cancer, CVA, ARF, Chemo, Hep., AIDS, mental health diagnosis, sleep apnea, morbid obesity)? @ -[Diabetes, CAD, CHF Was patient admitted / discharged? Hospital course, mention meds given and route, prescriptions, significant lab abnormalities, going to OR and other pertinent info. @ -58-year-old male presenting with bilateral lower extremity edema and dyspnea with chest x-ray showing CHF. Patient has been noncompliant with his medications. He is in sinus rhythm. He has significant lab abnormalities including anemia, hypokalemia, hypocalcemia, hypomagnesemia. His BNP is elevated at 8500. Troponin is negative. He is given Lasix in addition to electrolyte replacement including potassium, calcium, magnesium. Patient will require admission for treatment of electrolyte abnormalities and CHF. Case discussed with Yandy silveira for [facility] hospitalist. Undiagnosed new problem with uncertain prognosis? @ -No Drug Therapy requiring intensive monitoring for toxicity (Heparin, Nitro, Insulin, Cardizem)? @ -No Were any procedures done? @ -No Diagnosis/symptom? @ -[Acute CHF, hypokalemia, hypomagnesemia, hypocalcemia. Acute, or Chronic, or Acute on Chronic? @ -Acute Uncomplicated (without systemic symptoms) or Complicated (systemic symptoms)? @ -[default Side effects of treatment? @ -No Exacerbation, Progression, or Severe Exacerbation? @ -No Poses a threat to life or bodily function? How? (Chest pain, [place], [place], pneumonia, PE, COPD, DKA, ARF, appy, cholecystitis, CVA, Diverticulitis, Homicidal, Suicidal, threat to staff... and all critical care pts) @ -yes, CHF - Lab Data Result diagrams: 01/28/24 17:45 01/28/24 17:45 Lab Results 01/28/24 01/28/24 01/28/24 Range/Units 17:45 17:45 17:45 WBC 3.5 L (3.8-10.6) k/uL RBC 3.50 L (4.30-5.90) m/uL Hgb 9.6 L (13.0-17.5) gm/dL Hct 32.2 L (39.0-53.0) % MCV 91.9 (80.0-100.0) fL MCH 27.5 (25.0-35.0) pg MCHC 30.0 L (31.0-37.0) g/dL RDW 16.8 H (11.5-15.5) % Plt Count 164 (150-450) k/uL MPV 7.8 Neutrophils % 68 % Lymphocytes % 16 % Monocytes % 6 % Eosinophils % 5 % Basophils % 1 % Neutrophils # 2.4 (1.3-7.7) k/uL Lymphocytes # 0.6 L (1.0-4.8) k/uL Monocytes # 0.2 (0-1.0) k/uL Eosinophils # 0.2 (0-0.7) k/uL Basophils # 0.0 (0-0.2) k/uL Hypochromasia Moderate Anisocytosis Slight PT 11.9 (10.0-12.5) sec INR 1.1 (<1.2) APTT 25.9 (22.0-30.0) sec Sodium 138 (137-145) mmol/L Potassium 3.2 L (3.5-5.1) mmol/L Chloride 115 H (98-107) mmol/L Carbon Dioxide 18 L (22-30) mmol/L Anion Gap 5 mmol/L BUN 19 (9-20) mg/dL Creatinine 0.80 (0.66-1.25) mg/dL Est GFR (CKD-EPI)AfAm >90 (>60 ml/min/1.73 sqM) Est GFR (CKD-EPI)NonAf >90 (>60 ml/min/1.73 sqM) Glucose 73 L (74-99) mg/dL Calcium 6.8 L (8.4-10.2) mg/dL Magnesium 1.5 L (1.6-2.3) mg/dL Total Bilirubin 1.6 H (0.2-1.3) mg/dL AST 24 (17-59) U/L ALT 8 (4-49) U/L Alkaline Phosphatase 144 H (38-126) U/L Troponin I (0.000-0.034) ng/mL NT-Pro-B Natriuret Pep 8500 pg/mL Total Protein 5.7 L (6.3-8.2) g/dL Albumin 2.7 L (3.5-5.0) g/dL 01/28/24 Range/Units 17:45 WBC (3.8-10.6) k/uL RBC (4.30-5.90) m/uL Hgb (13.0-17.5) gm/dL Hct (39.0-53.0) % MCV (80.0-100.0) fL MCH (25.0-35.0) pg MCHC (31.0-37.0) g/dL RDW (11.5-15.5) % Plt Count (150-450) k/uL MPV Neutrophils % % Lymphocytes % % Monocytes % % Eosinophils % % Basophils % % Neutrophils # (1.3-7.7) k/uL Lymphocytes # (1.0-4.8) k/uL Monocytes # (0-1.0) k/uL Eosinophils # (0-0.7) k/uL Basophils # (0-0.2) k/uL Hypochromasia Anisocytosis PT (10.0-12.5) sec INR (<1.2) APTT (22.0-30.0) sec Sodium (137-145) mmol/L Potassium (3.5-5.1) mmol/L Chloride (98-107) mmol/L Carbon Dioxide (22-30) mmol/L Anion Gap mmol/L BUN (9-20) mg/dL Creatinine (0.66-1.25) mg/dL Est GFR (CKD-EPI)AfAm (>60 ml/min/1.73 sqM) Est GFR (CKD-EPI)NonAf (>60 ml/min/1.73 sqM) Glucose (74-99) mg/dL Calcium (8.4-10.2) mg/dL Magnesium (1.6-2.3) mg/dL Total Bilirubin (0.2-1.3) mg/dL AST (17-59) U/L ALT (4-49) U/L Alkaline Phosphatase (38-126) U/L Troponin I <0.012 (0.000-0.034) ng/mL NT-Pro-B Natriuret Pep pg/mL Total Protein (6.3-8.2) g/dL Albumin (3.5-5.0) g/dL Critical Care Time Critical Care Time: Yes Total Critical Care Time: 35 Disposition Clinical Impression: CHF (congestive heart failure), Hypomagnesemia syndrome, Hypokalemia, Hypoc alcemia Disposition: ADMITTED IP TO THIS [facility] Condition: Stable Is patient prescribed a controlled substance at d/c from ED?: No Referrals: Patricio Banuelos DO [Primary Care Provider] - 1-2 days Time of Disposition: 19:51
[2024-01-28 18:01] LABS: Anisocytosis Slight; Basophils % (A) 1 %; Eosinophils # (A) 0.2 k/uL (0-0.7); Eosinophils % (A) 5 %; HCT 32.2 % (39.0-53.0); HGB 9.6 gm/dL (13.0-17.5); Hypochromasia Moderate; Lymphocytes # (A) 0.6 k/uL (1.0-4.8); Lymphocytes % (A) 16 %; MCH 27.5 pg (25.0-35.0); MCV 91.9 fL (80.0-100.0); Mean Platelet Volume 7.8; Monocytes # (A) 0.2 k/uL (0-1.0); Monocytes % (A) 6 %; Neutrophils # (A) 2.4 k/uL (1.3-7.7); Neutrophils % (A) 68 %; Platelet Count 164 k/uL (150-450); RDW 16.8 % (11.5-15.5); WBC 3.5 k/uL (3.8-10.6)
[2024-01-28 18:10] LABS: INR 1.1 (<1.2); Partial Thromboplastin Time 25.9 sec (22.0-30.0); Prothrombin Time 11.9 sec (10.0-12.5)
[2024-01-28 18:11] LABS: ALT 8 U/L (4-49); AST 24 U/L (17-59); African American GFR (CKD) >90 (>60 ml/min/1.73 sqM); Albumin 2.7 g/dL (3.5-5.0); Alkaline Phosphatase 144 U/L (38-126); Anion Gap 5 mmol/L; Blood Urea Nitrogen 19 mg/dL (9-20); Calcium 6.8 mg/dL (8.4-10.2); Carbon Dioxide 18 mmol/L (22-30); Chloride 115 mmol/L (98-107); Glucose 73 mg/dL (74-99); Magnesium 1.5 mg/dL (1.6-2.3); Non-African American GFR(CKD) >90 (>60 ml/min/1.73 sqM); Potassium 3.2 mmol/L (3.5-5.1); Sodium 138 mmol/L (137-145); Total Bilirubin 1.6 mg/dL (0.2-1.3); Total Protein 5.7 g/dL (6.3-8.2)
[2024-01-28 18:20] LABS: NT-Pro-B-Type Natriuretic Pept 8500 pg/mL
--- NOTE | 2024-01-28 18:36 | XR ---
EXAMINATION TYPE: XR chest 2V DATE OF EXAM: 01/28/2024 COMPARISON: 09/25/2023 HISTORY: 58 year-old male shortness of breath, difficulty breathing TECHNIQUE: PA and lateral views FINDINGS: Heart borderline in size. Diffuse interstitial opacity. Small bilateral pleural effusions persist, si milar on the right but slightly increased on the left. IMPRESSION: Correlate for recurrent CHF with pulmonary vascular congestion. Small to moderate right and small lef t pleural effusions with adjacent atelectasis and/or consolidation.
[2024-01-28] MEDS: FUROSEMIDE 10 MG/ML 4 ML VIAL IV STA (18:49)
[2024-01-28] MEDS: CALCIUM GLUCONATE IN NACL 1 GM in SALINE 1 100ML.BAG IVPB ONE (18:51)
[2024-01-28] MEDS: POTASSIUM CHLORIDE 10 MEQ in WATER FOR INJECTION 1 100ML.BAG IVPB SCH (19:04)
[2024-01-28] MEDS: MAGNESIUM SULFATE-D5W PMX 1 GM in DEXTROSE/WATER 1 100ML.BAG IVPB SCH (19:04)
[2024-01-28] MEDS ORDERED: NALOXONE 0.4 MG/ML 1 ML VIAL IV PRN (19:47)
[2024-01-28 22:31] LABS: Glucose,Whole Blood 104 mg/dL (70-110)
[2024-01-29 06:07] LABS: Glucose,Whole Blood 102 mg/dL (70-110)
[2024-01-29] MEDS: INSULIN ASPART (NovoLOG) 100 UNIT/ML VIAL SQ SCH (06:15)
[2024-01-29] MEDS: FUROSEMIDE 10 MG/ML 4 ML VIAL IV SCH (08:17)
[2024-01-29] MEDS ORDERED: REGADENOSON 0.4 MG/5 ML SYRINGE IV PRN (09:22)
[2024-01-29] MEDS ORDERED: CAFFEINE CITRATE 60 MG/3 ML VIAL IV PRN (09:22)
[2024-01-29] MEDS ORDERED: AMINOPHYLLINE 500 MG/20 ML VIAL IV PRN (09:22)
--- NOTE | 2024-01-29 09:59 | P.CRDCN ---
History of Present Illness Consult date: 01/29/24 Consult reason: congestive heart failure History of present illness: This is a 58-year-old male patient of Dr. Gates with past medical history of diabetes mellitus type 2 since age 45, asthma, hypertension, hyperlipidemia, chronic systolic heart failure, cardiomyopathy with a EF of 15 to 20% initially and repeat 20 to 25%, three-vessel coronary artery disease with chronic total occlusion of the right coronary artery, 80 to 90% stenosis of the circumflex and diffuse disease involving the LAD. Patient had a hospitalization in September of this year at which time he was diagnosed with ischemic cardiomyopathy the acute acute heart failure and underwent cardiac catheterization. Patient also had acute kidney injury. He had a follow-up appointment with Dr. Gates on 10/24/2023 with plan for eventually undergoing Lexiscan stress test to evaluate ischemia in the circumflex distribution considering angioplasty. Patient did not have this done. He was also to have a repeat echocardiogram in 90 days which has not been done. Patient had a LifeVest at the time of discharge from the hospital. Patient has stopped taking all of his medications and presented to the hospital due to lower extremity edema. No significant shortness of b reath, no chest pain. Patient states he does not have much swelling in his ankles right now but he normally keeps fluid in his abdomen and he has scrotal edema. Blood pressure 121/86, heart rate 85, afebrile, pulse ox 98% on room air. Patient states that he had a stress test scheduled but he had to cancel it for some reason he cannot remember now. He denies any tobacco use and no alcohol use. He states he smokes marijuana most days. Patient is s/p calcium gluconate, IV magnesium and IV potassium and started on IV Lasix 40 mg every 12 hours. EKG: Sinus rhythm with IVCD. Chest x-ray: Correlate for recurrent CHF and pulmonary vascular congestion. Small to moderate right and small left pleural effusions with adjacent atelectasis and/or consolidation. Laboratory studies: WBC 3.5, hemoglobin 9.6, platelet count 164. Sodium 138, potassium 3.2, creatinine 0.8. Magnesium 1.5. Troponin negative x 1. proBNP 8500. Home cardiac medications: Aspirin 162 mg as needed Echocardiogram performed 09/06/2023 revealed EF of 20 to 25%, moderate to severe mitral regurgitation. Cardiac catheterization performed 09/05/2023 revealed three-vessel coronary artery disease with chronic occlusion of the right coronary artery and significant disease involving the circumflex and diffuse disease involving the LAD. Review Of Systems: At the time of my exam: CONSTITUTIONAL: Denies fever or chills. HEENT: Denies blurred vision, vision changes, or eye pain. Denies hemoptysis CARDIOVASCULAR: Denies chest pain. Denies orthopnea. Denies PND. Denies palpitations RESPIRATORY: Denies shortness of breath. GASTROINTESTINAL: Denies abdominal pain. Denies nausea or vomiting. Reports abdominal fluid. Reports scrotal edema HEMATOLOGIC: Denies bleeding disorders. GENITOURINARY: Denies any blood in urine. SKIN: Denies puritis. Denies rash. Physical examination: Gen: This is a 58-year-old male in no acute distress VS: reviewed HEENT: Head is atraumatic, normocephalic. Pupils equal, round. Sclerae is anic teric. NECK: Supple. No JVD. LUNGS: Clear to auscultation. No wheezes or rhonchi. No intercostal retractions. HEART: Regular rate and rhythm. No murmur. ABDOMEN: Soft No tenderness. Positive ascites. Positive scrotal edema. EXTREMITIES: [place] wrap's to bilateral lower extremities, minimal pedal edema. No calf tenderness. NEUROLOGICAL: Patient is awake, alert and oriented x3. Assessment: Acute on chronic systolic heart failure Ischemic cardiomyopathy Diabetes mellitus type 2 Asthma Hypertension Hyperlipidemia Coronary artery disease with triple-vessel disease with chronic total occlusion of the right coronary artery, 80 to 90% stenosis of the circumflex and diffuse disease involving the LAD Medical noncompliance Plan: Continue patient on IV Lasix 40 mg every 12 hours Monitor SHARRON, daily weights, electrolytes and renal function Plan to add appropriate medications tomorrow depending on electrolytes and renal function Schedule patient for Lexiscan Cardiolite stress test Further recommendations to follow based upon clinical course Thank you kindly for this consultation. Nurse practitioner note has been reviewed, I agree with documented findings and plan of care. Patient was seen and examined. 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 Past Anesthesia/Blood Transfusion Reactions: No Reported Reaction Past Psychological History: Depression Smoking Status: Vaper Past Alcohol Use History: None Reported, Occasional Past Drug Use History: Marijuana Additional Drug Use History / Comment(s): patient doesn't smoke cigarettes but occassionally smokes marijuana Medications and Allergies Home Medications Medication Instructions Recorded Confirmed Type Aspirin 162 mg PO Q8H PRN 01/28/24 01/28/24 History Allergies Allergy/AdvReac Type Severity Reaction Status Date / Time Penicillins Allergy Rash/Hives Verified 01/28/24 19:27 Sulfa (Sulfonamide Allergy Rash/Hives Verified 01/28/24 19:27 Antibiotics) indomethacin AdvReac Unknown Verified 01/28/24 17:12 Physical Exam Vitals: Vital Signs Temp Pulse Pulse Resp BP BP Pulse Ox 01/29/24 08:00 97.5 F L 85 18 121/86 98 01/29/24 02:24 97.5 F L 95 18 117/83 100 01/28/24 22:38 97.7 F 82 18 113/82 100 01/28/24 21:54 86 18 119/82 100 01/28/24 20:48 92 16 123/91 100 01/28/24 19:21 83 14 116/87 97 01/28/24 18:30 85 18 128/97 94 L 01/28/24 18:00 86 18 114/91 95 01/28/24 17:06 97.5 F L 89 20 118/81 94 L Intake and Output 01/28/24 01/29/24 01/29/24 22:59 06:59 14:59 Other: Voiding Method Urinal # Voids 1 Weight 104.326 kg 111.5 kg Results 01/28/24 17:45 01/28/24 17:45 Cardiac Enzymes 01/28/24 01/28/24 Range/Units 17:45 17:45 AST 24 (17-59) U/L Troponin I <0.012 (0.000-0.034) ng/mL Coagulation 01/28/24 Range/Units 17:45 PT 11.9 (10.0-12.5) sec APTT 25.9 (22.0-30.0) sec CBC 01/28/24 Range/Units 17:45 WBC 3.5 L (3.8-10.6) k/uL RBC 3.50 L (4.30-5.90) m/uL Hgb 9.6 L (13.0-17.5) gm/dL Hct 32.2 L (39.0-53.0) % Plt Count 164 (150-450) k/uL Comprehensive Metabolic Panel 01/28/24 Range/Units 17:45 Sodium 138 (137-145) mmol/L Potassium 3.2 L (3.5-5.1) mmol/L Chloride 115 H (98-107) mmol/L Carbon Dioxide 18 L (22-30) mmol/L BUN 19 (9-20) mg/dL Creatinine 0.80 (0.66-1.25) mg/dL Glucose 73 L (74-99) mg/dL Calcium 6.8 L (8.4-10.2) mg/dL AST 24 (17-59) U/L ALT 8 (4-49) U/L Alkaline Phosphatase 144 H (38-126) U/L Total Protein 5.7 L (6.3-8.2) g/dL Albumin 2.7 L (3.5-5.0) g/dL Current Medications Generic Name Dose Route Start Last Admin Trade Name Freq PRN Reason Stop Dose Admin Furosemide 40 mg 01/29/24 09:00 01/29/24 08:17 Furosemide 10 Mg/Ml 4 Ml Vial IV 40 mg Q12HR ROSE Administration Insulin Aspart 0 unit 01/29/24 07:30 01/29/24 06:15 Insulin Aspart (Novolog) 100 Unit/Ml Vial SQ Not Given ACHS COUNTS INCLUDE 234 BEDS AT THE [facility] Protocol Naloxone HCl 0.2 mg 01/28/24 19:47 Naloxone 0.4 Mg/Ml 1 Ml Vial IV Q2M PRN Opioid Reversal Intake and Output 01/28/24 01/29/24 01/29/24 22:59 06:59 14:59 Other: Voiding Method Urinal # Voids 1 Weight 104.326 kg 111.5 kg 01/28/24 17:45 01/28/24 17:45
[2024-01-29 10:48] LABS: ALT 9 U/L (10-49); AST 29 U/L (14-35); Albumin 3.6 g/dL (3.8-4.9); Albumin/Globulin Ratio 1.16 Ratio (1.60-3.17); Alkaline Phosphatase 192 U/L (41-126); BUN/Creat Ratio 15.64 Ratio (12.00-20.00); Blood Urea Nitrogen 21.9 mg/dL (9.0-27.0); Calcium 8.4 mg/dL (8.7-10.3); Carbon Dioxide 22.3 mmol/L (21.6-31.8); Chloride 104 mmol/L (96-109); Globulin 3.1 g/dL (1.6-3.3); Glucose 92 mg/dL (70-110); Potassium 4.5 mmol/L (3.5-5.5); Sodium 136 mmol/L (135-145); Total Bilirubin 1.5 mg/dL (0.3-1.2); Total Protein 6.7 g/dL (6.2-8.2)
[2024-01-29 11:42] LABS: Glucose,Whole Blood 107 mg/dL (70-110)
[2024-01-29 13:39] VITALS: BMI 37.3
[2024-01-29] MEDS: ASPIRIN 81 MG PO SCH (14:40)
[2024-01-29] MEDS: HEPARIN SODIUM,PORCINE 5,000 UNIT/ML 1 ML VIAL SQ SCH (14:40)
[2024-01-29] MEDS: PANTOPRAZOLE 40 MG TABLET PO SCH (14:41)
[2024-01-29 16:32] LABS: Glucose,Whole Blood 131 mg/dL (70-110)
[2024-01-29] MEDS: carvediloL 3.125 MG TAB PO SCH (17:10)
[2024-01-29 20:58] LABS: Glucose,Whole Blood 99 mg/dL (70-110)
[2024-01-29] MEDS: ATORVASTATIN 20 MG TAB PO SCH (22:29)
--- NOTE | 2024-01-29 23:58 | HP ---
HISTORY AND PHYSICAL CHIEF COMPLAINT: Shortness of breath and syncope. HISTORY OF PRESENT ILLNESS: This is a 58-year-old gentleman with a past medical history of multiple medical problems including diabetes mellitus, history of renal disease, is being followed by Dr. Banuelos in the outpatient setting. He was apparently not very compliant with medications. The patient has significant low ejection fraction, currently around 20% to 25%. The patient also had triple-vessel coronary artery disease, possibility of cardiomyopathy. The patient was recommended Lexiscan to evaluate the carotid vasculature, but the patient was not compliant. The patient is complaining of shortness of breath, syncope, weakness, and bilateral leg swelling. The patient came to [facility] and admitted for further evaluation and treatment. There is no history of any fever, rigors, or chills at this time. PAST MEDICAL HISTORY: History of diabetes mellitus, hypertension, hyperlipidemia, history of CHF. HOME MEDICATIONS: Aspirin. ALLERGIES: Penicillin. Rest of allergy history and home medications reviewed. REVIEW OF SYSTEMS: Fourteen-point review is negative except as mentioned earlier. FAMILY HISTORY: No history of heart disease or strokes in the family. SOCIAL HISTORY: History of vaping. PHYSICAL EXAMINATION: VITAL SIGNS: Pulse 85, blood pressure 121/80, respirations 18. HEENT: Conjunctivae normal. NECK: No JVD. CARDIOVASCULAR: No murmurs. RESPIRATIONS: Breath sounds diminished at the bases. A few scattered rhonchi and crackles. ABDOMEN: Soft, obese. LEGS: Minimal edema. NERVOUS SYSTEM: Diffusely weak. SKIN: No ulcer, rash, bleeding. JOINTS: No active deforming arthropathy. LABORATORY DATA: WBC 3.8, hemoglobin 9.6. ASSESSMENT: 1. Congestive heart failure acute exacerbation with acute on chronic systolic dysfunction. 2. Noncompliance. 3. Ischemic cardiomyopathy. 4. Hypomagnesemia. 5. Hypokalemia. 6. Anemia. 7. Diabetes mellitus, type 2. 8. Hypertension. 9. History of depression. 10.History of vaping. RECOMMENDATIONS AND DISCUSSION: This is a 58-year-old gentleman presented with multiple complex medical issues, we will monitor the patient closely. I would recommend to continue with IV Lasix. Cardiology recommended 2D echo and stress echo. Otherwise, continue to monitor. Prognosis guarded because of multiple complex medical issues. Further recommendations to follow. See orders for further details. Importance of compliance also stressed. MMODL / IJN: [id number] /
[2024-01-30 05:56] LABS: Glucose,Whole Blood 84 mg/dL (70-110)
[2024-01-30 08:52] VITALS: RESP 16; TEMP 97.5
[2024-01-30 10:28] LABS: Basophils # (A) 0.04 X 10*3/uL (0.00-0.10); Basophils % (A) 1.1 %; Eosinophils % (A) 5.4 %; HCT 29.7 % (39.6-50.0); HGB 8.9 g/dL (13.0-17.0); Lymphocytes # (A) 0.65 X 10*3/uL (0.90-5.00); Lymphocytes % (A) 17.7 %; MCH 27.1 pg (27.0-32.0); MCV 90.5 FL (80.0-97.0); Mean Platelet Volume 9.2 FL (9.5-12.2); Monocytes # (A) 0.34 X 10*3/uL (0.20-1.00); Monocytes % (A) 9.3 %; NRBC Per 100 WBC 0 X 10*3/uL (0.00-0.01); Neutrophils # (A) 2.43 X 10*3/uL (1.80-7.70); Neutrophils % (A) 66.2 %; Platelet Count 151 X 10*3/uL (140-440); RBC 3.28 X 10*6/uL (4.40-5.60); WBC 3.67 X 10*3/uL (4.50-10.00)
[2024-01-30 10:43] LABS: ALT 9 U/L (10-49); AST 22 U/L (14-35); Albumin 3.6 g/dL (3.8-4.9); Albumin/Globulin Ratio 1.12 Ratio (1.60-3.17); Alkaline Phosphatase 177 U/L (41-126); BUN/Creat Ratio 15.38 Ratio (12.00-20.00); Blood Urea Nitrogen 24.6 mg/dL (9.0-27.0); Calcium 8.5 mg/dL (8.7-10.3); Carbon Dioxide 23.9 mmol/L (21.6-31.8); Chloride 102 mmol/L (96-109); Globulin 3.2 g/dL (1.6-3.3); Glucose 86 mg/dL (70-110); Potassium 4.6 mmol/L (3.5-5.5); Sodium 136 mmol/L (135-145); Total Bilirubin 1.4 mg/dL (0.3-1.2); Total Protein 6.8 g/dL (6.2-8.2)
[2024-01-30 12:11] LABS: Glucose,Whole Blood 96 mg/dL (70-110)
--- NOTE | 2024-01-30 13:24 | NM ---
EXAMINATION TYPE: NM stress lexiscan cardiolite DATE OF EXAM: 01/30/2024 COMPARISON: NONE CLINICAL INDICATION: Male, 58 years old with history of cad, CHF; TECHNIQUE: After the intravenous administration of 10.2 mCi Tc 99m Sestamibi - Cardiolite resting SP ECT images acquired 45 minutes post injection. The patient received 0.4mg Lexiscan, 25.8 mCi Tc 99m Sestamibi - Stress images obtained [address] injection FINDINGS: Review of stress and rest SPECT images demonstrates fixed defect along the mid to basal inferior wall which is larger on rest suggesting attenuation artifact. There is also a large fixed defect involvin g the inferior and inferolateral wall. This may show slight accentuation at the apex on stress. Gated analysis shows global hypokinesis with lack of augmentation of the inferior wall. Estimated left trisha tricular ejection fraction of 32 %. TID is calculated at 1.22, abnormally elevated. IMPRESSION: 1. Correlate for large area of previous inferior wall infarct. Possible minimal dale-infarct ischemia at the apex. 2. In addition, the transient ischemic dilatation ratio is elevated. This can be seen in the setting of multivessel, global inducible ischemia. Further evaluation as clinically indicated. 3. Given the diminished LVEF of 32%, correlate for ischemic cardiomyopathy
--- NOTE | 2024-01-30 13:35 | CA ---
Lexiscan Nuclear Stress Test Report Name: Isiah Rodríguez Exam Date: 01/30/2024 09:35 Exam Location: [facility] Ht (in): 68 Wt (lb): 245 BSA: 2.23 Ordering Phys: Karishma Rain Referring Phys: ,, Technologist: Kt Pratt Age: 58 Gender: M : 1965 Procedure CPT: Indications: Reflex order-Stress test ICD-10 Codes: Patient History: CHEST PAIN, DIFFICULTY IN BREATHING, DIABETES, HYPERCHOLESERTOLEMIA, FAMILY HX OF HEART DISEASE, MARIJUANA SMOKER, ASTHMA Medications: Meds past 24 hrs: Pretest Chest Pain: STRESS TEST Lexiscan Protocol Exercise Duration (min:sec): 02:[address] Depressions (mm): Angina Score: Ha Score: Resting HR (bpm): 84 Peak HR (bpm): 89 Resting BP (mmHg): 103 / 80 Peak BP (mmHg): 106 / 67 MPHR: 163 Target HR: 139 % MPHR: 55 METS: 1.0 Total Dose: Peak Dose: Atropine: Double Product: 9434 BP Response: Stress Termination: INFUSION COMPLETE Stress Symptoms: CHEST PRESSURE Stress Summary: ECG ANALYSIS Resting ECG: Stress ECG: CONCLUSIONS RESTING EKG: Normal sinus rhythm with incomplete left bundle branch, Patient recieved IV infusion of Lexiscan 0.4mg and at peak infusion STRESS EKG showed: [No significant ST-T wave changes diagnostic for ischemia by ST segment analysis] ARRYTHMIAS: [No ectopic rhythms or sustained arrythmias] CONCLUSION: 1. Normal hemodynamic and clinical response to Lexiscan infusion. 2. Non-ischemic EKG response to lexiscan infusion Please refer to the nuclear imaging portion of this stress test for complete interpretation of the study. Dr Spenser Storm (Electronically Signed) Final Date: 30 January 2024 13:34
[2024-01-30] MEDS: SPIRONOLACTONE 25 MG TAB PO SCH (14:17)
--- NOTE | 2024-01-30 15:02 | P.PN ---
Subjective Progress Note Date: 01/30/24 Consult reason: congestive heart failure History of present illness: This is a 58-year-old male patient of Dr. Gates with past medical history of diabetes mellitus type 2 since age 45, asthma, hypertension, hyperlipidemia, chronic systolic heart failure, cardiomyopathy with a EF of 15 to 20% initially and repeat 20 to 25%, three-vessel coronary artery disease with chronic total occlusion of the right coronary artery, 80 to 90% stenosis of the circumflex and diffuse disease involving the LAD. Patient had a hospitalization in September of this year at which time he was diagnosed with ischemic cardiomyopathy the acute acute heart failure and underwent cardiac catheterization. Patient also had acute kidney injury. He had a follow-up appointment with Dr. Gates on 10/24/2023 with plan for eventually undergoing Lexiscan stress test to evaluate ischemia in the circumflex distribution considering angioplasty. Patient did not have this done. He was also to have a repeat echocardiogram in 90 days which has not been done. Patient had a LifeVest at the time of discharge from the hospital. Patient has stopped taking all of his medications and presented to the hospital due to lower extremity edema. No significant shortness of breath, no chest pain. Patient states he does not have much swelling in his ankles right now but he normally keeps fluid in his abdomen and he has scrotal edema. Blood pressure 121/86, heart rate 85, afebrile, pulse ox 98% on room air. Patient states that he had a stress test scheduled but he had to cancel it for some reason he cannot remember now. He denies any tobacco use and no alcohol use. He states he smokes marijuana most days. Patient is s/p calcium gluconate, IV magnesium and IV potassium and started on IV Lasix 40 mg every 12 hours. EKG: Sinus rhythm with IVCD. Chest x-ray: Correlate for recurrent CHF and pulmonary vascular congestion. Small to moderate right and small left pleural effusions with adjacent atelectasis and/or consolidation. Laboratory studies: WBC 3.5, hemoglobin 9.6, platelet count 164. Sodium 138, potassium 3.2, creatinine 0.8. Magnesium 1.5. Troponin negative x 1. proBNP 8500. Home cardiac medications: Aspirin 162 mg as needed Echocardiogram performed 09/06/2023 revealed EF of 20 to 25%, moderate to severe mitral regurgitation. Cardiac catheterization performed 09/05/2023 revealed three-vessel coronary artery disease with chronic occlusion of the right coronary artery and significant disease involving the circumflex and diffuse disease involving the LAD. 01/29 Patient is seen today in follow-up. Shortness of breath is better. He is scheduled for Lexiscan stress test today. No chest pain. Blood pressure 105/69, heart rate 84, pulse ox 99% on room air. Patient is currently on IV Lasix 40 mg every 12 hours. Repeat blood work pending at the time of this dictation Physical examination: Gen: This is a 58-year-old male in no acute distress VS: reviewed HEENT: Head is atraumatic, normocephalic. Pupils equal, round. Sclerae is anicteric. NECK: Supple. No JVD. LUNGS: Clear to auscultation. No wheezes or rhonchi. No intercostal retractions. HEART: Regular rate and rhythm. No murmur. ABDOMEN: Soft No tenderness. Positive ascites. Positive scrotal edema. EXTREMITIES: [place] wrap's to bilateral lower extremities, minimal pedal edema. No calf tenderness. NEUROLOGICAL: Patient is awake, alert and oriented x3. Assessment: Acute on chronic systolic heart failure Ischemic cardiomyopathy Diabetes mellitus type 2 Asthma Hypertension Hyperlipidemia Coronary artery disease with triple-vessel disease with chronic total occlusion of the right coronary artery, 80 to 90% stenosis of the circumflex and diffuse disease involving the LAD Medical noncompliance Plan: Continue patient on IV Lasix 40 mg every 12 hours for another 24 hours Monitor SHARRON, daily weights, electrolytes and renal function Schedule patient for Lexiscan Cardiolite stress test today Further recommendations to follow based upon clinical course Thank you kindly for this consultation. Nurse practitioner note has been reviewed, I agree with documented findings and plan of care. Patient was seen and examined. Objective - Vital Signs Vital signs: Vital Signs Temp 97.5 F L 01/30/24 07:55 Pulse 84 01/30/24 07:55 Resp 16 01/30/24 07:55 BP 105/69 01/30/24 07:55 Pulse Ox 99 01/30/24 07:55 FiO2 Intake & Output 01/29/24 01/30/24 01/30/24 18:59 06:59 18:59 Output Total 320 Balance -320 Weight 111.5 kg 104 kg Output: Urine 320 Other: Voiding Method Urinal - Labs CBC & Chem 7: 01/30/24 06:12 01/30/24 06:12 Labs: Abnormal Lab Results - Last 24 Hours (Table) 01/29/24 01/29/24 Range/Units 06:25 16:31 Est GFR (CKD-EPI) 59 L (>=60) POC Glucose (mg/dL) 131 H (70-110) mg/dL Calcium 8.4 L (8.7-10.3) mg/dL Total Bilirubin 1.5 H (0.3-1.2) mg/dL ALT 9 L (10-49) U/L Alkaline Phosphatase 192 H (41-126) U/L Albumin 3.6 L (3.8-4.9) g/dL Albumin/Globulin Ratio 1.16 L (1.60-3.17) Ratio
[2024-01-30] MEDS: ISOSORBIDE MONONITRATE ER 15 MG TAB PO SCH (15:49)
[2024-01-30 17:06] LABS: Glucose,Whole Blood 152 mg/dL (70-110)
[2024-01-30 17:32] VITALS: BP 116/83; PULSE 86
[2024-01-31] MEDS ORDERED: DAPAGLIFLOZIN PROPANEDIOL 10 MG TABLET PO SCH (09:00)
--- NOTE | 2024-01-31 18:38 | P.DS ---
Providers Date of admission: 01/28/24 19:47 Expected date of discharge: 01/30/24 Attending physician: Zay Pal Consults: 01/28/24 19:47 Consult Physician Routine Consulting Provider: Gerson Gates Consult Reason/Comments: CHF Do you want consulting provider notified?: Yes Primary care physician: Patricio Banuelos [place] [facility] Course: Final diagnosis Congestive heart failure acute exacerbation with acute on chronic systolic dysfunction Noncompliance with medications and follow-up History of ischemic cardiomyopathy Hypomagnesemia Hypokalemia Anemia of chronic disease Diabetes mellitus, type II, uncontrolled with hyperglycemia Hypertension History of depression History of vaping Obesity with a BMI of 34.9 GI prophylaxis DVT prophylaxis Full code Discharge disposition Patient is being discharged in a stable condition with guarded prognosis to home. Patient will follow-up with Dr. Banuelos in the outpatient setting upon discharge. Patient is to continue with current cardiology medications and close outpatient follow-up with the cardiology clinic as scheduled. Total time taken is greater than 35 minutes. Hospital course This is a 58-year-old male who was recently admitted with lower extremity swelling along with testicular swelling with concerns of CHF acute exacerbation patient maintained on diuresis with cardiology following underwent stress test and patient has been instructed to follow-up with cardiology in the outpatient setting. Patient with significant noncompliance history as patient has difficulty with transportation and compliance with follow-up along with medications due to cost patient having some continued testicular swelling although improving is being transition to Bumex along with other cardiac medications and has been cleared for discharge. Patient instructed to follow-up with primary care provider as well as cardiology outpatient setting. Please refer to cardiology note for further HPI. Currently no reports of chest pain, shortness of breath, or palpitations. Patient is afebrile. No reports of nausea or vomiting and patient is tolerating diet. Patient will be discharged home today. Guarded prognosis and high risk for readmission Physical exam: Gen: This is a 58-year-old male who is awake, alert and oriented x 3, well- developed, well-nourished, obese, elderly appearing HEENT: Head is atraumatic, normocephalic. Pupils equal, round. Sclerae is anicteric. NECK: Supple. No JVD. No lymphadenopathy. No thyromegaly. LUNGS: Diminished breath sounds bilaterally otherwise clear to auscultation. No wheezes or rhonchi. No intercostal retractions. HEART: Regular rate and rhythm. No murmur. ABDOMEN: Soft. Obese bowel sounds are present. No masses. No tenderness. EXTREMITIES: No pedal edema. No calf tenderness. Mild lower extremity edema, 1+ pitting noted with Orlando wraps minimally improved from admission NEUROLOGICAL: Patient is awake, alert and oriented x3. Cranial nerves 2 through 12 are grossly intact. Please refer to medication reconciliation sheet for a list of medications. The impression and plan of care has been dictated by Yandy Martínez, Nurse Practitioner as directed. Dr. Demarco MD I have performed a history and examination and MDM of this patient, discussed the same with the dictator, and agree with the dictator's assessment and plan as written ,documented as a scribe. Based on total visit time, I have performed more than 50% of the visit. Patient Condition at Discharge: Stable Plan - Discharge Summary New Discharge Prescriptions: New Spironolactone [Aldactone] 25 mg PO DAILY #30 tab Bumetanide [Bumex] 1 mg PO DAILY #30 tablet Dapagliflozin Propanediol [Farxiga] 10 mg PO DAILY #30 tab Isosorbide Mononitrate ER [Imdur] 15 mg PO DAILY #30 tab Atorvastatin [Lipitor] 20 mg PO HS #30 tab carvediloL [Coreg] 3.125 mg PO BID-W/MEALS #60 tab Eplerenone [Inspra] 25 mg PO DAILY #30 tablet Continue Aspirin 162 mg PO Q8H PRN PRN Reason: Pain Discharge Medication List Aspirin 162 mg PO Q8H PRN 01/28/24 [History] Atorvastatin [Lipitor] 20 mg PO HS #30 tab 01/30/24 [Rx] Bumetanide [Bumex] 1 mg PO DAILY #30 tablet 01/30/24 [Rx] Dapagliflozin Propanediol [Farxiga] 10 mg PO DAILY #30 tab 01/30/24 [Rx] Eplerenone [Inspra] 25 mg PO DAILY #30 tablet 01/30/24 [Rx] Isosorbide Mononitrate ER [Imdur] 15 mg PO DAILY #30 tab 01/30/24 [Rx] Spironolactone [Aldactone] 25 mg PO DAILY #30 tab 01/30/24 [Rx] carvediloL [Coreg] 3.125 mg PO BID-W/MEALS #60 tab 01/30/24 [Rx] Follow up Appointment(s)/Referral(s): Patricio Banuelos DO [Primary Care Provider] - 1-2 days (Office closed at time of discharge. Please call office to make an appt.) [facility] Visiting Nurse, [NON-STAFF] - As Needed Spenser Storm MD [Medical Doctor] - 1 Week (Office closed at time of discharge, please call office to make an appt.) Ambulatory/Diagnostic Orders: Comprehensive Metabolic Panel [LAB.AMB] Time Frame: 1 Week, Location: None Selected Patient Instructions/Handouts: Heart Failure (DC) Activity/Diet/Wound Care/Special Instructions: Activity limited until follow-up Follow-up with primary care provider on discharge Follow-up with cardiology clinic in 1 week Repeat labs in 1 week Continue taking medications as prescribed Orlando wrap and elevate lower extremities while at rest Elevate scrotum while at rest Discharge Disposition: HOME WITH HOME HEALTH SERVICES
== END 2024-01-30 19:05 | disposition home health service (06) | DRG 194 ==
LOC: EC 17:05 → 4SSUR 19:47
PROVIDERS: ADMIT Hospitalist; ATTEND Hospitalist
DX: I11.0 Hypertensive heart disease with heart failure (principal); I50.23 Acute on chronic systolic (congestive) heart failure; E66.9 Obesity, unspecified; E78.5 Hyperlipidemia, unspecified; E83.42 Hypomagnesemia; E83.51 Hypocalcemia; E87.6 Hypokalemia; I25.10 Atherosclerotic heart disease of native coronary artery without angina pectoris; I25.5 Ischemic cardiomyopathy; D63.8 Anemia in other chronic diseases classified elsewhere; I25.82 Chronic total occlusion of coronary artery; E11.65 Type 2 diabetes mellitus with hyperglycemia; I34.0 Nonrheumatic mitral (valve) insufficiency; J45.909 Unspecified asthma, uncomplicated; I44.0 Atrioventricular block, first degree; N50.89 Other specified disorders of the male genital organs; Z68.34 Body mass index [BMI] 34.0-34.9, adult; Z91.128 Patient's intentional underdosing of medication regimen for other reason; Z91.190 Patient's noncompliance with other medical treatment and regimen due to financial hardship; Z88.0 Allergy status to penicillin; Z88.2 Allergy status to sulfonamides; Z79.82 Long term (current) use of aspirin; Z87.891 Personal history of nicotine dependence
CPT/HCPCS: 36415; 71046; 78452; 80053; 83735; 83880; 84484; 85025; 85610; 85730; 93005; 93017; 96365; 96366; 96368; 96375; 99291

== ENCOUNTER 2024-05-17 13:44 | Inpatient (IN) | payer OTHER ==
--- NOTE | 2024-05-17 14:26 | ED ---
General Adult HPI - General Chief complaint: Extremity Problem,Nontraumatic Stated complaint: Swelling Time Seen by Provider: 05/17/24 14:06 Source: patient, EMS, RN notes reviewed Mode of arrival: EMS Limitations: no limitations - History of Present Illness Initial comments: Patient is a 58-year-old male presenting to the emergency department with conc erns for swelling. Onset of symptoms was over the past couple of weeks. Patient does have generalized swelling including the abdomen, extremities and face. Patient does have history of both renal problems and CHF. Patient admits his mouth does feel a little bit dry. No fever. Patient denies dyspnea. - Related Data Home Medications Medication Instructions Recorded Confirmed Albuterol Inhaler [Ventolin Hfa 2 puff INHALATION RT-Q6H PRN 05/17/24 05/17/24 Inhaler] Aspirin EC [Ecotrin] 325 mg PO DAILY 05/17/24 05/17/24 DULoxetine HCL [Cymbalta] 60 mg PO DAILY 05/17/24 05/17/24 Furosemide [Lasix] 80 mg PO BID 05/17/24 05/17/24 Isosorbide Mononitrate ER [Imdur] 15 mg PO DAILY 05/17/24 05/17/24 Midodrine [ProAmatine] 5 mg PO AC-TID 05/17/24 05/17/24 Mupirocin 2% Oint [Bactroban 2% 1 applic TOPICAL TID 05/17/24 05/17/24 Oint] Simvastatin [Zocor] 20 mg PO HS 05/17/24 05/17/24 Tamsulosin [Flomax] 0.4 mg PO DAILY 05/17/24 05/17/24 Previous Rx's Medication Instructions Recorded Dapagliflozin Propanediol [Farxiga] 10 mg PO DAILY #30 tab 01/30/24 Spironolactone [Aldactone] 25 mg PO DAILY #30 tab 01/30/24 carvediloL [Coreg] 3.125 mg PO BID-W/MEALS #60 tab 01/30/24 Allergies Allergy/AdvReac Type Severity Reaction Status Date / Time Penicillins Allergy Rash/Hives Verified 05/17/24 14:56 Sulfa (Sulfonamide Allergy Rash/Hives Verified 05/17/24 14:56 Antibiotics) indomethacin AdvReac cannot Verified 05/17/24 14:56 take with another prescribed med Review of Systems ROS Statement: Those systems with pertinent positive or pertinent negative responses have been documented in the HPI. ROS Other: All systems not noted in ROS Statement are negative. Constitutional: Denies: fever Eyes: Denies: eye pain ENT: Denies: throat pain Respiratory: Reports: as per HPI Cardiovascular: Reports: edema. Denies: chest pain Gastrointestinal: Reports: as per HPI. 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 Past Anesthesia/Blood Transfusion Reactions: No Reported Reaction Past Psychological History: Depression Smoking Status: Vaper Past Alcohol Use History: None Reported, Occasional Past Drug Use History: Marijuana General Exam Limitations: no limitations General appearance: alert, in no apparent distress Head exam: Present: normocephalic Eye exam: Present: normal appearance ENT exam: Present: mucous membranes dry Neck exam: Present: normal inspection Respiratory exam: Present: normal lung sounds bilaterally Cardiovascular Exam: Present: regular rate, normal rhythm GI/Abdominal exam: Present: soft, distended (Ascites) Extremities exam: Present: pedal edema. Absent: calf tenderness Neurological exam: Present: alert Psychiatric exam: Present: normal affect, normal mood Skin exam: Present: normal color Course Vital Signs 05/17/24 05/17/24 13:54 15:14 Temperature 98.6 F Pulse Rate 81 89 Respiratory 22 22 Rate Blood Pressure 98/84 99/83 O2 Sat by Pulse 100 100 Oximetry EKG Findings - EKG Results: EKG: interpreted by ERMD (First-degree AV block with a NM of 218. Low QRS voltage. Lateral Q waves.), sinus rhythm, normal ST/T Medical Decision Making - Medical Decision Making Was pt. sent in by a medical professional or institution (, PA, SENIOR C WEB DEVELOPER, urgent care, hospital, or custodial...) When possible be specific @ -No Did you speak to anyone other than the patient for history (EMS, parent, family, police, friend...)? What history was obtained from this source @ -No Did you review nursing and triage notes (agree or disagree)? Why? @ -I reviewed and agree with nursing and triage notes Were old charts reviewed (outside hosp., previous admission, EMS record, old EKG, old radiological studies, urgent care reports/EKG's, custodial records)? Report findings @ -Previous x-ray reviewed. Does not show fluid overload similar to today Differential Diagnosis (chest pain, altered mental status, abdominal pain women, abdominal pain men, vaginal bleeding, weakness, fever, dyspnea, syncope, headache, dizziness, GI bleed, back pain, seizure, CVA, palpatations, mental health, musculoskeletal)? @ -Differential Dyspnea: Coronary syndrome, arrhythmia, tamponade, asthma, COPD, pulmonary embolism, pneumonia, pneumothorax, pulmonary effusion, anaphylaxis, diabetic ketoacidosis, flailed chest, pulmonary contusion, diaphragmatic rupture, anemia, neuromuscular, this is not meant to be an all-inclusive list. EKG interpreted by me (3pts min.). @ -As above X-rays interpreted by me (1pt min.). @ -Chest x-ray shows CHF CT interpreted by me (1pt min.). @ -None done U/S interpreted by me (1pt. min.). @ -None done What testing was considered but not performed or refused? (CT, X-rays, U/S, labs)? Why? @ -None What meds were considered but not given or refused? Why? @ -None Did you discuss the management of the patient with other professionals (professionals i.e. , PA, SENIOR C WEB DEVELOPER, lab, RT, psych nurse, social research assistant, principal systems engineer, teacher, chief media officer, case reviewer)? Give summary @ -Case was discussed with practitioner Kim Teixeira, covering Dr. Pal who will admit covering Dr. Banuelos Was smoking cessation discussed for >3mins.? @ -No Was critical care preformed (if so, how long)? @ -No Were there social determinants of health that impacted care today? How? (Homelessness, low income, unemployed, alcoholism, drug addiction, transportation, low edu. Level, literacy, decrease access to med. care, skilled nursing, rehab)? @ -No Was there de-escalation of care discussed even if they declined (Discuss DNR or withdrawal of care, Hospice)? DNR status @ -No What co-morbidities impacted this encounter? (DM, HTN, Smoking, COPD, CAD, Cancer, CVA, ARF, Chemo, Hep., AIDS, mental health diagnosis, sleep apnea, morbid obesity)? @ -None Was patient admitted / discharged? Hospital course, mention meds given and route, prescriptions, significant lab abnormalities, going to OR and other pertinent info. @ -Patient presents with generalized edema and anasarca. Evidence of CHF with blood work and chest x-ray. Patient will be admitted with diuresis. Admission orders written. Consults will be placed. Undiagnosed new problem with uncertain prognosis? @ -No Drug Therapy requiring intensive monitoring for toxicity (Heparin, Nitro, Insulin, Cardizem)? @ -No Were any procedures done? @ -No Diagnosis/symptom? @ -CHF Acute, or Chronic, or Acute on Chronic? @ -Acute Uncomplicated (without systemic symptoms) or Complicated (systemic symptoms)? @ -Complicated with anasarca Side effects of treatment? @ -No Exacerbation, Progression, or Severe Exacerbation? @ -No Poses a threat to life or bodily function? How? (Chest pain, [place], [place], pneumonia, PE, COPD, DKA, ARF, appy, cholecystitis, CVA, Diverticulitis, Homicidal, Suicidal, threat to staff... and all critical care pts) @ -Threat to cardiac function - Lab Data Result diagrams: 05/17/24 14:32 05/17/24 14:32 Lab Results 05/17/24 05/17/24 05/17/24 Range/Units 14:32 14:32 14:32 WBC 3.2 L (3.8-10.6) k/uL RBC 2.91 L (4.30-5.90) m/uL Hgb 8.7 L (13.0-17.5) gm/dL Hct 27.7 L (39.0-53.0) % MCV 95.2 (80.0-100.0) fL MCH 29.8 (25.0-35.0) pg MCHC 31.3 (31.0-37.0) g/dL RDW 14.8 (11.5-15.5) % Plt Count 162 (150-450) k/uL MPV 7.5 Neutrophils % (Manual) 81 % Lymphocytes % (Manual) 12 % Monocytes % (Manual) 7 % Neutrophils # (Manual) 2.59 (1.3-7.7) k/uL Lymphocytes # (Manual) 0.38 L (1.0-4.8) k/uL Monocytes # (Manual) 0.22 (0-1.0) k/uL Nucleated RBCs 0 (0-0) /100 WBC Manual Slide Review Performed Hypochromasia Moderate Poikilocytosis (manual Present Target Cells Present PT 11.8 (10.0-12.5) sec INR 1.1 (<1.2) APTT 22.2 (22.0-30.0) sec Sodium 135 L (137-145) mmol/L Potassium 3.7 (3.5-5.1) mmol/L Chloride 101 (98-107) mmol/L Carbon Dioxide 29 (22-30) mmol/L Anion Gap 5 mmol/L BUN 55 H (9-20) mg/dL Creatinine 2.53 H (0.66-1.25) mg/dL Est GFR (CKD-EPI)AfAm 31 (>60 ml/min/1.73 sqM) Est GFR (CKD-EPI)NonAf 27 (>60 ml/min/1.73 sqM) Glucose 93 (74-99) mg/dL Plasma Lactic Acid Kem (0.7-2.0) mmol/L Calcium 8.7 (8.4-10.2) mg/dL Magnesium 2.2 (1.6-2.3) mg/dL Total Bilirubin 1.7 H (0.2-1.3) mg/dL AST 43 (17-59) U/L ALT 17 (4-49) U/L Alkaline Phosphatase 188 H (38-126) U/L Troponin I (0.000-0.034) ng/mL NT-Pro-B Natriuret Pep 43990 pg/mL Total Protein 7.0 (6.3-8.2) g/dL Albumin 3.5 (3.5-5.0) g/dL 05/17/24 05/17/24 Range/Units 14:32 14:32 WBC (3.8-10.6) k/uL RBC (4.30-5.90) m/uL Hgb (13.0-17.5) gm/dL Hct (39.0-53.0) % MCV (80.0-100.0) fL MCH (25.0-35.0) pg MCHC (31.0-37.0) g/dL RDW (11.5-15.5) % Plt Count (150-450) k/uL MPV Neutrophils % (Manual) % Lymphocytes % (Manual) % Monocytes % (Manual) % Neutrophils # (Manual) (1.3-7.7) k/uL Lymphocytes # (Manual) (1.0-4.8) k/uL Monocytes # (Manual) (0-1.0) k/uL Nucleated RBCs (0-0) /100 WBC Manual Slide Review Hypochromasia Poikilocytosis (manual Target Cells PT (10.0-12.5) sec INR (<1.2) APTT (22.0-30.0) sec Sodium (137-145) mmol/L Potassium (3.5-5.1) mmol/L Chloride (98-107) mmol/L Carbon Dioxide (22-30) mmol/L Anion Gap mmol/L BUN (9-20) mg/dL Creatinine (0.66-1.25) mg/dL Est GFR (CKD-EPI)AfAm (>60 ml/min/1.73 sqM) Est GFR (CKD-EPI)NonAf (>60 ml/min/1.73 sqM) Glucose (74-99) mg/dL Plasma Lactic Acid Kem 0.9 (0.7-2.0) mmol/L Calcium (8.4-10.2) mg/dL Magnesium (1.6-2.3) mg/dL Total Bilirubin (0.2-1.3) mg/dL AST (17-59) U/L ALT (4-49) U/L Alkaline Phosphatase (38-126) U/L Troponin I <0.012 (0.000-0.034) ng/mL NT-Pro-B Natriuret Pep pg/mL Total Protein (6.3-8.2) g/dL Albumin (3.5-5.0) g/dL Disposition Clinical Impression: CHF (congestive heart failure) Disposition: ADMITTED IP TO THIS HOSP Is patient prescribed a controlled substance at d/c from ED?: No Referrals: Patricio Banuelos DO [Primary Care Provider] - 1-2 days Time of Disposition: 17:22
[2024-05-17 15:00] LABS: ALT 17 U/L (4-49); AST 43 U/L (17-59); African American GFR (CKD) 31 (>60 ml/min/1.73 sqM); Albumin 3.5 g/dL (3.5-5.0); Alkaline Phosphatase 188 U/L (38-126); Anion Gap 5 mmol/L; Blood Urea Nitrogen 55 mg/dL (9-20); Calcium 8.7 mg/dL (8.4-10.2); Carbon Dioxide 29 mmol/L (22-30); Chloride 101 mmol/L (98-107); Glucose 93 mg/dL (74-99); Magnesium 2.2 mg/dL (1.6-2.3); Non-African American GFR(CKD) 27 (>60 ml/min/1.73 sqM); Potassium 3.7 mmol/L (3.5-5.1); Sodium 135 mmol/L (137-145); Total Bilirubin 1.7 mg/dL (0.2-1.3)
[2024-05-17 15:03] LABS: INR 1.1 (<1.2); Partial Thromboplastin Time 22.2 sec (22.0-30.0); Prothrombin Time 11.8 sec (10.0-12.5)
[2024-05-17 15:08] LABS: NT-Pro-B-Type Natriuretic Pept 23700 pg/mL
[2024-05-17 15:42] LABS: HCT 27.7 % (39.0-53.0); HGB 8.7 gm/dL (13.0-17.5); Hypochromasia Moderate; MCH 29.8 pg (25.0-35.0); MCHC 31.3 g/dL (31.0-37.0); MCV 95.2 fL (80.0-100.0); Mean Platelet Volume 7.5; Platelet Count 162 k/uL (150-450); RBC 2.91 m/uL (4.30-5.90); RDW 14.8 % (11.5-15.5); WBC 3.2 k/uL (3.8-10.6)
--- NOTE | 2024-05-17 15:50 | XR ---
EXAMINATION TYPE: XR chest 2V DATE OF EXAM: 05/17/2024 COMPARISON: 01/28/2024 HISTORY: Weakness TECHNIQUE: Frontal and lateral views of the chest are obtained. FINDINGS: There is cardiomegaly and small bilateral pleural effusions. There is mild cephalization of pulmonary vasculature. The findings are suggestive of mild to moderate CHF. There is no pneumothorax. There is no airspace consolidation.. The osseous structures are intact IMPRESSION: Findings most consistent with [id number] CHF. [facility], , 05/17/2024 3:48 PM
[2024-05-17 16:18] LABS: Lymphocytes # (M) 0.38 k/uL (1.0-4.8); Monocytes # (M) 0.22 k/uL (0-1.0); Neutrophils # (M) 2.59 k/uL (1.3-7.7); Neutrophils % (M) 81 %; Nucleated Red Blood Cells 0 /100 WBC (0-0); Total Cells Counted 100
[2024-05-17 16:21] LABS: Target Cells Present
[2024-05-17 16:22] LABS: Poikilocytosis (M) Present
[2024-05-17] MEDS ORDERED: ALBUTEROL NEBULIZED 2.5 MG/3 ML INHALATION PRN (17:24)
[2024-05-17 17:39] LABS: Appearance,Urine Cloudy (Clear); Bacteria,Urine Rare /hpf; Bilirubin,Urine Negative (Negative); Blood,Urine Moderate (Negative); Budding Yeast,Urine Few /hpf; Color,Urine Yellow; Glucose,Urine (UA) Negative (Negative); Hyaline Casts,Urine 37 /lpf (0-2); Ketones,Urine Negative (Negative); Leukocyte Esterase,Urine Negative (Negative); Mucus,Urine Rare /hpf; Nitrite,Urine Negative (Negative); Protein,Urine 1+ (Negative); RBC,Urine 21 /hpf (0-5); Specific Gravity,Urine 1.014 (1.001-1.035); Squamous Epithelial Cell,Urine 3 /hpf (0-4); Urobilinogen,Urine <2.0 mg/dL (<2.0); WBC,Urine 9 /hpf (0-5)
[2024-05-17] MEDS: MIDODRINE 5 MG TAB PO SCH (18:04)
[2024-05-17] MEDS: ASPIRIN 325 MG TAB PO STA (18:05)
[2024-05-17] MEDS: carvediloL 3.125 MG TAB PO SCH (18:05)
[2024-05-17] MEDS: NITROGLYCERIN OINT 1 INCH/GM PACKET TOPICAL SCH (18:06)
[2024-05-17] MEDS: FUROSEMIDE 10 MG/ML 4 ML VIAL IV SCH (18:08)
[2024-05-17 20:04] LABS: Glucose,Whole Blood 117 mg/dL (70-110)
[2024-05-17] MEDS: ATORVASTATIN 10 MG TAB PO SCH (21:12)
--- NOTE | 2024-05-17 21:49 | HP ---
HISTORY AND PHYSICAL CHIEF COMPLAINT: Generalized swelling and shortness of breath. HISTORY OF PRESENT ILLNESS: This is a 58-year-old gentleman with a past medical history of multiple medical problems including CHF, diabetes mellitus, hypertension, was complaining of increasing shortness of breath and generalized swelling also. The patient has significant abdominal distention as well. 2D echo in August 2023 showed severe LV dysfunction with moderate mitral regurgitation, and tricuspid regurgitation also. The CT scan of the abdomen and pelvis done at the same time showed cirrhosis, hepatic morphology, large pleural effusion also noted. The most recent chest x-ray, which I reviewed personally showed significant features of CHF also. There is no history of any fever, rigors, or chills. PAST MEDICAL HISTORY: History of CHF, diabetes mellitus type 2. Rest of the history and rest of the chart is also reviewed. HOME MEDICATIONS: Reviewed include Primatene, dose and rest of medications reviewed. ALLERGIES: Penicillin. FAMILY HISTORY: No history of heart disease or strokes in the family. SOCIAL HISTORY: History of THC and vaping. REVIEW OF SYSTEMS: A 14-point review of systems is negative except as mentioned earlier. PHYSICAL EXAMINATION: VITAL SIGNS: Pulse is 89, blood pressure 90/83, respirations 20. HEENT: Conjunctivae normal. NECK: No JVD. CARDIOVASCULAR: S1, S2. RESPIRATIONS: Breath sounds diminished at the bases. A few scattered rhonchi and crackles. ABDOMEN: Distended, tense. Ascites present. LEGS: Bilateral leg edema. NERVOUS SYSTEM: Diffusely weak. SKIN: No ulcer, rash, bleeding. JOINTS: No active deforming arthropathy. LABORATORY DATA: Creatinine 2.53, WBC 3.2. ASSESSMENT: 1. Shortness of breath, possibly congestive heart failure acute exacerbation. Acute on chronic systolic dysfunction. 2. Possible cardiomyopathy. 3. Possible cirrhosis of liver with tense ascites. 4. Chronic kidney disease, stage 3. 5. Diabetes mellitus, type 2. 6. Multiple complex medical issues. RECOMMENDATIONS AND DISCUSSION: This is a 58-year-old gentleman, who presented with multiple complex medical issues, we will monitor the patient closely. I would recommend to initiate intravenous Lasix and otherwise Cardiology consultation. I would also recommend Interventional Radiology for ascitic fluid study as well. Other than that, Nephrology is also consulted. Prognosis extremely guarded because of multiple complex medical issues. Further recommendations to follow. I would also recommend to continue to monitor acute hepatitis panel also. Prognosis guarded. Further recommendations to follow. MMODL / IJN: [id number] /
[2024-05-18 03:13] LABS: Hepatitis A Antibody IgM Nonreactive (Nonreactive); Hepatitis B Core IgM Nonreactive (Nonreactive); Hepatitis B Surface Antigen Nonreactive (Nonreactive); Hepatitis C IgG Antibody Nonreactive (Nonreactive)
[2024-05-18 06:03] LABS: Glucose,Whole Blood 119 mg/dL (70-110)
[2024-05-18 07:37] LABS: Basophils % (A) 1 %; Eosinophils # (A) 0.1 k/uL (0-0.7); Eosinophils % (A) 2 %; HCT 29.5 % (39.0-53.0); HGB 9.1 gm/dL (13.0-17.5); Hypochromasia Moderate; Lymphocytes # (A) 0.4 k/uL (1.0-4.8); Lymphocytes % (A) 10 %; MCH 29.3 pg (25.0-35.0); MCHC 30.8 g/dL (31.0-37.0); MCV 94.9 fL (80.0-100.0); Mean Platelet Volume 7.7; Monocytes # (A) 0.2 k/uL (0-1.0); Monocytes % (A) 6 %; Neutrophils % (A) 78 %; Platelet Count 212 k/uL (150-450); RDW 14.6 % (11.5-15.5); WBC 3.9 k/uL (3.8-10.6)
[2024-05-18 07:59] LABS: African American GFR (CKD) 29 (>60 ml/min/1.73 sqM); Anion Gap 8 mmol/L; Blood Urea Nitrogen 54 mg/dL (9-20); Carbon Dioxide 31 mmol/L (22-30); Chloride 97 mmol/L (98-107); Glucose 117 mg/dL (74-99); Non-African American GFR(CKD) 25 (>60 ml/min/1.73 sqM); Potassium 4.5 mmol/L (3.5-5.1); Sodium 136 mmol/L (137-145)
[2024-05-18] MEDS ORDERED: ASPIRIN 325 MG TAB PO SCH (09:00)
[2024-05-18] MEDS ORDERED: DAPAGLIFLOZIN PROPANEDIOL 10 MG TABLET PO SCH (09:00)
[2024-05-18] MEDS ORDERED: SPIRONOLACTONE 25 MG TAB PO SCH (09:00)
[2024-05-18] MEDS: DULoxetine HCL 60 MG CAPSULE.DR PO SCH (09:24)
[2024-05-18] MEDS: ASPIRIN 81 MG PO SCH (09:24)
[2024-05-18] MEDS: TAMSULOSIN 0.4 MG CAP.ER.24H PO SCH (09:24)
[2024-05-18] MEDS: ISOSORBIDE MONONITRATE ER 15 MG TAB PO SCH (10:04)
[2024-05-18 10:40] VITALS: BMI 41.3
--- NOTE | 2024-05-18 10:47 | P.CRDCN ---
History of Present Illness History of present illness: HISTORY OF PRESENT ILLNESS: This is a 58-year-old male with a past medical history significant for congestive heart failure, coronary artery disease, chronic kidney disease, hypertension, hyperlipidemia, diabetes, cardiomyopathy, and obesity. Patient follows in the office with Dr. Gates. We have been asked to see the patient in consultation for congestive heart failure. Patient examined at the bedside. Patient presented to the hospital with a chief complaint of shortness of breath. He also reports worsening lower extremity edema and weeping of his upper and lower extremities. Patient was found to be in acute CHF and was started on IV Lasix. He continues to report shortness of breath this morning although improving. He denies any chest pain or pressure. The patient was last seen in the office in October 2023. At that time the patient was wearing a LifeVest. He states that he has since returned the LifeVest to [facility]. He reports that there was some talk about ICD implantation but the patient has been having some issues getting to the office and has not been able to make his follow-up appointments. DIAGNOSTICS: - EKG reveals sinus mechanism with no signs of acute ischemia - Chest xray findings consistent with mild to moderate CHF - Laboratory data: WBC 3.9. Hemoglobin 9.1. Platelet count 212. Sodium 136. Potassium 4.5. BUN 54. Creatinine 2.73. Troponin negative x 1. proBNP 23,700 - Current home cardiac medications include Farxiga 10 mg daily, Aldactone 25 mg daily, carvedilol 3.125 mg twice a day, Lasix 80 mg twice a day, simvastatin 20 mg at night, Imdur 15 mg daily, midodrine 5 mg 3 times a day - Most recent echocardiogram obtained in 09/2023 revealing ejection fraction 2024% with moderate to severe MR -Patient underwent Lexiscan stress test in January 2024 revealing large area of previous inferior wall infarct. Possible minimal dale-infarct ischemia at the apex. Transient ischemic dilatation ratio was elevated. - Cardiac catheterization history: September 2023 revealing three-vessel coronary artery disease with chronic occlusion of the right coronary artery and significant disease involving the circumflex coronary artery and diffuse disease involving the LAD. Medical management was recommended. REVIEW OF SYSTEMS: At the time of my exam: CONSTITUTIONAL: Denies fever or chills. HEENT: Denies blurred vision, vision changes, or eye pain. Denies hemoptysis CARDIOVASCULAR: Denies chest pain. Denies orthopnea. Denies PND. Denies p alpitations RESPIRATORY: Denies shortness of breath. GASTROINTESTINAL: Denies abdominal pain. Denies nausea or vomiting. HEMATOLOGIC: Denies bleeding disorders. GENITOURINARY: Denies any blood in urine. SKIN: Denies pruitis. Denies rash. PHYSICAL EXAM: VITAL SIGNS: Reviewed. GENERAL: Well-developed in no acute distress. HEENT: Head is normocephalic. Pupils are equal, round. Sclerae anicteric. Mucous membranes of the mouth are moist. Neck supple. No JVD or thyromegaly LUNGS: Respirations even and unlabored. Lungs diminished at the bases HEART: Regular rate and rhythm. S1 and S2 heard. Systolic murmur noted ABDOMEN: Soft. Nondistended. Nontender. EXTREMITIES: Normal range of motion. No clubbing or cyanosis. Peripheral pulses intact. 1-2+ bilateral lower extremity edema NEUROLOGIC: Awake and alert. Oriented x 3. ASSESSMENT: Shortness of breath Acute on chronic heart failure with reduced EF, 5% Acute on chronic kidney disease Coronary artery disease with known EMERGENCY VETERINARIAN of RCA and significant disease involving circumflex and LAD Ischemic cardiomyopathy, on LifeVest earlier this year Hypertension Hyperlipidemia Diabetes Obesity: BMI 41.1 PLAN: Obtain 2D echo to assess cardiac structure and function Hold Farxiga and Aldactone secondary to worsening kidney function Continue diuresis with Lasix 40 mg every 8 hours Daily weights, accurate intake and output, and monitoring of kidney function Consult Dr. Zamarripa, applications support engineer, for possible ICD evaluation Further recommendations pending patient course Nurse practitioner note has been reviewed by physician. Signing provider agrees with the documented findings, assessment, and plan of care documented by [employer] GLASS INSPECTOR as a scribe. 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 Past Anesthesia/Blood Transfusion Reactions: No Reported Reaction Past Psychological History: Anxiety, Depression Smoking Status: Vaper Past Alcohol Use History: None Reported, Occasional Past Drug Use History: Marijuana Additional Drug Use History / Comment(s): patient doesn't smoke cigarettes but occassionally smokes marijuana Medications and Allergies Home Medications Medication Instructions Recorded Confirmed Type Dapagliflozin Propanediol [Farxiga] 10 mg PO DAILY #30 tab 01/30/24 05/17/24 Rx Spironolactone [Aldactone] 25 mg PO DAILY #30 tab 01/30/24 05/17/24 Rx carvediloL [Coreg] 3.125 mg PO BID-W/MEALS #60 tab 01/30/24 05/17/24 Rx Albuterol Inhaler [Ventolin Hfa 2 puff INHALATION RT-Q6H PRN 05/17/24 05/17/24 History Inhaler] Aspirin EC [Ecotrin] 325 mg PO DAILY 05/17/24 05/17/24 History DULoxetine HCL [Cymbalta] 60 mg PO DAILY 05/17/24 05/17/24 History Furosemide [Lasix] 80 mg PO BID 05/17/24 05/17/24 History Isosorbide Mononitrate ER [Imdur] 15 mg PO DAILY 05/17/24 05/17/24 History Midodrine [ProAmatine] 5 mg PO AC-TID 05/17/24 05/17/24 History Mupirocin 2% Oint [Bactroban 2% 1 applic TOPICAL TID 05/17/24 05/17/24 History Oint] Simvastatin [Zocor] 20 mg PO HS 05/17/24 05/17/24 History Tamsulosin [Flomax] 0.4 mg PO DAILY 05/17/24 05/17/24 History Allergies Allergy/AdvReac Type Severity Reaction Status Date / Time Penicillins Allergy Rash/Hives Verified 05/17/24 14:56 Sulfa (Sulfonamide Allergy Rash/Hives Verified 05/17/24 14:56 Antibiotics) indomethacin AdvReac cannot Verified 05/17/24 14:56 take with another prescribed med Physical Exam Vitals: Vital Signs Temp Pulse Pulse Resp BP BP Pulse Ox 05/18/24 10:23 18 05/18/24 07:58 100 05/18/24 07:54 97.3 F L 78 16 115/74 96 05/18/24 04:00 93 18 120/86 98 05/18/24 00:00 91 18 121/85 96 05/17/24 21:15 97.8 F 81 18 113/73 98 05/17/24 20:00 97.8 F 81 18 113/73 98 05/17/24 18:01 84 20 104/81 97 05/17/24 15:14 89 22 99/83 100 05/17/24 13:54 98.6 F 81 22 98/84 100 Intake and Output 05/17/24 05/18/24 05/18/24 22:59 06:59 14:59 Intake Total 360 Output Total 1 Balance -1 360 Intake: Oral 360 Output: Stool 1 Other: # Voids 0 # Bowel Movements 1 Weight 113.398 kg 123.5 kg Results 05/18/24 07:15 05/18/24 07:15 Cardiac Enzymes 05/17/24 05/17/24 Range/Units 14:32 14:32 AST 43 (17-59) U/L Troponin I <0.012 (0.000-0.034) ng/mL Coagulation 05/17/24 Range/Units 14:32 PT 11.8 (10.0-12.5) sec APTT 22.2 (22.0-30.0) sec CBC 05/17/24 05/18/24 Range/Units 14:32 07:15 WBC 3.2 L 3.9 (3.8-10.6) k/uL RBC 2.91 L 3.10 L (4.30-5.90) m/uL Hgb 8.7 L 9.1 L (13.0-17.5) gm/dL Hct 27.7 L 29.5 L (39.0-53.0) % Plt Count 162 212 (150-450) k/uL Comprehensive Metabolic Panel 05/17/24 05/18/24 Range/Units 14:32 07:15 Sodium 135 L 136 L (137-145) mmol/L Potassium 3.7 4.5 (3.5-5.1) mmol/L Chloride 101 97 L (98-107) mmol/L Carbon Dioxide 29 31 H (22-30) mmol/L BUN 55 H 54 H (9-20) mg/dL Creatinine 2.53 H 2.73 H (0.66-1.25) mg/dL Glucose 93 117 H (74-99) mg/dL Calcium 8.7 9.0 (8.4-10.2) mg/dL AST 43 (17-59) U/L ALT 17 (4-49) U/L Alkaline Phosphatase 188 H (38-126) U/L Total Protein 7.0 (6.3-8.2) g/dL Albumin 3.5 (3.5-5.0) g/dL Current Medications Generic Name Dose Route Start Last Admin Trade Name Freq PRN Reason Stop Dose Admin Albuterol Sulfate 2.5 mg 05/17/24 17:24 Albuterol Nebulized 2.5 Mg/3 Ml INHALATION RT-Q6H PRN Shortness Of Breath Aspirin 81 mg 05/18/24 09:00 05/18/24 09:24 Aspirin 81 Mg PO 81 mg DAILY ROSE Administration Atorvastatin Calcium 10 mg 05/17/24 21:00 05/17/24 21:12 Atorvastatin 10 Mg Tab PO 10 mg HS ROSE Administration Carvedilol 3.125 mg 05/17/24 17:30 05/18/24 06:20 Carvedilol 3.125 Mg Tab PO 3.125 mg BID-W/MEALS ROSE Administration Duloxetine HCl 60 mg 05/18/24 09:00 05/18/24 09:24 Duloxetine Hcl 60 Mg Capsule.Dr PO 60 mg DAILY ROSE Administration Furosemide 40 mg 05/17/24 18:00 05/18/24 09:24 Furosemide 10 Mg/Ml 4 Ml Vial IV 40 mg Q8H ROSE Administration Isosorbide Mononitrate 15 mg 05/18/24 09:00 05/18/24 10:04 Isosorbide Mononitrate Er 15 Mg Tab PO 15 mg DAILY ROSE Administration Midodrine 5 mg 05/17/24 17:30 05/18/24 06:20 Midodrine 5 Mg Tab PO 5 mg AC-TID ROSE Administration Tamsulosin HCl 0.4 mg 05/18/24 09:00 05/18/24 09:24 Tamsulosin 0.4 Mg Cap.Er.24h PO 0.4 mg DAILY ROSE Administration Intake and Output 05/17/24 05/18/24 05/18/24 22:59 06:59 14:59 Intake Total 360 Output Total 1 Balance -1 360 Intake: Oral 360 Output: Stool 1 Other: # Voids 0 # Bowel Movements 1 Weight 113.398 kg 123.5 kg 05/18/24 07:15 05/18/24 07:15
[2024-05-18 11:27] LABS: Glucose,Whole Blood 112 mg/dL (70-110)
--- NOTE | 2024-05-18 12:59 | P.NPCON ---
History of Present Illness - Reason for Consult acute renal failure - History of Present Illness patient is a 58-year-old malewith history of type 2 diabetes, hypertension, CHF with ejection fraction 15-20%. Patient has underlying chronic kidney disease stage III with creatinine 1.4 on 01/29/2024. Multiple episodes of acute kidney injury noted during hospitalizations. Patient is admitted to the hospital with shortness of breath and increased leg swelling. Chest x-ray shows evidence of CHF. Serum creatinine was 2.5 yesterday and increased to 2.7 today. Urine output not charted. Blood pressure was low on admission with systolic in the 90s. Maintained on IV Lasix Past Medical History Past Medical History: Heart Failure, Diabetes Mellitus, Eye Disorder, Hype rtension, Prostate Disorder, Renal Disease Additional Past Medical History / Comment(s): cataracts, prostate issues 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 Past Anesthesia/Blood Transfusion Reactions: No Reported Reaction Past Psychological History: Anxiety, Depression Smoking Status: Vaper Past Alcohol Use History: None Reported, Occasional Past Drug Use History: Marijuana Additional Drug Use History / Comment(s): patient doesn't smoke cigarettes but occassionally smokes marijuana Medications and Allergies Home Medications Medication Instructions Recorded Confirmed Type Dapagliflozin Propanediol [Farxiga] 10 mg PO DAILY #30 tab 01/30/24 05/17/24 Rx Spironolactone [Aldactone] 25 mg PO DAILY #30 tab 01/30/24 05/17/24 Rx carvediloL [Coreg] 3.125 mg PO BID-W/MEALS #60 tab 01/30/24 05/17/24 Rx Albuterol Inhaler [Ventolin Hfa 2 puff INHALATION RT-Q6H PRN 05/17/24 05/17/24 History Inhaler] Aspirin EC [Ecotrin] 325 mg PO DAILY 05/17/24 05/17/24 History DULoxetine HCL [Cymbalta] 60 mg PO DAILY 05/17/24 05/17/24 History Furosemide [Lasix] 80 mg PO BID 05/17/24 05/17/24 History Isosorbide Mononitrate ER [Imdur] 15 mg PO DAILY 05/17/24 05/17/24 History Midodrine [ProAmatine] 5 mg PO AC-TID 05/17/24 05/17/24 History Mupirocin 2% Oint [Bactroban 2% 1 applic TOPICAL TID 05/17/24 05/17/24 History Oint] Simvastatin [Zocor] 20 mg PO HS 05/17/24 05/17/24 History Tamsulosin [Flomax] 0.4 mg PO DAILY 05/17/24 05/17/24 History Allergies Allergy/AdvReac Type Severity Reaction Status Date / Time Penicillins Allergy Rash/Hives Verified 05/17/24 14:56 Sulfa (Sulfonamide Allergy Rash/Hives Verified 05/17/24 14:56 Antibiotics) indomethacin AdvReac cannot Verified 05/17/24 14:56 take with another prescribed med Physical Exam Vitals: Vital Signs Temp Pulse Pulse Resp BP BP Pulse Ox 05/18/24 10:50 98.2 F 81 18 111/75 100 05/18/24 10:23 18 05/18/24 07:58 100 05/18/24 07:54 97.3 F L 78 16 115/74 96 05/18/24 04:00 93 18 120/86 98 05/18/24 00:00 91 18 121/85 96 05/17/24 21:15 97.8 F 81 18 113/73 98 05/17/24 20:00 97.8 F 81 18 113/73 98 05/17/24 18:01 84 20 104/81 97 05/17/24 15:14 89 22 99/83 100 05/17/24 13:54 98.6 F 81 22 98/84 100 Intake and Output 05/17/24 05/18/24 05/18/24 22:59 06:59 14:59 Intake Total 360 Output Total 1 Balance -1 360 Intake: Oral 360 Output: Stool 1 Other: # Voids 0 # Bowel Movements 1 Weight 113.398 kg 123.5 kg 123.5 kg patient is awake, comfortable, no acute distress. Examination of the heart S1 and S2 Examination of the lungs bilateral breath sounds are heard examination of lower extremities shows edema 2+ bilaterally BALANCE TRUER exam grossly intact Results - Lab Results Most recent lab results Calcium 9.0 mg/dL (8.4-10.2) 05/18/24 07:15 Magnesium 2.2 mg/dL (1.6-2.3) 05/17/24 14:32 05/18/24 07:15 05/18/24 07:15 Assessment and Plan Assessment: 1. Acute kidney injury, cardiorenal. Rule out obstructive uropathy. Patient has had previous history of urine retention.UA shows 1+ protein and moderate blood, hyaline casts 37 2. Chronic kidney disease stage III with previous creatinine 1.4 secondary to nephrosclerosis and cardiorenal syndrome 3. Acute on chronic CHF with decreased ejection fraction of 15-20% 4. Volume overload 5. History of BPH maintained on Flomax Plan: continue with IV Lasix Accurate I's and O's Check bladder scan rule out urine retention Continue with Flomax Repeat labs in a.m. Maintain salt and fluid restriction. Thank you for the consultation. We will continue to follow the patient with you during his hospitalization.
--- NOTE | 2024-05-18 13:41 | US ---
EXAMINATION TYPE: US abdomen limited DATE OF EXAM: 05/18/2024 COMPARISON: 08/15/2023. CLINICAL INDICATION: Male, 58 years old with history of eval for possible paracentesis; Hx Ascites Technique: Grayscale imaging the abdomen for ascites. FINDINGS: Fluid present in all four quadrants IMPRESSION: Moderate ascites X-Ray [place], , 05/18/2024 1:38 PM
--- NOTE | 2024-05-18 14:49 | CA ---
Transthoracic Echo Report Name: Isiah Rodríguez Age: 58 Gender: M : 1965 Exam Date: 05/18/2024 09:42 Exam Location: [facility] Ht (in): 68 Wt (lb): 272 Ordering Physician: Catia Trotter Attending/Referring Phys: [id number], Sergo Furnace Clerk Cher Weber, BELKIS Procedure CPT: Indications: LV function, CHF, SOB Cardiac Hx: Technical Quality: Good Contrast 1: Total Dose (mL): Contrast 2: Total Dose (mL): MEASUREMENTS (Male / Female) Normal Values 2D ECHO LV Diastolic Diameter PLAX 5.3 cm 4.2 - 5.9 / 3.9 - 5.3 cm LV Systolic Diameter PLAX 5.5 cm IVS Diastolic Thickness 1.2 cm 0.6 - 1.0 / 0.6 - 0.9 cm LVPW Diastolic Thickness 1.1 cm 0.6 - 1.0 / 0.6 - 0.9 cm LV Relative Wall Thickness 0.4 RV Internal Dim ED PLAX 4.4 cm LA Systolic Diameter LX 5.2 cm 3.0 - 4.0 / 2.7 - 3.8 cm LV Diastolic Volume MOD 4C 175.7 cm??? LV Systolic Volume MOD 4C 124.3 cm??? LV Ejection Fraction MOD 4C 29.3 % LV Cardiac Index MOD 4C 1876.8 cm???/min???m??? LV Diastolic Length 4C 9.6 cm LV Systolic Length 4C 8.8 cm LV Diastolic Volume MOD 2C 148.1 cm??? LV Systolic Volume MOD 2C 109.2 cm??? LV Ejection Fraction MOD 2C 26.2 % LV Cardiac Index MOD 2C 1419.0 cm???/min???m??? LV Diastolic Length 2C 9.0 cm LV Systolic Length 2C 8.1 cm LA Volume 90.8 cm??? 18 - 58 / 22 - 52 cm??? LA Volume Index 36.4 cm???/m??? 16 - 28 cm???/m??? M-MODE Aortic Root Diameter MM 3.8 cm AV Cusp Separation MM 2.5 cm DOPPLER AV Peak Velocity 83.2 cm/s AV Peak Gradient 2.8 mmHg MV Area PHT 4.2 cm??? MR Peak Velocity 366.5 cm/s MR Peak Gradient 53.7 mmHg MV Deceleration Time 148.7 ms MV E' Velocity 5.6 cm/s TR Peak Velocity 215.6 cm/s TR Peak Gradient 18.6 mmHg Right Ventricular Systolic Press 35.0 mmHg FINDINGS Left Ventricle Left ventricular ejection fraction is estimated at 20-25 %. Left ventricular cavity size normal. Mildly increased septal wall thickness. Severely reduced global left ventricular systolic function. Global hypokinesis Right Ventricle Severe right ventricular dilatation. Moderate pulmonary hypertension. Right Atrium Severe right atrial dilatation. No right atrial thrombus or mass seen. Left Atrium Severely increased left atrial diameter. Moderately increased left atrial volume. Mildly increased left atrial area. Mitral Valve Mitral valve thickened. Moderate mitral regurgitation. No evidence for mitral valve prolapse. No mitral stenosis. Aortic Valve Trileaflet aortic valve. No aortic valve stenosis or regurgitation. Tricuspid Valve Structurally normal tricuspid valve. [id number] tricuspid regurgitation. Pulmonic Valve Structurally normal pulmonic valve. No pulmonic regurgitation. Pericardium Right pleural effusion, ascites. Aorta Mild aortic dilatation at the level of the sinuses of valsalva 38 mm CONCLUSIONS Left ventricular ejection fraction 20-25% Mildly increased left ventricular wall thickness Severe right ventricular dilation with moderate right ventricular hypokinesis RVSP 35 Moderate to severe biatrial enlargement Moderate mitral regurgitation Mild to moderate tricuspid regurgitation Previewed by: Dr. Gerson Gates DO (Electronically Signed) Final Date: 18 May 2024 14:48
[2024-05-18 16:37] LABS: Glucose,Whole Blood 119 mg/dL (70-110)
[2024-05-18 20:01] LABS: Glucose,Whole Blood 149 mg/dL (70-110)
--- NOTE | 2024-05-18 21:56 | PN ---
PROGRESS NOTE DATE OF SERVICE: 05/18/2024 SUBJECTIVE: This is a 58-year-old gentleman admitted with shortness of breath, possible CHF acute exacerbation, also had some ascites. No chest pain. No palpitation. The swelling is being persisting. PAST MEDICAL HISTORY: Reviewed. REVIEW OF SYSTEMS: Fourteen-point review is negative except as mentioned earlier. CURRENT MEDICATIONS: Reviewed include Lasix. PHYSICAL EXAMINATION: VITAL SIGNS: Pulse is 81, blood pressure 101/74, respirations 18. CHEST: A few scattered rhonchi and crackles. ABDOMEN: Soft, ascites present. LEGS: Bilateral leg edema. NERVOUS SYSTEM: Nonfocal. LABORATORY DATA: Hemoglobin 9.1, other labs are noted. ASSESSMENT: 1. Shortness of breath, possible congestive heart failure acute exacerbation with acute on chronic systolic dysfunction. 2. Possible cardiomyopathy. 3. Possible cirrhosis of the liver with tense ascites. 4. Chronic kidney disease, stage III. 5. Diabetes mellitus, type 2. 6. Multiple complex medical issues. RECOMMENDATIONS AND DISCUSSION: Recommend to continue current management and continue symptomatic treatment. Otherwise, continue with diuresis. Repeat labs. Closely follow with multiple consultants. DVT prophylaxis. Guarded prognosis. Further recommendations to follow. See orders for further details. Consultants input appreciated. MMODL / IJN: [id number] /
[2024-05-19 05:57] LABS: Glucose,Whole Blood 116 mg/dL (70-110)
[2024-05-19 06:49] LABS: African American GFR (CKD) 31 (>60 ml/min/1.73 sqM); Anion Gap 3 mmol/L; Blood Urea Nitrogen 57 mg/dL (9-20); Calcium 8.8 mg/dL (8.4-10.2); Carbon Dioxide 30 mmol/L (22-30); Chloride 101 mmol/L (98-107); Glucose 110 mg/dL (74-99); Non-African American GFR(CKD) 27 (>60 ml/min/1.73 sqM); Potassium 4.4 mmol/L (3.5-5.1); Sodium 134 mmol/L (137-145)
[2024-05-19 06:57] LABS: Basophils % (A) 1 %; Eosinophils # (A) 0.1 k/uL (0-0.7); Eosinophils % (A) 2 %; HCT 26.9 % (39.0-53.0); HGB 8.8 gm/dL (13.0-17.5); Lymphocytes # (A) 0.5 k/uL (1.0-4.8); Lymphocytes % (A) 11 %; MCH 30.5 pg (25.0-35.0); MCHC 32.8 g/dL (31.0-37.0); MCV 93.1 fL (80.0-100.0); Monocytes # (A) 0.3 k/uL (0-1.0); Monocytes % (A) 6 %; Neutrophils # (A) 3.4 k/uL (1.3-7.7); Neutrophils % (A) 77 %; Platelet Count 197 k/uL (150-450); RBC 2.89 m/uL (4.30-5.90); RDW 14.9 % (11.5-15.5); WBC 4.4 k/uL (3.8-10.6)
--- NOTE | 2024-05-19 10:39 | P.PN ---
Subjective HISTORY OF PRESENT ILLNESS: This is a 58-year-old male with a past medical history significant for congestive heart failure, coronary artery disease, chronic kidney disease, hypertension, hyperlipidemia, diabetes, cardiomyopathy, and obesity. Patient follows in the office with Dr. Gates. We have been asked to see the patient in consultation for congestive heart failure. Patient examined at the bedside. Patient presented to the hospital with a chief complaint of shortness of breath. He also reports worsening lower extremity edema and weeping of his upper and lower extremities. Patient was found to be in acute CHF and was started on IV Lasix. He continues to report shortness of breath this morning although improving. He denies any chest pain or pressure. The patient was last seen in the office in October 2023. At that time the patient was wearing a LifeVest. He states that he has since returned the LifeVest to [facility]. He reports that there was some talk about ICD implantation but the patient has been having some issues getting to the office and has not been able to make his follow-up appointments. DIAGNOSTICS: - EKG reveals sinus mechanism with no signs of acute ischemia - Chest xray findings consistent with mild to moderate CHF - Laboratory data: WBC 3.9. Hemoglobin 9.1. Platelet count 212. Sodium 136. Potassium 4.5. BUN 54. Creatinine 2.73. Troponin negative x 1. proBNP 23,700 - Current home cardiac medications include Farxiga 10 mg daily, Aldactone 25 mg daily, carvedilol 3.125 mg twice a day, Lasix 80 mg twice a day, simvastatin 20 mg at night, Imdur 15 mg daily, midodrine 5 mg 3 times a day - Most recent echocardiogram obtained in 09/2023 revealing ejection fraction 5% with moderate to severe MR -Patient underwent Lexiscan stress test in January 2024 revealing large area of previous inferior wall infarct. Possible minimal dale-infarct ischemia at the apex. Transient ischemic dilatation ratio was elevated. - Cardiac catheterization history: September 2023 revealing three-vessel coronary artery disease with chronic occlusion of the right coronary artery and significant disease involving the circumflex coronary artery and diffuse disease involving the LAD. Medical management was recommended. 05/19/2024 Patient examined this morning at the bedside. Patient currently denies any chest pain or pressure. He reports improvement in his shortness of breath. He remains on Lasix 40 mg every 8 hours. Creatinine today 2.57. Cardiogram completed revealing ejection fraction 20 to 25%, global hypokinesis, moderate pulmonary hypertension, mild to moderate tricuspid regurgitation. Patient currently has a corporate safety coordinator at the bedside due to suicidal ideation. PHYSICAL EXAM: VITAL SIGNS: Reviewed. GENERAL: Well-developed in no acute distress. HEENT: Head is normocephalic. Pupils are equal, round. Sclerae anicteric. Mucous membranes of the mouth are moist. Neck supple. No JVD or thyromegaly LUNGS: Respirations even and unlabored. Lungs diminished at the bases HEART: Regular rate and rhythm. S1 and S2 heard. Systolic murmur noted ABDOMEN: Soft. Nondistended. Nontender. EXTREMITIES: Normal range of motion. No clubbing or cyanosis. Peripheral pulses intact. 1-2+ bilateral lower extremity edema NEUROLOGIC: Awake and alert. Oriented x 3. 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 Zamarripa, dining service inspector, for possible ICD evaluation. Case discussed with Dr. Zamarripa this morning. He will evaluate patient tomorrow. Further recommendations pending patient course Nurse practitioner note has been reviewed by physician. Signing provider agrees with the documented findings, assessment, and plan of care documented by SECURITY LEAD as a scribe. Objective - Vital Signs Vital signs: Vital Signs Temp 97.9 F 05/19/24 07:30 Pulse 86 05/19/24 10:06 Resp 18 05/19/24 10:06 BP 109/71 05/19/24 07:30 Pulse Ox 96 05/19/24 07:30 FiO2 Intake & Output 05/18/24 05/19/24 05/19/24 18:59 06:59 18:59 Intake Total 480 697 480 Output Total 500 600 600 Balance -20 97 -120 Weight 123.5 kg 122.6 kg Intake: Oral 480 697 480 Output: Urine 500 600 600 Other: Voiding Method Indwelling Catheter Indwelling Catheter # Bowel Movements 1 - Labs CBC & Chem 7: 05/19/24 06:09 05/19/24 06:09 Labs: Abnormal Lab Results - Last 24 Hours (Table) 05/18/24 05/18/24 05/18/24 Range/Units 11:26 16:36 20:00 RBC (4.30-5.90) m/uL Hgb (13.0-17.5) gm/dL Hct (39.0-53.0) % Lymphocytes # (1.0-4.8) k/uL Sodium (137-145) mmol/L BUN (9-20) mg/dL Creatinine (0.66-1.25) mg/dL Glucose (74-99) mg/dL POC Glucose (mg/dL) 112 H 119 H 149 H (70-110) mg/dL 05/19/24 05/19/24 05/19/24 Range/Units 05:55 06:09 06:09 RBC 2.89 L (4.30-5.90) m/uL Hgb 8.8 L (13.0-17.5) gm/dL Hct 26.9 L (39.0-53.0) % Lymphocytes # 0.5 L (1.0-4.8) k/uL Sodium 134 L (137-145) mmol/L BUN 57 H (9-20) mg/dL Creatinine 2.57 H (0.66-1.25) mg/dL Glucose 110 H (74-99) mg/dL POC Glucose (mg/dL) 116 H (70-110) mg/dL
[2024-05-19 11:35] LABS: Glucose,Whole Blood 231 mg/dL (70-110)
--- NOTE | 2024-05-19 12:53 | P.PN ---
Subjective patient is seen for follow-up for acute kidney injury, cardiorenal. Patient is currently being diuresed. Shortness of breath has improved. No significant complaints today. Serum creatinine down to 2.5 mg/dL. 24-hour urine output at 1100 mL Objective - Vital Signs Vital signs: Vital Signs Temp 98 F 05/19/24 10:55 Pulse 78 05/19/24 10:55 Resp 18 05/19/24 10:55 BP 103/71 05/19/24 10:55 Pulse Ox 99 05/19/24 10:55 FiO2 Intake & Output 05/18/24 05/19/24 05/19/24 18:59 06:59 18:59 Intake Total 480 697 480 Output Total 500 600 600 Balance -20 97 -120 Weight 123.5 kg 122.6 kg Intake: Oral 480 697 480 Output: Urine 500 600 600 Other: Voiding Method Indwelling Catheter Indwelling Catheter # Bowel Movements 1 - Exam patient is awake, comfortable, no acute distress. Examination of the heart S1 and S2 Examination of the lungs bilateral breath sounds are heard examination of lower extremities shows edema 2+ bilaterally WEB MARKETING ASSISTANT exam grossly intact - Labs CBC & Chem 7: 05/19/24 06:09 05/19/24 06:09 Labs: Abnormal Lab Results - Last 24 Hours (Table) 05/18/24 05/18/24 05/19/24 Range/Units 16:36 20:00 05:55 RBC (4.30-5.90) m/uL Hgb (13.0-17.5) gm/dL Hct (39.0-53.0) % Lymphocytes # (1.0-4.8) k/uL Sodium (137-145) mmol/L BUN (9-20) mg/dL Creatinine (0.66-1.25) mg/dL Glucose (74-99) mg/dL POC Glucose (mg/dL) 119 H 149 H 116 H (70-110) mg/dL 05/19/24 05/19/24 05/19/24 Range/Units 06:09 06:09 11:34 RBC 2.89 L (4.30-5.90) m/uL Hgb 8.8 L (13.0-17.5) gm/dL Hct 26.9 L (39.0-53.0) % Lymphocytes # 0.5 L (1.0-4.8) k/uL Sodium 134 L (137-145) mmol/L BUN 57 H (9-20) mg/dL Creatinine 2.57 H (0.66-1.25) mg/dL Glucose 110 H (74-99) mg/dL POC Glucose (mg/dL) 231 H (70-110) mg/dL Assessment and Plan Assessment: 1. Acute kidney injury, cardiorenal. Rule out obstructive uropathy. Patient has had previous history of urine retention.UA shows 1+ protein and moderate blood, hyaline casts 37 2. Chronic kidney disease stage III with previous creatinine 1.4 secondary to nephrosclerosis and cardiorenal syndrome 3. Acute on chronic CHF with decreased ejection fraction of 15-20% 4. Volume overload 5. History of BPH maintained on Flomax 6. Anemia rule out iron deficiency. Most likely anemia of chronic disease also present. Plan: continue with IV Lasix check iron profile Continue with Flomax Repeat labs in a.m. Maintain salt and fluid restriction.
--- NOTE | 2024-05-19 14:11 | P.CN ---
Psychiatric Consult - . Consult date: 05/19/24 Consult:: 05/19/24 13:58 IDENTIFYING DATA: This patient is a 58-year-old male currently dependent on family for support and unemployed. REASON FOR REFERRAL: Psychiatry was consulted for suicidal statements HISTORY OF PRESENT ILLNESS: The patient presented to the hospital under acute renal dysfunction. While on the unit he had told the nurse that he was having suicidal thoughts with a plan. When approaching the patient at times in the interview he was ambiguous about his responses. When asking about suicidal thoughts he said I had them chronically however, at one point had stated that he could hang himself with a shower curtain. He notes that one of his plans is to either use the gas oven or a car because it is painless. Denied any previous suicide attempts. He notes that if 10 was actually going through with a suicide attempt currently at this time he is 2/10. He notes a lifetime history of depression currently he rates it 2/10 but notes that his anxiety is 8/10. Patient went on to state "I can use some Xanax at night". Patient had been treated in [facility] but is ambiguous about past trials of medication. He notes that he sleeps well but due to his lack of mobility describes his energy is fair. Notes that his appetite is good and his concentration is poor. He has feelings of worthlessness. He notes bouts of crying he denies any guilt or shame. He denies any homicidal thoughts or access to guns. Review of psychiatric systems were negative for bipolar disorder, OCD, PTSD or psychosis. Patient does have a history of emotional dysregulation and occasional stormy relationships. Collateral information: Patient refused to give collateral information PAST PSYCHIATRIC HISTORY: Patient has a a history of depression. Patient is currently taking Cymbalta and has a past history of being on Wellbutrin and other mental health medications he cannot recall. Patient denies any previous psychiatric hospitalizations. [facility] . Patient denies any previous suicide attempts or homicide attempts. Patient denies any past history of mental, physical or sexual abuse. PAST MEDICAL HISTORY: Chronic heart failure, acute kidney damage, ascites, adenoids removed at the age of 14. ALLERGIES: as per EMR. CHEMICAL DEPENDENCY HISTORY: as per HPI. FAMILY PSYCHIATRIC/SUBSTANCE USE HISTORY: Throughout his family SOCIAL HISTORY: Patient was born and raised in [place]. Patient notes a history of some college. He notes good grades. He has never been or has children. He currently lives in his father's house and is filing for disability. He notes that he is spiritual and islam. He describes his overall childhood as "happy". MENTAL STATUS EXAM: General Appearance: Patient appears to be stated age is alert, pleasant, and cooperative. Patient appears to have fair hygiene and grooming wearing hospital gown with fair eye contact. Behavior: Patient is calmly lying in bed without any agitated behavior. Patient was guarded during his interview Speech: Patient's speech is fluent and nonpressured. Mood/Affect: Patient reports their mood is "depressed", affect is congruent Suicidality/Homicidality: Patient denies having any suicidal or homicidal ideation intent or plan. Perceptions: Patient denies any visual hallucinations and denies any auditory hallucinations Though content/process: There is no evidence of any delusional thought content and thought process is linear and goal-directed. Memory and concentration: AOX3, grossly intact for the purposes of this session. Can spell "WORLD" backwards Judgment and insight: Poor Diagnosis: Adjustment disorder Major depressive disorder recurrent moderate IMPRESSIONS: Patient is presenting for a medical problem but while admitted had expressed suicidal thoughts with a plan. Patient had been having some disagreement with his family mainly supports him and there is probably fear that this will discontinue. Patient has a history of lifelong depression and meets criteria for major depressive disorder. There is also a sense of mood dysregulation and stormy relationships which may reflect a possible personality disorder. Currently he is being ambiguous about his suicidal thoughts but notes that he would not kill himself in the hospital and then mentioned hanging himself with the shower curtain. It is uncertain at this time whether he would actually harm himself and further evaluation will be needed to determine this. PLAN: -At this time patient DOES meet criteria for inpatient psychiatric admission. -Would recommend the following medication changes/additions: Continue home psychiatric medications -Continue 1:1 sitter for safety -When medically stable, patient is eligible for transfer to a psych bed when available. -Communicated plan to patient's nurse -Will continue to follow along -Please contact with any questions.
[2024-05-19] MEDS: DARBEPOETIN ALFA 60 MCG/0.3 ML SYRINGE SQ SCH (15:06)
[2024-05-19 16:42] LABS: Glucose,Whole Blood 166 mg/dL (70-110)
[2024-05-19 18:26] LABS: % Iron Saturation 22.34 (15.00-50.00)
--- NOTE | 2024-05-20 01:11 | PN ---
PROGRESS NOTE DATE OF SERVICE: 05/19/2024 SUBJECTIVE: This is a 58-year-old gentleman admitted with CHF acute exacerbation and cardiomyopathy, also had possible cirrhosis of the liver. Abdominal ultrasound showed moderate ascites. Interventional Neurology has been consulted. OBJECTIVE: VITAL SIGNS: Pulse is 78, blood pressure 103/70, respirations 18. CHEST: A few scattered rhonchi. ABDOMEN: Tense ascites. LEGS: Bilateral leg edema. LABORATORY DATA: Noted. ASSESSMENT: 1. Congestive heart failure acute exacerbation with acute on chronic systolic dysfunction. 2. Possible cardiomyopathy. 3. Ascites secondary to cirrhosis of liver. 4. Chronic kidney disease, stage 3. 5. Diabetes mellitus, type 2. 6. Multiple complex medical issues. RECOMMENDATIONS: Recommend to continue current management and continue symptomatic treatment. Otherwise, monitor creatinine closely. We will continue with diuretics. I would also recommend Interventional Radiology for ascitic aspiration also. Follow with multiple consultants. Further recommendations to follow. MMODL / IJN: [id number] /
[2024-05-20] MEDS: ALPRAZolam 0.25 MG TAB PO STA (02:24)
--- NOTE | 2024-05-20 12:07 | P.PN ---
Subjective HISTORY OF PRESENT ILLNESS: This is a 58-year-old male with a past medical history significant for congestive heart failure, coronary artery disease, chronic kidney disease, hypertension, hyperlipidemia, diabetes, cardiomyopathy, and obesity. Patient follows in the office with Dr. Gates. We have been asked to see the patient in consultation for congestive heart failure. Patient examined at the bedside. Patient presented to the hospital with a chief complaint of shortness of breath. He also reports worsening lower extremity edema and weeping of his upper and lower extremities. Patient was found to be in acute CHF and was started on IV Lasix. He continues to report shortness of breath this morning although improving. He denies any chest pain or pressure. The patient was last seen in the office in October 2023. At that time the patient was wearing a LifeVest. He states that he has since returned the LifeVest to [facility]. He reports that there was some talk about ICD implantation but the patient has been having some issues getting to the office and has not been able to make his follow-up appointments. DIAGNOSTICS: - EKG reveals sinus mechanism with no signs of acute ischemia - Chest xray findings consistent with mild to moderate CHF - Laboratory data: WBC 3.9. Hemoglobin 9.1. Platelet count 212. Sodium 136. Potassium 4.5. BUN 54. Creatinine 2.73. Troponin negative x 1. proBNP 23,700 - Current home cardiac medications include Farxiga 10 mg daily, Aldactone 25 mg daily, carvedilol 3.125 mg twice a day, Lasix 80 mg twice a day, simvastatin 20 mg at night, Imdur 15 mg daily, midodrine 5 mg 3 times a day - Most recent echocardiogram obtained in 09/2023 revealing ejection fraction 5% with moderate to severe MR -Patient underwent Lexiscan stress test in January 2024 revealing large area of previous inferior wall infarct. Possible minimal dale-infarct ischemia at the apex. Transient ischemic dilatation ratio was elevated. - Cardiac catheterization history: September 2023 revealing three-vessel coronary artery disease with chronic occlusion of the right coronary artery and significant disease involving the circumflex coronary artery and diffuse disease involving the LAD. Medical management was recommended. 05/19/2024 Patient examined this morning at the bedside. Patient currently denies any chest pain or pressure. He reports improvement in his shortness of breath. He remains on Lasix 40 mg every 8 hours. Creatinine today 2.57. Cardiogram completed revealing ejection fraction 20 to 25%, global hypokinesis, moderate pulmonary hypertension, mild to moderate tricuspid regurgitation. Patient currently has a fire safety director at the bedside due to suicidal ideation. 05/20/2024 Patient examined this morning at the bedside. Patient currently denies chest pain or pressure. Patient reports improvement in his shortness of breath. He remains on IV Lasix 40 mg every 8 hours. Interventional radiology has been consulted for paracentesis. Kidney function from this morning remains pending. PHYSICAL EXAM: VITAL SIGNS: Reviewed. GENERAL: Well-developed in no acute distress. HEENT: Head is normocephalic. Pupils are equal, round. Sclerae anicteric. Mucous membranes of the mouth are moist. Neck supple. No JVD or thyromegaly LUNGS: Respirations even and unlabored. Lungs diminished at the bases HEART: Regular rate and rhythm. S1 and S2 heard. Systolic murmur noted ABDOMEN: Soft. Nondistended. Nontender. EXTREMITIES: Normal range of motion. No clubbing or cyanosis. Peripheral pulses intact. 1-2+ bilateral lower extremity edema NEUROLOGIC: Awake and alert. Oriented x 3. 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 Patient to be transferred to mental health unit when he is medically stable. Patient states he no longer is interested in ICD. He states he does not want to have this performed and understands the risks of not having ICD including . Will cancel EP consult. Further recommendations pending patient course Nurse practitioner note has been reviewed by physician. Signing provider agrees with the documented findings, assessment, and plan of care documented by WIG STYLIST as a scribe. Objective - Vital Signs Vital signs: Vital Signs Temp 97.7 F 05/20/24 09:07 Pulse 83 05/20/24 11:51 Resp 17 05/20/24 11:51 BP 88/47 05/20/24 11:51 Pulse Ox 97 05/20/24 11:51 FiO2 Intake & Output 05/19/24 05/20/24 05/20/24 18:59 06:59 18:59 Intake Total 1266 240 Output Total 901 802 400 Balance 365 -802 -160 Weight 122 kg Intake: Oral 1266 240 Output: Urine 900 800 400 Stool 1 2 Other: Voiding Method Indwelling Catheter Indwelling Catheter Indwelling Catheter - Labs CBC & Chem 7: 05/19/24 06:09 05/19/24 06:09 Labs: Abnormal Lab Results - Last 24 Hours (Table) 05/19/24 05/19/24 Range/Units 06:09 16:39 POC Glucose (mg/dL) 166 H (70-110) mg/dL Iron 44 L (65-175) UG/DL TIBC 197 L (228-460) UG/DL Transferrin 141.0 L (204.0-354.0) mg/dL
[2024-05-20 12:53] LABS: African American GFR (CKD) 32 (>60 ml/min/1.73 sqM); Anion Gap 4 mmol/L; Blood Urea Nitrogen 56 mg/dL (9-20); Calcium 8.3 mg/dL (8.4-10.2); Carbon Dioxide 31 mmol/L (22-30); Chloride 100 mmol/L (98-107); Glucose 106 mg/dL (74-99); Non-African American GFR(CKD) 28 (>60 ml/min/1.73 sqM); Potassium 3.9 mmol/L (3.5-5.1); Sodium 135 mmol/L (137-145)
[2024-05-20] MEDS: ALBUMIN HUMAN 25% 50 ML in EMPTY BAG 1 BAG IVPB SCH (13:29)
--- NOTE | 2024-05-20 13:33 | P.CN ---
Psychiatric Consult - . Consult date: 05/20/24 Consult:: 05/20/24 13:29 Consult progress note: REASON FOR REFERRAL: Psychiatry was consulted for suicidal statements HISTORY OF PRESENT ILLNESS: I met with the patient in his room. Sitter was asked to step out and the door was closed. Asking the patient how he felt today he expressed that he felt "good". Additionally he expressed that he is no longer suicidal and has no intent on harming himself. We discussed his housing and financial situation in which she stated that he was doing well. He had voiced not wanting to go to the psychiatric unit and prefer to follow-up with outpatient therapy. Patient notes that he is not having any depression but has noted anxiety at night. Feels that he slept good last night and has no problems with energy or appetite. His concentration still waxes and wanes. MENTAL STATUS EXAM: General Appearance: Patient appears to be stated age is alert, pleasant, and cooperative. Patient appears to have [fair] hygiene and grooming wearing hospital gown with [fair] eye contact. Behavior: [Patient is calmly lying in bed without any agitated behavior.] Speech: Patient's speech is fluent and nonpressured. Mood/Affect: Patient reports their mood is "euthymic", affect is congruent Suicidality/Homicidality: Patient denies having any suicidal or homicidal ideation intent or plan. Perceptions: Patient denies any visual hallucinations [and denies any auditory hallucinations] Though content/process: There is no evidence of any delusional thought content and thought process is linear and goal-directed. Memory and concentration: AOX3, grossly intact for the purposes of this session. Judgment and insight: Judgment and insight are fair Diagnosis: Adjustment disorder resolving Major depressive disorder recurrent moderate IMPRESSIONS: Patient is presenting for a medical problem but while admitted had expressed suicidal thoughts with a plan. Patient had been having some disagreement with his family mainly supports him and there is probably fear that this will di scontinue. Patient has a history of lifelong depression and meets criteria for major depressive disorder. There is also a sense of mood dysregulation and stormy relationships which may reflect a possible personality disorder. Currently he is being ambiguous about his suicidal thoughts but notes that he would not kill himself in the hospital and then mentioned hanging himself with the shower curtain. It is uncertain at this time whether he would actually harm himself and further evaluation will be needed to determine this. PLAN: -At this time patient DOES NOT meet criteria for inpatient psychiatric admission. -Would recommend the following medication changes/additions: Continue home psychiatric medications -Discontinue 1:1 sitter for safety -Advised social work to give the patient outpatient resources for therapy -Communicated plan to patient's nurse -Currently signing off on patient -Please contact with any questions.
--- NOTE | 2024-05-20 13:38 | P.PN ---
Subjective Progress Note Date: 05/20/24 This is a pleasant 58-year-old male he is currently receiving IV Lasix 40 mg every 8 hours for an acute CHF exacerbation. Patient had an abdominal ultrasound done showing moderate ascites and is currently down for a paracentesis. His echocardiogram reveals an EF of 20 to 25% consistent with an ischemic cardiomyopathy. He will be followed up by cardiology today for further evaluation for an ICD. Earlier this year patient was using a LifeVest. Blood work from today is currently pending. Was evaluated by psychiatry for suicidal ideation and severe depression. Psychiatry is recommending inpatient psychiatric treatment once patient has been medically cleared and he does require a 24/7 sitter at this time. Review of Systems Constitutional: Denied any fatigue denied any fever. Cardio vascular: denied any chest pain, palpitations Gastrointestinal: denied any nausea, vomiting, diarrhea Pulmonary: Denied any shortness of breath cough Neurologic denied any new focal deficits All inpatient medications were reviewed and appropriate changes in these medications as dictated in the interval history and assessment and plan. PHYSICAL EXAMINATION: GENERAL: The patient is alert and oriented x3, not in any acute distress. Well developed, well nourished. HEENT: Pupils are round and equally reacting to light. EOMI. No scleral icterus. No conjunctival pallor. Normocephalic, atraumatic. No pharyngeal erythema. No thyromegaly. CARDIOVASCULAR: S1 and S2 present. No murmurs, rubs, or gallops. PULMONARY: Chest is clear to auscultation, no wheezing or crackles. ABDOMEN: Soft, nontender, nondistended, normoactive bowel sounds. No palpable organomegaly. MUSCULOSKELETAL: No joint swelling or deformity. EXTREMITIES: No cyanosis, clubbing, or pedal edema. NEUROLOGICAL: Gross neurological examination did not reveal any focal deficits. SKIN: No rashes. Assessment and plan Acute on chronic congestive heart failure systolic dysfunction Ischemic cardiomyopathy received LifeVest in the past patient will need ICD evaluation Ascites secondary to cirrhosis of the liver patient is undergoing paracentesis Acute kidney injury secondary to cardiorenal syndrome improving with diuresis Chronic kidney disease stage III Diabetes mellitus type 2 BPH on Flomax Anemia iron deficiency as well as anemia of chronic disease GI prophylaxis DVT prophylaxis Full code Plan Continue IV Lasix 40 mg every 8 hours and strict intake and output monitoring Continue indwelling Reed catheter Patient is scheduled to undergo ultrasound-guided paracentesis today with interventional radiology Repeat blood work is currently pending at this time Psychiatry has evaluated this patient and recommending inpatient psychiatric treatment once medically cleared secondary to suicidal ideation and worsening depression maintain safety assistant 24 7 at this time. The impression and plan of care has been dictated by Leigh Torres, Nurse Practitioner as directed. Dr. Tl MD I have performed a history and physical examination and medical decision making of this patient, discussed the same with the dictator, and agree with the dictators assessment and plan as written, documented as a scribe. Based on total visit time, I have performed more than 50% of this visit. Objective - Vital Signs Vital signs: Vital Signs Temp 98.0 F 05/19/24 20:00 Pulse 78 05/20/24 02:00 Resp 16 05/20/24 02:00 BP 106/69 05/19/24 23:17 Pulse Ox 98 05/19/24 23:17 FiO2 Intake & Output 05/19/24 05/20/24 05/20/24 18:59 06:59 18:59 Intake Total 1266 240 Output Total 901 802 Balance 365 -802 240 Weight 122 kg Intake: Oral 1266 240 Output: Urine 900 800 Stool 1 2 Other: Voiding Method Indwelling Catheter Indwelling Catheter - Labs CBC & Chem 7: 05/19/24 06:09 05/20/24 12:01 Labs: Abnormal Lab Results - Last 24 Hours (Table) 05/19/24 05/19/24 05/19/24 Range/Units 06:09 11:34 16:39 POC Glucose (mg/dL) 231 H 166 H (70-110) mg/dL Iron 44 L (65-175) UG/DL TIBC 197 L (228-460) UG/DL Transferrin 141.0 L (204.0-354.0) mg/dL Assessment and Plan Time with Patient: Less than 30
--- NOTE | 2024-05-20 14:56 | US ---
Ultrasound-guided paracentesis. DATE OF EXAM: 05/20/2024 CLINICAL HISTORY: Ascites The procedure was discussed with the patient. The risks, complications, benefits, and alternatives we re discussed and any questions were answered. Informed consent was obtained. The patient was placed s upine on the ultrasound table and prepped and draped in the usual sterile fashion. All elements of maximal barrier technique were utilized. Under ultrasound guidance, access into the right lower quadrant was obtained, via the paracentesis catheter system and direct ultrasound guidanc e. Approximately 12.2 liters of straw-colored fluid was removed. The patient was stable throughout the p rocedure and remained stable upon discharge from Department of Radiology. IMPRESSION: Successful paracentesis under ultrasound guidance. [facility], , 05/20/2024 1:28 PM
[2024-05-21 05:09] LABS: Amylase, Fluid Source Ascites; Amylase,Body Fluid 28 U/L; Glucose, BF Source Ascites; Glucose, Body Fluid 113 mg/dL; T. Protein, Body Fluid Source Ascites; Total Protein, Body Fluid >3600 mg/dL
[2024-05-21 07:25] LABS: African American GFR (CKD) 31 (>60 ml/min/1.73 sqM); Anion Gap 4 mmol/L; Blood Urea Nitrogen 56 mg/dL (9-20); Calcium 8.4 mg/dL (8.4-10.2); Carbon Dioxide 33 mmol/L (22-30); Chloride 98 mmol/L (98-107); Glucose 112 mg/dL (74-99); Non-African American GFR(CKD) 27 (>60 ml/min/1.73 sqM); Potassium 4.6 mmol/L (3.5-5.1); Sodium 135 mmol/L (137-145)
[2024-05-21] MEDS: FUROSEMIDE 10 MG/ML 4 ML VIAL IV SCH (08:53)
--- NOTE | 2024-05-21 12:13 | P.PN ---
Subjective HISTORY OF PRESENT ILLNESS: This is a 58-year-old male with a past medical history significant for congestive heart failure, coronary artery disease, chronic kidney disease, hypertension, hyperlipidemia, diabetes, cardiomyopathy, and obesity. Patient follows in the office with Dr. Gates. We have been asked to see the patient in consultation for congestive heart failure. Patient examined at the bedside. Patient presented to the hospital with a chief complaint of shortness of breath. He also reports worsening lower extremity edema and weeping of his upper and lower extremities. Patient was found to be in acute CHF and was started on IV Lasix. He continues to report shortness of breath this morning although improving. He denies any chest pain or pressure. The patient was last seen in the office in October 2023. At that time the patient was wearing a LifeVest. He states that he has since returned the LifeVest to [facility]. He reports that there was some talk about ICD implantation but the patient has been having some issues getting to the office and has not been able to make his follow-up appointments. DIAGNOSTICS: - EKG reveals sinus mechanism with no signs of acute ischemia - Chest xray findings consistent with mild to moderate CHF - Laboratory data: WBC 3.9. Hemoglobin 9.1. Platelet count 212. Sodium 136. Potassium 4.5. BUN 54. Creatinine 2.73. Troponin negative x 1. proBNP 23,700 - Current home cardiac medications include Farxiga 10 mg daily, Aldactone 25 mg daily, carvedilol 3.125 mg twice a day, Lasix 80 mg twice a day, simvastatin 20 mg at night, Imdur 15 mg daily, midodrine 5 mg 3 times a day - Most recent echocardiogram obtained in 09/2023 revealing ejection fraction 5% with moderate to severe MR -Patient underwent Lexiscan stress test in January 2024 revealing large area of previous inferior wall infarct. Possible minimal dale-infarct ischemia at the apex. Transient ischemic dilatation ratio was elevated. - Cardiac catheterization history: September 2023 revealing three-vessel coronary artery disease with chronic occlusion of the right coronary artery and significant disease involving the circumflex coronary artery and diffuse disease involving the LAD. Medical management was recommended. 05/19/2024 Patient examined this morning at the bedside. Patient currently denies any chest pain or pressure. He reports improvement in his shortness of breath. He remains on Lasix 40 mg every 8 hours. Creatinine today 2.57. Cardiogram completed revealing ejection fraction 20 to 25%, global hypokinesis, moderate pulmonary hypertension, mild to moderate tricuspid regurgitation. Patient currently has a director medical safety at the bedside due to suicidal ideation. 05/20/2024 Patient examined this morning at the bedside. Patient currently denies chest pain or pressure. Patient reports improvement in his shortness of breath. He remains on IV Lasix 40 mg every 8 hours. Interventional radiology has been consulted for paracentesis. Kidney function from this morning remains pending. 05/21/2024 Patient examined this morning at the bedside. Patient currently denies chest pain or pressure. He reports improvement in his shortness of breath. He underwent paracentesis yesterday with 12 L of fluid removed. He continues to have lower extremity edema although improving. He remains on IV Lasix. Creatinine remains elevated at 2.55 today. PHYSICAL EXAM: VITAL SIGNS: Reviewed. GENERAL: Well-developed in no acute distress. HEENT: Head is normocephalic. Pupils are equal, round. Sclerae anicteric. Mucous membranes of the mouth are moist. Neck supple. No JVD or thyromegaly LUNGS: Respirations even and unlabored. Lungs diminished at the bases HEART: Regular rate and rhythm. S1 and S2 heard. Systolic murmur noted ABDOMEN: Soft. Nondistended. Nontender. EXTREMITIES: Normal range of motion. No clubbing or cyanosis. Peripheral pulses intact. 1-2+ bilateral lower extremity edema NEUROLOGIC: Awake and alert. Oriented x 3. ASSESSMENT: Shortness of breath Acute on chronic heart failure with reduced EF, 2024% Acute on chronic kidney disease Coronary artery disease with known CONTAINER REPAIRER of RCA and significant disease involving circumflex and LAD Ischemic cardiomyopathy, on LifeVest earlier this year, refusing ICD Status post paracentesis with removal of 12 L of fluid Hypertension Hyperlipidemia Diabetes Obesity: BMI 41.1 Moderate pulmonary hypertension Suicidal ideation PLAN: Continue to hold Farxiga and Aldactone secondary to worsening kidney function Decrease Lasix to 40 mg every 12 hours Daily weights, accurate intake and output, and monitoring of kidney function Discussed ICD again with patient on 05/20/24. Patient states he no longer is interested in ICD. He states he does not want to have this performed and understands the risks of not having ICD including . EP consult cancelled yesterday. Further recommendations pending patient course Nurse practitioner note has been reviewed by physician. Signing provider agrees with the documented findings, assessment, and plan of care documented by FUR FLOOR WORKER as a scribe. Objective - Vital Signs Vital signs: Vital Signs Temp 97.7 F 05/21/24 08:52 Pulse 81 05/21/24 11:37 Resp 16 05/21/24 11:37 BP 96/67 05/21/24 11:37 Pulse Ox 98 05/21/24 11:37 FiO2 Intake & Output 05/20/24 05/21/24 05/21/24 18:59 06:59 18:59 Intake Total 1797 240 Output Total 1050 575 Balance 747 -575 240 Weight 121 kg Intake: Oral 1797 240 Output: Urine 1050 575 Other: Voiding Method Indwelling Catheter Indwelling Catheter Indwelling Catheter # Bowel Movements 0 - Labs CBC & Chem 7: 05/19/24 06:09 05/21/24 05:59 Labs: Abnormal Lab Results - Last 24 Hours (Table) 05/20/24 05/21/24 Range/Units 12:01 05:59 Sodium 135 L 135 L (137-145) mmol/L Carbon Dioxide 31 H 33 H (22-30) mmol/L BUN 56 H 56 H (9-20) mg/dL Creatinine 2.48 H 2.55 H (0.66-1.25) mg/dL Glucose 106 H 112 H (74-99) mg/dL Calcium 8.3 L (8.4-10.2) mg/dL
--- NOTE | 2024-05-21 13:31 | P.PN ---
Subjective patient is seen for follow-up for acute kidney injury, cardiorenal. Patient is currently being diuresed. Shortness of breath has improved. No significant complaints today. Status post paracentesis off 12.2 L yesterday Serum creatinine staying at 2.5 mg/dL. 24-hour urine output at 1625 mL Objective - Vital Signs Vital signs: Vital Signs Temp 97.7 F 05/21/24 08:52 Pulse 81 05/21/24 11:37 Resp 16 05/21/24 11:37 BP 96/67 05/21/24 11:37 Pulse Ox 98 05/21/24 11:37 FiO2 Intake & Output 05/20/24 05/21/24 05/21/24 18:59 06:59 18:59 Intake Total 1797 240 Output Total 1050 575 Balance 747 -575 240 Weight 121 kg Intake: Oral 1797 240 Output: Urine 1050 575 Other: Voiding Method Indwelling Catheter Indwelling Catheter Indwelling Catheter # Bowel Movements 0 - Exam patient is awake, comfortable, no acute distress. 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 Acute kidney injury, cardiorenal. currently with indwelling Reed catheter for urine retention. UA shows 1+ protein and moderate blood, hyaline casts 37 2. Chronic kidney disease stage III with previous creatinine 1.4 secondary to nephrosclerosis and cardiorenal syndrome 3. Acute on chronic CHF with decreased ejection fraction of 15-20% 4. Volume overload 5. History of BPH maintained on Flomax 6. Anemia , iron replete. Most likely anemia of chronic disease. Plan: continue with IV Lasix continue with Reed catheter Continue with Flomax Repeat labs in a.m. Maintain salt and fluid restriction.
--- NOTE | 2024-05-21 14:19 | P.PN ---
Subjective Progress Note Date: 05/21/24 This is a pleasant 58-year-old male he is currently receiving IV Lasix 40 mg every 8 hours for an acute CHF exacerbation. Patient had an abdominal ultrasound done showing moderate ascites and is currently down for a paracentesis. His echocardiogram reveals an EF of 20 to 25% consistent with an ischemic cardiomyopathy. He will be followed up by cardiology today for further evaluation for an ICD. Earlier this year patient was using a LifeVest. Blood work from today is currently pending. Was evaluated by psychiatry for suicidal ideation and severe depression. Psychiatry is recommending inpatient psychiatric treatment once patient has been medically cleared and he does require a 24/7 sitter at this time. 05/21/2024 Patient evaluated in follow-up on the medical floor. Patient paracentesis yes terday with 12.3 L of fluid taken off. Received Albumin afterwards. Lasix has been decreased to 40 mg IV twice a day. Indwelling catheter remains in place. BUN is 56 and creatinine is 2.55 today. Review of Systems Constitutional: Denied any fatigue denied any fever. Cardio vascular: denied any chest pain, palpitations Gastrointestinal: denied any nausea, vomiting, diarrhea Pulmonary: Denied any shortness of breath cough Neurologic denied any new focal deficits All inpatient medications were reviewed and appropriate changes in these medications as dictated in the interval history and assessment and plan. PHYSICAL EXAMINATION: GENERAL: The patient is alert and oriented x3, not in any acute distress. Well developed, well nourished. HEENT: Pupils are round and equally reacting to light. EOMI. No scleral icterus. No conjunctival pallor. Normocephalic, atraumatic. No pharyngeal erythema. No thyromegaly. CARDIOVASCULAR: S1 and S2 present. No murmurs, rubs, or gallops. PULMONARY: Chest is clear to auscultation, no wheezing or crackles. ABDOMEN: Soft, nontender, nondistended, normoactive bowel sounds. No palpable organomegaly. MUSCULOSKELETAL: No joint swelling or deformity. EXTREMITIES: No cyanosis, clubbing, or pedal edema. NEUROLOGICAL: Gross neurological examination did not reveal any focal deficits. SKIN: No rashes. Assessment and plan Acute on chronic congestive heart failure systolic dysfunction Ischemic cardiomyopathy received LifeVest in the past patient will need ICD evaluation Ascites secondary to cirrhosis of the liver patient is undergoing paracentesis Acute kidney injury secondary to cardiorenal syndrome improving with diuresis Chronic kidney disease stage III Diabetes mellitus type 2 BPH on Flomax Anemia iron deficiency as well as anemia of chronic disease GI prophylaxis DVT prophylaxis Full code Plan Continue IV Lasix 40 mg every 12 hours and strict intake and output monitoring Continue indwelling Reed catheter Psychiatry has evaluated this patient and recommending inpatient psychiatric treatment once medically cleared secondary to suicidal ideation and worsening depression maintain health and safety representative 24 7 at this time. Nephrology and cardiology are following closely Repeat blood work in the morning The impression and plan of care has been dictated by Leigh Torres, Nurse Practitioner as directed. Dr. Tl MD I have performed a history and physical examination and medical decision making of this patient, discussed the same with the dictator, and agree with the dictators assessment and plan as written, documented as a scribe. Based on total visit time, I have performed more than 50% of this visit. Objective - Vital Signs Vital signs: Vital Signs Temp 97.7 F 05/21/24 08:52 Pulse 81 05/21/24 11:37 Resp 16 05/21/24 11:37 BP 96/67 05/21/24 11:37 Pulse Ox 98 05/21/24 11:37 FiO2 Intake & Output 05/20/24 05/21/24 05/21/24 18:59 06:59 18:59 Intake Total 1797 240 Output Total 1050 575 Balance 747 -575 240 Weight 121 kg Intake: Oral 1797 240 Output: Urine 1050 575 Other: Voiding Method Indwelling Catheter Indwelling Catheter Indwelling Catheter # Bowel Movements 0 - Labs CBC & Chem 7: 05/19/24 06:09 05/21/24 05:59 Labs: Abnormal Lab Results - Last 24 Hours (Table) 05/21/24 Range/Units 05:59 Sodium 135 L (137-145) mmol/L Carbon Dioxide 33 H (22-30) mmol/L BUN 56 H (9-20) mg/dL Creatinine 2.55 H (0.66-1.25) mg/dL Glucose 112 H (74-99) mg/dL Assessment and Plan Time with Patient: Less than 30
[2024-05-22 06:50] LABS: African American GFR (CKD) 35 (>60 ml/min/1.73 sqM); Anion Gap 1 mmol/L; Blood Urea Nitrogen 56 mg/dL (9-20); Calcium 8.3 mg/dL (8.4-10.2); Carbon Dioxide 32 mmol/L (22-30); Chloride 101 mmol/L (98-107); Glucose 105 mg/dL (74-99); Non-African American GFR(CKD) 30 (>60 ml/min/1.73 sqM); Sodium 134 mmol/L (137-145)
--- NOTE | 2024-05-22 12:24 | P.PN ---
Subjective patient is seen for follow-up for acute kidney injury, cardiorenal. Patient is currently being diuresed. Shortness of breath has improved. No significant complaints today. Status post paracentesis off 12.2 L on 05/20/2024 Serum creatinine at 2.3 today 24-hour urine output at 2100 mL Objective - Vital Signs Vital signs: Vital Signs Temp 97.7 F 05/22/24 09:25 Pulse 86 05/22/24 09:25 Resp 16 05/22/24 09:25 BP 114/76 05/22/24 09:25 Pulse Ox 99 05/22/24 09:25 FiO2 Intake & Output 05/21/24 05/22/24 05/22/24 18:59 06:59 18:59 Intake Total 688 240 Output Total 900 1200 Balance -212 -1200 240 Weight 112.3 kg Intake: Oral 688 240 Output: Urine 900 1200 Other: Voiding Method Indwelling Catheter Indwelling Catheter Indwelling Catheter # Bowel Movements 1 - Exam patient is awake, comfortable, no acute distress. 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 Acute kidney injury, cardiorenal. currently with indwelling Reed catheter for urine retention. UA shows 1+ protein and moderate blood, hyaline casts 37. Renal ultrasound on 10/06/2023 did not show any obstructive uropathy 2. Chronic kidney disease stage III with previous creatinine 1.4 secondary to nephrosclerosis and cardiorenal syndrome 3. Acute on chronic CHF with decreased ejection fraction of 15-20% 4. Volume overload 5. History of BPH maintained on Flomax 6. Anemia , iron replete. Most likely anemia of chronic disease. Plan: continue with IV Lasix continue with Reed catheter Continue with Flomax Repeat labs in a.m. Maintain salt and fluid restriction.
--- NOTE | 2024-05-22 13:28 | P.PN ---
Subjective Progress Note Date: 05/22/24 This is a pleasant 58-year-old male he is currently receiving IV Lasix 40 mg every 8 hours for an acute CHF exacerbation. Patient had an abdominal ultrasound done showing moderate ascites and is currently down for a paracentesis. His echocardiogram reveals an EF of 20 to 25% consistent with an ischemic cardiomyopathy. He will be followed up by cardiology today for further evaluation for an ICD. Earlier this year patient was using a LifeVest. Blood work from today is currently pending. Was evaluated by psychiatry for suicidal ideation and severe depression. Psychiatry is recommending inpatient psychiatric treatment once patient has been medically cleared and he does require a 24/7 sitter at this time. 05/21/2024 Patient evaluated in follow-up on the medical floor. Patient paracentesis yes terday with 12.3 L of fluid taken off. Received Albumin afterwards. Lasix has been decreased to 40 mg IV twice a day. Indwelling catheter remains in place. BUN is 56 and creatinine is 2.55 today. 05/22/2024 Patient is eval today in follow-up in the medical floor. He continues on IV Lasix 40 mg every 12 hours. His creatinine is improved down to 2.30. We will plan for a voiding trial today. Patient reevaluation this patient and he does not require inpatient psychiatric treatment on discharge. Sitter has been discontinued. Review of Systems Constitutional: Denied any fatigue denied any fever. Cardio vascular: denied any chest pain, palpitations Gastrointestinal: denied any nausea, vomiting, diarrhea Pulmonary: Denied any shortness of breath cough Neurologic denied any new focal deficits All inpatient medications were reviewed and appropriate changes in these medications as dictated in the interval history and assessment and plan. PHYSICAL EXAMINATION: GENERAL: The patient is alert and oriented x3, not in any acute distress. Well developed, well nourished. HEENT: Pupils are round and equally reacting to light. EOMI. No scleral icterus. No conjunctival pallor. Normocephalic, atraumatic. No pharyngeal erythema. No thyromegaly. CARDIOVASCULAR: S1 and S2 present. No murmurs, rubs, or gallops. PULMONARY: Chest is clear to auscultation, no wheezing or crackles. ABDOMEN: Soft, nontender, nondistended, normoactive bowel sounds. No palpable organomegaly. MUSCULOSKELETAL: No joint swelling or deformity. EXTREMITIES: No cyanosis, clubbing, or pedal edema. NEUROLOGICAL: Gross neurological examination did not reveal any focal deficits. SKIN: No rashes. Mild peripheral edema Assessment and plan Acute on chronic congestive heart failure systolic dysfunction Ischemic cardiomyopathy received LifeVest in the past patient will need ICD evaluation Ascites secondary to cirrhosis of the liver patient this post paracentesis with 12.3 L of fluid off Acute kidney injury secondary to cardiorenal syndrome improving with diuresis Chronic kidney disease stage III Diabetes mellitus type 2 BPH on Flomax Urinary retention requiring indwelling Reed catheter Anemia iron deficiency as well as anemia of chronic disease GI prophylaxis DVT prophylaxis Full code Plan Continue IV Lasix 40 mg every 12 hours and strict intake and output monitoring Patient is continued on a 1500 mL fluid restriction Continue indwelling Reed catheter No need for inpatient psychiatric treatment on discharge. Once medically clear patient for returning home with home care services. Nephrology and cardiology are following closely Repeat blood work in the morning The impression and plan of care has been dictated by Leigh Torres, Nurse Practitioner as directed. Dr. Tl MD I have performed a history and physical examination and medical decision making of this patient, discussed the same with the dictator, and agree with the dictators assessment and plan as written, documented as a scribe. Based on total visit time, I have performed more than 50% of this visit. Objective - Vital Signs Vital signs: Vital Signs Temp 97.7 F 05/22/24 09:25 Pulse 86 05/22/24 09:25 Resp 16 05/22/24 09:25 BP 114/76 05/22/24 09:25 Pulse Ox 99 05/22/24 09:25 FiO2 Intake & Output 05/21/24 05/22/24 05/22/24 18:59 06:59 18:59 Intake Total 688 240 Output Total 900 1200 Balance -212 -1200 240 Weight 112.3 kg Intake: Oral 688 240 Output: Urine 900 1200 Other: Voiding Method Indwelling Catheter Indwelling Catheter # Bowel Movements 1 - Labs CBC & Chem 7: 05/19/24 06:09 05/22/24 05:59 Labs: Abnormal Lab Results - Last 24 Hours (Table) 05/22/24 Range/Units 05:59 Sodium 134 L (137-145) mmol/L Carbon Dioxide 32 H (22-30) mmol/L BUN 56 H (9-20) mg/dL Creatinine 2.30 H (0.66-1.25) mg/dL Glucose 105 H (74-99) mg/dL Calcium 8.3 L (8.4-10.2) mg/dL Microbiology - Last 24 Hours (Table) 05/20/24 09:15 Gram Stain - Preliminary Ascites Fluid Body Fluid Culture - Preliminary Assessment and Plan Time with Patient: Less than 30
[2024-05-22] MEDS: MELATONIN 5 MG TABLET PO PRN (20:00)
[2024-05-23 07:34] LABS: African American GFR (CKD) 35 (>60 ml/min/1.73 sqM); Anion Gap 5 mmol/L; Blood Urea Nitrogen 54 mg/dL (9-20); Calcium 8.5 mg/dL (8.4-10.2); Carbon Dioxide 32 mmol/L (22-30); Chloride 99 mmol/L (98-107); Glucose 96 mg/dL (74-99); Non-African American GFR(CKD) 30 (>60 ml/min/1.73 sqM); Potassium 4.1 mmol/L (3.5-5.1); Sodium 136 mmol/L (137-145)
--- NOTE | 2024-05-23 11:54 | P.PN ---
Subjective patient is seen for follow-up for acute kidney injury, cardiorenal. Patient is currently being diuresed. Shortness of breath has improved. No significant complaints today. Status post paracentesis off 12.2 L on 05/20/2024 Serum creatinine at 2.3 today 24-hour urine output at 2100 mL Objective - Vital Signs Vital signs: Vital Signs Temp 97.9 F 05/23/24 11:32 Pulse 85 05/23/24 11:32 Resp 14 05/23/24 11:32 BP 110/71 05/23/24 11:32 Pulse Ox 99 05/23/24 11:32 FiO2 Intake & Output 05/22/24 05/23/24 05/23/24 18:59 06:59 18:59 Intake Total 240 487 Output Total 500 100 600 Balance -260 -100 -113 Weight 109 kg Intake: Oral 240 487 Output: Urine 500 100 600 Uretheral (Reed) 100 Other: Voiding Method Indwelling Catheter Urinal Urinal # Voids 1 # Bowel Movements 1 - Exam patient is awake, comfortable, no acute distress. 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 Acute kidney injury, cardiorenal. currently with indwelling Reed catheter for urine retention. UA shows 1+ protein and moderate blood, hyaline casts 37. Renal ultrasound on 10/06/2023 did not show any obstructive uropathy 2. Chronic kidney disease stage III with previous creatinine 1.4 secondary to nephrosclerosis and cardiorenal syndrome 3. Acute on chronic CHF with decreased ejection fraction of 15-20% 4. Volume overload, improving 5. History of BPH maintained on Flomax 6. Anemia , iron replete. Most likely anemia of chronic disease. Plan: continue with IV Lasix, can switch to oral diuretics in a.m. continue with Reed catheter Continue with Flomax Repeat labs in a.m. Maintain salt and fluid restriction.
--- NOTE | 2024-05-23 23:44 | P.PN ---
Subjective Progress Note Date: 05/22/24 This is a 58-year-old male with a past medical history significant for congestive heart failure, coronary artery disease, chronic kidney disease, hypertension, hyperlipidemia, diabetes, cardiomyopathy, and obesity. Patient follows in the office with Dr. Gates. We have been asked to see the patient in consultation for congestive heart failure. Patient examined at the bedside. Patient presented to the hospital with a chief complaint of shortness of breath. He also reports worsening lower extremity edema and weeping of his upper and lower extremities. Patient was found to be in acute CHF and was started on IV Lasix. He continues to report shortness of breath this morning although improving. He denies any chest pain or pressure. The patient was last seen in the office in October 2023. At that time the patient was wearing a LifeVest. He states that he has since returned the LifeVest to [facility]. He reports that there was some talk about ICD implantation but the patient has been having some issues getting to the office and has not been able to make his follow-up appointments. DIAGNOSTICS: - EKG reveals sinus mechanism with no signs of acute ischemia - Chest xray findings consistent with mild to moderate CHF - Laboratory data: WBC 3.9. Hemoglobin 9.1. Platelet count 212. Sodium 136. Potassium 4.5. BUN 54. Creatinine 2.73. Troponin negative x 1. proBNP 23,700 - Current home cardiac medications include Farxiga 10 mg daily, Aldactone 25 mg daily, carvedilol 3.125 mg twice a day, Lasix 80 mg twice a day, simvastatin 20 mg at night, Imdur 15 mg daily, midodrine 5 mg 3 times a day - Most recent echocardiogram obtained in 09/2023 revealing ejection fraction 5% with moderate to severe MR -Patient underwent Lexiscan stress test in January 2024 revealing large area of previous inferior wall infarct. Possible minimal dale-infarct ischemia at the apex. Transient ischemic dilatation ratio was elevated. - Cardiac catheterization history: September 2023 revealing three-vessel coronary artery disease with chronic occlusion of the right coronary artery and significant disease involving the circumflex coronary artery and diffuse disease involving the LAD. Medical management was recommended. 05/19/2024 Patient examined this morning at the bedside. Patient currently denies any chest pain or pressure. He reports improvement in his shortness of breath. He remains on Lasix 40 mg every 8 hours. Creatinine today 2.57. Cardiogram completed revealing ejection fraction 20 to 25%, global hypokinesis, moderate pulmonary hypertension, mild to moderate tricuspid regurgitation. Patient currently has a patient safety manager at the bedside due to suicidal ideation. 05/20/2024 Patient examined this morning at the bedside. Patient currently denies chest pain or pressure. Patient reports improvement in his shortness of breath. He remains on IV Lasix 40 mg every 8 hours. Interventional radiology has been consulted for paracentesis. Kidney function from this morning remains pending. 05/21/2024 Patient examined this morning at the bedside. Patient currently denies chest p ain or pressure. He reports improvement in his shortness of breath. He underwent paracentesis yesterday with 12 L of fluid removed. He continues to have lower extremity edema although improving. He remains on IV Lasix. Creatinine remains elevated at 2.55 today. 05/22/2024 Creatinine 2.3 today, BP 116/68, heart rate 72, Coming along well. PHYSICAL EXAM: VITAL SIGNS: Reviewed. GENERAL: Well-developed in no acute distress. HEENT: Head is normocephalic. Pupils are equal, round. Sclerae anicteric. Mucous membranes of the mouth are moist. Neck supple. No JVD or thyromegaly LUNGS: Respirations even and unlabored. Lungs diminished at the bases HEART: Regular rate and rhythm. S1 and S2 heard. Systolic murmur noted ABDOMEN: Soft. Nondistended. Nontender. EXTREMITIES: Normal range of motion. No clubbing or cyanosis. Peripheral pulses intact. 1-2+ bilateral lower extremity edema NEUROLOGIC: Awake and alert. Oriented x 3. 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 Patient states he no longer is interested in ICD. He states he does not want to have this performed and understands the risks of not having ICD including . EP consult cancelled yesterday. Further recommendations pending patient course Objective - Vital Signs Vital signs: Vital Signs Temp 97.8 F 05/23/24 19:52 Pulse 82 05/23/24 19:52 Resp 16 05/23/24 19:52 BP 101/65 05/23/24 19:52 Pulse Ox 100 05/23/24 19:52 FiO2 Intake & Output 05/23/24 05/23/24 05/24/24 06:59 18:59 06:59 Intake Total 967 10 Output Total 100 900 Balance -100 67 10 Weight 109 kg Intake: IV 10 Invasive Line 2 10 Oral 967 Output: Urine 100 900 Uretheral (Reed) 100 Other: Voiding Method Urinal Urinal Urinal - Labs CBC & Chem 7: 05/19/24 06:09 05/23/24 06:38 Labs: Abnormal Lab Results - Last 24 Hours (Table) 05/23/24 Range/Units 06:38 Sodium 136 L (137-145) mmol/L Carbon Dioxide 32 H (22-30) mmol/L BUN 54 H (9-20) mg/dL Creatinine 2.32 H (0.66-1.25) mg/dL Microbiology - Last 24 Hours (Table) 05/20/24 09:15 Gram Stain - Preliminary Ascites Fluid Body Fluid Culture - Preliminary
--- NOTE | 2024-05-23 23:46 | P.PN ---
Subjective Progress Note Date: 05/23/24 This is a 58-year-old male with a past medical history significant for congestive heart failure, coronary artery disease, chronic kidney disease, hypertension, hyperlipidemia, diabetes, cardiomyopathy, and obesity. Patient follows in the office with Dr. Gates. We have been asked to see the patient in consultation for congestive heart failure. Patient examined at the bedside. Patient presented to the hospital with a chief complaint of shortness of breath. He also reports worsening lower extremity edema and weeping of his upper and lower extremities. Patient was found to be in acute CHF and was started on IV Lasix. He continues to report shortness of breath this morning although improving. He denies any chest pain or pressure. The patient was last seen in the office in October 2023. At that time the patient was wearing a LifeVest. He states that he has since returned the LifeVest to [facility]. He reports that there was some talk about ICD implantation but the patient has been having some issues getting to the office and has not been able to make his follow-up appointments. DIAGNOSTICS: - EKG reveals sinus mechanism with no signs of acute ischemia - Chest xray findings consistent with mild to moderate CHF - Laboratory data: WBC 3.9. Hemoglobin 9.1. Platelet count 212. Sodium 136. Potassium 4.5. BUN 54. Creatinine 2.73. Troponin negative x 1. proBNP 23,700 - Current home cardiac medications include Farxiga 10 mg daily, Aldactone 25 mg daily, carvedilol 3.125 mg twice a day, Lasix 80 mg twice a day, simvastatin 20 mg at night, Imdur 15 mg daily, midodrine 5 mg 3 times a day - Most recent echocardiogram obtained in 09/2023 revealing ejection fraction 5% with moderate to severe MR -Patient underwent Lexiscan stress test in January 2024 revealing large area of previous inferior wall infarct. Possible minimal dale-infarct ischemia at the apex. Transient ischemic dilatation ratio was elevated. - Cardiac catheterization history: September 2023 revealing three-vessel coronary artery disease with chronic occlusion of the right coronary artery and significant disease involving the circumflex coronary artery and diffuse disease involving the LAD. Medical management was recommended. 05/19/2024 Patient examined this morning at the bedside. Patient currently denies any chest pain or pressure. He reports improvement in his shortness of breath. He remains on Lasix 40 mg every 8 hours. Creatinine today 2.57. Cardiogram completed revealing ejection fraction 20 to 25%, global hypokinesis, moderate pulmonary hypertension, mild to moderate tricuspid regurgitation. Patient currently has a fire safety director at the bedside due to suicidal ideation. 05/20/2024 Patient examined this morning at the bedside. Patient currently denies chest pain or pressure. Patient reports improvement in his shortness of breath. He remains on IV Lasix 40 mg every 8 hours. Interventional radiology has been consulted for paracentesis. Kidney function from this morning remains pending. 05/21/2024 Patient examined this morning at the bedside. Patient currently denies chest p ain or pressure. He reports improvement in his shortness of breath. He underwent paracentesis yesterday with 12 L of fluid removed. He continues to have lower extremity edema although improving. He remains on IV Lasix. Creatinine remains elevated at 2.55 today. 05/22/2024 Creatinine 2.3 today, BP 116/68, heart rate 72, Still appears volume overloaded. 05/23/2024 Still appears volume overloaded, kidney function stable, blood pressure 110 systolic. Heart rate 72 beats minute sinus rhythm on telemetry. No major arrhythmias noted on telemetry over last 24 hours monitoring. PHYSICAL EXAM: VITAL SIGNS: Reviewed. GENERAL: Well-developed in no acute distress. HEENT: Head is normocephalic. Pupils are equal, round. Sclerae anicteric. Mucous membranes of the mouth are moist. Neck supple. No JVD or thyromegaly LUNGS: Respirations even and unlabored. Lungs diminished at the bases HEART: Regular rate and rhythm. S1 and S2 heard. Systolic murmur noted ABDOMEN: Soft. Nondistended. Nontender. EXTREMITIES: Normal range of motion. No clubbing or cyanosis. Peripheral pulses intact. 1-2+ bilateral lower extremity edema NEUROLOGIC: Awake and alert. Oriented x 3. 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 Asked nephrology for recommendations Lasix to 40 mg every 12 hours Daily weights, accurate intake and output, and monitoring of kidney function Discussed ICD again with patient on 05/20/24. Patient states he no longer is interested in ICD. He states he does not want to have this performed and understands the risks of not having ICD including . EP consult cancelled yesterday. Further recommendations pending patient course Objective - Vital Signs Vital signs: Vital Signs Temp 97.8 F 05/23/24 19:52 Pulse 82 05/23/24 19:52 Resp 16 05/23/24 19:52 BP 101/65 05/23/24 19:52 Pulse Ox 100 05/23/24 19:52 FiO2 Intake & Output 05/23/24 05/23/24 05/24/24 06:59 18:59 06:59 Intake Total 967 10 Output Total 100 900 Balance -100 67 10 Weight 109 kg Intake: IV 10 Invasive Line 2 10 Oral 967 Output: Urine 100 900 Uretheral (Reed) 100 Other: Voiding Method Urinal Urinal Urinal - Labs CBC & Chem 7: 05/19/24 06:09 05/23/24 06:38 Labs: Abnormal Lab Results - Last 24 Hours (Table) 05/23/24 Range/Units 06:38 Sodium 136 L (137-145) mmol/L Carbon Dioxide 32 H (22-30) mmol/L BUN 54 H (9-20) mg/dL Creatinine 2.32 H (0.66-1.25) mg/dL Microbiology - Last 24 Hours (Table) 05/20/24 09:15 Gram Stain - Preliminary Ascites Fluid Body Fluid Culture - Preliminary
--- NOTE | 2024-05-24 04:56 | P.PN ---
Subjective Progress Note Date: 05/23/24 This is a pleasant 58-year-old male he is currently receiving IV Lasix 40 mg every 8 hours for an acute CHF exacerbation. Patient had an abdominal ultrasound done showing moderate ascites and is currently down for a paracentesis. His echocardiogram reveals an EF of 20 to 25% consistent with an ischemic cardiomyopathy. He will be followed up by cardiology today for further evaluation for an ICD. Earlier this year patient was using a LifeVest. Blood work from today is currently pending. Was evaluated by psychiatry for suicidal ideation and severe depression. Psychiatry is recommending inpatient psychiatric treatment once patient has been medically cleared and he does require a 24/7 sitter at this time. 05/21/2024 Patient evaluated in follow-up on the medical floor. Patient paracentesis yesterday with 12.3 L of fluid taken off. Received Albumin afterwards. Lasix has been decreased to 40 mg IV twice a day. Indwelling catheter remains in place. BUN is 56 and creatinine is 2.55 today. 05/22/2024 Patient is eval today in follow-up in the medical floor. He continues on IV Lasix 40 mg every 12 hours. His creatinine is improved down to 2.30. We will plan for a voiding trial today. Patient reevaluation this patient and he does not require inpatient psychiatric treatment on discharge. Sitter has been discontinued. 05/23/2024 Patient is seen in follow-up today with cardiology following along with nephrology kidney functions continue to be elevated and patient continues with indwelling Reed catheter. Cardiology following as well initially recommending ICD placement although patient is refusing. Patient also to continue with LifeVest and patient reports this is uncomfortable and does not fit with sleeping and does not want to continue using it. Patient is maintained on IV Lasix and will continue with per nephrology. Patient is recent paracentesis with 12 L removed. Review of Systems Constitutional: Denied any fatigue denied any fever. Cardio vascular: denied any chest pain, palpitations Gastrointestinal: denied any nausea, vomiting, diarrhea Pulmonary: Denied any worsening shortness of breath cough Neurologic denied any new focal deficits, reports to feeling weak All inpatient medications were reviewed and appropriate changes in these medications as dictated in the interval history and assessment and plan. PHYSICAL EXAMINATION: GENERAL: The patient is alert and oriented x3, not in any acute distress. Well developed, well nourished. Obese, appears older than stated age HEENT: Pupils are round and equally reacting to light. EOMI. No scleral icterus. No conjunctival pallor. Normocephalic, atraumatic. No pharyngeal erythema. No thyromegaly. CARDIOVASCULAR: S1 and S2 muffled PULMONARY: Chest is clear to auscultation, no wheezing or crackles. ABDOMEN: Soft, nontender, distended, normoactive bowel sounds. No palpable organomegaly. MUSCULOSKELETAL: No joint swelling or deformity. EXTREMITIES: No cyanosis, clubbing, or pedal edema. NEUROLOGICAL: Gross neurological examination did not reveal any focal deficits. SKIN: No rashes. Mild peripheral edema Assessment and plan Acute on chronic congestive heart failure systolic dysfunction Ischemic cardiomyopathy received LifeVest in the past, patient refusing to continue with LifeVest, patient refusing ICD placement Ascites secondary to cirrhosis of the liver, status post paracentesis with 12.3 L of fluid off Acute kidney injury secondary to cardiorenal syndrome improving with diuresis Chronic kidney disease stage III Diabetes mellitus type 2 BPH on Flomax Urinary retention requiring indwelling Reed catheter Anemia iron deficiency as well as anemia of chronic disease Obesity with a BMI of 36.9 Noncompliance with medications and follow-up and treatment plan GI prophylaxis DVT prophylaxis Full code Plan Continue IV Lasix 40 mg every 12 hours and strict intake and output monitoring Patient is continued on a 1500 mL fluid restriction Continue indwelling Reed catheter No need for inpatient psychiatric treatment on discharge. Once medically clear patient for returning home with home care services. Nephrology and cardiology are following closely. Patient is refusing ICD pl acement and EP consult was discontinued. Patient had previous LifeVest and reports is refusing to use as it does not fit and is uncomfortable. Cardiology is aware. Repeat blood work in the morning The impression and plan of care has been dictated by Yandy Martínez Nurse Practitioner as directed. Dr. Tl MD I have performed a history and physical examination and medical decision making of this patient, discussed the same with the dictator, and agree with the dictators assessment and plan as written, documented as a scribe. Based on total visit time, I have performed more than 50% of this visit. Objective - Vital Signs Vital signs: Vital Signs Temp 98.7 F 05/23/24 07:39 Pulse 84 05/23/24 07:39 Resp 14 05/23/24 07:39 BP 110/72 05/23/24 07:39 Pulse Ox 96 05/23/24 07:39 FiO2 Intake & Output 05/22/24 05/23/24 05/23/24 18:59 06:59 18:59 Intake Total 240 247 Output Total 500 100 300 Balance -260 -100 -53 Weight 109 kg Intake: Oral 240 247 Output: Urine 500 100 300 Uretheral (Reed) 100 Other: Voiding Method Indwelling Catheter Urinal # Voids 1 # Bowel Movements 1 - Labs CBC & Chem 7: 05/19/24 06:09 05/23/24 06:38 Labs: Abnormal Lab Results - Last 24 Hours (Table) 05/23/24 Range/Units 06:38 Sodium 136 L (137-145) mmol/L Carbon Dioxide 32 H (22-30) mmol/L BUN 54 H (9-20) mg/dL Creatinine 2.32 H (0.66-1.25) mg/dL Microbiology - Last 24 Hours (Table) 05/20/24 09:15 Gram Stain - Preliminary Ascites Fluid Body Fluid Culture - Preliminary
[2024-05-24 06:27] LABS: Basophils % (A) 1 %; Eosinophils # (A) 0.1 k/uL (0-0.7); Eosinophils % (A) 3 %; HCT 28.1 % (39.0-53.0); HGB 9.1 gm/dL (13.0-17.5); Lymphocytes # (A) 0.4 k/uL (1.0-4.8); Lymphocytes % (A) 13 %; MCH 30.3 pg (25.0-35.0); MCHC 32.3 g/dL (31.0-37.0); MCV 93.9 fL (80.0-100.0); Mean Platelet Volume 7.6; Monocytes # (A) 0.3 k/uL (0-1.0); Monocytes % (A) 9 %; Neutrophils # (A) 2.1 k/uL (1.3-7.7); Neutrophils % (A) 70 %; Platelet Count 163 k/uL (150-450); RDW 15.6 % (11.5-15.5)
[2024-05-24 06:29] LABS: ALT 12 U/L (4-49); AST 32 U/L (17-59); African American GFR (CKD) 38 (>60 ml/min/1.73 sqM); Albumin 3.3 g/dL (3.5-5.0); Alkaline Phosphatase 167 U/L (38-126); Anion Gap 2 mmol/L; Blood Urea Nitrogen 55 mg/dL (9-20); Calcium 8.4 mg/dL (8.4-10.2); Carbon Dioxide 32 mmol/L (22-30); Chloride 102 mmol/L (98-107); Glucose 107 mg/dL (74-99); Magnesium 2.2 mg/dL (1.6-2.3); Non-African American GFR(CKD) 33 (>60 ml/min/1.73 sqM); Potassium 3.9 mmol/L (3.5-5.1); Sodium 136 mmol/L (137-145); Total Bilirubin 1.3 mg/dL (0.2-1.3); Total Protein 6.3 g/dL (6.3-8.2)
--- NOTE | 2024-05-24 11:11 | P.PN ---
Subjective Patient is seen in follow-up for acute kidney injury on chronic kidney disease. Sitting up in bed. Denies chest pain or shortness of breath. Admits to good urine output. Vital signs are stable. General: No acute distress. HEENT: Head exam is unremarkable. LUNGS: No audible rhonchi or wheezes. HEART: Rate and Rhythm are regular. ABDOMEN: Nontender. EXTREMITITES: 1+ edema. Objective - Vital Signs Vital signs: Vital Signs Temp 98.2 F 05/24/24 07:48 Pulse 86 05/24/24 07:48 Resp 14 05/24/24 07:48 BP 98/58 05/24/24 07:48 Pulse Ox 92 L 05/24/24 07:48 FiO2 Intake & Output 05/23/24 05/24/24 05/24/24 18:59 06:59 18:59 Intake Total 967 260 180 Output Total 900 1500 Balance 67 -1240 180 Weight 110.1 kg Intake: IV 20 Invasive Line 2 20 Oral 967 240 180 Output: Urine 900 1500 Other: Voiding Method Urinal Urinal Urinal - Labs CBC & Chem 7: 05/24/24 05:25 05/24/24 05:25 Labs: Abnormal Lab Results - Last 24 Hours (Table) 05/24/24 05/24/24 Range/Units 05:25 05:25 WBC 3.0 L (3.8-10.6) k/uL RBC 3.00 L (4.30-5.90) m/uL Hgb 9.1 L (13.0-17.5) gm/dL Hct 28.1 L (39.0-53.0) % RDW 15.6 H (11.5-15.5) % Lymphocytes # 0.4 L (1.0-4.8) k/uL Sodium 136 L (137-145) mmol/L Carbon Dioxide 32 H (22-30) mmol/L BUN 55 H (9-20) mg/dL Creatinine 2.14 H (0.66-1.25) mg/dL Glucose 107 H (74-99) mg/dL Alkaline Phosphatase 167 H (38-126) U/L Albumin 3.3 L (3.5-5.0) g/dL Microbiology - Last 24 Hours (Table) 05/20/24 09:15 Gram Stain - Preliminary Ascites Fluid Body Fluid Culture - Preliminary Assessment and Plan Plan: Assessment: 1. Acute kidney injury secondary to ATN secondary to cardiorenal syndrome. Ultrasound from October 2023 showed no evidence of hydronephrosis. Creatinine peaked at 2.73 this admission and is 2.14 today. 2. Chronic kidney disease stage IIIa with baseline creatinine near 1.4-1.6 from January 2024. 3. Volume overload. 4. Acute on chronic systolic CHF with ejection fraction of 20 to 25% with moderate mitral regurgitation and mild to moderate tricuspid regurgitation. 5. Anemia of chronic kidney disease. Rule out iron deficiency. On Aranesp. 6. Ascites status post paracentesis May 20, 2024 with 12.2 L drained. Plan: Stop IV Lasix. Add torsemide 40 mg once daily. Add Farxiga 5 mg once daily. Maintain low-salt diet and fluid restriction. Check iron studies. Avoid nephrotoxins.
[2024-05-24] MEDS: DAPAGLIFLOZIN PROPANEDIOL 5 MG TABLET PO SCH (11:43)
--- NOTE | 2024-05-24 13:07 | P.PN ---
Subjective Progress Note Date: 05/24/24 This is a 58-year-old male with a past medical history significant for congestive heart failure, coronary artery disease, chronic kidney disease, hypertension, hyperlipidemia, diabetes, cardiomyopathy, and obesity. Patient follows in the office with Dr. Gates. We have been asked to see the patient in consultation for congestive heart failure. Patient examined at the bedside. Patient presented to the hospital with a chief complaint of shortness of breath. He also reports worsening lower extremity edema and weeping of his upper and lower extremities. Patient was found to be in acute CHF and was started on IV Lasix. He continues to report shortness of breath this morning although improving. He denies any chest pain or pressure. The patient was last seen in the office in October 2023. At that time the patient was wearing a LifeVest. He states that he has since returned the LifeVest to [facility]. He reports that there was some talk about ICD implantation but the patient has been having some issues getting to the office and has not been able to make his follow-up appointments. DIAGNOSTICS: - EKG reveals sinus mechanism with no signs of acute ischemia - Chest xray findings consistent with mild to moderate CHF - Laboratory data: WBC 3.9. Hemoglobin 9.1. Platelet count 212. Sodium 136. Potassium 4.5. BUN 54. Creatinine 2.73. Troponin negative x 1. proBNP 23,700 - Current home cardiac medications include Farxiga 10 mg daily, Aldactone 25 mg daily, carvedilol 3.125 mg twice a day, Lasix 80 mg twice a day, simvastatin 20 mg at night, Imdur 15 mg daily, midodrine 5 mg 3 times a day - Most recent echocardiogram obtained in 09/2023 revealing ejection fraction 5% with moderate to severe MR -Patient underwent Lexiscan stress test in January 2024 revealing large area of previous inferior wall infarct. Possible minimal dale-infarct ischemia at the apex. Transient ischemic dilatation ratio was elevated. - Cardiac catheterization history: September 2023 revealing three-vessel coronary artery disease with chronic occlusion of the right coronary artery and significant disease involving the circumflex coronary artery and diffuse disease involving the LAD. Medical management was recommended. 05/19/2024 Patient examined this morning at the bedside. Patient currently denies any chest pain or pressure. He reports improvement in his shortness of breath. He remains on Lasix 40 mg every 8 hours. Creatinine today 2.57. Cardiogram completed revealing ejection fraction 20 to 25%, global hypokinesis, moderate pulmonary hypertension, mild to moderate tricuspid regurgitation. Patient currently has a campus safety officer at the bedside due to suicidal ideation. 05/20/2024 Patient examined this morning at the bedside. Patient currently denies chest pain or pressure. Patient reports improvement in his shortness of breath. He remains on IV Lasix 40 mg every 8 hours. Interventional radiology has been consulted for paracentesis. Kidney function from this morning remains pending. 05/21/2024 Patient examined this morning at the bedside. Patient currently denies chest p ain or pressure. He reports improvement in his shortness of breath. He underwent paracentesis yesterday with 12 L of fluid removed. He continues to have lower extremity edema although improving. He remains on IV Lasix. Creatinine remains elevated at 2.55 today. 05/22/2024 Creatinine 2.3 today, BP 116/68, heart rate 72, Still appears volume overloaded. 05/23/2024 Still appears volume overloaded, kidney function stable, blood pressure 110 systolic. Heart rate 72 beats minute sinus rhythm on telemetry. No major arrhythmias noted on telemetry over last 24 hours monitoring. 05/24 Patient is seen and examined. Blood pressure 98/58, heart rate 86, pulse ox 92% on room air. Repeat blood work reveals hemoglobin 9.1, WBC 3, sodium 136, potassium 3.9, BUN 55 and creatinine 2.14. . PHYSICAL EXAM: VITAL SIGNS: Reviewed. GENERAL: Well-developed in no acute distress. HEENT: Head is normocephalic. Pupils are equal, round. Sclerae anicteric. Mucous membranes of the mouth are moist. Neck supple. No JVD or thyromegaly LUNGS: Respirations even and unlabored. Lungs diminished at the bases HEART: Regular rate and rhythm. S1 and S2 heard. Systolic murmur noted ABDOMEN: Soft. Nondistended. Nontender. EXTREMITIES: Normal range of motion. No clubbing or cyanosis. Peripheral pulses intact. 1-2+ bilateral lower extremity edema NEUROLOGIC: Awake and alert. Oriented x 3. ASSESSMENT: Shortness of breath Acute on chronic heart failure with reduced EF, 20-25% Acute on chronic kidney disease Coronary artery disease with known FERMENTER of RCA and significant disease involving circumflex and LAD Ischemic cardiomyopathy, on LifeVest earlier this year, refusing ICD Status post paracentesis with removal of 12 L of fluid Hypertension Hyperlipidemia Diabetes Obesity: BMI 41.1 Moderate pulmonary hypertension Suicidal ideation PLAN: Continue current cardiac medications: Aspirin 81 mg daily, atorvastatin 10 mg at bedtime, Coreg 3.125 mg twice daily, Farxiga 5 mg daily, Imdur 15 mg daily Torsemide 40 mg daily per nephrology Daily weights, accurate intake and output, and monitoring of kidney function Plan is for medical treatment for ischemic cardiomyopathy. Patient is not a candidate for ICD. Cardiology will sign off this case and follow on an as-needed basis. Please reconsult for any new concerns. Patient may follow-up in the office in one to 2 weeks. Nurse practitioner note has been reviewed, I agree with documented findings and plan of care. Patient was seen and examined. Objective - Vital Signs Vital signs: Vital Signs Temp 98.2 F 05/24/24 07:48 Pulse 86 05/24/24 07:48 Resp 14 05/24/24 07:48 BP 98/58 05/24/24 07:48 Pulse Ox 92 L 05/24/24 07:48 FiO2 Intake & Output 05/23/24 05/24/24 05/24/24 18:59 06:59 18:59 Intake Total 967 260 180 Output Total 900 1500 Balance 67 -1240 180 Weight 110.1 kg Intake: IV 20 Invasive Line 2 20 Oral 967 240 180 Output: Urine 900 1500 Other: Voiding Method Urinal Urinal - Labs CBC & Chem 7: 05/24/24 05:25 05/24/24 05:25 Labs: Abnormal Lab Results - Last 24 Hours (Table) 05/24/24 05/24/24 Range/Units 05:25 05:25 WBC 3.0 L (3.8-10.6) k/uL RBC 3.00 L (4.30-5.90) m/uL Hgb 9.1 L (13.0-17.5) gm/dL Hct 28.1 L (39.0-53.0) % RDW 15.6 H (11.5-15.5) % Lymphocytes # 0.4 L (1.0-4.8) k/uL Sodium 136 L (137-145) mmol/L Carbon Dioxide 32 H (22-30) mmol/L BUN 55 H (9-20) mg/dL Creatinine 2.14 H (0.66-1.25) mg/dL Glucose 107 H (74-99) mg/dL Alkaline Phosphatase 167 H (38-126) U/L Albumin 3.3 L (3.5-5.0) g/dL Microbiology - Last 24 Hours (Table) 05/20/24 09:15 Gram Stain - Preliminary Ascites Fluid Body Fluid Culture - Preliminary
[2024-05-24 19:10] LABS: % Iron Saturation 14.95 (15.00-50.00)
--- NOTE | 2024-05-25 04:39 | P.PN ---
Subjective Progress Note Date: 05/24/24 This is a pleasant 58-year-old male he is currently receiving IV Lasix 40 mg every 8 hours for an acute CHF exacerbation. Patient had an abdominal ultrasound done showing moderate ascites and is currently down for a paracentesis. His echocardiogram reveals an EF of 20 to 25% consistent with an ischemic cardiomyopathy. He will be followed up by cardiology today for further evaluation for an ICD. Earlier this year patient was using a LifeVest. Blood work from today is currently pending. Was evaluated by psychiatry for suicidal ideation and severe depression. Psychiatry is recommending inpatient psychiatric treatment once patient has been medically cleared and he does require a 24/7 sitter at this time. 05/21/2024 Patient evaluated in follow-up on the medical floor. Patient paracentesis yesterday with 12.3 L of fluid taken off. Received Albumin afterwards. Lasix has been decreased to 40 mg IV twice a day. Indwelling catheter remains in place. BUN is 56 and creatinine is 2.55 today. 05/22/2024 Patient is eval today in follow-up in the medical floor. He continues on IV Lasix 40 mg every 12 hours. His creatinine is improved down to 2.30. We will plan for a voiding trial today. Patient reevaluation this patient and he does not require inpatient psychiatric treatment on discharge. Sitter has been discontinued. 05/23/2024 Patient is seen in follow-up today with cardiology following along with nephrology kidney functions continue to be elevated and patient continues with indwelling Reed catheter. Cardiology following as well initially recommending ICD placement although patient is refusing. Patient also to continue with LifeVest and patient reports this is uncomfortable and does not fit with sleeping and does not want to continue using it. Patient is maintained on IV Lasix and will continue with per nephrology. Patient is recent paracentesis with 12 L removed. 05/24/2024 Patient is seen in follow-up today with no acute overnight issues noted. Patient has been seen and evaluated by cardiology with adjustments to medications recommending outpatient follow-up with continuing to maximize medical management. Patient is not a candidate for ICD placement and also refusing any further LifeVest. Kidney functions improving and patient is making good urine and is being transition to torsemide. Will monitor overnight with probable discharge planning in the next 24 hours. Review of Systems Constitutional: Denied any fatigue denied any fever. Cardio vascular: denied any chest pain, palpitations Gastrointestinal: denied any nausea, vomiting, diarrhea Pulmonary: Denied any worsening shortness of breath cough Neurologic denied any new focal deficits, reports to feeling weak All inpatient medications were reviewed and appropriate changes in these med ications as dictated in the interval history and assessment and plan. PHYSICAL EXAMINATION: GENERAL: The patient is alert and oriented x3, not in any acute distress. Well developed, well nourished. Obese, appears older than stated age HEENT: Pupils are round and equally reacting to light. EOMI. No scleral icterus. No conjunctival pallor. Normocephalic, atraumatic. No pharyngeal erythema. No th yromegaly. CARDIOVASCULAR: S1 and S2 muffled PULMONARY: Chest is clear to auscultation, no wheezing or crackles. ABDOMEN: Soft, nontender, distended, normoactive bowel sounds. No palpable organomegaly. MUSCULOSKELETAL: No joint swelling or deformity. EXTREMITIES: No cyanosis, clubbing, or pedal edema. NEUROLOGICAL: Gross neurological examination did not reveal any focal deficits. SKIN: No rashes. Mild peripheral edema, pale Assessment and plan Acute on chronic congestive heart failure systolic dysfunction Ischemic cardiomyopathy received LifeVest in the past, patient refusing to continue with LifeVest, patient refusing ICD placement Ascites secondary to cirrhosis of the liver, status post paracentesis with 12.3 L of fluid off Acute kidney injury secondary to cardiorenal syndrome improving with diuresis, being transition to oral torsemide Chronic kidney disease stage III Diabetes mellitus type 2 BPH on Flomax Urinary retention requiring indwelling Reed catheter Anemia iron deficiency as well as anemia of chronic disease Obesity with a BMI of 36.9 Noncompliance with medications and follow-up and treatment plan GI prophylaxis DVT prophylaxis Full code Plan Patient was continued on continue IV Lasix and being transition to torsemide per nephrology. Patient is making good urine and kidney functions are stable. Patient is continued on a 1500 mL fluid restriction Continue indwelling Reed catheter, trial void and if continuing to retain may require Reed catheter with outpatient follow-up with urology No need for inpatient psychiatric treatment on discharge. Once medically clear patient for returning home with home care services. Nephrology and cardiology are following closely. Patient is refusing ICD placement and EP consult was discontinued. Patient had previous LifeVest and reports is refusing to use as it does not fit and is uncomfortable. Cardiology is aware. Adjustments to medications made and patient has been cleared by cardiology for outpatient follow-up Probable discharge in the next 24 hours The impression and plan of care has been dictated by Yandy Martínez , Nurse Practitioner as directed. Dr. Tl MD I have performed a history and physical examination and medical decision making of this patient, discussed the same with the dictator, and agree with the dictators assessment and plan as written, documented as a scribe. Based on total visit time, I have performed more than 50% of this visit. Objective - Vital Signs Vital signs: Vital Signs Temp 98.1 F 05/25/24 00:00 Pulse 86 05/25/24 02:00 Resp 16 05/25/24 02:00 BP 112/75 05/25/24 00:00 Pulse Ox 99 05/25/24 00:00 FiO2 Intake & Output 05/24/24 05/24/24 05/25/24 06:59 18:59 06:59 Intake Total 260 540 Output Total 1500 1200 Balance -1240 540 -1200 Weight 110.1 kg 112.3 kg Intake: IV 20 Invasive Line 2 20 Oral 240 540 Output: Urine 1500 1200 Other: Voiding Method Urinal Urinal Urinal - Labs CBC & Chem 7: 05/24/24 05:25 05/24/24 05:25 Labs: Abnormal Lab Results - Last 24 Hours (Table) 05/24/24 05/24/24 05/24/24 Range/Units 05:25 05:25 05:25 WBC 3.0 L (3.8-10.6) k/uL RBC 3.00 L (4.30-5.90) m/uL Hgb 9.1 L (13.0-17.5) gm/dL Hct 28.1 L (39.0-53.0) % RDW 15.6 H (11.5-15.5) % Lymphocytes # 0.4 L (1.0-4.8) k/uL Sodium 136 L (137-145) mmol/L Carbon Dioxide 32 H (22-30) mmol/L BUN 55 H (9-20) mg/dL Creatinine 2.14 H (0.66-1.25) mg/dL Glucose 107 H (74-99) mg/dL Iron 32 L (65-175) UG/DL TIBC 214 L (228-460) UG/DL % Saturation 14.95 L (15.00-50.00) Transferrin 153.0 L (204.0-354.0) mg/dL Alkaline Phosphatase 167 H (38-126) U/L Albumin 3.3 L (3.5-5.0) g/dL Microbiology - Last 24 Hours (Table) 05/20/24 09:15 Anaerobic Culture - Final Ascites Fluid 05/20/24 09:15 Gram Stain - Final Ascites Fluid Body Fluid Culture - Final
[2024-05-25 07:05] LABS: African American GFR (CKD) 40 (>60 ml/min/1.73 sqM); Anion Gap 4 mmol/L; Blood Urea Nitrogen 53 mg/dL (9-20); Calcium 8.5 mg/dL (8.4-10.2); Carbon Dioxide 31 mmol/L (22-30); Chloride 101 mmol/L (98-107); Glucose 95 mg/dL (74-99); Magnesium 2.2 mg/dL (1.6-2.3); Non-African American GFR(CKD) 35 (>60 ml/min/1.73 sqM); Potassium 3.8 mmol/L (3.5-5.1); Sodium 136 mmol/L (137-145)
[2024-05-25 08:01] VITALS: RESP 18
[2024-05-25] MEDS: TORSEMIDE 20 MG TAB PO SCH (08:18)
--- NOTE | 2024-05-25 10:28 | P.PN ---
Subjective Patient is seen in follow-up for acute kidney injury on chronic kidney disease. Resting in bed. Denies chest pain or shortness of breath. Admits to good urine output. Vital signs are stable. General: No acute distress. HEENT: Head exam is unremarkable. LUNGS: No audible rhonchi or wheezes. HEART: Rate and Rhythm are regular. ABDOMEN: Nontender. EXTREMITITES: 1+ edema. Objective - Vital Signs Vital signs: Vital Signs Temp 97.9 F 05/25/24 07:50 Pulse 90 05/25/24 10:09 Resp 18 05/25/24 10:09 BP 114/72 05/25/24 07:50 Pulse Ox 99 05/25/24 07:50 FiO2 Intake & Output 05/24/24 05/25/24 05/25/24 18:59 06:59 18:59 Intake Total 540 240 180 Output Total 1600 Balance 540 -1360 180 Weight 112.3 kg Intake: Oral 540 240 180 Output: Urine 1600 Other: Voiding Method Urinal Urinal Toilet Urinal - Labs CBC & Chem 7: 05/24/24 05:25 05/25/24 06:08 Labs: Abnormal Lab Results - Last 24 Hours (Table) 05/24/24 05/25/24 Range/Units 05:25 06:08 Sodium 136 L (137-145) mmol/L Carbon Dioxide 31 H (22-30) mmol/L BUN 53 H (9-20) mg/dL Creatinine 2.06 H (0.66-1.25) mg/dL Iron 32 L (65-175) UG/DL TIBC 214 L (228-460) UG/DL % Saturation 14.95 L (15.00-50.00) Transferrin 153.0 L (204.0-354.0) mg/dL Microbiology - Last 24 Hours (Table) 05/20/24 09:15 Anaerobic Culture - Final Ascites Fluid 05/20/24 09:15 Gram Stain - Final Ascites Fluid Body Fluid Culture - Final Assessment and Plan Plan: Assessment: 1. Acute kidney injury secondary to ATN secondary to cardiorenal syndrome. Ultrasound from October 2023 showed no evidence of hydronephrosis. Creatinine peaked at 2.73 this admission and is 2.06 today. 2. Chronic kidney disease stage IIIa with baseline creatinine near 1.4-1.6 from January 2024. 3. Volume overload. Improved with diuresis. 4. Acute on chronic systolic CHF with ejection fraction of 20 to 25% with moderate mitral regurgitation and mild to moderate tricuspid regurgitation. 5. Anemia of chronic kidney disease. Iron deficiency noted. On Aranesp. 6. Ascites status post paracentesis May 20, 2024 with 12.2 L drained. Plan: Maintain torsemide. Maintain Farxiga. Add maintenance potassium supplementation. Maintain low-salt diet and fluid restriction. Add IV iron. Avoid nephrotoxins.
[2024-05-25 11:01] VITALS: BP 108/70; PULSE 100; TEMP 97
[2024-05-25] MEDS: POTASSIUM CHLORIDE ER 10 MEQ TAB.ER.PRT PO SCH (11:30)
[2024-05-25] MEDS: SODIUM FERRIC GLUCONAT-SUCROSE 125 MG in SODIUM CHLORIDE 0.9% 100 ML IVPB SCH (11:30)
--- NOTE | 2024-05-31 08:55 | P.DS ---
Providers Date of admission: 05/17/24 17:23 Expected date of discharge: 05/25/24 Attending physician: Zay Pal Consults: 05/17/24 17:22 Consult Physician Routine Consulting Provider: Suresh Warren Consult Reason/Comments: chf Do you want consulting provider notified?: Yes Consult Physician Routine Consulting Provider: María Gomez Consult Reason/Comments: crf, edema,chf Do you want consulting provider notified?: Yes 05/18/24 14:24 Consult Physician Stat Consulting Provider: Roberto Johnston Consult Reason/Comments: suicidal ideation Do you want consulting provider notified?: Yes Primary care physician: Patricio Banuelos [place] Hospital Course: Final diagnosis Acute on chronic congestive heart failure systolic dysfunction Ischemic cardiomyopathy received LifeVest in the past, patient refusing to continue with LifeVest, patient refusing ICD placement Ascites secondary to cirrhosis of the liver, status post paracentesis with 12.3 L of fluid off Acute kidney injury secondary to cardiorenal syndrome improving with diuresis, being transition to oral torsemide Chronic kidney disease stage III Diabetes mellitus type 2 BPH on Flomax Urinary retention requiring indwelling Reed catheter Anemia iron deficiency as well as anemia of chronic disease Obesity with a BMI of 36.9 Noncompliance with medications and follow-up and treatment plan GI prophylaxis DVT prophylaxis Full code Discharge disposition Patient is being discharged in a stable condition with guarded prognosis to home. Patient will follow-up with Dr. Banuelos in the outpatient setting upon discharge. Patient is to continue with current medications and outpatient follow-up with nephrology as well as cardiology as scheduled. Total time taken is greater than 35 minutes. Hospital course This is a 58-year-old male who was recently admitted with CHF exacerbation with volume overload being followed by nephrology along with cardiology. Patient maintained on IV diuresis has transition to torsemide per nephrology and will follow-up outpatient. Patient also with significant ascites secondary to cirrhosis of the liver underwent paracentesis with approximately 12 L removed. Patient to follow-up with GI outpatient as well. On admission patient displaying suicidal ideations and was evaluated by psychiatry not qualifying for inpatient rehab. Patient has been cleared for outpatient follow-up with [facility]. Please refer to other consultation notes for further HPI. Currently no reports of chest pain, shortness of breath, or palpitations. Patient is afebrile. No reports of nausea or vomiting and patient is tolerating diet. Patient will be discharged home today. Guarded prognosis and high risk for readmissions given patient significant comorbidities and noncompliance to medications and follow-up Physical exam: Gen: This is a 58-year-old male who is awake, alert and oriented x 3, well- developed, pale, elderly appearing, obese HEENT: Head is atraumatic, normocephalic. Pupils equal, round. Sclerae is anicteric. NECK: Supple. No JVD. No lymphadenopathy. No thyromegaly. LUNGS: Diminished breath sounds bilaterally otherwise clear to auscultation. No wheezes or rhonchi. No intercostal retractions. HEART: S1, S2 are muffled ABDOMEN: Soft. Distended although less taut. Bowel sounds are present. No masses. No tenderness. EXTREMITIES: No pedal edema. No calf tenderness. NEUROLOGICAL: Patient is awake, alert and oriented x3. Cranial nerves 2 through 12 are grossly intact. Please refer to medication reconciliation sheet for a list of medications. The impression and plan of care has been dictated by Yandy Martínez, Nurse Practitioner as directed. Dr. Tl MD I have performed a history and examination and MDM of this patient, discussed the same with the dictator, and agree with the dictator's assessment and plan as written ,documented as a scribe. Based on total visit time, I have performed more than 50% of the visit. Patient Condition at Discharge: Fair Plan - Discharge Summary Discharge Rx Participant: Yes New Discharge Prescriptions: New Darbepoetin Severiano [Aranesp] 60 mcg SQ Q7D 30 Days #4 each Aspirin 81 mg PO DAILY #30 tab Potassium Chloride ER [K-Dur 10] 10 meq PO DAILY #30 tab Torsemide [Demadex] 40 mg PO DAILY #60 tab Dapagliflozin Propanediol [Farxiga] 5 mg PO DAILY #30 tab Continue Mupirocin 2% Oint [Bactroban 2% Oint] 1 applic TOPICAL TID DULoxetine HCL [Cymbalta] 60 mg PO DAILY Midodrine [ProAmatine] 5 mg PO AC-TID carvediloL [Coreg] 3.125 mg PO BID-W/MEALS #60 tab Isosorbide Mononitrate ER [Imdur] 15 mg PO DAILY Albuterol Inhaler [Ventolin Hfa Inhaler] 2 puff INHALATION RT-Q6H PRN PRN Reason: Shortness Of Breath Simvastatin [Zocor] 20 mg PO HS Tamsulosin [Flomax] 0.4 mg PO DAILY Discontinued Spironolactone [Aldactone] 25 mg PO DAILY #30 tab Dapagliflozin Propanediol [Farxiga] 10 mg PO DAILY #30 tab Aspirin EC [Ecotrin] 325 mg PO DAILY Furosemide [Lasix] 80 mg PO BID Discharge Medication List carvediloL [Coreg] 3.125 mg PO BID-W/MEALS #60 tab 01/30/24 [Rx] Albuterol Inhaler [Ventolin Hfa Inhaler] 2 puff INHALATION RT-Q6H PRN 05/17/24 [History] DULoxetine HCL [Cymbalta] 60 mg PO DAILY 05/17/24 [History] Isosorbide Mononitrate ER [Imdur] 15 mg PO DAILY 05/17/24 [History] Midodrine [ProAmatine] 5 mg PO AC-TID 05/17/24 [History] Mupirocin 2% Oint [Bactroban 2% Oint] 1 applic TOPICAL TID 05/17/24 [History] Simvastatin [Zocor] 20 mg PO HS 05/17/24 [History] Tamsulosin [Flomax] 0.4 mg PO DAILY 05/17/24 [History] Aspirin 81 mg PO DAILY #30 tab 05/25/24 [Rx] Dapagliflozin Propanediol [Farxiga] 5 mg PO DAILY #30 tab 05/25/24 [Rx] Darbepoetin Severiano [Aranesp] 60 mcg SQ Q7D 30 Days #4 each 05/25/24 [Rx] Potassium Chloride ER [K-Dur 10] 10 meq PO DAILY #30 tab 05/25/24 [Rx] Torsemide [Demadex] 40 mg PO DAILY #60 tab 05/25/24 [Rx] Follow up Appointment(s)/Referral(s): Patricio Banuelos DO [Primary Care Provider] - 1-2 days Dayne Rios MD [STAFF PHYSICIAN] - 1 Week Sami Coleman DO [STAFF PHYSICIAN] - 1 Week Patient Instructions/Handouts: Heart Failure (DC), Ascites (DC) Discharge/Stand Alone Forms: Who Do I Call?, Community Resources, Outpatient Counseling Discharge Disposition: HOME SELF-CARE
== END 2024-05-25 14:46 | disposition home or self-care (01) | DRG 194 ==
LOC: EC 13:44 → 3SCARD 17:23 → 3NCARDOBS 05-19 14:10 → 3SCARD 05-19 14:10 → 3NCARDOBS 05-21 10:45 → 3SCARD 05-21 10:45
PROVIDERS: ADMIT Hospitalist; ATTEND Hospitalist
PROC: 0W9G3ZZ Drainage of Peritoneal Cavity, Percutaneous Approach (ICD-10-PCS; principal; 2024-05-20)
DX: I13.0 Hypertensive heart and chronic kidney disease with heart failure and stage 1 through stage 4 chronic kidney disease, or unspecified chronic kidney disease (principal); N17.0 Acute kidney failure with tubular necrosis; I27.20 Pulmonary hypertension, unspecified; E11.22 Type 2 diabetes mellitus with diabetic chronic kidney disease; K74.60 Unspecified cirrhosis of liver; I50.23 Acute on chronic systolic (congestive) heart failure; N18.31 Chronic kidney disease, stage 3a; Z68.41 Body mass index [BMI] 40.0-44.9, adult; Z89.411 Acquired absence of right great toe; Z89.421 Acquired absence of other right toe(s); J91.8 Pleural effusion in other conditions classified elsewhere; R18.8 Other ascites; R45.851 Suicidal ideations; D63.1 Anemia in chronic kidney disease; I25.82 Chronic total occlusion of coronary artery; E66.9 Obesity, unspecified; D50.9 Iron deficiency anemia, unspecified; F32.9 Major depressive disorder, single episode, unspecified; I08.1 Rheumatic disorders of both mitral and tricuspid valves; I25.5 Ischemic cardiomyopathy; N40.1 Benign prostatic hyperplasia with lower urinary tract symptoms; F17.290 Nicotine dependence, other tobacco product, uncomplicated; R33.8 Other retention of urine; Z91.148 Patient's other noncompliance with medication regimen for other reason; Z91.198 Patient's noncompliance with other medical treatment and regimen for other reason; I25.10 Atherosclerotic heart disease of native coronary artery without angina pectoris; E78.5 Hyperlipidemia, unspecified; F41.9 Anxiety disorder, unspecified; Z79.82 Long term (current) use of aspirin; Z79.84 Long term (current) use of oral hypoglycemic drugs; Z79.899 Other long term (current) drug therapy
CPT/HCPCS: 36415; 49083; 51702; 71046; 76705; 80048; 80053; 80074; 81001; 82150; 82728; 82945; 83540; 83550; 83605; 83735; 83880; 84157; 84484; 85025; 85610; 85730; 87070; 87075; 87205; 93005; 93306; 94760; 96374; 99285

== ENCOUNTER 2024-06-01 10:31 | Observation (INO) | payer OTHER ==
--- NOTE | 2024-06-01 11:12 | ED ---
SOB HPI - General Chief Complaint: Shortness of Breath Stated Complaint: SOB, CHF exa Time Seen by Provider: 06/01/24 10:51 Source: patient, EMS, RN notes reviewed Mode of arrival: EMS Limitations: no limitations - History of Present Illness Initial Comments: 58-year-old male with past medical history of congestive heart failure, diabetes mellitus, hypertension, renal disease, and cirrhosis presenting to the ER with fluid overload x 1 day. Patient states he was recently hospitalized for ascites and CHF exacerbation and discharged 1 week ago. Patient states he received some bad news yesterday and binged on sugar and salty foods, causing his abdomen to become fluid overloaded as well as his legs. He states he is short of breath with exertion but not at rest. Patient reports he takes his Trulicity once weekly but does not know how to use his insulin pens and does not administer insulin daily. - Related Data Home Medications Medication Instructions Recorded Confirmed Albuterol Inhaler [Ventolin Hfa 2 puff INHALATION RT-Q6H PRN 05/17/24 06/01/24 Inhaler] DULoxetine HCL [Cymbalta] 60 mg PO DAILY 05/17/24 06/01/24 Isosorbide Mononitrate ER [Imdur] 15 mg PO DAILY 05/17/24 06/01/24 Midodrine [ProAmatine] 5 mg PO AC-TID 05/17/24 06/01/24 Mupirocin 2% Oint [Bactroban 2% 1 applic TOPICAL TID 05/17/24 06/01/24 Oint] Simvastatin [Zocor] 20 mg PO HS 05/17/24 06/01/24 Tamsulosin [Flomax] 0.4 mg PO DAILY 05/17/24 06/01/24 Dulaglutide [Trulicity] 1.5 mg SQ SA 06/01/24 06/01/24 Previous Rx's Medication Instructions Recorded carvediloL [Coreg] 3.125 mg PO BID-W/MEALS #60 tab 01/30/24 Aspirin 81 mg PO DAILY #30 tab 05/25/24 Dapagliflozin Propanediol [Farxiga] 5 mg PO DAILY #30 tab 05/25/24 Darbepoetin Severiano [Aranesp] 60 mcg SQ Q7D 30 Days #4 each 05/25/24 Potassium Chloride ER [K-Dur 10] 10 meq PO DAILY #30 tab 05/25/24 Torsemide [Demadex] 40 mg PO DAILY #60 tab 05/25/24 Allergies Allergy/AdvReac Type Severity Reaction Status Date / Time Penicillins Allergy Rash/Hives Verified 06/01/24 12:20 Sulfa (Sulfonamide Allergy Rash/Hives Verified 06/01/24 12:20 Antibiotics) indomethacin AdvReac cannot Verified 06/01/24 12:20 take with another prescribed med Review of Systems ROS Statement: Those systems with pertinent positive or pertinent negative responses have been documented in the HPI. ROS Other: All systems not noted in ROS Statement are negative. 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 Absent: scleral icterus, conjunctival injection, periorbital swelling Respiratory exam: Present: normal lung sounds bilaterally. Absent: respiratory distress, wheezes, rales, rhonchi, stridor Cardiovascular Exam: Present: regular rate, normal rhythm, normal heart sounds. Absent: systolic murmur, diastolic murmur, rubs, gallop, clicks GI/Abdominal exam: Present: soft, distended, normal bowel sounds, other (Ascites). Absent: tenderness, guarding, rebound, rigid Extremities exam: Present: normal inspection, full ROM, normal capillary refill, pedal edema (2+ edema bilaterally). Absent: tenderness, joint swelling, calf tenderness Neurological exam: Present: alert, oriented X3 Psychiatric exam: Present: normal affect, normal mood Skin exam: Present: warm, dry, intact, normal color. Absent: rash Course Vital Signs 06/01/24 06/01/24 06/01/24 10:35 12:02 12:05 Temperature 98.5 F Pulse Rate 87 83 Respiratory 20 18 18 Rate Blood Pressure 116/85 103/76 O2 Sat by Pulse 100 97 Oximetry 06/01/24 06/01/24 06/01/24 14:01 14:50 17:10 Temperature 98.8 F Pulse Rate 89 87 89 Respiratory 18 18 18 Rate Blood Pressure 118/85 118/85 129/92 O2 Sat by Pulse 100 99 97 Oximetry Medical Decision Making - Medical Decision Making Was pt. sent in by a medical professional or institution (, PA, CRIMINAL LAWYER, urgent care, hospital, or long term...) When possible be specific @ -No Did you speak to anyone other than the patient for history (EMS, parent, family, police, friend...)? What history was obtained from this source @ -No Did you review nursing and triage notes (agree or disagree)? Why? @ -I reviewed and agree with nursing and triage notes Were old charts reviewed (outside hosp., previous admission, EMS record, old EKG, old radiological studies, urgent care reports/EKG's, long term records)? Report findings @ -No old charts were reviewed Differential Diagnosis (chest pain, altered mental status, abdominal pain women, abdominal pain men, vaginal bleeding, weakness, fever, dyspnea, syncope, headac he, dizziness, GI bleed, back pain, seizure, CVA, palpatations, mental health, musculoskeletal)? @ -Differential Dyspnea: Coronary syndrome, arrhythmia, tamponade, asthma, COPD, pulmonary embolism, p neumonia, pneumothorax, pulmonary effusion, anaphylaxis, diabetic ketoacidosis, flailed chest, pulmonary contusion, diaphragmatic rupture, anemia, neuromuscular, this is not meant to be an all-inclusive list. EKG interpreted by me (3pts min.). @ -As above X-rays interpreted by me (1pt min.). @ -Chest x-ray revealed CHF with pulmonary vascular congestion, small to moderate right and small left pleural effusions with adjacent atelectasis and/or consolidation CT interpreted by me (1pt min.). @ -None done U/S interpreted by me (1pt. min.). @ -None done What testing was considered but not performed or refused? (CT, X-rays, U/S, labs)? Why? @ -None What meds were considered but not given or refused? Why? @ -None Did you discuss the management of the patient with other professionals (professionals i.e. , PA, CRIMINAL LAWYER, lab, RT, psych nurse, medical social worker, social studies department chair, teacher, senior loan officer, case folder)? Give summary @ -I spoke with Dr. Boothe for admission Was smoking cessation discussed for >3mins.? @ -No Was critical care preformed (if so, how long)? @ -No Were there social determinants of health that impacted care today? How? (Homelessness, low income, unemployed, alcoholism, drug addiction, transportation, low edu. Level, literacy, decrease access to med. care, residential, rehab)? @ -No Was there de-escalation of care discussed even if they declined (Discuss DNR or withdrawal of care, Hospice)? DNR status @ -No What co-morbidities impacted this encounter? (DM, HTN, Smoking, COPD, CAD, C ancer, CVA, ARF, Chemo, Hep., AIDS, mental health diagnosis, sleep apnea, morbid obesity)? @ -CHF, cirrhosis Was patient admitted / discharged? Hospital course, mention meds given and route, prescriptions, significant lab abnormalities, going to OR and other pertinent info. @ -Admitted. This is a 58-year-old male with past medical history of CHF, cirrhosis, hypertension, renal disease, and diabetes mellitus presenting to the ER with chief complaint of fluid overload x 1 day. Patient was recently hospitalized 1 week ago for CHF exacerbation and reports he ate a large amount of salty and sugary foods last night, causing him to become swollen in the abdomen and bilateral legs. He is also endorsing some shortness of breath with exertion. Vital signs unremarkable. Patient is afebrile at 98.5 F, blood pressure is 116/85, heart rate 87 bpm, respiratory rate 20, satting at 100% on 2 L of oxygen. No acute distress or signs of labored breathing. Ascites present on abdominal examination, 2+ pitting edema in bilateral lower extremities. EKG revealed normal sinus rhythm with no ST changes. Lab work including CBC, CMP, troponin, BNP remarkable for BNP 15,000 decreased from 23,000 from 1014. Creatinine 2.28 and BUN 44, comparable to baseline. Chest x-ray reveals congestive heart failure with pulmonary vascular congestion, small to moderate right and small left pleural effusions. Patient was given 60 mg IV Lasix. Case was discussed with Dr. Boothe for admission. Case discussed with my ED attending Dr. De. Undiagnosed new problem with uncertain prognosis? @ -No Drug Therapy requiring intensive monitoring for toxicity (Heparin, Nitro, Insulin, Cardizem)? @ -No Were any procedures done? @ -No Diagnosis/symptom? @ -CHF exacerbation Acute, or Chronic, or Acute on Chronic? @ -Acute Uncomplicated (without systemic symptoms) or Complicated (systemic symptoms)? @ -Complicated Side effects of treatment? @ -No Exacerbation, Progression, or Severe Exacerbation? @ -Exacerbation Poses a threat to life or bodily function? How? (Chest pain, USA, DC, pneumonia, PE, COPD, DKA, ARF, appy, cholecystitis, CVA, Diverticulitis, Homicidal, Suicidal, threat to staff... and all critical care pts) @ -Yes - Lab Data Result diagrams: 06/01/24 11:35 06/01/24 11:35 Lab Results 06/01/24 06/01/24 06/01/24 Range/Units 11:35 11:35 11:35 WBC 3.7 L (3.8-10.6) k/uL RBC 2.97 L (4.30-5.90) m/uL Hgb 9.0 L (13.0-17.5) gm/dL Hct 28.1 L (39.0-53.0) % MCV 94.4 (80.0-100.0) fL MCH 30.2 (25.0-35.0) pg MCHC 32.0 (31.0-37.0) g/dL RDW 15.1 (11.5-15.5) % Plt Count 150 (150-450) k/uL MPV 7.2 Neutrophils % 70 % Lymphocytes % 13 % Monocytes % 9 % Eosinophils % 4 % Basophils % 1 % Neutrophils # 2.6 (1.3-7.7) k/uL Lymphocytes # 0.5 L (1.0-4.8) k/uL Monocytes # 0.3 (0-1.0) k/uL Eosinophils # 0.1 (0-0.7) k/uL Basophils # 0.0 (0-0.2) k/uL Hypochromasia Moderate PT 11.5 (10.0-12.5) sec INR 1.1 (<1.2) APTT 27.4 (22.0-30.0) sec Sodium 136 L (137-145) mmol/L Potassium 4.2 (3.5-5.1) mmol/L Chloride 99 (98-107) mmol/L Carbon Dioxide 30 (22-30) mmol/L Anion Gap 7 mmol/L BUN 44 H (9-20) mg/dL Creatinine 2.28 H (0.66-1.25) mg/dL Est GFR (CKD-EPI)AfAm 36 (>60 ml/min/1.73 sqM) Est GFR (CKD-EPI)NonAf 31 (>60 ml/min/1.73 sqM) Glucose 91 (74-99) mg/dL Calcium 8.4 (8.4-10.2) mg/dL Total Bilirubin 1.6 H (0.2-1.3) mg/dL AST 33 (17-59) U/L ALT 13 (4-49) U/L Alkaline Phosphatase 151 H (38-126) U/L Troponin I (0.000-0.034) ng/mL NT-Pro-B Natriuret Pep 44074 pg/mL Total Protein 6.9 (6.3-8.2) g/dL Albumin 3.3 L (3.5-5.0) g/dL 06/01/24 Range/Units 11:35 WBC (3.8-10.6) k/uL RBC (4.30-5.90) m/uL Hgb (13.0-17.5) gm/dL Hct (39.0-53.0) % MCV (80.0-100.0) fL MCH (25.0-35.0) pg MCHC (31.0-37.0) g/dL RDW (11.5-15.5) % Plt Count (150-450) k/uL MPV Neutrophils % % Lymphocytes % % Monocytes % % Eosinophils % % Basophils % % Neutrophils # (1.3-7.7) k/uL Lymphocytes # (1.0-4.8) k/uL Monocytes # (0-1.0) k/uL Eosinophils # (0-0.7) k/uL Basophils # (0-0.2) k/uL Hypochromasia PT (10.0-12.5) sec INR (<1.2) APTT (22.0-30.0) sec Sodium (137-145) mmol/L Potassium (3.5-5.1) mmol/L Chloride (98-107) mmol/L Carbon Dioxide (22-30) mmol/L Anion Gap mmol/L BUN (9-20) mg/dL Creatinine (0.66-1.25) mg/dL Est GFR (CKD-EPI)AfAm (>60 ml/min/1.73 sqM) Est GFR (CKD-EPI)NonAf (>60 ml/min/1.73 sqM) Glucose (74-99) mg/dL Calcium (8.4-10.2) mg/dL Total Bilirubin (0.2-1.3) mg/dL AST (17-59) U/L ALT (4-49) U/L Alkaline Phosphatase (38-126) U/L Troponin I <0.012 (0.000-0.034) ng/mL NT-Pro-B Natriuret Pep pg/mL Total Protein (6.3-8.2) g/dL Albumin (3.5-5.0) g/dL - EKG Data -: EKG Interpreted by Me EKG Comments: EKG reveals normal sinus rhythm with first degree A-V block and low QRS voltage in precordial leads, ventricular rate 83 bpm, MS interval 217, QRS duration 119, QT/QTc 414/454 Disposition Clinical Impression: Acute exacerbation of congestive heart failure Disposition: ADMITTED IP TO THIS [facility] Time of Disposition: 13:26
[2024-06-01 11:42] LABS: Basophils % (A) 1 %; Eosinophils # (A) 0.1 k/uL (0-0.7); Eosinophils % (A) 4 %; HCT 28.1 % (39.0-53.0); Hypochromasia Moderate; Lymphocytes # (A) 0.5 k/uL (1.0-4.8); Lymphocytes % (A) 13 %; MCH 30.2 pg (25.0-35.0); MCV 94.4 fL (80.0-100.0); Mean Platelet Volume 7.2; Monocytes # (A) 0.3 k/uL (0-1.0); Monocytes % (A) 9 %; Neutrophils # (A) 2.6 k/uL (1.3-7.7); Neutrophils % (A) 70 %; Platelet Count 150 k/uL (150-450); RBC 2.97 m/uL (4.30-5.90); RDW 15.1 % (11.5-15.5); WBC 3.7 k/uL (3.8-10.6)
[2024-06-01 11:53] LABS: ALT 13 U/L (4-49); AST 33 U/L (17-59); African American GFR (CKD) 36 (>60 ml/min/1.73 sqM); Albumin 3.3 g/dL (3.5-5.0); Alkaline Phosphatase 151 U/L (38-126); Anion Gap 7 mmol/L; Blood Urea Nitrogen 44 mg/dL (9-20); Calcium 8.4 mg/dL (8.4-10.2); Carbon Dioxide 30 mmol/L (22-30); Chloride 99 mmol/L (98-107); Glucose 91 mg/dL (74-99); Non-African American GFR(CKD) 31 (>60 ml/min/1.73 sqM); Potassium 4.2 mmol/L (3.5-5.1); Sodium 136 mmol/L (137-145); Total Bilirubin 1.6 mg/dL (0.2-1.3); Total Protein 6.9 g/dL (6.3-8.2)
[2024-06-01 12:01] LABS: NT-Pro-B-Type Natriuretic Pept 15100 pg/mL
[2024-06-01 12:04] LABS: INR 1.1 (<1.2); Partial Thromboplastin Time 27.4 sec (22.0-30.0); Prothrombin Time 11.5 sec (10.0-12.5)
--- NOTE | 2024-06-01 12:35 | XR ---
EXAMINATION TYPE: XR chest 2V DATE OF EXAM: 06/01/2024 COMPARISON: 05/17/2024 HISTORY: 58-year-old male with fluid overload, shortness of breath TECHNIQUE: PA and lateral views FINDINGS: Heart borderline in size. Diffuse interstitial densities. Small to moderate right and small left pleu ral effusions. Patchy opacity right lower lung. Findings similar to slightly worsened from 05/17/2024 . IMPRESSION: CHF with pulmonary vascular congestion. Small to moderate right and small left pleural effusions with adjacent atelectasis and/or consolidation. [facility], , 06/01/2024 12:32 PM
[2024-06-01] MEDS ORDERED: ALBUTEROL NEBULIZED 2.5 MG/3 ML INHALATION PRN (13:25)
--- NOTE | 2024-06-01 13:34 | P.HPIM ---
History of Present Illness 58-year-old came in because he believes he is fluid overloaded along with shortness of breath orthopnea. Patient has history of congestive heart failure EF of around 2025% along with alcoholic cirrhosis. Patient was recently discharged from the hospital patient uses 40 mg of torsemide patient had a paracentesis at that time and was subsequently discharged on 40 mg of torsemide. Patient has not been compliant with diet and patient has been eating salty and sugary foods since his discharge. Patient does not have any pitting pedal edema but does have chronic edema of bilateral lower extremities with elevated JVD and pulmonary edema on the chest x-ray.patient's present BNP is 15,000 and patient had a previous BNP of 21,000 when he had his CHF exacerbation REVIEW OF SYSTEMS: All other systems are negative except those mentioned in the HPI PHYSICAL EXAMINATION: GENERAL: The patient is alert and oriented x3, not in any acute distress. Well developed, well nourished. HEENT: Pupils are round and equally reacting to light. EOMI. No scleral icterus. No conjunctival pallor. Normocephalic, atraumatic. No pharyngeal erythema. No thyromegaly. CARDIOVASCULAR: S1 and S2 present. No murmurs, rubs, or gallops. PULMONARY: Chest is clear to auscultation, no wheezing or crackles. ABDOMEN: Soft, nontender, nondistended, normoactive bowel sounds. No palpable organomegaly. MUSCULOSKELETAL: No joint swelling or deformity. EXTREMITIES: No cyanosis, clubbing,Chronic nonpitting edema bilateral lower extremities NEUROLOGICAL: Gross neurological examination did not reveal any focal deficits. SKIN: No rashes. Assessment and plan Secondary to congestive heart failure as well as cirrhosis patient was started on 60 mg IV twice daily of Lasix with nephrology consultation will also order paracentesis at this time -Alcoholic cirrhosis patient stopped drinking many many years ago Acute kidney injury on chronic kidney disease stage V chronic kidney disease is secondary to hepatorenal and cardiorenal syndromes -Benign prostatic hypertrophy -Iron deficiency anemia and anemia of chronic kidney disease and secondary to cirrhosis which is anemia of chronic disease -Type 2 diabetes mellitus patient was resumed on home regimen along with sliding scale insulin DVT prophylaxis:-Extensive volume overload 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 Past Anesthesia/Blood Transfusion Reactions: No Reported Reaction Past Psychological History: Anxiety, Depression Smoking Status: Vaper Past Alcohol Use History: None Reported, Occasional Past Drug Use History: Marijuana Medications and Allergies Home Medications Medication Instructions Recorded Confirmed Type carvediloL [Coreg] 3.125 mg PO BID-W/MEALS #60 tab 01/30/24 06/01/24 Rx Albuterol Inhaler [Ventolin Hfa 2 puff INHALATION RT-Q6H PRN 05/17/24 06/01/24 History Inhaler] DULoxetine HCL [Cymbalta] 60 mg PO DAILY 05/17/24 06/01/24 History Isosorbide Mononitrate ER [Imdur] 15 mg PO DAILY 05/17/24 06/01/24 History Midodrine [ProAmatine] 5 mg PO AC-TID 05/17/24 06/01/24 History Mupirocin 2% Oint [Bactroban 2% 1 applic TOPICAL TID 05/17/24 06/01/24 History Oint] Simvastatin [Zocor] 20 mg PO HS 05/17/24 06/01/24 History Tamsulosin [Flomax] 0.4 mg PO DAILY 05/17/24 06/01/24 History Aspirin 81 mg PO DAILY #30 tab 05/25/24 06/01/24 Rx Dapagliflozin Propanediol [Farxiga] 5 mg PO DAILY #30 tab 05/25/24 06/01/24 Rx Darbepoetin Severiano [Aranesp] 60 mcg SQ Q7D 30 Days #4 each 05/25/24 06/01/24 Rx Potassium Chloride ER [K-Dur 10] 10 meq PO DAILY #30 tab 05/25/24 06/01/24 Rx Torsemide [Demadex] 40 mg PO DAILY #60 tab 05/25/24 06/01/24 Rx Dulaglutide [Trulicity] 1.5 mg SQ SA 06/01/24 06/01/24 History Allergies Allergy/AdvReac Type Severity Reaction Status Date / Time Penicillins Allergy Rash/Hives Verified 06/01/24 12:20 Sulfa (Sulfonamide Allergy Rash/Hives Verified 06/01/24 12:20 Antibiotics) indomethacin AdvReac cannot Verified 06/01/24 12:20 take with another prescribed med Physical Exam Vitals: Vital Signs Temp Pulse Resp BP Pulse Ox 06/01/24 12:05 18 06/01/24 12:02 83 18 103/76 97 06/01/24 10:35 98.5 F 87 20 116/85 100 Intake and Output 05/31/24 06/01/24 06/01/24 22:59 06:59 14:59 Other: Weight 107.774 kg Results CBC & Chem 7: 06/01/24 11:35 06/01/24 11:35 Labs: Abnormal Lab Results - Last 24 Hours (Table) 06/01/24 06/01/24 Range/Units 11:35 11:35 WBC 3.7 L (3.8-10.6) k/uL RBC 2.97 L (4.30-5.90) m/uL Hgb 9.0 L (13.0-17.5) gm/dL Hct 28.1 L (39.0-53.0) % Lymphocytes # 0.5 L (1.0-4.8) k/uL Sodium 136 L (137-145) mmol/L BUN 44 H (9-20) mg/dL Creatinine 2.28 H (0.66-1.25) mg/dL Total Bilirubin 1.6 H (0.2-1.3) mg/dL Alkaline Phosphatase 151 H (38-126) U/L Albumin 3.3 L (3.5-5.0) g/dL
[2024-06-01] MEDS: FUROSEMIDE 10 MG/ML 10 ML VIAL IV SCH (14:52)
[2024-06-01] MEDS: carvediloL 3.125 MG TAB PO SCH (17:11)
[2024-06-01] MEDS: DARBEPOETIN ALFA 60 MCG/0.3 ML SYRINGE SQ SCH (17:11)
[2024-06-01] MEDS: MUPIROCIN 2% OINT 22 GM TUBE TOPICAL SCH (19:34)
[2024-06-01 20:50] LABS: Glucose,Whole Blood 110 mg/dL (70-110)
[2024-06-01] MEDS: ATORVASTATIN 10 MG TAB PO SCH (21:10)
[2024-06-02 06:14] LABS: Glucose,Whole Blood 105 mg/dL (70-110)
[2024-06-02 08:30] LABS: ALT 11 U/L (10-49); AST 27 U/L (14-35); Albumin 3.4 g/dL (3.8-4.9); Albumin/Globulin Ratio 1.03 Ratio (1.60-3.17); Alkaline Phosphatase 181 U/L (41-126); BUN/Creat Ratio 16.88 Ratio (12.00-20.00); Blood Urea Nitrogen 40.5 mg/dL (9.0-27.0); Calcium 8.6 mg/dL (8.7-10.3); Carbon Dioxide 26.7 mmol/L (21.6-31.8); Chloride 98 mmol/L (96-109); Globulin 3.3 g/dL (1.6-3.3); Glucose 122 mg/dL (70-110); Magnesium 2.4 mg/dL (1.5-2.4); Potassium 4.3 mmol/L (3.5-5.5); Sodium 135 mmol/L (135-145); Total Bilirubin 1.6 mg/dL (0.3-1.2); Total Protein 6.7 g/dL (6.2-8.2)
[2024-06-02] MEDS: DULoxetine HCL 60 MG CAPSULE.DR PO SCH (10:21)
[2024-06-02] MEDS: ISOSORBIDE MONONITRATE ER 15 MG TAB PO SCH (10:21)
[2024-06-02] MEDS: TAMSULOSIN 0.4 MG CAP.ER.24H PO SCH (10:21)
[2024-06-02] MEDS: ASPIRIN 81 MG PO SCH (10:21)
[2024-06-02] MEDS: DAPAGLIFLOZIN PROPANEDIOL 5 MG TABLET PO SCH (10:21)
--- NOTE | 2024-06-02 10:25 | US ---
EXAMINATION TYPE: US paracentesis abd w/image DATE OF EXAM: 06/02/2024 9:11 AM COMPARISON: prior paracentesis. CLINICAL INDICATION:Male, 58 years old with history of Therapeutic paracentesis; , ascites ATTENDING: Dr. Antolin Vladovinos PROCEDURE: Informed consent was obtained. The risks of the procedure were extensively explained incl uding risk of damage to surrounding bowel with perforation and need for additional procedures. Proced ure was performed in the ultrasound procedure suite. Ultrasound imaging of the abdomen demonstrate as citic fluid. An appropriate access site was localized to the right lower abdomen. Timeout was taken p er protocol. The skin was prepped and draped in the usual sterile fashion and then locally anesthetiz ed with 1% lidocaine. The peritoneal cavity was then accessed via a 5-Tajik one-step needle/cathete r. Approximately 7300 cc of clear straw-colored fluid was obtained. Postprocedural imaging of the ab domen demonstrate a minimal amount of abdominal fluid. Patient tolerated procedure well without immediate complication. Hemostasis at the procedural site w as obtained with a sterile bandage placed. The patient was monitored in the holding area following th e procedure and was subsequently discharged in stable condition. IMPRESSION: Ultrasound guided paracentesis, with approximately 7300 cc of clear straw-colored fluid drained. Path ology results pending. No immediate complications were evident. [facility], , 06/02/2024 10:23 AM
[2024-06-02 12:23] LABS: Glucose,Whole Blood 115 mg/dL (70-110)
--- NOTE | 2024-06-02 13:42 | P.NPCON ---
History of Present Illness - Reason for Consult acute renal failure - History of Present Illness patient is a 58-year-old male with history of CHF with EF of 15-20%, hypertension, alcoholic liver disease,type 2 diabetes and chronic kidney disease stage III with baseline creatinine around 2 mg/dL. Patient was recently discharged from the hospital on after hospitalization for volume overload and CHF exacerbation. Patient states that he recently had large intake of salt-containing foods and developed significant shortness of breath and abdominal distention. Leg swelling had also increased significantly. Status post paracentesis of 7.3 L today. Patient is scheduled for weekly paracentesis. Serum creatinine 2.4 mg/dL today. Maintained on IV Lasix. Patient states he is feeling better. O2 sats 98% on room air 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 Past Anesthesia/Blood Transfusion Reactions: No Reported Reaction Past Psychological History: Anxiety, Depression Smoking Status: Vaper Past Alcohol Use History: None Reported, Occasional Past Drug Use History: Marijuana Medications and Allergies Home Medications Medication Instructions Recorded Confirmed Type carvediloL [Coreg] 3.125 mg PO BID-W/MEALS #60 tab 01/30/24 06/01/24 Rx Albuterol Inhaler [Ventolin Hfa 2 puff INHALATION RT-Q6H PRN 05/17/24 06/01/24 History Inhaler] DULoxetine HCL [Cymbalta] 60 mg PO DAILY 05/17/24 06/01/24 History Isosorbide Mononitrate ER [Imdur] 15 mg PO DAILY 05/17/24 06/01/24 History Midodrine [ProAmatine] 5 mg PO AC-TID 05/17/24 06/01/24 History Mupirocin 2% Oint [Bactroban 2% 1 applic TOPICAL TID 05/17/24 06/01/24 History Oint] Simvastatin [Zocor] 20 mg PO HS 05/17/24 06/01/24 History Tamsulosin [Flomax] 0.4 mg PO DAILY 05/17/24 06/01/24 History Aspirin 81 mg PO DAILY #30 tab 05/25/24 06/01/24 Rx Dapagliflozin Propanediol [Farxiga] 5 mg PO DAILY #30 tab 05/25/24 06/01/24 Rx Darbepoetin Severiano [Aranesp] 60 mcg SQ Q7D 30 Days #4 each 05/25/24 06/01/24 Rx Potassium Chloride ER [K-Dur 10] 10 meq PO DAILY #30 tab 05/25/24 06/01/24 Rx Torsemide [Demadex] 40 mg PO DAILY #60 tab 05/25/24 06/01/24 Rx Dulaglutide [Trulicity] 1.5 mg SQ SA 06/01/24 06/01/24 History Allergies Allergy/AdvReac Type Severity Reaction Status Date / Time Penicillins Allergy Rash/Hives Verified 06/01/24 12:20 Sulfa (Sulfonamide Allergy Rash/Hives Verified 06/01/24 12:20 Antibiotics) indomethacin AdvReac cannot Verified 06/01/24 12:20 take with another prescribed med Physical Exam Vitals: Vital Signs Temp Pulse Pulse Resp BP BP Pulse Ox 06/02/24 10:00 92 18 102/74 98 06/02/24 09:35 100 18 110/76 100 06/02/24 09:15 86 18 109/69 99 06/02/24 07:00 98.4 F 83 16 118/77 93 L 06/02/24 06:49 86 111/77 100 06/02/24 02:25 97.9 F 86 16 114/81 100 06/02/24 02:00 84 06/01/24 21:10 84 06/01/24 18:38 16 06/01/24 17:58 97.5 F L 84 18 110/71 100 06/01/24 17:10 98.8 F 89 18 129/92 97 06/01/24 14:50 87 18 118/85 99 06/01/24 14:01 89 18 118/85 100 Intake and Output 06/01/24 06/02/24 06/02/24 22:59 06:59 14:59 Other: # Voids 2 1 Weight 113.3 kg patient is awake, comfortable, alert oriented 3 No acute distress Examination of the heart S1 and S2 Examination of the lungs bilateral breath sounds are heard with basal crackles Abdomen is soft nontender, ascites noted Examination of lower extremities shows edema 1+ bilaterally Results - Lab Results Most recent lab results Calcium 8.6 mg/dL (8.7-10.3) L 06/02/24 04:28 Phosphorus 4.6 mg/dL (2.5-4.5) H 06/01/24 13:57 Magnesium 2.4 mg/dL (1.5-2.4) 06/02/24 04:28 06/01/24 11:35 06/02/24 04:28 Assessment and Plan Assessment: 1. Chronic kidney disease stage IIIb with baseline creatinine around 2 mg/dL secondary to diabetic kidney disease and nephrosclerosis 2. Volume overload 3. Acute kidney injury, cardiorenal 4. Alcoholic liver disease with portal hypertension and recurrent ascites scheduled for weekly paracentesis. 5. Cardiomyopathy with EF of 15-20% 6. CHF acute on chronic with decreased ejection fraction Plan: continue with IV Lasix. Repeat labs in a.m. Discussed salt and fluid restriction
--- NOTE | 2024-06-02 16:35 | P.PN ---
Subjective Progress Note Date: 06/02/24 Hospital course: 58-year-old came in because he believes he is fluid overloaded along with shortness of breath orthopnea. Patient has history of congestive heart failure EF of around 5% along with alcoholic cirrhosis. Patient was recently discharged from the hospital patient uses 40 mg of torsemide patient had a paracentesis at that time and was subsequently discharged on 40 mg of torsemide. Patient has not been compliant with diet and patient has been eating salty and sugary foods since his discharge. Patient does not have any pitting pedal edema but does have chronic edema of bilateral lower extremities with elevated JVD and pulmonary edema on the chest x-ray.patient's present BNP is 15,000 and patient had a previous BNP of 21,000 when he had his CHF exacerbation 06/02/2024: Patient seen at bedside. No acute events overnight. No current complaints. Was seen after paracentesis. Patient states he feels better. REVIEW OF SYSTEMS: All other systems are negative except those mentioned in the HPI PHYSICAL EXAMINATION: GENERAL: The patient is alert and oriented x3, not in any acute distress. Well developed, well nourished. HEENT: Pupils are round and equally reacting to light. EOMI. No scleral icterus. No conjunctival pallor. Normocephalic, atraumatic. No pharyngeal erythema. No thyromegaly. CARDIOVASCULAR: S1 and S2 present. No murmurs, rubs, or gallops. PULMONARY: Chest is clear to auscultation, no wheezing or crackles. ABDOMEN: Soft, nontender, nondistended, normoactive bowel sounds. No palpable organomegaly. MUSCULOSKELETAL: No joint swelling or deformity. EXTREMITIES: No cyanosis, clubbing,Chronic nonpitting edema bilateral lower e xtremities NEUROLOGICAL: Gross neurological examination did not reveal any focal deficits. SKIN: No rashes. Assessment and plan Secondary to congestive heart failure as well as cirrhosis patient was started on 60 mg IV twice daily of Lasix with nephrology consultation will also order paracentesis at this time -Alcoholic cirrhosis patient stopped drinking many many years ago Acute kidney injury on chronic kidney disease stage V chronic kidney disease is secondary to hepatorenal and cardiorenal syndromes -Benign prostatic hypertrophy -Iron deficiency anemia and anemia of chronic kidney disease and secondary to cirrhosis which is anemia of chronic disease -Type 2 diabetes mellitus patient was resumed on home regimen along with sliding scale insulin DVT prophylaxis:-Extensive volume overload Nephrology note reviewed, continue with IV Lasix repeat labs in the a.m. potential discharge tomorrow Objective - Vital Signs Vital signs: Vital Signs Temp 97.9 F 06/02/24 14:53 Pulse 63 06/02/24 14:53 Resp 16 06/02/24 14:53 BP 97/61 06/02/24 14:53 Pulse Ox 97 06/02/24 14:53 FiO2 Intake & Output 06/01/24 06/02/24 06/02/24 18:59 06:59 18:59 Intake Total 118 Balance 118 Weight 107.774 kg 113.3 kg Intake: Oral 118 Other: # Voids 1 3 - Labs CBC & Chem 7: 06/01/24 11:35 06/02/24 04:28 Labs: Abnormal Lab Results - Last 24 Hours (Table) 06/02/24 06/02/24 Range/Units 04:28 12:21 BUN 40.5 H (9.0-27.0) mg/dL Creatinine 2.4 H (0.6-1.5) mg/dL Est GFR (CKD-EPI) 31 L (>=60) Glucose 122 H (70-110) mg/dL POC Glucose (mg/dL) 115 H (70-110) mg/dL Calcium 8.6 L (8.7-10.3) mg/dL Total Bilirubin 1.6 H (0.3-1.2) mg/dL Alkaline Phosphatase 181 H (41-126) U/L Albumin 3.4 L (3.8-4.9) g/dL Albumin/Globulin Ratio 1.03 L (1.60-3.17) Ratio
[2024-06-02 17:17] LABS: Glucose,Whole Blood 110 mg/dL (70-110)
[2024-06-02 20:36] LABS: Glucose,Whole Blood 177 mg/dL (70-110)
[2024-06-03 06:07] LABS: Glucose,Whole Blood 119 mg/dL (70-110)
[2024-06-03 07:51] VITALS: BP 114/72; PULSE 87; RESP 17; TEMP 97.9
[2024-06-03 08:07] LABS: African American GFR (CKD) 33 (>60 ml/min/1.73 sqM); Anion Gap 2 mmol/L; Blood Urea Nitrogen 44 mg/dL (9-20); Carbon Dioxide 33 mmol/L (22-30); Chloride 102 mmol/L (98-107); Glucose 127 mg/dL (74-99); Magnesium 2.4 mg/dL (1.6-2.3); Non-African American GFR(CKD) 29 (>60 ml/min/1.73 sqM); Potassium 3.8 mmol/L (3.5-5.1); Sodium 137 mmol/L (137-145)
[2024-06-03 12:24] LABS: Glucose,Whole Blood 129 mg/dL (70-110)
--- NOTE | 2024-06-03 12:45 | P.PN ---
Subjective patient is seen for follow-up for acute kidney injury and chronic kidney disease. No significant complaints today. Serum creatinine staying at about 2.4. Objective - Vital Signs Vital signs: Vital Signs Temp 97.9 F 06/03/24 07:10 Pulse 87 06/03/24 07:10 Resp 17 06/03/24 07:10 BP 114/72 06/03/24 07:10 Pulse Ox 100 06/03/24 07:10 FiO2 Intake & Output 06/02/24 06/03/24 06/03/24 18:59 06:59 18:59 Intake Total 236 350 Balance 236 350 Weight 47.627 kg Intake: Oral 236 350 Other: # Voids 3 2 - Exam patient is awake, comfortable, alert oriented 3 No acute distress Examination of the heart S1 and S2 Examination of the lungs bilateral breath sounds are heard with basal crackles Abdomen is soft nontender, ascites noted Examination of lower extremities shows edema 1+ bilaterally - Labs CBC & Chem 7: 06/01/24 11:35 06/03/24 07:38 Labs: Abnormal Lab Results - Last 24 Hours (Table) 06/02/24 06/03/24 06/03/24 Range/Units 20:35 06:06 07:38 Carbon Dioxide 33 H (22-30) mmol/L BUN 44 H (9-20) mg/dL Creatinine 2.41 H (0.66-1.25) mg/dL Glucose 127 H (74-99) mg/dL POC Glucose (mg/dL) 177 H 119 H (70-110) mg/dL Calcium 8.0 L (8.4-10.2) mg/dL Magnesium 2.4 H (1.6-2.3) mg/dL 06/03/24 Range/Units 12:23 Carbon Dioxide (22-30) mmol/L BUN (9-20) mg/dL Creatinine (0.66-1.25) mg/dL Glucose (74-99) mg/dL POC Glucose (mg/dL) 129 H (70-110) mg/dL Calcium (8.4-10.2) mg/dL Magnesium (1.6-2.3) mg/dL Assessment and Plan Assessment: 1. Chronic kidney disease stage IIIb with baseline creatinine around 2 mg/dL secondary to diabetic kidney disease and nephrosclerosis 2. Volume overload 3. Acute kidney injury, cardiorenal 4. Alcoholic liver disease with portal hypertension and recurrent ascites scheduled for weekly paracentesis. 5. Cardiomyopathy with EF of 15-20% 6. CHF acute on chronic with decreased ejection fraction Plan: okay for discharge discharge on torsemide 40 mg twice a day for 2-3 days and then daily after thathe at Follow-up as outpatient in 1-2 weeks. Discussed salt and fluid restriction
--- NOTE | 2024-06-03 15:15 | P.DS ---
Providers Date of admission: 06/01/24 13:04 Discharge Diagnosis: CHF exacerbation Alcoholic cirrhosis Acute kidney injury on chronic kidney disease stage V Hepatorenal syndrome Cardiorenal syndrome BPH Iron deficiency anemia and anemia of chronic kidney disease Type 2 diabetes Hospital Course: 58-year-old came in because he believes he is fluid overloaded along with shortness of breath orthopnea. Patient has history of congestive heart failure EF of around 2025% along with alcoholic cirrhosis. Patient was recently discharged from the hospital patient uses 40 mg of torsemide patient had a paracentesis at that time and was subsequently discharged on 40 mg of torsemide. Patient has not been compliant with diet and patient has been eating salty and sugary foods since his discharge. Patient does not have any pitting pedal edema but does have chronic edema of bilateral lower extremities with elevated JVD and pulmonary edema on the chest x-ray.patient's present BNP is 15,000 and patient had a previous BNP of 21,000 when he had his CHF exacerbation. Patient was admitted to internal medicine service. While admitted patient received paracentesis that was drained of 7300 cc of clear straw-colored fluid. Patient was seen by nephrology. He was placed on on IV Lasix 60 mg twice daily. Patient IV Lasix were converted to oral. Instructed to take 40 mg twice daily for 3 days followed by 40 mg daily per nephrology. Patient was also educated on fluid restriction and salt res triction. He will follow-up with nephrology and his PCP. He is being discharged home. Vital signs reviewed and stable. PHYSICAL EXAMINATION: GENERAL: The patient is alert and oriented x3, not in any acute distress. Well developed, well nourished. HEENT: Pupils are round and equally reacting to light. EOMI. No scleral icterus. No conjunctival pallor. Normocephalic, atraumatic. No pharyngeal erythema. No thyromegaly. CARDIOVASCULAR: S1 and S2 present. No murmurs, rubs, or gallops. PULMONARY: Chest is clear to auscultation, no wheezing or crackles. ABDOMEN: Soft, nontender, nondistended, normoactive bowel sounds. No palpable organomegaly. MUSCULOSKELETAL: No joint swelling or deformity. EXTREMITIES: No cyanosis, clubbing,Chronic nonpitting edema bilateral lower extremities NEUROLOGICAL: Gross neurological examination did not reveal any focal deficits. SKIN: No rashes. A total of rater than 30 minutes of time were spent preparing this complex discharge summary. Patient was discharge on June 03, 2024 at 12:53 PM. Attestation I have seen and examined this patient with my resident , discussed the same with the resident/TYSON, and agree with the dictator's assessment and plan as written Dr. Manuel gatica Expected date of discharge: 06/03/24 Attending physician: Brannon Boothe Consults: 06/01/24 13:28 Consult Physician Routine Consulting Provider: Sami Coleman Consult Reason/Comments: Cardiorenal and hepatorenal syndrome Do you want consulting provider notified?: Yes Primary care physician: Patricio Banuelos Plan - Discharge Summary Discharge Rx Participant: No New Discharge Prescriptions: New Furosemide [Lasix] 40 mg PO BID 3 Days #6 tablet Furosemide [Lasix] 40 mg PO DAILY #30 tablet Continue Mupirocin 2% Oint [Bactroban 2% Oint] 1 applic TOPICAL TID DULoxetine HCL [Cymbalta] 60 mg PO DAILY Midodrine [ProAmatine] 5 mg PO AC-TID Darbepoetin Severiano [Aranesp] 60 mcg SQ Q7D 30 Days #4 each Aspirin 81 mg PO DAILY #30 tab Potassium Chloride ER [K-Dur 10] 10 meq PO DAILY #30 tab Dulaglutide [Trulicity] 1.5 mg SQ SA carvediloL [Coreg] 3.125 mg PO BID-W/MEALS #60 tab Isosorbide Mononitrate ER [Imdur] 15 mg PO DAILY Albuterol Inhaler [Ventolin Hfa Inhaler] 2 puff INHALATION RT-Q6H PRN PRN Reason: Shortness Of Breath Simvastatin [Zocor] 20 mg PO HS Tamsulosin [Flomax] 0.4 mg PO DAILY Torsemide [Demadex] 40 mg PO DAILY #60 tab Dapagliflozin Propanediol [Farxiga] 5 mg PO DAILY #30 tab Discharge Medication List carvediloL [Coreg] 3.125 mg PO BID-W/MEALS #60 tab 01/30/24 [Rx] Albuterol Inhaler [Ventolin Hfa Inhaler] 2 puff INHALATION RT-Q6H PRN 05/17/24 [History] DULoxetine HCL [Cymbalta] 60 mg PO DAILY 05/17/24 [History] Isosorbide Mononitrate ER [Imdur] 15 mg PO DAILY 05/17/24 [History] Midodrine [ProAmatine] 5 mg PO AC-TID 05/17/24 [History] Mupirocin 2% Oint [Bactroban 2% Oint] 1 applic TOPICAL TID 05/17/24 [History] Simvastatin [Zocor] 20 mg PO HS 05/17/24 [History] Tamsulosin [Flomax] 0.4 mg PO DAILY 05/17/24 [History] Aspirin 81 mg PO DAILY #30 tab 05/25/24 [Rx] Dapagliflozin Propanediol [Farxiga] 5 mg PO DAILY #30 tab 05/25/24 [Rx] Darbepoetin Severiano [Aranesp] 60 mcg SQ Q7D 30 Days #4 each 05/25/24 [Rx] Potassium Chloride ER [K-Dur 10] 10 meq PO DAILY #30 tab 05/25/24 [Rx] Torsemide [Demadex] 40 mg PO DAILY #60 tab 05/25/24 [Rx] Dulaglutide [Trulicity] 1.5 mg SQ SA 06/01/24 [History] Furosemide [Lasix] 40 mg PO BID 3 Days #6 tablet 06/03/24 [Rx] Furosemide [Lasix] 40 mg PO DAILY #30 tablet 06/03/24 [Rx] Follow up Appointment(s)/Referral(s): María Gomez MD [STAFF PHYSICIAN] - 1 Week Patricio Banuelos DO [Primary Care Provider] - 1-2 days Patient Instructions/Handouts: Fluid Restriction (DC) Discharge Disposition: HOME SELF-CARE
[2024-06-05] MEDS ORDERED: NON FORMULARY DRUG (Dulaglutide [Trulicity] 1.5 MG/0.5 ML Each) SQ SCH (13:25)
== END 2024-06-03 14:56 | disposition home or self-care (01) ==
LOC: EC 10:31 → 6NMEDSUR 13:04
PROVIDERS: ADMIT Internal Medicine; ATTEND Internal Medicine
DX: I13.2 Hypertensive heart and chronic kidney disease with heart failure and with stage 5 chronic kidney disease, or end stage renal disease (principal); I50.9 Heart failure, unspecified; K70.31 Alcoholic cirrhosis of liver with ascites; N17.9 Acute kidney failure, unspecified; N18.5 Chronic kidney disease, stage 5; E11.22 Type 2 diabetes mellitus with diabetic chronic kidney disease; K76.7 Hepatorenal syndrome; N40.0 Benign prostatic hyperplasia without lower urinary tract symptoms; D50.9 Iron deficiency anemia, unspecified; D63.1 Anemia in chronic kidney disease; Z91.119 Patient's noncompliance with dietary regimen due to unspecified reason; K76.6 Portal hypertension; I42.9 Cardiomyopathy, unspecified; Z79.4 Long term (current) use of insulin; F32.A Depression, unspecified; F41.9 Anxiety disorder, unspecified; Z79.899 Other long term (current) drug therapy; Z79.82 Long term (current) use of aspirin; Z79.84 Long term (current) use of oral hypoglycemic drugs; Z88.2 Allergy status to sulfonamides; Z88.0 Allergy status to penicillin
CPT/HCPCS: 96376 ×2; 96372; 96374; 99285; 36415; 93005; 83880; 80053 ×2; 80048; 83735 ×2; 84100; 84484; 85025; 85610; 85730; 71046; 49083; G0378 ×3; J1940 ×3; J0881

== ENCOUNTER 2024-07-18 11:35 | Inpatient (IN) | payer OTHER ==
--- NOTE | 2024-07-18 11:42 | ED ---
General Adult HPI - General Stated complaint: SOB, Ascites Time Seen by Provider: 07/18/24 11:38 - History of Present Illness Initial comments: Dictation was produced using [employer] dictation software. please excuse any grammatical, word or spelling errors. Chief Complaint: 58-year-old male with multiple comorbidities presents to the emergency department for shortness of breath History of Present Illness: Patient 58-year-old male he has multiple comor bidities including heart failure, diabetes kidney disease. States that for the last several days he has been having worsening shortness of breath and pitting edema. Patient does not know what degree his heart failure is. Presents via EMS from home. Denies any fever. Denies any cough runny nose or sore throat. Denies any constitutional symptoms. The ROS documented in this emergency department record has been reviewed and confirmed by me. Those systems with pertinent positive or negative responses have been documented in the HPI. All other systems are other negative and/or noncontributory. - Related Data Home Medications Medication Instructions Recorded Confirmed Albuterol Inhaler [Ventolin Hfa 2 puff INHALATION RT-Q6H PRN 05/17/24 06/01/24 Inhaler] DULoxetine HCL [Cymbalta] 60 mg PO DAILY 05/17/24 06/01/24 Isosorbide Mononitrate ER [Imdur] 15 mg PO DAILY 05/17/24 06/01/24 Midodrine [ProAmatine] 5 mg PO AC-TID 05/17/24 06/01/24 Mupirocin 2% Oint [Bactroban 2% 1 applic TOPICAL TID 05/17/24 06/01/24 Oint] Simvastatin [Zocor] 20 mg PO HS 05/17/24 06/01/24 Tamsulosin [Flomax] 0.4 mg PO DAILY 05/17/24 06/01/24 Dulaglutide [Trulicity] 1.5 mg SQ SA 06/01/24 06/01/24 Previous Rx's Medication Instructions Recorded carvediloL [Coreg] 3.125 mg PO BID-W/MEALS #60 tab 01/30/24 Aspirin 81 mg PO DAILY #30 tab 05/25/24 Dapagliflozin Propanediol [Farxiga] 5 mg PO DAILY #30 tab 05/25/24 Darbepoetin Severiano [Aranesp] 60 mcg SQ Q7D 30 Days #4 each 05/25/24 Potassium Chloride ER [K-Dur 10] 10 meq PO DAILY #30 tab 05/25/24 Torsemide [Demadex] 40 mg PO DAILY #60 tab 05/25/24 Furosemide [Lasix] 40 mg PO BID 3 Days #6 tablet 06/03/24 Furosemide [Lasix] 40 mg PO DAILY #30 tablet 06/03/24 Allergies Allergy/AdvReac Type Severity Reaction Status Date / Time Penicillins Allergy Rash/Hives Verified 07/18/24 11:49 Sulfa (Sulfonamide Allergy Rash/Hives Verified 07/18/24 11:49 Antibiotics) indomethacin AdvReac cannot Verified 07/18/24 11:49 take with another prescribed med Review of Systems ROS Statement: Those systems with pertinent positive or pertinent negative responses have been documented in the HPI. ROS Other: All systems not noted in ROS Statement are negative. 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 Cardiovascular: Heart regular rate and rhythm Chest: Able to complete full sentences, no retractions, no tachypnea Abdomen: abdomen soft, non-tender, non-distended, no organomegaly Musculoskeletal: Pulses present and equal in all extremities, pitting edema 2+ to his lower extremities and abdomen Motor: no focal deficits noted Neurological: CN II-XII grossly intact, no focal motor or sensory deficits noted Skin: Intact with no visualized rashes Psych: Normal affect and mood Course Vital Signs 07/18/24 07/18/24 07/18/24 11:37 12:30 13:00 Temperature 97.7 F Pulse Rate 100 Pulse Rate [ 90 Planning Analyst ] Respiratory 20 Rate Blood Pressure 106/82 O2 Sat by Pulse 99 Oximetry 07/18/24 07/18/24 13:33 15:36 Temperature Pulse Rate 90 93 Pulse Rate [ Planning Analyst ] Respiratory 12 22 Rate Blood Pressure 101/89 106/86 O2 Sat by Pulse 100 98 Oximetry EKG Findings - EKG Comments: EKG Findings:: My EKG interpretation: Ventricular rate 95, sinus rhythm,. 08/05/2010, QRS 118, QTc 448. No ME prolongation, no QTC prolongation, no ST or T- wave changes noted. EKG compared to June 01, 2024 showing no changes. Overall, this EKG is unremarkable Medical Decision Making - Medical Decision Making Was pt. sent in by a medical professional or institution (, PA, GENETIC ENGINEER, urgent care, hospital, or care home...) When possible be specific @ -No Did you speak to anyone other than the patient for history (EMS, parent, family, police, friend...)? What history was obtained from this source @ -No Did you review nursing and triage notes (agree or disagree)? Why? @ -I reviewed and agree with nursing and triage notes Were old charts reviewed (outside hosp., previous admission, EMS record, old EKG, old radiological studies, urgent care reports/EKG's, care home records)? Report findings @ -Echocardiogram reviewed from May 18, 2024 shows 20 to 25% ejection fraction Differential Diagnosis (chest pain, altered mental status, abdominal pain women, abdominal pain men, vaginal bleeding, musculoskeletal, weakness, fever, dyspnea, syncope, headache, dizziness, GI bleed, back pain, seizure, CVA, palpatations, mental health)? @ -Differential Dyspnea: Coronary syndrome, arrhythmia, tamponade, asthma, COPD, pulmonary embolism, pneumonia, pneumothorax, pulmonary effusion, anaphylaxis, diabetic ketoacidosis, flailed chest, pulmonary contusion, diaphragmatic rupture, anemia, n euromuscular, this is not meant to be an all-inclusive list. EKG interpreted by me (3pts min.). @ -See above X-rays interpreted by me (1pt min.). @ -Checks x-ray shows heart failure CT interpreted by me (1pt min.). @ -None done U/S interpreted by me (1pt. min.). @ -None done What testing was considered but not performed or refused? (CT, X-rays, U/S, labs)? Why? @ -None What meds were considered but not given or refused? Why? @ -None Was smoking cessation discussed for >3mins.? @ -No Were there social determinants of health that impacted care today? How? (Homelessness, low income, unemployed, alcoholism, drug addiction, transportation, low edu. Level, literacy, decrease access to med. care, usp, rehab)? @ -No Was there de-escalation of care discussed even if they declined (Discuss DNR or withdrawal of care, Hospice)? DNR status @ -No What co-morbidities impacted this encounter? (DM, HTN, Smoking, COPD, CAD, Cancer, CVA, ARF, Chemo, Hep., AIDS, mental health diagnosis, sleep apnea, morbid obesity)? @ -Kidney disease, heart failure Was patient admitted / discharged? Hospital course, mention meds given and route, prescriptions, significant lab abnormalities, going to OR and other pertinent info. @ -58-year-old male with significant comorbidities presents to the ER for s hortness of breath. He has a history of heart failure with most recent echocardiogram showing 20-25% ejection fraction. Vital signs upon arrival are within acceptable limits. Patient in no acute distress at the bedside. Laboratory evaluation obtained. CBC coag panel metabolic panel within accep table limits. Brain nitric peptide elevated at 22,000. Troponin leak of 0.015. Viral testing negative. X-ray supports a diagnosis of heart failure. Patient given Lasix will be admitted with consultation cardiology for gentle diuresis Did you discuss the management of the patient with other professionals (professionals i.e. , PA, GENETIC ENGINEER, lab, RT, psych nurse, perinatal social worker, air conditioning technician, teacher, chief wellness officer, case packer and sealer)? Give summary @ -Case discussed with hospitalist for admission Was critical care preformed (if so, how long)? @ -No Undiagnosed new problem with uncertain prognosis? @ -No Drug Therapy requiring intensive monitoring for toxicity (Heparin, Nitro, Insulin, Cardizem)? @ -No Were any procedures done? @ -No Diagnosis/symptom? Acute, or Chronic, or Acute on Chronic? Uncomplicated (without systemic symptoms) or Complicated (systemic symptoms)? @ -Heart failure exacerbation Side effects of treatment? @ -No Exacerbation, Progression, or Severe Exacerbation? @ -No Poses a threat to life or bodily function? How? (Chest pain, [place], [place], pneumonia, PE, COPD, DKA, ARF, appy, cholecystitis, CVA, Diverticulitis, Homicidal, Suicidal, threat to staff... and all critical care pts) @ -yes - Lab Data Result diagrams: 07/18/24 13:57 07/18/24 13:57 Lab Results 07/18/24 07/18/24 07/18/24 Range/Units 13:57 13:57 13:57 WBC 3.2 L (3.8-10.6) k/uL RBC 3.15 L (4.30-5.90) m/uL Hgb 9.0 L (13.0-17.5) gm/dL Hct 28.8 L (39.0-53.0) % MCV 91.6 (80.0-100.0) fL MCH 28.7 (25.0-35.0) pg MCHC 31.4 (31.0-37.0) g/dL RDW 14.8 (11.5-15.5) % Plt Count 176 (150-450) k/uL MPV 7.7 Neutrophils % (Manual) 76 % Lymphocytes % (Manual) 14 % Monocytes % (Manual) 7 % Eosinophils % (Manual) 3 % Neutrophils # (Manual) 2.43 (1.3-7.7) k/uL Lymphocytes # (Manual) 0.45 L (1.0-4.8) k/uL Monocytes # (Manual) 0.22 (0-1.0) k/uL Eosinophils # (Manual) 0.10 (0-0.7) k/uL Nucleated RBCs 0 (0-0) /100 WBC Manual Slide Review Performed Hypochromasia Moderate PT 12.1 (10.0-12.5) sec INR 1.1 (<1.2) APTT 26.8 (22.0-30.0) sec Sodium 136 L (137-145) mmol/L Potassium 4.3 (3.5-5.1) mmol/L Chloride 101 (98-107) mmol/L Carbon Dioxide 28 (22-30) mmol/L Anion Gap 7 mmol/L BUN 54 H (9-20) mg/dL Creatinine 2.26 H (0.66-1.25) mg/dL Est GFR (CKD-EPI)AfAm 36 (>60 ml/min/1.73 sqM) Est GFR (CKD-EPI)NonAf 31 (>60 ml/min/1.73 sqM) Glucose 136 H (74-99) mg/dL Plasma Lactic Acid Kem (0.7-2.0) mmol/L Calcium 8.7 (8.4-10.2) mg/dL Magnesium 2.3 (1.6-2.3) mg/dL Total Bilirubin 1.5 H (0.2-1.3) mg/dL AST 27 (17-59) U/L ALT 11 (4-49) U/L Alkaline Phosphatase 142 H (38-126) U/L Troponin I (0.000-0.034) ng/mL NT-Pro-B Natriuret Pep 68427 pg/mL Total Protein 7.0 (6.3-8.2) g/dL Albumin 3.4 L (3.5-5.0) g/dL Influenza Type A (PCR) (Not Detectd) Influenza Type B (PCR) (Not Detectd) RSV (PCR) (Not Detectd) SARS-CoV-2 (PCR) (Not Detectd) 07/18/24 07/18/24 07/18/24 Range/Units 13:57 13:57 13:57 WBC (3.8-10.6) k/uL RBC (4.30-5.90) m/uL Hgb (13.0-17.5) gm/dL Hct (39.0-53.0) % MCV (80.0-100.0) fL MCH (25.0-35.0) pg MCHC (31.0-37.0) g/dL RDW (11.5-15.5) % Plt Count (150-450) k/uL MPV Neutrophils % (Manual) % Lymphocytes % (Manual) % Monocytes % (Manual) % Eosinophils % (Manual) % Neutrophils # (Manual) (1.3-7.7) k/uL Lymphocytes # (Manual) (1.0-4.8) k/uL Monocytes # (Manual) (0-1.0) k/uL Eosinophils # (Manual) (0-0.7) k/uL Nucleated RBCs (0-0) /100 WBC Manual Slide Review Hypochromasia PT (10.0-12.5) sec INR (<1.2) APTT (22.0-30.0) sec Sodium (137-145) mmol/L Potassium (3.5-5.1) mmol/L Chloride (98-107) mmol/L Carbon Dioxide (22-30) mmol/L Anion Gap mmol/L BUN (9-20) mg/dL Creatinine (0.66-1.25) mg/dL Est GFR (CKD-EPI)AfAm (>60 ml/min/1.73 sqM) Est GFR (CKD-EPI)NonAf (>60 ml/min/1.73 sqM) Glucose (74-99) mg/dL Plasma Lactic Acid Kem 1.6 (0.7-2.0) mmol/L Calcium (8.4-10.2) mg/dL Magnesium (1.6-2.3) mg/dL Total Bilirubin (0.2-1.3) mg/dL AST (17-59) U/L ALT (4-49) U/L Alkaline Phosphatase (38-126) U/L Troponin I 0.015 (0.000-0.034) ng/mL NT-Pro-B Natriuret Pep pg/mL Total Protein (6.3-8.2) g/dL Albumin (3.5-5.0) g/dL Influenza Type A (PCR) Not Detected (Not Detectd) Influenza Type B (PCR) Not Detected (Not Detectd) RSV (PCR) Not Detected (Not Detectd) SARS-CoV-2 (PCR) Not Detected (Not Detectd) Disposition Clinical Impression: Heart failure Disposition: ADMITTED IP TO THIS [facility] Condition: Fair Referrals: Patricio Banuelos DO [Primary Care Provider] - 1-2 days Decision Time: 15:46
[2024-07-18 14:20] LABS: INR 1.1 (<1.2); Partial Thromboplastin Time 26.8 sec (22.0-30.0); Prothrombin Time 12.1 sec (10.0-12.5)
[2024-07-18 14:27] LABS: HCT 28.8 % (39.0-53.0); Hypochromasia Moderate; MCH 28.7 pg (25.0-35.0); MCHC 31.4 g/dL (31.0-37.0); MCV 91.6 fL (80.0-100.0); Mean Platelet Volume 7.7; Platelet Count 176 k/uL (150-450); RBC 3.15 m/uL (4.30-5.90); RDW 14.8 % (11.5-15.5); WBC 3.2 k/uL (3.8-10.6)
[2024-07-18 14:34] LABS: ALT 11 U/L (4-49); AST 27 U/L (17-59); African American GFR (CKD) 36 (>60 ml/min/1.73 sqM); Albumin 3.4 g/dL (3.5-5.0); Alkaline Phosphatase 142 U/L (38-126); Anion Gap 7 mmol/L; Blood Urea Nitrogen 54 mg/dL (9-20); Calcium 8.7 mg/dL (8.4-10.2); Carbon Dioxide 28 mmol/L (22-30); Chloride 101 mmol/L (98-107); Glucose 136 mg/dL (74-99); Magnesium 2.3 mg/dL (1.6-2.3); Non-African American GFR(CKD) 31 (>60 ml/min/1.73 sqM); Potassium 4.3 mmol/L (3.5-5.1); Sodium 136 mmol/L (137-145); Total Bilirubin 1.5 mg/dL (0.2-1.3)
[2024-07-18 14:41] LABS: NT-Pro-B-Type Natriuretic Pept 22000 pg/mL
[2024-07-18 15:04] LABS: Lymphocytes # (M) 0.45 k/uL (1.0-4.8); Monocytes # (M) 0.22 k/uL (0-1.0); Neutrophils # (M) 2.43 k/uL (1.3-7.7); Neutrophils % (M) 76 %; Nucleated Red Blood Cells 0 /100 WBC (0-0); Total Cells Counted 100
--- NOTE | 2024-07-18 15:11 | XR ---
EXAMINATION TYPE: XR chest 2V DATE OF EXAM: 07/18/2024 2:19 PM COMPARISON: Previous chest radiograph 06/01/2024. CLINICAL INDICATION: Male, 58 years old with history of dyspnea; [facility] TECHNIQUE: XR chest 2V Frontal and lateral views of the chest. FINDINGS: Cardiomegaly and small to moderate right pleural effusion. Trace left pleural effusion. Pulmonary vascular congestive changes. No pneumothorax. No acute osseous abnormality. IMPRESSION: Cardiomegaly, pulmonary vascular congestive changes and bilateral pleural effusions suggesting pulmon nilo edema. [facility], , 07/18/2024 3:08 PM
[2024-07-18] MEDS: FUROSEMIDE 10 MG/ML 4 ML VIAL IV SCH (16:43)
[2024-07-18 21:16] LABS: Glucose,Whole Blood 118 mg/dL (70-110)
[2024-07-19 06:59] LABS: Glucose,Whole Blood 158 mg/dL (70-110)
[2024-07-19] MEDS: ASPIRIN 81 MG PO SCH (09:36)
[2024-07-19] MEDS: MIDODRINE 5 MG TAB PO SCH (09:36)
[2024-07-19] MEDS: carvediloL 3.125 MG TAB PO SCH (09:36)
[2024-07-19] MEDS: DAPAGLIFLOZIN PROPANEDIOL 5 MG TABLET PO SCH (09:36)
[2024-07-19] MEDS ORDERED: ALBUTEROL NEBULIZED 2.5 MG/3 ML INHALATION PRN (09:48)
[2024-07-19] MEDS: TAMSULOSIN 0.4 MG CAP.ER.24H PO SCH (11:05)
[2024-07-19] MEDS: DULoxetine HCL 60 MG CAPSULE.DR PO SCH (11:05)
[2024-07-19] MEDS: POTASSIUM CHLORIDE ER 10 MEQ TAB.ER.PRT PO SCH (11:06)
[2024-07-19 11:26] LABS: Glucose,Whole Blood 191 mg/dL (70-110)
--- NOTE | 2024-07-19 11:40 | P.CRDCN ---
History of Present Illness History of present illness: HISTORY OF PRESENT ILLNESS: This is a 58-year-old male with a past medical history significant for congestive heart failure, coronary artery disease, chronic kidney disease, hypertension, hyperlipidemia, diabetes, cardiomegaly, and obesity. Patient follows in the office with Dr. Gates. We have been asked to see the patient in consultation for CHF. Patient examined at the bedside. Patient presented to the hospital with a chief complaint of shortness of breath. Patient states he was eating foods that were high in salt at home. He noticed that he then started to feel short of breath and had increased lower extremity swelling. He does report he has been compliant with his medications. It is noted that the patient was hospitalized in May 2024 for CHF. The patient had previously been wearing a LifeVest for cardiomyopathy. He states he has returned to his LifeVest to [facility]. During his last admission in May there was some discussion about ICD implantation. At that time the patient had made a decision that he did not want to undergo ICD implantation. However at this time he states that he is reconsidering and may want to proceed with this. DIAGNOSTICS: - EKG reveals sinus mechanism with incomplete right bundle branch block - Chest xray cardiomegaly, pulmonary vascular congestion and bilateral pleural effusions suggesting pulmonary edema. - Laboratory data: WBC 3.2. Hemoglobin 9.0. Platelet count 176. Sodium 136. Potassium 4.3. BUN 54. Creatinine 2.26. Troponin negative x 1. proBNP 22,000. - Current home cardiac medications include aspirin 81 mg daily, carvedilol 3.125 mg twice a day, simvastatin 20 mg at night, midodrine 5 mg 3 times a day, Imdur 15 mg at night, Farxiga 5 mg daily - Most recent echocardiogram obtained in May 2024 reveals EF 20 to 25%, global hypokinesis, moderate pulmonary hypertension, moderate MR, mild to moderate TR -Patient underwent Lexiscan stress test in January 2024 revealing large area of previous inferior wall infarct. Possible minimal dale-infarct ischemia at the apex. Transient ischemic dilatation ratio was elevated. - Cardiac catheterization history: September 2023 revealing three-vessel coronary artery disease with chronic occlusion of the right coronary artery and significant disease involving the circumflex coronary artery and diffuse disease involving the LAD. Medical management was recommende REVIEW OF SYSTEMS: At the time of my exam: CONSTITUTIONAL: Denies fever or chills. HEENT: Denies blurred vision, vision changes, or eye pain. Denies hemoptysis CARDIOVASCULAR: Denies chest pain. Denies orthopnea. Denies PND. Denies palpitations RESPIRATORY: Denies shortness of breath. GASTROINTESTINAL: Denies abdominal pain. Denies nausea or vomiting. HEMATOLOGIC: Denies bleeding disorders. GENITOURINARY: Denies any blood in urine. SKIN: Denies pruitis. Denies rash. PHYSICAL EXAM: VITAL SIGNS: Reviewed. GENERAL: Well-developed in no acute distress. HEENT: Head is normocephalic. Pupils are equal, round. Sclerae anicteric. Mucous membranes of the mouth are moist. Neck supple. No JVD or thyromegaly LUNGS: Respirations even and unlabored. Lungs with bibasilar crackles HEART: Regular rate and rhythm. S1 and S2 heard. ABDOMEN: Soft. Nondistended. Nontender. EXTREMITIES: Normal range of motion. No clubbing or cyanosis. Peripheral pulses intact. 2+ bilateral lower extremity edema NEUROLOGIC: Awake and alert. Oriented x 3. ASSESSMENT: Shortness of breath Acute on chronic heart failure with reduced EF, 2024% Noncompliance with low-sodium diet Chronic kidney disease Coronary artery disease with known CRYSTAL MACHINING COORDINATOR of RCA and significant disease involving circumflex and LAD Ischemic cardiomyopathy, on LifeVest earlier this year, previously declining ICD Hypertension Hyperlipidemia Diabetes Obesity: BMI 41.1 Moderate pulmonary hypertension History of suicidal ideation History of paracentesis with removal of 12 L of fluid, May 2024 PLAN: No need to repeat echocardiogram as this was performed in May 2024 Resume home cardiac medications Continue IV Lasix 40 mg every 12 hours Daily weights, accurate intake and output, and monitoring of kidney function Reinforced low-sodium diet with patient Patient states he is now reconsidering ICD implantation. Patient may follow-up with Dr. Gates postdischarge and further discuss ICD implantation. Further recommendations pending patient course Nurse practitioner note has been reviewed by physician. Signing provider agrees with the documented findings, assessment, and plan of care documented by LAW FIRM ADMINISTRATOR as a scribe. 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 Past Anesthesia/Blood Transfusion Reactions: No Reported Reaction Past Psychological History: Anxiety, Depression Smoking Status: Current some day smoker Past Alcohol Use History: None Reported, Occasional Past Drug Use History: Marijuana Additional Drug Use History / Comment(s): patient doesn't smoke cigarettes but occassionally smokes marijuana Medications and Allergies Home Medications Medication Instructions Recorded Confirmed Type carvediloL [Coreg] 3.125 mg PO BID-W/MEALS #60 tab 01/30/24 07/18/24 Rx Albuterol Inhaler [Ventolin Hfa 2 puff INHALATION RT-Q6H PRN 05/17/24 07/18/24 History Inhaler] DULoxetine HCL [Cymbalta] 60 mg PO DAILY 05/17/24 07/18/24 History Isosorbide Mononitrate ER [Imdur] 15 mg PO HS 05/17/24 07/18/24 History Midodrine [ProAmatine] 5 mg PO TID@0900,1500,2100 05/17/24 07/18/24 History Simvastatin [Zocor] 20 mg PO HS 05/17/24 07/18/24 History Tamsulosin [Flomax] 0.4 mg PO DAILY 05/17/24 07/18/24 History Dapagliflozin Propanediol [Farxiga] 5 mg PO DAILY #30 tab 05/25/24 07/18/24 Rx Potassium Chloride ER [K-Dur 10] 10 meq PO DAILY #30 tab 05/25/24 07/18/24 Rx Aspirin 81 mg PO DAILY 07/18/24 07/18/24 History Vitamin D3(Unknown Dose) 1 tab PO DAILY 07/18/24 07/18/24 History Allergies Allergy/AdvReac Type Severity Reaction Status Date / Time Penicillins Allergy Rash/Hives Verified 07/18/24 17:29 Sulfa (Sulfonamide Allergy Rash/Hives Verified 07/18/24 17:29 Antibiotics) indomethacin AdvReac cannot Verified 07/18/24 17:29 take with another prescribed med Physical Exam Vitals: Vital Signs Temp Pulse Pulse Pulse Resp BP BP 07/19/24 09:30 90 18 07/19/24 07:34 97.3 F L 90 18 109/79 07/19/24 02:00 98.1 F 92 20 113/80 07/18/24 23:00 95 18 07/18/24 19:55 97.7 F 136 H 18 126/80 07/18/24 19:54 92 18 117/84 07/18/24 18:41 93 18 107/85 07/18/24 16:49 90 25 H 100/81 07/18/24 15:36 93 22 106/86 07/18/24 13:33 90 12 101/89 07/18/24 13:00 90 07/18/24 12:30 20 07/18/24 11:37 97.7 F 100 106/82 Pulse Ox 07/19/24 09:30 07/19/24 07:34 100 07/19/24 02:00 100 07/18/24 23:00 07/18/24 19:55 100 07/18/24 19:54 99 07/18/24 18:41 99 07/18/24 16:49 99 07/18/24 15:36 98 07/18/24 13:33 100 07/18/24 13:00 07/18/24 12:30 07/18/24 11:37 99 Intake and Output 07/18/24 07/19/24 07/19/24 22:59 06:59 14:59 Intake Total 1040 Output Total 200 1 Balance -200 1039 Intake: Oral 1040 Output: Urine 200 1 Other: Voiding Method External Catheter Bedside Commode Urinal Weight 120.6 kg 120.6 kg Results 07/18/24 13:57 07/18/24 13:57 Cardiac Enzymes 07/18/24 07/18/24 Range/Units 13:57 13:57 AST 27 (17-59) U/L Troponin I 0.015 (0.000-0.034) ng/mL Coagulation 07/18/24 Range/Units 13:57 PT 12.1 (10.0-12.5) sec APTT 26.8 (22.0-30.0) sec CBC 07/18/24 Range/Units 13:57 WBC 3.2 L (3.8-10.6) k/uL RBC 3.15 L (4.30-5.90) m/uL Hgb 9.0 L (13.0-17.5) gm/dL Hct 28.8 L (39.0-53.0) % Plt Count 176 (150-450) k/uL Comprehensive Metabolic Panel 07/18/24 Range/Units 13:57 Sodium 136 L (137-145) mmol/L Potassium 4.3 (3.5-5.1) mmol/L Chloride 101 (98-107) mmol/L Carbon Dioxide 28 (22-30) mmol/L BUN 54 H (9-20) mg/dL Creatinine 2.26 H (0.66-1.25) mg/dL Glucose 136 H (74-99) mg/dL Calcium 8.7 (8.4-10.2) mg/dL AST 27 (17-59) U/L ALT 11 (4-49) U/L Alkaline Phosphatase 142 H (38-126) U/L Total Protein 7.0 (6.3-8.2) g/dL Albumin 3.4 L (3.5-5.0) g/dL Current Medications Generic Name Dose Route Start Last Admin Trade Name Freq PRN Reason Stop Dose Admin Albuterol Sulfate 2.5 mg 07/19/24 09:48 Albuterol Nebulized 2.5 Mg/3 Ml INHALATION RT-Q6H PRN Shortness Of Breath Aspirin 81 mg 07/19/24 09:00 07/19/24 09:36 Aspirin 81 Mg PO 81 mg DAILY ROSE Administration Atorvastatin Calcium 10 mg 07/19/24 21:00 Atorvastatin 10 Mg Tab PO HS [facility] Carvedilol 3.125 mg 07/19/24 09:00 07/19/24 09:36 Carvedilol 3.125 Mg Tab PO 3.125 mg BID-W/MEALS ROSE Administration Dapagliflozin 5 mg 07/19/24 09:00 07/19/24 09:36 Dapagliflozin Propanediol 5 Mg Tablet PO 5 mg DAILY [facility] Administration Duloxetine HCl 60 mg 07/19/24 10:00 07/19/24 11:05 Duloxetine Hcl 60 Mg Capsule.Dr PO 60 mg DAILY [facility] Administration Enoxaparin Sodium 40 mg 07/20/24 09:00 Enoxaparin 40 Mg/0.4 Ml Syringe SQ DAILY [facility] Furosemide 40 mg 07/18/24 16:00 07/19/24 03:46 Furosemide 10 Mg/Ml 4 Ml Vial IV 40 mg Q12H ROSE Administration Isosorbide Mononitrate 15 mg 07/19/24 21:00 Isosorbide Mononitrate Er 30 Mg Tab.Er.24h PO HS [facility] Midodrine 5 mg 07/19/24 09:00 07/19/24 09:36 Midodrine 5 Mg Tab PO 5 mg TID@0900,1300,1700 [facility] Administration Potassium Chloride 10 meq 07/19/24 10:00 07/19/24 11:06 Potassium Chloride Er 10 Meq Tab.Er.Prt PO 10 meq DAILY [facility] Administration Tamsulosin HCl 0.4 mg 07/19/24 10:00 07/19/24 11:05 Tamsulosin 0.4 Mg Cap.Er.24h PO 0.4 mg DAILY [facility] Administration Intake and Output 07/18/24 07/19/24 07/19/24 22:59 06:59 14:59 Intake Total 1040 Output Total 200 1 Balance -200 1039 Intake: Oral 1040 Output: Urine 200 1 Other: Voiding Method External Catheter Bedside Commode Urinal Weight 120.6 kg 120.6 kg 07/18/24 13:57 07/18/24 13:57
[2024-07-19] MEDS ORDERED: ALBUMIN HUMAN 25% 50 ML in EMPTY BAG 1 BAG IVPB PRN (12:00)
--- NOTE | 2024-07-19 13:00 | XR ---
EXAMINATION TYPE: XR chest 1V portable DATE OF EXAM: 07/19/2024 12:50 PM COMPARISON: 07/18/2024 CLINICAL INDICATION: Male, 58 years old with history of ascites, TECHNIQUE: Single frontal view of the chest is obtained. FINDINGS: Stable right basilar effusion with underlying atelectasis and/or infiltrate. Left lung is c lear. Cardiomediastinal structures are unchanged. IMPRESSION: Stable chest [facility], , 07/19/2024 12:57 PM
[2024-07-19 16:02] LABS: Glucose,Whole Blood 294 mg/dL (70-110)
[2024-07-19 16:20] VITALS: BMI 40.6
--- NOTE | 2024-07-19 16:28 | US ---
EXAMINATION TYPE: US abdomen limited DATE OF EXAM: 07/19/2024 COMPARISON: NONE CLINICAL INDICATION: Male, 58 years old with history of Please assess for fluid pocket; ascites check TECHNIQUE: Grayscale imaging of the abdomen for ascites. FINDINGS: Moderate ascites seen in all 4 quadrants IMPRESSION: Marked ascites. [facility], , 07/19/2024 4:25 PM
--- NOTE | 2024-07-19 17:33 | P.HPIM ---
History of Present Illness H&P Date: 07/19/24 History of present illness; Patient 58-year-old male with CHF, DM, hypertension, CKD stage IIIb, liver cirrhosis presenting with shortness of breath and lower extremity edema. Patient states shortness of breath has progressed this last week. Patient was scheduled for regular weekly paracentesis but has not had one in 6 weeks. Currently patient endorses some lower extremity pain. He does not use home Lasix. He denies fever, chills, chest pain, palpitations, abdominal pain, weakness. Labs done in ER significant for WBC 3.2, hemoglobin 9.0, sodium 136, BUN 54, creatinine 2.26, glucose 158, total bilirubin 142. EKG done in the ER independently interpreted showed sinus rhythm, heart rate of 95, no ST segment elevation or depression seen, no T-wave inversions seen. Chest x-ray done independently interpreted in the ER showed cardiomegaly with vascular changes, bilateral pleural effusions Spoke with the ER physician, patient admission was accepted by internal medicine service for treatment. REVIEW OF SYSTEMS: Pertinent positives and negatives noted in HPI. PHYSICAL EXAMINATION: Vitals reviewed GENERAL: No acute distress. Well developed, well nourished. Obese. HEENT: Pupils are round and equally reacting to light. EOMI. No scleral icterus. Normocephalic, atraumatic. CARDIOVASCULAR: S1 and S2 present. No murmurs, rubs, or gallops. PULMONARY: Chest is clear to auscultation, no wheezing, rhonchi, or crackles. ABDOMEN: Hard, significantly distended, normoactive bowel sounds. No palpable organomegaly. MUSCULOSKELETAL: No apparent joint swelling and deformities. EXTREMITIES: No apparent cyanosis, clubbing. 2+ pedal edema. NEUROLOGICAL: The patient is alert and oriented x3, Gross neurological examination did not reveal any focal deficits. SKIN: No apparent rashes. Assessment and plan Patient 58-year-old male with CHF, DM, hypertension, CKD stage IIIb, liver cirr hosis presenting with shortness of breath and lower extremity edema. # CHF exacerbation, reduced EF 20 to 25% #Bilateral pleural effusions Low-sodium diet Begin Lasix 40 mg twice daily Resume home cardiac medications #Liver cirrhosis #Ascites Plan therapeutic paracentesis Give albumin if greater than 5 L taken Low-sodium diet Ascites amylase, glucose, total protein Chronic Medical Conditions # Essential hypertension #Uncontrolled Hyperglycemia #Diabetes mellitus, type 2 Begin Accu-Cheks and low-dose sliding scale, monitor for hypoglycemia #Coronary artery disease Resume home medication #CKD stage IIIb F: P.o. E: Replete as needed N: Low-sodium DVT ppx: Subq Lovenox 40 meq daily Code status: Full code Anticipated discharge place: Home Anticipated discharge time: 2 to 3 days Dictation was produced using [employer] dictation software. Please excuse any grammatical, word or spelling errors. Past Medical History Past Medical History: Heart Failure, Diabetes Mellitus, Eye Disorder, Hypertension, Prostate Disorder, Renal Disease Additional Past Medical History / Comment(s): cataracts, prostate issues History of Any Multi-Drug Resistant Organisms: None Reported Past Surgical History: Adenoidectomy Additional Past Surgical History / Comment(s): right great and 2nd toe am putation Past Anesthesia/Blood Transfusion Reactions: No Reported Reaction Past Psychological History: Anxiety, Depression Smoking Status: Current some day smoker Past Alcohol Use History: None Reported, Occasional Past Drug Use History: Marijuana Additional Drug Use History / Comment(s): patient doesn't smoke cigarettes but occassionally smokes marijuana Medications and Allergies Home Medications Medication Instructions Recorded Confirmed Type carvediloL [Coreg] 3.125 mg PO BID-W/MEALS #60 tab 01/30/24 07/18/24 Rx Albuterol Inhaler [Ventolin Hfa 2 puff INHALATION RT-Q6H PRN 05/17/24 07/18/24 History Inhaler] DULoxetine HCL [Cymbalta] 60 mg PO DAILY 05/17/24 07/18/24 History Isosorbide Mononitrate ER [Imdur] 15 mg PO HS 05/17/24 07/18/24 History Midodrine [ProAmatine] 5 mg PO TID@0900,1500,2100 05/17/24 07/18/24 History Simvastatin [Zocor] 20 mg PO HS 05/17/24 07/18/24 History Tamsulosin [Flomax] 0.4 mg PO DAILY 05/17/24 07/18/24 History Dapagliflozin Propanediol [Farxiga] 5 mg PO DAILY #30 tab 05/25/24 07/18/24 Rx Potassium Chloride ER [K-Dur 10] 10 meq PO DAILY #30 tab 05/25/24 07/18/24 Rx Aspirin 81 mg PO DAILY 07/18/24 07/18/24 History Vitamin D3(Unknown Dose) 1 tab PO DAILY 07/18/24 07/18/24 History Allergies Allergy/AdvReac Type Severity Reaction Status Date / Time Penicillins Allergy Rash/Hives Verified 07/18/24 17:29 Sulfa (Sulfonamide Allergy Rash/Hives Verified 07/18/24 17:29 Antibiotics) indomethacin AdvReac cannot Verified 07/18/24 17:29 take with another prescribed med Physical Exam Vitals: Vital Signs Temp Pulse Pulse Pulse Resp BP BP 07/19/24 13:51 98.2 F 95 18 116/81 07/19/24 09:30 90 18 07/19/24 07:34 97.3 F L 90 18 109/79 07/19/24 02:00 98.1 F 92 20 113/80 07/18/24 23:00 95 18 07/18/24 19:55 97.7 F 136 H 18 126/80 07/18/24 19:54 92 18 117/84 07/18/24 18:41 93 18 107/85 Pulse Ox 07/19/24 13:51 94 L 07/19/24 09:30 07/19/24 07:34 100 07/19/24 02:00 100 07/18/24 23:00 07/18/24 19:55 100 07/18/24 19:54 99 07/18/24 18:41 99 Intake and Output 07/19/24 07/19/24 07/19/24 06:59 14:59 22:59 Intake Total 1040 Output Total 1 Balance 1039 Intake: Oral 1040 Output: Urine 1 Other: Voiding Method External Catheter Bedside Commode Urinal Weight 120.6 kg 121.109 kg 121.109 kg Results CBC & Chem 7: 07/18/24 13:57 07/18/24 13:57 Labs: Abnormal Lab Results - Last 24 Hours (Table) 07/18/24 07/19/24 07/19/24 Range/Units 21:15 06:57 11:25 POC Glucose (mg/dL) 118 H 158 H 191 H (70-110) mg/dL 07/19/24 Range/Units 16:01 POC Glucose (mg/dL) 294 H (70-110) mg/dL Thrombosis Risk Factor Assmnt - Choose All That Apply Any of the Below Risk Factors Present?: Yes Each Factor Represents 1 point: Age 41-60 years, Minor surgery planned, Swollen legs (current) Other Risk Factors: No Other congenital or acquired thrombophilia - If yes, enter type in comment: No Thrombosis Risk Factor Assessment Total Risk Factor Score: 3 Thrombosis Risk Factor Assessment Level: Moderate Risk
[2024-07-19] MEDS: ISOSORBIDE MONONITRATE ER 30 MG TAB.ER.24H PO SCH (20:19)
[2024-07-19] MEDS: ATORVASTATIN 10 MG TAB PO SCH (20:19)
[2024-07-19 21:11] LABS: Glucose,Whole Blood 193 mg/dL (70-110)
[2024-07-20 06:15] LABS: Glucose,Whole Blood 99 mg/dL (70-110)
[2024-07-20] MEDS: ENOXAPARIN 40 MG/0.4 ML SYRINGE SQ SCH (08:03)
[2024-07-20 08:59] LABS: Blood Urea Nitrogen 52.5 mg/dL (9.0-27.0); Calcium 8.9 mg/dL (8.7-10.3); Carbon Dioxide 26.8 mmol/L (21.6-31.8); Chloride 100 mmol/L (96-109); Glucose 97 mg/dL (70-110); Potassium 4.5 mmol/L (3.5-5.5); Sodium 138 mmol/L (135-145)
[2024-07-20 09:11] LABS: HCT 29.9 % (39.6-50.0); MCH 28.1 pg (27.0-32.0); MCHC 30.1 g/dL (32.0-37.0); MCV 93.4 FL (80.0-97.0); Mean Platelet Volume 9.1 FL (9.5-12.2); NRBC Per 100 WBC 0 X 10*3/uL (0.00-0.01); Platelet Count 172 X 10*3/uL (140-440); RDW 14.8 % (11.5-14.5); WBC 3.73 X 10*3/uL (4.50-10.00)
--- NOTE | 2024-07-20 11:21 | P.PN ---
Subjective HISTORY OF PRESENT ILLNESS: This is a 58-year-old male with a past medical history significant for congestive heart failure, coronary artery disease, chronic kidney disease, hypertension, hyperlipidemia, diabetes, cardiomegaly, and obesity. Patient follows in the office with Dr. Gates. We have been asked to see the patient in consultation for CHF. Patient examined at the bedside. Patient presented to the hospital with a chief complaint of shortness of breath. Patient states he was eating foods that were high in salt at home. He noticed that he then started to feel short of breath and had increased lower extremity swelling. He does report he has been compliant with his medications. It is noted that the patient was hospitalized in May 2024 for CHF. The patient had previously been wearing a LifeVest for cardiomyopathy. He states he has returned to his LifeVest to [facility]. During his last admission in May there was some discussion about ICD implantation. At that time the patient had made a decision that he did not want to undergo ICD implantation. However at this time he states that he is reconsidering and may want to proceed with this. DIAGNOSTICS: - EKG reveals sinus mechanism with incomplete right bundle branch block - Chest xray cardiomegaly, pulmonary vascular congestion and bilateral pleural effusions suggesting pulmonary edema. - Laboratory data: WBC 3.2. Hemoglobin 9.0. Platelet count 176. Sodium 136. Potassium 4.3. BUN 54. Creatinine 2.26. Troponin negative x 1. proBNP 22,000. - Current home cardiac medications include aspirin 81 mg daily, carvedilol 3.125 mg twice a day, simvastatin 20 mg at night, midodrine 5 mg 3 times a day, Imdur 15 mg at night, Farxiga 5 mg daily - Most recent echocardiogram obtained in May 2024 reveals EF 20 to 25%, global hypokinesis, moderate pulmonary hypertension, moderate MR, mild to moderate TR -Patient underwent Lexiscan stress test in January 2024 revealing large area of previous inferior wall infarct. Possible minimal dale-infarct ischemia at the apex. Transient ischemic dilatation ratio was elevated. - Cardiac catheterization history: September 2023 revealing three-vessel coronary artery disease with chronic occlusion of the right coronary artery and significant disease involving the circumflex coronary artery and diffuse disease involving the LAD. Medical management was recommende 07/20/2024 Patient examined this morning at the bedside. Patient currently denies chest pain or pressure. He denies shortness of breath. He continues to have lower extremity edema. He remains on IV Lasix. Creatinine slightly increased today 2.5. PHYSICAL EXAM: VITAL SIGNS: Reviewed. GENERAL: Well-developed in no acute distress. HEENT: Head is normocephalic. Pupils are equal, round. Sclerae anicteric. Mucous membranes of the mouth are moist. Neck supple. No JVD or thyromegaly LUNGS: Respirations even and unlabored. Lungs with bibasilar crackles HEART: Regular rate and rhythm. S1 and S2 heard. ABDOMEN: Soft. Nondistended. Nontender. EXTREMITIES: Normal range of motion. No clubbing or cyanosis. Peripheral pulses intact. 2+ bilateral lower extremity edema NEUROLOGIC: Awake and alert. Oriented x 3. ASSESSMENT: Shortness of breath Acute on chronic heart failure with reduced EF, 2024% Noncompliance with low-sodium diet Chronic kidney disease Coronary artery disease with known RN VISITING of RCA and significant disease involving circumflex and LAD Ischemic cardiomyopathy, on LifeVest earlier this year, previously declining ICD Hypertension Hyperlipidemia Diabetes Obesity: BMI 41.1 Moderate pulmonary hypertension History of suicidal ideation History of paracentesis with removal of 12 L of fluid, May 2024 PLAN: No need to repeat echocardiogram as this was performed in May 2024 Resume home cardiac medications Continue IV Lasix 40 mg every 12 hours. Possible transition to oral diuretics tomorrow. Daily weights, accurate intake and output, and monitoring of kidney function Reinforced low-sodium diet with patient BPs soft in the 80-90s. Parameters placed on Coreg. Increase Midodrine to 10mg TID Patient states he is now reconsidering ICD implantation. Patient may follow-up with Dr. Gates postdischarge and further discuss ICD implantation. Further recommendations pending patient course Nurse practitioner note has been reviewed by physician. Signing provider agrees with the documented findings, assessment, and plan of care documented by [employer] HALL MANAGER as a scribe. Objective - Vital Signs Vital signs: Vital Signs Temp 98.0 F 07/20/24 06:55 Pulse 136 H 07/20/24 08:11 Resp 15 07/20/24 08:11 BP 97/68 07/20/24 06:55 Pulse Ox 98 07/20/24 06:55 FiO2 Intake & Output 07/19/24 07/20/24 07/20/24 18:59 06:59 18:59 Output Total 900 Balance -900 Weight 121.109 kg Output: Urine 900 Other: Voiding Method Bedside Commode Bedside Commode Bedside Commode Urinal Urinal Urinal - Labs CBC & Chem 7: 07/20/24 03:49 07/20/24 03:49 Labs: Abnormal Lab Results - Last 24 Hours (Table) 07/19/24 07/19/24 07/19/24 Range/Units 11:25 16:01 21:10 WBC (4.50-10.00) X 10*3/uL RBC (4.40-5.60) X 10*6/uL Hgb (13.0-17.0) g/dL Hct (39.6-50.0) % MCHC (32.0-37.0) g/dL RDW (11.5-14.5) % MPV (9.5-12.2) FL BUN (9.0-27.0) mg/dL Creatinine (0.6-1.5) mg/dL Est GFR (CKD-EPI) (>=60) BUN/Creatinine Ratio (12.00-20.00) Ratio POC Glucose (mg/dL) 191 H 294 H 193 H (70-110) mg/dL 07/20/24 07/20/24 Range/Units 03:49 03:49 WBC 3.73 L (4.50-10.00) X 10*3/uL RBC 3.20 L (4.40-5.60) X 10*6/uL Hgb 9.0 L (13.0-17.0) g/dL Hct 29.9 L (39.6-50.0) % MCHC 30.1 L (32.0-37.0) g/dL RDW 14.8 H (11.5-14.5) % MPV 9.1 L (9.5-12.2) FL BUN 52.5 H (9.0-27.0) mg/dL Creatinine 2.5 H (0.6-1.5) mg/dL Est GFR (CKD-EPI) 29 L (>=60) BUN/Creatinine Ratio 21.00 H (12.00-20.00) Ratio POC Glucose (mg/dL) (70-110) mg/dL
[2024-07-20] MEDS: MIDODRINE 5 MG TAB PO SCH (13:13)
[2024-07-20] MEDS: ALBUMIN HUMAN 25% 50 ML in EMPTY BAG 1 BAG IVPB SCH (14:21)
--- NOTE | 2024-07-20 14:32 | P.PN ---
Subjective Progress Note Date: 07/20/24 History of present illness; Patient 58-year-old male with CHF, DM, hypertension, CKD stage IIIb, liver cirr hosis presenting with shortness of breath and lower extremity edema. Patient states shortness of breath has progressed this last week. Patient was scheduled for regular weekly paracentesis but has not had one in 6 weeks. Currently patient endorses some lower extremity pain. He does not use home Lasix. He denies fever, chills, chest pain, palpitations, abdominal pain, weakness. -Labs done in ER significant for WBC 3.2, hemoglobin 9.0, sodium 136, BUN 54, creatinine 2.26, glucose 158, total bilirubin 142. -EKG done in the ER independently interpreted showed sinus rhythm, heart rate of 95, no ST segment elevation or depression seen, no T-wave inversions seen. -Chest x-ray done independently interpreted in the ER showed cardiomegaly with vascular changes, bilateral pleural effusions 07/20/2024 Patient seen and examined at bedside. Paracentesis completed 12,380 mL removed. Given 50 g albumin postprocedure. Patient tolerated procedure well. Ascites fluid studies pending. Today's labs WBC 3.73, hemoglobin 9.0, sodium 138, potassium 4.5, BUN 52.5, creatinine 2.5. REVIEW OF SYSTEMS: Pertinent positives and negatives noted in HPI. PHYSICAL EXAMINATION: Vitals reviewed GENERAL: No acute distress. Well developed, well nourished. Obese. HEENT: Pupils are round and equally reacting to light. EOMI. No scleral icterus. Normocephalic, atraumatic. CARDIOVASCULAR: S1 and S2 present. No murmurs, rubs, or gallops. PULMONARY: Chest is clear to auscultation, no wheezing, rhonchi, or crackles. ABDOMEN: Hard, significantly distended, normoactive bowel sounds. No palpable organomegaly. MUSCULOSKELETAL: No apparent joint swelling and deformities. EXTREMITIES: No apparent cyanosis, clubbing. 2+ pedal edema. NEUROLOGICAL: The patient is alert and oriented x3, Gross neurological examination did not reveal any focal deficits. SKIN: No apparent rashes. Assessment and plan Patient 58-year-old male with CHF, DM, hypertension, CKD stage IIIb, liver cirrhosis presenting with shortness of breath and lower extremity edema. # CHF exacerbation, reduced EF 20 to 25% #Bilateral pleural effusions Low-sodium diet Begin Lasix 40 mg twice daily Resume home cardiac medications #Liver cirrhosis #Ascites Paracentesis completed 07/20/2024, 12,380 mL removed Give albumin if greater than 5 L taken Low-sodium diet Ascites cell count, culture, amylase, glucose, total protein Chronic Medical Conditions # Essential hypertension #Uncontrolled Hyperglycemia #Diabetes mellitus, type 2 Begin Accu-Cheks and low-dose sliding scale, monitor for hypoglycemia #Coronary artery disease Resume home medication #CKD stage IIIb F: P.o. E: Replete as needed N: Low-sodium DVT ppx: Subq Lovenox 40 meq daily Code status: Full code Anticipated discharge place: Home Anticipated discharge time: 1 to 2 days Dictation was produced using [employer] dictation software. Please excuse any grammatical, word or spelling errors. Objective - Vital Signs Vital signs: Vital Signs Temp 98.0 F 07/20/24 06:55 Pulse 89 07/20/24 06:55 Resp 15 07/20/24 06:55 BP 97/68 07/20/24 06:55 Pulse Ox 98 07/20/24 06:55 FiO2 Intake & Output 07/19/24 07/20/24 07/20/24 18:59 06:59 18:59 Output Total 900 Balance -900 Weight 121.109 kg Output: Urine 900 Other: Voiding Method Bedside Commode Bedside Commode Urinal Urinal - Labs CBC & Chem 7: 07/20/24 03:49 07/20/24 03:49 Labs: Abnormal Lab Results - Last 24 Hours (Table) 07/19/24 07/19/24 07/19/24 Range/Units 11:25 16:01 21:10 POC Glucose (mg/dL) 191 H 294 H 193 H (70-110) mg/dL
--- NOTE | 2024-07-20 14:46 | US ---
EXAMINATION TYPE: US paracentesis abd w/image DATE OF EXAM: 07/20/2024 11:51 AM COMPARISON: prior paracentesis. CLINICAL INDICATION:Male, 58 years old with history of Ascites; , ascites ATTENDING: Dr. Antolin Valdovinos PROCEDURE: Informed consent was obtained. The risks of the procedure were extensively explained incl uding risk of damage to surrounding bowel with perforation and need for additional procedures. Proced ure was performed in the ultrasound procedure suite. Ultrasound imaging of the abdomen demonstrate as citic fluid. An appropriate access site was localized to the right lower abdomen. Timeout was taken p er protocol. The skin was prepped and draped in the usual sterile fashion and then locally anesthetiz ed with 1% lidocaine. The peritoneal cavity was then accessed via a 5-Hebrew one-step needle/cathete r. Approximately 38786 mL of clear straw-colored fluid was obtained. Samples were sent to the lab fo r analysis. Postprocedural imaging of the abdomen demonstrate a minimal amount of abdominal fluid. Patient tolerated procedure well without immediate complication. Hemostasis at the procedural site w as obtained with a sterile bandage placed. The patient was monitored in the holding area following th e procedure and was subsequently discharged in stable condition. IMPRESSION: Ultrasound guided paracentesis, with approximately 93641 mL of clear straw-colored fluid drained. Pat hology results pending. No immediate complications were evident. [facility], , 07/20/2024 2:43 PM
[2024-07-20 16:34] LABS: Glucose,Whole Blood 187 mg/dL (70-110)
[2024-07-20 21:10] LABS: Glucose,Whole Blood 140 mg/dL (70-110)
[2024-07-21 02:50] LABS: Amylase, Fluid Source Ascities; Amylase,Body Fluid 25 U/L; Glucose, BF Source Ascities; Glucose, Body Fluid 121 mg/dL; T. Protein, Body Fluid Source Ascities; Total Protein, Body Fluid >3600 mg/dL
[2024-07-21 04:03] LABS: Appearance,BF Hazy (Clear)
[2024-07-21 06:29] LABS: Glucose,Whole Blood 122 mg/dL (70-110)
[2024-07-21] MEDS: FUROSEMIDE 40 MG TAB PO SCH (08:45)
[2024-07-21 08:57] LABS: HCT 29.6 % (39.6-50.0); HGB 8.9 g/dL (13.0-17.0); MCH 27.7 pg (27.0-32.0); MCHC 30.1 g/dL (32.0-37.0); MCV 92.2 FL (80.0-97.0); Mean Platelet Volume 9.2 FL (9.5-12.2); NRBC Per 100 WBC 0 X 10*3/uL (0.00-0.01); Platelet Count 156 X 10*3/uL (140-440); RBC 3.21 X 10*6/uL (4.40-5.60); RDW 14.7 % (11.5-14.5); WBC 3.76 X 10*3/uL (4.50-10.00)
[2024-07-21 09:17] LABS: BUN/Creat Ratio 21.35 Ratio (12.00-20.00); Blood Urea Nitrogen 55.5 mg/dL (9.0-27.0); Calcium 8.5 mg/dL (8.7-10.3); Carbon Dioxide 26.5 mmol/L (21.6-31.8); Chloride 102 mmol/L (96-109); Glucose 106 mg/dL (70-110); Potassium 5.3 mmol/L (3.5-5.5); Sodium 138 mmol/L (135-145)
--- NOTE | 2024-07-21 09:27 | P.PN ---
Subjective HISTORY OF PRESENT ILLNESS: This is a 58-year-old male with a past medical history significant for congestive heart failure, coronary artery disease, chronic kidney disease, hypertension, hyperlipidemia, diabetes, cardiomegaly, and obesity. Patient follows in the office with Dr. Gates. We have been asked to see the patient in consultation for CHF. Patient examined at the bedside. Patient presented to the hospital with a chief complaint of shortness of breath. Patient states he was eating foods that were high in salt at home. He noticed that he then started to feel short of breath and had increased lower extremity swelling. He does report he has been compliant with his medications. It is noted that the patient was hospitalized in May 2024 for CHF. The patient had previously been wearing a LifeVest for cardiomyopathy. He states he has returned to his LifeVest to [facility]. During his last admission in May there was some discussion about ICD implantation. At that time the patient had made a decision that he did not want to undergo ICD implantation. However at this time he states that he is reconsidering and may want to proceed with this. DIAGNOSTICS: - EKG reveals sinus mechanism with incomplete right bundle branch block - Chest xray cardiomegaly, pulmonary vascular congestion and bilateral pleural effusions suggesting pulmonary edema. - Laboratory data: WBC 3.2. Hemoglobin 9.0. Platelet count 176. Sodium 136. Potassium 4.3. BUN 54. Creatinine 2.26. Troponin negative x 1. proBNP 22,000. - Current home cardiac medications include aspirin 81 mg daily, carvedilol 3.125 mg twice a day, simvastatin 20 mg at night, midodrine 5 mg 3 times a day, Imdur 15 mg at night, Farxiga 5 mg daily - Most recent echocardiogram obtained in May 2024 reveals EF 20 to 25%, global hypokinesis, moderate pulmonary hypertension, moderate MR, mild to moderate TR -Patient underwent Lexiscan stress test in January 2024 revealing large area of previous inferior wall infarct. Possible minimal dale-infarct ischemia at the apex. Transient ischemic dilatation ratio was elevated. - Cardiac catheterization history: September 2023 revealing three-vessel coronary artery disease with chronic occlusion of the right coronary artery and significant disease involving the circumflex coronary artery and diffuse disease involving the LAD. Medical management was recommende 07/20/2024 Patient examined this morning at the bedside. Patient currently denies chest pain or pressure. He denies shortness of breath. He continues to have lower extremity edema. He remains on IV Lasix. Creatinine slightly increased today 2.5. 07/21/2024 Patient examined this morning at the bedside. Patient currently denies chest pain or pressure. He denies shortness of breath. He underwent paracentesis yesterday with removal of 12 L. He remains on IV Lasix. Creatinine today increased to 2.6. Blood pressures improved today with a systolic in the low 100s. PHYSICAL EXAM: VITAL SIGNS: Reviewed. GENERAL: Well-developed in no acute distress. HEENT: Head is normocephalic. Pupils are equal, round. Sclerae anicteric. Mucous membranes of the mouth are moist. Neck supple. No JVD or thyromegaly LUNGS: Respirations even and unlabored. Lungs diminished bilaterally HEART: Regular rate and rhythm. S1 and S2 heard. ABDOMEN: Soft. Nondistended. Nontender. EXTREMITIES: Normal range of motion. No clubbing or cyanosis. Peripheral pulse s intact. 2+ bilateral lower extremity edema NEUROLOGIC: Awake and alert. Oriented x 3. ASSESSMENT: Shortness of breath Acute on chronic heart failure with reduced EF, 5% Noncompliance with low-sodium diet Chronic kidney disease Coronary artery disease with known HOTEL OFFICE MANAGER of RCA and significant disease involving circumflex and LAD Ischemic cardiomyopathy, on LifeVest earlier this year, previously declining ICD Hypertension Hyperlipidemia Diabetes Obesity: BMI 41.1 Moderate pulmonary hypertension History of suicidal ideation History of paracentesis with removal of 12 L of fluid, May 2024 Status post paracentesis with removal of 12 L, 07/20/2024 PLAN: No need to repeat echocardiogram as this was performed in May 2024 Resume home cardiac medications Discontinue IV Lasix. Begin oral Lasix 40 mg twice a day Daily weights, accurate intake and output, and monitoring of kidney function Reinforced low-sodium diet with patient Patient states he is now reconsidering ICD implantation. Patient may follow-up with Dr. Gates postdischarge and further discuss ICD implantation. Stable for discharge today from a cardiac standpoint Further recommendations pending patient course Nurse practitioner note has been reviewed by physician. Signing provider agrees with the documented findings, assessment, and plan of care documented by EDUCATIONAL INSTITUTION PRESIDENT as a scribe. Objective - Vital Signs Vital signs: Vital Signs Temp 98.3 F 07/21/24 06:58 Pulse 90 07/21/24 06:58 Resp 16 07/21/24 06:58 BP 100/65 07/21/24 06:58 Pulse Ox 98 07/21/24 06:58 FiO2 Intake & Output 07/20/24 07/21/24 07/21/24 18:59 06:59 18:59 Output Total 400 350 Balance -400 -350 Weight 112.5 kg Output: Urine 400 350 Other: Voiding Method Bedside Commode Bedside Commode Urinal Urinal # Voids 2 # Bowel Movements 1 - Labs CBC & Chem 7: 07/21/24 03:11 07/21/24 03:11 Labs: Abnormal Lab Results - Last 24 Hours (Table) 07/20/24 07/20/24 07/20/24 Range/Units 11:42 16:32 21:08 WBC (4.50-10.00) X 10*3/uL RBC (4.40-5.60) X 10*6/uL Hgb (13.0-17.0) g/dL Hct (39.6-50.0) % MCHC (32.0-37.0) g/dL RDW (11.5-14.5) % MPV (9.5-12.2) FL BUN (9.0-27.0) mg/dL Creatinine (0.6-1.5) mg/dL Est GFR (CKD-EPI) (>=60) BUN/Creatinine Ratio (12.00-20.00) Ratio POC Glucose (mg/dL) 187 H 140 H (70-110) mg/dL Calcium (8.7-10.3) mg/dL Fluid Appearance Hazy A (Clear) 07/21/24 07/21/24 07/21/24 Range/Units 03:11 03:11 06:28 WBC 3.76 L (4.50-10.00) X 10*3/uL RBC 3.21 L (4.40-5.60) X 10*6/uL Hgb 8.9 L (13.0-17.0) g/dL Hct 29.6 L (39.6-50.0) % MCHC 30.1 L (32.0-37.0) g/dL RDW 14.7 H (11.5-14.5) % MPV 9.2 L (9.5-12.2) FL BUN 55.5 H (9.0-27.0) mg/dL Creatinine 2.6 H (0.6-1.5) mg/dL Est GFR (CKD-EPI) 28 L (>=60) BUN/Creatinine Ratio 21.35 H (12.00-20.00) Ratio POC Glucose (mg/dL) 122 H (70-110) mg/dL Calcium 8.5 L (8.7-10.3) mg/dL Fluid Appearance (Clear) Microbiology - Last 24 Hours (Table) 07/20/24 11:42 Gram Stain - Preliminary Paracentesis Fluid
[2024-07-21 11:50] LABS: Glucose,Whole Blood 120 mg/dL (70-110)
[2024-07-21 16:55] LABS: Glucose,Whole Blood 127 mg/dL (70-110)
--- NOTE | 2024-07-21 19:34 | P.PN ---
Subjective Progress Note Date: 07/21/24 History of present illness; Patient 58-year-old male with CHF, DM, hypertension, CKD stage IIIb, liver cirr hosis presenting with shortness of breath and lower extremity edema. Patient states shortness of breath has progressed this last week. Patient was scheduled for regular weekly paracentesis but has not had one in 6 weeks. Currently patient endorses some lower extremity pain. He does not use home Lasix. He denies fever, chills, chest pain, palpitations, abdominal pain, weakness. -Labs done in ER significant for WBC 3.2, hemoglobin 9.0, sodium 136, BUN 54, creatinine 2.26, glucose 158, total bilirubin 142. -EKG done in the ER independently interpreted showed sinus rhythm, heart rate of 95, no ST segment elevation or depression seen, no T-wave inversions seen. -Chest x-ray done independently interpreted in the ER showed cardiomegaly with vascular changes, bilateral pleural effusions 07/20/2024 Patient seen and examined at bedside. Paracentesis completed 12,380 mL removed. Given 50 g albumin postprocedure. Patient tolerated procedure well. Ascites fluid studies pending. Today's labs WBC 3.73, hemoglobin 9.0, sodium 138, potassium 4.5, BUN 52.5, creatinine 2.5. 07/21/2024 Patient seen and examined at bedside. He has no complaints other than some left arm pain which only lasted several minutes. Labs significant for WBC 3.7, hemoglobin 8.9, platelets 156, BUN 55.5, creatinine 2.6. Pleural fluid cytology pending. REVIEW OF SYSTEMS: Pertinent positives and negatives noted in HPI. PHYSICAL EXAMINATION: Vitals reviewed GENERAL: No acute distress. Obese. HEENT: Pupils are round and equally reacting to light. EOMI. No scleral icterus. Normocephalic, atraumatic. CARDIOVASCULAR: S1 and S2 present. No murmurs, rubs, or gallops. PULMONARY: Diminished breath sounds bibasilarly, no wheezing, rhonchi, or crackles. ABDOMEN: Hard, mildly distended, normoactive bowel sounds. No palpable organ omegaly. MUSCULOSKELETAL: No apparent joint swelling and deformities. EXTREMITIES: No apparent cyanosis, clubbing. 1+ pedal edema. NEUROLOGICAL: The patient is alert and oriented x3, Gross neurological examination did not reveal any focal deficits. SKIN: No apparent rashes. Assessment and plan Patient 58-year-old male with CHF, DM, hypertension, CKD stage IIIb, liver cirrhosis presenting with shortness of breath and lower extremity edema. # CHF exacerbation, reduced EF 20 to 25% #Bilateral pleural effusions Low-sodium diet Continue Lasix 40 mg p.o. twice daily Resume home cardiac medications #Liver cirrhosis #Ascites Paracentesis completed 07/20/2024, 12,380 mL removed Given albumin Low-sodium diet Ascites fluid significant for protein >3600, WBC<2000 Chronic Medical Conditions # Essential hypertension #Uncontrolled Hyperglycemia #Diabetes mellitus, type 2 Begin Accu-Cheks and low-dose sliding scale, monitor for hypoglycemia #Coronary artery disease Resume home medication #CKD stage IIIb F: P.o. E: Replete as needed N: Low-sodium DVT ppx: Subq Lovenox 40 meq daily Code status: Full code Anticipated discharge place: Home Anticipated discharge time: Tomorrow Dictation was produced using [employer] dictation software. Please excuse any grammatical, word or spelling errors. Objective - Vital Signs Vital signs: Vital Signs Temp 98.1 F 07/21/24 01:43 Pulse 88 07/21/24 01:43 Resp 20 07/21/24 01:43 BP 116/70 07/21/24 01:43 Pulse Ox 100 07/21/24 01:43 FiO2 Intake & Output 07/20/24 07/21/24 07/21/24 18:59 06:59 18:59 Output Total 400 350 Balance -400 -350 Weight 112.5 kg Output: Urine 400 350 Other: Voiding Method Bedside Commode Bedside Commode Urinal Urinal # Voids 2 # Bowel Movements 1 - Labs CBC & Chem 7: 07/21/24 03:11 07/21/24 03:11 Labs: Abnormal Lab Results - Last 24 Hours (Table) 07/20/24 07/20/24 07/20/24 Range/Units 03:49 03:49 11:42 WBC 3.73 L (4.50-10.00) X 10*3/uL RBC 3.20 L (4.40-5.60) X 10*6/uL Hgb 9.0 L (13.0-17.0) g/dL Hct 29.9 L (39.6-50.0) % MCHC 30.1 L (32.0-37.0) g/dL RDW 14.8 H (11.5-14.5) % MPV 9.1 L (9.5-12.2) FL BUN 52.5 H (9.0-27.0) mg/dL Creatinine 2.5 H (0.6-1.5) mg/dL Est GFR (CKD-EPI) 29 L (>=60) BUN/Creatinine Ratio 21.00 H (12.00-20.00) Ratio POC Glucose (mg/dL) (70-110) mg/dL Fluid Appearance Hazy A (Clear) 07/20/24 07/20/24 07/21/24 Range/Units 16:32 21:08 06:28 WBC (4.50-10.00) X 10*3/uL RBC (4.40-5.60) X 10*6/uL Hgb (13.0-17.0) g/dL Hct (39.6-50.0) % MCHC (32.0-37.0) g/dL RDW (11.5-14.5) % MPV (9.5-12.2) FL BUN (9.0-27.0) mg/dL Creatinine (0.6-1.5) mg/dL Est GFR (CKD-EPI) (>=60) BUN/Creatinine Ratio (12.00-20.00) Ratio POC Glucose (mg/dL) 187 H 140 H 122 H (70-110) mg/dL Fluid Appearance (Clear) Microbiology - Last 24 Hours (Table) 07/20/24 11:42 Gram Stain - Preliminary Paracentesis Fluid
[2024-07-21 20:56] LABS: Glucose,Whole Blood 181 mg/dL (70-110)
[2024-07-22 06:08] LABS: Glucose,Whole Blood 123 mg/dL (70-110)
[2024-07-22 08:58] LABS: HCT 28.5 % (39.6-50.0); HGB 8.7 g/dL (13.0-17.0); MCH 27.9 pg (27.0-32.0); MCHC 30.5 g/dL (32.0-37.0); MCV 91.3 FL (80.0-97.0); Mean Platelet Volume 9.1 FL (9.5-12.2); NRBC Per 100 WBC 0 X 10*3/uL (0.00-0.01); Platelet Count 150 X 10*3/uL (140-440); RBC 3.12 X 10*6/uL (4.40-5.60); RDW 14.8 % (11.5-14.5); WBC 2.94 X 10*3/uL (4.50-10.00)
[2024-07-22 08:59] LABS: BUN/Creat Ratio 23.29 Ratio (12.00-20.00); Blood Urea Nitrogen 55.9 mg/dL (9.0-27.0); Calcium 8.4 mg/dL (8.7-10.3); Carbon Dioxide 26.3 mmol/L (21.6-31.8); Chloride 100 mmol/L (96-109); Glucose 101 mg/dL (70-110); Potassium 4.3 mmol/L (3.5-5.5); Sodium 136 mmol/L (135-145)
--- NOTE | 2024-07-22 09:33 | P.PN ---
Subjective HISTORY OF PRESENT ILLNESS: This is a 58-year-old male with a past medical history significant for congestive heart failure, coronary artery disease, chronic kidney disease, hypertension, hyperlipidemia, diabetes, cardiomegaly, and obesity. Patient follows in the office with Dr. Gates. We have been asked to see the patient in consultation for CHF. Patient examined at the bedside. Patient presented to the hospital with a chief complaint of shortness of breath. Patient states he was eating foods that were high in salt at home. He noticed that he then started to feel short of breath and had increased lower extremity swelling. He does report he has been compliant with his medications. It is noted that the patient was hospitalized in May 2024 for CHF. The patient had previously been wearing a LifeVest for cardiomyopathy. He states he has returned to his LifeVest to [facility]. During his last admission in May there was some discussion about ICD implantation. At that time the patient had made a decision that he did not want to undergo ICD implantation. However at this time he states that he is reconsidering and may want to proceed with this. DIAGNOSTICS: - EKG reveals sinus mechanism with incomplete right bundle branch block - Chest xray cardiomegaly, pulmonary vascular congestion and bilateral pleural effusions suggesting pulmonary edema. - Laboratory data: WBC 3.2. Hemoglobin 9.0. Platelet count 176. Sodium 136. Potassium 4.3. BUN 54. Creatinine 2.26. Troponin negative x 1. proBNP 22,000. - Current home cardiac medications include aspirin 81 mg daily, carvedilol 3.125 mg twice a day, simvastatin 20 mg at night, midodrine 5 mg 3 times a day, Imdur 15 mg at night, Farxiga 5 mg daily - Most recent echocardiogram obtained in May 2024 reveals EF 20 to 25%, global hypokinesis, moderate pulmonary hypertension, moderate MR, mild to moderate TR -Patient underwent Lexiscan stress test in January 2024 revealing large area of previous inferior wall infarct. Possible minimal dale-infarct ischemia at the apex. Transient ischemic dilatation ratio was elevated. - Cardiac catheterization history: September 2023 revealing three-vessel coronary artery disease with chronic occlusion of the right coronary artery and significant disease involving the circumflex coronary artery and diffuse disease involving the LAD. Medical management was recommende 07/20/2024 Patient examined this morning at the bedside. Patient currently denies chest pain or pressure. He denies shortness of breath. He continues to have lower extremity edema. He remains on IV Lasix. Creatinine slightly increased today 2.5. 07/21/2024 Patient examined this morning at the bedside. Patient currently denies chest pain or pressure. He denies shortness of breath. He underwent paracentesis yesterday with removal of 12 L. He remains on IV Lasix. Creatinine today increased to 2.6. Blood pressures improved today with a systolic in the low 100s. 07/22/2024 Patient examined this morning at the bedside. Patient currently denies chest pain or pressure. He denies shortness of breath. Vital signs are stable. He remains on oral diuretics. PHYSICAL EXAM: VITAL SIGNS: Reviewed. GENERAL: Well-developed in no acute distress. HEENT: Head is normocephalic. Pupils are equal, round. Sclerae anicteric. Mucous membranes of the mouth are moist. Neck supple. No JVD or thyromegaly LUNGS: Respirations even and unlabored. Lungs diminished bilaterally HEART: Regular rate and rhythm. S1 and S2 heard. ABDOMEN: Soft. Nondistended. Nontender. EXTREMITIES: Normal range of motion. No clubbing or cyanosis. Peripheral pulses intact. 2+ bilateral lower extremity edema NEUROLOGIC: Awake and alert. Oriented x 3. 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 Patient may follow-up with Dr. Gates postdischarge and further discuss ICD implantation. Stable for discharge today from a cardiac standpoint We will sign off. Please reconsult if needed. Nurse practitioner note has been reviewed by physician. Signing provider agrees with the documented findings, assessment, and plan of care documented by RESEARCH CHEMIST as a scribe. Objective - Vital Signs Vital signs: Vital Signs Temp 98.7 F 07/22/24 06:56 Pulse 88 07/22/24 06:56 Resp 18 07/22/24 06:56 BP 95/62 07/22/24 06:56 Pulse Ox 98 07/22/24 06:56 FiO2 Intake & Output 07/21/24 07/22/24 07/22/24 18:59 06:59 18:59 Weight 113 kg - Labs CBC & Chem 7: 07/22/24 03:35 07/22/24 03:35 Labs: Abnormal Lab Results - Last 24 Hours (Table) 07/21/24 07/21/24 07/21/24 Range/Units 11:47 16:53 20:55 WBC (4.50-10.00) X 10*3/uL RBC (4.40-5.60) X 10*6/uL Hgb (13.0-17.0) g/dL Hct (39.6-50.0) % MCHC (32.0-37.0) g/dL RDW (11.5-14.5) % MPV (9.5-12.2) FL BUN (9.0-27.0) mg/dL Creatinine (0.6-1.5) mg/dL Est GFR (CKD-EPI) (>=60) BUN/Creatinine Ratio (12.00-20.00) Ratio POC Glucose (mg/dL) 120 H 127 H 181 H (70-110) mg/dL Calcium (8.7-10.3) mg/dL 07/22/24 07/22/24 07/22/24 Range/Units 03:35 03:35 06:07 WBC 2.94 L (4.50-10.00) X 10*3/uL RBC 3.12 L (4.40-5.60) X 10*6/uL Hgb 8.7 L (13.0-17.0) g/dL Hct 28.5 L (39.6-50.0) % MCHC 30.5 L (32.0-37.0) g/dL RDW 14.8 H (11.5-14.5) % MPV 9.1 L (9.5-12.2) FL BUN 55.9 H (9.0-27.0) mg/dL Creatinine 2.4 H (0.6-1.5) mg/dL Est GFR (CKD-EPI) 31 L (>=60) BUN/Creatinine Ratio 23.29 H (12.00-20.00) Ratio POC Glucose (mg/dL) 123 H (70-110) mg/dL Calcium 8.4 L (8.7-10.3) mg/dL Microbiology - Last 24 Hours (Table) 07/20/24 11:42 Gram Stain - Preliminary Paracentesis Fluid Body Fluid Culture - Preliminary
[2024-07-22 12:01] LABS: Glucose,Whole Blood 137 mg/dL (70-110)
--- NOTE | 2024-07-22 14:21 | P.DS ---
Providers Date of admission: 07/18/24 15:41 Expected date of discharge: 07/22/24 Attending physician: Zay Pal Consults: 07/18/24 15:41 Consult Physician Routine Consulting Provider: Santiago Zamarripa Consult Reason/Comments: chf Do you want consulting provider notified?: Yes Primary care physician: Patricio [facility] Course: Discharge diagnoses; # CHF exacerbation, reduced EF 20 to 25% #Bilateral pleural effusions #Liver cirrhosis #Ascites # Essential hypertension #Uncontrolled Hyperglycemia #Diabetes mellitus, type 2 #Coronary artery disease #CKD stage IIIb Hospital course; Patient is stable for discharge to home. Will begin new prescription Lasix 40 mg twice daily, and increase dose midodrine 10 mg 3 times daily. A prescription was given to [facility] interventional radiology will call patient to set up weekly paracentesis. He will need to call insurance to facilitate rides to facility, as needed. He is to follow-up with his PCP, cardiology Dr. Gates for ICD placement and interventional radiology for paracentesis. History of present illness; Patient 58-year-old male with CHF, DM, hypertension, CKD stage IIIb, liver cirrhosis presenting with shortness of breath and lower extremity edema. Patient states shortness of breath has progressed this last week. Patient was scheduled for regular weekly paracentesis but has not had one in 6 weeks. Currently patient endorses some lower extremity pain. He does not use home Lasix. He denies fever, chills, chest pain, palpitations, abdominal pain, weakness. -Labs done in ER significant for WBC 3.2, hemoglobin 9.0, sodium 136, BUN 54, creatinine 2.26, glucose 158, total bilirubin 142. -EKG done in the ER independently interpreted showed sinus rhythm, heart rate of 95, no ST segment elevation or depression seen, no T-wave inversions seen. -Chest x-ray done independently interpreted in the ER showed cardiomegaly with vascular changes, bilateral pleural effusions During hospital course patient had paracentesis completed 12,380 mL removed. Given 50 g albumin postprocedure. He was seen by cardiology and medications were adjusted. PHYSICAL EXAMINATION: Vitals reviewed GENERAL: No acute distress. Obese. HEENT: Pupils are round and equally reacting to light. EOMI. No scleral icterus. Normocephalic, atraumatic. CARDIOVASCULAR: S1 and S2 present. No murmurs, rubs, or gallops. PULMONARY: Breathe sounds bilaterally, no wheezing, rhonchi, or crackles. ABDOMEN: Mildly hard, improved distension, normoactive bowel sounds. No palpable organomegaly. MUSCULOSKELETAL: No apparent joint swelling and deformities. EXTREMITIES: No apparent cyanosis, clubbing. 1+ pedal edema. NEUROLOGICAL: The patient is alert and oriented x3, Gross neurological examination did not reveal any focal deficits. SKIN: No apparent rashes. Dictation was produced using [employer] dictation software. please excuse any grammatical, word or spelling errors. Patient Condition at Discharge: Stable Plan - Discharge Summary Discharge Rx Participant: No New Discharge Prescriptions: New Furosemide [Lasix] 40 mg PO BID@0900,1600 #60 tab Midodrine [ProAmatine] 10 mg PO TID@0900,1300,1700 #90 tab Continue DULoxetine HCL [Cymbalta] 60 mg PO DAILY Midodrine [ProAmatine] 5 mg PO TID@0900,1500,2100 Potassium Chloride ER [K-Dur 10] 10 meq PO DAILY #30 tab Vitamin D3(Unknown Dose) 1 tab PO DAILY carvediloL [Coreg] 3.125 mg PO BID-W/MEALS #60 tab Isosorbide Mononitrate ER [Imdur] 15 mg PO HS Albuterol Inhaler [Ventolin Hfa Inhaler] 2 puff INHALATION RT-Q6H PRN PRN Reason: Shortness Of Breath Simvastatin [Zocor] 20 mg PO HS Tamsulosin [Flomax] 0.4 mg PO DAILY Dapagliflozin Propanediol [Farxiga] 5 mg PO DAILY #30 tab Aspirin 81 mg PO DAILY Discharge Medication List carvediloL [Coreg] 3.125 mg PO BID-W/MEALS #60 tab 01/30/24 [Rx] Albuterol Inhaler [Ventolin Hfa Inhaler] 2 puff INHALATION RT-Q6H PRN 05/17/24 [History] DULoxetine HCL [Cymbalta] 60 mg PO DAILY 05/17/24 [History] Isosorbide Mononitrate ER [Imdur] 15 mg PO HS 05/17/24 [History] Midodrine [ProAmatine] 5 mg PO TID@0900,1500,2100 05/17/24 [History] Simvastatin [Zocor] 20 mg PO HS 05/17/24 [History] Tamsulosin [Flomax] 0.4 mg PO DAILY 05/17/24 [History] Dapagliflozin Propanediol [Farxiga] 5 mg PO DAILY #30 tab 05/25/24 [Rx] Potassium Chloride ER [K-Dur 10] 10 meq PO DAILY #30 tab 05/25/24 [Rx] Aspirin 81 mg PO DAILY 07/18/24 [History] Vitamin D3(Unknown Dose) 1 tab PO DAILY 07/18/24 [History] Furosemide [Lasix] 40 mg PO BID@0900,1600 #60 tab 07/22/24 [Rx] Midodrine [ProAmatine] 10 mg PO TID@0900,1300,1700 #90 tab 07/22/24 [Rx] Follow up Appointment(s)/Referral(s): [facility] [NON-STAFF] - As Needed ([facility] will call you to schedule your in home nursing, physical therapy, and occupational therapy visits. ) Patricio Banuelos DO [Primary Care Provider] - 1-2 days Activity/Diet/Wound Care/Special Instructions: Prescription given to interventional radiology for weekly paracentesis will reach out to patient. He will need to facilitate pickup and drop off through health insurance. Discharge Disposition: HOME SELF-CARE
[2024-07-22 16:56] LABS: Glucose,Whole Blood 146 mg/dL (70-110)
[2024-07-22 20:31] LABS: Glucose,Whole Blood 155 mg/dL (70-110)
[2024-07-22 21:58] VITALS: RESP 17
[2024-07-23 04:28] VITALS: BP 112/72; PULSE 76; TEMP 98
[2024-07-23 06:08] LABS: Glucose,Whole Blood 93 mg/dL (70-110)
[2024-07-23 11:37] LABS: Glucose,Whole Blood 117 mg/dL (70-110)
--- NOTE | 2024-07-23 19:11 | P.DS ---
Providers Date of admission: 07/18/24 15:41 Expected date of discharge: 07/23/24 Attending physician: Zay Pal Primary care physician: Patricio Banuelos [facility] Course: Discharge diagnoses; # CHF exacerbation, reduced EF 20 to 25% #Bilateral pleural effusions #Liver cirrhosis #Ascites # Essential hypertension #Uncontrolled Hyperglycemia #Diabetes mellitus, type 2 #Coronary artery disease #CKD stage IIIb Hospital course; Patient is stable for discharge to home. Will begin new prescription Lasix 40 mg twice daily, and increase dose midodrine 10 mg 3 times daily. A prescription was given to [facility] interventional radiology will call patient to set up weekly paracentesis. He will need to call insurance to facilitate rides to facility, as needed. He is to follow-up with his PCP, cardiology Dr. Gates for ICD placement and interventional radiology for paracentesis. History of present illness; Patient 58-year-old male with CHF, DM, hypertension, CKD stage IIIb, liver cirrhosis presenting with shortness of breath and lower extremity edema. Patient states shortness of breath has progressed this last week. Patient was scheduled for regular weekly paracentesis but has not had one in 6 weeks. Currently patient endorses some lower extremity pain. He does not use home Lasix. He denies fever, chills, chest pain, palpitations, abdominal pain, weakness. -Labs done in ER significant for WBC 3.2, hemoglobin 9.0, sodium 136, BUN 54, creatinine 2.26, glucose 158, total bilirubin 142. -EKG done in the ER independently interpreted showed sinus rhythm, heart rate of 95, no ST segment elevation or depression seen, no T-wave inversions seen. -Chest x-ray done independently interpreted in the ER showed cardiomegaly with vascular changes, bilateral pleural effusions During hospital course patient had paracentesis completed 12,380 mL removed. Given 50 g albumin postprocedure. He was seen by cardiology and medications were adjusted. PHYSICAL EXAMINATION: Vitals reviewed GENERAL: No acute distress. Obese. HEENT: Pupils are round and equally reacting to light. EOMI. No scleral icterus. Normocephalic, atraumatic. CARDIOVASCULAR: S1 and S2 present. No murmurs, rubs, or gallops. PULMONARY: Breathe sounds bilaterally, no wheezing, rhonchi, or crackles. ABDOMEN: Mildly hard, improved distension, normoactive bowel sounds. No palpable organomegaly. MUSCULOSKELETAL: No apparent joint swelling and deformities. EXTREMITIES: No apparent cyanosis, clubbing. 1+ pedal edema. NEUROLOGICAL: The patient is alert and oriented x3, Gross neurological examination did not reveal any focal deficits. SKIN: No apparent rashes. Dictation was produced using [employer] dictation software. please excuse any grammatical, word or spelling errors. Patient Condition at Discharge: Stable Plan - Discharge Summary Discharge Rx Participant: No New Discharge Prescriptions: New Furosemide [Lasix] 40 mg PO BID@0900,1600 #60 tab Midodrine [ProAmatine] 10 mg PO TID@0900,1300,1700 #90 tab Continue DULoxetine HCL [Cymbalta] 60 mg PO DAILY Midodrine [ProAmatine] 5 mg PO TID@0900,1500,2100 Potassium Chloride ER [K-Dur 10] 10 meq PO DAILY #30 tab Vitamin D3(Unknown Dose) 1 tab PO DAILY carvediloL [Coreg] 3.125 mg PO BID-W/MEALS #60 tab Isosorbide Mononitrate ER [Imdur] 15 mg PO HS Albuterol Inhaler [Ventolin Hfa Inhaler] 2 puff INHALATION RT-Q6H PRN PRN Reason: Shortness Of Breath Simvastatin [Zocor] 20 mg PO HS Tamsulosin [Flomax] 0.4 mg PO DAILY Dapagliflozin Propanediol [Farxiga] 5 mg PO DAILY #30 tab Aspirin 81 mg PO DAILY Discharge Medication List carvediloL [Coreg] 3.125 mg PO BID-W/MEALS #60 tab 01/30/24 [Rx] Albuterol Inhaler [Ventolin Hfa Inhaler] 2 puff INHALATION RT-Q6H PRN 05/17/24 [History] DULoxetine HCL [Cymbalta] 60 mg PO DAILY 05/17/24 [History] Isosorbide Mononitrate ER [Imdur] 15 mg PO HS 05/17/24 [History] Midodrine [ProAmatine] 5 mg PO TID@0900,1500,2100 05/17/24 [History] Simvastatin [Zocor] 20 mg PO HS 05/17/24 [History] Tamsulosin [Flomax] 0.4 mg PO DAILY 05/17/24 [History] Dapagliflozin Propanediol [Farxiga] 5 mg PO DAILY #30 tab 05/25/24 [Rx] Potassium Chloride ER [K-Dur 10] 10 meq PO DAILY #30 tab 05/25/24 [Rx] Aspirin 81 mg PO DAILY 07/18/24 [History] Vitamin D3(Unknown Dose) 1 tab PO DAILY 07/18/24 [History] Furosemide [Lasix] 40 mg PO BID@0900,1600 #60 tab 07/22/24 [Rx] Midodrine [ProAmatine] 10 mg PO TID@0900,1300,1700 #90 tab 07/22/24 [Rx] Follow up Appointment(s)/Referral(s): Nursing,[facility] [NON-STAFF] - As Needed ([facility] will call you to schedule your in home nursing, physical therapy, and occupational therapy visits. ) Gerson Gates DO [STAFF PHYSICIAN] - 1 Week (Office is closed at time of discharge. please call for follow-up appointment.) Patricio Banuelos DO [Primary Care Provider] - 07/29/24 1:00 pm Activity/Diet/Wound Care/Special Instructions: Prescription given to interventional radiology for weekly paracentesis will reach out to patient. He will need to facilitate pickup and drop off through health insurance. Discharge Disposition: HOME SELF-CARE
== END 2024-07-23 14:48 | disposition home or self-care (01) | DRG 194 ==
LOC: EC 11:35 → 4SSUR 15:41
PROVIDERS: ADMIT Hospitalist; ATTEND Hospitalist
PROC: 0W9G3ZZ Drainage of Peritoneal Cavity, Percutaneous Approach (ICD-10-PCS; principal; 2024-07-20)
DX: I13.0 Hypertensive heart and chronic kidney disease with heart failure and stage 1 through stage 4 chronic kidney disease, or unspecified chronic kidney disease (principal); I50.23 Acute on chronic systolic (congestive) heart failure; K74.60 Unspecified cirrhosis of liver; R18.8 Other ascites; E11.22 Type 2 diabetes mellitus with diabetic chronic kidney disease; E11.65 Type 2 diabetes mellitus with hyperglycemia; I25.10 Atherosclerotic heart disease of native coronary artery without angina pectoris; N18.32 Chronic kidney disease, stage 3b; E66.9 Obesity, unspecified; I25.5 Ischemic cardiomyopathy; E78.5 Hyperlipidemia, unspecified; I27.20 Pulmonary hypertension, unspecified; I45.10 Unspecified right bundle-branch block; F17.200 Nicotine dependence, unspecified, uncomplicated; Z79.899 Other long term (current) drug therapy; Z88.0 Allergy status to penicillin; Z79.82 Long term (current) use of aspirin; Z88.2 Allergy status to sulfonamides; Z68.41 Body mass index [BMI] 40.0-44.9, adult; Z91.119 Patient's noncompliance with dietary regimen due to unspecified reason; Z79.84 Long term (current) use of oral hypoglycemic drugs
CPT/HCPCS: 36415; 49083; 71045; 71046; 76705; 80048; 80053; 82150; 82945; 83605; 83735; 83880; 84157; 84484; 85025; 85027; 85610; 85730; 87070; 87205; 87636; 88108; 88305; 89050; 93005; 96374; 99285

== ENCOUNTER 2024-08-19 07:55 | Day surgery (SDC) | payer OTHER ==
[2024-08-19 08:36] LABS: Mean Platelet Volume 7.7; Platelet Count 146 k/uL (150-450)
[2024-08-19 08:44] VITALS: RESP 16; TEMP 98.1
[2024-08-19 08:52] LABS: African American GFR (CKD) 34 (>60 ml/min/1.73 sqM); Glucose 87 mg/dL (74-99); Non-African American GFR(CKD) 30 (>60 ml/min/1.73 sqM)
[2024-08-19 09:01] LABS: INR 1.1 (<1.2); Prothrombin Time 11.9 sec (10.0-12.5)
[2024-08-19] MEDS: ALBUMIN HUMAN 25% 50 ML in EMPTY BAG 1 BAG IVPB SCH (09:10)
[2024-08-19 11:38] VITALS: BP 99/68; PULSE 90
--- NOTE | 2024-08-19 12:51 | US ---
EXAMINATION TYPE: US paracentesis abd w/image DATE OF EXAM: August 19, 2024 COMPARISON: July 20, 2024 prior paracentesis. CLINICAL INDICATION:Male, 58 years old with history of Ascites; , ascites ATTENDING: Dr. Fortune PROCEDURE: Informed consent was obtained. The risks of the procedure were extensively explained incl uding risk of damage to surrounding bowel with perforation and need for additional procedures. Proced ure was performed in the ultrasound procedure suite. Ultrasound imaging of the abdomen demonstrate ascitic fluid. An appropriate access site was localized to the right lower abdomen. Timeout was taken per protocol. The skin was prepped and draped in the u sual sterile fashion and then locally anesthetized with 1% lidocaine. The peritoneal cavity was then accessed via a 5-Hebrew one-step needle/catheter. Approximately 08480 mL of clear straw-colored flu id was obtained. Patient tolerated procedure well without immediate complication. Hemostasis at the procedural site w as obtained with a sterile bandage placed. The patient was monitored in the holding area following th e procedure and was subsequently discharged in stable condition. IMPRESSION: Ultrasound guided paracentesis, with approximately 35869 mL of clear straw-colored fluid drained. No immediate complications were evident. [facility], , 08/19/2024 12:48 PM
== END 2024-08-19 10:55 | disposition home or self-care (01) ==
LOC: RADPROMAIN 07:55
DX: R18.8 Other ascites (principal)
CPT/HCPCS: 82565; 82947; 85049; 85610; 36415; 49083; P9047

== ENCOUNTER 2024-09-01 12:52 | Day surgery (SDC) | payer OTHER ==
[2024-09-01 13:34] VITALS: RESP 16; TEMP 98.1
[2024-09-01 13:42] LABS: Platelet Count 237 k/uL (150-450)
[2024-09-01 13:58] LABS: African American GFR (CKD) 38 (>60 ml/min/1.73 sqM); Glucose 84 mg/dL (74-99); Non-African American GFR(CKD) 33 (>60 ml/min/1.73 sqM)
[2024-09-01] MEDS: ALBUMIN HUMAN 25% 50 ML in EMPTY BAG 1 BAG IVPB SCH (14:13)
[2024-09-01 15:12] VITALS: BP 106/61; PULSE 80
--- NOTE | 2024-09-01 15:43 | US ---
EXAMINATION TYPE: US paracentesis abd w/image DATE OF EXAM: 09/01/2024 2:25 PM COMPARISON: prior paracentesis. CLINICAL INDICATION:Male, 59 years old with history of R18.8; , ascites ATTENDING: Dr. Antolin Valdovinos PROCEDURE: Informed consent was obtained. The risks of the procedure were extensively explained incl uding risk of damage to surrounding bowel with perforation and need for additional procedures. Proced ure was performed in the ultrasound procedure suite. Ultrasound imaging of the abdomen demonstrate as citic fluid. An appropriate access site was localized to the right lower abdomen. Timeout was taken p er protocol. The skin was prepped and draped in the usual sterile fashion and then locally anesthetiz ed with 1% lidocaine. The peritoneal cavity was then accessed via a 5-Prydeinig one-step needle/cathete r. Approximately 5300 mL of clear straw-colored fluid was obtained. Postprocedural imaging of the ab domen demonstrate a minimal amount of abdominal fluid. Patient tolerated procedure well without immediate complication. Hemostasis at the procedural site w as obtained with a sterile bandage placed. The patient was monitored in the holding area following th e procedure and had a controlled fall while going to the bathroom after the paracentesis. Patient was advised to be checked out in the ER.. IMPRESSION: Ultrasound guided paracentesis, with approximately 5300 mL of clear straw-colored fluid drained. No immediate complications were evident. [facility], , 09/01/2024 3:41 PM
== END 2024-09-01 16:05 | disposition home or self-care (01) ==
LOC: RADPROMAIN 12:52
DX: R18.8 Other ascites (principal)
CPT/HCPCS: 82565; 82947; 85049; 85610; 36415; 49083; P9047

== ENCOUNTER 2024-09-01 15:51 | Emergency (ER) | payer OTHER ==
[2024-09-01 16:09] VITALS: RESP 16; TEMP 98.1
[2024-09-01] MEDS: MIDODRINE 5 MG TAB PO STA (16:50)
[2024-09-01 16:59] LABS: HCT 30.4 % (39.0-53.0); HGB 9.8 gm/dL (13.0-17.5); MCHC 32.4 g/dL (31.0-37.0); Mean Platelet Volume 7.2; Platelet Count 200 k/uL (150-450); RBC 3.51 m/uL (4.30-5.90); RDW 15.1 % (11.5-15.5); WBC 2.2 k/uL (3.8-10.6)
[2024-09-01 17:10] LABS: ALT 8 U/L (4-49); AST 21 U/L (17-59); African American GFR (CKD) 41 (>60 ml/min/1.73 sqM); Albumin 3.8 g/dL (3.5-5.0); Alkaline Phosphatase 107 U/L (38-126); Anion Gap 6 mmol/L; Blood Urea Nitrogen 58 mg/dL (9-20); Calcium 9.2 mg/dL (8.4-10.2); Carbon Dioxide 39 mmol/L (22-30); Chloride 88 mmol/L (98-107); Glucose 77 mg/dL (74-99); Non-African American GFR(CKD) 36 (>60 ml/min/1.73 sqM); Potassium 3.2 mmol/L (3.5-5.1); Sodium 133 mmol/L (137-145); Total Bilirubin 1.9 mg/dL (0.2-1.3); Total Protein 7.1 g/dL (6.3-8.2)
[2024-09-01 17:14] LABS: MCV 86.4 fL (80.0-100.0)
[2024-09-01 17:18] LABS: NT-Pro-B-Type Natriuretic Pept 9060 pg/mL
--- NOTE | 2024-09-01 17:18 | ED ---
Fall HPI - General Chief Complaint: Fall Stated Complaint: Fall Time Seen by Provider: 09/01/24 16:05 Source: patient, RN/MD Mode of arrival: wheelchair - History of Present Illness Initial Comments: 59-year-old male with past medical history of congestive heart failure, liver failure who presents to the emergency department after a fall. Patient was getting a paracentesis upstairs. After his procedure was performed he ambulated to the bathroom where he sustained a fall. Patient states he was feeling very lightheaded. Denies losing consciousness. They did remove over 5 L of fluid. Patient states he has had several paracenteses in the past and never felt like this before. He denies hitting his head. Denies any injuries from the fall. No neck or back pain. No pain in his extremities. Patient still feels lightheaded at this time. Blood pressure notably low. Reports to a history of low blood pressure and states that he takes midodrine 3 times a day for his low blood pressure. Denies taking this medication today. Patient also has not had much to eat. He denies any additional symptoms to include chest pain, shortness of breath, nausea, vomiting, abdominal pain. No other alleviating, precipitating modifying factors - Related Data Home Medications Medication Instructions Recorded Confirmed Albuterol Inhaler [Ventolin Hfa 2 puff INHALATION RT-Q6H PRN 05/17/24 09/01/24 Inhaler] DULoxetine HCL [Cymbalta] 60 mg PO DAILY 05/17/24 09/01/24 Isosorbide Mononitrate ER [Imdur] 15 mg PO DAILY 05/17/24 09/01/24 Simvastatin [Zocor] 20 mg PO HS 05/17/24 09/01/24 Tamsulosin [Flomax] 0.4 mg PO DAILY 05/17/24 09/01/24 Aspirin 81 mg PO DAILY 07/18/24 09/01/24 Vitamin D3(Unknown Dose) 1 tab PO DIRECTED 07/18/24 09/01/24 Dulaglutide [Trulicity] 0.75 mg SQ SA 09/01/24 09/01/24 Furosemide [Lasix] 80 mg PO BID 09/01/24 09/01/24 Midodrine [ProAmatine] 5 mg PO TID-W/MEALS 09/01/24 09/01/24 metOLazone [Zaroxolyn] 5 mg PO DAILY 09/01/24 09/01/24 Previous Rx's Medication Instructions Recorded carvediloL [Coreg] 3.125 mg PO BID-W/MEALS #60 tab 01/30/24 Dapagliflozin Propanediol [Farxiga] 5 mg PO DAILY #30 tab 05/25/24 Potassium Chloride ER [K-Dur 10] 10 meq PO DAILY #30 tab 05/25/24 Allergies Allergy/AdvReac Type Severity Reaction Status Date / Time Penicillins Allergy Unknown Verified 09/01/24 17:14 Childhood Sulfa (Sulfonamide Allergy Rash/Hives Verified 09/01/24 17:14 Antibiotics) indomethacin AdvReac cannot Verified 09/01/24 17:14 take because it "thins his blood" Review of Systems ROS Statement: Those systems with pertinent positive or pertinent negative responses have been documented in the HPI. ROS Other: All systems not noted in ROS Statement are negative. Past Medical History Past Medical History: Heart Failure, Diabetes Mellitus, Eye Disorder, Hypertension, Liver Disease, Prostate Disorder, Renal Disease, Skin Disorder Additional Past Medical History / Comment(s): cataracts, prostate issues, recent admit 07/18/2024 for fluid overload. 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 Absent: scleral icterus, conjunctival injection, periorbital swelling ENT exam: Present: normal exam, mucous membranes moist Neck exam: Present: normal inspection. Absent: tenderness, meningismus, lymphadenopathy Respiratory exam: Present: normal lung sounds bilaterally. Absent: respiratory distress, wheezes, rales, rhonchi, stridor Cardiovascular Exam: Present: regular rate, normal rhythm, normal heart sounds. Absent: systolic murmur, diastolic murmur, rubs, gallop, clicks GI/Abdominal exam: Present: soft, normal bowel sounds. Absent: distended, tenderness, guarding, rebound, rigid Extremities exam: Present: normal inspection, full ROM, normal capillary refill. Absent: tenderness, pedal edema, joint swelling, calf tenderness Back exam: Present: normal inspection Neurological exam: Present: alert, oriented X3, CN II-XII intact Psychiatric exam: Present: normal affect, normal mood Skin exam: Present: warm, dry, intact, normal color. Absent: rash Course Vital Signs 09/01/24 09/01/24 09/01/24 15:59 16:15 16:18 Temperature 98.1 F Pulse Rate 84 Pulse Rate [ 83 Sitting] Pulse Rate [ Standing] Pulse Rate [ 82 Supine] Respiratory 16 Rate Blood Pressure 90/59 Blood Pressure 95/72 [Sitting] Blood Pressure [Standing] Blood Pressure 102/69 [Supine] O2 Sat by Pulse 99 97 98 Oximetry 09/01/24 09/01/24 16:21 17:27 Temperature Pulse Rate 82 Pulse Rate [ Sitting] Pulse Rate [ 90 Standing] Pulse Rate [ Supine] Respiratory Rate Blood Pressure 100/66 Blood Pressure [Sitting] Blood Pressure 88/60 [Standing] Blood Pressure [Supine] O2 Sat by Pulse 96 99 Oximetry Medical Decision Making - Medical Decision Making Was pt. sent in by a medical professional or institution ([facility], [facility] [employer] [facility], urgent care, hospital, or skilled nursing...) When possible be specific @ -[No] Did you speak to anyone other than the patient for history (EMS, parent, family, police, friend...)? What history was obtained from this source @ -[No] Did you review nursing and triage notes (agree or disagree)? Why? @ -[I reviewed and agree with nursing and triage notes] Were old charts reviewed (outside hosp., previous admission, EMS record, old EKG, old radiological studies, urgent care reports/EKG's, skilled nursing records)? Report findings @ -[No old charts were reviewed] Differential Diagnosis (chest pain, altered mental status, abdominal pain women, abdominal pain men, vaginal bleeding, weakness, fever, dyspnea, syncope, headache, dizziness, GI bleed, back pain, seizure, CVA, palpatations, mental health, musculoskeletal)? @ -[not applicable] EKG interpreted by me (3pts min.). @ -Yes and demonstrates sinus rhythm with a rate of 83. MN interval 202. QRS 125. QTc of 472. No acute ST segment elevations. Q-wave in lead III X-rays interpreted by me (1pt min.). @ -[None done] CT interpreted by me (1pt min.). @ -[None done] U/S interpreted by me (1pt. min.). @ -[None done] What testing was considered but not performed or refused? (CT, X-rays, U/S, labs)? Why? @ -[None] What meds were considered but not given or refused? Why? @ -[None] Did you discuss the management of the patient with other professionals (dennys singh i.e. , PA, [employer], lab, RT, psych nurse, social work supervisor, front desk agent, teacher, deportation officer, social work case manager)? Give summary @ -[No] Was smoking cessation discussed for >3mins.? @ -[No] Was critical care preformed (if so, how long)? @ -[No] Were there social determinants of health that impacted care today? How? (Homelessness, low income, unemployed, alcoholism, drug addiction, transportation, low edu. Level, literacy, decrease access to med. care, retirement, rehab)? @ -[No] Was there de-escalation of care discussed even if they declined (Discuss DNR or withdrawal of care, Hospice)? DNR status @ -[No] What co-morbidities impacted this encounter? (DM, HTN, Smoking, COPD, CAD, Cancer, CVA, ARF, Chemo, Hep., AIDS, mental health diagnosis, sleep apnea, morbid obesity)? @ -[None] Was patient admitted / discharged? Hospital course, mention meds given and route, prescriptions, significant lab abnormalities, going to OR and other pertinent info. @ -[hospital course] Undiagnosed new problem with uncertain prognosis? @ -[No] Drug Therapy requiring intensive monitoring for toxicity (Heparin, Nitro, Insulin, Cardizem)? @ -[No] Were any procedures done? @ -[No] Diagnosis/symptom? @ -[default] Acute, or Chronic, or Acute on Chronic? @ -[default] Uncomplicated (without systemic symptoms) or Complicated (systemic symptoms)? @ -[default] Side effects of treatment? @ -[No] Exacerbation, Progression, or Severe Exacerbation? @ -[No] Poses a threat to life or bodily function? How? (Chest pain, [place], [place], pneumonia, PE, COPD, DKA, ARF, appy, cholecystitis, CVA, Diverticulitis, Homicidal, Suicidal, threat to staff... and all critical care pts) @ -[No] - Lab Data Result diagrams: 09/01/24 16:30 09/01/24 16:30 Lab Results 09/01/24 09/01/24 Range/Units 16:30 16:30 WBC 2.2 L (3.8-10.6) k/uL RBC 3.51 L (4.30-5.90) m/uL Hgb 9.8 L (13.0-17.5) gm/dL Hct 30.4 L (39.0-53.0) % MCV 86.4 D (80.0-100.0) fL MCH 28.0 (25.0-35.0) pg MCHC 32.4 (31.0-37.0) g/dL RDW 15.1 (11.5-15.5) % Plt Count 200 (150-450) k/uL MPV 7.2 Neutrophils % (Manual) 60 % Band Neuts % (Manual) 4 % Lymphocytes % (Manual) 21 % Monocytes % (Manual) 10 % Eosinophils % (Manual) 5 % Neutrophils # (Manual) 1.40 (1.3-7.7) k/uL Lymphocytes # (Manual) 0.46 L (1.0-4.8) k/uL Monocytes # (Manual) 0.22 (0-1.0) k/uL Eosinophils # (Manual) 0.11 (0-0.7) k/uL Nucleated RBCs 0 (0-0) /100 WBC Differential Comment P Sodium 133 L (137-145) mmol/L Potassium 3.2 L (3.5-5.1) mmol/L Chloride 88 L (98-107) mmol/L Carbon Dioxide 39 H (22-30) mmol/L Anion Gap 6 mmol/L BUN 58 H (9-20) mg/dL Creatinine 2.01 H (0.66-1.25) mg/dL Est GFR (CKD-EPI)AfAm 41 (>60 ml/min/1.73 sqM) Est GFR (CKD-EPI)NonAf 36 (>60 ml/min/1.73 sqM) Glucose 77 (74-99) mg/dL Calcium 9.2 (8.4-10.2) mg/dL Total Bilirubin 1.9 H (0.2-1.3) mg/dL AST 21 (17-59) U/L ALT 8 (4-49) U/L Alkaline Phosphatase 107 (38-126) U/L NT-Pro-B Natriuret Pep 9060 pg/mL Total Protein 7.1 (6.3-8.2) g/dL Albumin 3.8 (3.5-5.0) g/dL Disposition Clinical Impression: Near syncope, Orthostatic hypotension Disposition: HOME SELF-CARE Condition: Stable Instructions (If sedation given, give patient instructions): Near Syncope (ED) Additional Instructions: Please take your midodrine as it is instructed. I would take another dose at 8 PM tonight even though I know all of your doses are supposed to be before 6 PM. This is just a one-time order for today. Follow-up with your doctor and return for any new or worsening symptoms Is patient prescribed a controlled substance at d/c from ED?: No Referrals: Patricio Banuelos DO [Primary Care Provider] - 1-2 days Time of Disposition: 18:55
[2024-09-01 18:02] LABS: Band Neutrophils % 4 %; Eosinophils # (M) 0.11 k/uL (0-0.7); Lymphocytes # (M) 0.46 k/uL (1.0-4.8); Monocytes # (M) 0.22 k/uL (0-1.0); Neutrophils % (M) 60 %; Nucleated Red Blood Cells 0 /100 WBC (0-0); Total Cells Counted 100
[2024-09-01 19:15] VITALS: BP 115/79; PULSE 86
== END 2024-09-01 19:15 | disposition home or self-care (01) ==
LOC: EC 15:51
DX: R55 Syncope and collapse (principal); Z86.79 Personal history of other diseases of the circulatory system; Z88.0 Allergy status to penicillin; Z88.2 Allergy status to sulfonamides; Z88.8 Allergy status to other drugs, medicaments and biological substances; W19.XXXA Unspecified fall, initial encounter
CPT/HCPCS: 36415; 80053; 83880; 85025; 93005; 99284

== ENCOUNTER 2024-10-20 08:09 | Day surgery (SDC) | payer OTHER ==
[2024-10-20 08:54] LABS: Platelet Count 271 k/uL (150-450)
[2024-10-20 08:59] LABS: INR 1.1 (<1.2); Prothrombin Time 11.9 sec (10.0-12.5)
[2024-10-20 09:10] LABS: African American GFR (CKD) 37 (>60 ml/min/1.73 sqM); Glucose 109 mg/dL (74-99); Non-African American GFR(CKD) 32 (>60 ml/min/1.73 sqM)
[2024-10-20] MEDS: ALBUMIN HUMAN 25% 50 ML in EMPTY BAG 1 BAG IVPB SCH (09:20)
[2024-10-20 09:50] VITALS: RESP 16; TEMP 98.6
[2024-10-20 10:30] VITALS: BP 105/72; PULSE 94
--- NOTE | 2024-10-20 11:29 | US ---
EXAMINATION TYPE: US paracentesis abd w/image DATE OF EXAM: October 20, 2024 COMPARISON: September 01, 2024 prior paracentesis. CLINICAL INDICATION:Male, 59 years old with history of R18.8; other ascites, ascites ATTENDING: Dr. Fortune PROCEDURE: Informed consent was obtained. The risks of the procedure were extensively explained incl uding risk of damage to surrounding bowel with perforation and need for additional procedures. Procedure was performed in the ultrasound procedure suite. Ultrasound imaging of the abdomen demonstr ate ascitic fluid. An appropriate access site was localized to the right lower abdomen. Timeout was t aken per protocol. The skin was prepped and draped in the usual sterile fashion and then locally anes thetized with 1% lidocaine. The peritoneal cavity was then accessed via a 5-Kinyarwanda one-step needle/c atheter. Approximately 60230 mL of clear straw-colored fluid was obtained. Patient tolerated procedure well without immediate complication. Hemostasis at the procedural site w as obtained with a sterile bandage placed. The patient was monitored in the holding area following th e procedure and was subsequently discharged in stable condition. IMPRESSION: Ultrasound guided therapeutic paracentesis, with approximately 32029 mL of clear straw-colored fluid drained. No immediate complications were evident. [facility], , 10/20/2024 11:27 AM
== END 2024-10-20 11:15 | disposition home or self-care (01) ==
LOC: RADPROMAIN 08:09
DX: R18.8 Other ascites (principal)
CPT/HCPCS: 82565; 82947; 85049; 85610; 36415; 49083; P9047

== ENCOUNTER 2024-10-25 11:57 | Observation (INO) | payer OTHER ==
--- NOTE | 2024-10-25 12:14 | ED ---
General Adult HPI - General Source: patient, EMS, RN notes reviewed Mode of arrival: wheelchair Limitations: no limitations <Ángela Goyal - Last Filed: 10/25/24 12:13> - General Source: patient, RN notes reviewed, old records reviewed <Kei Lugo - Last Filed: 10/25/24 17:14> - General Stated complaint: diff breathing Time Seen by Provider: 10/25/24 12:13 - History of Present Illness Initial comments: Quick note: 59-year-old male presented to ER for evaluation of shortness of breath. Patient reports a history of CHF and kidney failure and he is on multiple diuretics. For the past week he has had an increase in shortness of breath and fluid retention. No chest pain. (Ángela Goyal) Patient is a 59-year-old male originally seen as a quick note. Has a history of heart failure, diabetes, hypertension, renal disease. States he has been noncompliant with cardiac diet. States he has increased sodium intake but has also noticed increased lower extremity edema, abdominal edema. Believes it is CHF. Endorses worsening exertional dyspnea. Denies nonproductive cough. Does endorse some worsening orthopnea. Denies any chest pain or abdominal pain. Denies any nausea or vomiting. States he has been compliant with his Lasix. He has no other acute complaints at this time. Denies fevers, chills, cough. (Kei Lugo) - Related Data Home Medications Medication Instructions Recorded Confirmed Albuterol Inhaler [Ventolin Hfa 2 puff INHALATION RT-Q6H PRN 05/17/24 10/20/24 Inhaler] DULoxetine HCL [Cymbalta] 60 mg PO DAILY 05/17/24 10/20/24 Isosorbide Mononitrate ER [Imdur] 15 mg PO DAILY 05/17/24 10/20/24 Simvastatin [Zocor] 20 mg PO HS 05/17/24 10/20/24 Tamsulosin [Flomax] 0.4 mg PO DAILY 05/17/24 10/20/24 Aspirin 81 mg PO DAILY 07/18/24 10/20/24 Vitamin D3(Unknown Dose) 1 tab PO DIRECTED 07/18/24 10/20/24 Dulaglutide [Trulicity] 0.75 mg SQ SA 09/01/24 10/20/24 Furosemide [Lasix] 80 mg PO BID 09/01/24 10/20/24 Midodrine [ProAmatine] 5 mg PO TID-W/MEALS 09/01/24 10/20/24 metOLazone [Zaroxolyn] 5 mg PO DAILY 09/01/24 10/20/24 Previous Rx's Medication Instructions Recorded carvediloL [Coreg] 3.125 mg PO BID-W/MEALS #60 tab 01/30/24 Dapagliflozin Propanediol [Farxiga] 5 mg PO DAILY #30 tab 05/25/24 Potassium Chloride ER [K-Dur 10] 10 meq PO DAILY #30 tab 05/25/24 Allergies Allergy/AdvReac Type Severity Reaction Status Date / Time Penicillins Allergy Unknown Verified 10/25/24 12:26 Childhood Sulfa (Sulfonamide Allergy Rash/Hives Verified 10/25/24 12:26 Antibiotics) indomethacin AdvReac cannot Verified 10/25/24 12:26 take because it "thins his blood" Review of Systems ROS Other: All systems not noted in ROS Statement are negative. <Ángela Goyal - Last Filed: 10/25/24 12:13> ROS Other: All systems not noted in ROS Statement are negative. <Kei Lugo - Last Filed: 10/25/24 17:14> ROS Statement: Those systems with pertinent positive or pertinent negative responses have been documented in the HPI. Review of Systems: CONST: Denies fever EYES: Denies blurry vision ENT: Denies nasal congestion C/V: Denies Chest pain RESP: Endorses shortness of breath GI: Denies abdominal pain : Denies dysuria SKIN: Denies rash. MSK: Denies joint pain. NEURO: Denies headache (Kei Lugo) Past Medical History Past Medical History: Heart Failure, Diabetes Mellitus, Eye Disorder, Hypertension, Liver Disease, Prostate Disorder, Renal Disease, Skin Disorder Additional Past Medical History / Comment(s): cataracts, prostate issues, recent admit 07/18/2024 for fluid overload. 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 Past Anesthesia/Blood Transfusion Reactions: No Reported Reaction Past Psychological History: Anxiety, Depression Smoking Status: Never smoker Past Alcohol Use History: None Reported Additional Past Alcohol Use History / Comment(s): quit drinking - 2022 Past Drug Use History: Marijuana Additional Drug Use History / Comment(s): patient doesn't smoke cigarettes but occassionally smokes marijuana - Past Family History Father Family Medical History: Liver Disease Additional Family Medical History / Comment(s): non alcoholic cirrhosis <Ángela Goyal - Last Filed: 10/25/24 12:13> General Exam <Ángela Goyal - Last Filed: 10/25/24 12:13> <Kei Lugo - Last Filed: 10/25/24 17:14> - General Exam Comments Initial Comments: Visual Physical Exam Vital signs reviewed General: Well-appearing, nontoxic, no acute distress. Head: Normocephalic, atraumatic Eyes: PERRLA, EOMI ENT: Airway patent Chest: Nonlabored breathing Skin: No visual rash, normal skin tone Neuro: Alert and oriented 3 Musculoskeletal: No gross abnormalities (Ángela Goyal) General: Appears in no acute distress. HEAD: Normal with no signs of head trauma. EYES: PERRLA, EOMI, conjunctiva normal, no discharge. ENT: Hearing grossly intact, normal oropharynx. RESPIRATORY: Clear breath sounds bilaterally. No wheezes, rales, or rhonchi. C/V: Regular rate and rhythm. S1 and S2 auscultated, 3+ pitting edema in bilateral lower extremities., peripheral pulses 2+ and intact throughout ABD: Abd is soft, nontender, nondistended. Abdominal edema. EXT: Normal range of motion, no obvious deformity SKIN: No rashes or lesions observed on exposed skin. NEURO: Alert and oriented x 4. (Kei Lugo) Course Vital Signs 10/25/24 10/25/24 12:23 17:09 Temperature 97.8 F Pulse Rate 82 81 Respiratory 18 20 Rate Blood Pressure 100/67 101/79 O2 Sat by Pulse 100 100 Oximetry Medical Decision Making <Ángela Goyal - Last Filed: 10/25/24 12:13> - Lab Data Result diagrams: 10/25/24 13:22 10/25/24 13:22 - EKG Data -: EKG Interpreted by Me <Kei Lugo - Last Filed: 10/25/24 17:14> - Medical Decision Making I performed the quick note portion of this chart. Electronically signed by Ángela Goyal PA-C (Ángela Goyal) Was pt. sent in by a medical professional or institution ([facility], [facility], urgent care, hospital, or care home...) When possible be specific @ -No Did you speak to anyone other than the patient for history (EMS, parent, family, police, friend...)? What history was obtained from this source @ -No Did you review nursing and triage notes (agree or disagree)? Why? @ -I reviewed and agree with nursing and triage notes Were old charts reviewed (outside hosp., previous admission, EMS record, old EKG, old radiological studies, urgent care reports/EKG's, care home records)? Report findings @ -Medication list reviewed which does show patient is on twice daily Lasix outpatient. Reviewed prior EKG from August 2024 with no significant acute change. Differential Diagnosis (chest pain, altered mental status, abdominal pain women, abdominal pain men, vaginal bleeding, weakness, fever, dyspnea, syncope, headache, dizziness, GI bleed, back pain, seizure, CVA, palpatations, mental health, musculoskeletal)? @ -Differential Dyspnea: Coronary syndrome, arrhythmia, tamponade, asthma, COPD, pulmonary embolism, pneumonia, pneumothorax, pulmonary effusion, anaphylaxis, diabetic ketoacidosis, flailed chest, pulmonary contusion, diaphragmatic rupture, anemia, neuromuscular, this is not meant to be an all-inclusive list. EKG interpreted by me (3pts min.). @ -As above X-rays interpreted by me (1pt min.). @ -Chest x-ray shows bilateral pleural effusions with CHF findings of pulmonary vascular congestion. CT interpreted by me (1pt min.). @ -None done U/S interpreted by me (1pt. min.). @ -None done What testing was considered but not performed or refused? (CT, X-rays, U/S, labs)? Why? @ -None What meds were considered but not given or refused? Why? @ -None Did you discuss the management of the patient with other professionals (professionals i.e. [facility], [facility], lab, RT, psych nurse, social service technician, general service officer, teacher, chief program officer, protective services case worker)? Give summary @ -Discussed with admitting provider, Dr. Lazaro who accepted the admission. PCP is listed as Dr. Ramos admits to [facility] Was smoking cessation discussed for >3mins.? @ -No Was critical care preformed (if so, how long)? @ -No Were there social determinants of health that impacted care today? How? (Homelessness, low income, unemployed, alcoholism, drug addiction, transportation, low edu. Level, literacy, decrease access to med. care, long-term, rehab)? @ -No Was there de-escalation of care discussed even if they declined (Discuss DNR or withdrawal of care, Hospice)? DNR status @ -No What co-morbidities impacted this encounter? (DM, HTN, Smoking, COPD, CAD, Cancer, CVA, ARF, Chemo, Hep., AIDS, mental health diagnosis, sleep apnea, morbid obesity)? @ -CHF Was patient admitted / discharged? Hospital course, mention meds given and route, prescriptions, significant lab abnormalities, going to OR and other pertinent info. @ -Patient presents with what appears to be a CHF exacerbation. Chest x-ray shows pleural effusions and pulmonary vascular congestion. Labs relatively u nremarkable. Chronic anemia, CKD with stable BUN and creatinine at baseline. BNP is elevated to 22,000. Viral swabs negative. EKG unremarkable. I discussed results with the patient. As he is clinically and symptomatically having CHF exacerbation with elevated BNP we will admit for IV diuretics. Placed on 40 mg IV Lasix twice daily and given additional dose currently. He will be admitted with cardiology consult. He was in agreement this plan. Vital signs are within acceptable limits at time of admission. I spoke with admitting provider, Dr. Lazaro. PCP is listed as Dr. Ramos admits to [facility] Undiagnosed new problem with uncertain prognosis? @ -No Drug Therapy requiring intensive monitoring for toxicity (Heparin, Nitro, Insulin, Cardizem)? @ -No Were any procedures done? @ -No Diagnosis/symptom? @ -CHF exacerbation Acute, or Chronic, or Acute on Chronic? @ -Acute on chronic Uncomplicated (without systemic symptoms) or Complicated (systemic symptoms)? @ -Complicated Side effects of treatment? @ -No Exacerbation, Progression, or Severe Exacerbation? @ -Exacerbation Poses a threat to life or bodily function? How? (Chest pain, USA, DC, pneumonia, PE, COPD, DKA, ARF, appy, cholecystitis, CVA, Diverticulitis, Homicidal, Suicidal, threat to staff... and all critical care pts) @ -Yes (Kei Lugo) - Lab Data Lab Results 10/25/24 10/25/24 10/25/24 Range/Units 13:22 13:22 13:22 WBC 2.3 L (3.8-10.6) k/uL RBC 2.96 L (4.30-5.90) m/uL Hgb 8.3 L D (13.0-17.5) gm/dL Hct 26.5 L (39.0-53.0) % MCV 89.4 (80.0-100.0) fL MCH 28.1 (25.0-35.0) pg MCHC 31.5 (31.0-37.0) g/dL RDW 15.6 H (11.5-15.5) % Plt Count 336 (150-450) k/uL MPV 7.1 Neutrophils % (Manual) 59 % Lymphocytes % (Manual) 28 % Monocytes % (Manual) 13 % Other Cells % [facility] Neutrophils # (Manual) 1.36 (1.3-7.7) k/uL Lymphocytes # (Manual) 0.64 L (1.0-4.8) k/uL Monocytes # (Manual) 0.30 (0-1.0) k/uL Nucleated RBCs 0 (0-0) /100 WBC Differential Comment Manual Slide Review Performed Reactive Lymphocytes Present Toxic Vacuolation Hypochromasia Marked PT 11.0 (10.0-12.5) sec INR 1.0 (<1.2) APTT 24.3 (22.0-30.0) sec Sodium 130 L (137-145) mmol/L Potassium 5.0 (3.5-5.1) mmol/L Chloride 99 (98-107) mmol/L Carbon Dioxide 23 (22-30) mmol/L Anion Gap 8 mmol/L BUN 52 H (9-20) mg/dL Creatinine 2.20 H (0.66-1.25) mg/dL Est GFR (CKD-EPI)AfAm 37 (>60 ml/min/1.73 sqM) Est GFR (CKD-EPI)NonAf 32 (>60 ml/min/1.73 sqM) Glucose 108 H (74-99) mg/dL Plasma Lactic Acid Kem (0.7-2.0) mmol/L Calcium 8.6 (8.4-10.2) mg/dL Magnesium 2.2 (1.6-2.3) mg/dL Total Bilirubin 1.5 H (0.2-1.3) mg/dL AST 26 (17-59) U/L ALT 12 (4-49) U/L Alkaline Phosphatase 116 (38-126) U/L Troponin I (0.000-0.034) ng/mL NT-Pro-B Natriuret Pep 55128 pg/mL Total Protein 6.9 (6.3-8.2) g/dL Albumin 3.3 L (3.5-5.0) g/dL Influenza Type A (PCR) (Not Detectd) Influenza Type B (PCR) (Not Detectd) RSV (PCR) (Not Detectd) SARS-CoV-2 (PCR) (Not Detectd) 10/25/24 10/25/24 10/25/24 Range/Units 13:22 13:22 13:22 WBC (3.8-10.6) k/uL RBC (4.30-5.90) m/uL Hgb (13.0-17.5) gm/dL Hct (39.0-53.0) % MCV (80.0-100.0) fL MCH (25.0-35.0) pg MCHC (31.0-37.0) g/dL RDW (11.5-15.5) % Plt Count (150-450) k/uL MPV Neutrophils % (Manual) % Lymphocytes % (Manual) % Monocytes % (Manual) % Other Cells % Neutrophils # (Manual) (1.3-7.7) k/uL Lymphocytes # (Manual) (1.0-4.8) k/uL Monocytes # (Manual) (0-1.0) k/uL Nucleated RBCs (0-0) /100 WBC Differential Comment Manual Slide Review Reactive Lymphocytes Toxic Vacuolation Hypochromasia PT (10.0-12.5) sec INR (<1.2) APTT (22.0-30.0) sec Sodium (137-145) mmol/L Potassium (3.5-5.1) mmol/L Chloride (98-107) mmol/L Carbon Dioxide (22-30) mmol/L Anion Gap mmol/L BUN (9-20) mg/dL Creatinine (0.66-1.25) mg/dL Est GFR (CKD-EPI)AfAm (>60 ml/min/1.73 sqM) Est GFR (CKD-EPI)NonAf (>60 ml/min/1.73 sqM) Glucose (74-99) mg/dL Plasma Lactic Acid Kem 1.0 (0.7-2.0) mmol/L Calcium (8.4-10.2) mg/dL Magnesium (1.6-2.3) mg/dL Total Bilirubin (0.2-1.3) mg/dL AST (17-59) U/L ALT (4-49) U/L Alkaline Phosphatase (38-126) U/L Troponin I 0.019 (0.000-0.034) ng/mL NT-Pro-B Natriuret Pep pg/mL Total Protein (6.3-8.2) g/dL Albumin (3.5-5.0) g/dL Influenza Type A (PCR) Not Detected (Not Detectd) Influenza Type B (PCR) Not Detected (Not Detectd) RSV (PCR) Not Detected (Not Detectd) SARS-CoV-2 (PCR) Not Detected (Not Detectd) - EKG Data EKG Comments: 12-lead Electrocardiogram Interpretation Note EKG was reviewed and interpreted by myself. 12-lead ECG performed at 1317 is interpreted by me as revealing normal sinus rhythm at a rate of 79 beats per minute. Lake is normal. Incomplete right bundle branch block morphology. [place] interval is 213 ms, QRS duration is 113 ms, QTc is 438 ms.. There were no ST or T wave abnormalities to suggest myocardial ischemia or injury. R wave progression across the precordium was satisfactory. By my interpretation this EKG is non-diagnostic for acute ischemia. (Kei Lugo) Disposition <Ángela Goyal - Last Filed: 10/25/24 12:13> Time of Disposition: 17:00 <Kei Lugo - Last Filed: 10/25/24 17:14> Clinical Impression: CHF (congestive heart failure) Disposition: ADMITTED IP TO THIS HOSP Condition: Stable Referrals: None,Stated [REFERRING] - 1-2 days
--- NOTE | 2024-10-25 12:50 | XR ---
EXAMINATION TYPE: XR chest 2V DATE OF EXAM: 10/25/2024 12:47 PM COMPARISON: Chest radiographs from 07/19/2024. CLINICAL INDICATION: Male, 59 years old with history of difficulty breathing; [facility] TECHNIQUE: XR chest 2V Frontal and lateral views of the chest. FINDINGS: Lungs/Pleura: Decrease in right pleural effusion now suspected to be small versus different positioni ng patient was semiupright prior. There may be mild blunting of the left costophrenic angle. Pulmonary vascularity: Pulmonary vascular congestion. Heart/mediastinum: Cardiomediastinal silhouette is unremarkable. Musculoskeletal: No acute osseous pathology. Other findings: None Lines/Tubes: IMPRESSION: Small right pleural effusion has decreased from 07/19/2025. Trace left pleural effusion suggested. Mi ld pulmonary vessel congestion. [facility], , 10/25/2024 12:48 PM
[2024-10-25 13:26] LABS: HCT 26.5 % (39.0-53.0); Hypochromasia Marked; MCH 28.1 pg (25.0-35.0); MCHC 31.5 g/dL (31.0-37.0); MCV 89.4 fL (80.0-100.0); Mean Platelet Volume 7.1; Platelet Count 336 k/uL (150-450); RBC 2.96 m/uL (4.30-5.90); RDW 15.6 % (11.5-15.5); WBC 2.3 k/uL (3.8-10.6)
[2024-10-25 13:38] LABS: ALT 12 U/L (4-49); AST 26 U/L (17-59); African American GFR (CKD) 37 (>60 ml/min/1.73 sqM); Albumin 3.3 g/dL (3.5-5.0); Alkaline Phosphatase 116 U/L (38-126); Anion Gap 8 mmol/L; Blood Urea Nitrogen 52 mg/dL (9-20); Calcium 8.6 mg/dL (8.4-10.2); Carbon Dioxide 23 mmol/L (22-30); Chloride 99 mmol/L (98-107); Glucose 108 mg/dL (74-99); Magnesium 2.2 mg/dL (1.6-2.3); Non-African American GFR(CKD) 32 (>60 ml/min/1.73 sqM); Sodium 130 mmol/L (137-145); Total Bilirubin 1.5 mg/dL (0.2-1.3); Total Protein 6.9 g/dL (6.3-8.2)
[2024-10-25 13:39] LABS: HGB 8.3 gm/dL (13.0-17.5)
[2024-10-25 13:43] LABS: Partial Thromboplastin Time 24.3 sec (22.0-30.0)
[2024-10-25 13:45] LABS: NT-Pro-B-Type Natriuretic Pept 22200 pg/mL
[2024-10-25 14:01] LABS: Influenza A Not Detected (Not Detectd); Influenza B Not Detected (Not Detectd); RSV Not Detected (Not Detectd)
[2024-10-25 15:40] LABS: Lymphocytes # (M) 0.64 k/uL (1.0-4.8); Neutrophils # (M) 1.36 k/uL (1.3-7.7); Neutrophils % (M) 59 %; Nucleated Red Blood Cells 0 /100 WBC (0-0); Total Cells Counted 100
[2024-10-25 15:45] LABS: Reactive Lymphocytes Present
[2024-10-25] MEDS ORDERED: NALOXONE 0.4 MG/ML 1 ML VIAL IV PRN (17:15)
[2024-10-25] MEDS: FUROSEMIDE 10 MG/ML 4 ML VIAL IV STA (18:28)
[2024-10-25] MEDS ORDERED: ALBUTEROL NEBULIZED 2.5 MG/3 ML INHALATION PRN (20:40)
[2024-10-25] MEDS ORDERED: DEXTROSE 50% SYRINGE 50 ML IVP PRN ×2 (20:47)
[2024-10-25 20:52] LABS: Glucose,Whole Blood 164 mg/dL (70-110)
[2024-10-25] MEDS: INSULIN LISPRO (HumaLOG) 100 UNIT/ML 10 mL VL SQ SCH (21:32)
[2024-10-25] MEDS: carvediloL 3.125 MG TAB PO SCH (21:33)
[2024-10-25] MEDS: DAPAGLIFLOZIN PROPANEDIOL 5 MG TABLET PO SCH (21:33)
[2024-10-25] MEDS: ATORVASTATIN 10 MG TAB PO SCH (21:33)
[2024-10-25] MEDS: ASPIRIN 81 MG PO SCH (21:33)
[2024-10-26 06:06] LABS: Glucose,Whole Blood 109 mg/dL (70-110)
[2024-10-26 08:26] LABS: HCT 26.7 % (39.6-50.0); MCH 27.7 pg (27.0-32.0); MCV 92.4 FL (80.0-97.0); Mean Platelet Volume 8.5 FL (9.5-12.2); NRBC Per 100 WBC 0 X 10*3/uL (0.00-0.01); Platelet Count 300 X 10*3/uL (140-440); RBC 2.89 X 10*6/uL (4.40-5.60)
[2024-10-26] MEDS: MIDODRINE 5 MG TAB PO SCH (08:33)
[2024-10-26] MEDS: TAMSULOSIN 0.4 MG CAP.ER.24H PO SCH (08:34)
[2024-10-26] MEDS: ISOSORBIDE MONONITRATE ER 15 MG TAB PO SCH (08:34)
[2024-10-26] MEDS: DULoxetine HCL 60 MG CAPSULE.DR PO SCH (08:34)
[2024-10-26] MEDS: FUROSEMIDE 10 MG/ML 4 ML VIAL IV SCH (08:34)
[2024-10-26] MEDS: metOLazone 5 MG TAB PO SCH (08:34)
[2024-10-26] MEDS: POTASSIUM CHLORIDE ER 10 MEQ TAB.ER.PRT PO SCH (08:35)
--- NOTE | 2024-10-26 08:59 | P.CRDCN ---
History of Present Illness History of present illness: HISTORY OF PRESENT ILLNESS: This is a 58-year-old male with a past medical history significant for congestive heart failure, coronary artery disease, chronic kidney disease, hypertension, hyperlipidemia, diabetes, cardiomegaly, and obesity. Patient follows in the office with Dr. Gates. We have been asked to see the patient in consultation for CHF. Patient examined at the bedside. Patient presented to the hospital with a chief complaint of shortness of breath. Patient states he has also noticed increased lower extremity swelling. He denies any chest pain or pressure. Patient states he has not been compliant with his medications on an outpatient basis. Additionally, the patient made remarks of being suicidal. Psychiatry is consulted. There is a safety teacher at the bedside. DIAGNOSTICS: - EKG reveals sinus mechanism with incomplete right bundle branch block - Chest xray small right pleural effusion decreased from 07/19/2025. Trace left pleural effusion suggested. Mild pulmonary vascular congestion - Laboratory data: WBC 2.10. Hemoglobin 8.0. Platelet count 300. Sodium 130. Potassium 5.0. BUN 52. Creatinine 2.2. Troponin negative x 1. proBNP 22,200. - Current home cardiac medications include Zaroxolyn 5 mg daily, carvedilol 3.125 mg twice a day, simvastatin 20 mg at night, midodrine 5 mg 3 times daily with meals, Imdur 15 mg daily, Lasix 40 mg twice a day, Farxiga 5 mg daily, aspirin 81 mg twice a day - Most recent echocardiogram obtained in May 2024 reveals EF 20 to 25%, global hypokinesis, moderate pulmonary hypertension, moderate MR, mild to moderate TR -Patient underwent Lexiscan stress test in January 2024 revealing large area of previous inferior wall infarct. Possible minimal dale-infarct ischemia at the apex. Transient ischemic dilatation ratio was elevated. - Cardiac catheterization history: September 2023 revealing three-vessel coronary artery disease with chronic occlusion of the right coronary artery and significant disease involving the circumflex coronary artery and diffuse disease involving the LAD. Medical management was recommended REVIEW OF SYSTEMS: At the time of my exam: CONSTITUTIONAL: Denies fever or chills. HEENT: Denies blurred vision, vision changes, or eye pain. Denies hemoptysis CARDIOVASCULAR: Denies chest pain. Denies orthopnea. Denies PND. Denies palpitations RESPIRATORY: Denies shortness of breath. GASTROINTESTINAL: Denies abdominal pain. Denies nausea or vomiting. HEMATOLOGIC: Denies bleeding disorders. GENITOURINARY: Denies any blood in urine. SKIN: Denies pruitis. Denies rash. PHYSICAL EXAM: VITAL SIGNS: Reviewed. GENERAL: Well-developed in no acute distress. HEENT: Head is normocephalic. Pupils are equal, round. Sclerae anicteric. Mucous membranes of the mouth are moist. Neck supple. No JVD or thyromegaly LUNGS: Respirations even and unlabored. Lungs diminished bilaterally HEART: Regular rate and rhythm. S1 and S2 heard. ABDOMEN: Soft. Nondistended. Nontender. EXTREMITIES: Normal range of motion. No clubbing or cyanosis. Peripheral pulses intact. 1+ bilateral lower extremity edema NEUROLOGIC: Awake and alert. Oriented x 3. 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 and significant disease involving circumflex and LAD Ischemic cardiomyopathy, on LifeVest earlier this year, previously declining ICD Hypertension Hyperlipidemia Diabetes Obesity: BMI 36.1 Moderate pulmonary hypertension History of multiple paracentesis with removal of 12 L of fluid, 10/20/2024 PLAN: No need to repeat echocardiogram as this was performed in May 2024 Resume home cardiac medications Continue IV Lasix 40 mg every 12 hours Daily weights, accurate intake and output, and monitoring of kidney function Reinforced low-sodium diet and medication compliance with patient Psychiatry consulted for suicidal ideation. Await evaluation. Further recommendations pending patient course Nurse practitioner note has been reviewed by physician. Signing provider agrees with the documented findings, assessment, and plan of care documented by COAL DELIVERER as a scribe. Past Medical History Past Medical History: Heart Failure, Diabetes Mellitus, Eye Disorder, Hypertension, Liver Disease, Prostate Disorder, Renal Disease, Skin Disorder Additional Past Medical History / Comment(s): cataracts, prostate issues, recent admit 07/18/2024 for fluid overload. 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 Past Anesthesia/Blood Transfusion Reactions: No Reported Reaction Past Psychological History: Anxiety, Depression Smoking Status: Never smoker Past Alcohol Use History: Heavy Additional Past Alcohol Use History / Comment(s): quit drinking - 2022 Past Drug Use History: Marijuana Additional Drug Use History / Comment(s): patient doesn't smoke cigarettes but occassionally smokes marijuana - Past Family History Father Family Medical History: Liver Disease Additional Family Medical History / Comment(s): non alcoholic cirrhosis Mother Family Medical History: COPD Medications and Allergies Home Medications Medication Instructions Recorded Confirmed Type carvediloL [Coreg] 3.125 mg PO BID-W/MEALS #60 tab 01/30/24 10/25/24 Rx Albuterol Inhaler [Ventolin Hfa 2 puff INHALATION RT-Q6H PRN 05/17/24 10/25/24 History Inhaler] DULoxetine HCL [Cymbalta] 60 mg PO DAILY 05/17/24 10/25/24 History Isosorbide Mononitrate ER [Imdur] 15 mg PO DAILY 05/17/24 10/25/24 History Simvastatin [Zocor] 20 mg PO HS 05/17/24 10/25/24 History Tamsulosin [Flomax] 0.4 mg PO DAILY 05/17/24 10/25/24 History Dapagliflozin Propanediol [Farxiga] 5 mg PO DAILY #30 tab 05/25/24 10/25/24 Rx Potassium Chloride ER [K-Dur 10] 10 meq PO DAILY #30 tab 05/25/24 10/25/24 Rx Aspirin 81 mg PO BID 07/18/24 10/25/24 History Vitamin D3(Unknown Dose) 1 tab PO DIRECTED 07/18/24 10/25/24 History Dulaglutide [Trulicity] 0.75 mg SQ SA 09/01/24 10/25/24 History Midodrine [ProAmatine] 5 mg PO TID-W/MEALS 09/01/24 10/25/24 History metOLazone [Zaroxolyn] 5 mg PO DAILY 09/01/24 10/25/24 History Furosemide [Lasix] 40 mg PO BID 10/25/24 10/25/24 History Mupirocin 2% Oint [Bactroban 2% 1 applic TOPICAL TID 10/25/24 10/25/24 History Oint] Allergies Allergy/AdvReac Type Severity Reaction Status Date / Time Penicillins Allergy Unknown Verified 10/25/24 17:22 Childhood Sulfa (Sulfonamide Allergy Rash/Hives Verified 10/25/24 17:22 Antibiotics) indomethacin AdvReac cannot Verified 10/25/24 17:22 take because it "thins his blood" Physical Exam Vitals: Vital Signs Temp Pulse Pulse Pulse Resp BP BP 10/26/24 01:30 98.5 F 83 18 106/69 10/25/24 20:00 93 18 113/78 10/25/24 18:26 85 20 113/79 10/25/24 17:09 81 20 101/79 10/25/24 12:23 97.8 F 82 18 100/67 Pulse Ox 10/26/24 01:30 100 10/25/24 20:00 95 10/25/24 18:26 100 10/25/24 17:09 100 10/25/24 12:23 100 Intake and Output 10/25/24 10/26/24 10/26/24 22:59 06:59 14:59 Output Total 200 200 Balance -200 -200 Output: Urine 200 200 Other: Voiding Method Urinal Weight 107.6 kg Results 10/26/24 05:21 10/25/24 13:22 Cardiac Enzymes 10/25/24 10/25/24 Range/Units 13:22 13:22 AST 26 (17-59) U/L Troponin I 0.019 (0.000-0.034) ng/mL Coagulation 10/25/24 Range/Units 13:22 PT 11.0 (10.0-12.5) sec APTT 24.3 (22.0-30.0) sec CBC 10/25/24 Range/Units 13:22 WBC 2.3 L (3.8-10.6) k/uL RBC 2.96 L (4.30-5.90) m/uL Hgb 8.3 L D (13.0-17.5) gm/dL Hct 26.5 L (39.0-53.0) % Plt Count 336 (150-450) k/uL Comprehensive Metabolic Panel 10/25/24 Range/Units 13:22 Sodium 130 L (137-145) mmol/L Potassium 5.0 (3.5-5.1) mmol/L Chloride 99 (98-107) mmol/L Carbon Dioxide 23 (22-30) mmol/L BUN 52 H (9-20) mg/dL Creatinine 2.20 H (0.66-1.25) mg/dL Glucose 108 H (74-99) mg/dL Calcium 8.6 (8.4-10.2) mg/dL AST 26 (17-59) U/L ALT 12 (4-49) U/L Alkaline Phosphatase 116 (38-126) U/L Total Protein 6.9 (6.3-8.2) g/dL Albumin 3.3 L (3.5-5.0) g/dL Current Medications Generic Name Dose Route Start Last Admin Trade Name Freq PRN Reason Stop Dose Admin Albuterol Sulfate 2.5 mg 10/25/24 20:40 Albuterol Nebulized 2.5 Mg/3 Ml INHALATION RT-Q6H PRN Shortness Of Breath Aspirin 81 mg 10/25/24 21:00 10/25/24 21:33 Aspirin 81 Mg PO Not Given BID ROSE Atorvastatin Calcium 10 mg 10/25/24 21:00 10/25/24 21:33 Atorvastatin 10 Mg Tab PO 10 mg HS ROSE Administration Carvedilol 3.125 mg 10/25/24 21:00 10/25/24 21:33 Carvedilol 3.125 Mg Tab PO 3.125 mg BID-W/MEALS ROSE Administration Dapagliflozin 5 mg 10/25/24 20:45 10/25/24 21:33 Dapagliflozin Propanediol 5 Mg Tablet PO Not Given DAILY ROSE Dextrose/Water 25 ml 10/25/24 20:47 Dextrose 50% Syringe 50 Ml IVP PER PROTOCOL PRN Hypoglycemia Protocol Dextrose/Water 50 ml 10/25/24 20:47 Dextrose 50% Syringe 50 Ml IVP PER PROTOCOL PRN Hypoglycemia Protocol Duloxetine HCl 60 mg 10/26/24 09:00 Duloxetine Hcl 60 Mg Capsule.Dr PO DAILY [facility] Enoxaparin Sodium 30 mg 10/26/24 09:00 Enoxaparin 30 Mg/0.3 Ml Syringe SQ DAILY [facility] Furosemide 40 mg 10/26/24 09:00 Furosemide 10 Mg/Ml 4 Ml Vial IV Q12HR [facility] Insulin Human Lispro 0 unit 10/25/24 21:00 10/26/24 06:17 Insulin Lispro (Humalog) 100 Unit/Ml 10 Ml Vl SQ Not Given ACHS [facility] Protocol Isosorbide Mononitrate 15 mg 10/26/24 09:00 Isosorbide Mononitrate Er 15 Mg Tab PO DAILY [facility] Metolazone 5 mg 10/26/24 09:00 Metolazone 5 Mg Tab PO DAILY [facility] Midodrine 5 mg 10/26/24 07:30 Midodrine 5 Mg Tab PO TID-W/MEALS [facility] Naloxone HCl 0.2 mg 10/25/24 17:15 Naloxone 0.4 Mg/Ml 1 Ml Vial IV Q2M PRN Opioid Reversal Potassium Chloride 10 meq 10/26/24 09:00 Potassium Chloride Er 10 Meq Tab.Er.Prt PO DAILY [facility] Tamsulosin HCl 0.4 mg 10/26/24 09:00 Tamsulosin 0.4 Mg Cap.Er.24h PO DAILY ROSE Intake and Output 10/25/24 10/26/24 10/26/24 22:59 06:59 14:59 Output Total 200 200 Balance -200 -200 Output: Urine 200 200 Other: Voiding Method Urinal Weight 107.6 kg 10/25/24 13:22 10/25/24 13:22
[2024-10-26 09:01] LABS: BUN/Creat Ratio 22.62 Ratio (12.00-20.00); Blood Urea Nitrogen 54.3 mg/dL (9.0-27.0); Glucose 107 mg/dL (70-110)
[2024-10-26 09:02] LABS: ALT 10 U/L (10-49); AST 23 U/L (14-35); Albumin 3.3 g/dL (3.8-4.9); Albumin/Globulin Ratio 1.03 Ratio (1.60-3.17); Alkaline Phosphatase 118 U/L (41-126); Calcium 8.4 mg/dL (8.7-10.3); Carbon Dioxide 20.7 mmol/L (21.6-31.8); Chloride 101 mmol/L (96-109); Globulin 3.2 g/dL (1.6-3.3); Sodium 132 mmol/L (135-145); Total Protein 6.5 g/dL (6.2-8.2)
[2024-10-26] MEDS: ASPIRIN 81 MG PO SCH (09:16)
[2024-10-26] MEDS: ENOXAPARIN 30 MG/0.3 ML SYRINGE SQ SCH (09:27)
[2024-10-26 10:25] LABS: Basophils # (A) 0.06 X 10*3/uL (0.00-0.10); Basophils % (A) 2.9 %; Eosinophils # (A) 0.13 X 10*3/uL (0.04-0.35); Eosinophils % (A) 6.2 %; Lymphocytes % (A) 23.8 %; Monocytes # (A) 0.75 X 10*3/uL (0.20-1.00); Monocytes % (A) 35.7 %; Neutrophils # (A) 0.65 X 10*3/uL (1.80-7.70); Neutrophils % (A) 30.9 %
[2024-10-26 12:42] LABS: Glucose,Whole Blood 244 mg/dL (70-110)
--- NOTE | 2024-10-26 17:11 | P.CN ---
Psychiatric Consult - . Consult date: 10/26/24 Consult:: 10/26/24 17:04 IDENTIFYING DATA: This patient is a 59-year-old male REASON FOR REFERRAL: Psychiatry was consulted for suicidal ideations HISTORY OF PRESENT ILLNESS: The patient presented to the hospital with shortness of breath. Patient was admitted for CHF exacerbation with cardiology consulted. Patient seen and evaluated in his room. Patient reports experiencing passive suicidal thoughts since the passing of his mother close to 3 years ago. He states since his mother passed he has been struggling with taking care of his physical health which has deteriorated and also contributed to worsening depressive symptoms. He states feeling better today and adamantly denies any plan or intent to act on these thoughts, denying any current suicidal thoughts and denied any past history of suicide attempts. He has been on Cymbalta for 15 years and his PCP prescribes this. He is adamant on not making any adjustments to his Cymbalta which was encouraged. Patient also declined wanting to speak to a therapist for grief however this was also encouraged. At this time patient denies any suicidal or homicidal ideations, intent or plan. Patient denies any auditory, visual hallucinations and denies any paranoia or delusions. PAST PSYCHIATRIC HISTORY: Patient has a history of depression. Cymbalta 60 mg daily. Patient denies any previous psychiatric hospitalizations. Patient denies any psychiatric outpatient follow-up. Patient denies any history of suicide attempts in the past. PAST MEDICAL HISTORY: CHF, hypertension, diabetes. ALLERGIES: as per EMR. FAMILY PSYCHIATRIC/SUBSTANCE USE HISTORY: Patient states his brother has depression SOCIAL HISTORY: Patient lives alone MENTAL STATUS EXAM: General Appearance: Patient appears to be stated age is alert, pleasant, and cooperative. Patient appears to have fair hygiene and grooming wearing hospital gown with fair eye contact. Behavior: Patient is calmly lying in bed without any agitated behavior. Speech: Patient's speech is fluent and talkative Mood/Affect: Patient reports their mood is "better", affect is congruent Suicidality/Homicidality: Patient denies having any suicidal or homicidal ideation intent or plan. Perceptions: Patient denies any visual hallucinations and denies any auditory hallucinations Though content/process: There is no evidence of any delusional thought content and thought process is linear and logical. Memory and concentration: AOX3, grossly intact for the purposes of this session. Can spell "WORLD" backwards Judgment and insight: Poor IMPRESSIONS: Major depressive disorder PLAN: -At this time patient DOES NOT meet criteria for inpatient psychiatric admission. -Would recommend the following medication changes/additions: Continue Cymbalta 60 mg daily, patient not in agreement with adding medications or increasing this medication at this time. Patient also declined counseling however this was strongly encouraged given his grief -Can discontinue 1:1 sitter at this time as patient is not currently an imminent threat to themselves -Communicated plan to patient's nurse -Psychiatry will sign off at this time -Please contact with any questions.
[2024-10-26 17:36] LABS: Glucose,Whole Blood 167 mg/dL (70-110)
[2024-10-26 19:28] LABS: Glucose,Whole Blood 178 mg/dL (70-110)
[2024-10-27 02:52] VITALS: RESP 17
[2024-10-27 06:31] LABS: Glucose,Whole Blood 127 mg/dL (70-110)
[2024-10-27] MEDS: ENOXAPARIN 40 MG/0.4 ML SYRINGE SQ SCH (08:15)
[2024-10-27 08:35] LABS: BUN/Creat Ratio 23.96 Ratio (12.00-20.00); Blood Urea Nitrogen 57.5 mg/dL (9.0-27.0); Calcium 8.4 mg/dL (8.7-10.3); Carbon Dioxide 20.8 mmol/L (21.6-31.8); Chloride 101 mmol/L (96-109); Glucose 140 mg/dL (70-110); Potassium 4.7 mmol/L (3.5-5.5); Sodium 132 mmol/L (135-145)
--- NOTE | 2024-10-27 08:50 | P.PN ---
Subjective HISTORY OF PRESENT ILLNESS: This is a 58-year-old male with a past medical history significant for congestive heart failure, coronary artery disease, chronic kidney disease, hypertension, hyperlipidemia, diabetes, cardiomegaly, and obesity. Patient follows in the office with Dr. Gates. We have been asked to see the patient in consultation for CHF. Patient examined at the bedside. Patient presented to the hospital with a chief complaint of shortness of breath. Patient states he has also noticed increased lower extremity swelling. He denies any chest pain or pressure. Patient states he has not been compliant with his medications on an outpatient basis. Additionally, the patient made remarks of being suicidal. Psychiatry is consulted. There is a food safety scientist at the bedside. DIAGNOSTICS: - EKG reveals sinus mechanism with incomplete right bundle branch block - Chest xray small right pleural effusion decreased from 07/19/2025. Trace left pleural effusion suggested. Mild pulmonary vascular congestion - Laboratory data: WBC 2.10. Hemoglobin 8.0. Platelet count 300. Sodium 130. Potassium 5.0. BUN 52. Creatinine 2.2. Troponin negative x 1. proBNP 22,200. - Current home cardiac medications include Zaroxolyn 5 mg daily, carvedilol 3.125 mg twice a day, simvastatin 20 mg at night, midodrine 5 mg 3 times daily with meals, Imdur 15 mg daily, Lasix 40 mg twice a day, Farxiga 5 mg daily, aspirin 81 mg twice a day - Most recent echocardiogram obtained in May 2024 reveals EF 20 to 25%, global hypokinesis, moderate pulmonary hypertension, moderate MR, mild to moderate TR -Patient underwent Lexiscan stress test in January 2024 revealing large area of previous inferior wall infarct. Possible minimal dale-infarct ischemia at the apex. Transient ischemic dilatation ratio was elevated. - Cardiac catheterization history: September 2023 revealing three-vessel coronary artery disease with chronic occlusion of the right coronary artery and significant disease involving the circumflex coronary artery and diffuse disease involving the LAD. Medical management was recommended 10/27/2024 Patient examined this morning at the bedside. Patient currently denies chest pain or pressure. He denies shortness of breath. He reports improvement in his lower extremity edema. He remains on IV Lasix. PHYSICAL EXAM: VITAL SIGNS: Reviewed. GENERAL: Well-developed in no acute distress. HEENT: Head is normocephalic. Pupils are equal, round. Sclerae anicteric. Mucous membranes of the mouth are moist. Neck supple. No JVD or thyromegaly LUNGS: Respirations even and unlabored. Lungs diminished bilaterally HEART: Regular rate and rhythm. S1 and S2 heard. ABDOMEN: Soft. Nondistended. Nontender. EXTREMITIES: Normal range of motion. No clubbing or cyanosis. Peripheral pulses intact. 1+ bilateral lower extremity edema NEUROLOGIC: Awake and alert. Oriented x 3. 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 Resume oral Lasix 40 mg twice daily Reinforced low-sodium diet and medication compliance with patient Patient is stable for discharge home today from a cardiac standpoint Nurse practitioner note has been reviewed by physician. Signing provider agrees with the documented findings, assessment, and plan of care documented by TIE PRESSER as a scribe. Objective - Vital Signs Vital signs: Vital Signs Temp 97.9 F 10/27/24 02:51 Pulse 71 10/27/24 02:51 Resp 17 10/27/24 02:51 BP 94/51 10/27/24 02:51 Pulse Ox 99 10/27/24 02:51 FiO2 Intake & Output 10/26/24 10/27/24 10/27/24 18:59 06:59 18:59 Intake Total 240 Output Total 250 175 Balance -10 -175 Weight 109 kg Intake: Oral 240 Output: Urine 250 175 Other: Voiding Method Urinal Urinal # Voids 1 - Labs CBC & Chem 7: 10/26/24 05:21 10/27/24 04:08 Labs: Abnormal Lab Results - Last 24 Hours (Table) 10/26/24 10/26/24 10/26/24 Range/Units 05:21 05:21 12:40 Neutrophils # 0.65 L (1.80-7.70) X 10*3/uL Lymphocytes # 0.50 L (0.90-5.00) X 10*3/uL Sodium 132 L (135-145) mmol/L Carbon Dioxide 20.7 L (21.6-31.8) mmol/L BUN 54.3 H (9.0-27.0) mg/dL Creatinine 2.4 H (0.6-1.5) mg/dL Est GFR (CKD-EPI) 31 L (>=60) BUN/Creatinine Ratio 22.62 H (12.00-20.00) Ratio Glucose (70-110) mg/dL POC Glucose (mg/dL) 244 H (70-110) mg/dL Calcium 8.4 L (8.7-10.3) mg/dL Albumin 3.3 L (3.8-4.9) g/dL Albumin/Globulin Ratio 1.03 L (1.60-3.17) Ratio 10/26/24 10/26/24 10/27/24 Range/Units 17:34 19:27 04:08 Neutrophils # (1.80-7.70) X 10*3/uL Lymphocytes # (0.90-5.00) X 10*3/uL Sodium 132 L (135-145) mmol/L Carbon Dioxide 20.8 L (21.6-31.8) mmol/L BUN 57.5 H (9.0-27.0) mg/dL Creatinine 2.4 H (0.6-1.5) mg/dL Est GFR (CKD-EPI) 31 L (>=60) BUN/Creatinine Ratio 23.96 H (12.00-20.00) Ratio Glucose 140 H (70-110) mg/dL POC Glucose (mg/dL) 167 H 178 H (70-110) mg/dL Calcium 8.4 L (8.7-10.3) mg/dL Albumin (3.8-4.9) g/dL Albumin/Globulin Ratio (1.60-3.17) Ratio 10/27/24 Range/Units 06:30 Neutrophils # (1.80-7.70) X 10*3/uL Lymphocytes # (0.90-5.00) X 10*3/uL Sodium (135-145) mmol/L Carbon Dioxide (21.6-31.8) mmol/L BUN (9.0-27.0) mg/dL Creatinine (0.6-1.5) mg/dL Est GFR (CKD-EPI) (>=60) BUN/Creatinine Ratio (12.00-20.00) Ratio Glucose (70-110) mg/dL POC Glucose (mg/dL) 127 H (70-110) mg/dL Calcium (8.7-10.3) mg/dL Albumin (3.8-4.9) g/dL Albumin/Globulin Ratio (1.60-3.17) Ratio
[2024-10-27 12:17] LABS: Glucose,Whole Blood 137 mg/dL (70-110)
[2024-10-27 14:08] VITALS: BP 90/54; PULSE 77; TEMP 97.7
[2024-10-27] MEDS ORDERED: FUROSEMIDE 40 MG TAB PO SCH (16:00)
--- NOTE | 2024-11-14 18:48 | P.DS ---
Providers Date of admission: 10/25/24 17:15 Expected date of discharge: 10/27/24 Attending physician: Jovani Chen MD Consults: 10/25/24 17:15 Consult Physician Routine Consulting Provider: [facility] Consult Reason/Comments: chf Do you want consulting provider notified?: Yes 10/26/24 04:23 Consult Physician Routine Consulting Provider: Psychiatry - [facility] Consult Reason/Comments: suicidal ideation Do you want consulting provider notified?: Already Contacted [facility]: 58-year-old male with a past medical history significant for congestive heart failure, coronary artery disease, chronic kidney disease, hypertension, hyperlipidemia, diabetes, cardiomegaly, and obesity. Patient follows in the office with Dr. Gates. We have been asked to see the patient in consultation for CHF. Patient examined at the bedside. Patient presented to the hospital with a chief complaint of shortness of breath. Patient states he has also noticed increased lower extremity swelling. He denies any chest pain or pressure. Patient states he has not been compliant with his medications on an outpatient basis. Additionally, the patient made remarks of being suicidal. Psychiatry is consulted. 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 DIAGNOSTICS: - EKG reveals sinus mechanism with incomplete right bundle branch block - Chest xray small right pleural effusion decreased from 07/19/2025. Trace left pleural effusion suggested. Mild pulmonary vascular congestion - Laboratory data: WBC 2.10. Hemoglobin 8.0. Platelet count 300. Sodium 130. Potassium 5.0. BUN 52. Creatinine 2.2. Troponin negative x 1. proBNP 22,200. - Current home cardiac medications include Zaroxolyn 5 mg daily, carvedilol 3.125 mg twice a day, simvastatin 20 mg at night, midodrine 5 mg 3 times daily with meals, Imdur 15 mg daily, Lasix 40 mg twice a day, Farxiga 5 mg daily, aspirin 81 mg twice a day - Most recent echocardiogram obtained in May 2024 reveals EF 20 to 25%, global hypokinesis, moderate pulmonary hypertension, moderate MR, mild to moderate TR -Patient underwent Lexiscan stress test in January 2024 revealing large area of previous inferior wall infarct. Possible minimal dale-infarct ischemia at the apex. Transient ischemic dilatation ratio was elevated. - Cardiac catheterization history: September 2023 revealing three-vessel coronary artery disease with chronic occlusion of the right coronary artery and significant disease involving the circumflex coronary artery and diffuse disease involving the LAD. Medical management was recommended ASSESSMENT: Shortness of breath Acute on chronic heart failure with reduced EF, 20-25% Noncompliance with low-sodium diet and medications Chronic kidney disease Coronary artery disease with known DIRECTOR OF PHARMACY of RCA and significant disease involving circumflex and LAD Ischemic cardiomyopathy, on LifeVest earlier this year, previously declining ICD Hypertension Hyperlipidemia Diabetes Obesity: BMI 36.1 Moderate pulmonary hypertension History of multiple paracentesis with removal of 12 L of fluid, 10/20/2024 Patient evaluated by cardiology with following recommendation No need to repeat echocardiogram as this was performed in May 2024 Discontinue IV Lasix. Resume oral Lasix 40 mg twice daily Reinforced low-sodium diet and medication compliance with patient Patient is stable for discharge home today from a cardiac standpoint Patient Condition at Discharge: Stable Plan - Discharge Summary Discharge Rx Participant: Yes New Discharge Prescriptions: Continue DULoxetine HCL [Cymbalta] 60 mg PO DAILY Potassium Chloride ER [K-Dur 10] 10 meq PO DAILY #30 tab Vitamin D3(Unknown Dose) 1 tab PO DIRECTED Dulaglutide [Trulicity] 0.75 mg SQ SA carvediloL [Coreg] 3.125 mg PO BID-W/MEALS #60 tab Isosorbide Mononitrate ER [Imdur] 15 mg PO DAILY Albuterol Inhaler [Ventolin Hfa Inhaler] 2 puff INHALATION RT-Q6H PRN PRN Reason: Shortness Of Breath Simvastatin [Zocor] 20 mg PO HS Tamsulosin [Flomax] 0.4 mg PO DAILY Dapagliflozin Propanediol [Farxiga] 5 mg PO DAILY #30 tab Aspirin 81 mg PO BID Midodrine [ProAmatine] 5 mg PO TID-W/MEALS metOLazone [Zaroxolyn] 5 mg PO DAILY Mupirocin 2% Oint [Bactroban 2% Oint] 1 applic TOPICAL TID Furosemide [Lasix] 40 mg PO BID Discharge Medication List carvediloL [Coreg] 3.125 mg PO BID-W/MEALS #60 tab 01/30/24 [Rx] Albuterol Inhaler [Ventolin Hfa Inhaler] 2 puff INHALATION RT-Q6H PRN 05/17/24 [History] DULoxetine HCL [Cymbalta] 60 mg PO DAILY 05/17/24 [History] Isosorbide Mononitrate ER [Imdur] 15 mg PO DAILY 05/17/24 [History] Simvastatin [Zocor] 20 mg PO HS 05/17/24 [History] Tamsulosin [Flomax] 0.4 mg PO DAILY 05/17/24 [History] Dapagliflozin Propanediol [Farxiga] 5 mg PO DAILY #30 tab 05/25/24 [Rx] Potassium Chloride ER [K-Dur 10] 10 meq PO DAILY #30 tab 05/25/24 [Rx] Aspirin 81 mg PO BID 07/18/24 [History] Vitamin D3(Unknown Dose) 1 tab PO DIRECTED 07/18/24 [History] Dulaglutide [Trulicity] 0.75 mg SQ SA 09/01/24 [History] Midodrine [ProAmatine] 5 mg PO TID-W/MEALS 09/01/24 [History] metOLazone [Zaroxolyn] 5 mg PO DAILY 09/01/24 [History] Furosemide [Lasix] 40 mg PO BID 10/25/24 [History] Mupirocin 2% Oint [Bactroban 2% Oint] 1 applic TOPICAL TID 10/25/24 [History] Follow up Appointment(s)/Referral(s): Patricio Banuelos DO [Primary Care Provider] - 1 Week (please call for an appointmen ) Patient Instructions/Handouts: Heart Failure (GEN) Discharge/Stand Alone Forms: Outpatient Counseling Discharge Disposition: HOME SELF-CARE
== END 2024-10-27 15:54 | disposition home or self-care (01) ==
LOC: EC 11:57 → SUPCPDRO 11:57 → 6NMEDSUR 17:15
PROVIDERS: ADMIT Internal Medicine; ATTEND Internal Medicine
DX: I13.0 Hypertensive heart and chronic kidney disease with heart failure and stage 1 through stage 4 chronic kidney disease, or unspecified chronic kidney disease (principal); I50.23 Acute on chronic systolic (congestive) heart failure; N18.9 Chronic kidney disease, unspecified; F32.9 Major depressive disorder, single episode, unspecified; E11.22 Type 2 diabetes mellitus with diabetic chronic kidney disease; D63.1 Anemia in chronic kidney disease; I25.10 Atherosclerotic heart disease of native coronary artery without angina pectoris; E78.5 Hyperlipidemia, unspecified; I45.10 Unspecified right bundle-branch block; I27.20 Pulmonary hypertension, unspecified; I08.1 Rheumatic disorders of both mitral and tricuspid valves; I25.5 Ischemic cardiomyopathy; E66.9 Obesity, unspecified; Z68.36 Body mass index [BMI] 36.0-36.9, adult; Z91.119 Patient's noncompliance with dietary regimen due to unspecified reason; Z91.148 Patient's other noncompliance with medication regimen for other reason; Z74.3 Need for continuous supervision; R45.851 Suicidal ideations; Z79.82 Long term (current) use of aspirin; Z79.85 Long-term (current) use of injectable non-insulin antidiabetic drugs; Z79.84 Long term (current) use of oral hypoglycemic drugs; Z79.899 Other long term (current) drug therapy; Z88.0 Allergy status to penicillin; Z88.2 Allergy status to sulfonamides; Z11.52 Encounter for screening for COVID-19; Z11.59 Encounter for screening for other viral diseases
CPT/HCPCS: 96376 ×2; 96372 ×2; 96374; 99285; 36415; 93005 ×2; 97530 ×2; 97161; 97166; 83880; 80053 ×2; 80048; 83605; 83735; 84484; 85025 ×2; 85610; 85730; 87636; 71046; G0378 ×3; J1940 ×3; J1650 ×2